=== PATIENT | female | born 1965 | race Caucasian/White ===

== ENCOUNTER 2017-05-19 12:22 | Emergency (ER) | payer MEDICARE, MEDICAID, SELFPAY ==
[2017-05-19 12:23] VITALS: BP 154/91; PULSE 125; RESP 16; TEMP 37; O2SAT 98; BMI 42.3
--- NOTE | 2017-05-19 13:26 | NURSING ---
NO LW OR POA
--- NOTE | 2017-05-19 13:45 | ED.DCSUM_ITS ---
- ER Visit Summary Date of Service: 05/19/17 Chief Complaint: Abscess History of Present Illness: The patient is a 51 F who states that she noted an abscess to the right axilla yesterday. It is already spontaneously draining. She denies fever. She states 2 people who live in the same house either have or have recently had MRSA. Patient is also complaining of increasing wheezing and shortness of breath consistent with her COPD. She is requesting steroids to help with her breathing. Physical Examination: Vital signs are significant for heart rate 125, otherwise unremarkable. Patient's lying in bed no acute distress. She is nontoxic appearing. Head neck examination is normal. Heart is tachycardic and regular. Lung sounds are with mild expiratory wheeze. Abdomen is soft, obese, nontender. Examination significant for right axilla which reveals a 1 x 2 cm draining abscess. No cellulitis is noted. Test Results: [] Emergency Department Course and Treatment: As her abscess is already draining, further I&D is not required at this time. She will be treated with doxycycline for MRSA coverage. She will also be given 4 days of prednisone, first dose given here. Treatment Plan: [] Disposition: Discharge Impression: 1. Cutaneous abscess right axilla 2. COPD exacerbation This note was generated with [employer] dictation software. It may contain incorrect words, spelling, and punctuation that were not noted in review of the chart prior to signing ED Disposition - Plan for ED Patient: Disposition: Home or Assisted Living Chief Complaint: Abscess Instructions: ED Staph Infec Abx Tx Only, ED COPD Flare Prescriptions: Prednisone [Deltasone] 60 mg PO DAILY #9 tablet Doxycycline Monohydrate 100 mg PO BID #20 capsule Referrals: Fredy Walsh MD [Primary Care Provider] - 1-2 Weeks
--- NOTE | 2017-05-19 14:01 | ED.DEP ---
ED Disposition - Plan for ED Patient: Disposition: Home or Assisted Living Chief Complaint: Abscess Instructions: ED Staph Infec Abx Tx Only, ED COPD Flare Prescriptions: Prednisone [Deltasone] 60 mg PO DAILY #9 tablet Doxycycline Monohydrate 100 mg PO BID #20 capsule Referrals: Fredy Walsh MD [Primary Care Provider] - 1-2 Weeks
[2017-05-19] MEDS: Doxycycline 100 MG CAPSULE PO (14:14)
[2017-05-19 14:17] VITALS: PULSE 112; RESP 16; O2SAT 98
== END 2017-05-19 14:18 | disposition home or self-care (01) ==
PROVIDERS: Emergency Provider Emergency Medicine; Family Provider Family Medicine; PCP Family Medicine
DX: L02.411 Cutaneous abscess of right axilla (principal); J44.1 Chronic obstructive pulmonary disease with (acute) exacerbation; E11.9 Type 2 diabetes mellitus without complications; I10 Essential (primary) hypertension; M06.9 Rheumatoid arthritis, unspecified; L40.9 Psoriasis, unspecified; E66.9 Obesity, unspecified; Z72.0 Tobacco use; Z79.84 Long term (current) use of oral hypoglycemic drugs; Z79.899 Other long term (current) drug therapy
CPT/HCPCS: 99283

== ENCOUNTER 2017-06-04 11:35 | Emergency (ER) | payer MEDICARE, MEDICAID, SELFPAY ==
[2017-06-04 11:37] VITALS: BP 109/82; PULSE 117; RESP 20; TEMP 36.8; O2SAT 97; BMI 43.2
--- NOTE | 2017-06-04 12:22 | RAD_ITS ---
STUDY: X-RAY CHEST REASON FOR EXAM: Female, 51 years old. Cough for several weeks. TECHNIQUE: PA and lateral views of the chest. COMPARISON: Comparison is made with prior study dated April 03, 2017. FINDINGS: EKG electrodes are seen. Hyperinflation. The lungs are clear. There is no demonstrated pleural abnormality. Normal size heart. Normal mediastinum and tony. Normal visualized pulmonary arteries. Normal visualized aortic arch and descending thoracic aorta. Normal visualized thoracic spine. Normal visualized ribs, clavicles, and shoulders. Surgical clips are seen in the left upper quadrant. RAD/Chest PA and Lateral IMPRESSION: Hyperinflation. The lungs are clear. Electronically Signed: Zander Bethea MD at 13:21 EST Tel [phone], Service support ,
--- NOTE | 2017-06-04 12:22 | EKG12_ITS ---
Test Reason : GENERAL Blood Pressure : / mmHG Vent. Rate : 114 BPM Atrial Rate : 114 BPM P-R Int : 130 ms QRS Dur : 074 ms QT Int : 340 ms P-R-T Axes : 043 039 030 degrees QTc Int : 468 ms Sinus tachycardia with occasional Premature ventricular complexes Otherwise normal ECG Confirmed by TAMI DANG, KAYDEN ([id number]), associate entertainment editor JOANIE MARTINES ([id number]) on 06/07/2017 2:55:07 PM Referred By: OTONIEL Confirmed By:KAYDEN GARRETT MD
--- NOTE | 2017-06-04 12:24 | ED.VISSUMM ---
- ER Visit Summary Date of Service: 06/04/17 Chief Complaint: Cough and dysuria History of Present Illness: The patient is a 51 F with history of COPD who presents for 1 week of cough and 2 days of dysuria. Patient states she has had a nonproductive cough for 1 week with some associated shortness of breath. She endorses a fever in the evenings. She has had nausea but no abdominal pain, chest pain, vomiting, or diarrhea. For today she is also had dysuria and suprapubic abdominal pain. She states she aches all over and just does not feel well. So states that she thinks she has a yeast infection as she is having some cottage cheeselike discharge. Patient is a smoker. She has not had any recent steroid use or antibiotics. She has history of diabetes, hypertension, COPD. Physical Examination: Vital signs: afebrile, hemodynamically stable, no hypoxia on room air General: well nourished, well developed, obese, in no distress Skin: warm, dry, no rash, no pallor HEENT: normocephalic and atraumatic; PERRL, EOMI, moist mucous membranes, neck is supple, paraspinal tenderness bilateral, full range of motion, no lymphadenopathy, no meningismus Cardiovascular: Tachycardic rate and rhythm without murmurs, no peripheral edema, 2+ pulses all distal extremities Respiratory: No increased work of breathing, lungs show diffuse wheezing and coarseness Abdominal: Abdomen is soft, suprapubic tenderness with normoactive bowel sounds, no guarding or rebound, no masses MSK: Moves all extremities, no deformities, normal strength Neuro: Awake and alert, oriented ?4. No facial droop, sensation and motor function intact and symmetric Test Results: Abnormal Lab Results 06/04/17 06/04/17 06/04/17 12:15 12:47 12:47 WBC 11.6 H RBC 5.30 Hgb 13.6 Hct 42.8 MCV 80.8 L MCH 25.7 L MCHC 31.8 L RDW 16.0 H RDW Differential 46.7 H Plt Count 322 MPV 9.7 Immature Gran % (Auto) 0.300 Neut % (Auto) 63.4 Lymph % (Auto) 27.2 [facility] % (Auto) 7.2 Eos % (Auto) 1.6 Baso % (Auto) 0.3 Absolute Neuts (auto) 7.4 Absolute Lymphs (auto) 3.15 Total Counted Not Reportable Sodium 140 Potassium 3.8 Chloride 103 Carbon Dioxide 25.0 Anion Gap 12 BUN 6 L Creatinine 0.68 Estim Creat Clear Calc 102.29 Est GFR (MDRD) Af Amer 118 Est GFR (MDRD) Non-Af 97 BUN/Creatinine Ratio 8.8 L Glucose 187 H Calcium 9.0 Troponin I < 0.02 Urine Color Yellow Urine Clarity Clear Urine pH 6.0 Ur Specific [place] 1.015 Urine Protein Negative Urine Glucose (UA) 1000 H Urine Ketones 50 H Urine Occult Blood 10 H Urine Nitrite Negative Urine Bilirubin Negative Urine Urobilinogen Normal Ur Leukocyte Esterase 100 H Urine RBC 0-5 SEEN Urine WBC 5-10 SEEN Ur Squamous Epith Cells 10-25 SEEN Urine Bacteria 1+ Urine Mucus 0 SEEN Urine Yeast 2+ Emergency Department Course and Treatment: Patient has history of COPD, and her respiratory exam is consistent with a COPD exacerbation. Chest x-ray showed no infiltrates but hyperinflation consistent with COPD. EKG showed a sinus rhythm at a tachycardic rate without ischemia or ectopy. Patient was given DuoNeb and Solu-Medrol as well as albuterol treatments. She had improvement in her breathing afterwards. Labs showed no significant derangements. Troponin negative. Urinalysis was significantly contaminated sample with epithelial cells and did have positive yeast likely secondary to patient's complaint of cottage cheese discharge. Patient was given Diflucan to treat the candidal vulvovaginitis. She was started on a prednisone burst that she will start tomorrow. She was also given a Z-Cabrera. She was given a prescription for 1 additional Diflucan to use in 1 week if she does not have resolution of symptoms. She was discharged home in improved condition and is to follow-up with her primary care doctor. Treatment Plan: [] Disposition: [] Impression: Candidal vulvovaginitis, COPD exacerbation This note was generated with [employer] dictation software. It may contain incorrect words, spelling, and punctuation that were not noted in review of the chart prior to signing ED Disposition - Plan for ED Patient: Disposition: Home or Assisted Living Chief Complaint: General Illness Instructions: ED COPD Flare, ED Vaginal Infec Fungal Tanya Prescriptions: Azithromycin [Zithromax Z-Cabrera] 250 mg PO UD #1 box Fluconazole [Diflucan] 150 mg PO X1 PRN #1 tab PRN Reason: yeast infection Prednisone [Deltasone] 40 mg PO DAILY #8 tab Referrals: Fredy Walsh MD [Primary Care Provider] - 1-2 Days if not improving Additional Instructions: Please continue using your medications for COPD at home as prescribed by your doctor. Take the prednisone starting tomorrow for 4 days. Take the antibiotic to help prevent any infection related to your COPD. If in 1 week you are not having improvement of your yeast infection, you may take the additional dose of Diflucan that has been prescribed to you.
--- NOTE | 2017-06-04 12:27 | ED.DCSUM_ITS ---
- ER Visit Summary Date of Service: 06/04/17 Chief Complaint: Cough and dysuria History of Present Illness: The patient is a 51 F with history of COPD who presents for 1 week of cough and 2 days of dysuria. Patient states she has had a nonproductive cough for 1 week with some associated shortness of breath. She endorses a fever in the evenings. She has had nausea but no abdominal pain, chest pain, vomiting, or diarrhea. For today she is also had dysuria and suprapubic abdominal pain. She states she aches all over and just does not feel well. So states that she thinks she has a yeast infection as she is having some cottage cheeselike discharge. Patient is a smoker. She has not had any recent steroid use or antibiotics. She has history of diabetes, hypertension, COPD. Physical Examination: Vital signs: afebrile, hemodynamically stable, no hypoxia on room air General: well nourished, well developed, obese, in no distress Skin: warm, dry, no rash, no pallor HEENT: normocephalic and atraumatic; PERRL, EOMI, moist mucous membranes, neck is supple, paraspinal tenderness bilateral, full range of motion, no lymphadenopathy, no meningismus Cardiovascular: Tachycardic rate and rhythm without murmurs, no peripheral edema , 2+ pulses all distal extremities Respiratory: No increased work of breathing, lungs show diffuse wheezing and coarseness Abdominal: Abdomen is soft, suprapubic tenderness with normoactive bowel sounds , no guarding or rebound, no masses MSK: Moves all extremities, no deformities, normal strength Neuro: Awake and alert, oriented ?4. No facial droop, sensation and motor function intact and symmetric Test Results: Abnormal Lab Results 06/04/17 06/04/17 06/04/17 12:15 12:47 12:47 WBC 11.6 H RBC 5.30 Hgb 13.6 Hct 42.8 MCV 80.8 L MCH 25.7 L MCHC 31.8 L RDW 16.0 H RDW Differential 46.7 H Plt Count 322 MPV 9.7 Immature Gran % (Auto) 0.300 Neut % (Auto) 63.4 Lymph % (Auto) 27.2 [place] % (Auto) 7.2 Eos % (Auto) 1.6 Baso % (Auto) 0.3 Absolute Neuts (auto) 7.4 Absolute Lymphs (auto) 3.15 Total Counted Not Reportable Sodium 140 Potassium 3.8 Chloride 103 Carbon Dioxide 25.0 Anion Gap 12 BUN 6 L Creatinine 0.68 Estim Creat Clear Calc 102.29 Est GFR (MDRD) Af Amer 118 Est GFR (MDRD) Non-Af 97 BUN/Creatinine Ratio 8.8 L Glucose 187 H Calcium 9.0 Troponin I < 0.02 Urine Color Yellow Urine Clarity Clear Urine pH 6.[address] 1.015 Urine Protein Negative Urine Glucose (UA) 1000 H Urine Ketones 50 H Urine Occult Blood 10 H Urine Nitrite Negative Urine Bilirubin Negative Urine Urobilinogen Normal Ur Leukocyte Esterase 100 H Urine RBC 0-5 SEEN Urine WBC 5-10 SEEN Ur Squamous Epith Cells 10-25 SEEN Urine Bacteria 1+ Urine Mucus 0 SEEN Urine Yeast 2+ Emergency Department Course and Treatment: Patient has history of COPD, and her respiratory exam is consistent with a COPD exacerbation. Chest x-ray showed no infiltrates but hyperinflation consistent with COPD. EKG showed a sinus rhythm at a tachycardic rate without ischemia or ectopy. Patient was given DuoNeb and Solu-Medrol as well as albuterol treatments. She had improvement in her breathing afterwards. Labs showed no significant derangements. Troponin negative. Urinalysis was significantly contaminated sample with epithelial cells and did have positive yeast likely secondary to patient's complaint of cottage cheese discharge. Patient was given Diflucan to treat the candidal vulvovaginitis. She was started on a prednisone burst that she will start tomorrow. She was also given a Z-Cabrera. She was given a prescription for 1 additional Diflucan to use in 1 week if she does not have resolution of symptoms. She was discharged home in improved condition and is to follow-up with her primary care doctor. Treatment Plan: [] Disposition: [] Impression: Candidal vulvovaginitis, COPD exacerbation This note was generated with [employer] dictation software. It may contain incorrect words, spelling, and punctuation that were not noted in review of the chart prior to signing ED Disposition - Plan for ED Patient: Disposition: Home or Assisted Living Chief Complaint: General Illness Instructions: ED COPD Flare, ED Vaginal Infec Fungal Tanya Prescriptions: Azithromycin [Zithromax Z-Cabrera] 250 mg PO UD #1 box Fluconazole [Diflucan] 150 mg PO X1 PRN #1 tab PRN Reason: yeast infection Prednisone [Deltasone] 40 mg PO DAILY #8 tab Referrals: Fredy Walsh MD [Primary Care Provider] - 1-2 Days if not improving Additional Instructions: Please continue using your medications for COPD at home as prescribed by your doctor. Take the prednisone starting tomorrow for 4 days. Take the antibiotic to help prevent any infection related to your COPD. If in 1 week you are not having improvement of your yeast infection, you may take the additional dose of Diflucan that has been prescribed to you.
[2017-06-04 12:33] LABS: Mucous, Urine 0 SEEN /hpf (<or=2+)
[2017-06-04] MEDS: Ipratropium/Albuterol Sulfate 3 ML AMPUL.NEB INHALATION (12:33)
[2017-06-04] MEDS: Albuterol 2.5 MG/3 ML VIAL.NEB. INHALATION ×3 (12:33)
[2017-06-04 12:36] LABS: Color, Urine Yellow (Yellow); Glucose, Dipstick 1000 mg/dl (Normal); Ketone-Dipstick 50 mg/dl (Negative); Leukocyte Esterase-Dipstick 100 /ul (Negative); Nitrite-Dipstick Negative (Negative); Occult Blood-Urine 10 /ul (Negative); Protein-Dipstick Negative (Negative); Specific Gravity, Urine 1.015 (1.002-1.030); Urine Bilirubin Dipstick Negative (Negative); Urine Clarity Clear (Clear); Urine Urobilinogen Normal (Normal)
[2017-06-04 12:43] LABS: White Blood Cells 5-10 SEEN /hpf (0-5)
[2017-06-04 12:44] LABS: Red Blood Cells-Urine 0-5 SEEN /hpf (0-5); Squamous Epithelial Cells - UA 10-25 SEEN /hpf (5-10)
[2017-06-04 12:45] LABS: Bacteria 1+ /hpf (None Seen); Yeast-Urine 2+ /hpf (None Seen)
[2017-06-04] MEDS: MethylPREDNISolone 125 MG/2 ML Vial IV (12:49)
[2017-06-04 12:55] LABS: Absolute Lymphocyte Count 3.15 X10^3/ul (0.83-4.51); Absolute Neutrophil Count 7.4 X10^3/uL (2.0-7.7); Basophil# 0.04 X10^3/uL; Basophil% 0.3 % (0-1); Eosinophil# 0.18 X10^3/uL; Eosinophils% 1.6 % (0-5); Hematocrit 42.8 % (37-47); Hemoglobin 13.6 g/dl (12.0-15.0); Lymphocyte # 3.15 X10^3/ul (4.0); Lymphocyte % 27.2 % (19-41); Mean Corp Hgb Conc 31.8 g/gl (32-36); Mean Corpuscular Hgb 25.7 pg (27.0-32.0); Mean Corpuscular Volume 80.8 fL (81-99); Mean Platelet Vol. 9.7 fl (6.2-12.0); Monocyte# 0.83 X10^3/uL; Monocyte% 7.2 % (0-10); Neutrophil # 7.36 X10^3/uL (2.7-7.7); Neutrophil % 63.4 % (47-70); Platelet Count 322 K/mm3 (150-450); RBC Distribution Width SD 46.7 fl (35.1-43.9); White Blood Count 11.6 K/mm3 (4.4-11.0)
[2017-06-04 12:56] LABS: POSITIVE COUNT NO; POSITIVE DIFFERENTIAL NO; POSITIVE MORPHOLOGY NO
[2017-06-04 13:17] LABS: Anion Gap 12 (5-15); BUN 6 mg/dL (7-18); BUN/Creat Ratio 8.8 RATIO (10-20); Chloride 103 mmol/L (98-107); Creatinine, Serum 0.68 mg/dL (0.55-1.02); EST Glomerular Filtration Rate 97 mL/min (>60); Est Glom Filt Rate - Afr Amer 118 mL/min (>60); Estimated Creatinine Clearance 102.29 ml/min; Glucose 187 mg/dL (74-106); Potassium 3.8 mmol/L (3.5-5.1); Sodium Level 140 mmol/L (136-145)
[2017-06-04 13:35] VITALS: PULSE 119; RESP 17; O2SAT 94
--- NOTE | 2017-06-04 14:26 | ED.DEP ---
ED Disposition - Plan for ED Patient: Disposition: Home or Assisted Living Chief Complaint: General Illness Instructions: ED Vaginal Infec Fungal Tanya, ED COPD Flare Prescriptions: Azithromycin [Zithromax Z-Cabrera] 250 mg PO UD #1 box Fluconazole [Diflucan] 150 mg PO X1 PRN #1 tab PRN Reason: yeast infection Prednisone [Deltasone] 40 mg PO DAILY #8 tab Referrals: Fredy Walsh MD [Primary Care Provider] - 1-2 Days if not improving Additional Instructions: Please continue using your medications for COPD at home as prescribed by your doctor. Take the prednisone starting tomorrow for 4 days. Take the antibiotic to help prevent any infection related to your COPD. If in 1 week you are not having improvement of your yeast infection, you may take the additional dose of Diflucan that has been prescribed to you.
[2017-06-04 14:32] VITALS: BP 134/76; PULSE 120; RESP 19; O2SAT 96
[2017-06-04] MEDS: Fluconazole 100 MG Tablet 200 MG PO (14:36)
== END 2017-06-04 14:46 | disposition home or self-care (01) ==
PROVIDERS: Emergency Provider Emergency Medicine; Family Provider Family Medicine; PCP Family Medicine
DX: J44.1 Chronic obstructive pulmonary disease with (acute) exacerbation (principal); B37.3 Candidiasis of vulva and vagina; I49.3 Ventricular premature depolarization; E11.9 Type 2 diabetes mellitus without complications; E66.9 Obesity, unspecified; F17.200 Nicotine dependence, unspecified, uncomplicated; Z79.84 Long term (current) use of oral hypoglycemic drugs; Z79.899 Other long term (current) drug therapy
CPT/HCPCS: 71046; 80048; 81001; 84484; 85025; 87086; 87088; 87804; 93005; 96361; 96374; 99285; J7040

== ENCOUNTER 2017-08-20 20:06 | Emergency (ER) | payer MEDICARE, MEDICAID, SELFPAY ==
[2017-08-20 20:10] VITALS: BP 136/84; PULSE 98; RESP 14; TEMP 36.3; O2SAT 98; BMI 42.8
--- NOTE | 2017-08-20 20:26 | ED.RN ---
PT REPEATEDLY ASKING FOR WATER AND HAS CHANGING COMPLAINTS. PT ALSO TOLD JAKUB THAT IF SHE HAD TO WAIT TOO LONG SHE WANTED TO CALL A [facility] TO GO HOME.
[2017-08-20 21:30] VITALS: PULSE 88; RESP 20
--- NOTE | 2017-08-20 22:02 | EKG12_ITS ---
Test Reason : CP Blood Pressure : / mmHG Vent. Rate : 092 BPM Atrial Rate : 092 BPM P-R Int : 128 ms QRS Dur : 074 ms QT Int : 388 ms P-R-T Axes : 066 075 045 degrees QTc Int : 479 ms Sinus rhythm with occasional Premature ventricular complexes Low voltage QRS Poor R wave progression Borderline ECG Confirmed by SAUL DANG, CHRISTOPH ([id number]), commissioning editor JOANIE MARTINES ([id number]) on 08/25/2017 2:02:43 PM Referred By: EMMANUEL
[2017-08-20 22:18] LABS: Color, Urine Yellow (Yellow); Glucose, Dipstick 100 mg/dl (Normal); Ketone-Dipstick 15 mg/dl (Negative); Leukocyte Esterase-Dipstick 500 /ul (Negative); Nitrite-Dipstick Positive (Negative); Occult Blood-Urine 25 /ul (Negative); Protein-Dipstick 30 mg/dl (Negative); Specific Gravity, Urine 1.015 (1.002-1.030); Urine Clarity Cloudy (Clear); Urine Urobilinogen 1 mg/dl (Normal)
[2017-08-20 22:24] LABS: Urine Bilirubin Dipstick 1 mg/dL (Negative)
[2017-08-20 22:25] LABS: Mucous, Urine 3+ /hpf (<or=2+)
[2017-08-20 22:26] LABS: Bacteria 3+ /hpf (None Seen)
[2017-08-20 22:26] LABS: Absolute Lymphocyte Count 3.06 X10^3/ul (0.83-4.51); Absolute Neutrophil Count 7.3 X10^3/uL (2.0-7.7); Basophil# 0.03 X10^3/uL; Basophil% 0.3 % (0-1); Eosinophil# 0.11 X10^3/uL; Hematocrit 39.2 % (37-47); Hemoglobin 12.4 g/dl (12.0-15.0); Lymphocyte # 3.06 X10^3/ul (4.0); Lymphocyte % 26.8 % (19-41); Mean Corp Hgb Conc 31.6 g/gl (32-36); Mean Corpuscular Hgb 25.2 pg (27.0-32.0); Mean Corpuscular Volume 79.5 fL (81-99); Mean Platelet Vol. 9.5 fl (6.2-12.0); Monocyte# 0.92 X10^3/uL; Monocyte% 8.1 % (0-10); Neutrophil # 7.27 X10^3/uL (2.7-7.7); Neutrophil % 63.6 % (47-70); POSITIVE COUNT NO; POSITIVE DIFFERENTIAL NO; POSITIVE MORPHOLOGY NO; Platelet Count 355 K/mm3 (150-450); RBC Distribution Width CV 16.6 % (11.6-14.6); RBC Distribution Width SD 47.7 fl (35.1-43.9); Red Blood Count 4.93 M/mm3 (4.2-5.4); White Blood Count 11.4 K/mm3 (4.4-11.0)
[2017-08-20 22:27] LABS: Red Blood Cells-Urine 0-5 SEEN /hpf (0-5); Squamous Epithelial Cells - UA 5-10 SEEN /hpf (5-10)
[2017-08-20 22:28] LABS: White Blood Cells 25-50 SEEN /hpf (0-5)
[2017-08-20 22:29] LABS: Transitional Epithelial - Ur 0-5 SEEN /hpf (0-5)
--- NOTE | 2017-08-20 22:41 | CT_ITS ---
STUDY: CT ABDOMEN AND PELVIS WITHOUT CONTRAST REASON FOR EXAM: Female, 51 years old. Nausea, vomiting and flank pain. RADIATION DOSAGE (If Supplied By Facility): CTDIvol = ( 24.03 ) mGy, DLP = ( 1344.80 ) mGycm TECHNIQUE: Transaxial images were obtained from the dome of the diaphragm to the symphysis pubis without oral contrast, and without intravenous contrast. Sagittal and coronal images were reconstructed. Individualized dose optimization techniques were used for this CT. COMPARISON: CT of the abdomen and pelvis dated January 29, 2017 FINDINGS: The visualized lung bases are unremarkable. The visualized portions of the heart are within normal limits. There is hepatomegaly with diffuse hepatic enlargement. Liver measures approximately 19.6 cm in greatest cephalocaudal dimension. There are surgical clips in the gallbladder fossa consistent with a prior cholecystectomy. Normal spleen. Normal pancreas. Normal bilateral adrenal glands. Normal right kidney. There is a nonobstructing calculus in the left renal collecting system measuring about 3 mm in size. There is no evidence for hydronephrosis, hydroureter or radiopaque ureteral calculus. Appear to be surgical sutures in the stomach suggesting patient may have had gastric bypass surgery. There is no evidence for dilated bowel, ascites or pneumoperitoneum. Small bowel has a grossly normal unenhanced appearance. Stool is visible throughout the colon with scattered diverticula. There is a calcified appendicolith. There is patchy atherosclerotic calcification of the abdominal aorta, without a demonstrated aneurysm. Normal inferior vena cava. Normal retroperitoneum. Urinary bladder is not distended secondary to Almazan catheter. There is atrophy of the uterus. There is a small umbilical hernia containing fat. The bones are osteopenic. There is moderate compression fracture of T12 with mild compression of L1 vertebral body. This is unchanged since the previous CT. There is deformity of the right iliac wing suggesting sequela of either previous trauma or bone graft harvesting. There is a sclerotic lesion within the left iliac wing probably related to bone island. CT/Abdomen/Pelvis without Cont IMPRESSION: 1. No CT evidence of acute intra-abdominal disease. 2. Nonobstructing left-sided renal calculus. 3. Cholecystectomy. 4. Hepatomegaly. 5. Osteoporosis with old compression fractures. Electronically Signed: Celena Geller MD at 0:30 EDT , Service support ,
[2017-08-20 22:48] LABS: Anion Gap 10 (5-15); BUN 7 mg/dL (7-18); BUN/Creat Ratio 10.7 RATIO (10-20); Calcium,Total 8.9 mg/dL (8.5-10.1); Chloride 106 mmol/L (98-107); Creatinine, Serum 0.66 mg/dL (0.55-1.02); EST Glomerular Filtration Rate 101 mL/min (>60); Est Glom Filt Rate - Afr Amer 122 mL/min (>60); Estimated Creatinine Clearance 105.39 ml/min; Glucose 99 mg/dL (74-106); Potassium 3.7 mmol/L (3.5-5.1); Sodium Level 142 mmol/L (136-145)
[2017-08-20 23:00] VITALS: BP 108/87; PULSE 98; RESP 20
[2017-08-20] MEDS: HYDROmorphone 0.5 MG/0.5 ML SYRINGE IV (23:08)
[2017-08-20] MEDS: Ceftriaxone 1 GM/50 ML BAG IV (23:09)
--- NOTE | 2017-08-21 00:23 | ED.VISSUMM ---
- ER Visit Summary Date of Service: 08/21/17 Chief Complaint: Nausea and vomiting History of Present Illness: The patient is a 51 F reports nausea and vomiting over the past 2 days. She does not have any nausea medication at home. After she arrived here in the triage area she started complaining of abdominal pain and pain in the right flank region. She denies measured fever. She has had a Almazan catheter in the past secondary to neurogenic bladder, but has not required catheterization in quite some time. Physical Examination: Vital signs are unremarkable. Patient sitting upright in bed no acute distress. Head neck examination is unremarkable. Heart is regular rate and rhythm. Lung sounds are grossly clear. Abdomen is soft with tenderness in the lower abdomen. No guarding or rebound is noted. Hypoactive bowel sounds are noted throughout. Skin examination does reveal dry chronic rash to her feet bilaterally with no sign of secondary infection. Test Results: EKG is sinus at 92 with no sign of acute ischemia. CBC was a white count 11.7. Chemistry studies are normal. Urinalysis is positive for nitrites with 25-50 white blood cells and 3+ bacteria. Emergency Department Course and Treatment: Nursing staff did note that she got up to the bedside commode but was only able to urinate a small amount. Almazan catheter was then placed but patient did not have a significant amount of retained urine. Patient was given a single dose of 0.5 mg Dilaudid along with Zofran. She is given IV fluids and a dose of IV Rocephin. Repeat evaluation patient is resting comfortably. Almazan catheter will be removed. She will be treated with Zofran and Keflex. She did request stronger pain medicine for home which I declined. Treatment Plan: [] Disposition: Discharge Impression: Cystitis This note was generated with [employer] dictation software. It may contain incorrect words, spelling, and punctuation that were not noted in review of the chart prior to signing ED Disposition - Plan for ED Patient: Chief Complaint: Nausea/Vomiting Referrals: Fredy Walsh MD [Primary Care Provider] -
--- NOTE | 2017-08-21 00:48 | ED.DEP ---
ED Disposition - Plan for ED Patient: Disposition: Home or Assisted Living Chief Complaint: Nausea/Vomiting Instructions: ED UTI Cystitis Female Prescriptions: Ondansetron [Zofran Odt] 4 mg PO Q8H PRN PRN #10 tablet PRN Reason: Nausea Cephalexin [Keflex] 500 mg PO Q6 #40 capsule Referrals: Fredy Walsh MD [Primary Care Provider] - 1 Week
[2017-08-21] MEDS: Ondansetron ODT 4 MG Tablet PO (01:01)
[2017-08-21 01:06] VITALS: BP 110/80; PULSE 76; RESP 18
== END 2017-08-21 01:08 | disposition home or self-care (01) ==
PROVIDERS: Emergency Provider Emergency Medicine; Family Provider Family Medicine; PCP Family Medicine
DX: N30.90 Cystitis, unspecified without hematuria (principal); N31.9 Neuromuscular dysfunction of bladder, unspecified; R21 Rash and other nonspecific skin eruption; L40.50 Arthropathic psoriasis, unspecified; E11.9 Type 2 diabetes mellitus without complications; J44.9 Chronic obstructive pulmonary disease, unspecified; R10.9 Unspecified abdominal pain; G89.29 Other chronic pain; K21.9 Gastro-esophageal reflux disease without esophagitis; E66.9 Obesity, unspecified; Z72.0 Tobacco use; Z79.899 Other long term (current) drug therapy
CPT/HCPCS: 51702; 74176; 80048; 81001; 85025; 87086; 87088; 87186; 93005; 96365; 96375; 99285; J7050; A4216

== ENCOUNTER 2017-11-29 12:52 | Emergency (ER) | payer MEDICARE, MEDICAID, SELFPAY ==
[2017-11-29 12:53] VITALS: PULSE 86; RESP 22; TEMP 37; O2SAT 98; BMI 39.2
[2017-11-29 12:58] VITALS: BP 81/65
[2017-11-29 13:02] VITALS: BP 90/53
[2017-11-29] MEDS: clonazePAM 0.5 MG Tablet PO (13:50)
--- NOTE | 2017-11-29 15:12 | ED.RN ---
Sat with patient outside for 45 min and gave emotional support and encouragement.
--- NOTE | 2017-11-29 16:13 | ED.VISSUMM ---
- ER Visit Summary Date of Service: 11/29/17 Chief Complaint: Anxiety History of Present Illness: The patient is a 51 F who presents with increasing anxiety over the past 2 weeks. Patient states she has been out of her Klonopin for the past 2 days. Patient states her anxiety became worse today. Patient states she got an argument with her boyfriend. Patient feels that this is what precipitated her anxiety. Patient also admits to some dysuria and foul odor to her urine. Patient states she has a history of neurogenic bladder and frequent urinary tract infections. Patient denies any fevers or chills. Patient does admit to some nausea and vomiting. Patient states she is only vomiting up clear liquids. Patient denies any diarrhea. Physical Examination: Vital signs are stable. Patient is afebrile. Patient is in no acute distress. Patient has a anxious mood and is tearful at times. Patient denies any suicidal or homicidal ideations. Oral mucosa is pink and moist. Neck is supple. There is no JVD noted. Heart was regular rate and rhythm. Lungs are clear and equal bilaterally. There is good respiratory effort noted. Abdomen is soft. Bowel sounds are normal. There is no tenderness. There is no rebound or guarding noted. Cranial nerves II through XII are intact. There are no focal motor or sensory deficits noted. Test Results: Urinalysis was obtained. Emergency Department Course and Treatment: Patient was given a dose of Klonopin here. Patient was instructed to follow-up with her primary care physician for further management of her anxiety medications. Patient understood and was agreeable with the plan. All questions were answered. Disposition: Discharged home Impression: 1. Acute anxiety This note was generated with [employer] software. It may contain incorrect words, spelling, and punctuation that were not noted in review of the chart prior to signing <Tk Almanza - Last Filed: 11/29/17 17:33> - ER Visit Summary Date of Service: 11/29/17 Chief Complaint: [] History of Present Illness: The patient is a 51 F [] Physical Examination: [] Test Results: [] Emergency Department Course and Treatment: [] Treatment Plan: Urinalysis negative. Patient will be discharged Disposition: [] Impression: [] This note was generated with [employer] software. It may contain incorrect words, spelling, and punctuation that were not noted in review of the chart prior to signing <Klever Quinones - Last Filed: 11/29/17 18:15> ED Disposition <Tk Almanza - Last Filed: 11/29/17 17:33> <Klever Quinones - Last Filed: 11/29/17 18:15> - Plan for ED Patient: Disposition: Home or Assisted Living Chief Complaint: Anxiety Diagnosis: Anxiety and depression Instructions: ED Stress React Referrals: Fredy Walsh MD [Primary Care Provider] -
[2017-11-29 16:31] VITALS: BP 114/81; PULSE 113; RESP 22
[2017-11-29 17:41] LABS: Bacteria 0 SEEN /hpf (None Seen); Red Blood Cells-Urine 0 SEEN /hpf (0-5)
[2017-11-29 17:43] LABS: Color, Urine Amber (Yellow); Glucose, Dipstick Normal (Normal); Ketone-Dipstick 15 mg/dl (Negative); Leukocyte Esterase-Dipstick 25 /ul (Negative); Nitrite-Dipstick Negative (Negative); Occult Blood-Urine Negative /ul (Negative); Protein-Dipstick 30 mg/dl (Negative); Specific Gravity, Urine 1.025 (1.002-1.030); Urine Clarity Clear (Clear); Urine Urobilinogen 1 mg/dl (Normal)
[2017-11-29 17:57] LABS: Urine Bilirubin Dipstick 1 mg/dL (Negative)
[2017-11-29 17:59] LABS: Mucous, Urine 2+ /hpf (<or=2+); Squamous Epithelial Cells - UA 10-25 SEEN /hpf (5-10)
[2017-11-29 18:00] LABS: Hyaline Cast 0-5 SEEN /lpf (0-5)
[2017-11-29 18:01] LABS: White Blood Cells 0-5 SEEN /hpf (0-5)
--- NOTE | 2017-11-29 18:15 | ED.DEP ---
ED Disposition - Plan for ED Patient: Disposition: Home or Assisted Living Chief Complaint: Anxiety Diagnosis: Anxiety and depression Instructions: ED Stress React Referrals: Fredy Walsh MD [Primary Care Provider] -
== END 2017-11-29 18:36 | disposition home or self-care (01) ==
PROVIDERS: Emergency Provider Emergency Medicine; Family Provider Family Medicine; PCP Family Medicine
DX: F41.9 Anxiety disorder, unspecified (principal); F32.9 Major depressive disorder, single episode, unspecified; R30.0 Dysuria; N31.9 Neuromuscular dysfunction of bladder, unspecified; R11.2 Nausea with vomiting, unspecified; Z72.0 Tobacco use; Z79.84 Long term (current) use of oral hypoglycemic drugs; Z79.899 Other long term (current) drug therapy; Z87.440 Personal history of urinary (tract) infections; Z98.84 Bariatric surgery status
CPT/HCPCS: 81001; 99285; P9612

== ENCOUNTER 2018-03-14 20:03 | Emergency (ER) | payer MEDICARE, MEDICAID, SELFPAY ==
[2018-03-14 20:05] VITALS: BP 134/97; PULSE 122; RESP 24; TEMP 37.4; O2SAT 97; BMI 43.2
--- NOTE | 2018-03-14 20:36 | RAD_ITS ---
STUDY: X-RAY - LEFT HAND REASON FOR EXAM: Female, 52 years old. Fall. TECHNIQUE: 3 view(s) of the hand. COMPARISON: None. FINDINGS: Normal radiocarpal articulation. Normal distal radioulnar joint. Normal visualized carpal bones. Normal carpal articulations Normal carpometacarpal articulation of the thumb. Normal second through fifth carpometacarpal joints. Normal metacarpi. Normal metacarpophalangeal joint of the thumb. Normal interphalangeal joint of the thumb. Normal proximal and distal phalanges of the thumb. Normal metacarpophalangeal joints of the second through fifth fingers. Normal proximal and distal interphalangeal joints of the second through fifth fingers. Normal phalanges of the second through fifth fingers. The soft tissue structures are unremarkable. RAD/Hand Min 3 Views IMPRESSION: Normal x-ray examination of the hand. Electronically Signed: Vidal Richardson MD at 21:51 EST , Service support ,
--- NOTE | 2018-03-14 20:36 | RAD_ITS ---
STUDY: X-RAY - LEFT WRIST REASON FOR EXAM: Female, 52 years old. Left wrist pain. TECHNIQUE: 3 view(s) of the wrist were obtained. COMPARISON: None. FINDINGS: Normal visualized distal radius and ulna. Normal radiocarpal articulation. Normal distal radioulnar articulation. Normal carpal bones. Normal carpal articulations. Normal carpometacarpal articulation of the thumb. Normal second through fifth carpometacarpal articulations. Normal visualized metacarpal bones. The soft tissue structures are unremarkable. There is no demonstrated acute fracture. RAD/Wrist min 3 Views IMPRESSION: Normal x-ray examination of the wrist. Electronically Signed: Vidal Richardson MD at 21:55 EST , Service support ,
[2018-03-14] MEDS: Ketorolac 30 MG/ML Syringe IM (20:54)
--- NOTE | 2018-03-14 20:58 | RAD_ITS ---
STUDY: X-RAY - LEFT RADIUS AND ULNA REASON FOR EXAM: Female, 52 years old. Fall. Left arm pain. TECHNIQUE: 2 view(s) of the forearm. COMPARISON: None. FINDINGS: There is no demonstrated soft tissue swelling. Normal visualized radius. Normal visualized ulna. There is no demonstrated acute fracture. RAD/Forearm 2 Views IMPRESSION: Normal x-ray examination of the radius and ulna. Electronically Signed: Vidal Richardson MD at 21:57 EST , Service support ,
--- NOTE | 2018-03-14 21:03 | RAD_ITS ---
STUDY: X-RAY CHEST REASON FOR EXAM: Female, 52 years old. Fall. Rib pain. TECHNIQUE: Single AP portable view of the chest. COMPARISON: None. FINDINGS: There is hyperinflation of the lungs consistent with chronic obstructive lung disease (COPD). No infiltrates. No effusions. There is no demonstrated pleural abnormality. Normal size heart. Normal mediastinum and tony. Normal visualized pulmonary arteries. Normal visualized aortic arch and descending thoracic aorta. Normal visualized thoracic spine. Normal visualized ribs, clavicles, and shoulders. There is no demonstrated abnormality of the visualized soft tissue structures of the upper abdomen. RAD/Chest 1 View (Portable) IMPRESSION: There are findings consistent with COPD. There is no evidence of acute chest disease. Electronically Signed: Vidal Richardson MD at 21:56 EST , Service support ,
[2018-03-14 21:28] VITALS: PULSE 121; RESP 18
[2018-03-14] MEDS: Ipratropium/Albuterol Sulfate 3 ML AMPUL.NEB INHALATION (21:28)
--- NOTE | 2018-03-14 22:17 | ED.VISSUMM ---
- ER Visit Summary Date of Service: 03/14/18 Chief Complaint: Left arm injury History of Present Illness: The patient is a 52 F presenting for evaluation secondary to a left arm injury. Patient reports that she suffered a mechanical fall on an outstretched left arm. She denies hitting her head or loss of consciousness. She states that there is pain associated with movement palpation. Patient also states that she is having some wheezing from her COPD. Physical Examination: Vital signs are within normal limits other than a heart rate of 121. Obese female no acute distress. Head normocephalic atraumatic. Heart minimally tachycardic and regular. Chest nontender, no evidence of abnormal chest excursion. Wheezing bilaterally with no respiratory distress noted. Abdomen soft nontender. Extremity exam shows tenderness to palpation of the forearm wrist and hand with normal range of motion of the fingers normal capillary refill normal pulses. Patient does not have focal tenderness over the anatomical snuffbox. Test Results: Wrist, forearm, hand, and chest x-rays are negative per radiology my personal review Emergency Department Course and Treatment: Patient presented for evaluation secondary to a fall. She was significantly wheezy she was given a DuoNeb in the emergency department and maintain normal oxygenation. Patient was given Toradol and Tylenol for treatment of pain. Radiographs were found to be negative. Patient was given a wrist splint and discharged with a course of Dolobid. Disposition: Discharge Impression: Left wrist sprain This note was generated with [employer] dictation software. It may contain incorrect words, spelling, and punctuation that were not noted in review of the chart prior to signing ED Disposition - Plan for ED Patient: Disposition: Home or Assisted Living Chief Complaint: Upper Extremity Injury Diagnosis: Left wrist sprain Instructions: ED Sprain Wrist Prescriptions: Diflunisal [Dolobid] 500 mg PO BID #28 tab Referrals: Fredy Walsh MD [Primary Care Provider] - 5-7 Days
[2018-03-14] MEDS: Acetaminophen 500 MG Tablet 1000 MG PO (22:21)
[2018-03-14 22:32] VITALS: PULSE 121; O2SAT 93
--- NOTE | 2018-03-14 22:37 | ED.RN ---
called taxi for pt
--- OUTSIDE RECORDS SUMMARY | 2018-06-16 10:24 | XMS RPT_ITS ---
:1965 Author Organization OHIP Care Team Providers Name Role Phone DC SMALLS (MAP DRAFTER) Attending Unavailable MIGNON WALSH Referring Unavailable MIGNON WALSH Attending Unavailable MIGNON WALSH Referring Unavailable OPALBROMIGNON HENSON Referring Unavailable SLIMDC CHILDRESS (MAP DRAFTER) Referring Unavailable SLIMDC CHILDRESS (MAP DRAFTER) Attending Unavailable MIGNON WALSH Referring Unavailable MIGNON WALSH Attending Unavailable CHASE RAMÍREZ (MAP DRAFTER) Attending Unavailable MIGNON WALSH Referring Unavailable MIGNON WALSH Attending Unavailable MIGNON WALSH Attending Unavailable MIGNON WALSH Referring Unavailable MIGNON WALSH Referring Unavailable MIGNON WALSH Attending Unavailable MIGNON WALSH Referring Unavailable DC SMALLS (MAP DRAFTER) Attending Unavailable DC SMALLS (MAP DRAFTER) Referring Unavailable MIGNON WALSH Attending Unavailable DC SMALLS (MAP DRAFTER) Attending Unavailable MIGNON WALSH Referring Unavailable DC SMALLS (MAP DRAFTER) Referring Unavailable MIGNON WALSH Attending Unavailable MIGNON WALSH Referring Unavailable CHASE RAMÍREZ (MAP DRAFTER) Attending Unavailable DC SMALLS (MAP DRAFTER) Referring Unavailable MARICHUY LIRA (MAP DRAFTER) Attending Unavailable MIGNON WALSH Referring Unavailable Mignon Walsh Primary Care Unavailable Daniel Spencer Attending Unavailable Nico, Mignon Primary Care Unavailable Jackie Madsen Attending Unavailable Mignon Walsh Primary Care Unavailable Yaneli Cheng Attending Unavailable Nico, Mignon Primary Care Unavailable Jackie Madsen Attending Unavailable Mignon Walsh Primary Care Unavailable Tk Almanza Attending Unavailable PROBLEMS PROBLEMS DATE TYPE CONDITION / CODE ATTENDING STATUS SOURCE 04/20/2018 Active Encounter for MARICHUY LIRA Active [facility] screening for other (MAP DRAFTER) [facility] disorder / [place] Z13.89(ICD-10) Repository 02/04/2018 Active Unspecified NA Active [facility] bacterial pneumonia [facility] / J15.9(ICD-10) [facility] Repository 03/06/2015 Active Essential (primary) NA Active [facility] hypertension / [facility] I10(ICD-10) [facility] Repository 12/14/2017 Active Pain in right wrist NA Active [facility] / M25.531(ICD-10) Clinic Main [place] Repository 12/14/2017 Active Pain in left foot / NA Active [facility] M79.672(ICD-10) Clinic Main [place] Repository 09/06/2017 Unknown R11.2 - Nausea with Jackie Madsen Active [facility] vomiting, Community unspecified / Hospital R11.2(ICD-10) Repository 04/17/2016 Active Urinary tract NA Active [facility] infection, site not Clinic Main specified / [place] N39.0(ICD-10) Repository 11/02/2014 Active Atrophy of thyroid NA Active [facility] (acquired) / Clinic Main E03.4(ICD-10) [facility] Repository 12/22/2005 Active Mixed hyperlipidemia NA Active [facility] / E78.2(ICD-10) Clinic Main [place] Repository 07/01/2017 Active Unknown / NICO Active [facility] UNK(Unknown) MIGNON [facility] [place] Repository 01/24/2015 Active Rheumatoid arthritis CHASE RAMÍREZ Active [facility] without rheumatoid (MAP DRAFTER) Clinic Main factor, unspecified [facility] site / Repository M06.00(ICD-10) 09/06/2017 Unknown R05 - Cough / Yaneil Cheng Active [facility] R05(ICD-10) [facility] Rep[facility] 02/23/2006 Active Cough / R05(ICD-10) NA Active [facility] Main [place] Repository 05/12/2017 Active Other terminologist NA Active [facility] (current) drug [facility] therapy / [place] Z79.899(ICD-10) Repository 05/12/2017 Active Dysuria / NA Active [facility] R30.0(ICD-10) Clinic Main [place] Repository 08/29/2015 Active Type 2 diabetes NA Active [facility] mellitus with [facility] hyperglycemia / [place] E11.65(ICD-10) Repository PROCEDURES PROCEDURES No Procedure Records FoundRESULTS RESULTS PROGRESS Observed: 04/20/2018 Status: COMPLETED Source: ON[facility]X 2:07 PM [facility] REPOSITORY HNO ID: [id number] Author: Marichuy Kelley (Technical Specialist [employer]) [place] Service: (none) Author Type: Nurse Practitioner Type: Progress Notes Filed: 04/20/2018 3:59 PM Note Text: Katherin Suero is a 52 year old female who presents today for evaluation of Patient presents with: New Patient Evaluation: UTI Consultation requested by Dr. Walsh for an opinion regarding dysuria. My final recommendations will be communicated back to the requesting physician by way of shared medical record or letter via US mail CHIEF COMPLAINT AND HISTORY OF PRESENT ILLNESS CC: confusion, dizzy, not feeling well, short of breath 52 year old female with DM presents for concern that she may have a UTI. She reports confusion, high blood glucose at home 300, +wheezing that has worsened over the last week. +chills for 2 days +lower abdominal discomfort PVR 2 cc History of NGB per the patient, past SPT +urinary incontinence throughout the day 10-12 pads per day Last seen by Dr. Porter at [facility] in [place] Past Urological History: Stones:no Surgery:no Tumors:no Infections:yes: VITALS: Last menstrual period 01/27/2006. ALLERGIES: Macrobid [Nitrofurantoin Monohyd/M-Cryst]; Mri Dye [Contrast Dye]; Ct Scan Dye [Other]; Fentanyl; Metformin; Sulfa (Sulfonamide Antibiotics) MEDICATIONS: Current Outpatient Prescriptions: levothyroxine (SYNTHROID) 150 mcg tablet TAKE 1 TABLET BY MOUTH DAILY BEFORE BREAKFAST. Disp: 28 tablet Rfl: 5 abatacept (ORENCIA) 125 mg/mL syrg Inject 125 mg subcutaneously once each week. Disp: 12 Syringe Rfl: 0 gabapentin (NEURONTIN) 800 mg tablet TAKE 2 TABLETS BY MOUTH EVERY MORNING AND TAKE 1 AND 1/2 TABLETS IN THE AFTERNOON AND TAKE 1 TABLET AT BEDTIME Disp: 135 tablet Rfl: 2 cyclobenzaprine (FLEXERIL) 5 mg tablet TAKE 2 TABLETS BY MOUTH EVERY MORNING AND 1 TABLET IN THE AFTERNOON AND 2 TABLETS AT NIGHT Disp: 150 tablet Rfl: 2 hydroxychloroquine (PLAQUENIL) 200 mg tablet Take 1.5 tablets by mouth once daily. Disp: 135 tablet Rfl: [address] (PROTONIX) 40 mg tablet TAKE 1 TABLET BY MOUTH DAILY Disp: 28 tablet Rfl: 11 atorvastatin (LIPITOR) 20 mg tablet TAKE 1 TABLET BY MOUTH AT BEDTIME Disp: 28 tablet Rfl: 11 glimepiride (AMARYL) 4 mg tablet TAKE 1 TABLET BY MOUTH DAILY Disp: 28 tablet Rfl: 5 Nebulizer NEBULIZER FOR HOME USE. DX: J45.909 Disp: 1 Device Rfl: 0 albuterol (PROVENTIL) 2.5 mg /3 mL (0.083 %) nebulizer solution Use 3 mL via nebulizer every 4 hours as needed for Wheezing/Shortness of Breath. Use over 5-15minutes. Disp: 150 Vial Rfl: 11 ibuprofen (MOTRIN) 800 mg tablet Take 1 tablet by mouth every 8 hours as needed for Pain. Take with food. Disp: 60 tablet Rfl: 2 benzonatate (TESSALON PERLE) 100 mg capsule Take 1 capsule by mouth three times daily as needed. Disp: 30 capsule Rfl: 0 budesonide (PULMICORT FLEXHALER) 180 mcg/actuation aepb Inhale 2 Puffs as instructed twice daily. Disp: 3 Inhaler Rfl: 1 albuterol HFA (PROVENTIL HFA, VENTOLIN HFA) 90 mcg/actuation inhaler Inhale 2 Puffs as instructed every 4 hours as needed. Disp: 1 Inhaler Rfl: 5 Nebulizer 1 Each every 4 hours as needed. NEBULIZER FOR HOME USE. DX: J44.1Albuterol solution Disp: 1 Each Rfl: 0 blood sugar diagnostic (BLOOD GLUCOSE TEST) test strip Test blood sugar(s) 1-2 times daily and PRN. Dx: Type 2 DM - Controlled E11.9 Insulin: No Disp: 100 Strip Rfl: 5 Lancets lancets Test blood sugar(s) 1-2 times daily. Dx: Type 2 DM - Controlled E11.9 Insulin: No Disp: 50 Each Rfl: 11 Blood-Glucose Meter monitoring kit Glucose Meter of Choice - Kit - Dx: Type 2 DM - Uncontrolled E11.65 Disp: 1 Each Rfl: 0 JARDIANCE 10 mg tablet TAKE 1 TABLET BY MOUTH EVERY MORNING Disp: 28 tablet Rfl: 5 lisinopril (ZESTRIL, PRINIVIL) 10 mg tablet TAKE 1 TABLET BY MOUTH DAILY Disp: 28 tablet Rfl: 5 COMPOUNDED PRESCRIPTION Please provide patient with new nebulizer machine and supplies.Diagnosis: Wheezing, dyspnea. Disp: 1 Each Rfl: 0 COMPOUNDED PRESCRIPTION Adult diaper: Depends: Size: [id number]: N39.46 Mixed incontinence urge and stress (female)ICD-10: N39.0 Recurrent UTI (urinary tract infection). Disp: 14 Each Rfl: 5 Lancets lancets Test blood sugar(s) one times daily. Dx: Type 2 DM - Controlled E11.9 Insulin: No Disp: 100 Each Rfl: 3 DULoxetine (CYMBALTA) 60 mg capsule Take 120 mg by mouth once daily. Disp: Rfl: LORazepam (ATIVAN) 0.5 mg tab Take by mouth twice daily. Disp: Rfl: predniSONE (DELTASONE) 10 mg tablet TAKE 1 TABLET BY MOUTH ONCE DAILY. Disp: 30 tablet Rfl: 5 COMPOUNDED PRESCRIPTION Powerstep orthotics(L30.9) Dermatitis (primary encounter diagnosis)(72.2) Plantar fasciitis, bilatera(E11.49) Other diabetic neurological complication associated with type 2 diabetes mellitus (HCC) Disp: 1 Device Rfl: 0 COMPOUNDED PRESCRIPTION Physical therapy ordered for her for a home modification evaluation to evaluate need for lift chair or other DME that will assist patient in home and promote safety. Disp: 1 Each Rfl: 0 BUSPIRONE HCL (BUSPAR ORAL) Take 30 mg by mouth twice daily. Disp: Rfl: No current facility-administered medications for this visit. SOCIAL HISTORY: Social History Marital status: Single Spouse name: Years of education: Number of children: 2 Occupational History Occupation Employer Comment [employer] Currently on Disab* Social History Main Topics Smoking status: Current Every Day Smoker Packs/day: 1.00 Years: 32.00 Types: Cigarettes Start date: 12/28/1984 Smokeless tobacco: Never Used Alcohol use: No Drug use: No Sexual activity: Not Currently PAST MEDICAL HISTORY: PAST MEDICAL HISTORY Diagnosis Date - Asthma with exacerbation - Chronic back pain - Chronic bronchitis (HCC) 06/[address] Ponce - Chronic gastritis egd 02/07/14 - Depression [facility] - Dyslipidemia elevated TG, low HDL - H. pylori infection 06/2013 - Hypothyroidism - Impaired fasting glucose 06/2013 - Leukocytosis - Mitral valve disorders(424.0) MILD PROLAPSE NO REGUGITATION - Neuropathy ([facility]) b/l feet - NIMESH (obstructive sleep apnea) - Osteoarthritis of both knees 08/2013 - Psoriatic arthritis ([facility]) Dr. Rebecca Burgess - Rheumatoid arthritis ([facility]) - RLL pneumonia ([facility]) 04/19/13 - Tobacco use disorder - Unspecified asthma(493.90) - Unspecified essential hypertension Essential hypertension - Viral pneumonia, unspecified Pneumonia PAST SURGICAL HISTORY: PAST SURGICAL HISTORY Procedure Laterality Date - CHOLECYSTECTOMY 1995 lap - COLONOSCOP W/ OR W/O BRSH SPEC 02/07/2014 Colonoscopy - DOPPLER ECHO HEART,COMPLETE 09/02/05 EF= 65% - EGD W/O OR W/BRUSH/WASH 02/07/2014 EGD - GASTRIC BYPASS HX 1986 - LEFT HEART CATH,PERCUTANEOUS 12/02/05 NORMAL - LUMBAR SPINE FUSION COMBINED 1992 X6 FAMILY HISTORY: FAMILY HISTORY Problem Relation Age of Onset - Hypertension Mother - Cancer Father lung 70 - Stroke Maternal Grandfather 81 - Breast Cancer Maternal Aunt All histories reviewed on this date 04/20/2018: Yes REVIEW OF SYSTEMS: CONSTITUTIONAL: fever EYES: Negative for redness, blurry vision, double vision or loss of vision EAR, NOSE AND THROAT: DENIES HAVING: Dysphagia CARDIOVASCULAR: Negative for chest pain. RESPIRATORY: Wheezing GI: No nausea, vomiting, or diarrhea MUSCULOSKELETAL: denies back pain or muscular weakness SKIN: Negative for lesions, rash, and itching PSYCH: Negative for sleep disturbance, mood disorder and recent psychosocial stressors. HEMATOLOGY/LYMPHOLOGY Negative for prolonged bleeding, bruising easily or swollen nodes ENDOCRINE: +DM All other systems reviewed and are negative other than HPI. PHYSICAL EXAM: constitutional: overweight cardiovascular: normal femoral pulses to palpate respiratory: +expiratory wheezing in all batista bilaterally gi: abdomen soft, non-tender without masses, hernia or organomegaly gu: bladder: not palpable, no tenderness. skin: no rashes or bruises noted. Neck: Supple, no adenopathy Extremities: Extremities normal. No deformities, edema, or skin discoloration. Good capillary refill. Lymphatic: No palpable lymph nodes. Neuro: Gait normal. Sensation grossly intact. RADIOLOGY REPORTS REVIEWED: Yes LAB RESULTS REVIEWED: Yes Component Latest Ref Rng AND Units 04/20/2018 GLUCOSE UA (POCT) Negative mg/dL >=1000 (A) BILIRUBIN UA (POCT) Negative Small (A) KETONE UA (POCT) Negative mg/dL Trace SPECIFIC GRAVITY UA (POCT) 1.005 - 1.030 >=1.030 HEMOGLOBIN/BLOOD UA (POCT) Negative Negative PH UA (POCT) 4.5 - 8.0 5.0 PROTEIN UA (POCT) Negative mg/dL Trace (A) UROBILINOGEN UA (POCT) Normal E.U./dL 0.2 NITRITE UA (POCT) Negative Negative LEUKOCYTES UA (POCT) Negative Negative COLOR UA (POCT) Dark yellow CLARITY UA (POCT) Cloudy IMAGING STUDIES INDEPENDENTLY REVIEWED: No OLD RECORDS REVIEWED: Yes: Extensive: No ASSESSMENT/PLAN: ASSESSMENT/PLAN: 1. Expiratory wheezing - ICD9: 786.07, ICD10: R06.2 (primary diagnosis) -patient with chills -history of COPD -report called to [facility], Dr. Sommer who is very familiar with the patient, she is being take to [facility] by her scheduled transport, patient refused a wheelchair 2. Uncontrolled type 2 diabetes mellitus without complication, without long-term current use of insulin (HCC) - ICD9: 250.02, ICD10: E11.65 -uncontrolled 3. Glucosuria - ICD9: 791.5, ICD10: R81 ->1000 -uncontrolled 4. Neurogenic bladder - ICD9: 596.54, ICD10: N31.9 -patient reports past nerve damage during spinal surgery -NGB per patient seen by Dr. Porter at [facility], records requested -I will review her urology notes from the outside and discuss with Dr. Gongora to see if she is a candidate for a SPT, which she is requesting. Marichuy Lira APRN.MAP DRAFTER Disease Specificity: Acuity: Acute Severity: Moderate, 0/10 Anatomic Site: lungs Underlying Condition/Causal Agent: COPD, possible pneumonia Associated Conditions/Manifestations: N/A Patient is instructed to schedule a follow up in 3 months. Marichuy Lira APRN.MAP DRAFTER CNOV Observed: 04/20/2018 Status: COMPLETED Source: ONYX 1:40 PM [facility] REPOSITORY Office Visit (UROLST) KATHERIN SUERO ([id number]) 1965 F CHT Date Time Provider Department 04/20/18 1:40 PM MARICHUY LIRA (MAP DRAFTER) UROLST During your visit today, we recorded the following information about you: Marichuy Lira APRN.CNP 04/20/2018 3:59 PM Signed Katherin Suero is a 52 year old female who presents today for evaluation of Patient presents with: New Patient Evaluation: UTI Consultation requested by Dr. Walsh for an opinion regarding dysuria. My final recommendations will be communicated back to the requesting physician by way of shared medical record or letter via US mail CHIEF COMPLAINT AND HISTORY OF PRESENT ILLNESS CC: confusion, dizzy, not feeling well, short of breath 52 year old female with DM presents for concern that she may have a UTI. She reports confusion, high blood glucose at home 300, +wheezing that has worsened over the last week. +chills for 2 days +lower abdominal discomfort PVR 2 cc History of NGB per the patient, past SPT +urinary incontinence throughout the day 10-12 pads per day Last seen by Dr. Porter at [facility] in [place] Past Urological History: Stones:no Surgery:no Tumors:no Infections:yes: VITALS: Last menstrual period 01/27/2006. ALLERGIES: Macrobid [Nitrofurantoin Monohyd/M-Cryst]; Mri Dye [Contrast Dye]; Ct Scan Dye [Other]; Fentanyl; Metformin; Sulfa (Sulfonamide Antibiotics) MEDICATIONS: Current Outpatient Prescriptions: levothyroxine (SYNTHROID) 150 mcg tablet TAKE 1 TABLET BY MOUTH DAILY BEFORE BREAKFAST. Disp: 28 tablet Rfl: 5 abatacept (ORENCIA) 125 mg/mL syrg Inject 125 mg subcutaneously once each week. Disp: 12 Syringe Rfl: 0 gabapentin (NEURONTIN) 800 mg tablet TAKE 2 TABLETS BY MOUTH EVERY MORNING AND TAKE 1 AND 1/2 TABLETS IN THE AFTERNOON AND TAKE 1 TABLET AT BEDTIME Disp: 135 tablet Rfl: 2 cyclobenzaprine (FLEXERIL) 5 mg tablet TAKE 2 TABLETS BY MOUTH EVERY MORNING AND 1 TABLET IN THE AFTERNOON AND 2 TABLETS AT NIGHT Disp: 150 tablet Rfl: 2 hydroxychloroquine (PLAQUENIL) 200 mg tablet Take 1.5 tablets by mouth once daily. Disp: 135 tablet Rfl: [address] (PROTONIX) 40 mg tablet TAKE 1 TABLET BY MOUTH DAILY Disp: 28 tablet Rfl: 11 atorvastatin (LIPITOR) 20 mg tablet TAKE 1 TABLET BY MOUTH AT BEDTIME Disp: 28 tablet Rfl: 11 glimepiride (AMARYL) 4 mg tablet TAKE 1 TABLET BY MOUTH DAILY Disp: 28 tablet Rfl: 5 Nebulizer NEBULIZER FOR HOME USE. DX: J45.909 Disp: 1 Device Rfl: 0 albuterol (PROVENTIL) 2.5 mg /3 mL (0.083 %) nebulizer solution Use 3 mL via nebulizer every 4 hours as needed for Wheezing/Shortness of Breath. Use over 5-15minutes. Disp: 150 Vial Rfl: 11 ibuprofen (MOTRIN) 800 mg tablet Take 1 tablet by mouth every 8 hours as needed for Pain. Take with food. Disp: 60 tablet Rfl: 2 benzonatate (TESSALON PERLE) 100 mg capsule Take 1 capsule by mouth three times daily as needed. Disp: 30 capsule Rfl: 0 budesonide (PULMICORT FLEXHALER) 180 mcg/actuation aepb Inhale 2 Puffs as instructed twice daily. Disp: 3 Inhaler Rfl: 1 albuterol HFA (PROVENTIL HFA, VENTOLIN HFA) 90 mcg/actuation inhaler Inhale 2 Puffs as instructed every 4 hours as needed. Disp: 1 Inhaler Rfl: 5 Nebulizer 1 Each every 4 hours as needed. NEBULIZER FOR HOME USE. DX: J44.1Albuterol solution Disp: 1 Each Rfl: 0 blood sugar diagnostic (BLOOD GLUCOSE TEST) test strip Test blood sugar(s) 1-2 times daily and PRN. Dx: Type 2 DM - Controlled E11.9 Insulin: No Disp: 100 Strip Rfl: 5 Lancets lancets Test blood sugar(s) 1-2 times daily. Dx: Type 2 DM - Controlled E11.9 Insulin: No Disp: 50 Each Rfl: 11 Blood-Glucose Meter monitoring kit Glucose Meter of Choice - Kit - Dx: Type 2 DM - Uncontrolled E11.65 Disp: 1 Each Rfl: 0 JARDIANCE 10 mg tablet TAKE 1 TABLET BY MOUTH EVERY MORNING Disp: 28 tablet Rfl: 5 lisinopril (ZESTRIL, PRINIVIL) 10 mg tablet TAKE 1 TABLET BY MOUTH DAILY Disp: 28 tablet Rfl: 5 COMPOUNDED PRESCRIPTION Please provide patient with new nebulizer machine and supplies.Diagnosis: Wheezing, dyspnea. Disp: 1 Each Rfl: 0 COMPOUNDED PRESCRIPTION Adult diaper: Depends: Size: [id number]: N39.46 Mixed incontinence urge and stress (female)ICD-10: N39.0 Recurrent UTI (urinary tract infection). Disp: 14 Each Rfl: 5 Lancets lancets Test blood sugar(s) one times daily. Dx: Type 2 DM - Controlled E11.9 Insulin: No Disp: 100 Each Rfl: 3 DULoxetine (CYMBALTA) 60 mg capsule Take 120 mg by mouth once daily. Disp: Rfl: LORazepam (ATIVAN) 0.5 mg tab Take by mouth twice daily. Disp: Rfl: predniSONE (DELTASONE) 10 mg tablet TAKE 1 TABLET BY MOUTH ONCE DAILY. Disp: 30 tablet Rfl: 5 COMPOUNDED PRESCRIPTION Powerstep orthotics(L30.9) Dermatitis (primary encounter diagnosis)(72.2) Plantar fasciitis, bilatera(E11.49) Other diabetic neurological complication associated with type 2 diabetes mellitus (HCC) Disp: 1 Device Rfl: 0 COMPOUNDED PRESCRIPTION Physical therapy ordered for her for a home modification evaluation to evaluate need for lift chair or other DME that will assist patient in home and promote safety. Disp: 1 Each Rfl: 0 BUSPIRONE HCL (BUSPAR ORAL) Take 30 mg by mouth twice daily. Disp: Rfl: No current facility-administered medications for this visit. SOCIAL HISTORY: Social History Marital status: Single Spouse name: Years of education: Number of children: 2 Occupational History Occupation Employer Comment [employer] Currently on Disab* Social History Main Topics Smoking status: Current Every Day Smoker Packs/day: 1.00 Years: 32.00 Types: Cigarettes Start date: 12/28/1984 Smokeless tobacco: Never Used Alcohol use: No Drug use: No Sexual activity: Not Currently PAST MEDICAL HISTORY: PAST MEDICAL HISTORY Diagnosis Date - Asthma with exacerbation - Chronic back pain - Chronic bronchitis ([facility]) 06/[address] Ponce - Chronic gastritis egd 02/07/14 - Depression [facility] - Dyslipidemia elevated TG, low HDL - H. pylori infection 06/2013 - Hypothyroidism - Impaired fasting glucose 06/2013 - Leukocytosis - Mitral valve disorders(424.0) MILD PROLAPSE NO REGUGITATION - Neuropathy ([facility]) b/l feet - NIMESH (obstructive sleep apnea) - Osteoarthritis of both knees 08/2013 - Psoriatic arthritis ([facility]) Dr. Rebecca Burgess - Rheumatoid arthritis ([facility]) - RLL pneumonia ([facility]) 04/19/13 - Tobacco use disorder - Unspecified asthma(493.90) - Unspecified essential hypertension Essential hypertension - Viral pneumonia, unspecified Pneumonia PAST SURGICAL HISTORY: PAST SURGICAL HISTORY Procedure Laterality Date - CHOLECYSTECTOMY 1995 lap - COLONOSCOP W/ OR W/O BRSH SPEC 02/07/2014 Colonoscopy - DOPPLER ECHO HEART,COMPLETE 09/02/05 EF= 65% - EGD W/O OR W/BRUSH/WASH 02/07/2014 EGD - GASTRIC BYPASS HX 1986 - LEFT HEART CATH,PERCUTANEOUS 12/02/05 NORMAL - LUMBAR SPINE FUSION COMBINED 1992 X6 FAMILY HISTORY: FAMILY HISTORY Problem Relation Age of Onset - Hypertension Mother - Cancer Father lung 70 - Stroke Maternal Grandfather 81 - Breast Cancer Maternal Aunt All histories reviewed on this date 04/20/2018: Yes REVIEW OF SYSTEMS: CONSTITUTIONAL: fever EYES: Negative for redness, blurry vision, double vision or loss of vision EAR, NOSE AND THROAT: DENIES HAVING: Dysphagia CARDIOVASCULAR: Negative for chest pain. RESPIRATORY: Wheezing GI: No nausea, vomiting, or diarrhea MUSCULOSKELETAL: denies back pain or muscular weakness SKIN: Negative for lesions, rash, and itching PSYCH: Negative for sleep disturbance, mood disorder and recent psychosocial stressors. HEMATOLOGY/LYMPHOLOGY Negative for prolonged bleeding, bruising easily or swollen nodes ENDOCRINE: +DM All other systems reviewed and are negative other than HPI. PHYSICAL EXAM: constitutional: overweight cardiovascular: normal femoral pulses to palpate respiratory: +expiratory wheezing in all batista bilaterally gi: abdomen soft, non-tender without masses, hernia or organomegaly gu: bladder: not palpable, no tenderness. skin: no rashes or bruises noted. Neck: Supple, no adenopathy Extremities: Extremities normal. No deformities, edema, or skin discoloration. Good capillary refill. Lymphatic: No palpable lymph nodes. Neuro: Gait normal. Sensation grossly intact. RADIOLOGY REPORTS REVIEWED: Yes LAB RESULTS REVIEWED: Yes Component Latest Ref Rng AND Units 04/20/2018 GLUCOSE UA (POCT) Negative mg/dL >=1000 (A) BILIRUBIN UA (POCT) Negative Small (A) KETONE UA (POCT) Negative mg/dL Trace SPECIFIC GRAVITY UA (POCT) 1.005 - 1.030 >=1.030 HEMOGLOBIN/BLOOD UA (POCT) Negative Negative PH UA (POCT) 4.5 - 8.0 5.0 PROTEIN UA (POCT) Negative mg/dL Trace (A) UROBILINOGEN UA (POCT) Normal E.U./dL 0.2 NITRITE UA (POCT) Negative Negative LEUKOCYTES UA (POCT) Negative Negative COLOR UA (POCT) Dark yellow CLARITY UA (POCT) Cloudy IMAGING STUDIES INDEPENDENTLY REVIEWED: No OLD RECORDS REVIEWED: Yes: Extensive: No ASSESSMENT/PLAN: ASSESSMENT/PLAN: 1. Expiratory wheezing - ICD9: 786.07, ICD10: R06.2 (primary diagnosis) -patient with chills -history of COPD -report called to [facility] ED, Dr. Sommer who is very familiar with the patient, she is being take to [facility] by her scheduled transport, patient refused a wheelchair 2. Uncontrolled type 2 diabetes mellitus without complication, without long-term current use of insulin (HCC) - ICD9: 250.02, ICD10: E11.65 -uncontrolled 3. Glucosuria - ICD9: 791.5, ICD10: R81 ->1000 -uncontrolled 4. Neurogenic bladder - ICD9: 596.54, ICD10: N31.9 -patient reports past nerve damage during spinal surgery -NGB per patient seen by Dr. Porter at [facility], records requested -I will review her urology notes from the outside and discuss with Dr. Gongora to see if she is a candidate for a SPT, which she is requesting. Marichuy Lira, TANIKA.MAP DRAFTER Disease Specificity: Acuity: Acute Severity: Moderate, 0/10 Anatomic Site: lungs Underlying Condition/Causal Agent: COPD, possible pneumonia Associated Conditions/Manifestations: N/A Patient is instructed to schedule a follow up in 3 months. Marichuy Lira APRN.MAP DRAFTER Referring Provider: MIGNON WALSH [[id number]] Allergies As of Date: 04/20/2018 Noted Allergy Reaction MACROBID (NITROFURANTOIN MONOHYD/*11/07/2015 9 - Itching Comments: Hives and rash MRI DYE (CONTRAST DYE) 08/02/2009 11 - Vomiting Comments: constant vomiting, swell up, NEEDS premedication but still gets sick, not as bad ct scan dye [Other] 08/02/2009 11 - Vomiting Comments: Vomiting, swelling of face: Needs premedication and gets sick, but not as bad FENTANYL 05/09/2013 5 - Intolerance Comments: Feels like throat is closing METFORMIN 08/20/2015 8 - GI Upset Comments: Has tried immediate release and XR formulation and unable to tolerate either SULFA (SULFONAMIDE ANTIBIOTICS) 05/09/2013 9 - Itching Date Reviewed: 04/20/2018 Reviewed by: Jorge SalvadorRn) KEVAN Tillman - Fully Assessed Reason for Visit: New Patient Evaluation [154] Cmt: UTI Primary Visit Diagnosis:Expiratory wheezing [R06.2] Other Visit Diagnoses:Screening for genitourinary condition [Z13.89] Uncontrolled type 2 diabetes mellitus without complication, without long-term current use of insulin (HCC) [E11.65] Glucosuria [R81] Neurogenic bladder [N31.9] Order(s):UA DIP, URINE (POC) [[id number]] Order #: [id number] UA DIP, URINE (POC) [[id number]] Order #: [id number] #:[id number] Prescriptions as of 04/20/2018 Sig: LEVOTHYROXINE 150 MCG TABLET TAKE 1 TABLET BY MOUTH DAILY * ABATACEPT 125 MG/ML SUBCUTANE* Inject 125 mg subcutaneously * GABAPENTIN 800 MG TABLET TAKE 2 TABLETS BY MOUTH EVERY* CYCLOBENZAPRINE 5 MG TABLET TAKE 2 TABLETS BY MOUTH EVERY* HYDROXYCHLOROQUINE 200 MG TAB* Take 1.5 tablets by mouth onc* PANTOPRAZOLE 40 MG TABLET,DEL* TAKE 1 TABLET BY MOUTH DAILY ATORVASTATIN 20 MG TABLET TAKE 1 TABLET BY MOUTH AT BED* GLIMEPIRIDE 4 MG TABLET TAKE 1 TABLET BY MOUTH DAILY COMPOUNDED PRESCRIPTION NEBULIZER FOR HOME USE. DX: * ALBUTEROL SULFATE 2.5 MG/3 ML* Use 3 mL via nebulizer every * IBUPROFEN 800 MG TABLET Take 1 tablet by mouth every * BENZONATATE 100 MG CAPSULE Take 1 capsule by mouth three* BUDESONIDE 180 MCG/ACTUATION * Inhale 2 Puffs as instructed * ALBUTEROL SULFATE HFA 90 MCG/* Inhale 2 Puffs as instructed * COMPOUNDED PRESCRIPTION 1 Each every 4 hours as neede* BLOOD SUGAR DIAGNOSTIC STRIPS Test blood sugar(s) 1- 2 time* LANCETS Test blood sugar(s) 1- 2 times* BLOOD-GLUCOSE METER KIT Glucose Meter of Choice - Kit* JARDIANCE 10 MG TABLET TAKE 1 TABLET BY MOUTH EVERY * LISINOPRIL 10 MG TABLET TAKE 1 TABLET BY MOUTH DAILY COMPOUNDED PRESCRIPTION Please provide patient with n* COMPOUNDED PRESCRIPTION Adult diaper: Depends: Size:* LANCETS Test blood sugar(s) one times* DULOXETINE 60 MG CAPSULE,SERG* Take 120 mg by mouth once tyrell* LORAZEPAM 0.5 MG TABLET Take by mouth twice daily. PREDNISONE 10 MG TABLET TAKE 1 TABLET BY MOUTH ONCE D* COMPOUNDED PRESCRIPTION Powerstep orthotics (L30.9* COMPOUNDED PRESCRIPTION Physical therapy ordered for * BUSPAR ORAL Take 30 mg by mouth twice tyrell* Medication notes this encounter BENZONATATE 100 MG CAPSULE >> Jorge Tillman RN, RN 04/20/2018 2:00 PM >> JORGE TILLMAN RN WedApr 20, 2018 2:00 PM Not taking. LORAZEPAM 0.5 MG TABLET >> Jorge Tillman RN, RN 04/20/2018 2:02 PM >> JORGE TILLMAN RN WedApr 20, 2018 2:02 PM Not taking. PREDNISONE 10 MG TABLET >> Jorge Tillman RN, RN 04/20/2018 2:02 PM >> JORGE TILLMAN RN WedApr 20, 2018 2:02 PM Not taking. COMPOUNDED PRESCRIPTION >> Jorge Tillman RN, RN 04/20/2018 2:01 PM >> JORGE TILLMAN RN WedApr 20, 2018 2:01 PM States not using. BUSPAR ORAL >> Jorge Tillman RN, RN 04/20/2018 2:01 PM >> JORGE TILLMAN RN WedApr 20, 2018 2:01 PM States not doing PT. Problem List As Of Date 04/20/2018 Noted Resolved Shortness of breath [R06.02] 07/01/2015 Asthma with exacerbation [J45.901] 07/01/2015 Viral pneumonia, unspecified [J12.9] 07/01/2015 More... MITRAL VALVE DISORDER [I05.9] Tobacco use disorder [F17.200] 07/01/2015 Essential hypertension [I10] More... MIXED HYPERLIPIDEMIA [E78.2] More... COUGH [R05] INVALID FOR* INCONTINENCE W/O SENSORY AWARENESS [N39.42] INVALID FOR*07/01/2015 URGE AND STRESS MIXED INCONTINENCE [N39.46] INVALID FOR* Morbid obesity with BMI of 45.0-49.9, adult [E6*INVALID FOR*07/01/2015 Tobacco abuse [Z72.0] INVALID FOR* Hyperlipidemia [E78.5] INVALID FOR*04/10/2016 Fibromyalgia [M79.7] INVALID FOR* Hypothyroidism [E03.9] INVALID FOR*07/01/2015 Asthma with COPD (HCC) [J44.9] INVALID FOR*07/01/2015 RLL pneumonia [J18.1] INVALID FOR*04/10/2016 GERD (gastroesophageal reflux disease) [K21.9] INVALID FOR* H. 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*INVALID FOR* NIMESH (obstructive sleep apnea) [G47.33] INVALID FOR* Asthma [J45.909] INVALID FOR* Seronegative rheumatoid arthritis (HCC) [M06.00]INVALID FOR* Controlled substance agreement signed [Z79.899] INVALID FOR* Bladder spasms [N32.89] INVALID FOR* Uncontrolled type 2 diabetes mellitus without c*INVALID FOR* Recurrent UTI [N39.0] INVALID FOR* Long-term use of immunosuppressant medication [*INVALID FOR* Disposition: Return in about 1 month (around 05/21/2018), or if symptoms worsen or fail to improve, for NGB. Follow-up and Disposition History Recorded Encounter Status:Closed by MARICHUY LIRA CNP on 04/20/18 CNCO Observed: 04/19/2018 Status: COMPLETED Source: ONYX 12:00 AM [facility] REPOSITORY Letter Text [facility] [address] [facility]. [place], [place] [address] 04/19/2018 Katherin Suero [id number] [address] [facility] [address] Dear Ms. Suero: I noted on my schedule today that we had an appointment. I am sorry I missed you. I realize that there are many distractions and busy schedules. Please call ahead of time, if you are unable to make it. If this was because of a miscommunication, please ensure that you speak with one of the schedulers over the phone/in person after each appointment (this is the safest way, since we can't guarantee that you will receive your appointments via mail). If you need to cancel, please call us in advance. Thanks for your understanding, and hope to see you again soon. Sincerely, Dr. Mignon Walsh MD CBC AND DIFFERENTIAL Collected: 04/11/2018 Status: F Source: ONYX 12:30 PM [facility] REPOSITORY TYPE CODE TESTS RESULT OUT OF REFERENCE UNITS RANGE LAB WBC 3.70-11.00 k/uL WBC 10.11 LAB RBC 3.90-5.20 m/uL RBC 5.10 LAB HGB 11.5-15.5 g/dL Hemoglobin 13.7 LAB HCT 36.0-46.0 % Hematocrit 45.1 LAB MCV 80.0-100.0 fL MCV 88.4 LAB MCH 26.0-34.0 pG MCH 26.9 LAB MCHC 30.5-36.0 g/dL Low MCHC 30.4 LAB RDWCV 11.5-15.0 % RDW-CV High 17.6 LAB PLTCT 150-400 k/uL Platelet Count 343 LAB MPV 9.0-12.7 fL MPV 9.9 LAB ANEUT % Neut% 73.4 LAB AANEUT 1.45-7.50 k/uL Abs Neut 7.42 LAB ALYMP % Lymph% 19.0 LAB AALYMP 1.00-4.00 k/uL Abs Lymph 1.92 LAB AMONO % [place]% 5.1 LAB AAMONO <0.87 k/uL Abs [place] 0.52 LAB AEOS % Eosin% 1.7 LAB AAEOS <0.46 k/uL Abs Eosin 0.17 LAB ABASO % Baso% 0.8 LAB AABASO <0.11 k/uL Abs Baso 0.08 LAB AUNRBC 0 /100 WBC NRBCs 0.0 LAB ABNRBC <0.01 k/uL Absolute nRBC <0.01 LAB DTYP DTYPE Auto Diff Performed By: #### CBCDIF, ALB, ALT, AST, CRET1 #### [facility] [place] [address] [address] ALBUMIN Collected: 04/11/2018 Status: F Source: ONYX 12:30 PM [facility] REPOSITORY TYPE CODE TESTS RESULT OUT OF REFERENCE UNITS RANGE LAB ALB 3.9-4.9 g/dL Albumin 4.2 Performed By: #### CBCDIF, ALB, ALT, AST, CRET1 #### [facility] [employer] [address] [place] [address] ALT Collected: 04/11/2018 Status: F Source: ONYX 12:30 PM [facility] REPOSITORY TYPE CODE TESTS RESULT OUT OF RANGE REFERENCE UNITS LAB ALT 7-38 U/L ALT 10 Performed By: #### CBCDIF, ALB, ALT, AST, CRET1 #### [facility] [address] AST Collected: 04/11/2018 Status: F Source: ONYX 12:30 PM [facility] REPOSITORY TYPE CODE TESTS RESULT OUT OF RANGE REFERENCE UNITS LAB AST 13-35 U/L AST 13 Performed By: #### CBCDIF, ALB, ALT, AST, CRET1 #### [facility] [address] [place] [address] CREATININE Collected: 04/11/2018 Status: F Source: ONYX 12:30 PM [facility] REPOSITORY TYPE CODE TESTS RESULT OUT OF REFERENCE UNITS RANGE LAB CRET 0.58-0.96 mg/dL Creatinine 0.82 LAB GFRAA eGFR- >60 Amer. LAB GFRNAA . eGFR-All Other Races >60 Result Comment: eGFR (Estimated GFR) Units of measure: mL/min/1.73 meters squared eGFR is derived from the reexpressed MDRD Study equation using the following parameters: serum creatinine, age, gender and race. The creatinine assay has been calibrated to be traceable to IDMS. An eGFR <60 mL/min/1.73m2 for >3 months is consistent with chronic kidney disease. Refer to KDOQI guidelines for clinical interpretation. In patients with unstable renal function, e.g. those with acute kidney injury, the eGFR may not accurately reflect actual GFR. Performed By: #### CBCDIF, ALB, ALT, AST, CRET1 #### [facility] [address] [place] [id number] COMP METABOLIC PANEL Collected: 04/11/2018 Status: F Source: ONYX 12:30 PM [facility] REPOSITORY TYPE CODE TESTS RESULT OUT OF REFERENCE UNITS RANGE LAB TP 6.3-8.0 g/dL Protein, Total 7.5 LAB ALB 3.9-4.9 g/dL Albumin 4.1 LAB CA 8.5-10.2 mg/dL Calcium, Total 9.5 LAB TBIL 0.2-1.3 mg/dL Bilirubin, Total 0.3 LAB ALKP 34-123 U/L Alkaline Phosphatase 53 LAB AST 13-35 U/L AST 15 LAB GLU 74-99 mg/dL Glucose 85 Result Comment: The [place] Diabetes [employer] (ADA) provides guidance for cutoff values for fasting glucose and random glucose. The ADA defines fasting as no caloric intake for at least 8 hours. Fas ting plasma glucose results between 100 to 125 mg/dL indicate increased risk for diabetes (prediabetes). Fasting plasma glucose results greater than or equal to 126 mg/dL meet the criteria for diagnosis of diabetes. In the absence of unequivocal hyperglycemia, results should be confirmed by repeat testing. In a patient with classic symptoms of hyperglycemia or hyperglycemic crisis, random plasma glucose results greater than or equal to 200 mg/dL meet the criteria for diagnosis of diabetes. Reference: Standards of Medical Care in Diabetes 2016, [employer] [place] [employer]. Diabetes Care. 2016.39(Suppl 1). LAB BUN 7-21 mg/dL BUN 12 LAB CRET 0.58-0.96 mg/dL Creatinine 0.81 LAB NA 136-144 mmol/L Sodium 139 LAB K 3.7-5.1 mmol/L Potassium 4.0 LAB CL 97-105 mmol/L Chloride 101 LAB CO2 22-30 mmol/L CO2 23 LAB AGAP 9-18 mmol/L Anion Gap 15 LAB ALT 7-38 U/L ALT 9 LAB GFRAA eGFR- Amer. >60 LAB GFRNAA . eGFR-All Other Races >60 Result Comment: eGFR (Estimated GFR) Units of measure: mL/min/1.73 meters squared eGFR is derived from the reexpressed MDRD Study equation using the following parameters: serum creatinine, age, gender and race. The creatinine assay has been calibrated to be traceable to IDMS. An eGFR <60 mL/min/1.73m2 for >3 months is consistent with chronic kidney disease. Refer to KDOQI guidelines for clinical interpretation. In patients with unstable renal function, e.g. those with acute kidney injury, the eGFR may not accurately reflect actual GFR. Performed By: #### CMP, TSH, T4FTI, HBA1C #### [facility] [address] [address] TSH Collected: 04/11/2018 Status: F Source: ONYX 12:30 PM [facility] REPOSITORY TYPE CODE TESTS RESULT OUT OF RANGE REFERENCE UNITS LAB TSH 0.400-5.500 uU/mL TSH 1.400 Performed By: #### CMP, TSH, T4FTI, HBA1C #### [facility] [address] [place], [place] [address] T4/FTI Collected: 04/11/2018 Status: F Source: ONYX 12:30 PM [facility] REPOSITORY TYPE CODE TESTS RESULT OUT OF REFERENCE UNITS RANGE LAB T4 5.5-10.2 ug/dL T4 8.5 LAB T4U 0.91-1.19 T4 Uptake 0.96 LAB FTI 5.3-10.8 ug/dL FTI 8.9 Performed By: #### CMP, TSH, T4FTI, HBA1C #### [facility] [address] [place], [place] [address] HEMOGLOBIN A1C Collected: 04/11/2018 Status: F Source: ONYX 12:30 PM [facility] REPOSITORY TYPE CODE TESTS RESULT OUT OF REFERENCE UNITS RANGE LAB HGBA1C 4.3-5.6 % High Hemoglobin A1c 6.8 Result Comment: [place] [employer] guidelines indicate that patients with HgbA1c in the range 5.7-6.4% are at increased risk for development of diabetes, and intervention by lifestyle modification may be beneficial. HgbA1c greater or equal to 6.5% is considered diagnostic of diabetes. LAB HBA0 mg/dL Est. Average Glucose 148 Result Comment: eAG: (Estimated average glucose) is a calculated value from HgbA1c and is public service representative of the average blood glucose level in the last 2-3 month period. Performed By: #### CMP, TSH, T4FTI, HBA1C #### [facility] [address] [place], [place] [address] ALBUMIN/CREAT RATIO Collected: 04/11/2018 Status: F Source: ONYX 12:30 PM [facility] REPOSITORY TYPE CODE TESTS RESULT OUT OF REFERENCE UNITS RANGE LAB UCRR 20-300 mg/dL Creatinine,Ur 143.2 ine,Ran LAB UALBR 0.0-23.0 mg/L Albumin Urine 14.7 Random LAB UALBCR 0-30 mg/g Albumin/Creat 10 Ratio Result Comment: 30 to 300 mg/g indicates an increased risk for diabetic nephropathy. Greater than 300 mg/g is consistent with clinical nephropathy. (Am J Kidney Disease 1994, 25:107) Performed By: #### UACR #### [facility] [address] [place], [place] [address] CNPTOUTREACH Observed: 04/05/2018 Status: COMPLETED Source: ONYX 12:00 AM [facility] REPOSITORY Patient Outreach (FAMPST) KATHERIN SUERO ([id number]) 1965 F CHT Date Time Provider Department 04/05/18 MIGNON WALSH During your visit today, we recorded the following information about you: Allergies As of Date: 04/05/2018 Noted Allergy Reaction MACROBID (NITROFURANTOIN MONOHYD/*11/07/2015 9 - Itching Comments: Hives and rash MRI DYE (CONTRAST DYE) 08/02/2009 11 - Vomiting Comments: constant vomiting, swell up, NEEDS premedication but still gets sick, not as bad ct scan dye [Other] 08/02/2009 11 - Vomiting Comments: Vomiting, swelling of face: Needs premedication and gets sick, but not as bad FENTANYL 05/09/2013 5 - Intolerance Comments: Feels like throat is closing METFORMIN 08/20/2015 8 - GI Upset Comments: Has tried immediate release and XR formulation and unable to tolerate either SULFA (SULFONAMIDE ANTIBIOTICS) 05/09/2013 9 - Itching Date Reviewed: 03/09/2018 Reviewed by: Chase Ramírez - Fully Assessed Visit Diagnosis:Medication management [Z79.899] Order(s):ALBUMIN/CREAT RATIO RND UR [SQUACR] Order #: [id number] FUTURE Problem List As Of Date 04/05/2018 Noted Resolved Shortness of breath [R06.02] 07/01/2015 Asthma with exacerbation [J45.901] 07/01/2015 Viral pneumonia, unspecified [J12.9] 07/01/2015 More... MITRAL VALVE DISORDER [I05.9] Tobacco use disorder [F17.200] 07/01/2015 Essential hypertension [I10] More... MIXED HYPERLIPIDEMIA [E78.2] More... COUGH [R05] INVALID FOR* INCONTINENCE W/O SENSORY AWARENESS [N39.42] INVALID FOR*07/01/2015 URGE AND STRESS MIXED INCONTINENCE [N39.46] INVALID FOR* Morbid obesity with BMI of 45.0-49.9, adult [E6*INVALID FOR*07/01/2015 Tobacco abuse [Z72.0] INVALID FOR* Hyperlipidemia [E78.5] INVALID FOR*04/10/2016 Fibromyalgia [M79.7] INVALID FOR* Hypothyroidism [E03.9] INVALID FOR*07/01/2015 Asthma with COPD (HCC) [J44.9] INVALID FOR*07/01/2015 RLL pneumonia [J18.1] INVALID FOR*04/10/2016 GERD (gastroesophageal reflux disease) [K21.9] INVALID FOR* H. 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*INVALID FOR* NIMESH (obstructive sleep apnea) [G47.33] INVALID FOR* Asthma [J45.909] INVALID FOR* Seronegative rheumatoid arthritis ([facility]) [M06.00]INVALID FOR* Controlled substance agreement signed [Z79.899] INVALID FOR* Bladder spasms [N32.89] INVALID FOR* Uncontrolled type 2 diabetes mellitus without c*INVALID FOR* Recurrent UTI [N39.0] INVALID FOR* Long-term use of immunosuppressant medication [*INVALID FOR* Encounter Status:Closed by CRISTIN RAM on 04/20/18 EMERGENCY DEPARTMENT Observed: 03/15/2018 Status: F Source: SARAH ANN SUMMARY 12:19 AM [facility] Medical Records Department [address] [place] [id number] Emergency Department Summary 03/14/18 2217 MR#: [id number] Acct: [id number] Name: KATHERIN SUREO Rep #: [id number] : 1965 52 From: Daniel Spencer MD PCP: Mignon Walsh MD Status: DEP ER - ER Visit Summary Date of Service: 03/14/18 Chief Complaint: Left arm injury History of Present Illness: The patient is a 52 F presenting for evaluation secondary to a left arm injury. Patient reports that she suffered a mechanical fall on an outstretched left arm. She denies hitting her head or loss of consciousness. She states that there is pain associated with movement palpation. Patient also states that she is having some wheezing from her COPD. Physical Examination: Vital signs are within normal limits other than a heart rate of 121. Obese female no acute distress. Head normocephalic atraumatic. Heart minimally tachycardic and regular. Chest nontender, no evidence of abnormal chest excursion. Wheezing bilaterally with no respiratory distress noted. Abdomen soft nontender. Extremity exam shows tenderness to palpation of the forearm wrist and hand with normal range of motion of the fingers normal capillary refill normal pulses. Patient does not have focal tenderness over the anatomical snuffbox. Test Results: Wrist, forearm, hand, and chest x-rays are negative per radiology my personal review Emergency Department Course and Treatment: Patient presented for evaluation secondary to a fall. She was significantly wheezy she was given a DuoNeb in the emergency department and maintain normal oxygenation. Patient was given Toradol and Tylenol for treatment of pain. Radiographs were found to be negative. Patient was given a wrist splint and discharged with a course of Dolobid. Disposition: Discharge Impression: Left wrist sprain This note was generated with Tastemade dictation software. It may contain incorrect words, spelling, and punctuation that were not noted in review of the chart prior to signing ED Disposition - Plan for ED Patient: Disposition: Home or Assisted Living Chief Complaint: Upper Extremity Injury Diagnosis: Left wrist sprain Instructions: ED Sprain Wrist Prescriptions: Diflunisal [Dolobid] 500 mg PO BID #28 tab Referrals: Mignon Walsh MD [Primary Care Provider] - 5-7 Days What to do if you have Problems For any increased pain, shortness of breath, bleeding, nausea or vomiting, chest pain, or any unexpected problems, contact your Primary Care Provider. Call [facility] ([phone]) or report to the closest Emergency Room. Call 911 if necessary. 03/15/18 0019 <Electronically signed by Daniel Spencer MD> Date Daniel Spencer MD Cosigner Signature (If Indicated): Date CC: Mignon Walsh MD CHEST 1 VIEW Observed: 03/14/2018 Status: F Source: MOISES (PORTABLE) 9:03 PM [facility] REPOSIT[facility] Imaging Services [address] [place] [address] Chest 1 View (Portable) MR#: [id number] Acct: [id number] Name: KATHERIN SUERO Rep #: [id number] : 1965 F 52 From: Vidal Richardson MD PCP: Mignon Walsh MD Status: REG ER Study: Chest 1 View (Portable) Date of Exam: 03/14/18 Exam# [id number] Ordering Dr: Daniel Spencer MD STUDY: X-RAY CHEST REASON FOR EXAM: Female, 52 years old. Fall. Rib pain. TECHNIQUE: Single AP portable view of the chest. COMPARISON: None. FINDINGS: There is hyperinflation of the lungs consistent with chronic obstructive lung disease (COPD). No infiltrates. No effusions. There is no demonstrated pleural abnormality. Normal size heart. Normal mediastinum and tony. Normal visualized pulmonary arteries. Normal visualized aortic arch and descending thoracic aorta. Normal visualized thoracic spine. Normal visualized ribs, clavicles, and shoulders. There is no demonstrated abnormality of the visualized soft tissue structures of the upper abdomen. RAD/Chest 1 View (Portable) IMPRESSION: There are findings consistent with COPD. There is no evidence of acute chest disease. Electronically Signed: Vidal Richardson MD at 21:56 EST , Service support , CC: Mignon Walsh MD; Daniel Spencer Mixer Pigment: Signed HAND MIN 3 VIEWS Observed: 03/14/2018 Status: F Source: MOISES 8:38 PM [facility] REPOSIT[facility] Imaging Services [address] [place] [address] Hand Min 3 Views MR#: [id number] Acct: [id number] Name: KATHERIN SUERO Rep #: [id number] : 1965 F 52 From: Vidal Richardson MD PCP: Mignon Walsh MD Status: REG ER Study: Hand Min 3 Views Date of Exam: 03/14/18 Exam# [id number] Ordering Dr: Daniel Spencer MD STUDY: X-RAY - LEFT HAND REASON FOR EXAM: Female, 52 years old. Fall. TECHNIQUE: 3 view(s) of the hand. COMPARISON: None. FINDINGS: Normal radiocarpal articulation. Normal distal radioulnar joint. Normal visualized carpal bones. Normal carpal articulations Normal carpometacarpal articulation of the thumb. Normal second through fifth carpometacarpal joints. Normal metacarpi. Normal metacarpophalangeal joint of the thumb. Normal interphalangeal joint of the thumb. Normal proximal and distal phalanges of the thumb. Normal metacarpophalangeal joints of the second through fifth fingers. Normal proximal and distal interphalangeal joints of the second through fifth fingers. Normal phalanges of the second through fifth fingers. The soft tissue structures are unremarkable. RAD/Hand Min 3 Views IMPRESSION: Normal x-ray examination of the hand. Electronically Signed: Vidal Richardson MD at 21:51 EST , Service support , CC: Mignon Walsh MD; Daniel Spencer Mixer Pigment: Signed WRIST MIN 3 VIEWS Observed: 03/14/2018 Status: F Source: [place] 8:38 PM [facility] [place] [facility] Imaging Services [address] [place] [address] Wrist min 3 Views MR#: [id number] Acct: [id number] Name: KATHERIN SUERO Rep #: [id number] : 1965 F 52 From: Vidal Richardson MD PCP: Mignon Walsh MD Status: REG ER Study: Wrist min 3 Views Date of Exam: 03/14/18 Exam# [id number] Ordering Dr: Daniel Spencer MD STUDY: X-RAY - LEFT WRIST REASON FOR EXAM: Female, 52 years old. Left wrist pain. TECHNIQUE: 3 view(s) of the wrist were obtained. COMPARISON: None. FINDINGS: Normal visualized distal radius and ulna. Normal radiocarpal articulation. Normal distal radioulnar articulation. Normal carpal bones. Normal carpal articulations. Normal carpometacarpal articulation of the thumb. Normal second through fifth carpometacarpal articulations. Normal visualized metacarpal bones. The soft tissue structures are unremarkable. There is no demonstrated acute fracture. RAD/Wrist min 3 Views IMPRESSION: Normal x-ray examination of the wrist. Electronically Signed: Vidal Richardson MD at 21:55 EST , Service support , CC: Mignon Walsh MD; Daniel Spencer Mixer Pigment: Signed FOREARM 2 VIEWS Observed: 03/14/2018 Status: F Source: [place] 8:38 PM [facility] [place] [facility] Imaging Services [address] [place] [address] Forearm 2 Views MR#: [id number] Acct: [id number] Name: KATHERIN SUERO Rep #: [id number] : 1965 F 52 From: Vidal Richardson MD PCP: Mignon Walsh MD Status: REG ER Study: Forearm 2 Views Date of Exam: 03/14/18 Exam# [id number] Ordering Dr: Daniel Spencer MD STUDY: X-RAY - LEFT RADIUS AND ULNA REASON FOR EXAM: Female, 52 years old. Fall. Left arm pain. TECHNIQUE: 2 view(s) of the forearm. COMPARISON: None. FINDINGS: There is no demonstrated soft tissue swelling. Normal visualized radius. Normal visualized ulna. There is no demonstrated acute fracture. RAD/Forearm 2 Views IMPRESSION: Normal x-ray examination of the radius and ulna. Electronically Signed: Vidal Richardson MD at 21:57 EST , Service support , CC: Mignon Walsh MD; Daniel Spencer Mixer Pigment: Signed PROGRESS Observed: 03/09/2018 Status: COMPLETED Source: ONYX 2:10 PM [facility] REPOSITORY HNO ID: [id number] Author: Chase Ramírez Service: (none) Author Type: Nurse Practitioner Type: Progress Notes Filed: 03/09/2018 4:38 PM Note Text: Follow-up of joint pain HPI: - Has had prior diagnosis of RA. Initially on plaquenil, stopped due to GI upset. On simponi but then switched to humira. Had been on methotrexate x3 yrs and humira x3 yrs at same time, stopped 6 months prior to initial September visit due to insurance issues. Symptoms were 70% improved on immunosuppression as compared to initial visit. - For 6 years prior to September visit, has had joint pain in MCPs, PIPs, DIPs, and knees. Joint pain improved by 80-90% on steroid courses which were prescribed for lung issues. - In September, established care in [facility] rheumatology. Given improvement with prior immunosuppression, MTX 15mg SC weekly started for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 fL 10.4 Neut% % 62.2 Abs Neut (ANC) 1.45 - 7.50 k/uL 8.65 (H) Lymph% % 28.8 Abs Lymph 1.00 - 4.00 k/uL 4.00 [place]% % 7.0 Abs [place] <0.87 k/uL 0.97 (H) Eosin% % 1.4 Abs Eosin <0.46 k/uL 0.20 Baso% % 0.6 Abs Baso <0.11 k/uL 0.09 Nucleated Reds 0 /100 WBC 0.0 Absolute nRBC <0.01 k/uL <0.01 Diff Type Auto Diff Creatinine 0.58 - 0.96 mg/dL 0.73 eGFR- >60 eGFR-All Other Races . >60 AST 13 - 35 U/L 11 (L) ALT 7 - 38 U/L 12 Albumin 3.9 - 4.9 g/dL 3.9 WSR 0 - 20 mm/hr 21 (H) CRP <0.9 mg/dL 1.4 (H) *Dec outside high WBC, nl Cr, and UTI with pseudomonas *Nov outside high wbc 15 otherwise unremarkable remainder of CBC, Cr, LFTs, STEPHANIE and RF *Mar high WBC 23.9 and high CRP 9.9 (ULN 3) with unremarkable hgb 12.1, platelets, Cr, ALT and AST *June nl Cr *Apr high wbc 13.5 with nl hgb/platelets *Mar nl LFTs *September high ESR 18 and high CRP 2.1 with unremarkable RF, CCP, hep B/C, and quant gold *June outside elevated WBC 12.9, hgb 15.1, p 261 STUDIES: *August x-ray knees- Moderate OA medial compartments *August x-ray feet- mild OA IMPRESSION and PLAN: 1. Likely seronegative RA: With prior diagnosis of RA, symptoms 70% improved on methotrexate and humira in past. Also with 90% improvement on past steroid courses. Was on MTX SC in September for 1-2 months, and then again from August-Dec but stopped due to GI side effects (although joint pain improved). Arava helped but caused significant n/v. Enbrel helped but not enough. -she continues to report joint pain -continue orencia. She was advised to hold Orencia in the future for infections. -Start HCQ 300mg/day. Potential side effects were explained, including GI upset, headache, and retinal toxicity leading to blindness. Advised that routine ophthalmology follow-up will be required to monitor for potential toxicity at baseline (ie within 2-3 months of starting) and at least annually thereafter. Patient states she will schedule this with an outside eye doctor. I asked that she have the results faxed to our office Literature about Plaquenil was provided for review. -continue prednisone 10 mg daily per pcp. She was advised to avoid nsaids while taking steroids. -will give depo medrol 60mg IM x1 today - toradol was not available -will check labs today 2. 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 PDMP website checked and validated. All prescriptions have been APPROPRIATELY filled. No suspicious activity was identified. 03/09/2018 by Chase Ramírez APRN.MAP DRAFTER -I advised that she see pain management. 3. Knee OA: - Consider future steroid injection as needed 4. Bone health -will discuss recommendations for calcium and vit d at next visit -terminologist steroid use -will check BMD 5. High WBC: Evaluated by hematology - Continue monitoring 6. General health maintenance: - Received flu shot in 11/2017 - Received pneumonia vaccination in - Advised to continue follow-up with PCP for routine health maintenance and malignancy screening More than half of todays over 40 minute [id number]-fzey office visit was spent in counselling/coordination of care Follow-up in 3 months. Patient was instructed to call if any new or worsening symptoms. Chase Ramírez CNP Referring Provider: SELF [[id number]] Allergies As of Date: 03/09/2018 Noted Allergy Reaction MACROBID (NITROFURANTOIN MONOHYD/*11/07/2015 9 - Itching Comments: Hives and rash MRI DYE (CONTRAST DYE) 08/02/2009 11 - Vomiting Comments: constant vomiting, swell up, NEEDS premedication but still gets sick, not as bad ct scan dye [Other] 08/02/2009 11 - Vomiting Comments: Vomiting, swelling of face: Needs premedication and gets sick, but not as bad FENTANYL 05/09/2013 5 - Intolerance Comments: Feels like throat is closing METFORMIN 08/20/2015 8 - GI Upset Comments: Has tried immediate release and XR formulation and unable to tolerate either SULFA (SULFONAMIDE ANTIBIOTICS) 05/09/2013 9 - Itching Date Reviewed: 03/09/2018 Reviewed by: Chase Ramírez - Fully Assessed Reason for Visit: Established Patient [175] Primary Visit Diagnosis:Seronegative rheumatoid arthritis (HCC) [M06.00] Other Visit Diagnoses:Encounter for long-term (current) use of medications [Z79.899] 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 [Z79.52] Order(s):CBC + DIFF [SQCBCDIF] Order #: [id number] FUTURE AST/SGOT BLD [SQAST] Order #: [id number] FUTURE ALT/SGPT [SQALT] Order #: [id number] FUTURE ALBUMIN BLD [SQALB] Order #: [id number] FUTURE CREATININE BLD [SQCRET] Order #: [id number] FUTURE abatacept (ORENCIA) 125 mg/mL syrgInject 125 mg subcutaneously once each week.Disp: 12 SyringeRfl: 0 gabapentin (NEURONTIN) 800 mg tabletTAKE 2 TABLETS BY MOUTH EVERY MORNING AND TAKE 1 AND 1/2 TABLETS IN THE AFTERNOON AND TAKE 1 TABLET AT BEDTIMEDisp: 135 tabletRfl: 2 cyclobenzaprine (FLEXERIL) 5 mg tabletTAKE 2 TABLETS BY MOUTH EVERY MORNING AND 1 TABLET IN THE AFTERNOON AND 2 TABLETS AT NIGHTDisp: 150 tabletRfl: 2 hydroxychloroquine (PLAQUENIL) 200 mg tabletTake 1.5 tablets by mouth once daily.Disp: 135 tabletRfl: 2 [] methylPREDNISolone acetate 60 mg injection (DEPO-Medrol)Disp: Rfl: DXA-AXIAL SKELETON [[id number]] Order #: [id number] FUTURE Prescriptions as of 03/09/2018 Sig: ABATACEPT 125 MG/ML SUBCUTANE* Inject 125 mg subcutaneously * ALBUTEROL SULFATE 2.5 MG/3 ML* Use 3 mL via nebulizer every * ALBUTEROL SULFATE HFA 90 MCG/* Inhale 2 Puffs as instructed * ATORVASTATIN 20 MG TABLET TAKE 1 TABLET BY MOUTH AT BED* BLOOD SUGAR DIAGNOSTIC STRIPS Test blood sugar(s) 1- 2 time* BLOOD-GLUCOSE METER KIT Glucose Meter of Choice - Kit* BUDESONIDE 180 MCG/ACTUATION * Inhale 2 Puffs as instructed * BUSPAR ORAL Take 30 mg by mouth twice tyrell* COMPOUNDED PRESCRIPTION Physical therapy ordered for * COMPOUNDED PRESCRIPTION Powerstep orthotics (L30.9* COMPOUNDED PRESCRIPTION Adult diaper: Depends: Size:* COMPOUNDED PRESCRIPTION Please provide patient with n* CYCLOBENZAPRINE 5 MG TABLET TAKE 2 TABLETS BY MOUTH EVERY* DULOXETINE 60 MG CAPSULE,SERG* Take 120 mg by mouth once tyrell* GLIMEPIRIDE 4 MG TABLET TAKE 1 TABLET BY MOUTH DAILY IBUPROFEN 800 MG TABLET Take 1 tablet by mouth every * JARDIANCE 10 MG TABLET TAKE 1 TABLET BY MOUTH EVERY * LANCETS Test blood sugar(s) one times* LISINOPRIL 10 MG TABLET TAKE 1 TABLET BY MOUTH DAILY LORAZEPAM 0.5 MG TABLET Take by mouth twice daily. COMPOUNDED PRESCRIPTION 1 Each every 4 hours as neede* COMPOUNDED PRESCRIPTION NEBULIZER FOR HOME USE. DX: * PANTOPRAZOLE 40 MG TABLET,DEL* TAKE 1 TABLET BY MOUTH DAILY X LEVOTHYROXINE 150 MCG TABLET TAKE 1 TABLET BY MOUTH DAILY * BENZONATATE 100 MG CAPSULE Take 1 capsule by mouth three* Patient not taking: Reported on 03/09/2018 GABAPENTIN 800 MG TABLET TAKE 2 TABLETS BY MOUTH EVERY* HYDROXYCHLOROQUINE 200 MG TAB* Take 1.5 tablets by mouth onc* LANCETS Test blood sugar(s) 1- 2 times* PREDNISONE 10 MG TABLET TAKE 1 TABLET BY MOUTH ONCE D* Medication notes this encounter PREDNISONE 10 MG TABLET >> Chelly Gomes Ma 03/09/2018 2:06 PM >> CHELLY GOMES MA Wed Mar 09, 2018 2:06 PM Not taking currently Problem List As Of Date 03/09/2018 Noted Resolved Shortness of breath [R06.02] 07/01/2015 Asthma with exacerbation [J45.901] 07/01/2015 Viral pneumonia, unspecified [J12.9] 07/01/2015 More... MITRAL VALVE DISORDER [I05.9] Tobacco use disorder [F17.200] 07/01/2015 Essential hypertension [I10] More... MIXED HYPERLIPIDEMIA [E78.2] More... COUGH [R05] INVALID FOR* INCONTINENCE W/O SENSORY AWARENESS [N39.42] INVALID FOR*07/01/2015 URGE AND STRESS MIXED INCONTINENCE [N39.46] INVALID FOR* Morbid obesity with BMI of 45.0-49.9, adult [E6*INVALID FOR*07/01/2015 Tobacco abuse [Z72.0] INVALID FOR* Hyperlipidemia [E78.5] INVALID FOR*04/10/2016 Fibromyalgia [M79.7] INVALID FOR* Hypothyroidism [E03.9] INVALID FOR*07/01/2015 Asthma with COPD (HCC) [J44.9] INVALID FOR*07/01/2015 RLL pneumonia [J18.1] INVALID FOR*04/10/2016 GERD (gastroesophageal reflux disease) [K21.9] INVALID FOR* H. 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*INVALID FOR* NIMESH (obstructive sleep apnea) [G47.33] INVALID FOR* Asthma [J45.909] INVALID FOR* Seronegative rheumatoid arthritis (HCC) [M06.00]INVALID FOR* Controlled substance agreement signed [Z79.899] INVALID FOR* Bladder spasms [N32.89] INVALID FOR* Uncontrolled type 2 diabetes mellitus without c*INVALID FOR* Recurrent UTI [N39.0] INVALID FOR* Long-term use of immunosuppressant medication [*INVALID FOR* Other instructions from your clinician: Schedule follow up with Chase Ramírez APRN.CNP in [address] Lorenz in 6 months. Schedule bone density test. Please have labs done today. Schedule plaquenil eye exam within the next 3 months. Please have the results faxed to [phone]. [facility] - LAB FACTS [phone] LAB HOURS: Lab is open Wednesday - 7:30 am - 6 pm, Wednesday 7:30 am to 5 pm, and Wednesday 8 am -12 pm. LAB ORDERS 365 days after they are entered. If your lab orders , you may be required to wait in the lab while they are reinstated. STANDING ORDERS are recurring orders with an expiration date. The interval will indicate how often the test should be completed. FASTING LAB means nothing to eat or drink (except water) 10-12 hours before your blood is drawn. CT MRI IVP If you have one of these radiology exams ordered along with blood work, please complete the blood work at least one day prior to the scheduled exam. [facility] The pharmacy is open Wednesday - Wednesday 8 am - 6 pm. [facility] Radiology is open Wednesday - 7:30 am - 8 pm, Wednesday 7:30 am - 5 pm, and Wednesday 8 am - 12 pm. [facility] WALK-IN SCREENING MAMMOGRAPHY Walk-In mammography screenings are available Wednesday - Wednesday 3 pm - 8 pm, and Wednesday 8 am - 12 pm. No appointment is necessary. A prior doctor's order is not required. [facility] Express Care is open Wednesday - Wednesday 6 am - 9 pm, Wednesday and Wednesday 8 am - 4 pm. No appointment is necessary. [facility] is for patients ages 2 years and older. [facility] Care is open Wednesday - Wednesday 8 am - 8 pm, Wednesday and Wednesday 8 am - 4 pm. No appointment is necessary. [facility] is for patients ages 2 years and older. For [facility] LOCATIONS, HOURS OF OPERATION and CURRENT WAIT TIMES, visit the following link: [email or web address] Prescriptions ordered this encounter Disp Refills Start End ABATACEPT 125 MG/ML SUBCUTANEOUS SYR* 12 S* 0 03/09/2018 Route: SUBCUTANEOUS Sig: Inject 125 mg subcutaneously once each week. GABAPENTIN 800 MG TABLET 135 * 2 03/09/2018 06/09/2018 Sig: TAKE 2 TABLETS BY MOUTH EVERY MORNING AND TAKE 1 AND 1/2 TABLETS IN THE AFTERNOON AND TAKE 1 TABLET AT BEDTIME CYCLOBENZAPRINE 5 MG TABLET 150 * 2 03/09/2018 Sig: TAKE 2 TABLETS BY MOUTH EVERY MORNING AND 1 TABLET IN THE AFTERNOON AND 2 TABLETS AT NIGHT HYDROXYCHLOROQUINE 200 MG TABLET 135 * 2 03/09/2018 Route: ORAL Sig: Take 1.5 tablets by mouth once daily. KETOROLAC 30 MG/ML (1 ML) INJECTION * 1 mL 0 03/09/2018 03/09/2018 Class: In Office Route: INTRAMUSCULA Sig: Inject 30 mg intramuscularly one time only for 1 dose. METHYLPREDNISOLONE ACETATE 80 MG/ML * 03/09/2018 03/09/2018 Route: INTRAMUSCULA Medications Discontinued During This Encounter abatacept (ORENCIA) 125 mg/mL syrg 4 Sy* 0 02/04/2018 03/09/2018 Route: SUBCUTANEOUS Sig: Inject 125 mg subcutaneously once each week. Disc: Reason for discontinue is not on file. cyclobenzaprine (FLEXERIL) 5 mg tabl* 150 * 0 02/08/2018 03/09/2018 Cmt: Maximum Refills Reached Sig: TAKE 2 TABLETS BY MOUTH EVERY MORNING AND 1 TABLET IN THE AFTERNOON AND 2 TABLETS AT NIGHT Disc: Reason for discontinue is not on file. ketorolac (TORADOL) 30 mg/mL (1 mL) * 1 mL 0 08/01/2014 03/09/2018 Class: In Office Route: INTRAMUSCULAR Sig: Inject 30 mg intramuscularly one time only for 1 dose. Disc: Reason for discontinue is not on file. ketorolac (TORADOL) 30 mg/mL (1 mL) * 1 mL 0 03/09/2018 03/09/2018 Class: In Office Route: INTRAMUSCULAR Sig: Inject 30 mg intramuscularly one time only for 1 dose. Disc: Reason for discontinue is not on file. gabapentin (NEURONTIN) 800 mg tablet 150 * 0 02/08/2018 03/09/2018 Cmt: Maximum Refills Reached Sig: TAKE 2 TABLETS BY MOUTH EVERY MORNING AND TAKE 1 TABLET IN THE AFTERNOON AND TAKE 1 TABLET AT BEDTIME Disc: Reason for discontinue is not on file. Disposition: Return in about 3 months (around 06/07/2018). Follow-up and Disposition History Recorded Letter Text Katherin Suero Chase Ramírez CNP Department of Rheumatic and Immunologic Disease [place] [address] Office: [phone] 03/09/2018 Pt. name: Katherin Suero CC #: [id number] MEDICAL EXCUSE Patient was seen for a medical evaluation today. I recommend that she exercise daily, including outdoor exercise. This would be beneficial for her joint pain. Please contact our office if you have any questions or concerns. Sincerely, Chase Ramírez APRN.YOAN (electronically signed to expedite mailing) Encounter Status:Closed by CHASE RAMÍREZ CNP on 03/09/18 XR CHEST 2V FRONTAL/LAT Observed: 02/04/2018 Status: F Source: ONYX 2:22 PM [facility] REPOSITORY * * *Final Report* * * DATE OF EXAM: Feb 04 2018 2:22PM WOX [id number] - XR CHEST 2V FRONTAL/LAT / PROCEDURE REASON: Bacterial pneumonia * * * * Physician Interpretation * * * * EXAMINATION: CHEST RADIOGRAPH (2 VIEW FRONTAL and LATERAL) CLINICAL HISTORY: Bacterial pneumonia MQ: XC2_5 Comparison: 05/12/2017 01/20/2018 RESULTS: 1. Lines, Tubes, and Devices: None 2. Lungs and Pleura: The lungs are clear. No infiltrates, noncalcified nodules or pleural effusions are seen. Pulmonary vascularity is unremarkable. 3. Cardiomediastinal silhouette: Heart size is unchanged. 4. Other: Bony structures unremarkable. IMPRESSION: No acute hand edger: PSCB Transcribe Date/Time: Feb 04 2018 3:57P Dictated by : JULISSA MILLER DO This examination was interpreted and the report reviewed and electronically signed by: JULISSA MILLER DO on Feb 04 2018 3:58PM EST [id number] PROGRESS Observed: 02/04/2018 Status: COMPLETED Source: ONYX 2:08 PM [facility] REPOSITORY HNO ID: [id number] Author: Lianna Hinds Service: (none) Author Type: (none) Type: Progress Notes Filed: 02/04/2018 2:22 PM Note Text: Radiology Service Progress Note PATIENT NAME: Katherin Suero DATE OF SERVICE: February 04, 2018 TIME: 2:08 PM PATIENT IDENTITY VERIFICATION COMPLETED USING TWO (2) METHODS: Patient confirmed name verbally and Date of . PATIENT GENDER DATA: Female. status: : No status: NO. PATIENT RELEVANT IMPLANT DATA REVIEWED: Not Applicable RADIOLOGY DEPARTMENT: General X-ray: Exam(s) Completed: Chest X-Ray PERIPHERAL IV DATA: Not applicable SIGNED BY: Lianna Hinds February 04, 2018 2:08 PM PROGRESS Observed: 02/04/2018 Status: COMPLETED Source: ONYX 1:24 PM [facility] REPOSITORY HNO ID: [id number] Author: Mignon Walsh Service: (none) Author Type: Physician Type: Progress Notes Filed: 02/04/2018 2:10 PM Note Text: Chief Complaint Patient presents with: Cough HPI Katherin Suero is a 52 year old female who presents here today for pneumonia. Pt complaining for having pneumonia and not getting better. She states that she is coughing up phlegm when able, fever, SOB, wheezing, pain on left side chest that goes into the back. States she feels like someone hammered her lung and it hurts when coughing. Has slept 14 hours and feels extremely tired. She has been using Tessalon Perles which pt stated do not help. She was recently prescribed Doxycycline BID and taper dosing of Prednisone since Jan 27, 2018. She has been alternating Tylenol and ibuprofen for the pain. She states that she has not needed to use nebulizer for breathing treatments, but has been using the Pulmicort inhaler and Proventil inhaler. Still smoking daily. Pt has been on 2 rounds of Levaquin 750 mg and now on Doxycycline as well has several courses of Prednisone. Sugars have been running around 300-400 since being sick. Past medical history, appointments, medications, allergies reviewed. Previous Medical History PAST MEDICAL HISTORY Diagnosis Date - Asthma with exacerbation - Chronic back pain - Chronic bronchitis ([facility]) 06/[address] Ponce - Chronic gastritis egd 02/07/14 - Depression Dr. Jameson Psychiatrist, [facility] - Dyslipidemia elevated TG, low HDL - H. pylori infection 06/2013 - Hypothyroidism - Impaired fasting glucose 06/2013 - Leukocytosis - Mitral valve disorders(424.0) MILD PROLAPSE NO REGUGITATION - Neuropathy ([facility]) b/l feet - NIMESH (obstructive sleep apnea) - Osteoarthritis of both knees 08/2013 - Psoriatic arthritis ([facility]) Dr. Rebecca Burgess - Rheumatoid arthritis ([facility]) - RLL pneumonia ([facility]) 04/19/13 - Tobacco use disorder - Unspecified asthma(493.90) - Unspecified essential hypertension Essential hypertension - Viral pneumonia, unspecified Pneumonia Previous Surgical History PAST SURGICAL HISTORY Procedure Laterality Date - CHOLECYSTECTOMY 1995 lap - COLONOSCOP W/ OR W/O BRSH SPEC 02/07/2014 Colonoscopy - DOPPLER ECHO HEART,COMPLETE 09/02/05 EF= 65% - EGD W/O OR W/BRUSH/WASH 02/07/2014 EGD - GASTRIC BYPASS HX 1985 - LEFT HEART CATH,PERCUTANEOUS 12/02/05 NORMAL - LUMBAR SPINE FUSION COMBINED 1992 X6 Family History FAMILY HISTORY Problem Relation Age of Onset - Hypertension Mother - Cancer Father lung 70 - Stroke Maternal Grandfather 81 - Breast Cancer Maternal Aunt Patient Allergies ALLERGIES Allergen Reactions - Macrobid [Nitrofura* Itching Hives and rash - Mri Dye [Contrast D* Vomiting constant vomiting, swell up, NEEDS premedication but still gets sick, not as bad - Ct Scan Dye [Other] Vomiting Vomiting, swelling of face: Needs premedication and gets sick, but not as bad - Fentanyl Intolerance Feels like throat is closing - Metformin GI Upset Has tried immediate release and XR formulation and unable to tolerate either - Sulfa (Sulfonamide * Itching Current Medications Current Outpatient Prescriptions on File Prior to Visit: doxycycline monohydrate (MONODOX) 100 mg capsule Take 1 capsule by mouth twice daily. predniSONE (DELTASONE) 10 mg tablet Take 6 tabs for 3 days, then 4 tabs for 3 days, then 2 tabs for 3 days then 1 tab for 3 days with food. benzonatate (TESSALON PERLE) 100 mg capsule Take 1 capsule by mouth three times daily as needed. budesonide (PULMICORT FLEXHALER) 180 mcg/actuation aepb Inhale 2 Puffs as instructed twice daily. albuterol HFA (PROVENTIL HFA, VENTOLIN HFA) 90 mcg/actuation inhaler Inhale 2 Puffs as instructed every 4 hours as needed. albuterol (PROVENTIL) 2.5 mg /3 mL (0.083 %) nebulizer solution Use 3 mL via nebulizer every 4 hours as needed for Wheezing/Shortness of Breath. Use over 5-15minutes. Nebulizer 1 Each every 4 hours as needed. NEBULIZER FOR HOME USE. DX: J44.1Albuterol solution cyclobenzaprine (FLEXERIL) 5 mg tablet TAKE 2 TABLETS BY MOUTH EVERY MORNING AND 1 TABLET IN THE AFTERNOON AND 2 TABLETS AT NIGHT gabapentin (NEURONTIN) 800 mg tablet TAKE 2 TABLETS BY MOUTH EVERY MORNING AND TAKE 1 TABLET IN THE AFTERNOON AND TAKE 1 TABLET AT BEDTIME blood sugar diagnostic (BLOOD GLUCOSE TEST) test strip Test blood sugar(s) 1-2 times daily and PRN. Dx: Type 2 DM - Controlled E11.9 Insulin: No Lancets lancets Test blood sugar(s) 1-2 times daily. Dx: Type 2 DM - Controlled E11.9 Insulin: No Blood-Glucose Meter monitoring kit Glucose Meter of Choice - Kit - Dx: Type 2 DM - Uncontrolled E11.65 ibuprofen (MOTRIN) 800 mg tablet Take 1 tablet by mouth every 8 hours as needed for Pain. Take with food. levothyroxine (SYNTHROID) 150 mcg tablet TAKE 1 TABLET BY MOUTH DAILY BEFORE BREAKFAST. JARDIANCE 10 mg tablet TAKE 1 TABLET BY MOUTH EVERY MORNING lisinopril (ZESTRIL, PRINIVIL) 10 mg tablet TAKE 1 TABLET BY MOUTH DAILY COMPOUNDED PRESCRIPTION Please provide patient with new nebulizer machine and supplies.Diagnosis: Wheezing, dyspnea. pantoprazole DR (PROTONIX) 40 mg tablet TAKE 1 TABLET BY MOUTH DAILY atorvastatin (LIPITOR) 20 mg tablet TAKE 1 TABLET BY MOUTH AT BEDTIME glimepiride (AMARYL) 4 mg tablet TAKE 1 TABLET BY MOUTH DAILY COMPOUNDED PRESCRIPTION Adult diaper: Depends: Size: [id number]: N39.46 Mixed incontinence urge and stress (female)ICD-10: N39.0 Recurrent UTI (urinary tract infection). COMPOUNDED PRESCRIPTION Powerstep orthotics(L30.9) Dermatitis (primary encounter diagnosis)(72.2) Plantar fasciitis, bilatera(E11.49) Other diabetic neurological complication associated with type 2 diabetes mellitus (HCC) COMPOUNDED PRESCRIPTION Physical therapy ordered for her for a home modification evaluation to evaluate need for lift chair or other DME that will assist patient in home and promote safety. BUSPIRONE HCL (BUSPAR ORAL) Take 30 mg by mouth twice daily. Lancets lancets Test blood sugar(s) one times daily. Dx: Type 2 DM - Controlled E11.9 Insulin: No DULoxetine (CYMBALTA) 60 mg capsule Take 120 mg by mouth once daily. predniSONE (DELTASONE) 10 mg tablet TAKE 1 TABLET BY MOUTH ONCE DAILY. clonazePAM (KLONOPIN) 0.5 mg tablet Take 1 tablet by mouth twice daily. No current facility-administered medications on file prior to visit. Social History Social History Marital status: Single Spouse name: Years of education: Number of children: 2 Occupational History Occupation Employer Comment [employer] Currently on Disab* Social History Main Topics Smoking status: Current Every Day Smoker Packs/day: 1.00 Years: 32.00 Types: Cigarettes Start date: 12/28/1984 Smokeless tobacco: Never Used Alcohol use: No Drug use: No Sexual activity: Not Currently EXAM: BP 124/78 Pulse 74 Temp 36.7 ?C (98 ?F) (Tympanic) Resp 18 Wt 128.4 kg (283 lb) LMP 01/27/2006 BMI 41.79 kg/m? General Appearance: Well appearing, alert, in no acute distress, well-hydrated, well nourished. and Morbidly obese. Lungs: wheezing throughout all lung batista Heart: RRR without murmur, gallop, or rubs. No ectopy. Health Maintenance List DILATED RETINAL EXAM due on 12/18/2016 PAP EVERY 5 YEARS due on 07/21/2018 HPV EVERY 5 YEARS due on 07/21/2018 STATIN MED ADHERENCE due on 02/26/2018 STEROID INHALER PRESCRIBED due on 02/26/2018 DIABETES MED ADHERENCE due on 02/26/2018 STEROID INHALER ADHERENCE due on 02/26/2018 MAMMOGRAM due on 03/31/2018 URINE ALBUMIN:CREATININE RATIO due on 05/12/2018 HBA1C due on 07/14/2018 LDL CHOLESTEROL due on 08/02/2018 DIABETIC FOOT EXAM due on 01/13/2019 ANNUAL PCP TEAM CHRONIC DISEASE VISIT due on 01/13/2019 BP CONTROLLED (<130/80) due on 01/13/2019 COLORECTAL CANCER SCREENING,SEE MODIFIER due on 02/08/2024 DTAP,TDAP,TD(2 - Td) due on 03/20/2025 ONE PNEUMOVAX PRIOR TO AGE 65 Completed INFLUENZA Completed Data reviewed None ASSESSMENT/PLAN: 1. Bacterial pneumonia - ICD9: 482.9, ICD10: J15.9 (primary diagnosis) Will place on omnicef, increased prednisone; recheck CXR, Rx for nebulizer - if not improving with this would most likely need hospitalization 2. Mild asthma without complication, unspecified whether persistent - ICD9: 493.90, ICD10: J45.909 3. Mild persistent asthma without complication - ICD9: 493.90, ICD10: J45.30 Follow up as needed. Will call with CXR results. I agree with the Chief Complaint, ROS, and Past Histories independently gathered by the clinical support director and the remaining scribed note accurately describes my personal service to the patient. Mignon Walsh MD The documentation for this note was completed by Magalie Mckeon Ma acting as scribe for Mignon Walsh MD. February 04, 2018 1:24 PM. CNOV Observed: 02/04/2018 Status: COMPLETED Source: ONYX 1:20 PM [facility] REPOSITORY Office Visit (FAMPWS) KATHERIN SUERO ([id number]) 1965 F CHT Date Time Provider Department 02/04/18 1:20 PM MIGNON WALSH During your visit today, we recorded the following information about you: Temperature Pulse Respiration Blood pressure 98 degrees 74/minute 18/minute 124/78 Weight 128.4 kg Mignon Walsh MD 02/04/2018 2:10 PM Signed Chief Complaint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 appearing, alert, in no acute distress, well-hydrated, well nourished. and Obese. Head: Normocephalic, no masses, lesions, tenderness or abnormalities. Eyes: Anicteric sclera. Pupils are equally round and reactive to light. Extraocular movements are intact. . Ears: External ears normal, canals clear. Nose/Sinuses: Nares normal, septum midline, mucosa normal, no drainage or sinus tenderness. Oropharynx: Lips, mucosa, and tongue normal, teeth and gums normal, oropharynx normal. Lungs: Positive findings: wheezing , rhonchi throughout posterior lung batista. Cough. Heart: RRR without murmur, gallop, or rubs. No ectopy. Feet:Shoes and socks removed, normal distal pulses, not sensitive to monofilament bilaterally and has cracked, dry skin, small skin tear on the plantar side of the left foot. Health Maintenance List DILATED RETINAL EXAM due on 12/18/2016 DIABETIC FOOT EXAM due on 11/12/2017 STATIN MED ADHERENCE due on 01/27/2018 STEROID INHALER PRESCRIBED due on 01/27/2018 DIABETES MED ADHERENCE due on 01/27/2018 STEROID INHALER ADHERENCE due on 01/27/2018 MAMMOGRAM due on 03/31/2018 HBA1C due on 04/21/2018 URINE ALBUMIN:CREATININE RATIO due on 05/12/2018 PAP EVERY 5 YEARS due on 07/21/2018 HPV EVERY 5 YEARS due on 07/21/2018 LDL CHOLESTEROL due on 08/02/2018 ANNUAL PCP TEAM CHRONIC DISEASE VISIT due on 12/31/2018 BP CONTROLLED (<130/80) due on 12/31/2018 COLORECTAL CANCER SCREENING,SEE MODIFIER due on 02/08/2024 DTAP,TDAP,TD(2 - Td) due on 03/20/2025 ONE PNEUMOVAX PRIOR TO AGE 65 Completed INFLUENZA Completed Data reviewed Component Latest Ref Rng AND Units 08/02/2017 10/19/2017 Protein, Total 6.3 - 8.0 g/dL 7.1 Albumin 3.9 - 4.9 g/dL 3.9 Calcium 8.5 - 10.2 mg/dL 9.0 9.1 Bilirubin, Total 0.2 - 1.3 mg/dL 0.3 Alkaline Phosphatase 32 - 117 U/L 68 AST 13 - 35 U/L 12 (L) Glucose 74 - 99 mg/dL 165 (H) 124 (H) BUN 7 - 21 mg/dL 6 (L) 5 (L) Creatinine 0.58 - 0.96 mg/dL 0.72 0.67 Sodium 136 - 144 mmol/L 138 140 Potassium 3.7 - 5.1 mmol/L 3.7 4.2 Chloride 97 - 105 mmol/L 95 (L) 103 CO2 22 - 30 mmol/L 25 22 Anion Gap 9 - 18 mmol/L 18 15 ALT 7 - 38 U/L 11 eGFR- >60 >60 eGFR-All Other Races . >60 >60 Cholesterol, Total <200 mg/dL 149 Triglyceride <150 mg/dL 203 (H) HDL Cholesterol >39 mg/dL 38 (L) LDL Cholesterol <100 mg/dL 70 Non HDL Cholesterol <130 mg/dL 111 Fasting Time hrs 12 VLDL Cholesterol <30 mg/dL 41 (H) TC:HDL Ratio <5.10 3.92 LDL:HDL Ratio <2.54 1.84 Hemoglobin A1C 4.3 - 5.6 % 6.8 (H) Estimated Average Glucose mg/dL 148 TSH 0.400 - 5.500 uU/mL 5.100 ASSESSMENT/PLAN: 1. Controlled type 2 diabetes mellitus without complication, without long-term current use of insulin (HCC) - ICD9: 250.00, ICD10: E11.9 (primary diagnosis) Controlled we will get hemoglobin A1c today to determine progress. - Continue current medications - continue with podiatry appointment next week. 2. Essential hypertension - ICD9: 401.9, ICD10: I10 - good control - Continue current medication(s) - Recommended regular aerobic exercise. - Goal of BP <130/80 check CMP today. 3. Hypothyroidism due to acquired atrophy of thyroid - ICD9: 244.8, 246.8, ICD10: E03.4 - continue current dose of Synthroid 0.150 mg 4. COPD with exacerbation (HCC) - ICD9: 491.21, ICD10: J44.1 - we will treat today with prednisone, get chest x-ray and get her back on her inhalers, nebulizer. - PREDNISONE 10 MG TABLET - ALBUTEROL SULFATE HFA 90 MCG/ACTUATION AEROSOL INHALER 5. Cough - ICD9: 786.2, ICD10: R05 - probable COPD exacerbation. We will get imaging, giving approximately needed. - PREDNISONE 10 MG TABLET - XR CHEST 2V FRONTAL/LAT - BENZONATATE 100 MG CAPSULE 6. Tear of skin of plantar aspect of left foot, initial encounter - ICD9: 892.0, ICD10: S91.312A - small skin tear was cleansed with normal saline, triple antibiotic ointment was applied and a Band-Aid was placed. A shunt was advised to look for signs of infection, use Vaseline and cover with socks for hydration of the skin for both feet 7. Change in consistency of stool - ICD9: 787.7, ICD10: R19.5 - does have a history of C. difficile and has been on Levaquin within the last 1-2 months. We will rule out C. difficile or other sources of infection. If normal will prescribe a bulking agent like a bile acid sequestrum. - C. DIFFICILE PCR - STOOL CULTURE/EIA 8. Mild persistent asthma without complication - ICD9: 493.90, ICD10: J45.30 - ALBUTEROL SULFATE 2.5 MG/3 ML (0.083 %) SOLUTION FOR NEBULIZATION Imaging today, get labs today. We assisted her to the lab to ensure that she gets these labs completed. Follow-up in 3 months, sooner if needed. Dc Smalls APRN.YOAN PROGRESS Observed: 01/06/2018 Status: COMPLETED Source: ONYX 12:41 PM [facility] REPOSITORY HNO ID: [id number] Author: Malik Bermudez (Kevan) Service: (none) Author Type: Registered Nurse Type: Progress Notes Filed: 01/06/2018 12:59 PM Note Text: PRIMARY CARE COORDINATION QUICK NOTE Provider Action/FYI Call to Pt notified orders filed, Pt noted appreciation Patient identified by name and date . Aidan Gan RN January 06, 2018 12:52 PM PROGRESS Observed: 01/06/2018 Status: COMPLETED Source: ONYX 7:10 AM [facility] REPOSITORY HNO ID: [id number] Author: Dc Smalls Service: (none) Author Type: Nurse Practitioner Type: Progress Notes Filed: 01/06/2018 12:59 PM Note Text: Orders filed. Dc Smalls APRN.CNP PROGRESS Observed: 01/05/2018 Status: COMPLETED Source: ONYX 3:54 PM [facility] REPOSITORY HNO ID: [id number] Author: Malik SalvadorRn) Service: (none) Author Type: Registered Nurse Type: Progress Notes Filed: 01/06/2018 12:59 PM Note Text: PRIMARY CARE COORDINATION FOLLOW-UP NOTE Provider Action/FYI 1. Spk with Pt who reports was living in an unsafe situation, is now living in [facility] with her mother temporarily, provided phone number and SW consult placed for Katelyn GOLDBERG for available housing in [facility], Steps/ 180 Appt scheduled on 01/06/18 2. Pt has not been testing BS, reports when leaving previous housing meter was left, requesting new meter, strips, and lancets (Pended for [facility] in [place]) Pt will contact pharmacy to verify order received. 3. Health Maintenance review- Instructed Lab work is due prior to appt if able. Pt noted verbalized understanding 4. Instructed to take complete course of Levaquin and push fluids as previously instructed. Pt verbalized understanding. 5. Pt is smoking a pack of cigarettes daily, smoking cessation discussed Patient identified by name and date of . YES Spoke to patient Concerns: SW consult place for housing in [facility] [place] plan for next outreach: Signature Aidan Gan RN January 05, 2018 CNPTOUTREACH Observed: 01/05/2018 Status: COMPLETED Source: ONYX 12:00 AM [facility] REPOSITORY Patient Outreach (FAMPWS) KATHERIN SUERO ([id number]) 1965 F [facility] Date Time Provider Department 01/05/18 MALIK CALVO) FAMPWS During your visit today, we recorded the following information about you: Aidan Gan RN 01/06/2018 12:59 PM Signed PRIMARY CARE COORDINATION FOLLOW-UP NOTE Provider Action/FYI 1. Spk with Pt who reports was living in an unsafe situation, is now living in [facility] with her mother temporarily, provided phone number and SW consult placed for Katelyn Mcpherson YUSUF for available housing in [facility], Steps/ 180 Appt scheduled on 01/06/18 2. Pt has not been testing BS, reports when leaving previous housing meter was left, requesting new meter, strips, and lancets (Pended for [facility] in [place]) Pt will contact pharmacy to verify order received. 3. Health Maintenance review- Instructed Lab work is due prior to appt if able. Pt noted verbalized understanding 4. Instructed to take complete course of Levaquin and push fluids as previously instructed. Pt verbalized understanding. 5. Pt is smoking a pack of cigarettes daily, smoking cessation discussed Patient identified by name and date of . YES Spoke to patient Concerns: SW consult place for housing in [facility] [place] plan for next outreach: Signature Aidan Gan RN January 05, 2018 Dc Smalls APRN.YOAN 01/06/2018 12:59 PM Signed Orders filed. Dc Smalls APRN.YOAN Gan RN 01/06/2018 12:59 PM Signed PRIMARY CARE COORDINATION QUICK NOTE Provider Action/FYI Call to Pt notified orders filed, Pt noted appreciation Patient identified by name and date . Aidan aGn RN January 06, 2018 12:52 PM Allergies As of Date: 01/05/2018 Noted Allergy Reaction MACROBID (NITROFURANTOIN MONOHYD/*11/07/2015 9 - Itching Comments: Hives and rash MRI DYE (CONTRAST DYE) 08/02/2009 11 - Vomiting Comments: constant vomiting, swell up, NEEDS premedication but still gets sick, not as bad ct scan dye [Other] 08/02/2009 11 - Vomiting Comments: Vomiting, swelling of face: Needs premedication and gets sick, but not as bad FENTANYL 05/09/2013 5 - Intolerance Comments: Feels like throat is closing METFORMIN 08/20/2015 8 - GI Upset Comments: Has tried immediate release and XR formulation and unable to tolerate either SULFA (SULFONAMIDE ANTIBIOTICS) 05/09/2013 9 - Itching Date Reviewed: 12/31/2017 Reviewed by: Magalie Mckeon Ma - Fully Assessed 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 Dx: Type 2 DM - Controlled E11.9 Insulin: NoDisp: 100 StripRfl: 5 Lancets lancetsTest blood sugar(s) 1-2 times daily. Dx: Type 2 DM - Controlled E11.9 Insulin: NoDisp: 50 EachRfl: 11 Blood-Glucose Meter monitoring kitGlucose Meter of Choice - Kit - Dx: Type 2 DM - Uncontrolled E11.65Disp: 1 EachRfl: 0 Prescriptions as of 01/05/2018 Sig: BLOOD SUGAR DIAGNOSTIC STRIPS Test blood sugar(s) 1- 2 time* LANCETS Test blood sugar(s) 1- 2 times* BLOOD-GLUCOSE METER KIT Glucose Meter of Choice - Kit* LEVOFLOXACIN 750 MG TABLET Take 1 tablet by mouth once d* PREDNISONE 10 MG TABLET Take 4 tabs daily for 3 days,* IBUPROFEN 800 MG TABLET Take 1 tablet by mouth every * ABATACEPT 125 MG/ML SUBCUTANE* Inject 125 mg subcutaneously * LEVOTHYROXINE 150 MCG TABLET TAKE 1 TABLET BY MOUTH DAILY * CYCLOBENZAPRINE 5 MG TABLET TAKE 2 TABLETS BY MOUTH EVERY* JARDIANCE 10 MG TABLET TAKE 1 TABLET BY MOUTH EVERY * LISINOPRIL 10 MG TABLET TAKE 1 TABLET BY MOUTH DAILY GABAPENTIN 800 MG TABLET TAKE 2 TABLETS BY MOUTH EVERY* COMPOUNDED PRESCRIPTION Please provide patient with n* ALBUTEROL SULFATE 2.5 MG/3 ML* Use 3 mL via nebulizer every * PREDNISONE 10 MG TABLET TAKE 1 TABLET BY MOUTH ONCE D* PANTOPRAZOLE 40 MG TABLET,DEL* TAKE 1 TABLET BY MOUTH DAILY ATORVASTATIN 20 MG TABLET TAKE 1 TABLET BY MOUTH AT BED* GLIMEPIRIDE 4 MG TABLET TAKE 1 TABLET BY MOUTH DAILY COMPOUNDED PRESCRIPTION Adult diaper: Depends: Size:* ALBUTEROL SULFATE HFA 90 MCG/* Inhale 2 Puffs as instructed * BUDESONIDE 180 MCG/ACTUATION * Inhale 2 Puffs as instructed * CLONAZEPAM 0.5 MG TABLET Take 1 tablet by mouth twice * COMPOUNDED PRESCRIPTION Powerstep orthotics (L30.9* COMPOUNDED PRESCRIPTION Physical therapy ordered for * BUSPAR ORAL Take 30 mg by mouth twice tyrell* LANCETS Test blood sugar(s) one times* DULOXETINE 60 MG CAPSULE,SERG* Take 120 mg by mouth once tyrell* Problem List As Of Date 01/05/2018 Noted Resolved Shortness of breath [R06.02] 07/01/2015 Asthma with exacerbation [J45.901] 07/01/2015 Viral pneumonia, unspecified [J12.9] 07/01/2015 More... MITRAL VALVE DISORDER [I05.9] Tobacco use disorder [F17.200] 07/01/2015 Essential hypertension [I10] More... MIXED HYPERLIPIDEMIA [E78.2] More... COUGH [R05] INVALID FOR* INCONTINENCE W/O SENSORY AWARENESS [N39.42] INVALID FOR*07/01/2015 URGE AND STRESS MIXED INCONTINENCE [N39.46] INVALID FOR* Morbid obesity with BMI of 45.0-49.9, adult [E6*INVALID FOR*07/01/2015 Tobacco abuse [Z72.0] INVALID FOR* Hyperlipidemia [E78.5] INVALID FOR*04/10/2016 Fibromyalgia [M79.7] INVALID FOR* Hypothyroidism [E03.9] INVALID FOR*07/01/2015 Asthma with COPD ([facility]) [J44.9] INVALID FOR*07/01/2015 RLL pneumonia [J18.1] INVALID FOR*04/10/2016 GERD (gastroesophageal reflux disease) [K21.9] INVALID FOR* H. 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*INVALID FOR* NIMESH (obstructive sleep apnea) [G47.33] INVALID FOR* Asthma [J45.909] INVALID FOR* Seronegative rheumatoid arthritis (HCC) [M06.00]INVALID FOR* Controlled substance agreement signed [Z79.899] INVALID FOR* Bladder spasms [N32.89] INVALID FOR* Uncontrolled type 2 diabetes mellitus without c*INVALID FOR* Recurrent UTI [N39.0] INVALID FOR* Long-term use of immunosuppressant medication [*INVALID FOR* Prescriptions ordered this encounter Disp Refills Start End BLOOD SUGAR DIAGNOSTIC STRIPS 100 * 5 01/06/2018 Sig: Test blood sugar(s) 1-2 times daily and PRN. Dx: Type 2 DM - Controlled E11.9 Insulin: No LANCETS 50 E* 11 01/06/2018 Sig: Test blood sugar(s) 1-2 times daily. Dx: Type 2 DM - Controlled E11.9 Insulin: No BLOOD-GLUCOSE METER KIT 1 Ea* 0 01/06/2018 Sig: Glucose Meter of Choice - Kit - Dx: Type 2 DM - Uncontrolled E11.65 Medications Discontinued During This Encounter blood sugar diagnostic (BLOOD GLUCOS* 100 * 5 06/13/2016 01/06/2018 Cmt: Brand covered by [employer] insurance Sig: Test blood sugar(s) 1-2 times daily and PRN. Dx: Type 2 DM - Controlled E11.9 Insulin: No Disc: Reason for discontinue is not on file. Lancets lancets 50 E* 11 07/10/2015 01/06/2018 Cmt: Brand covered by [employer] insurance Sig: Test blood sugar(s) 1-2 times daily. Dx: Type 2 DM - Controlled E11.9 Insulin: No Disc: Reason for discontinue is not on file. Blood-Glucose Meter monitoring kit 1 Ea* 0 04/27/2017 01/06/2018 Sig: Glucose Meter of Choice - Kit - Dx: Type 2 DM - Uncontrolled E11.65 Disc: Reason for discontinue is not on file. Encounter Status:Closed by AIDAN GAN on 01/06/18 CNOV Observed: 12/31/2017 Status: COMPLETED Source: ONYX 4:40 PM [facility] REPOSITORY Office Visit (FAMPWS) KATHERIN SUERO ([id number]) 1965 F [facility] Date Time Provider Department 12/31/17 4:40 PM MIGNON WALSH FAMPWS During your visit today, we recorded the following information about you: Temperature Pulse Respiration Blood pressure 97.5 degrees 66/minute 18/minute 124/68 Weight 125.2 kg Mignon Walsh MD 12/31/2017 5:50 PM Signed Chief Complaint Patient presents with: Uti - Re-occurring Dizziness Confused HPI Katherin Suero is a 52 year old female who presents here today for Above Complaints.. Pt states that over the last 4 days she has been feeling confused, unsteady, dizzy. She states she does not feel like her self. She is sleepy a lot. States she has been checking her sugars the last few days readings around 220. She states she can't urinate, she has some pain in the right lower back and flank. States she has been running a fever. Complains that wheezing is worse the last few days; requests prednisone burst; on 10 mg daily Past medical history, appointments, medications, allergies reviewed. Previous Medical History PAST MEDICAL HISTORY Diagnosis Date - Asthma with exacerbation - Chronic back pain - Chronic bronchitis ([facility]) 06/[address] Ponce - Chronic gastritis egd 02/07/14 - Depression Dr. Jameson [facility] - Dyslipidemia elevated TG, low HDL - H. pylori infection 06/2013 - Hypothyroidism - Impaired fasting glucose 06/2013 - Leukocytosis - Mitral valve disorders(424.0) MILD PROLAPSE NO REGUGITATION - Neuropathy ([facility]) b/l feet - NIMESH (obstructive sleep apnea) - Osteoarthritis of both knees 08/2013 - Psoriatic arthritis ([facility]) Dr. Rebecca Burgess - Rheumatoid arthritis ([facility]) - RLL pneumonia ([facility]) 04/19/13 - Tobacco use disorder - Unspecified asthma(493.90) - Unspecified essential hypertension Essential hypertension - Viral pneumonia, unspecified Pneumonia Previous Surgical History PAST SURGICAL HISTORY Procedure Laterality Date - CHOLECYSTECTOMY 1995 lap - COLONOSCOP W/ OR W/O BRSH SPEC 02/07/2014 Colonoscopy - DOPPLER ECHO HEART,COMPLETE 09/02/05 EF= 65% - EGD W/O OR W/BRUSH/WASH 02/07/2014 EGD - GASTRIC BYPASS HX 1986 - LEFT HEART CATH,PERCUTANEOUS 12/02/05 NORMAL - LUMBAR SPINE FUSION COMBINED 1992 X6 Family History FAMILY HISTORY Problem Relation Age of Onset - Hypertension Mother - Cancer Father lung 70 - Stroke Maternal Grandfather 81 - Breast Cancer Maternal Aunt Patient Allergies ALLERGIES Allergen Reactions - Macrobid [Nitrofura* Itching Hives and rash - Mri Dye [Contrast D* Vomiting constant vomiting, swell up, NEEDS premedication but still gets sick, not as bad - Ct Scan Dye [Other] Vomiting Vomiting, swelling of face: Needs premedication and gets sick, but not as bad - Fentanyl Intolerance Feels like throat is closing - Metformin GI Upset Has tried immediate release and XR formulation and unable to tolerate either - Sulfa (Sulfonamide * Itching Current Medications Current Outpatient Prescriptions on File Prior to Visit: abatacept (ORENCIA) 125 mg/mL syrg Inject 125 mg subcutaneously once each week. levothyroxine (SYNTHROID) 150 mcg tablet TAKE 1 TABLET BY MOUTH DAILY BEFORE BREAKFAST. ibuprofen (MOTRIN) 800 mg tablet Take 1 tablet by mouth every 8 hours as needed for Pain. Take with food. cyclobenzaprine (FLEXERIL) 5 mg tablet TAKE 2 TABLETS BY MOUTH EVERY MORNING AND 1 TABLET IN THE AFTERNOON AND 2 TABLETS AT NIGHT JARDIANCE 10 mg tablet TAKE 1 TABLET BY MOUTH EVERY MORNING lisinopril (ZESTRIL, PRINIVIL) 10 mg tablet TAKE 1 TABLET BY MOUTH DAILY gabapentin (NEURONTIN) 800 mg tablet TAKE 2 TABLETS BY MOUTH EVERY MORNING AND TAKE 1 AND 1/2 TABLETS IN THE AFTERNOON AND TAKE 1 TABLET AT BEDTIME COMPOUNDED PRESCRIPTION Please provide patient with new nebulizer machine and supplies.Diagnosis: Wheezing, dyspnea. albuterol (PROVENTIL) 2.5 mg /3 mL (0.083 %) nebulizer solution Use 3 mL via nebulizer every 4 hours as needed for Wheezing/Shortness of Breath. Use over 5-15minutes. pantoprazole DR (PROTONIX) 40 mg tablet TAKE 1 TABLET BY MOUTH DAILY atorvastatin (LIPITOR) 20 mg tablet TAKE 1 TABLET BY MOUTH AT BEDTIME glimepiride (AMARYL) 4 mg tablet TAKE 1 TABLET BY MOUTH DAILY COMPOUNDED PRESCRIPTION Adult diaper: Depends: Size: [id number]: N39.46 Mixed incontinence urge and stress (female)ICD-10: N39.0 Recurrent UTI (urinary tract infection). albuterol HFA (PROVENTIL HFA, VENTOLIN HFA) 90 mcg/actuation inhaler Inhale 2 Puffs as instructed every 4 hours as needed. Blood-Glucose Meter monitoring kit Glucose Meter of Choice - Kit - Dx: Type 2 DM - Uncontrolled E11.65 budesonide (PULMICORT FLEXHALER) 180 mcg/actuation aepb Inhale 2 Puffs as instructed twice daily. clonazePAM (KLONOPIN) 0.5 mg tablet Take 1 tablet by mouth twice daily. COMPOUNDED PRESCRIPTION Powerstep orthotics(L30.9) Dermatitis (primary encounter diagnosis)(72.2) Plantar fasciitis, bilatera(E11.49) Other diabetic neurological complication associated with type 2 diabetes mellitus (HCC) COMPOUNDED PRESCRIPTION Physical therapy ordered for her for a home modification evaluation to evaluate need for lift chair or other DME that will assist patient in home and promote safety. blood sugar diagnostic (BLOOD GLUCOSE TEST) test strip Test blood sugar(s) 1-2 times daily and PRN. Dx: Type 2 DM - Controlled E11.9 Insulin: No BUSPIRONE HCL (BUSPAR ORAL) Take 30 mg by mouth twice daily. Lancets lancets Test blood sugar(s) one times daily. Dx: Type 2 DM - Controlled E11.9 Insulin: No Lancets lancets Test blood sugar(s) 1-2 times daily. Dx: Type 2 DM - Controlled E11.9 Insulin: No DULoxetine (CYMBALTA) 60 mg capsule Take 120 mg by mouth once daily. predniSONE (DELTASONE) 10 mg tablet TAKE 1 TABLET BY MOUTH ONCE DAILY. No current facility-administered medications on file prior to visit. Social History Social History Marital status: Single Spouse name: Years of education: Number of children: 2 Occupational History Occupation Employer Comment [employer] Currently on Disab* Social History Main Topics Smoking status: Current Every Day Smoker Packs/day: 1.00 Years: 32.00 Types: Cigarettes Start date: 12/28/1984 Smokeless tobacco: Never Used Alcohol use: No Drug use: No Sexual activity: Not Currently EXAM: BP 124/68 Pulse 66 Temp 36.4 ?C (97.5 ?F) (Tympanic) Resp 18 Wt 125.2 kg (276 lb) LMP 01/27/2006 BMI 40.76 kg/m? General Appearance: Obese, awake and alert, speech mildly slurred but appropriate. Back:mild-moderate right flank tenderness Health Maintenance List BP CONTROLLED (<130/80) due on 12/04/1983 DILATED RETINAL EXAM due on 12/18/2016 DIABETIC FOOT EXAM due on 11/12/2017 STATIN MED ADHERENCE due on 01/27/2018 STEROID INHALER PRESCRIBED due on 01/27/2018 DIABETES MED ADHERENCE due on 01/27/2018 STEROID INHALER ADHERENCE due on 01/27/2018 MAMMOGRAM due on 03/31/2018 HBA1C due on 04/21/2018 URINE ALBUMIN:CREATININE RATIO due on 05/12/2018 PAP EVERY 5 YEARS due on 07/21/2018 HPV EVERY 5 YEARS due on 07/21/2018 LDL CHOLESTEROL due on 08/02/2018 ANNUAL PCP TEAM CHRONIC DISEASE VISIT due on 12/14/2018 COLORECTAL CANCER SCREENING,SEE MODIFIER due on 02/08/2024 DTAP,TDAP,TD(2 - Td) due on 03/20/2025 ONE PNEUMOVAX PRIOR TO AGE 65 Completed INFLUENZA Completed Data reviewed UA pos blood, leuk, nitrates Glucose 299 ASSESSMENT/PLAN: 1. Recurrent UTI (urinary tract infection) - ICD9: 599.0, ICD10: N39.0 (primary diagnosis) acute - UA positive for nitrates - Send urine for culture - Begin treatment with levaquin for 7 days - UA DIP B/O - LEVOFLOXACIN 750 MG TABLET - URINE CULTURE 2. Confusion - ICD9: 298.9, ICD10: R41.0 Monitor; if worsening seek ER eval 3. Uncontrolled type 2 diabetes mellitus without complication, without long-term current use of insulin (HCC) - ICD9: 250.02, ICD10: E11.65 - GLUCOSE, BLOOD (POC) 4. COPD with exacerbation (HCC) - ICD9: 491.21, ICD10: J44.1 - PREDNISONE 10 MG TABLET 5. Wrist pain, acute, right - ICD9: 719.43, ICD10: M25.531 - IBUPROFEN 800 MG TABLET 6. Acute foot pain, left - ICD9: 729.5, ICD10: M79.672 - IBUPROFEN 800 MG TABLET Start levaquin, may use prednisone for COPD; if not improving in the next 2 days seek ER eval I agree with the Chief Complaint, ROS, and Past Histories independently gathered by the clinical support director and the remaining scribed note accurately describes my personal service to the patient. Mignon Walsh MD The documentation for this note was completed by Magalie Mckeon Ma acting as scribe for Mignon Walsh MD. December 31, 2017 3:51 PM. Referring Provider: SELF [[id number]] Allergies As of Date: 12/31/2017 Noted Allergy Reaction MACROBID (NITROFURANTOIN MONOHYD/*11/07/2015 9 - Itching Comments: Hives and rash MRI DYE (CONTRAST DYE) 08/02/2009 11 - Vomiting Comments: constant vomiting, swell up, NEEDS premedication but still gets sick, not as bad ct scan dye [Other] 08/02/2009 11 - Vomiting Comments: Vomiting, swelling of face: Needs premedication and gets sick, but not as bad FENTANYL 05/09/2013 5 - Intolerance Comments: Feels like throat is closing METFORMIN 08/20/2015 8 - GI Upset Comments: Has tried immediate release and XR formulation and unable to tolerate either SULFA (SULFONAMIDE ANTIBIOTICS) 05/09/2013 9 - Itching Date Reviewed: 12/31/2017 Reviewed by: Magalie Mckeon Ma - Fully Assessed Reason for Visit: Uti - Re-occurring [3579] Dizziness [36] Confused [49466] Reason For Visit History Recorded Primary Visit Diagnosis:Recurrent UTI (urinary tract infection) [N39.0] Other Visit Diagnoses:Confusion [R41.0] Uncontrolled type 2 diabetes mellitus without complication, without long-term current use of insulin (HCC) [E11.65] COPD with exacerbation (HCC) [J44.1] Wrist pain, acute, right [M25.531] Acute foot pain, left [M79.672] Order(s):UA DIP, URINE (POC) [[id number]] Order #: [id number]. #:[id number] UA DIP B/O [[id number]] Order #: [id number] GLUCOSE, BLOOD (POC) [[id number]] Order #: [id number] levoFLOXacin (LEVAQUIN) 750 mg tabletTake 1 tablet by mouth once daily for 7 days.Disp: 7 tabletRfl: 0 predniSONE (DELTASONE) 10 mg tabletTake 4 tabs daily for 3 days, then 2 tabs daily for 3 days, then 1 tab daily for 3 days with food.Disp: 21 tabletRfl: 0 URINE CULTURE [SQURCUL] Order #: [id number] ibuprofen (MOTRIN) 800 mg tabletTake 1 tablet by mouth every 8 hours as needed for Pain. Take with food.Disp: 60 tabletRfl: 2 Prescriptions as of 12/31/2017 Sig: IBUPROFEN 800 MG TABLET Take 1 tablet by mouth every * ABATACEPT 125 MG/ML SUBCUTANE* Inject 125 mg subcutaneously * LEVOTHYROXINE 150 MCG TABLET TAKE 1 TABLET BY MOUTH DAILY * CYCLOBENZAPRINE 5 MG TABLET TAKE 2 TABLETS BY MOUTH EVERY* JARDIANCE 10 MG TABLET TAKE 1 TABLET BY MOUTH EVERY * LISINOPRIL 10 MG TABLET TAKE 1 TABLET BY MOUTH DAILY GABAPENTIN 800 MG TABLET TAKE 2 TABLETS BY MOUTH EVERY* COMPOUNDED PRESCRIPTION Please provide patient with n* ALBUTEROL SULFATE 2.5 MG/3 ML* Use 3 mL via nebulizer every * PANTOPRAZOLE 40 MG TABLET,DEL* TAKE 1 TABLET BY MOUTH DAILY ATORVASTATIN 20 MG TABLET TAKE 1 TABLET BY MOUTH AT BED* GLIMEPIRIDE 4 MG TABLET TAKE 1 TABLET BY MOUTH DAILY COMPOUNDED PRESCRIPTION Adult diaper: Depends: Size:* ALBUTEROL SULFATE HFA 90 MCG/* Inhale 2 Puffs as instructed * BLOOD-GLUCOSE METER KIT Glucose Meter of Choice - Kit* BUDESONIDE 180 MCG/ACTUATION * Inhale 2 Puffs as instructed * CLONAZEPAM 0.5 MG TABLET Take 1 tablet by mouth twice * COMPOUNDED PRESCRIPTION Powerstep orthotics (L30.9* COMPOUNDED PRESCRIPTION Physical therapy ordered for * BLOOD SUGAR DIAGNOSTIC STRIPS Test blood sugar(s) 1- 2 time* BUSPAR ORAL Take 30 mg by mouth twice tyrell* LANCETS Test blood sugar(s) one times* LANCETS Test blood sugar(s) 1- 2 times* DULOXETINE 60 MG CAPSULE,SERG* Take 120 mg by mouth once tyrell* LEVOFLOXACIN 750 MG TABLET Take 1 tablet by mouth once d* PREDNISONE 10 MG TABLET Take 4 tabs daily for 3 days,* PREDNISONE 10 MG TABLET TAKE 1 TABLET BY MOUTH ONCE D* Problem List As Of Date 12/31/2017 Noted Resolved Shortness of breath [R06.02] 07/01/2015 Asthma with exacerbation [J45.901] 07/01/2015 Viral pneumonia, unspecified [J12.9] 07/01/2015 More... MITRAL VALVE DISORDER [I05.9] Tobacco use disorder [F17.200] 07/01/2015 Essential hypertension [I10] More... MIXED HYPERLIPIDEMIA [E78.2] More... COUGH [R05] INVALID FOR* INCONTINENCE W/O SENSORY AWARENESS [N39.42] INVALID FOR*07/01/2015 URGE AND STRESS MIXED INCONTINENCE [N39.46] INVALID FOR* Morbid obesity with BMI of 45.0-49.9, adult [E6*INVALID FOR*07/01/2015 Tobacco abuse [Z72.0] INVALID FOR* Hyperlipidemia [E78.5] INVALID FOR*04/10/2016 Fibromyalgia [M79.7] INVALID FOR* Hypothyroidism [E03.9] INVALID FOR*07/01/2015 Asthma with COPD (HCC) [J44.9] INVALID FOR*07/01/2015 RLL pneumonia [J18.1] INVALID FOR*04/10/2016 GERD (gastroesophageal reflux disease) [K21.9] INVALID FOR* H. 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*INVALID FOR* NIMESH (obstructive sleep apnea) [G47.33] INVALID FOR* Asthma [J45.909] INVALID FOR* Seronegative rheumatoid arthritis ([facility]) [M06.00]INVALID FOR* Controlled substance agreement signed [Z79.899] INVALID FOR* Bladder spasms [N32.89] INVALID FOR* Uncontrolled type 2 diabetes mellitus without c*INVALID FOR* Recurrent UTI [N39.0] INVALID FOR* Long-term use of immunosuppressant medication [*INVALID FOR* Prescriptions ordered this encounter Disp Refills Start End LEVOFLOXACIN 750 MG TABLET 7 ta* 0 12/31/2017 01/07/2018 Route: ORAL Sig: Take 1 tablet by mouth once daily for 7 days. PREDNISONE 10 MG TABLET 21 t* 0 12/31/2017 01/09/2018 Sig: Take 4 tabs daily for 3 days, then 2 tabs daily for 3 days, then 1 tab daily for 3 days with food. IBUPROFEN 800 MG TABLET 60 t* 2 12/31/2017 Route: ORAL Sig: Take 1 tablet by mouth every 8 hours as needed for Pain. Take with food. Medications Discontinued During This Encounter predniSONE (DELTASONE) 10 mg tablet 21 t* 0 12/14/2017 12/31/2017 Sig: Take 4 tabs daily for 3 days, then 2 tabs daily for 3 days, then 1 tab daily for 3 days with food. Disc: Reason for discontinue is not on file. ibuprofen (MOTRIN) 800 mg tablet 60 t* 2 12/14/2017 12/31/2017 Route: ORAL Sig: Take 1 tablet by mouth every 8 hours as needed for Pain. Take with food. Disc: Reason for discontinue is not on file. Encounter Status:Closed by MIGNON WALSH MD on 12/31/17 Observed: 12/31/2017 Status: F Source: ONYX URINE CULTURE 4:06 PM [facility] REPOSITORY Sp. Request/Comment: - Specimen received in preservative Culture Result - 10,000 - <50,000 CFU/ml Normal urogenital rafiq Performed By: #### URCUL #### [facility] [address] [place] [id number] PROGRESS Observed: 12/31/2017 Status: COMPLETED Source: ONYX 3:51 PM [facility] REPOSITORY HNO ID: [id number] Author: Mignon Walsh Service: (none) Author Type: Physician Type: Progress Notes Filed: 12/31/2017 5:50 PM Note Text: Chief Complaint Patient presents with: Uti - Re-occurring Dizziness Confused HPI Katherin Suero is a 52 year old female who presents here today for Above Complaints.. Pt states that over the last 4 days she has been feeling confused, unsteady, dizzy. She states she does not feel like her self. She is sleepy a lot. States she has been checking her sugars the last few days readings around 220. She states she can't urinate, she has some pain in the right lower back and flank. States she has been running a fever. Complains that wheezing is worse the last few days; requests prednisone burst; on 10 mg daily Past medical history, appointments, medications, allergies reviewed. Previous Medical History PAST MEDICAL HISTORY Diagnosis Date - Asthma with exacerbation - Chronic back pain - Chronic bronchitis ([facility]) 06/[address] Ponce - Chronic gastritis egd 02/07/14 - Depression [facility] - Dyslipidemia elevated TG, low HDL - H. pylori infection 06/2013 - Hypothyroidism - Impaired fasting glucose 06/2013 - Leukocytosis - Mitral valve disorders(424.0) MILD PROLAPSE NO REGUGITATION - Neuropathy ([facility]) b/l feet - NIMESH (obstructive sleep apnea) - Osteoarthritis of both knees 08/2013 - Psoriatic arthritis ([facility]) Dr. Rebecca Burgess - Rheumatoid arthritis ([facility]) - RLL pneumonia ([facility]) 04/19/13 - Tobacco use disorder - Unspecified asthma(493.90) - Unspecified essential hypertension Essential hypertension - Viral pneumonia, unspecified Pneumonia Previous Surgical History PAST SURGICAL HISTORY Procedure Laterality Date - CHOLECYSTECTOMY 1995 lap - COLONOSCOP W/ OR W/O BRSH SPEC 02/07/2014 Colonoscopy - DOPPLER ECHO HEART,COMPLETE 09/02/05 EF= 65% - EGD W/O OR W/BRUSH/WASH 02/07/2014 EGD - GASTRIC BYPASS HX 1985 - LEFT HEART CATH,PERCUTANEOUS 12/02/05 NORMAL - LUMBAR SPINE FUSION COMBINED 1992 X6 Family History FAMILY HISTORY Problem Relation Age of Onset - Hypertension Mother - Cancer Father lung 70 - Stroke Maternal Grandfather 81 - Breast Cancer Maternal Aunt Patient Allergies ALLERGIES Allergen Reactions - Macrobid [Nitrofura* Itching Hives and rash - Mri Dye [Contrast D* Vomiting constant vomiting, swell up, NEEDS premedication but still gets sick, not as bad - Ct Scan Dye [Other] Vomiting Vomiting, swelling of face: Needs premedication and gets sick, but not as bad - Fentanyl Intolerance Feels like throat is closing - Metformin GI Upset Has tried immediate release and XR formulation and unable to tolerate either - Sulfa (Sulfonamide * Itching Current Medications Current Outpatient Prescriptions on File Prior to Visit: abatacept (ORENCIA) 125 mg/mL syrg Inject 125 mg subcutaneously once each week. levothyroxine (SYNTHROID) 150 mcg tablet TAKE 1 TABLET BY MOUTH DAILY BEFORE BREAKFAST. ibuprofen (MOTRIN) 800 mg tablet Take 1 tablet by mouth every 8 hours as needed for Pain. Take with food. cyclobenzaprine (FLEXERIL) 5 mg tablet TAKE 2 TABLETS BY MOUTH EVERY MORNING AND 1 TABLET IN THE AFTERNOON AND 2 TABLETS AT NIGHT JARDIANCE 10 mg tablet TAKE 1 TABLET BY MOUTH EVERY MORNING lisinopril (ZESTRIL, PRINIVIL) 10 mg tablet TAKE 1 TABLET BY MOUTH DAILY gabapentin (NEURONTIN) 800 mg tablet TAKE 2 TABLETS BY MOUTH EVERY MORNING AND TAKE 1 AND 1/2 TABLETS IN THE AFTERNOON AND TAKE 1 TABLET AT BEDTIME COMPOUNDED PRESCRIPTION Please provide patient with new nebulizer machine and supplies.Diagnosis: Wheezing, dyspnea. albuterol (PROVENTIL) 2.5 mg /3 mL (0.083 %) nebulizer solution Use 3 mL via nebulizer every 4 hours as needed for Wheezing/Shortness of Breath. Use over 5-15minutes. pantoprazole DR (PROTONIX) 40 mg tablet TAKE 1 TABLET BY MOUTH DAILY atorvastatin (LIPITOR) 20 mg tablet TAKE 1 TABLET BY MOUTH AT BEDTIME glimepiride (AMARYL) 4 mg tablet TAKE 1 TABLET BY MOUTH DAILY COMPOUNDED PRESCRIPTION Adult diaper: Depends: Size: [id number]: N39.46 Mixed incontinence urge and stress (female)ICD-10: N39.0 Recurrent UTI (urinary tract infection). albuterol HFA (PROVENTIL HFA, VENTOLIN HFA) 90 mcg/actuation inhaler Inhale 2 Puffs as instructed every 4 hours as needed. Blood-Glucose Meter monitoring kit Glucose Meter of Choice - Kit - Dx: Type 2 DM - Uncontrolled E11.65 budesonide (PULMICORT FLEXHALER) 180 mcg/actuation aepb Inhale 2 Puffs as instructed twice daily. clonazePAM (KLONOPIN) 0.5 mg tablet Take 1 tablet by mouth twice daily. COMPOUNDED PRESCRIPTION Powerstep orthotics(L30.9) Dermatitis (primary encounter diagnosis)(72.2) Plantar fasciitis, bilatera(E11.49) Other diabetic neurological complication associated with type 2 diabetes mellitus (HCC) COMPOUNDED PRESCRIPTION Physical therapy ordered for her for a home modification evaluation to evaluate need for lift chair or other DME that will assist patient in home and promote safety. blood sugar diagnostic (BLOOD GLUCOSE TEST) test strip Test blood sugar(s) 1-2 times daily and PRN. Dx: Type 2 DM - Controlled E11.9 Insulin: No BUSPIRONE HCL (BUSPAR ORAL) Take 30 mg by mouth twice daily. Lancets lancets Test blood sugar(s) one times daily. Dx: Type 2 DM - Controlled E11.9 Insulin: No Lancets lancets Test blood sugar(s) 1-2 times daily. Dx: Type 2 DM - Controlled E11.9 Insulin: No DULoxetine (CYMBALTA) 60 mg capsule Take 120 mg by mouth once daily. predniSONE (DELTASONE) 10 mg tablet TAKE 1 TABLET BY MOUTH ONCE DAILY. No current facility-administered medications on file prior to visit. Social History Social History Marital status: Single Spouse name: Years of education: Number of children: 2 Occupational History Occupation Employer Comment [employer] Currently on Disab* Social History Main Topics Smoking status: Current Every Day Smoker Packs/day: 1.00 Years: 32.00 Types: Cigarettes Start date: 12/28/1984 Smokeless tobacco: Never Used Alcohol use: No Drug use: No Sexual activity: Not Currently EXAM: BP 124/68 Pulse 66 Temp 36.4 ?C (97.5 ?F) (Tympanic) Resp 18 Wt 125.2 kg (276 lb) LMP 01/27/2006 BMI 40.76 kg/m? General Appearance: Obese, awake and alert, speech mildly slurred but appropriate. Back:mild-moderate right flank tenderness Health Maintenance List BP CONTROLLED (<130/80) due on 12/04/1983 DILATED RETINAL EXAM due on 12/18/2016 DIABETIC FOOT EXAM due on 11/12/2017 STATIN MED ADHERENCE due on 01/27/2018 STEROID INHALER PRESCRIBED due on 01/27/2018 DIABETES MED ADHERENCE due on 01/27/2018 STEROID INHALER ADHERENCE due on 01/27/2018 MAMMOGRAM due on 03/31/2018 HBA1C due on 04/21/2018 URINE ALBUMIN:CREATININE RATIO due on 05/12/2018 PAP EVERY 5 YEARS due on 07/21/2018 HPV EVERY 5 YEARS due on 07/21/2018 LDL CHOLESTEROL due on 08/02/2018 ANNUAL PCP TEAM CHRONIC DISEASE VISIT due on 12/14/2018 COLORECTAL CANCER SCREENING,SEE MODIFIER due on 02/08/2024 DTAP,TDAP,TD(2 - Td) due on 03/20/2025 ONE PNEUMOVAX PRIOR TO AGE 65 Completed INFLUENZA Completed Data reviewed UA pos blood, leuk, nitrates Glucose 299 ASSESSMENT/PLAN: 1. Recurrent UTI (urinary tract infection) - ICD9: 599.0, ICD10: N39.0 (primary diagnosis) acute - UA positive for nitrates - Send urine for culture - Begin treatment with levaquin for 7 days - UA DIP B/O - LEVOFLOXACIN 750 MG TABLET - URINE CULTURE 2. Confusion - ICD9: 298.9, ICD10: R41.0 Monitor; if worsening seek ER eval 3. Uncontrolled type 2 diabetes mellitus without complication, without long-term current use of insulin (HCC) - ICD9: 250.02, ICD10: E11.65 - GLUCOSE, BLOOD (POC) 4. COPD with exacerbation (HCC) - ICD9: 491.21, ICD10: J44.1 - PREDNISONE 10 MG TABLET 5. Wrist pain, acute, right - ICD9: 719.43, ICD10: M25.531 - IBUPROFEN 800 MG TABLET 6. Acute foot pain, left - ICD9: 729.5, ICD10: M79.672 - IBUPROFEN 800 MG TABLET Start levaquin, may use prednisone for COPD; if not improving in the next 2 days seek ER eval I agree with the Chief Complaint, ROS, and Past Histories independently gathered by the clinical support director and the remaining scribed note accurately describes my personal service to the patient. Mignon Walsh MD The documentation for this note was completed by Magalie Mckeon Ma acting as scribe for Mignon Walsh MD. December 31, 2017 3:51 PM. PROGRESS Observed: 12/14/2017 Status: COMPLETED Source: ONYX 1:36 PM [facility] REPOSITORY HNO ID: [id number] Author: Jackie Manley [facility] Service: (none) Author Type: (none) Type: Progress Notes Filed: 12/14/2017 1:40 PM Note Text: 52 year old female here for INACTIVATED INFLUENZA VACCINE. [id number] Season Patient is identified by name and date of : [] CONTRAINDICATIONS color enhanced section Age less than 6 months? No Allergy to eggs, chicken, chicken feathers, or chicken dander? No Allergy to thimerosal (a preservative) or formaldehyde, gelatin? No History of severe reaction to any vaccine component or a previous dose of influenza vaccination? No History of Guillain-Davison Syndrome within 6 weeks after a previous influenza vaccine? No Patient is not moderately or severely ill? No Current temperature greater or equal to 100.4F? No History of Bone Marrow Transplant prior 6 months or solid organ transplant in the past 3 months ? No History of fainting after a prior injection or medical procedure? No- ? If patient has fainted in the past, the CDC recommends sitting or lying down for 15 minutes after the vaccination. [] VERIFICATION color enhanced section Was the answer Yes for any of the above contraindications? No contraindications present. Acceptable to proceed with vaccine. Patient/guardian agrees the above answers are true to the best of their knowledge? Yes Flu vaccine information sheet given? Yes See immunization activity in [facility] for details of immunizations adminstered today. Patient age: [age] year old For The 9156-0737 Flu Season 6-35 months old: Fluzone 0.25 ml - IM (Preservative Free) 3 years of age: Fluzone 0.5 ml - IM (Preservative Free) 3 years and older: Fluzone 0.5 ml- IM-(with Preservatives) 65+ years old: 2-49 years old Fluzone High-Dose 0.5 ml - IM (Preservative Free) FLUMIST- intranasal REMEMBER: If patient is less than 9 years of age and this is the first vaccine of Influenza to be received in any flu season, they should receive a second dose in one months time. Observed: 12/14/2017 Status: F Source: ONYX URINE CULTURE 1:23 PM [facility] REPOSITORY Sp. Request/Comment: - Specimen received in preservative Culture Result - 10,000 - <50,000 CFU/ml Normal urogenital rafiq Performed By: #### URCUL #### [facility] [address] [place] [address] PROGRESS Observed: 12/14/2017 Status: COMPLETED Source: ONYX 1:02 PM [facility] REPOSITORY HNO ID: [id number] Author: Dc (Yoan) Slim Service: (none) Author Type: Nurse Practitioner Type: Progress Notes Filed: 12/14/2017 1:52 PM Note Text: Chief Complaint Patient presents with: Cough: x 2 weeks - HPI Katherin Suero is a 52 year old female who presents here today for Above Complaints.. Patient presents to the office for complaints of cough, wheezing. Duration is one week. Patient is current smoker. Occasional fever in the evening, states that it was 100.1 at home. Took some tylenol today. Has been using her rescue inhaler, on average twice. afebrile today in the office. Having complaints of dysuria. States that she occasionally see blood in it. She states that she does have urgency, frequency and discomfort. She has been referred to urology, has an appointment in December. She has chronic UTIs. States that she fell on her left foot yesterday. States that she fell over the rug. No swelling. States that it hurts across the dorsal side of the foot. Patient is able to put weight on the extremity. Patient is able to walk on the extremity without Also have right wrist pain from the fall. States that she fell with her hands stretched out. History of wrist fracture of the right wrist within the past one year. Has not taken any medications for this pain as she is out of her ibuprofen. Past medical history, appointments, medications, allergies reviewed. Previous Medical History PAST MEDICAL HISTORY Diagnosis Date - Asthma with exacerbation - Chronic back pain - Chronic bronchitis (HCC) 06/[address] Ponce - Chronic gastritis egd 02/07/14 - Depression [facility] - Dyslipidemia elevated TG, low HDL - H. pylori infection 06/2013 - Hypothyroidism - Impaired fasting glucose 06/2013 - Leukocytosis - Mitral valve disorders(424.0) MILD PROLAPSE NO REGUGITATION - Neuropathy ([facility]) b/l feet - NIMESH (obstructive sleep apnea) - Osteoarthritis of both knees 08/2013 - Psoriatic arthritis ([facility]) Dr. Rebecca Burgess - Rheumatoid arthritis ([facility]) - RLL pneumonia ([facility]) 04/19/13 - Tobacco use disorder - Unspecified asthma(493.90) - Unspecified essential hypertension Essential hypertension - Viral pneumonia, unspecified Pneumonia Previous Surgical History PAST SURGICAL HISTORY Procedure Laterality Date - CHOLECYSTECTOMY 1995 lap - COLONOSCOP W/ OR W/O BRSH SPEC 02/07/2014 Colonoscopy - DOPPLER ECHO HEART,COMPLETE 09/02/05 EF= 65% - EGD W/O OR W/BRUSH/WASH 02/07/2014 EGD - GASTRIC BYPASS HX 1985 - LEFT HEART CATH,PERCUTANEOUS 12/02/05 NORMAL - LUMBAR SPINE FUSION COMBINED 1992 X6 Family History FAMILY HISTORY Problem Relation Age of Onset - Hypertension Mother - Cancer Father lung 70 - Stroke Maternal Grandfather 81 - Breast Cancer Maternal Aunt Patient Allergies ALLERGIES Allergen Reactions - Macrobid [Nitrofura* Itching Hives and rash - Mri Dye [Contrast D* Vomiting constant vomiting, swell up, NEEDS premedication but still gets sick, not as bad - Ct Scan Dye [Other] Vomiting Vomiting, swelling of face: Needs premedication and gets sick, but not as bad - Fentanyl Intolerance Feels like throat is closing - Metformin GI Upset Has tried immediate release and XR formulation and unable to tolerate either - Sulfa (Sulfonamide * Itching Current Medications Current Outpatient Prescriptions on File Prior to Visit: abatacept (ORENCIA) 125 mg/mL syrg Inject 125 mg subcutaneously once each week. cyclobenzaprine (FLEXERIL) 5 mg tablet TAKE 2 TABLETS BY MOUTH EVERY MORNING AND 1 TABLET IN THE AFTERNOON AND 2 TABLETS AT NIGHT JARDIANCE 10 mg tablet TAKE 1 TABLET BY MOUTH EVERY MORNING lisinopril (ZESTRIL, PRINIVIL) 10 mg tablet TAKE 1 TABLET BY MOUTH DAILY gabapentin (NEURONTIN) 800 mg tablet TAKE 2 TABLETS BY MOUTH EVERY MORNING AND TAKE 1 AND 1/2 TABLETS IN THE AFTERNOON AND TAKE 1 TABLET AT BEDTIME COMPOUNDED PRESCRIPTION Please provide patient with new nebulizer machine and supplies.Diagnosis: Wheezing, dyspnea. albuterol (PROVENTIL) 2.5 mg /3 mL (0.083 %) nebulizer solution Use 3 mL via nebulizer every 4 hours as needed for Wheezing/Shortness of Breath. Use over 5-15minutes. predniSONE (DELTASONE) 10 mg tablet TAKE 1 TABLET BY MOUTH ONCE DAILY. levothyroxine (SYNTHROID) 150 mcg tablet TAKE 1 TABLET BY MOUTH DAILY BEFORE BREAKFAST. pantoprazole DR (PROTONIX) 40 mg tablet TAKE 1 TABLET BY MOUTH DAILY atorvastatin (LIPITOR) 20 mg tablet TAKE 1 TABLET BY MOUTH AT BEDTIME glimepiride (AMARYL) 4 mg tablet TAKE 1 TABLET BY MOUTH DAILY COMPOUNDED PRESCRIPTION Adult diaper: Depends: Size: [id number]: N39.46 Mixed incontinence urge and stress (female)ICD-10: N39.0 Recurrent UTI (urinary tract infection). ibuprofen (MOTRIN) 800 mg tablet Take 1 tablet by mouth every 8 hours as needed for Pain. Take with food. albuterol HFA (PROVENTIL HFA, VENTOLIN HFA) 90 mcg/actuation inhaler Inhale 2 Puffs as instructed every 4 hours as needed. Blood-Glucose Meter monitoring kit Glucose Meter of Choice - Kit - Dx: Type 2 DM - Uncontrolled E11.65 budesonide (PULMICORT FLEXHALER) 180 mcg/actuation aepb Inhale 2 Puffs as instructed twice daily. clonazePAM (KLONOPIN) 0.5 mg tablet Take 1 tablet by mouth twice daily. COMPOUNDED PRESCRIPTION Powerstep orthotics(L30.9) Dermatitis (primary encounter diagnosis)(72.2) Plantar fasciitis, bilatera(E11.49) Other diabetic neurological complication associated with type 2 diabetes mellitus (HCC) COMPOUNDED PRESCRIPTION Physical therapy ordered for her for a home modification evaluation to evaluate need for lift chair or other DME that will assist patient in home and promote safety. blood sugar diagnostic (BLOOD GLUCOSE TEST) test strip Test blood sugar(s) 1-2 times daily and PRN. Dx: Type 2 DM - Controlled E11.9 Insulin: No BUSPIRONE HCL (BUSPAR ORAL) Take 30 mg by mouth twice daily. Lancets lancets Test blood sugar(s) one times daily. Dx: Type 2 DM - Controlled E11.9 Insulin: No Lancets lancets Test blood sugar(s) 1-2 times daily. Dx: Type 2 DM - Controlled E11.9 Insulin: No DULoxetine (CYMBALTA) 60 mg capsule Take 120 mg by mouth once daily. No current facility-administered medications on file prior to visit. Social History Social History Marital status: Single Spouse name: Years of education: Number of children: 2 Occupational History Occupation Employer Comment [employer] Currently on Disab* Social History Main Topics Smoking status: Current Every Day Smoker Packs/day: 1.00 Years: 32.00 Types: Cigarettes Start date: 12/28/1984 Smokeless tobacco: Never Used Alcohol use: No Drug use: No Sexual activity: Not Currently REVIEW OF SYSTEMS: as above ? Reviewed relevant PMHx, PSHx, Social Hx, current medications and allergies. EXAM: BP 138/94 Pulse 102 Temp 36.8 ?C (98.2 ?F) (Tympanic) Wt 122 kg (269 lb) LMP 01/27/2006 SpO2 95% BMI 39.72 kg/m? General Appearance: Well appearing, alert, in no acute distress, well-hydrated, well nourished. and Obese. Head: Normocephalic, no masses, lesions, tenderness or abnormalities. Eyes: Anicteric sclera. Pupils are equally round and reactive to light. Extraocular movements are intact. . Ears: External ears normal, canals clear. Nose/Sinuses: Nares normal, septum midline, mucosa normal, no drainage or sinus tenderness. Oropharynx: Lips, mucosa, and tongue normal, teeth and gums normal, oropharynx normal. Lungs: Positive findings: wheezing expiratory lower bilateral posterior lung bases. Heart: RRR without murmur, gallop, or rubs. No ectopy. Musculoskeletal: right wrist: Patient is unable to move it through the range of motion exercises, plate straightener strength is decreased, patient has radial and ulnar joint tenderness. left ankle: Patient has no joint line tenderness. Nose is present. She has mild to moderate tenderness of the dorsal side of the first through fifth metatarsals, also some lateral left foot tenderness with palpation. Is able to move her ankle through our ROM exercise. Health Maintenance List DILATED RETINAL EXAM due on 12/18/2016 DIABETIC FOOT EXAM due on 11/12/2017 INFLUENZA(1) due on 11/27/2017 STATIN MED ADHERENCE due on 12/27/2017 STEROID INHALER PRESCRIBED due on 12/27/2017 DIABETES MED ADHERENCE due on 12/27/2017 STEROID INHALER ADHERENCE due on 12/27/2017 MAMMOGRAM due on 03/31/2018 HBA1C due on 04/21/2018 URINE ALBUMIN:CREATININE RATIO due on 05/12/2018 PAP EVERY 5 YEARS due on 07/21/2018 HPV EVERY 5 YEARS due on 07/21/2018 LDL CHOLESTEROL due on 08/02/2018 ANNUAL PCP TEAM CHRONIC DISEASE VISIT due on 10/19/2018 BP CONTROLLED (<130/80) due on 10/19/2018 COLORECTAL CANCER SCREENING,SEE MODIFIER due on 02/08/2024 DTAP,TDAP,TD(2 - Td) due on 03/20/2025 ONE PNEUMOVAX PRIOR TO AGE 65 Completed Data reviewed Component Latest Ref Rng AND Units 08/02/2017 10/19/2017 Protein, Total 6.3 - 8.0 g/dL 7.1 Albumin 3.9 - 4.9 g/dL 3.9 Calcium 8.5 - 10.2 mg/dL 9.0 9.1 Bilirubin, Total 0.2 - 1.3 mg/dL 0.3 Alkaline Phosphatase 32 - 117 U/L 68 AST 13 - 35 U/L 12 (L) Glucose 74 - 99 mg/dL 165 (H) 124 (H) BUN 7 - 21 mg/dL 6 (L) 5 (L) Creatinine 0.58 - 0.96 mg/dL 0.72 0.67 Sodium 136 - 144 mmol/L 138 140 Potassium 3.7 - 5.1 mmol/L 3.7 4.2 Chloride 97 - 105 mmol/L 95 (L) 103 CO2 22 - 30 mmol/L 25 22 Anion Gap 9 - 18 mmol/L 18 15 ALT 7 - 38 U/L 11 eGFR- >60 >60 eGFR-All Other Races . >60 >60 Cholesterol, Total <200 mg/dL 149 Triglyceride <150 mg/dL 203 (H) HDL Cholesterol >39 mg/dL 38 (L) LDL Cholesterol <100 mg/dL 70 Non HDL Cholesterol <130 mg/dL 111 Fasting Time hrs 12 VLDL Cholesterol <30 mg/dL 41 (H) TC:HDL Ratio <5.10 3.92 LDL:HDL Ratio <2.54 1.84 Hemoglobin A1C 4.3 - 5.6 % 6.8 (H) Estimated Average Glucose mg/dL 148 TSH 0.400 - 5.500 uU/mL 5.100 Component Latest Ref Rng AND Units 12/14/2017 Glucose, Urine Neg mg/dL neg Bilirubin, Urine Neg neg Ketones, Urine Neg neg Specific [place], Ur 1.005 - 1.030 1.020 Hemoglobin/Blood,Ur Neg neg pH, Urine 4.5 - 8.0 6.0 Protein, Urine Neg mg/dL trace Urobilinogen, Urine Normal (<1.1) EU normal Nitrites Neg neg Leukocytes Neg neg Color/Appearance comment: bright yellow Quality Check yes/no Yes ASSESSMENT/PLAN: 1. Dysuria - ICD9: 788.1, ICD10: R30.0 (primary diagnosis) chronic - UA positive for trace protein elevated SG. Discussed with patient that she should increase her fluid intake. She will continue with urology consultation. - Send urine for culture - UA DIP B/O - URINE CULTURE 2. COPD with exacerbation (HCC) - ICD9: 491.21, ICD10: J44.1 - patient is afebrile at this time. Does have some bilateral wheezing in the lower lobes we will do filled his a prednisone. - PREDNISONE 10 MG TABLET 3. Tobacco abuse - ICD9: 305.1, ICD10: Z72.0 - Cessation encouraged. - Physiologic and physical aspects of tobacco addiction as well as strategies for quitting were discussed. - Counseling was given focusing on the harmful effects of this addiction especially given the patient's medical condition(s) which will be worsened because of the chemicals in tobacco. - had a discussion involving the patient needing to stop smoking with recurrent COPD exacerbations. Patient states that she is not nourished and stopping [place] due to not wanting to go through nicotine withdrawal. 4. Wrist pain, acute, right - ICD9: 719.43, ICD10: M25.531 - rule out fracture, probable contusion. advised ice rest and ibuprofen.discussed removing throw rugs from her residence. - XR FOOT GENERAL 3V AP/LAT/OBL LT - IBUPROFEN 800 MG TABLET 5. Acute foot pain, left - ICD9: 729.5, ICD10: M79.672 - rule out fracture, probable contusion. advised ice rest and ibuprofen. - XR WRIST GENERAL 3V PA/LAT/OBL RT - IBUPROFEN 800 MG TABLET 6. Uncontrolled type 2 diabetes mellitus without complication, without long-term current use of insulin (HCC) - ICD9: 250.02, ICD10: E11.65 - BASIC METABOLIC PNL - HGB A1C 7. Essential hypertension - ICD9: 401.9, ICD10: I10 - good control - Continue current medication(s) - Recommended regular aerobic exercise. - Recommend home blood pressure monitoring, to bring results in on next visit - Goal of BP <130/80 - BASIC METABOLIC PNL follow-up in one month for routine care check with labs prior. We will send urine culture as she has had multiple UTIs in the past they have grown bacteria. Dc Smalls APRN.CNP CNOV Observed: 12/14/2017 Status: COMPLETED Source: ONYX 1:00 PM [facility] REPOSITORY [facility] KATHERIN SUERO ([id number]) 1965 F [facility] Date Time Provider Department 12/14/17 1:00 PM [facility] During your visit today, we recorded the following information about you: Temperature Pulse Blood pressure Weight 98.2 degrees 102/minute 138/94 122 kg Dc Smalls APRN.CNP 12/14/2017 1:52 PM Addendum Chief Complaint Patient presents with: Cough: x 2 weeks - HPI Katherin Suero is a 52 year old female who presents here today for Above Complaints.. Patient presents to the office for complaints of cough, wheezing. Duration is one week. Patient is current smoker. Occasional fever in the evening, states that it was 100.1 at home. Took some tylenol today. Has been using her rescue inhaler, on average twice. afebrile today in the office. Having complaints of dysuria. States that she occasionally see blood in it. She states that she does have urgency, frequency and discomfort. She has been referred to urology, has an appointment in December. She has chronic UTIs. States that she fell on her left foot yesterday. States that she fell over the rug. No swelling. States that it hurts across the dorsal side of the foot. Patient is able to put weight on the extremity. Patient is able to walk on the extremity without Also have right wrist pain from the fall. States that she fell with her hands stretched out. History of wrist fracture of the right wrist within the past one year. Has not taken any medications for this pain as she is out of her ibuprofen. Past medical history, appointments, medications, allergies reviewed. Previous Medical History PAST MEDICAL HISTORY Diagnosis Date - Asthma with exacerbation - Chronic back pain - Chronic bronchitis ([facility]) 06/[address] Ponce - Chronic gastritis egd 02/07/14 - Depression Dr. Jameson [facility] - Dyslipidemia elevated TG, low HDL - H. pylori infection 06/2013 - Hypothyroidism - Impaired fasting glucose 06/2013 - Leukocytosis - Mitral valve disorders(424.0) MILD PROLAPSE NO REGUGITATION - Neuropathy ([facility]) b/l feet - NIMESH (obstructive sleep apnea) - Osteoarthritis of both knees 08/2013 - Psoriatic arthritis ([facility]) Dr. Macias- Jenifer - Rheumatoid arthritis ([facility]) - RLL pneumonia ([facility]) 04/19/13 - Tobacco use disorder - Unspecified asthma(493.90) - Unspecified essential hypertension Essential hypertension - Viral pneumonia, unspecified Pneumonia Previous Surgical History PAST SURGICAL HISTORY Procedure Laterality Date - CHOLECYSTECTOMY 1995 lap - COLONOSCOP W/ OR W/O BRSH SPEC 02/07/2014 Colonoscopy - DOPPLER ECHO HEART,COMPLETE 09/02/05 EF= 65% - EGD W/O OR W/BRUSH/WASH 02/07/2014 EGD - GASTRIC BYPASS HX 1985 - LEFT HEART CATH,PERCUTANEOUS 12/02/05 NORMAL - LUMBAR SPINE FUSION COMBINED 1992 X6 Family History FAMILY HISTORY Problem Relation Age of Onset - Hypertension Mother - Cancer Father lung 70 - Stroke Maternal Grandfather 81 - Breast Cancer Maternal Aunt Patient Allergies ALLERGIES Allergen Reactions - Macrobid [Nitrofura* Itching Hives and rash - Mri Dye [Contrast D* Vomiting constant vomiting, swell up, NEEDS premedication but still gets sick, not as bad - Ct Scan Dye [Other] Vomiting Vomiting, swelling of face: Needs premedication and gets sick, but not as bad - Fentanyl Intolerance Feels like throat is closing - Metformin GI Upset Has tried immediate release and XR formulation and unable to tolerate either - Sulfa (Sulfonamide * Itching Current Medications Current Outpatient Prescriptions on File Prior to Visit: abatacept (ORENCIA) 125 mg/mL syrg Inject 125 mg subcutaneously once each week. cyclobenzaprine (FLEXERIL) 5 mg tablet TAKE 2 TABLETS BY MOUTH EVERY MORNING AND 1 TABLET IN THE AFTERNOON AND 2 TABLETS AT NIGHT JARDIANCE 10 mg tablet TAKE 1 TABLET BY MOUTH EVERY MORNING lisinopril (ZESTRIL, PRINIVIL) 10 mg tablet TAKE 1 TABLET BY MOUTH DAILY gabapentin (NEURONTIN) 800 mg tablet TAKE 2 TABLETS BY MOUTH EVERY MORNING AND TAKE 1 AND 1/2 TABLETS IN THE AFTERNOON AND TAKE 1 TABLET AT BEDTIME COMPOUNDED PRESCRIPTION Please provide patient with new nebulizer machine and supplies.Diagnosis: Wheezing, dyspnea. albuterol (PROVENTIL) 2.5 mg /3 mL (0.083 %) nebulizer solution Use 3 mL via nebulizer every 4 hours as needed for Wheezing/Shortness of Breath. Use over 5-15minutes. predniSONE (DELTASONE) 10 mg tablet TAKE 1 TABLET BY MOUTH ONCE DAILY. levothyroxine (SYNTHROID) 150 mcg tablet TAKE 1 TABLET BY MOUTH DAILY BEFORE BREAKFAST. pantoprazole DR (PROTONIX) 40 mg tablet TAKE 1 TABLET BY MOUTH DAILY atorvastatin (LIPITOR) 20 mg tablet TAKE 1 TABLET BY MOUTH AT BEDTIME glimepiride (AMARYL) 4 mg tablet TAKE 1 TABLET BY MOUTH DAILY COMPOUNDED PRESCRIPTION Adult diaper: Depends: Size: [id number]: N39.46 Mixed incontinence urge and stress (female)ICD-10: N39.0 Recurrent UTI (urinary tract infection). ibuprofen (MOTRIN) 800 mg tablet Take 1 tablet by mouth every 8 hours as needed for Pain. Take with food. albuterol HFA (PROVENTIL HFA, VENTOLIN HFA) 90 mcg/actuation inhaler Inhale 2 Puffs as instructed every 4 hours as needed. Blood-Glucose Meter monitoring kit Glucose Meter of Choice - Kit - Dx: Type 2 DM - Uncontrolled E11.65 budesonide (PULMICORT FLEXHALER) 180 mcg/actuation aepb Inhale 2 Puffs as instructed twice daily. clonazePAM (KLONOPIN) 0.5 mg tablet Take 1 tablet by mouth twice daily. COMPOUNDED PRESCRIPTION Powerstep orthotics(L30.9) Dermatitis (primary encounter diagnosis)(72.2) Plantar fasciitis, bilatera(E11.49) Other diabetic neurological complication associated with type 2 diabetes mellitus (HCC) COMPOUNDED PRESCRIPTION Physical therapy ordered for her for a home modification evaluation to evaluate need for lift chair or other DME that will assist patient in home and promote safety. blood sugar diagnostic (BLOOD GLUCOSE TEST) test strip Test blood sugar(s) 1-2 times daily and PRN. Dx: Type 2 DM - Controlled E11.9 Insulin: No BUSPIRONE HCL (BUSPAR ORAL) Take 30 mg by mouth twice daily. Lancets lancets Test blood sugar(s) one times daily. Dx: Type 2 DM - Controlled E11.9 Insulin: No Lancets lancets Test blood sugar(s) 1-2 times daily. Dx: Type 2 DM - Controlled E11.9 Insulin: No DULoxetine (CYMBALTA) 60 mg capsule Take 120 mg by mouth once daily. No current facility-administered medications on file prior to visit. Social History Social History Marital status: Single Spouse name: Years of education: Number of children: 2 Occupational History Occupation Employer Comment [employer] Currently on Disab* Social History Main Topics Smoking status: Current Every Day Smoker Packs/day: 1.00 Years: 32.00 Types: Cigarettes Start date: 12/28/1984 Smokeless tobacco: Never Used Alcohol use: No Drug use: No Sexual activity: Not Currently REVIEW OF SYSTEMS: as above ? Reviewed relevant PMHx, PSHx, Social Hx, current medications and allergies. EXAM: BP 138/94 Pulse 102 Temp 36.8 ?C (98.2 ?F) (Tympanic) Wt 122 kg (269 lb) LMP 01/27/2006 SpO2 95% BMI 39.72 kg/m? General Appearance: Well appearing, alert, in no acute distress, well-hydrated, well nourished. and Obese. Head: Normocephalic, no masses, lesions, tenderness or abnormalities. Eyes: Anicteric sclera. Pupils are equally round and reactive to light. Extraocular movements are intact. . Ears: External ears normal, canals clear. Nose/Sinuses: Nares normal, septum midline, mucosa normal, no drainage or sinus tenderness. Oropharynx: Lips, mucosa, and tongue normal, teeth and gums normal, oropharynx normal. Lungs: Positive findings: wheezing expiratory lower bilateral posterior lung bases. Heart: RRR without murmur, gallop, or rubs. No ectopy. Musculoskeletal: right wrist: Patient is unable to move it through the range of motion exercises, plate straightener strength is decreased, patient has radial and ulnar joint tenderness. left ankle: Patient has no joint line tenderness. Nose is present. She has mild to moderate tenderness of the dorsal side of the first through fifth metatarsals, also some lateral left foot tenderness with palpation. Is able to move her ankle through our ROM exercise. Health Maintenance List DILATED RETINAL EXAM due on 12/18/2016 DIABETIC FOOT EXAM due on 11/12/2017 INFLUENZA(1) due on 11/27/2017 STATIN MED ADHERENCE due on 12/27/2017 STEROID INHALER PRESCRIBED due on 12/27/2017 DIABETES MED ADHERENCE due on 12/27/2017 STEROID INHALER ADHERENCE due on 12/27/2017 MAMMOGRAM due on 03/31/2018 HBA1C due on 04/21/2018 URINE ALBUMIN:CREATININE RATIO due on 05/12/2018 PAP EVERY 5 YEARS due on 07/21/2018 HPV EVERY 5 YEARS due on 07/21/2018 LDL CHOLESTEROL due on 08/02/2018 ANNUAL PCP TEAM CHRONIC DISEASE VISIT due on 10/19/2018 BP CONTROLLED (<130/80) due on 10/19/2018 COLORECTAL CANCER SCREENING,SEE MODIFIER due on 02/08/2024 DTAP,TDAP,TD(2 - Td) due on 03/20/2025 ONE PNEUMOVAX PRIOR TO AGE 65 Completed Data reviewed Component Latest Ref Rng AND Units 08/02/2017 10/19/2017 Protein, Total 6.3 - 8.0 g/dL 7.1 Albumin 3.9 - 4.9 g/dL 3.9 Calcium 8.5 - 10.2 mg/dL 9.0 9.1 Bilirubin, Total 0.2 - 1.3 mg/dL 0.3 Alkaline Phosphatase 32 - 117 U/L 68 AST 13 - 35 U/L 12 (L) Glucose 74 - 99 mg/dL 165 (H) 124 (H) BUN 7 - 21 mg/dL 6 (L) 5 (L) Creatinine 0.58 - 0.96 mg/dL 0.72 0.67 Sodium 136 - 144 mmol/L 138 140 Potassium 3.7 - 5.1 mmol/L 3.7 4.2 Chloride 97 - 105 mmol/L 95 (L) 103 CO2 22 - 30 mmol/L 25 22 Anion Gap 9 - 18 mmol/L 18 15 ALT 7 - 38 U/L 11 eGFR- >60 >60 eGFR-All Other Races . >60 >60 Cholesterol, Total <200 mg/dL 149 Triglyceride <150 mg/dL 203 (H) HDL Cholesterol >39 mg/dL 38 (L) LDL Cholesterol <100 mg/dL 70 Non HDL Cholesterol <130 mg/dL 111 Fasting Time hrs 12 VLDL Cholesterol <30 mg/dL 41 (H) TC:HDL Ratio <5.10 3.92 LDL:HDL Ratio <2.54 1.84 Hemoglobin A1C 4.3 - 5.6 % 6.8 (H) Estimated Average Glucose mg/dL 148 TSH 0.400 - 5.500 uU/mL 5.100 Component Latest Ref Rng AND Units 12/14/2017 Glucose, Urine Neg mg/dL neg Bilirubin, Urine Neg neg Ketones, Urine Neg neg Specific [place], Ur 1.005 - 1.030 1.020 Hemoglobin/Blood,Ur Neg neg pH, Urine 4.5 - 8.0 6.0 Protein, Urine Neg mg/dL trace Urobilinogen, Urine Normal (<1.1) EU normal Nitrites Neg neg Leukocytes Neg neg Color/Appearance comment: bright yellow Quality Check yes/no Yes ASSESSMENT/PLAN: 1. Dysuria - ICD9: 788.1, ICD10: R30.0 (primary diagnosis) chronic - UA positive for trace protein elevated SG. Discussed with patient that she should increase her fluid intake. She will continue with urology consultation. - Send urine for culture - UA DIP B/O - URINE CULTURE 2. COPD with exacerbation (HCC) - ICD9: 491.21, ICD10: J44.1 - patient is afebrile at this time. Does have some bilateral wheezing in the lower lobes we will do filled his a prednisone. - PREDNISONE 10 MG TABLET 3. Tobacco abuse - ICD9: 305.1, ICD10: Z72.0 - Cessation encouraged. - Physiologic and physical aspects of tobacco addiction as well as strategies for quitting were discussed. - Counseling was given focusing on the harmful effects of this addiction especially given the patient's medical condition(s) which will be worsened because of the chemicals in tobacco. - had a discussion involving the patient needing to stop smoking with recurrent COPD exacerbations. Patient states that she is not nourished and stopping [place] due to not wanting to go through nicotine withdrawal. 4. Wrist pain, acute, right - ICD9: 719.43, ICD10: M25.531 - rule out fracture, probable contusion. advised ice rest and ibuprofen.discussed removing throw rugs from her residence. - XR FOOT GENERAL 3V AP/LAT/OBL LT - IBUPROFEN 800 MG TABLET 5. Acute foot pain, left - ICD9: 729.5, ICD10: M79.672 - rule out fracture, probable contusion. advised ice rest and ibuprofen. - XR WRIST GENERAL 3V PA/LAT/OBL RT - IBUPROFEN 800 MG TABLET 6. Uncontrolled type 2 diabetes mellitus without complication, without long-term current use of insulin (HCC) - ICD9: 250.02, ICD10: E11.65 - BASIC METABOLIC PNL - HGB A1C 7. Essential hypertension - ICD9: 401.9, ICD10: I10 - good control - Continue current medication(s) - Recommended regular aerobic exercise. - Recommend home blood pressure monitoring, to bring results in on next visit - Goal of BP <130/80 - BASIC METABOLIC PNL follow-up in one month for routine care check with labs prior. We will send urine culture as she has had multiple UTIs in the past they have grown bacteria. Dc Smalls APRN.YOAN Smalls APRN.MAP DRAFTER 12/14/2017 1:23 PM Signed please schedule a one-month follow-up for your diabetes and hypertension care with labs prior to the appointment. Jackie Manley [facility] 12/14/2017 1:40 PM Signed 52 year old female here for INACTIVATED INFLUENZA VACCINE. [id number] Season Patient is identified by name and date of : [] CONTRAINDICATIONS color enhanced section Age less than 6 months? No Allergy to eggs, chicken, chicken feathers, or chicken dander? No Allergy to thimerosal (a preservative) or formaldehyde, gelatin? No History of severe reaction to any vaccine component or a previous dose of influenza vaccination? No History of Guillain-Davison Syndrome within 6 weeks after a previous influenza vaccine? No Patient is not moderately or severely ill? No Current temperature greater or equal to 100.4F? No History of Bone Marrow Transplant prior 6 months or solid organ transplant in the past 3 months ? No History of fainting after a prior injection or medical procedure? No- ? If patient has fainted in the past, the CDC recommends sitting or lying down for 15 minutes after the vaccination. [] VERIFICATION color enhanced section Was the answer Yes for any of the above contraindications? No contraindications present. Acceptable to proceed with vaccine. Patient/guardian agrees the above answers are true to the best of their knowledge? Yes Flu vaccine information sheet given? Yes See immunization activity in [facility] for details of immunizations adminstered today. Patient age: [age] year old For The [id number] Flu Season 6-35 months old: Fluzone 0.25 ml - IM (Preservative Free) 3 years of age: Fluzone 0.5 ml - IM (Preservative Free) 3 years and older: Fluzone 0.5 ml- IM-(with Preservatives) 65+ years old: 2-49 years old Fluzone High-Dose 0.5 ml - IM (Preservative Free) FLUMIST- intranasal REMEMBER: If patient is less than 9 years of age and this is the first vaccine of Influenza to be received in any flu season, they should receive a second dose in one months time. Referring Provider: SELF [[id number]] Allergies As of Date: 12/14/2017 Noted Allergy Reaction MACROBID (NITROFURANTOIN MONOHYD/*11/07/2015 9 - Itching Comments: Hives and rash MRI DYE (CONTRAST DYE) 08/02/2009 11 - Vomiting Comments: constant vomiting, swell up, NEEDS premedication but still gets sick, not as bad ct scan dye [Other] 08/02/2009 11 - Vomiting Comments: Vomiting, swelling of face: Needs premedication and gets sick, but not as bad FENTANYL 05/09/2013 5 - Intolerance Comments: Feels like throat is closing METFORMIN 08/20/2015 8 - GI Upset Comments: Has tried immediate release and XR formulation and unable to tolerate either SULFA (SULFONAMIDE ANTIBIOTICS) 05/09/2013 9 - Itching Date Reviewed: 12/14/2017 Reviewed by: Jackie Manley Job Estimator - Fully Assessed Reason for Visit: Cough [28] Cmt: x 2 weeks - Imm/Inj [58] Cmt: Flu Vaccine Reason For Visit History Recorded Primary Visit Diagnosis:Dysuria [R30.0] Other Visit Diagnoses:COPD with exacerbation (HCC) [J44.1] Tobacco abuse [Z72.0] Wrist pain, acute, right [M25.531] Acute foot pain, left [M79.672] Uncontrolled type 2 diabetes mellitus without complication, without long-term current use of insulin ([facility]) [E11.65] Essential hypertension [I10] Need for vaccination [Z23] Order(s):UA DIP B/O [[id number]] Order #: [id number] XR FOOT GENERAL 3V AP/LAT/OBL LT [[id number]] Order #: [id number] FUTURE XR WRIST GENERAL 3V PA/LAT/OBL RT [[id number]] Order #: [id number] FUTURE ibuprofen (MOTRIN) 800 mg tabletTake 1 tablet by mouth every 8 hours as needed for Pain. Take with food.Disp: 60 tabletRfl: 2 predniSONE (DELTASONE) 10 mg tabletTake 4 tabs daily for 3 days, then 2 tabs daily for 3 days, then 1 tab daily for 3 days with food.Disp: 21 tabletRfl: 0 BASIC METABOLIC PNL [SQBMP] Order #: [id number] FUTURE HGB A1C [YQHIR7H] Order #: [id number] FUTURE URINE CULTURE [SQURCUL] Order #: [id number] INFLUENZA VACCINE QUADRIVALENT AGE 3 YRS PLUS + IM [[id number]] Order #: [id number] Prescriptions as of 12/14/2017 Sig: IBUPROFEN 800 MG TABLET Take 1 tablet by mouth every * ABATACEPT 125 MG/ML SUBCUTANE* Inject 125 mg subcutaneously * CYCLOBENZAPRINE 5 MG TABLET TAKE 2 TABLETS BY MOUTH EVERY* JARDIANCE 10 MG TABLET TAKE 1 TABLET BY MOUTH EVERY * LISINOPRIL 10 MG TABLET TAKE 1 TABLET BY MOUTH DAILY GABAPENTIN 800 MG TABLET TAKE 2 TABLETS BY MOUTH EVERY* COMPOUNDED PRESCRIPTION Please provide patient with n* ALBUTEROL SULFATE 2.5 MG/3 ML* Use 3 mL via nebulizer every * PREDNISONE 10 MG TABLET TAKE 1 TABLET BY MOUTH ONCE D* LEVOTHYROXINE 150 MCG TABLET TAKE 1 TABLET BY MOUTH DAILY * PANTOPRAZOLE 40 MG TABLET,DEL* TAKE 1 TABLET BY MOUTH DAILY ATORVASTATIN 20 MG TABLET TAKE 1 TABLET BY MOUTH AT BED* GLIMEPIRIDE 4 MG TABLET TAKE 1 TABLET BY MOUTH DAILY COMPOUNDED PRESCRIPTION Adult diaper: Depends: Size:* ALBUTEROL SULFATE HFA 90 MCG/* Inhale 2 Puffs as instructed * BLOOD-GLUCOSE METER KIT Glucose Meter of Choice - Kit* BUDESONIDE 180 MCG/ACTUATION * Inhale 2 Puffs as instructed * CLONAZEPAM 0.5 MG TABLET Take 1 tablet by mouth twice * COMPOUNDED PRESCRIPTION Powerstep orthotics (L30.9* COMPOUNDED PRESCRIPTION Physical therapy ordered for * BLOOD SUGAR DIAGNOSTIC STRIPS Test blood sugar(s) 1- 2 time* BUSPAR ORAL Take 30 mg by mouth twice tyrell* LANCETS Test blood sugar(s) one times* LANCETS Test blood sugar(s) 1- 2 times* DULOXETINE 60 MG CAPSULE,SERG* Take 120 mg by mouth once tyrell* PREDNISONE 10 MG TABLET Take 4 tabs daily for 3 days,* Problem List As Of Date 12/14/2017 Noted Resolved Shortness of breath [R06.02] 07/01/2015 Asthma with exacerbation [J45.901] 07/01/2015 Viral pneumonia, unspecified [J12.9] 07/01/2015 More... MITRAL VALVE DISORDER [I05.9] Tobacco use disorder [F17.200] 07/01/2015 Essential hypertension [I10] More... MIXED HYPERLIPIDEMIA [E78.2] More... COUGH [R05] INVALID FOR* INCONTINENCE W/O SENSORY AWARENESS [N39.42] INVALID FOR*07/01/2015 URGE AND STRESS MIXED INCONTINENCE [N39.46] INVALID FOR* Morbid obesity with BMI of 45.0-49.9, adult [E6*INVALID FOR*07/01/2015 Tobacco abuse [Z72.0] INVALID FOR* Hyperlipidemia [E78.5] INVALID FOR*04/10/2016 Fibromyalgia [M79.7] INVALID FOR* Hypothyroidism [E03.9] INVALID FOR*07/01/2015 Asthma with COPD ([facility]) [J44.9] INVALID FOR*07/01/2015 RLL pneumonia [J18.1] INVALID FOR*04/10/2016 GERD (gastroesophageal reflux disease) [K21.9] INVALID FOR* H. 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*INVALID FOR* NIMESH (obstructive sleep apnea) [G47.33] INVALID FOR* Asthma [J45.909] INVALID FOR* Seronegative rheumatoid arthritis ([facility]) [M06.00]INVALID FOR* Controlled substance agreement signed [Z79.899] INVALID FOR* Bladder spasms [N32.89] INVALID FOR* Uncontrolled type 2 diabetes mellitus without c*INVALID FOR* Recurrent UTI [N39.0] INVALID FOR* Long-term use of immunosuppressant medication [*INVALID FOR* Other instructions from your clinician: please schedule a one-month follow-up for your diabetes and hypertension care with labs prior to the appointment. Prescriptions ordered this encounter Disp Refills Start End IBUPROFEN 800 MG TABLET 60 t* 2 12/14/2017 Route: ORAL Sig: Take 1 tablet by mouth every 8 hours as needed for Pain. Take with food. PREDNISONE 10 MG TABLET 21 t* 0 12/14/2017 12/23/2017 Sig: Take 4 tabs daily for 3 days, then 2 tabs daily for 3 days, then 1 tab daily for 3 days with food. Medications Discontinued During This Encounter ibuprofen (MOTRIN) 800 mg tablet 60 t* 2 06/08/2017 12/14/2017 Route: ORAL Sig: Take 1 tablet by mouth every 8 hours as needed for Pain. Take with food. Disc: Reason for discontinue is not on file. Disposition: Return in about 1 month (around 01/13/2018) for Diabetes, HTN f/u. Follow-up and Disposition History Recorded Encounter Status:Closed by LUISA HANDJACKIE Jean on 12/14/17 EMERGENCY DEPARTMENT Observed: 12/05/2017 Status: F Source: [place] SUMMARY 9:39 PM [facility] [place] [facility] Medical Records Department [address] [place] [address] Emergency Department Summary 11/29/17 1613 MR#: [id number] Acct: [id number] Name: KATHERIN SUERO Rep #: [id number] : 1965 51 From: Tk Almanza DO PCP: Mignon Walsh MD Status: DEP ER - ER Visit Summary Date of Service: 11/29/17 Chief Complaint: Anxiety History of Present Illness: The patient is a 51 F who presents with increasing anxiety over the past 2 weeks. Patient states she has been out of her Klonopin for the past 2 days. Patient states her anxiety became worse today. Patient states she got an argument with her boyfriend. Patient feels that this is what precipitated her anxiety. Patient also admits to some dysuria and foul odor to her urine. Patient states she has a history of neurogenic bladder and frequent urinary tract infections. Patient denies any fevers or chills. Patient does admit to some nausea and vomiting. Patient states she is only vomiting up clear liquids. Patient denies any diarrhea. Physical Examination: Vital signs are stable. Patient is afebrile. Patient is in no acute distress. Patient has a anxious mood and is tearful at times. Patient denies any suicidal or homicidal ideations. Oral mucosa is pink and moist. Neck is supple. There is no JVD noted. Heart was regular rate and rhythm. Lungs are clear and equal bilaterally. There is good respiratory effort noted. Abdomen is soft. Bowel sounds are normal. There is no tenderness. There is no rebound or guarding noted. Cranial nerves II through XII are intact. There are no focal motor or sensory deficits noted. Test Results: Urinalysis was obtained. Emergency Department Course and Treatment: Patient was given a dose of Klonopin here. Patient was instructed to follow-up with her primary care physician for further management of her anxiety medications. Patient understood and was agreeable with the plan. All questions were answered. Disposition: Discharged home Impression: 1. Acute anxiety This note was generated with allyve software. It may contain incorrect words, spelling, and punctuation that were not noted in review of the chart prior to signing <Tk Almanza - Last Filed: 11/29/17 17:33> - ER Visit Summary Date of Service: 11/29/17 Chief Complaint: [] History of Present Illness: The patient is a 51 F [] Physical Examination: [] Test Results: [] Emergency Department Course and Treatment: [] Treatment Plan: Urinalysis negative. Patient will be discharged Disposition: [] Impression: [] This note was generated with allyve software. It may contain incorrect words, spelling, and punctuation that were not noted in review of the chart prior to signing <Klever Quinones - Last Filed: 11/29/17 18:15> ED Disposition <Tk Almanza - Last Filed: 11/29/17 17:33> <Klever Quinones - Last Filed: 11/29/17 18:15> - Plan for ED Patient: Disposition: Home or Assisted Living Chief Complaint: Anxiety Diagnosis: Anxiety and depression Instructions: ED Stress React Referrals: Mignon Walsh MD [Primary Care Provider] - What to do if you have Problems For any increased pain, shortness of breath, bleeding, nausea or vomiting, chest pain, or any unexpected problems, contact your Primary Care Provider. Call [facility] ([phone]) or report to the closest Emergency Room. Call 911 if necessary. 12/05/17 2139 <Electronically signed by Tk Almanza DO> Date Tk Almanza DO 11/29/17 1815<Electronically signed by Klever Quinones MD> Cosigner Signature (If Indicated): Date Klever Quinones MD CC: Mignon Walsh MD DISCHARGE INSTRUCTION Observed: 11/29/2017 Status: F Source: [place] 6:15 PM [facility] [place] [facility] Medical Records Department [address] [place] [address] Discharge Instruction 11/29/171814 MR#: [id number] Acct: [id number] Name: KATHERIN SUERO Rep #: [id number] : 1965 51 From: Klever Quinones MD PCP: Mignon Walsh MD Status: REG ER ED Disposition - Plan for ED Patient: Disposition: Home or Assisted Living Chief Complaint: Anxiety Diagnosis: Anxiety and depression Instructions: ED Stress React Referrals: Mignon Walsh MD [Primary Care Provider] - What to do if you have Problems For any increased pain, shortness of breath, bleeding, nausea or vomiting, chest pain, or any unexpected problems, contact your Primary Care Provider. Call [facility] ([phone]) or report to the closest Emergency Room. Call 911 if necessary. 11/29/171814 <Electronically signed by Klever Quinones MD> Date Klever Quinones MD Cosigner Signature (If Indicated): Date CC: Mignon Walsh MD URINALYSIS, COMPLETE Collected: 11/29/2017 Status: F Source: [place] 5:30 PM [facility] [place] Order Comment: Order Date: 11/29/17 COLOR OF URINE MAY AFFECT DIPSTICK RESULTS. How was Urine Obtained? CLEAN CATCH TYPE CODE TESTS RESULT OUT OF RANGE REFERENCE UNITS LAB L400.3000 Yellow COLOR Normal [place] LAB L400.3050 Clear Normal CLARITY Clear LAB L400.3200 Normal mg/dl Normal GLUCOSE, UR Normal LAB L400.3300 Negative mg/dL High BILIRUBIN URINE 1 Result Comment: COLOR OF URINE MAY AFFECT DIPSTICK RESULTS. LAB L400.3400 Negative mg/dl High KETONE UR 15 LAB L400.3465 1.002-1.030 Normal SP.GR. DIPSTX 1.025 LAB L400.3550 5.0 - 8.0 pH Normal UR 5.0 LAB L400.3600 Negative mg/dl High PROT DIPSTX 30 LAB L400.3700 Normal mg/dl High UROBILI 1 LAB L400.3750 Negative Normal NITRITE UR Negative LAB L400.3780 Negative /ul Normal OCCULT Negative BLOOD-UR LAB L400.3800 Negative /ul High LEUK ESTERASE 25 LAB L400.4050 0-5 /hpf Normal WBC 0-5 SEEN LAB L400.4100 0-5 /hpf Normal RBC-UA 0 SEEN LAB L400.4150 5-10 /hpf Normal SQUAM EPI 10-25 SEEN LAB L400.4300 None Seen /hpf Normal BACTERIA 0 SEEN LAB L400.4350 <or=2+ /hpf Normal MUCUS, URINE 2+ LAB L400.4400 0-5 /lpf Normal HYALINE CAST 0-5 SEEN Performed By: #### L400.0001 #### [facility] [address] [place], [address] CNCO Observed: 10/20/2017 Status: COMPLETED Source: ONYX 12:00 AM [facility] REPOSITORY Letter Text [facility] [facility] [address] [place], [place] [address] Katherni Christine Suero [address] [place], [place] [id number] [facility] #: [id number] 10/20/2017 Katherin, Attempts were made to contact you by phone but was unable to leave VM due to mailbox being full, below you will see a message from Dc discussing your lab results. If you have any questions or concerns please feel free to contact the office at [phone] Please inform patient that her Hgb A1c improved to 6.8%. Considered better control of diabetes. Continue with current medications. ? 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 Thank you for letting us serve your health needs. Sincerely, Your [facility] BASIC METABOLIC PANL Collected: 10/19/2017 Status: F Source: ONYX 2:12 PM [facility] REPOSITORY TYPE CODE TESTS RESULT OUT OF REFERENCE UNITS RANGE LAB GLU 74-99 mg/dL High Glucose 124 Result Comment: The [place] [employer] (ADA) provides guidance for cutoff values for fasting glucose and random glucose. The ADA defines fasting as no caloric intake for at least 8 hours. Fas ting plasma glucose results between 100 to 125 mg/dL indicate increased risk for diabetes (prediabetes). Fasting plasma glucose results greater than or equal to 126 mg/dL meet the criteria for diagnosis of diabetes. In the absence of unequivocal hyperglycemia, results should be confirmed by repeat testing. In a patient with classic symptoms of hyperglycemia or hyperglycemic crisis, random plasma glucose results greater than or equal to 200 mg/dL meet the criteria for diagnosis of diabetes. Reference: Standards of Medical Care in Diabetes 2016, [employer] [place] [employer]. Diabetes Care. 2016.39(Suppl 1). LAB BUN 7-21 mg/dL BUN Low 5 LAB CRET 0.58-0.96 mg/dL Creatinine 0.67 LAB NA 136-144 mmol/L Sodium 140 LAB K 3.7-5.1 mmol/L Potassium 4.2 LAB CL 97-105 mmol/L Chloride 103 LAB CO2 22-30 mmol/L CO2 22 LAB AGAP 9-18 mmol/L Anion Gap 15 LAB CA 8.5-10.2 mg/dL Calcium, Total 9.1 LAB GFRAA eGFR- Amer. >60 LAB GFRNAA . eGFR-All Other Races >60 Result Comment: eGFR (Estimated GFR) Units of measure: mL/min/1.73 meters squared eGFR is derived from the reexpressed MDRD Study equation using the following parameters: serum creatinine, age, gender and race. The creatinine assay has been calibrated to be traceable to IDMS. An eGFR <60 mL/min/1.73m2 for >3 months is consistent with chronic kidney disease. Refer to KDOQI guidelines for clinical interpretation. In patients with unstable renal function, e.g. those with acute kidney injury, the eGFR may not accurately reflect actual GFR. Performed By: #### BMP, HBA1C #### [facility] [address] [id number] HEMOGLOBIN A1C Collected: 10/19/2017 Status: F Source: ONYX 2:12 PM [facility] REPOSITORY TYPE CODE TESTS RESULT OUT OF REFERENCE UNITS RANGE LAB HGBA1C 4.3-5.6 % High Hemoglobin A1c 6.8 LAB HBA0 mg/dL Est. Average Glucose 148 Result Comment: eAG: (Estimated average glucose) is a calculated value from HgbA1c and is public service representative of the average blood glucose level in the last 2-3 month period. Performed By: #### BMP, HBA1C #### [facility] [address] [place], [place] [address] PROGRESS Observed: 10/19/2017 Status: COMPLETED Source: ONYX 1:43 PM [facility] REPOSITORY HNO ID: [id number] Author: Mignon Walsh Service: (none) Author Type: Physician Type: Progress Notes Filed: 10/19/2017 5:24 PM Note Text: Chief Complaint Patient presents with: Cough: Left lung hurting Pain (foot): Left foot, painful possible gout HPI Katherin Suero is a 51 year old female who presents here today for multiple issues. Lung pain - Having lung lung pain with coughing of production of brown type sputum for the last week. Was down visiting her mom and was exposed to bronchitis and her son Rivera was sick also. Left foot - Pain in left foot, with swelling and redness. Unsure if this gout in the big toe or foot. But very painful. Started about 1 week ago also. UTI - States that she follows with Urology and they want to take her bladder out. Follows with Dr. Merrill [facility]. Symptoms of not being able to urinate but feeling as if she needs to or has a blockage or kidney stone. In pain, rated a 6/10. Has burning with urination, hematuria and states that she should be able to urinate with all the fluids that she's been drinking. DM - Checking sugars twice daily with FBS ranging from 60- 80. Feels like with the Glimepiride she gets dizzy, gets lows and would like to not take medication and try to not take Jardiance since she is losing weight. Psych - Increase Buspar 30 mg from bid to TID, but this is handles by Dr. Bell. Past medical history, appointments, medications, allergies reviewed. Previous Medical History PAST MEDICAL HISTORY Diagnosis Date - Asthma with exacerbation - Chronic back pain - Chronic bronchitis (HCC) 06/[address] Ponce - Chronic gastritis egd 02/07/14 - Depression [facility] - Dyslipidemia elevated TG, low HDL - H. pylori infection 06/2013 - Hypothyroidism - Impaired fasting glucose 06/2013 - Leukocytosis - Mitral valve disorders(424.0) MILD PROLAPSE NO REGUGITATION - Neuropathy ([facility]) b/l feet - NIMESH (obstructive sleep apnea) - Osteoarthritis of both knees 08/2013 - Psoriatic arthritis ([facility]) Dr. Rebecca Burgess - Rheumatoid arthritis ([facility]) - RLL pneumonia ([facility]) 04/19/13 - Tobacco use disorder - Unspecified asthma(493.90) - Unspecified essential hypertension Essential hypertension - Viral pneumonia, unspecified Pneumonia Previous Surgical History PAST SURGICAL HISTORY Procedure Laterality Date - CHOLECYSTECTOMY 1995 lap - COLONOSCOP W/ OR W/O BRSH SPEC 02/07/2014 Colonoscopy - DOPPLER ECHO HEART,COMPLETE 09/02/05 EF= 65% - EGD W/O OR W/BRUSH/WASH 02/07/2014 EGD - GASTRIC BYPASS HX 1985 - LEFT HEART CATH,PERCUTANEOUS 12/02/05 NORMAL - LUMBAR SPINE FUSION COMBINED 1992 X6 Family History FAMILY HISTORY Problem Relation Age of Onset - Hypertension Mother - Cancer Father lung 70 - Stroke Maternal Grandfather 81 - Breast Cancer Maternal Aunt Patient Allergies ALLERGIES Allergen Reactions - Macrobid [Nitrofura* Itching Hives and rash - Mri Dye [Contrast D* Vomiting constant vomiting, swell up, NEEDS premedication but still gets sick, not as bad - Ct Scan Dye [Other] Vomiting Vomiting, swelling of face: Needs premedication and gets sick, but not as bad - Fentanyl Intolerance Feels like throat is closing - Metformin GI Upset Has tried immediate release and XR formulation and unable to tolerate either - Sulfa (Sulfonamide * Itching Current Medications Current Outpatient Prescriptions on File Prior to Visit: predniSONE (DELTASONE) 10 mg tablet TAKE 1 TABLET BY MOUTH ONCE DAILY. cyclobenzaprine (FLEXERIL) 5 mg tablet TAKE 2 TABLETS BY MOUTH EVERY MORNING AND 1 TABLET IN THE AFTERNOON AND 2 TABLETS AT NIGHT levothyroxine (SYNTHROID) 150 mcg tablet TAKE 1 TABLET BY MOUTH DAILY BEFORE BREAKFAST. abatacept (ORENCIA) 125 mg/mL syrg Inject 125 mg subcutaneously once each week. pantoprazole DR (PROTONIX) 40 mg tablet TAKE 1 TABLET BY MOUTH DAILY atorvastatin (LIPITOR) 20 mg tablet TAKE 1 TABLET BY MOUTH AT BEDTIME gabapentin (NEURONTIN) 800 mg tablet TAKE 2 TABLETS BY MOUTH EVERY MORNING AND TAKE 1 AND 1/2 TABLETS IN THE AFTERNOON AND TAKE 1 TABLET AT BEDTIME albuterol (PROVENTIL) 2.5 mg /3 mL (0.083 %) nebulizer solution Use 3 mL via nebulizer every 4 hours as needed for Wheezing/Shortness of Breath. Use over 5-15minutes. glimepiride (AMARYL) 4 mg tablet TAKE 1 TABLET BY MOUTH DAILY COMPOUNDED PRESCRIPTION Adult diaper: Depends: Size: [id number]: N39.46 Mixed incontinence urge and stress (female)ICD-10: N39.0 Recurrent UTI (urinary tract infection). ibuprofen (MOTRIN) 800 mg tablet Take 1 tablet by mouth every 8 hours as needed for Pain. Take with food. albuterol HFA (PROVENTIL HFA, VENTOLIN HFA) 90 mcg/actuation inhaler Inhale 2 Puffs as instructed every 4 hours as needed. empagliflozin (JARDIANCE) 10 mg tablet Take 1 tablet by mouth once daily. Take 1 tablet once daily in the morning Blood-Glucose Meter monitoring kit Glucose Meter of Choice - Kit - Dx: Type 2 DM - Uncontrolled E11.65 budesonide (PULMICORT FLEXHALER) 180 mcg/actuation aepb Inhale 2 Puffs as instructed twice daily. clonazePAM (KLONOPIN) 0.5 mg tablet Take 1 tablet by mouth twice daily. lisinopril (ZESTRIL, PRINIVIL) 10 mg tablet Take 1 tablet by mouth once daily. COMPOUNDED PRESCRIPTION Powerstep orthotics(L30.9) Dermatitis (primary encounter diagnosis)(72.2) Plantar fasciitis, bilatera(E11.49) Other diabetic neurological complication associated with type 2 diabetes mellitus (HCC) COMPOUNDED PRESCRIPTION Physical therapy ordered for her for a home modification evaluation to evaluate need for lift chair or other DME that will assist patient in home and promote safety. blood sugar diagnostic (BLOOD GLUCOSE TEST) test strip Test blood sugar(s) 1-2 times daily and PRN. Dx: Type 2 DM - Controlled E11.9 Insulin: No BUSPIRONE HCL (BUSPAR ORAL) Take 30 mg by mouth twice daily. Lancets lancets Test blood sugar(s) one times daily. Dx: Type 2 DM - Controlled E11.9 Insulin: No Lancets lancets Test blood sugar(s) 1-2 times daily. Dx: Type 2 DM - Controlled E11.9 Insulin: No COMPOUNDED PRESCRIPTION Please provide patient with new nebulizer machine and supplies.Diagnosis: Wheezing, dyspnea. DULoxetine (CYMBALTA) 60 mg capsule Take 120 mg by mouth once daily. No current facility-administered medications on file prior to visit. Social History Social History Marital status: Single Spouse name: Years of education: Number of children: 2 Occupational History Occupation Employer Comment [employer] Currently on Disab* Social History Main Topics Smoking status: Current Every Day Smoker Packs/day: 1.00 Years: 32.00 Types: Cigarettes Start date: 12/28/1984 Smokeless tobacco: Never Used Alcohol use: No Drug use: No Sexual activity: Not Currently EXAM: LMP 01/27/2006 General Appearance: Well appearing, alert, in no acute distress, well-hydrated, well nourished. and Morbidly obese. Lungs: Lungs clear to auscultation. Wheezing through out lungs, rhonchi, rales. Heart: RRR without murmur, gallop, or rubs. No ectopy. Extremities: Left foot redness. Health Maintenance List DILATED RETINAL EXAM due on 12/18/2016 DIABETIC FOOT EXAM due on 11/12/2017 STATIN MED ADHERENCE due on 10/27/2017 STEROID INHALER PRESCRIBED due on 10/27/2017 DIABETES MED ADHERENCE due on 10/27/2017 STEROID INHALER ADHERENCE due on 10/27/2017 HBA1C due on 11/02/2017 INFLUENZA(1) due on 11/27/2017 MAMMOGRAM due on 03/31/2018 URINE ALBUMIN:CREATININE RATIO due on 05/12/2018 PAP EVERY 5 YEARS due on 07/21/2018 HPV EVERY 5 YEARS due on 07/21/2018 LDL CHOLESTEROL due on 08/02/2018 ANNUAL PCP TEAM CHRONIC DISEASE VISIT due on 08/02/2018 BLOOD PRESSURE CONTROLLED due on 08/02/2018 COLORECTAL CANCER SCREENING,SEE MODIFIER due on 02/08/2024 DTAP,TDAP,TD(2 - Td) due on 03/20/2025 ONE PNEUMOVAX PRIOR TO AGE 65 Completed Data reviewed No visits with results within 2 Month(s) from this visit. Latest known visit with results is: Appointment on 08/02/2017 Component Date Value - Hemoglobin A1C 08/02/2017 8.7* - Estimated Average Glucose 08/02/2017 203 - WBC 08/02/2017 13.91* - RBC 08/02/2017 4.97 - Hemoglobin 08/02/2017 12.2 - Hematocrit 08/02/2017 41.3 - MCV 08/02/2017 83.1 - MCH 08/02/2017 24.5* - MCHC 08/02/2017 29.5* - RDW-CV 08/02/2017 17.2* - Platelet Count 08/02/2017 369 - MPV 08/02/2017 10.4 - Neut% 08/02/2017 62.2 - Abs Neut (ANC) 08/02/2017 8.65* - Lymph% 08/02/2017 28.8 - Abs Lymph 08/02/2017 4.00 - [place]% 08/02/2017 7.0 - Abs [place] 08/02/2017 0.97* - Eosin% 08/02/2017 1.4 - Abs Eosin 08/02/2017 0.20 - Baso% 08/02/2017 0.6 - Abs Baso 08/02/2017 0.09 - Nucleated Reds 08/02/2017 0.0 - Absolute nRBC 08/02/2017 <0.01 - Diff Type 08/02/2017 Auto Diff - AST 08/02/2017 11* - ALT 08/02/2017 12 - Albumin 08/02/2017 3.9 - Creatinine 08/02/2017 0.73 - eGFR- 08/02/2017 >60 - eGFR-All Other Races 08/02/2017 >60 - WSR 08/02/2017 21* - CRP 08/02/2017 1.4* - Cholesterol, Total 08/02/2017 149 - Triglyceride 08/02/2017 203* - HDL Cholesterol 08/02/2017 38* - LDL Cholesterol 08/02/2017 70 - Non HDL Cholesterol 08/02/2017 111 - Fasting Time 08/02/2017 12 - VLDL Cholesterol 08/02/2017 41* - TC:HDL Ratio 08/02/2017 3.92 - LDL:HDL Ratio 08/02/2017 1.84 - Protein, Total 08/02/2017 7.1 - Albumin 08/02/2017 3.9 - Calcium 08/02/2017 9.0 - Bilirubin, Total 08/02/2017 0.3 - Alkaline Phosphatase 08/02/2017 68 - AST 08/02/2017 12* - Glucose 08/02/2017 165* - BUN 08/02/2017 6* - Creatinine 08/02/2017 0.72 - Sodium 08/02/2017 138 - Potassium 08/02/2017 3.7 - Chloride 08/02/2017 95* - CO2 08/02/2017 25 - Anion Gap 08/02/2017 18 - ALT 08/02/2017 11 - eGFR- 08/02/2017 >60 - eGFR-All Other Races 08/02/2017 >60 - TSH 08/02/2017 5.100 ASSESSMENT/PLAN: 1. Bronchitis - ICD9: 490, ICD10: J40 (primary diagnosis) - Levaquin #7 days 2. Mild persistent asthma without complication - ICD9: 493.90, ICD10: J45.30 Mild intermittent Asthma stable - Avoidance of triggers recommended 3. Uncontrolled type 2 diabetes mellitus without complication, without long-term current use of insulin (HCC) - ICD9: 250.02, ICD10: E11.65 improved control - Continue current medications 4. Leg cramps - ICD9: 729.82, ICD10: R25.2 - Labs 5. Foot pain, left - ICD9: 729.5, ICD10: M79.672 - Levaquin 6. Chronic recurrent UTI Refer to Urology 1 mo f/u, f/u if need to be seen sooner. Mignon Walsh MD The documentation for this note was completed by Cindy Carlin Ma acting as scribe for Mignon Walsh MD. October 19, 2017 1:43 PM. CNOV Observed: 10/19/2017 Status: COMPLETED Source: ONYX 1:20 PM [facility] REPOSITORY Office Visit (FAMPWS) KATHERIN SUERO ([id number]) 1965 F T Date Time Provider Department 10/19/17 1:20 PM MIGNON WALSH During your visit today, we recorded the following information about you: Temperature Pulse Respiration Blood pressure 98.5 degrees 96/minute 16/minute 112/64 Weight 127.6 kg Mignon Walsh MD 10/19/2017 5:24 PM Signed Chief Complaint Patient presents with: Cough: Left lung hurting Pain (foot): Left foot, painful possible gout HPI Katherin Suero is a 51 year old female who presents here today for multiple issues. Lung pain - Having lung lung pain with coughing of production of brown type sputum for the last week. Was down visiting her mom and was exposed to bronchitis and her son Rivera was sick also. Left foot - Pain in left foot, with swelling and redness. Unsure if this gout in the big toe or foot. But very painful. Started about 1 week ago also. UTI - States that she follows with Urology and they want to take her bladder out. [facility]. Symptoms of not being able to urinate but feeling as if she needs to or has a blockage or kidney stone. In pain, rated a 6/10. Has burning with urination, hematuria and states that she should be able to urinate with all the fluids that she's been drinking. DM - Checking sugars twice daily with FBS ranging from 60- 80. Feels like with the Glimepiride she gets dizzy, gets lows and would like to not take medication and try to not take Jardiance since she is losing weight. Psych - Increase Buspar 30 mg from bid to TID, but this is handles by Dr. Bell. Past medical history, appointments, medications, allergies reviewed. Previous Medical History PAST MEDICAL HISTORY Diagnosis Date - Asthma with exacerbation - Chronic back pain - Chronic bronchitis ([facility]) 06/[address] Ponce - Chronic gastritis egd 02/07/14 - Depression Dr. Jameson [facility] - Dyslipidemia elevated TG, low HDL - H. pylori infection 06/2013 - Hypothyroidism - Impaired fasting glucose 06/2013 - Leukocytosis - Mitral valve disorders(424.0) MILD PROLAPSE NO REGUGITATION - Neuropathy ([facility]) b/l feet - NIMESH (obstructive sleep apnea) - Osteoarthritis of both knees 08/2013 - Psoriatic arthritis ([facility]) Dr. Rebecca Burgess - Rheumatoid arthritis ([facility]) - RLL pneumonia ([facility]) 04/19/13 - Tobacco use disorder - Unspecified asthma(493.90) - Unspecified essential hypertension Essential hypertension - Viral pneumonia, unspecified Pneumonia Previous Surgical History PAST SURGICAL HISTORY Procedure Laterality Date - CHOLECYSTECTOMY 1995 lap - COLONOSCOP W/ OR W/O BRSH SPEC 02/07/2014 Colonoscopy - DOPPLER ECHO HEART,COMPLETE 09/02/05 EF= 65% - EGD W/O OR W/BRUSH/WASH 02/07/2014 EGD - GASTRIC BYPASS HX 1986 - LEFT HEART CATH,PERCUTANEOUS 12/02/05 NORMAL - LUMBAR SPINE FUSION COMBINED 1992 X6 Family History FAMILY HISTORY Problem Relation Age of Onset - Hypertension Mother - Cancer Father lung 70 - Stroke Maternal Grandfather 81 - Breast Cancer Maternal Aunt Patient Allergies ALLERGIES Allergen Reactions - Macrobid [Nitrofura* Itching Hives and rash - Mri Dye [Contrast D* Vomiting constant vomiting, swell up, NEEDS premedication but still gets sick, not as bad - Ct Scan Dye [Other] Vomiting Vomiting, swelling of face: Needs premedication and gets sick, but not as bad - Fentanyl Intolerance Feels like throat is closing - Metformin GI Upset Has tried immediate release and XR formulation and unable to tolerate either - Sulfa (Sulfonamide * Itching Current Medications Current Outpatient Prescriptions on File Prior to Visit: predniSONE (DELTASONE) 10 mg tablet TAKE 1 TABLET BY MOUTH ONCE DAILY. cyclobenzaprine (FLEXERIL) 5 mg tablet TAKE 2 TABLETS BY MOUTH EVERY MORNING AND 1 TABLET IN THE AFTERNOON AND 2 TABLETS AT NIGHT levothyroxine (SYNTHROID) 150 mcg tablet TAKE 1 TABLET BY MOUTH DAILY BEFORE BREAKFAST. abatacept (ORENCIA) 125 mg/mL syrg Inject 125 mg subcutaneously once each week. pantoprazole DR (PROTONIX) 40 mg tablet TAKE 1 TABLET BY MOUTH DAILY atorvastatin (LIPITOR) 20 mg tablet TAKE 1 TABLET BY MOUTH AT BEDTIME gabapentin (NEURONTIN) 800 mg tablet TAKE 2 TABLETS BY MOUTH EVERY MORNING AND TAKE 1 AND 1/2 TABLETS IN THE AFTERNOON AND TAKE 1 TABLET AT BEDTIME albuterol (PROVENTIL) 2.5 mg /3 mL (0.083 %) nebulizer solution Use 3 mL via nebulizer every 4 hours as needed for Wheezing/Shortness of Breath. Use over 5-15minutes. glimepiride (AMARYL) 4 mg tablet TAKE 1 TABLET BY MOUTH DAILY COMPOUNDED PRESCRIPTION Adult diaper: Depends: Size: [id number]: N39.46 Mixed incontinence urge and stress (female)ICD-10: N39.0 Recurrent UTI (urinary tract infection). ibuprofen (MOTRIN) 800 mg tablet Take 1 tablet by mouth every 8 hours as needed for Pain. Take with food. albuterol HFA (PROVENTIL HFA, VENTOLIN HFA) 90 mcg/actuation inhaler Inhale 2 Puffs as instructed every 4 hours as needed. empagliflozin (JARDIANCE) 10 mg tablet Take 1 tablet by mouth once daily. Take 1 tablet once daily in the morning Blood-Glucose Meter monitoring kit Glucose Meter of Choice - Kit - Dx: Type 2 DM - Uncontrolled E11.65 budesonide (PULMICORT FLEXHALER) 180 mcg/actuation aepb Inhale 2 Puffs as instructed twice daily. clonazePAM (KLONOPIN) 0.5 mg tablet Take 1 tablet by mouth twice daily. lisinopril (ZESTRIL, PRINIVIL) 10 mg tablet Take 1 tablet by mouth once daily. COMPOUNDED PRESCRIPTION Powerstep orthotics(L30.9) Dermatitis (primary encounter diagnosis)(72.2) Plantar fasciitis, bilatera(E11.49) Other diabetic neurological complication associated with type 2 diabetes mellitus (HCC) COMPOUNDED PRESCRIPTION Physical therapy ordered for her for a home modification evaluation to evaluate need for lift chair or other DME that will assist patient in home and promote safety. blood sugar diagnostic (BLOOD GLUCOSE TEST) test strip Test blood sugar(s) 1-2 times daily and PRN. Dx: Type 2 DM - Controlled E11.9 Insulin: No BUSPIRONE HCL (BUSPAR ORAL) Take 30 mg by mouth twice daily. Lancets lancets Test blood sugar(s) one times daily. Dx: Type 2 DM - Controlled E11.9 Insulin: No Lancets lancets Test blood sugar(s) 1-2 times daily. Dx: Type 2 DM - Controlled E11.9 Insulin: No COMPOUNDED PRESCRIPTION Please provide patient with new nebulizer machine and supplies.Diagnosis: Wheezing, dyspnea. DULoxetine (CYMBALTA) 60 mg capsule Take 120 mg by mouth once daily. No current facility-administered medications on file prior to visit. Social History Social History Marital status: Single Spouse name: Years of education: Number of children: 2 Occupational History Occupation Employer Comment [employer] Currently on Disab* Social History Main Topics Smoking status: Current Every Day Smoker Packs/day: 1.00 Years: 32.00 Types: Cigarettes Start date: 12/28/1984 Smokeless tobacco: Never Used Alcohol use: No Drug use: No Sexual activity: Not Currently EXAM: LMP 01/27/2006 General Appearance: Well appearing, alert, in no acute distress, well-hydrated, well nourished. and Morbidly obese. Lungs: Lungs clear to auscultation. Wheezing through out lungs, rhonchi, rales. Heart: RRR without murmur, gallop, or rubs. No ectopy. Extremities: Left foot redness. Health Maintenance List DILATED RETINAL EXAM due on 12/18/2016 DIABETIC FOOT EXAM due on 11/12/2017 STATIN MED ADHERENCE due on 10/27/2017 STEROID INHALER PRESCRIBED due on 10/27/2017 DIABETES MED ADHERENCE due on 10/27/2017 STEROID INHALER ADHERENCE due on 10/27/2017 HBA1C due on 11/02/2017 INFLUENZA(1) due on 11/27/2017 MAMMOGRAM due on 03/31/2018 URINE ALBUMIN:CREATININE RATIO due on 05/12/2018 PAP EVERY 5 YEARS due on 07/21/2018 HPV EVERY 5 YEARS due on 07/21/2018 LDL CHOLESTEROL due on 08/02/2018 ANNUAL PCP TEAM CHRONIC DISEASE VISIT due on 08/02/2018 BLOOD PRESSURE CONTROLLED due on 08/02/2018 COLORECTAL CANCER SCREENING,SEE MODIFIER due on 02/08/2024 DTAP,TDAP,TD(2 - Td) due on 03/20/2025 ONE PNEUMOVAX PRIOR TO AGE 65 Completed Data reviewed No visits with results within 2 Month(s) from this visit. Latest known visit with results is: Appointment on 08/02/2017 Component Date Value - Hemoglobin A1C 08/02/2017 8.7* - Estimated Average Glucose 08/02/2017 203 - WBC 08/02/2017 13.91* - RBC 08/02/2017 4.97 - Hemoglobin 08/02/2017 12.2 - Hematocrit 08/02/2017 41.3 - MCV 08/02/2017 83.1 - MCH 08/02/2017 24.5* - MCHC 08/02/2017 29.5* - RDW-CV 08/02/2017 17.2* - Platelet Count 08/02/2017 369 - MPV 08/02/2017 10.4 - Neut% 08/02/2017 62.2 - Abs Neut (ANC) 08/02/2017 8.65* - Lymph% 08/02/2017 28.8 - Abs Lymph 08/02/2017 4.00 - [place]% 08/02/2017 7.0 - Abs [place] 08/02/2017 0.97* - Eosin% 08/02/2017 1.4 - Abs Eosin 08/02/2017 0.20 - Baso% 08/02/2017 0.6 - Abs Baso 08/02/2017 0.09 - Nucleated Reds 08/02/2017 0.0 - Absolute nRBC 08/02/2017 <0.01 - Diff Type 08/02/2017 Auto Diff - AST 08/02/2017 11* - ALT 08/02/2017 12 - Albumin 08/02/2017 3.9 - Creatinine 08/02/2017 0.73 - eGFR- 08/02/2017 >60 - eGFR-All Other Races 08/02/2017 >60 - WSR 08/02/2017 21* - CRP 08/02/2017 1.4* - Cholesterol, Total 08/02/2017 149 - Triglyceride 08/02/2017 203* - HDL Cholesterol 08/02/2017 38* - LDL Cholesterol 08/02/2017 70 - Non HDL Cholesterol 08/02/2017 111 - Fasting Time 08/02/2017 12 - VLDL Cholesterol 08/02/2017 41* - TC:HDL Ratio 08/02/2017 3.92 - LDL:HDL Ratio 08/02/2017 1.84 - Protein, Total 08/02/2017 7.1 - Albumin 08/02/2017 3.9 - Calcium 08/02/2017 9.0 - Bilirubin, Total 08/02/2017 0.3 - Alkaline Phosphatase 08/02/2017 68 - AST 08/02/2017 12* - Glucose 08/02/2017 165* - BUN 08/02/2017 6* - Creatinine 08/02/2017 0.72 - Sodium 08/02/2017 138 - Potassium 08/02/2017 3.7 - Chloride 08/02/2017 95* - CO2 08/02/2017 25 - Anion Gap 08/02/2017 18 - ALT 08/02/2017 11 - eGFR- 08/02/2017 >60 - eGFR-All Other Races 08/02/2017 >60 - TSH 08/02/2017 5.100 ASSESSMENT/PLAN: 1. Bronchitis - ICD9: 490, ICD10: J40 (primary diagnosis) - Levaquin #7 days 2. Mild persistent asthma without complication - ICD9: 493.90, ICD10: J45.30 Mild intermittent Asthma stable - Avoidance of triggers recommended 3. Uncontrolled type 2 diabetes mellitus without complication, without long-term current use of insulin (HCC) - ICD9: 250.02, ICD10: E11.65 improved control - Continue current medications 4. Leg cramps - ICD9: 729.82, ICD10: R25.2 - Labs 5. Foot pain, left - ICD9: 729.5, ICD10: M79.672 - Levaquin 6. Chronic recurrent UTI Refer to Urology 1 mo f/u, f/u if need to be seen sooner. Mignon Walsh MD The documentation for this note was completed by Cindy Carlin Ma acting as scribe for Mignon Walsh MD. October 19, 2017 1:43 PM. Referring Provider: SELF [[id number]] Allergies As of Date: 10/19/2017 Noted Allergy Reaction MACROBID (NITROFURANTOIN MONOHYD/*11/07/2015 9 - Itching Comments: Hives and rash MRI DYE (CONTRAST DYE) 08/02/2009 11 - Vomiting Comments: constant vomiting, swell up, NEEDS premedication but still gets sick, not as bad ct scan dye [Other] 08/02/2009 11 - Vomiting Comments: Vomiting, swelling of face: Needs premedication and gets sick, but not as bad FENTANYL 05/09/2013 5 - Intolerance Comments: Feels like throat is closing METFORMIN 08/20/2015 8 - GI Upset Comments: Has tried immediate release and XR formulation and unable to tolerate either SULFA (SULFONAMIDE ANTIBIOTICS) 05/09/2013 9 - Itching Date Reviewed: 10/19/2017 Reviewed by: Cindy Carlin Ma - Fully Assessed Reason for Visit: Cough [28] Cmt: Left lung hurting Pain (foot) [760] Cmt: Left foot, painful possible gout Primary Visit Diagnosis:Bronchitis [J40] Other Visit Diagnoses:Mild persistent asthma without complication [J45.30] Uncontrolled type 2 diabetes mellitus without complication, without long-term current use of insulin (HCC) [E11.65] Leg cramps [R25.2] Foot pain, left [M79.672] Bladder infection [N30.90] Recurrent UTI [N39.0] Order(s):HGB A1C [ZOAOG1R] Order #: [id number] FUTURE BASIC METABOLIC PNL [SQBMP] Order #: [id number] FUTURE COMPOUNDED PRESCRIPTIONPlease provide patient with new nebulizer machine and supplies. Diagnosis: Wheezing, dyspnea.Disp: 1 EachRfl: 0 albuterol (PROVENTIL) 2.5 mg /3 mL (0.083 %) nebulizer solutionUse 3 mL via nebulizer every 4 hours as needed for Wheezing/Shortness of Breath. Use over 5-15minutes.Disp: 150 VialRfl: 11 levoFLOXacin (LEVAQUIN) 750 mg tabletTake 1 tablet by mouth once daily for 7 days.Disp: 7 tabletRfl: 0 CONSULT TO UROLOGY [9041] Order #: [id number]: 1 Prescriptions as of 10/19/2017 Sig: ALBUTEROL SULFATE 2.5 MG/3 ML* Use 3 mL via nebulizer every * PREDNISONE 10 MG TABLET TAKE 1 TABLET BY MOUTH ONCE D* CYCLOBENZAPRINE 5 MG TABLET TAKE 2 TABLETS BY MOUTH EVERY* LEVOTHYROXINE 150 MCG TABLET TAKE 1 TABLET BY MOUTH DAILY * ABATACEPT 125 MG/ML SUBCUTANE* Inject 125 mg subcutaneously * PANTOPRAZOLE 40 MG TABLET,DEL* TAKE 1 TABLET BY MOUTH DAILY ATORVASTATIN 20 MG TABLET TAKE 1 TABLET BY MOUTH AT BED* GABAPENTIN 800 MG TABLET TAKE 2 TABLETS BY MOUTH EVERY* COMPOUNDED PRESCRIPTION Please provide patient with n* LEVOFLOXACIN 750 MG TABLET Take 1 tablet by mouth once d* GLIMEPIRIDE 4 MG TABLET TAKE 1 TABLET BY MOUTH DAILY COMPOUNDED PRESCRIPTION Adult diaper: Depends: Size:* IBUPROFEN 800 MG TABLET Take 1 tablet by mouth every * ALBUTEROL SULFATE HFA 90 MCG/* Inhale 2 Puffs as instructed * EMPAGLIFLOZIN 10 MG TABLET Take 1 tablet by mouth once d* BLOOD-GLUCOSE METER KIT Glucose Meter of Choice - Kit* BUDESONIDE 180 MCG/ACTUATION * Inhale 2 Puffs as instructed * CLONAZEPAM 0.5 MG TABLET Take 1 tablet by mouth twice * LISINOPRIL 10 MG TABLET Take 1 tablet by mouth once d* COMPOUNDED PRESCRIPTION Powerstep orthotics (L30.9* COMPOUNDED PRESCRIPTION Physical therapy ordered for * BLOOD SUGAR DIAGNOSTIC STRIPS Test blood sugar(s) 1- 2 time* BUSPAR ORAL Take 30 mg by mouth twice tyrell* LANCETS Test blood sugar(s) one times* LANCETS Test blood sugar(s) 1- 2 times* DULOXETINE 60 MG CAPSULE,SERG* Take 120 mg by mouth once tyrell* Problem List As Of Date 10/19/2017 Noted Resolved Shortness of breath [R06.02] 07/01/2015 Asthma with exacerbation [J45.901] 07/01/2015 Viral pneumonia, unspecified [J12.9] 07/01/2015 More... MITRAL VALVE DISORDER [I05.9] Tobacco use disorder [F17.200] 07/01/2015 Essential hypertension [I10] More... MIXED HYPERLIPIDEMIA [E78.2] More... COUGH [R05] INVALID FOR* INCONTINENCE W/O SENSORY AWARENESS [N39.42] INVALID FOR*07/01/2015 URGE AND STRESS MIXED INCONTINENCE [N39.46] INVALID FOR* Morbid obesity with BMI of 45.0-49.9, adult [E6*INVALID FOR*07/01/2015 Tobacco abuse [Z72.0] INVALID FOR* Hyperlipidemia [E78.5] INVALID FOR*04/10/2016 Fibromyalgia [M79.7] INVALID FOR* Hypothyroidism [E03.9] INVALID FOR*07/01/2015 Asthma with COPD (HCC) [J44.9] INVALID FOR*07/01/2015 RLL pneumonia [J18.1] INVALID FOR*04/10/2016 GERD (gastroesophageal reflux disease) [K21.9] INVALID FOR* H. 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*INVALID FOR* NIMESH (obstructive sleep apnea) [G47.33] INVALID FOR* Asthma [J45.909] INVALID FOR* Seronegative rheumatoid arthritis (HCC) [M06.00]INVALID FOR* Controlled substance agreement signed [Z79.899] INVALID FOR* Bladder spasms [N32.89] INVALID FOR* Uncontrolled type 2 diabetes mellitus without c*INVALID FOR* Recurrent UTI [N39.0] INVALID FOR* Long-term use of immunosuppressant medication [*INVALID FOR* Prescriptions ordered this encounter Disp Refills Start End COMPOUNDED PRESCRIPTION 1 Ea* 0 10/19/2017 Class: Print RX Sig: Please provide patient with new nebulizer machine and supplies. Diagnosis: Wheezing, dyspnea. ALBUTEROL SULFATE 2.5 MG/3 ML (0.083* 150 * 11 10/19/2017 Route: NEBULIZATION Sig: Use 3 mL via nebulizer every 4 hours as needed for Wheezing/Shortness of Breath. Use over 5-15minutes. LEVOFLOXACIN 750 MG TABLET 7 ta* 0 10/19/2017 10/26/2017 Route: ORAL Sig: Take 1 tablet by mouth once daily for 7 days. Medications Discontinued During This Encounter COMPOUNDED PRESCRIPTION 1 Ea* 0 12/28/2014 10/19/2017 Class: Print RX Sig: Please provide patient with new nebulizer machine and supplies. Diagnosis: Wheezing, dyspnea. Disc: Reason for discontinue is not on file. albuterol (PROVENTIL) 2.5 mg /3 mL (* 150 * 11 12/24/2015 10/19/2017 Route: NEBULIZATION -UNSPEC Sig: Use 3 mL via nebulizer every 4 hours as needed for Wheezing/Shortness of Breath. Use over 5-15minutes. Disc: Reason for discontinue is not on file. Disposition: Return in about 1 month (around 11/19/2017). Follow-up and Disposition History Recorded Encounter Status:Closed by MIGNON WALSH MD on 10/19/17 12 LEAD ELECTROCARDIOGRAM Observed: 08/25/2017 Status: F Source: [place] 2:02 PM [facility] [place] [facility] Cardiovascular Services [address] [place] [address] 12 Lead EKG 08/20/172017 MR#: [id number] Acct: [id number] Name: KATHERIN SUERO Rep #: [id number] : 1965 51 From: Vinicio Clifford MD Attending Dr: Status: DEP ER Ordering Dr: Jackie Madsen MD Date: 08/20/17 Location: ED Sex: F C Admitted: Test Reason : CP Blood Pressure : / mmHG Vent. Rate : 092 BPM Atrial Rate : 092 BPM P-R Int : 128 ms QRS Dur : 074 ms QT Int : 388 ms P-R-T Axes : 066 075 045 degrees QTc Int : 479 ms Sinus rhythm with occasional Premature ventricular complexes Low voltage QRS Poor R wave progression Borderline ECG Confirmed by SAUL DANG, VINICIO ([id number]), television news video editor JOANIE MARTINES ([id number]) on 08/25/2017 2:02:43 PM Referred By: EMMANUEL 08/25/17 1402 Date Vinicio Clifford MD CC: Jackie Madsen MD; Mignon Walsh MD Signed EMERGENCY DEPARTMENT Observed: 08/21/2017 Status: F Source: SARAH ANN SUMMARY 2:14 AM [facility] [place] [facility] Medical Records Department [address] [place] [id number] Emergency Department Summary 08/21/17 0023 MR#: [id number] Acct: [id number] Name: KATHERIN SUERO Rep #: [id number] : 1965 51 From: Jackie Madsen MD PCP: Mignon Walsh MD Status: DEP ER - ER Visit Summary Date of Service: 08/21/17 Chief Complaint: Nausea and vomiting History of Present Illness: The patient is a 51 F reports nausea and vomiting over the past 2 days. She does not have any nausea medication at home. After she arrived here in the triage area she started complaining of abdominal pain and pain in the right flank region. She denies measured fever. She has had a Almazan catheter in the past secondary to neurogenic bladder, but has not required catheterization in quite some time. Physical Examination: Vital signs are unremarkable. Patient sitting upright in bed no acute distress. Head neck examination is unremarkable. Heart is regular rate and rhythm. Lung sounds are grossly clear. Abdomen is soft with tenderness in the lower abdomen. No guarding or rebound is noted. Hypoactive bowel sounds are noted throughout. Skin examination does reveal dry chronic rash to her feet bilaterally with no sign of secondary infection. Test Results: EKG is sinus at 92 with no sign of acute ischemia. CBC was a white count 11.7. Chemistry studies are normal. Urinalysis is positive for nitrites with 25-50 white blood cells and 3+ bacteria. Emergency Department Course and Treatment: Nursing staff did note that she got up to the bedside commode but was only able to urinate a small amount. Almazan catheter was then placed but patient did not have a significant amount of retained urine. Patient was given a single dose of 0.5 mg Dilaudid along with Zofran. She is given IV fluids and a dose of IV Rocephin. Repeat evaluation patient is resting comfortably. Almazan catheter will be removed. She will be treated with Zofran and Keflex. She did request stronger pain medicine for home which I declined. Treatment Plan: [] Disposition: Discharge Impression: Cystitis This note was generated with [employer] dictation software. It may contain incorrect words, spelling, and punctuation that were not noted in review of the chart prior to signing ED Disposition - Plan for ED Patient: Chief Complaint: Nausea/Vomiting Referrals: Mignon Walsh MD [Primary Care Provider] - What to do if you have Problems For any increased pain, shortness of breath, bleeding, nausea or vomiting, chest pain, or any unexpected problems, contact your Primary Care Provider. Call [facility] ([phone]) or report to the closest Emergency Room. Call 911 if necessary. 08/21/17 0214 <Electronically signed by Jackie Madsen MD> Date Jackie Madsen MD Cosigner Signature (If Indicated): Date CC: Mignon Walsh MD DISCHARGE INSTRUCTION Observed: 08/21/2017 Status: F Source: [place] 12:49 AM [facility] [place] [facility] Medical Records Department [address] [place] [address] Discharge Instruction 08/21/17 0048 MR#: [id number] Acct: [id number] Name: KATHERIN SUERO R Rep #: [id number] : 1965 51 From: Jackie Madsen MD PCP: Mignon Walsh MD Status: REG ER ED Disposition - Plan for ED Patient: Disposition: Home or Assisted Living Chief Complaint: Nausea/Vomiting Instructions: ED UTI Cystitis Female Prescriptions: Ondansetron [Zofran Odt] 4 mg PO Q8H PRN PRN #10 tablet PRN Reason: Nausea Cephalexin [Keflex] 500 mg PO Q6 #40 capsule Referrals: Mignon Walsh MD [Primary Care Provider] - 1 Week What to do if you have Problems For any increased pain, shortness of breath, bleeding, nausea or vomiting, chest pain, or any unexpected problems, contact your Primary Care Provider. Call [facility] ([phone]) or report to the closest Emergency Room. Call 911 if necessary. 08/21/17 0049 <Electronically signed by Jackie Madsen MD> Date Jackie Madsen MD Cosigner Signature (If Indicated): Date CC: Mignon Walsh MD ABDOMEN/PELVIS WITHOUT Observed: 08/20/2017 Status: F Source: [place] CONT 10:41 PM [facility] [place] [facility] Imaging Services [address] [place] [address] [place] [address] Abdomen/Pelvis without Cont MR#: [id number] Acct: [id number] Name: KATHERIN SUERO Rep #: [id number] : 1965 F 51 From: Chelly Martines MD PCP: Mignon Walsh MD Status: REG ER Study: Abdomen/Pelvis without Cont Date of Exam: 08/20/17 Exam# [id number] Ordering Dr: Jackie Madsen MD STUDY: CT ABDOMEN AND PELVIS WITHOUT CONTRAST REASON FOR EXAM: Female, 51 years old. Nausea, vomiting and flank pain. RADIATION DOSAGE (If Supplied By Facility): CTDIvol = ( 24.03 ) mGy, DLP = ( 1344.80 ) mGycm TECHNIQUE: Transaxial images were obtained from the dome of the diaphragm to the symphysis pubis without oral contrast, and without intravenous contrast. Sagittal and coronal images were reconstructed. Individualized dose optimization techniques were used for this CT. COMPARISON: CT of the abdomen and pelvis dated January 29, 2017 FINDINGS: The visualized lung bases are unremarkable. The visualized portions of the heart are within normal limits. There is hepatomegaly with diffuse hepatic enlargement. Liver measures approximately 19.6 cm in greatest cephalocaudal dimension. There are surgical clips in the gallbladder fossa consistent with a prior cholecystectomy. Normal spleen. Normal pancreas. Normal bilateral adrenal glands. Normal right kidney. There is a nonobstructing calculus in the left renal collecting system measuring about 3 mm in size. There is no evidence for hydronephrosis, hydroureter or radiopaque ureteral calculus. Appear to be surgical sutures in the stomach suggesting patient may have had gastric bypass surgery. There is no evidence for dilated bowel, ascites or pneumoperitoneum. Small bowel has a grossly normal unenhanced appearance. Stool is visible throughout the colon with scattered diverticula. There is a calcified appendicolith. There is patchy atherosclerotic calcification of the abdominal aorta, without a demonstrated aneurysm. Normal inferior vena cava. Normal retroperitoneum. Urinary bladder is not distended secondary to Almazan catheter. There is atrophy of the uterus. There is a small umbilical hernia containing fat. The bones are osteopenic. There is moderate compression fracture of T12 with mild compression of L1 vertebral body. This is unchanged since the previous CT. There is deformity of the right iliac wing suggesting sequela of either previous trauma or bone graft harvesting. There is a sclerotic lesion within the left iliac wing probably related to bone island. CT/Abdomen/Pelvis without Cont IMPRESSION: 1. No CT evidence of acute intra-abdominal disease. 2. Nonobstructing left-sided renal calculus. 3. Cholecystectomy. 4. Hepatomegaly. 5. Osteoporosis with old compression fractures. Electronically Signed: Chelly Martines MD at 0:30 EDT , Service support , CC: Jackie Madsen MD; Mignon Walsh MD Mixer Pigment: Signed CBC W/DIFF, AUTOMATED Collected: 08/20/2017 Status: F Source: [place] 10:[place] [facility] [place] CODE TESTS RESULT OUT OF RANGE REFERENCE UNITS LAB L100.1000 4.4-11.0 K/mm3 High WBC 11.4 LAB L100.1200 4.2-5.4 M/mm3 Normal RBC 4.93 LAB L100.1300 12.0-15.0 g/dl Normal HGB 12.4 LAB L100.1400 37-47 % Normal HCT 39.2 LAB L100.1500 81-99 fL Low MCV 79.5 LAB L100.1600 27.0-32.0 pg Low MCH 25.2 LAB L100.1700 32-36 g/gl Low MCHC 31.6 LAB L100.1810 11.6-14.6 % High RDW CV 16.6 LAB L100.1820 35.1-43.9 fl High RDW SD 47.7 LAB L100.1900 150-450 K/mm3 Normal PLT 355 LAB L100.2000 6.2-12.0 fl Normal MPV 9.5 LAB L100.2100 47-70 % Normal NEUT% 63.6 LAB L100.2200 19-41 % Normal LY% 26.8 LAB L100.2300 0-10 % Normal MONO% 8.1 LAB L100.2400 0-5 % Normal EO% 1.0 LAB L100.2500 0-1 % Normal BASO% 0.3 LAB L100.2550 0.0-0.9 % Normal IM GRAN % 0.200 Result Comment: IG% - Immature Granulocytes (promyelocytes, myelocytes and metamyelocytes) > 1% indicates that a LEFT SHIFT is Present. LAB L100.2620 2.0-7.7 X10 3/uL Normal Absolute Neut 7.3 LAB L100.2720 0.83-4.51 X10 3/ul Normal Absolute Lymph 3.06 Performed By: #### L100.0100 #### [facility] [address] [place], [place], [address] BASIC METABOLIC Collected: 08/20/2017 Status: F Source: [place] PROFILE (BMP) 10:09 [place] [facility] [place] CODE TESTS RESULT OUT OF RANGE REFERENCE UNITS LAB L501.0100 74-106 mg/dL Normal GLU 99 Result Comment: Please note revised GLUCOSE reference range effective 2017. LAB L501.1000 7-18 mg/dL Normal BUN 7 LAB L501.1100 0.55-1.02 mg/dL Normal CREAT,SERUM 0.66 Result Comment: The validity of the calculated GFR AND GFRAA in patients over 70 years has not been determined. Clinical correlation is essential. LAB L501.1110 >60 mL/min Normal EST GFR 101 Result Comment: Non- GFR Calc LAB L501.1115 >60 mL/min Normal EST GFR - AA 122 Result Comment: GFR Calc LAB L501.1255 ml/min Normal Estimated CRCL 105.39 LAB L501.1300 10-20 RATIO BUN/CRE Normal 10.7 LAB L501.2200 8.5-10 mg/dL .1 CA Normal 8.9 LAB L501.5300 136-14 mmol/L 5 NA Normal 142 LAB L501.5600 3.5-5. mmol/L 1 K Normal 3.7 LAB L501.5900 98-107 mmol/L CL Normal 106 LAB L501.6100 21.0-3 mmol/L 2.0 CO2 Normal 26.0 LAB L501.6200 5-15 GAP Normal 10 Performed By: #### L500.2500 #### [facility] [address] [place], [address] URINALYSIS, COMPLETE Collected: 08/20/2017 Status: F Source: [place] 9:50 PM [facility] [place] Order Comment: Order Date: 08/20/17 How was Urine Obtained? CLEAN CATCH TYPE CODE TESTS RESULT OUT OF RANGE REFERENCE UNITS LAB L400.3000 Yellow COLOR Normal Yellow LAB L400.3050 Clear Normal CLARITY Cloudy LAB L400.3200 Normal mg/dl High GLUCOSE, UR 100 LAB L400.3300 Negative mg/dL High BILIRUBIN URINE 1 Result Comment: COLOR OF URINE MAY AFFECT DIPSTICK RESULTS. LAB L400.3400 Negative mg/dl KETONE UR High 15 LAB L400.3465 1.002-1.030 SP.GR. Normal DIPSTX 1.015 LAB L400.3550 5.0 - 8.0 pH UR Normal 6.0 LAB L400.3600 Negative mg/dl PROT DIPSTX High 30 LAB L400.3700 Normal mg/dl UROBILI High 1 LAB L400.3750 Negative NITRITE UR High Positive LAB L400.3780 Negative /ul OCCULT High BLOOD-UR 25 LAB L400.3800 Negative /ul LEUK High ESTERASE 500 LAB L400.4050 0-5 /hpf WBC Normal 25-50 SEEN LAB L400.4100 0-5 /hpf RBC-UA Normal 0-5 SEEN LAB L400.4150 5-10 /hpf SQUAM EPI Normal 5-10 SEEN LAB L400.4300 None Seen /hpf BACTERIA Normal 3+ LAB L400.4350 <or=2+ /hpf MUCUS, Normal URINE 3+ LAB L400.4200 0-5 /hpf Normal TRANSITIONAL EP 0-5 SEEN Performed By: #### L400.0001 #### [facility] [address] [place], [place], [address] Observed: 08/20/2017 Status: F Source: SARAH ANN CULTURE, URINE 9:50 PM [facility] [place] Order Date: 08/20/17 Urine Culture ORGANISM 1: Presumptive E. coli [place] Count >100,000 Presumptive E. coli: REACTION Amoxacillin/Clavulanic Acid $ 4 S Ampicillin $ 8 S Ampicillin/Sulbactam $ <=2 S Cefazolin $ <=4 S Cefepime $ <=1 S Ceftriaxone $ <=1 S Ciprofloxacin $ <=0.25 S ESBL - Ertapenim $$$ <=0.5 S Gentamicin $ <=1 S Imipenem *NF <=0.25 S Levofloxacin $ <=0.12 S Nitrofurantoin $ <=16 S Piperacillin/Tazobactam $$ <=4 S Tobramycin $ <=1 S Trimethoprim/Sulfametho $ <=20 S (NF) indicates non-formulary drug at [facility]. Approval by Infectious Disease Specialist required before non-formulary drugs may be ordered and/or dispensed. Performed By: #### M100.0650 #### [facility] [address] [place], [address] SED RATE WESTERGREN Collected: 08/02/2017 Status: F Source: ONYX 12:47 PM [facility] REPOSITORY TYPE CODE TESTS RESULT OUT OF REFERENCE UNITS RANGE LAB WSR 0-20 mm/hr Sed Rate High [place] 21 Performed By: #### WSR, CBCDIF, ALB, ALT, AST, CRET1, CRP #### [facility] [address] [place], [place] [address] CBC AND DIFFERENTIAL Collected: 08/02/2017 Status: F Source: ONYX 12:47 PM [facility] REPOSITORY TYPE CODE TESTS RESULT OUT OF REFERENCE UNITS RANGE LAB WBC 3.70-11.00 k/uL WBC High 13.91 LAB RBC 3.90-5.20 m/uL RBC 4.97 LAB HGB 11.5-15.5 g/dL Hemoglobin 12.2 LAB HCT 36.0-46.0 % Hematocrit 41.3 LAB MCV 80.0-100.0 fL MCV 83.1 LAB MCH 26.0-34.0 pG Low MCH 24.5 LAB MCHC 30.5-36.0 g/dL Low MCHC 29.5 LAB RDWCV 11.5-15.0 % RDW-CV High 17.2 LAB PLTCT 150-400 k/uL Platelet Count 369 LAB MPV 9.0-12.7 fL MPV 10.4 LAB ANEUT % Neut% 62.2 LAB AANEUT 1.45-7.50 k/uL Abs Neut High 8.65 LAB ALYMP % Lymph% 28.8 LAB AALYMP 1.00-4.00 k/uL Abs Lymph 4.00 LAB AMONO % [place]% 7.0 LAB AAMONO <0.87 k/uL Abs [place] High 0.97 LAB AEOS % Eosin% 1.4 LAB AAEOS <0.46 k/uL Abs Eosin 0.20 LAB ABASO % Baso% 0.6 LAB AABASO <0.11 k/uL Abs Baso 0.09 LAB AUNRBC 0 /100 WBC NRBCs 0.0 LAB ABNRBC <0.01 k/uL Absolute nRBC <0.01 LAB DTYP DTYPE Auto Diff Performed By: #### WSR, CBCDIF, ALB, ALT, AST, CRET1, CRP #### [facility] [place] [address] [place] [address] ALBUMIN Collected: 08/02/2017 Status: F Source: ONYX 12:[address] [place] [address] REPOSITORY TYPE CODE TESTS RESULT OUT OF REFERENCE UNITS RANGE LAB ALB 3.9-4.9 g/dL Albumin 3.9 Performed By: #### WSR, CBCDIF, ALB, ALT, AST, CRET1, CRP #### [place] [address] ALT Collected: 08/02/2017 Status: F Source: ONYX 12:[address] [place] [address] REPOSITORY TYPE CODE TESTS RESULT OUT OF RANGE REFERENCE UNITS LAB ALT 7-38 U/L ALT 12 Performed By: #### WSR, CBCDIF, ALB, ALT, AST, CRET1, CRP #### [place] [address] AST Collected: 08/02/2017 Status: F Source: ONYX 12:[address] [place] [address] REPOSITORY TYPE CODE TESTS RESULT OUT OF RANGE REFERENCE UNITS LAB AST 13-35 U/L Low AST 11 Performed By: #### WSR, CBCDIF, ALB, ALT, AST, CRET1, CRP #### [place] [address] CREATININE Collected: 08/02/2017 Status: F Source: ONYX 12:[address] [place] [address] REPOSITORY TYPE CODE TESTS RESULT OUT OF REFERENCE UNITS RANGE LAB CRET 0.58-0.96 mg/dL Creatinine 0.73 LAB GFRAA eGFR- >60 Amer. LAB GFRNAA . eGFR-All Other Races >60 Result Comment: eGFR (Estimated GFR) Units of measure: mL/min/1.73 meters squared eGFR is derived from the reexpressed MDRD Study equation using the following parameters: serum creatinine, age, gender and race. The creatinine assay has been calibrated to be traceable to IDMS. An eGFR <60 mL/min/1.73m2 for >3 months is consistent with chronic kidney disease. Refer to KDOQI guidelines for clinical interpretation. In patients with unstable renal function, e.g. those with acute kidney injury, the eGFR may not accurately reflect actual GFR. Performed By: #### WSR, CBCDIF, ALB, ALT, AST, CRET1, CRP #### [facility] [address] [place] [id number] C-REACTIVE PROTEIN Collected: 08/02/2017 Status: F Source: ONYX 12:47 [facility] REPOSITORY TYPE CODE TESTS RESULT OUT OF REFERENCE UNITS RANGE LAB CRP <0.9 mg/dL High C-Reactive 1.4 Protein Performed By: #### WSR, CBCDIF, ALB, ALT, AST, CRET1, CRP #### [facility] [address] [place], [place] [address] COMP METABOLIC PANEL Collected: 08/02/2017 Status: F Source: ONYX 12:[address] [place] [address] REPOSITORY TYPE CODE TESTS RESULT OUT OF REFERENCE UNITS RANGE LAB TP 6.3-8.0 g/dL Protein, Total 7.1 LAB ALB 3.9-4.9 g/dL Albumin 3.9 LAB CA 8.5-10.2 mg/dL Calcium, Total 9.0 LAB TBIL 0.2-1.3 mg/dL Bilirubin, Total 0.3 LAB ALKP 32-117 U/L Alkaline Phosphatase 68 LAB AST 13-35 U/L Low AST 12 LAB GLU 74-99 mg/dL Glucose High 165 Result Comment: The [place] Diabetes [employer] (ADA) provides guidance for cutoff values for fasting glucose and random glucose. The ADA defines fasting as no caloric intake for at least 8 hours. Fas ting plasma glucose results between 100 to 125 mg/dL indicate increased risk for diabetes (prediabetes). Fasting plasma glucose results greater than or equal to 126 mg/dL meet the criteria for diagnosis of diabetes. In the absence of unequivocal hyperglycemia, results should be confirmed by repeat testing. In a patient with classic symptoms of hyperglycemia or hyperglycemic crisis, random plasma glucose results greater than or equal to 200 mg/dL meet the criteria for diagnosis of diabetes. Reference: Standards of Medical Care in Diabetes 2016, [place] [employer]. Diabetes Care. 2016.39(Suppl 1). LAB BUN 7-21 mg/dL BUN Low 6 LAB CRET 0.58-0.96 mg/dL Creatinine 0.72 LAB NA 136-144 mmol/L Sodium 138 LAB K 3.7-5.1 mmol/L Potassium 3.7 LAB CL 97-105 mmol/L Chloride Low 95 LAB CO2 22-30 mmol/L CO2 25 LAB AGAP 9-18 mmol/L Anion Gap 18 LAB ALT 7-38 U/L ALT 11 LAB GFRAA eGFR- Amer. >60 LAB GFRNAA . eGFR-All Other Races >60 Result Comment: eGFR (Estimated GFR) Units of measure: mL/min/1.73 meters squared eGFR is derived from the reexpressed MDRD Study equation using the following parameters: serum creatinine, age, gender and race. The creatinine assay has been calibrated to be traceable to IDMS. An eGFR <60 mL/min/1.73m2 for >3 months is consistent with chronic kidney disease. Refer to KDOQI guidelines for clinical interpretation. In patients with unstable renal function, e.g. those with acute kidney injury, the eGFR may not accurately reflect actual GFR. Performed By: #### CMP, LIPB, TSH, HBA1C #### [facility] [address] [place] [id number] LIPID PANEL, BASIC Collected: 08/02/2017 Status: F Source: ONYX 12:47 PM [facility] REPOSITORY TYPE CODE TESTS RESULT OUT OF REFERENCE UNITS RANGE LAB CHOL <200 mg/dL Cholesterol 149 Result Comment: <200 mg/dL, Desirable 200-239 mg/dL, Borderline high >239 mg/dL, High LAB TRIGLY <150 mg/dL Triglyceride High 203 Result Comment: <150 mg/dL, Normal 150-199 mg/dL, Borderline high 200-499 mg/dL, High >499 mg/dL, Very high LAB HDL >39 mg/dL HDL-Cholesterol Low 38 Result Comment: 40-59 mg/dL, Acceptable >59 mg/dL, High: Negative risk factor for coronary heart disease <40 mg/dL, Low: Positive risk factor for coronary heart disease LAB LDL <100 mg/dL LDL-Cholesterol 70 Result Comment: <100 mg/dL, Optimal 100-129 mg/dL, Near optimal/above optimal 130-159 mg/dL, Borderline high 160-189 mg/dL, High >189 mg/dL, Very high Secondary prevention optimal LDL Cholesterol levels are recommended to be < 70 mg/dL LAB NONHDL <130 mg/dL Non HDL Cholesterol 111 Result Comment: <130 mg/dL, Optimal 130-159 mg/dL, Near optimal/above optimal 160-189 mg/dL, Borderline high 190-219 mg/dL, High >219 mg/dL, Very high Secondary prevention optimal non HDL Cholesterol levels are recommended to be < 100 mg/dL LAB FT hrs Fasting Time 12 LAB VLDL <30 mg/dL High VLDL Cholesterol 41 LAB TCHDL <5.10 TC:HDL Ratio 3.92 LAB LDLHDL <2.54 LDL:HDL Ratio 1.84 Result Comment: Reference: 1. National Cholesterol Education Program ATP III Guideline At-A-Glance Quick Desk Reference: National Heart, Lung, and Blood [place]. National Institutes of Health. 2001: NIH Publication No. 01-3305. 2. An International Atherosclerosis Society position paper: global recommendations for the management of dyslipidemia: executive summary, Atherosclerosis. 2014: 232(2):410-413. Performed By: #### CMP, LIPB, TSH, HBA1C #### [facility] [address] [place] [address] TSH Collected: 08/02/2017 Status: F Source: ONYX 12:47 PM [facility] REPOSITORY TYPE CODE TESTS RESULT OUT OF RANGE REFERENCE UNITS LAB TSH 0.400-5.500 uU/mL TSH 5.100 Performed By: #### CMP, LIPB, TSH, HBA1C #### [facility] [address] [place] [id number] HEMOGLOBIN A1C Collected: 08/02/2017 Status: F Source: ONYX 12:47 PM [facility] REPOSITORY TYPE CODE TESTS RESULT OUT OF REFERENCE UNITS RANGE LAB HGBA1C 4.3-5.6 % High Hemoglobin A1c 8.7 LAB HBA0 mg/dL Est. Average Glucose 203 Result Comment: eAG: (Estimated average glucose) is a calculated value from HgbA1c and is public service representative of the average blood glucose level in the last 2-3 month period. Performed By: #### CMP, LIPB, TSH, HBA1C #### [facility] [address] [place], [place] [address] PROGRESS Observed: 08/02/2017 Status: COMPLETED Source: ONYX 11:46 AM [facility] REPOSITORY HNO ID: [id number] Author: Mignon Walsh Service: (none) Author Type: Physician Type: Progress Notes Filed: 08/02/2017 1:34 PM Note Text: Chief Complaint Patient presents with: F/U 1 month HPI Katherin Suero is a 51 year old female who presents here today for 1 month follow up. Headache: sharp pain, constant for the last 2 weeks. Has been under a lot of stress so thought maybe it was a tension headache. Nothing seems to make it better. She has been taking Ibuprofen 800 mg for pain. Has been having issues with feeling light headed. DM: states she checks sugars once daily, unable to give me results. She stated they readings were doing well but as of late the readings have been higher. No hypoglycemic episodes. Does have Neuropathy of feet. Is taking Gabapentin 800 mg 2 tablets in the AM, 1.5 tablets in the afternoon, and 1 tablet in the PM. Takes Jardiance 10 mg daily and Amaryl 4 mg daily. HTN: does not check BP at home. Is taking Lisinopril daily. No chest pains, dizziness, or SOB. Foot: looks better with Prednisone and Gabapentin. UTI: has been dealing with dark urine, foul odor, pain with urination. No nausea or fever. Ear: left ear pain x 1 month. GERD: controlled on Protonix. Fibromyalgia: follows with [facility]. Taking Prednisone and Cymbalta. Also on Gabapentin 800 mg. Pt gets Toradol injections from [facility]. Hypothyroidism: is taking Synthroid 150 mcg daily. Hyperlipidemia: is taking Lipitor 20 mg daily. Past medical history, appointments, medications, allergies reviewed. Previous Medical History PAST MEDICAL HISTORY Diagnosis Date - Asthma with exacerbation - Chronic back pain - Chronic bronchitis (HCC) 06/[address] Ponce - Chronic gastritis egd 02/07/14 - Depression Dr. Jameson [facility] - Dyslipidemia elevated TG, low HDL - H. pylori infection 06/2013 - Hypothyroidism - Impaired fasting glucose 06/2013 - Leukocytosis - Mitral valve disorders(424.0) MILD PROLAPSE NO REGUGITATION - Neuropathy (HCC) b/l feet - NIMESH (obstructive sleep apnea) - Osteoarthritis of both knees 08/2013 - Psoriatic arthritis ([facility]) Dr. Rebecca Burgess - Rheumatoid arthritis ([facility]) - RLL pneumonia ([facility]) 04/19/13 - Tobacco use disorder - Unspecified asthma(493.90) - Unspecified essential hypertension Essential hypertension - Viral pneumonia, unspecified Pneumonia Previous Surgical History PAST SURGICAL HISTORY Procedure Laterality Date - CHOLECYSTECTOMY 1995 lap - COLONOSCOP W/ OR W/O BRSH SPEC 02/07/2014 Colonoscopy - DOPPLER ECHO HEART,COMPLETE 09/02/05 EF= 65% - EGD W/O OR W/BRUSH/WASH 02/07/2014 EGD - GASTRIC BYPASS HX 1985 - LEFT HEART CATH,PERCUTANEOUS 12/02/05 NORMAL - LUMBAR SPINE FUSION COMBINED 1992 X6 Family History FAMILY HISTORY Problem Relation Age of Onset - Hypertension Mother - Cancer Father lung 70 - Stroke Maternal Grandfather 81 - Breast Cancer Maternal Aunt Patient Allergies ALLERGIES Allergen Reactions - Macrobid [Nitrofura* Itching Hives and rash - Mri Dye [Contrast D* Vomiting constant vomiting, swell up, NEEDS premedication but still gets sick, not as bad - Ct Scan Dye [Other] Vomiting Vomiting, swelling of face: Needs premedication and gets sick, but not as bad - Fentanyl Intolerance Feels like throat is closing - Metformin GI Upset Has tried immediate release and XR formulation and unable to tolerate either - Sulfa (Sulfonamide * Itching Current Medications Current Outpatient Prescriptions on File Prior to Visit: glimepiride (AMARYL) 4 mg tablet TAKE 1 TABLET BY MOUTH DAILY predniSONE (DELTASONE) 10 mg tablet Take 1 tablet by mouth once daily. abatacept (ORENCIA) 125 mg/mL syrg Inject 125 mg subcutaneously once each week. levothyroxine (SYNTHROID) 150 mcg tablet TAKE 1 TABLET BY MOUTH DAILY BEFORE BREAKFAST. cyclobenzaprine (FLEXERIL) 5 mg tablet TAKE 2 TABLETS BY MOUTH EVERY MORNING AND 1 TABLET IN THE AFTERNOON AND 2 TABLETS AT NIGHT COMPOUNDED PRESCRIPTION Adult diaper: Depends: Size: [id number]: N39.46 Mixed incontinence urge and stress (female)ICD-10: N39.0 Recurrent UTI (urinary tract infection). ibuprofen (MOTRIN) 800 mg tablet Take 1 tablet by mouth every 8 hours as needed for Pain. Take with food. albuterol HFA (PROVENTIL HFA, VENTOLIN HFA) 90 mcg/actuation inhaler Inhale 2 Puffs as instructed every 4 hours as needed. empagliflozin (JARDIANCE) 10 mg tablet Take 1 tablet by mouth once daily. Take 1 tablet once daily in the morning gabapentin (NEURONTIN) 800 mg tablet TAKE 2 TABLETS BY MOUTH EVERY MORNING AND TAKE 1 AND 1/2 TABLETS IN THE AFTERNOON AND TAKE 1 TABLET AT BEDTIME Blood-Glucose Meter monitoring kit Glucose Meter of Choice - Kit - Dx: Type 2 DM - Uncontrolled E11.[address] (PROTONIX) 40 mg tablet TAKE 1 TABLET BY MOUTH DAILY atorvastatin (LIPITOR) 20 mg tablet TAKE 1 TABLET BY MOUTH AT BEDTIME budesonide (PULMICORT FLEXHALER) 180 mcg/actuation aepb Inhale 2 Puffs as instructed twice daily. clonazePAM (KLONOPIN) 0.5 mg tablet Take 1 tablet by mouth twice daily. lisinopril (ZESTRIL, PRINIVIL) 10 mg tablet Take 1 tablet by mouth once daily. COMPOUNDED PRESCRIPTION Powerstep orthotics(L30.9) Dermatitis (primary encounter diagnosis)(72.2) Plantar fasciitis, bilatera(E11.49) Other diabetic neurological complication associated with type 2 diabetes mellitus (HCC) COMPOUNDED PRESCRIPTION Physical therapy ordered for her for a home modification evaluation to evaluate need for lift chair or other DME that will assist patient in home and promote safety. blood sugar diagnostic (BLOOD GLUCOSE TEST) test strip Test blood sugar(s) 1-2 times daily and PRN. Dx: Type 2 DM - Controlled E11.9 Insulin: No BUSPIRONE HCL (BUSPAR ORAL) Take 30 mg by mouth twice daily. albuterol (PROVENTIL) 2.5 mg /3 mL (0.083 %) nebulizer solution Use 3 mL via nebulizer every 4 hours as needed for Wheezing/Shortness of Breath. Use over 5-15minutes. Lancets lancets Test blood sugar(s) one times daily. Dx: Type 2 DM - Controlled E11.9 Insulin: No Lancets lancets Test blood sugar(s) 1-2 times daily. Dx: Type 2 DM - Controlled E11.9 Insulin: No COMPOUNDED PRESCRIPTION Please provide patient with new nebulizer machine and supplies.Diagnosis: Wheezing, dyspnea. DULoxetine (CYMBALTA) 60 mg capsule Take 120 mg by mouth once daily. predniSONE (DELTASONE) 20 mg tablet Take 3 pills daily for 3 days, then 2 pills daily for 3 days, then 1 pill daily for 3 days guaiFENesin (ROBITUSSIN) 100 mg/5 mL syrup Take 10 mL by mouth three times daily as needed. Cholecalciferol, Vitamin D3, (VITAMIN D-3) 2,000 unit cap Take 1 tablet by mouth once daily. ONDANSETRON HCL (ZOFRAN ORAL) Take by mouth. No current facility-administered medications on file prior to visit. Social History Social History Marital status: Single Spouse name: Years of education: Number of children: 2 Occupational History Occupation Employer Comment [employer] Currently on Disab* Social History Main Topics Smoking status: Current Every Day Smoker Packs/day: 1.00 Years: 32.00 Types: Cigarettes Start date: 12/28/1984 Smokeless tobacco: Never Used Alcohol use: No Drug use: No Sexual activity: Not Currently EXAM: BP 118/70 Pulse 72 Temp 37.2 ?C (98.9 ?F) (Tympanic) Resp 18 Wt 136.1 kg (300 lb) LMP 01/27/2006 BMI 44.30 kg/m? General Appearance: Well appearing, alert, in no acute distress, well-hydrated, well nourished., Morbidly obese. Ears: External ears normal, canals clear. Lungs: Lungs clear to auscultation. No wheezing, rhonchi, rales. Heart: RRR without murmur, gallop, or rubs. No ectopy. Abdomen: Normal abdominal exam, Abdomen soft, non-tender. Bowel sounds normal. No masses, organomegaly. Health Maintenance List DILATED RETINAL EXAM due on 12/18/2016 HBA1C due on 10/25/2017 DIABETIC FOOT EXAM due on 11/12/2017 LDL due on 2017 MAMMOGRAM due on 03/31/2018 URINE ALBUMIN CREATININE RATIO due on 05/12/2018 PAP EVERY 5 YEARS due on 07/21/2018 HPV EVERY 5 YEARS due on 07/21/2018 COLORECTAL CANCER SCREENING,SEE MODIFIER due on 02/08/2024 DTAP,TDAP,TD(2 - Td) due on 03/20/2025 ONE PNEUMOVAX PRIOR TO AGE 65 Completed INFLUENZA Completed Data reviewed None ASSESSMENT/PLAN: 1. Essential hypertension - ICD9: 401.9, ICD10: I10 (primary diagnosis) - good control - Continue current medication(s) - Recommended regular aerobic exercise. - Recommend home blood pressure monitoring, to bring results in on next visit - Goal of BP <140/90 2. Mixed hyperlipidemia - ICD9: 272.2, ICD10: E78.2 - to be determined upon return of lab results - Continue current medication. - Encouraged following a low fat, low cholesterol diet. - Discussed the benefits of regular aerobic exercise and weight loss. 3. Tobacco abuse - ICD9: 305.1, ICD10: Z72.0 - Cessation encouraged. 4. Fibromyalgia - ICD9: 729.1, ICD10: M79.7 Continue current medications. Continue with [facility] 5. Gastroesophageal reflux disease, esophagitis presence not specified - ICD9: 530.81, ICD10: K21.9 Continue current medications. 6. Morbid obesity (HCC) - ICD9: 278.01, ICD10: E66.01 Recommend healthy eating and exercise 7. Hypothyroidism due to acquired atrophy of thyroid - ICD9: 244.8, 246.8, ICD10: E03.4 - Instructed patient on importance of taking on an empty stomach either first thing in the morning or at bedtime. Continue current medications. 8. Mild asthma without complication, unspecified whether persistent - ICD9: 493.90, ICD10: J45.909 Mild intermittent Asthma stable - Continue current meds - Avoidance of triggers recommended 9. Uncontrolled type 2 diabetes mellitus without complication, without long-term current use of insulin (HCC) - ICD9: 250.02, ICD10: E11.65 uncontrolled - Continue current medications - Check HgA1C, fasting lipid panel, Urine for albumin/creatinine ratio, TSH and CMP 10. Recurrent UTI - ICD9: 599.0, ICD10: N39.0 recurrent - Patient education for prevention given Get urine culture at lab Follow up in 1 month. Mignon Walsh MD The documentation for this note was completed by Magalie Mckeon Ma acting as scribe for Mignon Walsh August 02, 2017 11:46 AM. CNOV Observed: 08/02/2017 Status: COMPLETED Source: ONYX 11:40 AM [facility] REPOSITORY Office Visit (FAMPWS) KATHERIN SUERO ([id number]) 1965 F CHT Date Time Provider Department 08/02/17 11:40 AM MIGNON WALSH FAMPWS During your visit today, we recorded the following information about you: Temperature Pulse Respiration Blood pressure 98.9 degrees 72/minute 18/minute 118/70 Weight 136.1 kg Mignon Walsh 08/02/2017 1:34 PM Signed Chief Complaint Patient presents with: F/U 1 month HPI Katherin Suero is a 51 year old female who presents here today for 1 month follow up. Headache: sharp pain, constant for the last 2 weeks. Has been under a lot of stress so thought maybe it was a tension headache. Nothing seems to make it better. She has been taking Ibuprofen 800 mg for pain. Has been having issues with feeling light headed. DM: states she checks sugars once daily, unable to give me results. She stated they readings were doing well but as of late the readings have been higher. No hypoglycemic episodes. Does have Neuropathy of feet. Is taking Gabapentin 800 mg 2 tablets in the AM, 1.5 tablets in the afternoon, and 1 tablet in the PM. Takes Jardiance 10 mg daily and Amaryl 4 mg daily. HTN: does not check BP at home. Is taking Lisinopril daily. No chest pains, dizziness, or SOB. Foot: looks better with Prednisone and Gabapentin. UTI: has been dealing with dark urine, foul odor, pain with urination. No nausea or fever. Ear: left ear pain x 1 month. GERD: controlled on Protonix. Fibromyalgia: follows with [employer]. Taking Prednisone and Cymbalta. Also on Gabapentin 800 mg. Pt gets Toradol injections from [facility]. Hypothyroidism: is taking Synthroid 150 mcg daily. Hyperlipidemia: is taking Lipitor 20 mg daily. Past medical history, appointments, medications, allergies reviewed. Previous Medical History PAST MEDICAL HISTORY Diagnosis Date - Asthma with exacerbation - Chronic back pain - Chronic bronchitis (HCC) 06/[address] Ponce - Chronic gastritis egd 02/07/14 - Depression Dr. [facility] - Dyslipidemia elevated TG, low HDL - H. pylori infection 06/2013 - Hypothyroidism - Impaired fasting glucose 06/2013 - Leukocytosis - Mitral valve disorders(424.0) MILD PROLAPSE NO REGUGITATION - Neuropathy ([facility]) b/l feet - NIMESH (obstructive sleep apnea) - Osteoarthritis of both knees 08/2013 - Psoriatic arthritis ([facility]) Dr. Rebecca Burgess - Rheumatoid arthritis ([facility]) - RLL pneumonia ([facility]) 04/19/13 - Tobacco use disorder - Unspecified asthma(493.90) - Unspecified essential hypertension Essential hypertension - Viral pneumonia, unspecified Pneumonia Previous Surgical History PAST SURGICAL HISTORY Procedure Laterality Date - CHOLECYSTECTOMY 1995 lap - COLONOSCOP W/ OR W/O BRSH SPEC 02/07/2014 Colonoscopy - DOPPLER ECHO HEART,COMPLETE 09/02/05 EF= 65% - EGD W/O OR W/BRUSH/WASH 02/07/2014 EGD - GASTRIC BYPASS HX 1985 - LEFT HEART CATH,PERCUTANEOUS 12/02/05 NORMAL - LUMBAR SPINE FUSION COMBINED 1992 X6 Family History FAMILY HISTORY Problem Relation Age of Onset - Hypertension Mother - Cancer Father lung 70 - Stroke Maternal Grandfather 81 - Breast Cancer Maternal Aunt Patient Allergies ALLERGIES Allergen Reactions - Macrobid [Nitrofura* Itching Hives and rash - Mri Dye [Contrast D* Vomiting constant vomiting, swell up, NEEDS premedication but still gets sick, not as bad - Ct Scan Dye [Other] Vomiting Vomiting, swelling of face: Needs premedication and gets sick, but not as bad - Fentanyl Intolerance Feels like throat is closing - Metformin GI Upset Has tried immediate release and XR formulation and unable to tolerate either - Sulfa (Sulfonamide * Itching Current Medications Current Outpatient Prescriptions on File Prior to Visit: glimepiride (AMARYL) 4 mg tablet TAKE 1 TABLET BY MOUTH DAILY predniSONE (DELTASONE) 10 mg tablet Take 1 tablet by mouth once daily. abatacept (ORENCIA) 125 mg/mL syrg Inject 125 mg subcutaneously once each week. levothyroxine (SYNTHROID) 150 mcg tablet TAKE 1 TABLET BY MOUTH DAILY BEFORE BREAKFAST. cyclobenzaprine (FLEXERIL) 5 mg tablet TAKE 2 TABLETS BY MOUTH EVERY MORNING AND 1 TABLET IN THE AFTERNOON AND 2 TABLETS AT NIGHT COMPOUNDED PRESCRIPTION Adult diaper: Depends: Size: [id number]: N39.46 Mixed incontinence urge and stress (female)ICD-10: N39.0 Recurrent UTI (urinary tract infection). ibuprofen (MOTRIN) 800 mg tablet Take 1 tablet by mouth every 8 hours as needed for Pain. Take with food. albuterol HFA (PROVENTIL HFA, VENTOLIN HFA) 90 mcg/actuation inhaler Inhale 2 Puffs as instructed every 4 hours as needed. empagliflozin (JARDIANCE) 10 mg tablet Take 1 tablet by mouth once daily. Take 1 tablet once daily in the morning gabapentin (NEURONTIN) 800 mg tablet TAKE 2 TABLETS BY MOUTH EVERY MORNING AND TAKE 1 AND 1/2 TABLETS IN THE AFTERNOON AND TAKE 1 TABLET AT BEDTIME Blood-Glucose Meter monitoring kit Glucose Meter of Choice - Kit - Dx: Type 2 DM - Uncontrolled E11.[address] (PROTONIX) 40 mg tablet TAKE 1 TABLET BY MOUTH DAILY atorvastatin (LIPITOR) 20 mg tablet TAKE 1 TABLET BY MOUTH AT BEDTIME budesonide (PULMICORT FLEXHALER) 180 mcg/actuation aepb Inhale 2 Puffs as instructed twice daily. clonazePAM (KLONOPIN) 0.5 mg tablet Take 1 tablet by mouth twice daily. lisinopril (ZESTRIL, PRINIVIL) 10 mg tablet Take 1 tablet by mouth once daily. COMPOUNDED PRESCRIPTION Powerstep orthotics(L30.9) Dermatitis (primary encounter diagnosis)(72.2) Plantar fasciitis, bilatera(E11.49) Other diabetic neurological complication associated with type 2 diabetes mellitus (HCC) COMPOUNDED PRESCRIPTION Physical therapy ordered for her for a home modification evaluation to evaluate need for lift chair or other DME that will assist patient in home and promote safety. blood sugar diagnostic (BLOOD GLUCOSE TEST) test strip Test blood sugar(s) 1-2 times daily and PRN. Dx: Type 2 DM - Controlled E11.9 Insulin: No BUSPIRONE HCL (BUSPAR ORAL) Take 30 mg by mouth twice daily. albuterol (PROVENTIL) 2.5 mg /3 mL (0.083 %) nebulizer solution Use 3 mL via nebulizer every 4 hours as needed for Wheezing/Shortness of Breath. Use over 5-15minutes. Lancets lancets Test blood sugar(s) one times daily. Dx: Type 2 DM - Controlled E11.9 Insulin: No Lancets lancets Test blood sugar(s) 1-2 times daily. Dx: Type 2 DM - Controlled E11.9 Insulin: No COMPOUNDED PRESCRIPTION Please provide patient with new nebulizer machine and supplies.Diagnosis: Wheezing, dyspnea. DULoxetine (CYMBALTA) 60 mg capsule Take 120 mg by mouth once daily. predniSONE (DELTASONE) 20 mg tablet Take 3 pills daily for 3 days, then 2 pills daily for 3 days, then 1 pill daily for 3 days guaiFENesin (ROBITUSSIN) 100 mg/5 mL syrup Take 10 mL by mouth three times daily as needed. Cholecalciferol, Vitamin D3, (VITAMIN D-3) 2,000 unit cap Take 1 tablet by mouth once daily. ONDANSETRON HCL (ZOFRAN ORAL) Take by mouth. No current facility-administered medications on file prior to visit. Social History Social History Marital status: Single Spouse name: Years of education: Number of children: 2 Occupational History Occupation Employer Comment [employer] Currently on Disab* Social History Main Topics Smoking status: Current Every Day Smoker Packs/day: 1.00 Years: 32.00 Types: Cigarettes Start date: 12/28/1984 Smokeless tobacco: Never Used Alcohol use: No Drug use: No Sexual activity: Not Currently EXAM: BP 118/70 Pulse 72 Temp 37.2 ?C (98.9 ?F) (Tympanic) Resp 18 Wt 136.1 kg (300 lb) LMP 01/27/2006 BMI 44.30 kg/m? General Appearance: Well appearing, alert, in no acute distress, well-hydrated, well nourished., Morbidly obese. Ears: External ears normal, canals clear. Lungs: Lungs clear to auscultation. No wheezing, rhonchi, rales. Heart: RRR without murmur, gallop, or rubs. No ectopy. Abdomen: Normal abdominal exam, Abdomen soft, non-tender. Bowel sounds normal. No masses, organomegaly. Health Maintenance List DILATED RETINAL EXAM due on 12/18/2016 HBA1C due on 10/25/2017 DIABETIC FOOT EXAM due on 11/12/2017 LDL due on 2017 MAMMOGRAM due on 03/31/2018 URINE ALBUMIN CREATININE RATIO due on 05/12/2018 PAP EVERY 5 YEARS due on 07/21/2018 HPV EVERY 5 YEARS due on 07/21/2018 COLORECTAL CANCER SCREENING,SEE MODIFIER due on 02/08/2024 DTAP,TDAP,TD(2 - Td) due on 03/20/2025 ONE PNEUMOVAX PRIOR TO AGE 65 Completed INFLUENZA Completed Data reviewed None ASSESSMENT/PLAN: 1. Essential hypertension - ICD9: 401.9, ICD10: I10 (primary diagnosis) - good control - Continue current medication(s) - Recommended regular aerobic exercise. - Recommend home blood pressure monitoring, to bring results in on next visit - Goal of BP <140/90 2. Mixed hyperlipidemia - ICD9: 272.2, ICD10: E78.2 - to be determined upon return of lab results - Continue current medication. - Encouraged following a low fat, low cholesterol diet. - Discussed the benefits of regular aerobic exercise and weight loss. 3. Tobacco abuse - ICD9: 305.1, ICD10: Z72.0 - Cessation encouraged. 4. Fibromyalgia - ICD9: 729.1, ICD10: M79.7 Continue current medications. Continue with [employer] 5. Gastroesophageal reflux disease, esophagitis presence not specified - ICD9: 530.81, ICD10: K21.9 Continue current medications. 6. Morbid obesity (HCC) - ICD9: 278.01, ICD10: E66.01 Recommend healthy eating and exercise 7. Hypothyroidism due to acquired atrophy of thyroid - ICD9: 244.8, 246.8, ICD10: E03.4 - Instructed patient on importance of taking on an empty stomach either first thing in the morning or at bedtime. Continue current medications. 8. Mild asthma without complication, unspecified whether persistent - ICD9: 493.90, ICD10: J45.909 Mild intermittent Asthma stable - Continue current meds - Avoidance of triggers recommended 9. Uncontrolled type 2 diabetes mellitus without complication, without long-term current use of insulin (HCC) - ICD9: 250.02, ICD10: E11.65 uncontrolled - Continue current medications - Check HgA1C, fasting lipid panel, Urine for albumin/creatinine ratio, TSH and CMP 10. Recurrent UTI - ICD9: 599.0, ICD10: N39.0 recurrent - Patient education for prevention given Get urine culture at lab Follow up in 1 month. Mignon Walsh MD The documentation for this note was completed by Magalie Mckeon Ma acting as scribe for Mignon Walsh. August 02, 2017 11:46 AM. Referring Provider: MIGNON WALSH [[id number]] Allergies As of Date: 08/02/2017 Noted Allergy Reaction MACROBID (NITROFURANTOIN MONOHYD/*11/07/2015 9 - Itching Comments: Hives and rash MRI DYE (CONTRAST DYE) 08/02/2009 11 - Vomiting Comments: constant vomiting, swell up, NEEDS premedication but still gets sick, not as bad ct scan dye [Other] 08/02/2009 11 - Vomiting Comments: Vomiting, swelling of face: Needs premedication and gets sick, but not as bad FENTANYL 05/09/2013 5 - Intolerance Comments: Feels like throat is closing METFORMIN 08/20/2015 8 - GI Upset Comments: Has tried immediate release and XR formulation and unable to tolerate either SULFA (SULFONAMIDE ANTIBIOTICS) 05/09/2013 9 - Itching Date Reviewed: 08/02/2017 Reviewed by: Magalie Mckeon Ma - Fully Assessed Reason for Visit: F/U 1 month [1175] Primary Visit Diagnosis:Essential hypertension [I10] Other Visit Diagnoses:Mixed hyperlipidemia [E78.2] Tobacco abuse [Z72.0] Fibromyalgia [M79.7] Gastroesophageal reflux disease, esophagitis presence not specified [K21.9] Morbid obesity (HCC) [E66.01] Hypothyroidism due to acquired atrophy of thyroid [E03.4] Mild asthma without complication, unspecified whether persistent [J45.909] Uncontrolled type 2 diabetes mellitus without complication, without long-term current use of insulin (HCC) [E11.65] Recurrent UTI [N39.0] Order(s):URINE CULTURE [SQURCUL] Order #: [id number] FUTURE LIPID PANEL BASIC [SQLIPB] Order #: [id number] FUTURE COMP METABOLIC PANEL [SQCMP] Order #: [id number] FUTURE HGB A1C [PFQEN8V] Order #: [id number] FUTURE ALBUMIN/CREAT RATIO RND UR [SQUACR] Order #: [id number] FUTURE TSH BLD [SQTSH] Order #: [id number] FUTURE Prescriptions as of 08/02/2017 Sig: GLIMEPIRIDE 4 MG TABLET TAKE 1 TABLET BY MOUTH DAILY PREDNISONE 10 MG TABLET Take 1 tablet by mouth once d* ABATACEPT 125 MG/ML SUBCUTANE* Inject 125 mg subcutaneously * LEVOTHYROXINE 150 MCG TABLET TAKE 1 TABLET BY MOUTH DAILY * CYCLOBENZAPRINE 5 MG TABLET TAKE 2 TABLETS BY MOUTH EVERY* COMPOUNDED PRESCRIPTION Adult diaper: Depends: Size:* IBUPROFEN 800 MG TABLET Take 1 tablet by mouth every * ALBUTEROL SULFATE HFA 90 MCG/* Inhale 2 Puffs as instructed * EMPAGLIFLOZIN 10 MG TABLET Take 1 tablet by mouth once d* GABAPENTIN 800 MG TABLET TAKE 2 TABLETS BY MOUTH EVERY* BLOOD-GLUCOSE METER KIT Glucose Meter of Choice - Kit* PANTOPRAZOLE 40 MG TABLET,DEL* TAKE 1 TABLET BY MOUTH DAILY ATORVASTATIN 20 MG TABLET TAKE 1 TABLET BY MOUTH AT BED* BUDESONIDE 180 MCG/ACTUATION * Inhale 2 Puffs as instructed * CLONAZEPAM 0.5 MG TABLET Take 1 tablet by mouth twice * LISINOPRIL 10 MG TABLET Take 1 tablet by mouth once d* COMPOUNDED PRESCRIPTION Powerstep orthotics (L30.9* COMPOUNDED PRESCRIPTION Physical therapy ordered for * BLOOD SUGAR DIAGNOSTIC STRIPS Test blood sugar(s) 1- 2 time* BUSPAR ORAL Take 30 mg by mouth twice tyrell* ALBUTEROL SULFATE 2.5 MG/3 ML* Use 3 mL via nebulizer every * LANCETS Test blood sugar(s) one times* LANCETS Test blood sugar(s) 1- 2 times* COMPOUNDED PRESCRIPTION Please provide patient with n* DULOXETINE 60 MG CAPSULE,SERG* Take 120 mg by mouth once tyrell* Problem List As Of Date 08/02/2017 Noted Resolved Shortness of breath [R06.02] 07/01/2015 Asthma with exacerbation [J45.901] 07/01/2015 Viral pneumonia, unspecified [J12.9] 07/01/2015 More... MITRAL VALVE DISORDER [I05.9] Tobacco use disorder [F17.200] 07/01/2015 Essential hypertension [I10] More... MIXED HYPERLIPIDEMIA [E78.2] More... COUGH [R05] INVALID FOR* INCONTINENCE W/O SENSORY AWARENESS [N39.42] INVALID FOR*07/01/2015 URGE AND STRESS MIXED INCONTINENCE [N39.46] INVALID FOR* Morbid obesity with BMI of 45.0-49.9, adult [E6*INVALID FOR*07/01/2015 Tobacco abuse [Z72.0] INVALID FOR* Hyperlipidemia [E78.5] INVALID FOR*04/10/2016 Fibromyalgia [M79.7] INVALID FOR* Hypothyroidism [E03.9] INVALID FOR*07/01/2015 Asthma with COPD ([facility]) [J44.9] INVALID FOR*07/01/2015 RLL pneumonia [J18.1] INVALID FOR*04/10/2016 GERD (gastroesophageal reflux disease) [K21.9] INVALID FOR* H. 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*INVALID FOR* NIMESH (obstructive sleep apnea) [G47.33] INVALID FOR* Asthma [J45.909] INVALID FOR* Seronegative rheumatoid arthritis (HCC) [M06.00]INVALID FOR* Controlled substance agreement signed [Z79.899] INVALID FOR* Bladder spasms [N32.89] INVALID FOR* Uncontrolled type 2 diabetes mellitus without c*INVALID FOR* Recurrent UTI [N39.0] INVALID FOR* Long-term use of immunosuppressant medication [*INVALID FOR* Medications Discontinued During This Encounter predniSONE (DELTASONE) 20 mg tablet 18 t* 0 07/01/2017 08/02/2017 Sig: Take 3 pills daily for 3 days, then 2 pills daily for 3 days, then 1 pill daily for 3 days Disc: Reason for discontinue is not on file. guaiFENesin (ROBITUSSIN) 100 mg/5 mL* 236 * 0 06/28/2017 08/02/2017 Route: ORAL Sig: Take 10 mL by mouth three times daily as needed. Disc: Reason for discontinue is not on file. Cholecalciferol, Vitamin D3, (VITAMI* 90 c* 3 08/27/2016 08/02/2017 Route: ORAL Sig: Take 1 tablet by mouth once daily. Disc: Reason for discontinue is not on file. ONDANSETRON HCL (ZOFRAN ORAL) 08/02/2017 Class: Historical Med Route: ORAL Sig: Take by mouth. Disc: Reason for discontinue is not on file. Disposition: Return in about 1 month (around 09/02/2017). Follow-up and Disposition History Recorded Encounter Status:Closed by MIGNON WALSH MD on 08/02/17 PROGRESS Observed: 07/01/2017 Status: COMPLETED Source: ONYX 4:46 PM [facility] REPOSITORY HNO ID: [id number] Author: Mignon Walsh Service: (none) Author Type: Physician Type: Progress Notes Filed: 07/01/2017 5:55 PM Note Text: Chief Complaint Patient presents with: Recheck Rash: L foot 4-5 days ago, painful HPI Katherin Suero is a 51 year old female who presents here today for a follow up. DM - Checking sugars once daily. Fasting this am 111 with high when she has an infection which she believes she has now. Currently taking Amaryl 4 mg once daily. Pain - Severe b/l foot pain with numbness, tingling and burning. Would like to take Lyrica for pain. She is on gabapentin per Rheumatology. Rash - Located on L foot started 4-5 days ago, painful. Denies itching. Mild swelling. She is on prednisone 40 mg daily. Anxiety - Discuss Buspar; does not feel like this is helping much. Past medical history, appointments, medications, allergies reviewed. Previous Medical History PAST MEDICAL HISTORY Diagnosis Date - Asthma with exacerbation - Chronic back pain - Chronic bronchitis ([facility]) 06/[address] Ponce - Chronic gastritis egd 02/07/14 - Depression [facility]. [facility] - Dyslipidemia elevated TG, low HDL - H. pylori infection 06/2013 - Hypothyroidism - Impaired fasting glucose 06/2013 - Leukocytosis - Mitral valve disorders(424.0) MILD PROLAPSE NO REGUGITATION - Neuropathy ([facility]) b/l feet - NIMESH (obstructive sleep apnea) - Osteoarthritis of both knees 08/2013 - Psoriatic arthritis ([facility]) Dr. Rebecca Burgess - Rheumatoid arthritis ([facility]) - RLL pneumonia ([facility]) 04/19/13 - Tobacco use disorder - Unspecified asthma(493.90) - Unspecified essential hypertension Essential hypertension - Viral pneumonia, unspecified Pneumonia Previous Surgical History PAST SURGICAL HISTORY Procedure Laterality Date - CHOLECYSTECTOMY 1995 lap - COLONOSCOP W/ OR W/O BRSH SPEC 02/07/2014 Colonoscopy - DOPPLER ECHO HEART,COMPLETE 09/02/05 EF= 65% - EGD W/O OR W/BRUSH/WASH 02/07/2014 EGD - GASTRIC BYPASS HX 1986 - LEFT HEART CATH,PERCUTANEOUS 12/02/05 NORMAL - LUMBAR SPINE FUSION COMBINED 1992 X6 Family History FAMILY HISTORY Problem Relation Age of Onset - Hypertension Mother - Cancer Father lung 70 - Stroke Maternal Grandfather 81 - Breast Cancer Maternal Aunt Patient Allergies ALLERGIES Allergen Reactions - Macrobid [Nitrofura* Itching Hives and rash - Mri Dye [Contrast D* Vomiting constant vomiting, swell up, NEEDS premedication but still gets sick, not as bad - Fentanyl Intolerance Feels like throat is closing - Metformin GI Upset Has tried immediate release and XR formulation and unable to tolerate either - Sulfa (Sulfonamide * Itching - Ct Scan Dye [Other] Vomiting Vomiting, swelling of face: Needs premedication and gets sick, but not as bad Current Medications Current Outpatient Prescriptions on File Prior to Visit: guaiFENesin (ROBITUSSIN) 100 mg/5 mL syrup Take 10 mL by mouth three times daily as needed. predniSONE (DELTASONE) 20 mg tablet Take 2 tablets by mouth once daily for 5 days. cyclobenzaprine (FLEXERIL) 5 mg tablet TAKE 2 TABLETS BY MOUTH EVERY MORNING AND 1 TABLET IN THE AFTERNOON AND 2 TABLETS AT NIGHT COMPOUNDED PRESCRIPTION Adult diaper: Depends: Size: [id number]: N39.46 Mixed incontinence urge and stress (female)ICD-10: N39.0 Recurrent UTI (urinary tract infection). predniSONE (DELTASONE) 10 mg tablet Take 1 tablet by mouth once daily. ibuprofen (MOTRIN) 800 mg tablet Take 1 tablet by mouth every 8 hours as needed for Pain. Take with food. abatacept (ORENCIA) 125 mg/mL syrg Inject 125 mg subcutaneously once each week. albuterol HFA (PROVENTIL HFA, VENTOLIN HFA) 90 mcg/actuation inhaler Inhale 2 Puffs as instructed every 4 hours as needed. empagliflozin (JARDIANCE) 10 mg tablet Take 1 tablet by mouth once daily. Take 1 tablet once daily in the morning gabapentin (NEURONTIN) 800 mg tablet TAKE 2 TABLETS BY MOUTH EVERY MORNING AND TAKE 1 AND 1/2 TABLETS IN THE AFTERNOON AND TAKE 1 TABLET AT BEDTIME Blood-Glucose Meter monitoring kit Glucose Meter of Choice - Kit - Dx: Type 2 DM - Uncontrolled E11.[address] (PROTONIX) 40 mg tablet TAKE 1 TABLET BY MOUTH DAILY atorvastatin (LIPITOR) 20 mg tablet TAKE 1 TABLET BY MOUTH AT BEDTIME budesonide (PULMICORT FLEXHALER) 180 mcg/actuation aepb Inhale 2 Puffs as instructed twice daily. glimepiride (AMARYL) 4 mg tablet TAKE 1 TABLET BY MOUTH DAILY clonazePAM (KLONOPIN) 0.5 mg tablet Take 1 tablet by mouth twice daily. lisinopril (ZESTRIL, PRINIVIL) 10 mg tablet Take 1 tablet by mouth once daily. COMPOUNDED PRESCRIPTION Powerstep orthotics(L30.9) Dermatitis (primary encounter diagnosis)(72.2) Plantar fasciitis, bilatera(E11.49) Other diabetic neurological complication associated with type 2 diabetes mellitus (HCC) COMPOUNDED PRESCRIPTION Physical therapy ordered for her for a home modification evaluation to evaluate need for lift chair or other DME that will assist patient in home and promote safety. Cholecalciferol, Vitamin D3, (VITAMIN D-3) 2,000 unit cap Take 1 tablet by mouth once daily. ONDANSETRON HCL (ZOFRAN ORAL) Take by mouth. blood sugar diagnostic (BLOOD GLUCOSE TEST) test strip Test blood sugar(s) 1-2 times daily and PRN. Dx: Type 2 DM - Controlled E11.9 Insulin: No BUSPIRONE HCL (BUSPAR ORAL) Take 30 mg by mouth twice daily. albuterol (PROVENTIL) 2.5 mg /3 mL (0.083 %) nebulizer solution Use 3 mL via nebulizer every 4 hours as needed for Wheezing/Shortness of Breath. Use over 5-15minutes. CPAP Initiate CPAP @ 14 cm of water with humidification. Mask (per patient preference) optional chin strap (if indicated) , filters, tubing, heated humidifier and lifetime supplies. Set EPR to 3. DX: NIMESH Lancets lancets Test blood sugar(s) one times daily. Dx: Type 2 DM - Controlled E11.9 Insulin: No Lancets lancets Test blood sugar(s) 1-2 times daily. Dx: Type 2 DM - Controlled E11.9 Insulin: No COMPOUNDED PRESCRIPTION Please provide patient with new nebulizer machine and supplies.Diagnosis: Wheezing, dyspnea. DULoxetine (CYMBALTA) 60 mg capsule Take 120 mg by mouth once daily. levothyroxine (SYNTHROID) 150 mcg tablet TAKE 1 TABLET BY MOUTH DAILY BEFORE BREAKFAST. No current facility-administered medications on file prior to visit. Social History Social History Marital status: Single Spouse name: Years of education: Number of children: 2 Occupational History Occupation Employer Comment [employer] Currently on Disab* Social History Main Topics Smoking status: Current Every Day Smoker Packs/day: 1.00 Years: 32.00 Types: Cigarettes Start date: 12/28/1984 Smokeless status: Never Used Alcohol use: No Drug use: No Sexual activity: Not Currently EXAM: BP 114/82 (BP Site: Right Arm, BP Position: Sitting, BP Cuff Size: Regular Adult) Pulse 82 Resp 20 Wt (!) 141.1 kg (311 lb) LMP 01/27/2006 BMI 45.93 kg/m2 General Appearance: Well appearing, alert, in no acute distress, well-hydrated, well nourished., Morbidly obese. Lungs: diffuse rhonchi. Heart: RRR without murmur, gallop, or rubs. No ectopy. Feet: erythematous discrete rash on left foot, some swelling on dorsum of foot. Health Maintenance List DILATED RETINAL EXAM due on 12/18/2016 HBA1C due on 10/25/2017 DIABETIC FOOT EXAM due on 11/12/2017 LDL due on 2017 MAMMOGRAM due on 03/31/2018 URINE ALBUMIN CREATININE RATIO due on 05/12/2018 PAP EVERY 5 YEARS due on 07/21/2018 HPV EVERY 5 YEARS due on 07/21/2018 COLORECTAL CANCER SCREENING,SEE MODIFIER due on 02/08/2024 TETANUS due on 03/20/2025 ONE PNEUMOVAX PRIOR TO AGE 65 Completed INFLUENZA Completed Data reviewed Future orders ASSESSMENT/PLAN: 1. Cellulitis of skin - ICD9: 682.9, ICD10: L03.90 (primary diagnosis) - Begin treatment with Augmentin 2. Uncontrolled type 2 diabetes mellitus without complication, without long-term current use of insulin (HCC) - ICD9: 250.02, ICD10: E11.65 3. Seronegative rheumatoid arthritis (HCC) - ICD9: 714.0, ICD10: M06.00 Follow siwth Rheum 4. Morbid obesity (HCC) - ICD9: 278.01, ICD10: E66.01 5. Coronary artery disease involving gambell coronary artery of gambell heart without angina pectoris - ICD9: 414.01, ICD10: I25.10 Clinically stable 6. NIMESH (obstructive sleep apnea) - ICD9: 327.23, ICD10: G47.33 7. Pain - ICD9: 780.96, ICD10: R52 Increase prednisone for swelling and pain in foot 8. Anxiety - ICD9: 300.00, ICD10: F41.9 9. Fibromyalgia - ICD9: 729.1, ICD10: M79.7 10. Essential hypertension - ICD9: 401.9, ICD10: I10 Follow up in 1 month Mignon Walsh MD The documentation for this note was completed by Cindy Carlin Ma acting as scribe for Mignon Walsh MD. July 01, 2017 4:46 PM. CNOV Observed: 07/01/2017 Status: COMPLETED Source: ONYX 4:40 PM [facility] REPOSITORY Office Visit (FAMPWS) KATHERIN SUERO ([id number]) 1965 F [facility] Date Time Provider Department 07/01/17 4:40 PM MIGNON WALSH FAMMarielaWS During your visit today, we recorded the following information about you: Pulse Respiration Blood pressure Weight 82/minute 20/minute 114/82 141.1 kg Mignon Walsh MD 07/01/2017 5:55 PM Signed Chief Complaint Patient presents with: Recheck Rash: L foot 4-5 days ago, painful HPI Katherin Suero is a 51 year old female who presents here today for a follow up. DM - Checking sugars once daily. Fasting this am 111 with high when she has an infection which she believes she has now. Currently taking Amaryl 4 mg once daily. Pain - Severe b/l foot pain with numbness, tingling and burning. Would like to take Lyrica for pain. She is on gabapentin per Rheumatology. Rash - Located on L foot started 4-5 days ago, painful. Denies itching. Mild swelling. She is on prednisone 40 mg daily. Anxiety - Discuss Buspar; does not feel like this is helping much. Past medical history, appointments, medications, allergies reviewed. Previous Medical History PAST MEDICAL HISTORY Diagnosis Date - Asthma with exacerbation - Chronic back pain - Chronic bronchitis ([facility]) 06/[address] Ponce - Chronic gastritis egd 02/07/14 - Depression [facility] - Dyslipidemia elevated TG, low HDL - H. pylori infection 06/2013 - Hypothyroidism - Impaired fasting glucose 06/2013 - Leukocytosis - Mitral valve disorders(424.0) MILD PROLAPSE NO REGUGITATION - Neuropathy ([facility]) b/l feet - NIMESH (obstructive sleep apnea) - Osteoarthritis of both knees 08/2013 - Psoriatic arthritis ([facility]) Dr. Rebecca Burgess - Rheumatoid arthritis ([facility]) - RLL pneumonia ([facility]) 04/19/13 - Tobacco use disorder - Unspecified asthma(493.90) - Unspecified essential hypertension Essential hypertension - Viral pneumonia, unspecified Pneumonia Previous Surgical History PAST SURGICAL HISTORY Procedure Laterality Date - CHOLECYSTECTOMY 1995 lap - COLONOSCOP W/ OR W/O BRSH SPEC 02/07/2014 Colonoscopy - DOPPLER ECHO HEART,COMPLETE 09/02/05 EF= 65% - EGD W/O OR W/BRUSH/WASH 02/07/2014 EGD - GASTRIC BYPASS HX 1985 - LEFT HEART CATH,PERCUTANEOUS 12/02/05 NORMAL - LUMBAR SPINE FUSION COMBINED 1992 X6 Family History FAMILY HISTORY Problem Relation Age of Onset - Hypertension Mother - Cancer Father lung 70 - Stroke Maternal Grandfather 81 - Breast Cancer Maternal Aunt Patient Allergies ALLERGIES Allergen Reactions - Macrobid [Nitrofura* Itching Hives and rash - Mri Dye [Contrast D* Vomiting constant vomiting, swell up, NEEDS premedication but still gets sick, not as bad - Fentanyl Intolerance Feels like throat is closing - Metformin GI Upset Has tried immediate release and XR formulation and unable to tolerate either - Sulfa (Sulfonamide * Itching - Ct Scan Dye [Other] Vomiting Vomiting, swelling of face: Needs premedication and gets sick, but not as bad Current Medications Current Outpatient Prescriptions on File Prior to Visit: guaiFENesin (ROBITUSSIN) 100 mg/5 mL syrup Take 10 mL by mouth three times daily as needed. predniSONE (DELTASONE) 20 mg tablet Take 2 tablets by mouth once daily for 5 days. cyclobenzaprine (FLEXERIL) 5 mg tablet TAKE 2 TABLETS BY MOUTH EVERY MORNING AND 1 TABLET IN THE AFTERNOON AND 2 TABLETS AT NIGHT COMPOUNDED PRESCRIPTION Adult diaper: Depends: Size: [id number]: N39.46 Mixed incontinence urge and stress (female)ICD-10: N39.0 Recurrent UTI (urinary tract infection). predniSONE (DELTASONE) 10 mg tablet Take 1 tablet by mouth once daily. ibuprofen (MOTRIN) 800 mg tablet Take 1 tablet by mouth every 8 hours as needed for Pain. Take with food. abatacept (ORENCIA) 125 mg/mL syrg Inject 125 mg subcutaneously once each week. albuterol HFA (PROVENTIL HFA, VENTOLIN HFA) 90 mcg/actuation inhaler Inhale 2 Puffs as instructed every 4 hours as needed. empagliflozin (JARDIANCE) 10 mg tablet Take 1 tablet by mouth once daily. Take 1 tablet once daily in the morning gabapentin (NEURONTIN) 800 mg tablet TAKE 2 TABLETS BY MOUTH EVERY MORNING AND TAKE 1 ANDamp; 1/2 TABLETS IN THE AFTERNOON AND TAKE 1 TABLET AT BEDTIME Blood-Glucose Meter monitoring kit Glucose Meter of Choice - Kit - Dx: Type 2 DM - Uncontrolled E11.[address] (PROTONIX) 40 mg tablet TAKE 1 TABLET BY MOUTH DAILY atorvastatin (LIPITOR) 20 mg tablet TAKE 1 TABLET BY MOUTH AT BEDTIME budesonide (PULMICORT FLEXHALER) 180 mcg/actuation aepb Inhale 2 Puffs as instructed twice daily. glimepiride (AMARYL) 4 mg tablet TAKE 1 TABLET BY MOUTH DAILY clonazePAM (KLONOPIN) 0.5 mg tablet Take 1 tablet by mouth twice daily. lisinopril (ZESTRIL, PRINIVIL) 10 mg tablet Take 1 tablet by mouth once daily. COMPOUNDED PRESCRIPTION Powerstep orthotics(L30.9) Dermatitis (primary encounter diagnosis)(72.2) Plantar fasciitis, bilatera(E11.49) Other diabetic neurological complication associated with type 2 diabetes mellitus (HCC) COMPOUNDED PRESCRIPTION Physical therapy ordered for her for a ANDquot;home modification evaluationANDquot; to evaluate need for lift chair or other DME that will assist patient in home and promote safety. Cholecalciferol, Vitamin D3, (VITAMIN D-3) 2,000 unit cap Take 1 tablet by mouth once daily. ONDANSETRON HCL (ZOFRAN ORAL) Take by mouth. blood sugar diagnostic (BLOOD GLUCOSE TEST) test strip Test blood sugar(s) 1-2 times daily and PRN. Dx: Type 2 DM - Controlled E11.9 Insulin: No BUSPIRONE HCL (BUSPAR ORAL) Take 30 mg by mouth twice daily. albuterol (PROVENTIL) 2.5 mg /3 mL (0.083 %) nebulizer solution Use 3 mL via nebulizer every 4 hours as needed for Wheezing/Shortness of Breath. Use over 5-15minutes. CPAP Initiate CPAP @ 14 cm of water with humidification. Mask (per patient preference) optional chin strap (if indicated) , filters, tubing, heated humidifier and lifetime supplies. Set EPR to 3. DX: NIMESH Lancets lancets Test blood sugar(s) one times daily. Dx: Type 2 DM - Controlled E11.9 Insulin: No Lancets lancets Test blood sugar(s) 1-2 times daily. Dx: Type 2 DM - Controlled E11.9 Insulin: No COMPOUNDED PRESCRIPTION Please provide patient with new nebulizer machine and supplies.Diagnosis: Wheezing, dyspnea. DULoxetine (CYMBALTA) 60 mg capsule Take 120 mg by mouth once daily. levothyroxine (SYNTHROID) 150 mcg tablet TAKE 1 TABLET BY MOUTH DAILY BEFORE BREAKFAST. No current facility-administered medications on file prior to visit. Social History Social History Marital status: Single Spouse name: Years of education: Number of children: 2 Occupational History Occupation Employer Comment [employer] Currently on Disab* Social History Main Topics Smoking status: Current Every Day Smoker Packs/day: 1.00 Years: 32.00 Types: Cigarettes Start date: 12/28/1984 Smokeless status: Never Used Alcohol use: No Drug use: No Sexual activity: Not Currently EXAM: BP 114/82 (BP Site: Right Arm, BP Position: Sitting, BP Cuff Size: Regular Adult) Pulse 82 Resp 20 Wt (!) 141.1 kg (311 lb) LMP 01/27/2006 BMI 45.93 kg/m2 General Appearance: Well appearing, alert, in no acute distress, well-hydrated, well nourished., Morbidly obese. Lungs: diffuse rhonchi. Heart: RRR without murmur, gallop, or rubs. No ectopy. Feet: erythematous discrete rash on left foot, some swelling on dorsum of foot. Health Maintenance List DILATED RETINAL EXAM due on 12/18/2016 HBA1C due on 10/25/2017 DIABETIC FOOT EXAM due on 11/12/2017 LDL due on 2017 MAMMOGRAM due on 03/31/2018 URINE ALBUMIN CREATININE RATIO due on 05/12/2018 PAP EVERY 5 YEARS due on 07/21/2018 HPV EVERY 5 YEARS due on 07/21/2018 COLORECTAL CANCER SCREENING,SEE MODIFIER due on 02/08/2024 TETANUS due on 03/20/2025 ONE PNEUMOVAX PRIOR TO AGE 65 Completed INFLUENZA Completed Data reviewed Future orders ASSESSMENT/PLAN: 1. Cellulitis of skin - ICD9: 682.9, ICD10: L03.90 (primary diagnosis) - Begin treatment with Augmentin 2. Uncontrolled type 2 diabetes mellitus without complication, without long-term current use of insulin (HCC) - ICD9: 250.02, ICD10: E11.65 3. Seronegative rheumatoid arthritis (HCC) - ICD9: 714.0, ICD10: M06.00 Follow siwth Rheum 4. Morbid obesity (HCC) - ICD9: 278.01, ICD10: E66.01 5. Coronary artery disease involving gambell coronary artery of gambell heart without angina pectoris - ICD9: 414.01, ICD10: I25.10 Clinically stable 6. NIMESH (obstructive sleep apnea) - ICD9: 327.23, ICD10: G47.33 7. Pain - ICD9: 780.96, ICD10: R52 Increase prednisone for swelling and pain in foot 8. Anxiety - ICD9: 300.00, ICD10: F41.9 9. Fibromyalgia - ICD9: 729.1, ICD10: M79.7 10. Essential hypertension - ICD9: 401.9, ICD10: I10 Follow up in 1 month Mignon Walsh MD The documentation for this note was completed by Cindy Carlin Ma acting as scribe for Mignon Walsh MD. July 01, 2017 4:46 PM. Referring Provider: SELF [[id number]] Allergies As of Date: 07/01/2017 Noted Allergy Reaction MACROBID (NITROFURANTOIN MONOHYD/*11/07/2015 9 - Itching Comments: Hives and rash MRI DYE (CONTRAST DYE) 08/02/2009 11 - Vomiting Comments: constant vomiting, swell up, NEEDS premedication but still gets sick, not as bad FENTANYL 05/09/2013 5 - Intolerance Comments: Feels like throat is closing METFORMIN 08/20/2015 8 - GI Upset Comments: Has tried immediate release and XR formulation and unable to tolerate either SULFA (SULFONAMIDE ANTIBIOTICS) 05/09/2013 9 - Itching ct scan dye [Other] 08/02/2009 11 - Vomiting Comments: Vomiting, swelling of face: Needs premedication and gets sick, but not as bad Date Reviewed: 07/01/2017 Reviewed by: Cindy Carlin Ma - Fully Assessed Reason for Visit: Recheck [92] Rash [1087] Cmt: L foot 4-5 days ago, painful Primary Visit Diagnosis:Cellulitis of skin [L03.90] Other Visit Diagnoses:Uncontrolled type 2 diabetes mellitus without complication, without long-term current use of insulin (HCC) [E11.65] Seronegative rheumatoid arthritis (HCC) [M06.00] Morbid obesity ([facility]) [E66.01] Coronary artery disease involving gambell coronary artery of gambell heart without angina pectoris [I25.10] NIMESH (obstructive sleep apnea) [G47.33] Pain [R52] Anxiety [F41.9] Fibromyalgia [M79.7] Essential hypertension [I10] Order(s):amoxicillin-clavulanic acid (AUGMENTIN) 875-125 mg per tabletTake 1 tablet by mouth twice daily for 10 days.Disp: 20 tabletRfl: 0 predniSONE (DELTASONE) 20 mg tabletTake 3 pills daily for 3 days, then 2 pills daily for 3 days, then 1 pill daily for 3 daysDisp: 18 tabletRfl: 0 Prescriptions as of 07/01/2017 Sig: GUAIFENESIN 100 MG/5 ML ORAL * Take 10 mL by mouth three mariza* CYCLOBENZAPRINE 5 MG TABLET TAKE 2 TABLETS BY MOUTH EVERY* COMPOUNDED PRESCRIPTION Adult diaper: Depends: Size:* IBUPROFEN 800 MG TABLET Take 1 tablet by mouth every * ABATACEPT 125 MG/ML SUBCUTANE* Inject 125 mg subcutaneously * ALBUTEROL SULFATE HFA 90 MCG/* Inhale 2 Puffs as instructed * EMPAGLIFLOZIN 10 MG TABLET Take 1 tablet by mouth once d* GABAPENTIN 800 MG TABLET TAKE 2 TABLETS BY MOUTH EVERY* BLOOD-GLUCOSE METER KIT Glucose Meter of Choice - Kit* PANTOPRAZOLE 40 MG TABLET,DEL* TAKE 1 TABLET BY MOUTH DAILY ATORVASTATIN 20 MG TABLET TAKE 1 TABLET BY MOUTH AT BED* BUDESONIDE 180 MCG/ACTUATION * Inhale 2 Puffs as instructed * GLIMEPIRIDE 4 MG TABLET TAKE 1 TABLET BY MOUTH DAILY CLONAZEPAM 0.5 MG TABLET Take 1 tablet by mouth twice * LISINOPRIL 10 MG TABLET Take 1 tablet by mouth once d* COMPOUNDED PRESCRIPTION Powerstep orthotics (L30.9* COMPOUNDED PRESCRIPTION Physical therapy ordered for * CHOLECALCIFEROL (VITAMIN D3) * Take 1 tablet by mouth once d* ZOFRAN ORAL Take by mouth. BLOOD SUGAR DIAGNOSTIC STRIPS Test blood sugar(s) 1- 2 time* BUSPAR ORAL Take 30 mg by mouth twice tyrell* ALBUTEROL SULFATE 2.5 MG/3 ML* Use 3 mL via nebulizer every * LANCETS Test blood sugar(s) one times* LANCETS Test blood sugar(s) 1- 2 times* COMPOUNDED PRESCRIPTION Please provide patient with n* DULOXETINE 60 MG CAPSULE,SERG* Take 120 mg by mouth once tyrell* AMOXICILLIN 875 MG-POTASSIUM * Take 1 tablet by mouth twice * PREDNISONE 20 MG TABLET Take 3 pills daily for 3 days* LEVOTHYROXINE 150 MCG TABLET TAKE 1 TABLET BY MOUTH DAILY * Problem List As Of Date 07/01/2017 Noted Resolved Shortness of breath [R06.02] 07/01/2015 Asthma with exacerbation [J45.901] 07/01/2015 Viral pneumonia, unspecified [J12.9] 07/01/2015 More... MITRAL VALVE DISORDER [I05.9] Tobacco use disorder [F17.200] 07/01/2015 Essential hypertension [I10] More... MIXED HYPERLIPIDEMIA [E78.2] More... COUGH [R05] INVALID FOR* INCONTINENCE W/O SENSORY AWARENESS [N39.42] INVALID FOR*07/01/2015 URGE AND STRESS MIXED INCONTINENCE [N39.46] INVALID FOR* Morbid obesity with BMI of 45.0-49.9, adult [E6*INVALID FOR*07/01/2015 Tobacco abuse [Z72.0] INVALID FOR* Hyperlipidemia [E78.5] INVALID FOR*04/10/2016 Fibromyalgia [M79.7] INVALID FOR* Hypothyroidism [E03.9] INVALID FOR*07/01/2015 Asthma with COPD ([facility]) [J44.9] INVALID FOR*07/01/2015 RLL pneumonia [J18.1] INVALID FOR*04/10/2016 GERD (gastroesophageal reflux disease) [K21.9] INVALID FOR* H. 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*INVALID FOR* NIMESH (obstructive sleep apnea) [G47.33] INVALID FOR* Asthma [J45.909] INVALID FOR* Seronegative rheumatoid arthritis ([facility]) [M06.00]INVALID FOR* Controlled substance agreement signed [Z79.899] INVALID FOR* Bladder spasms [N32.89] INVALID FOR* Uncontrolled type 2 diabetes mellitus without c*INVALID FOR* Recurrent UTI [N39.0] INVALID FOR* Long-term use of immunosuppressant medication [*INVALID FOR* Prescriptions ordered this encounter Disp Refills Start End AMOXICILLIN 875 MG-POTASSIUM CLAVULA* 20 t* 0 07/01/2017 07/11/2017 Route: ORAL Sig: Take 1 tablet by mouth twice daily for 10 days. PREDNISONE 20 MG TABLET 18 t* 0 07/01/2017 Sig: Take 3 pills daily for 3 days, then 2 pills daily for 3 days, then 1 pill daily for 3 days Medications Discontinued During This Encounter doxycycline monohydrate (MONODOX) 10* 10 c* 0 06/08/2017 07/01/2017 Route: ORAL Sig: Take 1 capsule by mouth twice daily. Disc: Course of therapy completed sitaGLIPtin (JANUVIA) 100 mg tablet 30 t* 5 05/04/2017 07/01/2017 Route: ORAL Sig: Take 1 tablet by mouth once daily. Disc: Course of therapy completed benzonatate (TESSALON PERLE) 100 mg * 40 c* 0 04/27/2017 07/01/2017 Route: ORAL Sig: Take 1 capsule by mouth three times daily as needed for Cough. Disc: Not on Formulary ketoconazole (NIZORAL) 2 % cream 60 g 5 12/16/2016 07/01/2017 Route: TOPICAL Sig: Apply 1 application to affected area once daily. Disc: Course of therapy completed predniSONE (DELTASONE) 20 mg tablet 10 t* 0 06/28/2017 07/01/2017 Route: ORAL Sig: Take 2 tablets by mouth once daily for 5 days. Disc: Reason for discontinue is not on file. predniSONE (DELTASONE) 10 mg tablet 30 t* 0 06/08/2017 07/01/2017 Route: ORAL Sig: Take 1 tablet by mouth once daily. Disc: Reason for discontinue is not on file. CPAP 1 De* 0 08/20/2015 07/01/2017 Class: Print RX Sig: Initiate CPAP @ 14 cm of water with humidification. Mask (per patient preference) optional chin strap (if indicated) , filters, tubing, heated humidifier and lifetime supplies. Set EPR to 3. DX: NIMESH Disc: Reason for discontinue is not on file. Disposition: Return in about 1 month (around 07/31/2017). Follow-up and Disposition History Recorded Encounter Status:Closed by MIGNON WALSH MD on 07/01/17 CNOV Observed: 06/17/2017 Status: COMPLETED Source: ONYX 12:40 PM [facility] REPOSITORY Office Visit (KARLEE) KATHERIN SUERO ([id number]) 1965 F C[facility] Date Time Provider Department 06/17/17 12:40 PM CHASE RAMÍREZ (MAP DRAFTER) AKRLEE During your visit today, we recorded the following information about you: Temperature Pulse Blood pressure Weight 97.4 degrees 62/minute 135/67 139.7 kg Height 1.753 m Chase Ramírez APRN.YOAN, SHRAVAN 06/17/2017 3:06 PM Signed Follow-up of joint pain HPI: - Has had prior diagnosis of RA. Initially on plaquenil, stopped due to GI upset. On simponi but then switched to humira. Had been on methotrexate x3 yrs and humira x3 yrs at same time, stopped 6 months prior to initial September visit due to insurance issues. Symptoms were 70% improved on immunosuppression as compared to initial visit. - For 6 years prior to September visit, has had joint pain in MCPs, PIPs, DIPs, and knees. Joint pain improved by 80-90% on steroid courses which were prescribed for lung issues. - In September, established care in [facility] rheumatology. Given improvement with prior immunosuppression, MTX 15mg SC weekly started for possible inflammatory arthritis although not clear. Given referral to dermatology for psoriasis but didn't get evaluated - Around Nov, MTX deleted off medication list so suspects this was stopped around this time. Doesn't recall if any improvement in joint pain on MTX - In August, reported pain in MCPs, PIPs, DIPs, knees, and ankles. Advised to restart MTX SC - In Dec, reported that joint pain a little improved but with persistent GI side effects on MTX SC so switched to arava - Around Feb, stopped arava due to nausea/vomiting. It did help joint pain - In Dec, reported joint pain in hands and knees. Started on enbrel PAST MEDICAL HISTORY Unspecified Asthma(493.90) Viral Pneumonia, Unspecified (Pneumonia) Mitral Valve Disorders (MILD PROLAPSE NO REGUGITATION) Tobacco Use Disorder Unspecified Essential Hypertension (Essential hypertension) Dyslipidemia (elevated TG, low HDL) Leukocytosis Depression (Dr. [facility]on Psychiat[facility]) Rll Pneumonia - 04/19/13 Hypothyroidism Chronic Back Pain Neuropathy (b/l feet) Impaired Fasting Glucose - 06/2013 Chronic Bronchitis (Hcc) - 06/2013 (retirement plan counselor Dr. Ponce) H. Pylori Infection - 06/2013 Leukocytosis Osteoarthritis of Both Knees - 08/2013 PAST SURGICAL HISTORY DOPPLER ECHO HEART,COMPLETE 09/02/05 Comment EF= 65% LEFT HEART CATH,PERCUTANEOUS 12/02/05 Comment NORMAL GASTRIC BYPASS HX 1986 LUMBAR SPINE FUSION COMBINED 1992 Comment X6 CHOLECYSTECTOMY 1995 Comment lap COLONOSCOP W/ OR W/O BRSH SPEC 02/07/2014 Comment Colonoscopy EGD W/O OR W/BRUSH/WASH 02/07/2014 Comment EGD Review of patient's allergies indicates: Mri Dye (Contrast D* Vomiting Comment:constant vomiting, swell up, NEEDS premedication but still gets sick, not as bad Fentanyl Intolerance Sulfa (Sulfonamide * Itching Ct Scan Dye [Other] Vomiting Comment:Vomiting, swelling of face: Needs premedication and gets sick, but not as bad INTERVAL HISTORY: She is here for follow up. She reports increased generalized pain and fatigue. Patient states increased dose of flexeril has not helped her pain. She is requesting a Toradol injection and a steroid taper. She has received toradol injections and steroids from multiple providers recently. She is currently taking prednisone 10 mg daily. She states the steroids only help her pain if the doses are higher. She reports her glucose runs low and typically under 100. However, her most recent A1C was 9.5. Sites of pain: hands, knees, feet, lower back, generalized pain rated 8/10 Joint swelling: hands EMS: yes, lasting a few hours She reports UTI and URI in 05/2017, s/p antibiotics. Symptoms have resolved. Tolerating meds. REVIEW OF SYSTEMS: June 17, 2017 CONSTITUTIONAL: See above: Fever: No Fatigue: Yes Pain: Yes EYES: Pain: Yes-error- patient denies eye pain Redness: No Loss of vision: No Dryness: Yes EAR, NOSE, MOUTH, THROAT: Nose bleeds: No Hearing loss: No Sores in mouth: No Swallowing problems: No Dry mouth: Yes CARDIOVASCULAR: Chest pain: No Swelling in the feet or legs: No RESPIRATORY: Shortness of breath: No Pain with breathing: Yes- not currently Chronic cough: Yes- dry cough Coughing up blood: No , GASTROINTESTINAL: Heartburn: No Nausea: No Diarrhea: No Blood in the stool or black stool: No Abdominal pain: No GENITOURINARY: Blood in urine: No Pain or burning on urination: Yes- no current dysuria MUSCULOSKELETAL: See above: Joint pain: Yes Joint swelling: Yes Morning stiffness in joints: Yes Muscle weakness: No Back pain: Yes SKIN: Rashes: No Sun sensitive rashes: No Color changes of hands or feet in the cold: No Hair loss: No Nail changes: No NEUROLOGICAL: Headaches: No Dizziness: No Numbness or tingling: Yes- b/l extremities and feet Memory loss: No Seizures: No HEMATOLOGIC/LYMPHATIC: Swollen glands: No Anemia: No ALLERGIES/IMMUNOLOGIC: Allergies (other than medications): No Increased susceptibility to infection: No KNOWN MEDICAL CONDITIONS: Diabetes: No Thyroid disease: No High blood pressure: Yes Current Outpatient Prescriptions: cyclobenzaprine (FLEXERIL) 5 mg tablet TAKE 2 TABLETS BY MOUTH EVERY MORNING AND 1 TABLET IN THE AFTERNOON AND 2 TABLETS AT NIGHT COMPOUNDED PRESCRIPTION Adult diaper: Depends: Size: [id number]: N39.46 Mixed incontinence urge and stress (female)ICD-10: N39.0 Recurrent UTI (urinary tract infection). ibuprofen (MOTRIN) 800 mg tablet Take 1 tablet by mouth every 8 hours as needed for Pain. Take with food. abatacept (ORENCIA) 125 mg/mL syrg Inject 125 mg subcutaneously once each week. albuterol HFA (PROVENTIL HFA, VENTOLIN HFA) 90 mcg/actuation inhaler Inhale 2 Puffs as instructed every 4 hours as needed. empagliflozin (JARDIANCE) 10 mg tablet Take 1 tablet by mouth once daily. Take 1 tablet once daily in the morning gabapentin (NEURONTIN) 800 mg tablet TAKE 2 TABLETS BY MOUTH EVERY MORNING AND TAKE 1 ANDamp; 1/2 TABLETS IN THE AFTERNOON AND TAKE 1 TABLET AT BEDTIME Blood-Glucose Meter monitoring kit Glucose Meter of Choice - Kit - Dx: Type 2 DM - Uncontrolled E11.[address] (PROTONIX) 40 mg tablet TAKE 1 TABLET BY MOUTH DAILY atorvastatin (LIPITOR) 20 mg tablet TAKE 1 TABLET BY MOUTH AT BEDTIME budesonide (PULMICORT FLEXHALER) 180 mcg/actuation aepb Inhale 2 Puffs as instructed twice daily. glimepiride (AMARYL) 4 mg tablet TAKE 1 TABLET BY MOUTH DAILY clonazePAM (KLONOPIN) 0.5 mg tablet Take 1 tablet by mouth twice daily. lisinopril (ZESTRIL, PRINIVIL) 10 mg tablet Take 1 tablet by mouth once daily. COMPOUNDED PRESCRIPTION [employer] orthotics(L30.9) Dermatitis (primary encounter diagnosis)(72.2) Plantar fasciitis, bilatera(E11.49) Other diabetic neurological complication associated with type 2 diabetes mellitus (HCC) COMPOUNDED PRESCRIPTION Physical therapy ordered for her for a ANDquot;home modification evaluationANDquot; to evaluate need for lift chair or other DME that will assist patient in home and promote safety. levothyroxine (SYNTHROID) 150 mcg tablet Take 1 tablet by mouth daily before breakfast. Cholecalciferol, Vitamin D3, (VITAMIN D-3) 2,000 unit cap Take 1 tablet by mouth once daily. ONDANSETRON HCL (ZOFRAN ORAL) Take by mouth. blood sugar diagnostic (BLOOD GLUCOSE TEST) test strip Test blood sugar(s) 1-2 times daily and PRN. Dx: Type 2 DM - Controlled E11.9 Insulin: No BUSPIRONE HCL (BUSPAR ORAL) Take 30 mg by mouth twice daily. albuterol (PROVENTIL) 2.5 mg /3 mL (0.083 %) nebulizer solution Use 3 mL via nebulizer every 4 hours as needed for Wheezing/Shortness of Breath. Use over 5-15minutes. Lancets lancets Test blood sugar(s) one times daily. Dx: Type 2 DM - Controlled E11.9 Insulin: No Lancets lancets Test blood sugar(s) 1-2 times daily. Dx: Type 2 DM - Controlled E11.9 Insulin: No COMPOUNDED PRESCRIPTION Please provide patient with new nebulizer machine and supplies.Diagnosis: Wheezing, dyspnea. DULoxetine (CYMBALTA) 60 mg capsule Take 120 mg by mouth once daily. predniSONE (DELTASONE) 10 mg tablet Take 1 tablet by mouth once daily. doxycycline monohydrate (MONODOX) 100 mg capsule Take 1 capsule by mouth twice daily. sitaGLIPtin (JANUVIA) 100 mg tablet Take 1 tablet by mouth once daily. guaiFENesin (ROBITUSSIN) 100 mg/5 mL syrup Take 10 mL by mouth three times daily as needed. benzonatate (TESSALON PERLE) 100 mg capsule Take 1 capsule by mouth three times daily as needed for Cough. ketoconazole (NIZORAL) 2 % cream Apply 1 application to affected area once daily. CPAP Initiate CPAP @ 14 cm of water with humidification. Mask (per patient preference) optional chin strap (if indicated) , filters, tubing, heated humidifier and lifetime supplies. Set EPR to 3. DX: NIMESH No current facility-administered medications for this visit. FAMILY HISTORY Cancer Father Comment: lung 70 Hypertension Mother Stroke Maternal Grandfather Comment: 81 Breast Cancer Maternal Aunt SOCIAL HISTORY: Lives in [place]. Tobacco Use: 1 pack/day, for 28 years. Types: Cigarettes (For the last year 1/2 pack/daily.) Alcohol Use: No Tattoos: Yes PHYSICAL EXAM: BP 135/67 Pulse 62 Temp 36.3 ?C (97.4 ?F) (Oral) Ht 175.3 cm (5' 9ANDquot;) Wt (!) 139.7 kg (308 lb) LMP 01/27/2006 BMI 45.48 kg/m2 CONSTITUTIONAL: Well-appearing, in NAD. SKIN: LE rash. No alopecia. No sclerodactyly, calcinosis, telangiectasias, digitial ulcers, or skin thickening. EYES: No scleral icterus or conjunctivitis, PERRLA. ENT and Mouth: External ears normal. Nares normal. Mucous membranes normal. Oropharynx normal. No oral ulcers. NECK: No lymphadenopathy RESPIRATORY: Diffuse expiratory wheezing bilaterally CARDIOVASCULAR: Regular rate and rhythm, no murmurs or rubs GASTROENTEROLOGY: Normal bowel sounds. Abdomen is soft and non-tender. EXTREMITIES/LYMPH: No edema bilaterally NEURO: Awake, alert and oriented, Normal gait MUSCULOSKELETAL: JOINT APPEARANCE: No erythema or warmth of any upper or lower extremity joint. RANGE OF MOTION: Able to fully close fists and curl fingers bilaterally. SWOLLEN JOINTS/SYNOVITIS: No clear synovitis of any joint. TENDER JOINTS: Diffuse tenderness to palpation of the bilateral shoulders, elbows, wrists, MCPs, PIPs, DIPs, knees, ankles and feet + tenderness to all b/l upper and lower extremity muscles. Labs reviewed and discussed with the patient: Component Latest Ref Rng ANDamp; Units 04/27/2017 Protein, Total 6.3 - 8.0 g/dL 7.1 Albumin 3.9 - 4.9 g/dL 3.8 (L) Calcium 8.5 - 10.2 mg/dL 8.8 Bilirubin, Total 0.2 - 1.3 mg/dL 0.2 Alkaline Phosphatase 32 - 117 U/L 68 AST 13 - 35 U/L 11 (L) Glucose 74 - 99 mg/dL 295 (H) BUN 7 - 21 mg/dL 7 Creatinine 0.58 - 0.96 mg/dL 0.66 Sodium 136 - 144 mmol/L 139 Potassium 3.7 - 5.1 mmol/L 3.7 Chloride 97 - 105 mmol/L 99 CO2 22 - 30 mmol/L 21 (L) Anion Gap 9 - 18 mmol/L 19 (H) ALT 7 - 38 U/L 11 eGFR- ANDgt;60 eGFR-All Other Races . ANDgt;60 Component Latest Ref Rng ANDamp; Units 12/31/2016 WBC 3.70 - 11.00 k/uL 21.06 (H) RBC 3.90 - 5.20 m/uL 4.72 Hemoglobin 11.5 - 15.5 g/dL 12.3 Hematocrit 36.0 - 46.0 % 40.3 MCV 80.0 - 100.0 fL 85.4 MCH 26.0 - 34.0 pG 26.1 MCHC 30.5 - 36.0 g/dL 30.5 RDW-CV 11.5 - 15.0 % 18.6 (H) Platelet Count 150 - 400 k/uL 408 (H) MPV 9.0 - 12.7 fL 10.3 Neut% % 91.7 Abs Neut (ANC) 1.45 - 7.50 k/uL 19.30 (H) Lymph% % 6.7 Abs Lymph 1.00 - 4.00 k/uL 1.42 [place]% % 1.2 Abs [place] ANDlt;0.87 k/uL 0.25 Eosin% % 0.1 Abs Eosin ANDlt;0.46 k/uL 0.03 Baso% % 0.3 Abs Baso ANDlt;0.11 k/uL 0.06 Nucleated Reds 0 /100 WBC 0.0 Absolute nRBC 0.00 k/uL 0.00 Diff Type Auto Diff Creatinine 0.58 - 0.96 mg/dL 0.60 eGFR- ANDgt;60 eGFR-All Other Races . ANDgt;60 AST 13 - 35 U/L 9 (L) ALT 7 - 38 U/L 9 Albumin 3.9 - 4.9 g/dL 3.8 (L) Component Latest Ref Rng ANDamp; Units 2016 Protein, Total 6.3 - 8.0 g/dL 6.8 Albumin 3.9 - 4.9 g/dL 3.8 (L) Calcium 8.5 - 10.2 mg/dL 9.3 Bilirubin, Total 0.2 - 1.3 mg/dL 0.2 Alkaline Phosphatase 32 - 117 U/L 71 AST 13 - 35 U/L 11 (L) Glucose 74 - 99 mg/dL 189 (H) BUN 7 - 21 mg/dL 8 Creatinine 0.58 - 0.96 mg/dL 0.59 Sodium 136 - 144 mmol/L 139 Potassium 3.7 - 5.1 mmol/L 3.8 Chloride 97 - 105 mmol/L 95 (L) CO2 22 - 30 mmol/L 22 Anion Gap 9 - 18 mmol/L 22 (H) ALT 7 - 38 U/L 9 eGFR- ANDgt;60 eGFR-All Other Races . ANDgt;60 Component Latest Ref Rng ANDamp; Units 07/17/2016 WBC 3.70 - 11.00 k/uL 22.66 (H) RBC 3.90 - 5.20 m/uL 4.68 Hemoglobin 11.5 - 15.5 g/dL 13.0 Platelet Count 150 - 400 k/uL 378 Protein, Total 6.3 - 8.0 g/dL 7.5 Albumin 3.9 - 4.9 g/dL 3.7 (L) Calcium 8.5 - 10.2 mg/dL 9.4 Bilirubin, Total 0.2 - 1.3 mg/dL 0.3 Alkaline Phosphatase 32 - 117 U/L 68 AST 13 - 35 U/L 10 (L) Glucose 74 - 99 mg/dL 279 (H) BUN 7 - 21 mg/dL 12 Creatinine 0.58 - 0.96 mg/dL 0.61 Sodium 136 - 144 mmol/L 137 Potassium 3.7 - 5.1 mmol/L 4.5 Chloride 97 - 105 mmol/L 94 (L) CO2 22 - 30 mmol/L 23 Anion Gap 9 - 18 mmol/L 20 (H) ALT 7 - 38 U/L 13 eGFR- ANDgt;60 eGFR-All Other Races . ANDgt;60 *Dec outside high WBC, nl Cr, and UTI with pseudomonas *Nov outside high wbc 15 otherwise unremarkable remainder of CBC, Cr, LFTs, STEPHANIE and RF *Mar high WBC 23.9 and high CRP 9.9 (ULN 3) with unremarkable hgb 12.1, platelets, Cr, ALT and AST *June nl Cr *Apr high wbc 13.5 with nl hgb/platelets *Mar nl LFTs *September high ESR 18 and high CRP 2.1 with unremarkable RF, CCP, hep B/C, and quant gold *June outside elevated WBC 12.9, hgb 15.1, p 261 STUDIES: *August x-ray knees- Moderate OA medial compartments *August x-ray feet- mild OA IMPRESSION and PLAN: 1. Likely seronegative RA: With prior diagnosis of RA, symptoms 70% improved on methotrexate and humira in past. Also with 90% improvement on past steroid courses. Was on MTX SC in September for 1-2 months, and then again from August-Dec but stopped due to GI side effects (although joint pain improved). Arava helped but caused significant n/v. Enbrel helped but not enough. -continue orencia. She was advised to hold Orencia in the future for infections. She may resume it once infection has resolved and antibiotics (if needed) are complete. - continue prednisone 10 mg daily per pcp - will give toradol 30mg IM x1 today -will check labs today 2. 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 She is requested tramadol and steroids from multiple providers on a frequent basis. However, she continues to report diffuse pain despite taking neurotin, flexeril, cymbalta, steroids, and toradol. Consult placed. 3. Knee OA: - Consider future steroid injection as needed 4. Rash: Over heels - continue f/u with dermatology 5. High WBC: Evaluated by hematology - Continue monitoring 6. General health maintenance: - Received flu shot in 11/2016 - Received pneumonia vaccination in - Advised to continue follow-up with PCP for routine health maintenance and malignancy screening Follow-up in [address] Lorenz Patient was instructed to call if any new or worsening symptoms. Chase Ramírez CNP Referring Provider: MIGNON WALSH [[id number]] Allergies As of Date: 06/17/2017 Noted Allergy Reaction MACROBID (NITROFURANTOIN MONOHYD/*11/07/2015 9 - Itching Comments: Hives and rash MRI DYE (CONTRAST DYE) 08/02/2009 11 - Vomiting Comments: constant vomiting, swell up, NEEDS premedication but still gets sick, not as bad FENTANYL 05/09/2013 5 - Intolerance Comments: Feels like throat is closing METFORMIN 08/20/2015 8 - GI Upset Comments: Has tried immediate release and XR formulation and unable to tolerate either SULFA (SULFONAMIDE ANTIBIOTICS) 05/09/2013 9 - Itching ct scan dye [Other] 08/02/2009 11 - Vomiting Comments: Vomiting, swelling of face: Needs premedication and gets sick, but not as bad Date Reviewed: 06/17/2017 Reviewed by: Chase ([facility]) TANIKA Ramírez.MAP DRAFTER - Fully Assessed Reason for Visit: Recheck [92] Primary Visit Diagnosis:Seronegative rheumatoid arthritis (HCC) [M06.00] Other Visit Diagnosis:Encounter for long-term (current) use of medications [Z79.899] Order(s):CBC + DIFF [SQCBCDIF] Order #: [id number] FUTURE AST/SGOT BLD [SQAST] Order #: [id number] FUTURE ALT/SGPT [SQALT] Order #: [id number] FUTURE ALBUMIN BLD [SQALB] Order #: [id number] FUTURE CREATININE BLD [SQCRET] Order #: [id number] FUTURE CONSULT TO PAIN MGT ANESTHESIA [[id number]] Order #: [id number]: 1 SED RATE WESTERGREN [SQWSR] Order #: [id number] FUTURE C-REACTIVE PROTEIN (CRP) [SQCRP] Order #: [id number] FUTURE TORADOL 30 MG IM X 1 DOSE [[id number]] Order #: [id number] cyclobenzaprine (FLEXERIL) 5 mg tabletTAKE 2 TABLETS BY MOUTH EVERY MORNING AND 1 TABLET IN THE AFTERNOON AND 2 TABLETS AT NIGHTDisp: 150 tabletRfl: 0 Prescriptions as of 06/17/2017 Sig: CYCLOBENZAPRINE 5 MG TABLET TAKE 2 TABLETS BY MOUTH EVERY* COMPOUNDED PRESCRIPTION Adult diaper: Depends: Size:* IBUPROFEN 800 MG TABLET Take 1 tablet by mouth every * ABATACEPT 125 MG/ML SUBCUTANE* Inject 125 mg subcutaneously * ALBUTEROL SULFATE HFA 90 MCG/* Inhale 2 Puffs as instructed * EMPAGLIFLOZIN 10 MG TABLET Take 1 tablet by mouth once d* GABAPENTIN 800 MG TABLET TAKE 2 TABLETS BY MOUTH EVERY* BLOOD-GLUCOSE METER KIT Glucose Meter of Choice - Kit* PANTOPRAZOLE 40 MG TABLET,DEL* TAKE 1 TABLET BY MOUTH DAILY ATORVASTATIN 20 MG TABLET TAKE 1 TABLET BY MOUTH AT BED* BUDESONIDE 180 MCG/ACTUATION * Inhale 2 Puffs as instructed * GLIMEPIRIDE 4 MG TABLET TAKE 1 TABLET BY MOUTH DAILY CLONAZEPAM 0.5 MG TABLET Take 1 tablet by mouth twice * LISINOPRIL 10 MG TABLET Take 1 tablet by mouth once d* COMPOUNDED PRESCRIPTION [employer] orthotics (L30.9* COMPOUNDED PRESCRIPTION Physical therapy ordered for * LEVOTHYROXINE 150 MCG TABLET Take 1 tablet by mouth daily * CHOLECALCIFEROL (VITAMIN D3) * Take 1 tablet by mouth once d* ZOFRAN ORAL Take by mouth. BLOOD SUGAR DIAGNOSTIC STRIPS Test blood sugar(s) 1- 2 time* BUSPAR ORAL Take 30 mg by mouth twice tyrell* ALBUTEROL SULFATE 2.5 MG/3 ML* Use 3 mL via nebulizer every * LANCETS Test blood sugar(s) one times* LANCETS Test blood sugar(s) 1- 2 times* COMPOUNDED PRESCRIPTION Please provide patient with n* DULOXETINE 60 MG CAPSULE,SERG* Take 120 mg by mouth once tyrell* PREDNISONE 10 MG TABLET Take 1 tablet by mouth once d* DOXYCYCLINE MONOHYDRATE 100 M* Take 1 capsule by mouth twice* SITAGLIPTIN 100 MG TABLET Take 1 tablet by mouth once d* GUAIFENESIN 100 MG/5 ML ORAL * Take 10 mL by mouth three mariza* BENZONATATE 100 MG CAPSULE Take 1 capsule by mouth three* KETOCONAZOLE 2 % TOPICAL CREAM Apply 1 application to affect* CPAP Initiate CPAP @ 14 cm of wate* Medication notes this encounter PREDNISONE 10 MG TABLET >> Boby Wynn Ma 06/17/2017 12:40 PM >> BOBY WYNN [facility] Jun 17, 2017 12:40 PM Patient discontinued. DOXYCYCLINE MONOHYDRATE 100 MG CAPSULE >> Boby Wynn Ma 06/17/2017 12:39 PM >> BOBY WYNN [facility] Jun 17, 2017 12:39 PM Patient discontinued. SITAGLIPTIN 100 MG TABLET >> Boby Wynn Ma 06/17/2017 12:40 PM >> BOBY WYNN [facility] Jun 17, 2017 12:40 PM Patient discontinued. GUAIFENESIN 100 MG/5 ML ORAL LIQUID >> Boby Wynn Ma 06/17/2017 12:39 PM >> BOBY WYNN MA [place] Jun 17, 2017 12:39 PM Patient discontinued. BENZONATATE 100 MG CAPSULE >> Boby Wynn Ma 06/17/2017 12:38 PM >> BOBY WYNN MA [place] Jun 17, 2017 12:38 PM Patient discontinued. KETOCONAZOLE 2 % TOPICAL CREAM >> Boby Wynn Ma 06/17/2017 12:39 PM >> BOBY WYNN MA [place] Jun 17, 2017 12:39 PM Patient discontinued. CPAP >> Boby Wynn Ma 06/17/2017 12:39 PM >> BOBY WYNN MA Jun 17, 2017 12:39 PM Patient discontinued. Problem List As Of Date 06/17/2017 Noted Resolved Shortness of breath [R06.02] 07/01/2015 Asthma with exacerbation [J45.901] 07/01/2015 Viral pneumonia, unspecified [J12.9] 07/01/2015 More... MITRAL VALVE DISORDER [I05.9] Tobacco use disorder [F17.200] 07/01/2015 Essential hypertension [I10] More... MIXED HYPERLIPIDEMIA [E78.2] More... COUGH [R05] INVALID FOR* INCONTINENCE W/O SENSORY AWARENESS [N39.42] INVALID FOR*07/01/2015 URGE AND STRESS MIXED INCONTINENCE [N39.46] INVALID FOR* Morbid obesity with BMI of 45.0-49.9, adult [E6*INVALID FOR*07/01/2015 Tobacco abuse [Z72.0] INVALID FOR* Hyperlipidemia [E78.5] INVALID FOR*04/10/2016 Fibromyalgia [M79.7] INVALID FOR* Hypothyroidism [E03.9] INVALID FOR*07/01/2015 Asthma with COPD (HCC) [J44.9] INVALID FOR*07/01/2015 RLL pneumonia [J18.1] INVALID FOR*04/10/2016 GERD (gastroesophageal reflux disease) [K21.9] INVALID FOR* H. 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*INVALID FOR* NIMESH (obstructive sleep apnea) [G47.33] INVALID FOR* Asthma [J45.909] INVALID FOR* Seronegative rheumatoid arthritis (HCC) [M06.00]INVALID FOR* Controlled substance agreement signed [Z79.899] INVALID FOR* Bladder spasms [N32.89] INVALID FOR* Uncontrolled type 2 diabetes mellitus without c*INVALID FOR* Recurrent UTI [N39.0] INVALID FOR* Long-term use of immunosuppressant medication [*INVALID FOR* Prescriptions ordered this encounter Disp Refills Start End CYCLOBENZAPRINE 5 MG TABLET 150 * 0 06/17/2017 Sig: TAKE 2 TABLETS BY MOUTH EVERY MORNING AND 1 TABLET IN THE AFTERNOON AND 2 TABLETS AT NIGHT Medications Discontinued During This Encounter cyclobenzaprine (FLEXERIL) 5 mg tabl* 150 * 0 05/20/2017 06/17/2017 Sig: TAKE 2 TABLETS BY MOUTH EVERY MORNING AND 1 TABLET IN THE AFTERNOON AND 2 TABLETS AT NIGHT Disc: Reason for discontinue is not on file. Disposition: Return in about 3 months (around 09/17/2017). Follow-up and Disposition History Recorded Encounter Status:Closed by CHASE RAMÍREZ CNP on 06/17/17 PROGRESS Observed: 06/14/2017 Status: COMPLETED Source: ON[facility] 11:53 AM [facility] REPOSITORY O ID: [id number] Author: Chase (Yoan) TANIKA Ramírez.YOAN Service: (none) Author Type: Nurse Practitioner Type: Progress Notes Filed: 06/17/2017 3:06 PM Note Text: Follow-up of joint pain HPI: - Has had prior diagnosis of RA. Initially on plaquenil, stopped due to GI upset. On simponi but then switched to humira. Had been on methotrexate x3 yrs and humira x3 yrs at same time, stopped 6 months prior to initial September visit due to insurance issues. Symptoms were 70% improved on immunosuppression as compared to initial visit. - For 6 years prior to September visit, has had joint pain in MCPs, PIPs, DIPs, and knees. Joint pain improved by 80-90% on steroid courses which were prescribed for lung issues. - In September, established care in [facility] rheumatology. Given improvement with prior immunosuppression, MTX 15mg SC weekly started for possible inflammatory arthritis although not clear. Given referral to dermatology for psoriasis but didn't get evaluated - Around Nov, MTX deleted off medication list so suspects this was stopped around this time. Doesn't recall if any improvement in joint pain on MTX - In August, reported pain in MCPs, PIPs, DIPs, knees, and ankles. Advised to restart MTX SC - In Dec, reported that joint pain a little improved but with persistent GI side effects on MTX SC so switched to arava - Around Feb, stopped arava due to nausea/vomiting. It did help joint pain - In Dec, reported joint pain in hands and knees. Started on enbrel PAST MEDICAL HISTORY Unspecified Asthma(493.90) Viral Pneumonia, Unspecified (Pneumonia) Mitral Valve Disorders (MILD PROLAPSE NO REGUGITATION) Tobacco Use Disorder Unspecified Essential Hypertension (Essential hypertension) Dyslipidemia (elevated TG, low HDL) Leukocytosis Depression (Dr. Jameson [facility]) Rll Pneumonia - 04/19/13 Hypothyroidism Chronic Back Pain Neuropathy (b/l feet) Impaired Fasting Glucose - 06/2013 Chronic Bronchitis (Hcc) - 06/2013 (retirement plan counselor Dr. Ponce) H. Pylori Infection - 06/2013 Leukocytosis Osteoarthritis of Both Knees - 08/2013 PAST SURGICAL HISTORY DOPPLER ECHO HEART,COMPLETE 09/02/05 Comment EF= 65% LEFT HEART CATH,PERCUTANEOUS 12/02/05 Comment NORMAL GASTRIC BYPASS HX 1986 LUMBAR SPINE FUSION COMBINED 1992 Comment X6 CHOLECYSTECTOMY 1995 Comment lap COLONOSCOP W/ OR W/O BRSH SPEC 02/07/2014 Comment Colonoscopy EGD W/O OR W/BRUSH/WASH 02/07/2014 Comment EGD Review of patient's allergies indicates: Mri Dye (Contrast D* Vomiting Comment:constant vomiting, swell up, NEEDS premedication but still gets sick, not as bad Fentanyl Intolerance Sulfa (Sulfonamide * Itching Ct Scan Dye [Other] Vomiting Comment:Vomiting, swelling of face: Needs premedication and gets sick, but not as bad INTERVAL HISTORY: She is here for follow up. She reports increased generalized pain and fatigue. Patient states increased dose of flexeril has not helped her pain. She is requesting a Toradol injection and a steroid taper. She has received toradol injections and steroids from multiple providers recently. She is currently taking prednisone 10 mg daily. She states the steroids only help her pain if the doses are higher. She reports her glucose runs low and typically under 100. However, her most recent A1C was 9.5. Sites of pain: hands, knees, feet, lower back, generalized pain rated 8/10 Joint swelling: hands EMS: yes, lasting a few hours She reports UTI and URI in 05/2017, s/p antibiotics. Symptoms have resolved. Tolerating meds. REVIEW OF SYSTEMS: June 17, 2017 CONSTITUTIONAL: See above: Fever: No Fatigue: Yes Pain: Yes EYES: Pain: Yes-error- patient denies eye pain Redness: No Loss of vision: No Dryness: Yes EAR, NOSE, MOUTH, THROAT: Nose bleeds: No Hearing loss: No Sores in mouth: No Swallowing problems: No Dry mouth: Yes CARDIOVASCULAR: Chest pain: No Swelling in the feet or legs: No RESPIRATORY: Shortness of breath: No Pain with breathing: Yes- not currently Chronic cough: Yes- dry cough Coughing up blood: No , GASTROINTESTINAL: Heartburn: No Nausea: No Diarrhea: No Blood in the stool or black stool: No Abdominal pain: No GENITOURINARY: Blood in urine: No Pain or burning on urination: Yes- no current dysuria MUSCULOSKELETAL: See above: Joint pain: Yes Joint swelling: Yes Morning stiffness in joints: Yes Muscle weakness: No Back pain: Yes SKIN: Rashes: No Sun sensitive rashes: No Color changes of hands or feet in the cold: No Hair loss: No Nail changes: No NEUROLOGICAL: Headaches: No Dizziness: No Numbness or tingling: Yes- b/l extremities and feet Memory loss: No Seizures: No HEMATOLOGIC/LYMPHATIC: Swollen glands: No Anemia: No ALLERGIES/IMMUNOLOGIC: Allergies (other than medications): No Increased susceptibility to infection: No KNOWN MEDICAL CONDITIONS: Diabetes: No Thyroid disease: No High blood pressure: Yes Current Outpatient Prescriptions: cyclobenzaprine (FLEXERIL) 5 mg tablet TAKE 2 TABLETS BY MOUTH EVERY MORNING AND 1 TABLET IN THE AFTERNOON AND 2 TABLETS AT NIGHT COMPOUNDED PRESCRIPTION Adult diaper: Depends: Size: [id number]: N39.46 Mixed incontinence urge and stress (female)ICD-10: N39.0 Recurrent UTI (urinary tract infection). ibuprofen (MOTRIN) 800 mg tablet Take 1 tablet by mouth every 8 hours as needed for Pain. Take with food. abatacept (ORENCIA) 125 mg/mL syrg Inject 125 mg subcutaneously once each week. albuterol HFA (PROVENTIL HFA, VENTOLIN HFA) 90 mcg/actuation inhaler Inhale 2 Puffs as instructed every 4 hours as needed. empagliflozin (JARDIANCE) 10 mg tablet Take 1 tablet by mouth once daily. Take 1 tablet once daily in the morning gabapentin (NEURONTIN) 800 mg tablet TAKE 2 TABLETS BY MOUTH EVERY MORNING AND TAKE 1 AND 1/2 TABLETS IN THE AFTERNOON AND TAKE 1 TABLET AT BEDTIME Blood-Glucose Meter monitoring kit Glucose Meter of Choice - Kit - Dx: Type 2 DM - Uncontrolled E11.[address] (PROTONIX) 40 mg tablet TAKE 1 TABLET BY MOUTH DAILY atorvastatin (LIPITOR) 20 mg tablet TAKE 1 TABLET BY MOUTH AT BEDTIME budesonide (PULMICORT FLEXHALER) 180 mcg/actuation aepb Inhale 2 Puffs as instructed twice daily. glimepiride (AMARYL) 4 mg tablet TAKE 1 TABLET BY MOUTH DAILY clonazePAM (KLONOPIN) 0.5 mg tablet Take 1 tablet by mouth twice daily. lisinopril (ZESTRIL, PRINIVIL) 10 mg tablet Take 1 tablet by mouth once daily. COMPOUNDED PRESCRIPTION [employer] orthotics(L30.9) Dermatitis (primary encounter diagnosis)(72.2) Plantar fasciitis, bilatera(E11.49) Other diabetic neurological complication associated with type 2 diabetes mellitus (HCC) COMPOUNDED PRESCRIPTION Physical therapy ordered for her for a home modification evaluation to evaluate need for lift chair or other DME that will assist patient in home and promote safety. levothyroxine (SYNTHROID) 150 mcg tablet Take 1 tablet by mouth daily before breakfast. Cholecalciferol, Vitamin D3, (VITAMIN D-3) 2,000 unit cap Take 1 tablet by mouth once daily. ONDANSETRON HCL (ZOFRAN ORAL) Take by mouth. blood sugar diagnostic (BLOOD GLUCOSE TEST) test strip Test blood sugar(s) 1-2 times daily and PRN. Dx: Type 2 DM - Controlled E11.9 Insulin: No BUSPIRONE HCL (BUSPAR ORAL) Take 30 mg by mouth twice daily. albuterol (PROVENTIL) 2.5 mg /3 mL (0.083 %) nebulizer solution Use 3 mL via nebulizer every 4 hours as needed for Wheezing/Shortness of Breath. Use over 5-15minutes. Lancets lancets Test blood sugar(s) one times daily. Dx: Type 2 DM - Controlled E11.9 Insulin: No Lancets lancets Test blood sugar(s) 1-2 times daily. Dx: Type 2 DM - Controlled E11.9 Insulin: No COMPOUNDED PRESCRIPTION Please provide patient with new nebulizer machine and supplies.Diagnosis: Wheezing, dyspnea. DULoxetine (CYMBALTA) 60 mg capsule Take 120 mg by mouth once daily. predniSONE (DELTASONE) 10 mg tablet Take 1 tablet by mouth once daily. doxycycline monohydrate (MONODOX) 100 mg capsule Take 1 capsule by mouth twice daily. sitaGLIPtin (JANUVIA) 100 mg tablet Take 1 tablet by mouth once daily. guaiFENesin (ROBITUSSIN) 100 mg/5 mL syrup Take 10 mL by mouth three times daily as needed. benzonatate (TESSALON PERLE) 100 mg capsule Take 1 capsule by mouth three times daily as needed for Cough. ketoconazole (NIZORAL) 2 % cream Apply 1 application to affected area once daily. CPAP Initiate CPAP @ 14 cm of water with humidification. Mask (per patient preference) optional chin strap (if indicated) , filters, tubing, heated humidifier and lifetime supplies. Set EPR to 3. DX: NIMESH No current facility-administered medications for this visit. FAMILY HISTORY Cancer Father Comment: lung 70 Hypertension Mother Stroke Maternal Grandfather Comment: 81 Breast Cancer Maternal Aunt SOCIAL HISTORY: Lives in [place]. Tobacco Use: 1 pack/day, for 28 years. Types: Cigarettes (For the last year 1/2 pack/daily.) Alcohol Use: No Tattoos: Yes PHYSICAL EXAM: BP 135/67 Pulse 62 Temp 36.3 ?C (97.4 ?F) (Oral) Ht 175.3 cm (5' 9) Wt (!) 139.7 kg (308 lb) LMP 01/27/2006 BMI 45.48 kg/m2 CONSTITUTIONAL: Well-appearing, in NAD. SKIN: LE rash. No alopecia. No sclerodactyly, calcinosis, telangiectasias, digitial ulcers, or skin thickening. EYES: No scleral icterus or conjunctivitis, PERRLA. ENT and Mouth: External ears normal. Nares normal. Mucous membranes normal. Oropharynx normal. No oral ulcers. NECK: No lymphadenopathy RESPIRATORY: Diffuse expiratory wheezing bilaterally CARDIOVASCULAR: Regular rate and rhythm, no murmurs or rubs GASTROENTEROLOGY: Normal bowel sounds. Abdomen is soft and non-tender. EXTREMITIES/LYMPH: No edema bilaterally NEURO: Awake, alert and oriented, Normal gait MUSCULOSKELETAL: JOINT APPEARANCE: No erythema or warmth of any upper or lower extremity joint. RANGE OF MOTION: Able to fully close fists and curl fingers bilaterally. SWOLLEN JOINTS/SYNOVITIS: No clear synovitis of any joint. TENDER JOINTS: Diffuse tenderness to palpation of the bilateral shoulders, elbows, wrists, MCPs, PIPs, DIPs, knees, ankles and feet + tenderness to all b/l upper and lower extremity muscles. Labs reviewed and discussed with the patient: Component Latest Ref Rng AND Units 04/27/2017 Protein, Total 6.3 - 8.0 g/dL 7.1 Albumin 3.9 - 4.9 g/dL 3.8 (L) Calcium 8.5 - 10.2 mg/dL 8.8 Bilirubin, Total 0.2 - 1.3 mg/dL 0.2 Alkaline Phosphatase 32 - 117 U/L 68 AST 13 - 35 U/L 11 (L) Glucose 74 - 99 mg/dL 295 (H) BUN 7 - 21 mg/dL 7 Creatinine 0.58 - 0.96 mg/dL 0.66 Sodium 136 - 144 mmol/L 139 Potassium 3.7 - 5.1 mmol/L 3.7 Chloride 97 - 105 mmol/L 99 CO2 22 - 30 mmol/L 21 (L) Anion Gap 9 - 18 mmol/L 19 (H) ALT 7 - 38 U/L 11 eGFR- >60 eGFR-All Other Races . >60 Component Latest Ref Rng AND Units 12/31/2016 WBC 3.70 - 11.00 k/uL 21.06 (H) RBC 3.90 - 5.20 m/uL 4.72 Hemoglobin 11.5 - 15.5 g/dL 12.3 Hematocrit 36.0 - 46.0 % 40.3 MCV 80.0 - 100.0 fL 85.4 MCH 26.0 - 34.0 pG 26.1 MCHC 30.5 - 36.0 g/dL 30.5 RDW-CV 11.5 - 15.0 % 18.6 (H) Platelet Count 150 - 400 k/uL 408 (H) MPV 9.0 - 12.7 fL 10.3 Neut% % 91.7 Abs Neut (ANC) 1.45 - 7.50 k/uL 19.30 (H) Lymph% % 6.7 Abs Lymph 1.00 - 4.00 k/uL 1.42 [place]% % 1.2 Abs [place] <0.87 k/uL 0.25 Eosin% % 0.1 Abs Eosin <0.46 k/uL 0.03 Baso% % 0.3 Abs Baso <0.11 k/uL 0.06 Nucleated Reds 0 /100 WBC 0.0 Absolute nRBC 0.00 k/uL 0.00 Diff Type Auto Diff Creatinine 0.58 - 0.96 mg/dL 0.60 eGFR- >60 eGFR-All Other Races . >60 AST 13 - 35 U/L 9 (L) ALT 7 - 38 U/L 9 Albumin 3.9 - 4.9 g/dL 3.8 (L) Component Latest Ref Rng AND Units 2016 Protein, Total 6.3 - 8.0 g/dL 6.8 Albumin 3.9 - 4.9 g/dL 3.8 (L) Calcium 8.5 - 10.2 mg/dL 9.3 Bilirubin, Total 0.2 - 1.3 mg/dL 0.2 Alkaline Phosphatase 32 - 117 U/L 71 AST 13 - 35 U/L 11 (L) Glucose 74 - 99 mg/dL 189 (H) BUN 7 - 21 mg/dL 8 Creatinine 0.58 - 0.96 mg/dL 0.59 Sodium 136 - 144 mmol/L 139 Potassium 3.7 - 5.1 mmol/L 3.8 Chloride 97 - 105 mmol/L 95 (L) CO2 22 - 30 mmol/L 22 Anion Gap 9 - 18 mmol/L 22 (H) ALT 7 - 38 U/L 9 eGFR- >60 eGFR-All Other Races . >60 Component Latest Ref Rng AND Units 07/17/2016 WBC 3.70 - 11.00 k/uL 22.66 (H) RBC 3.90 - 5.20 m/uL 4.68 Hemoglobin 11.5 - 15.5 g/dL 13.0 Platelet Count 150 - 400 k/uL 378 Protein, Total 6.3 - 8.0 g/dL 7.5 Albumin 3.9 - 4.9 g/dL 3.7 (L) Calcium 8.5 - 10.2 mg/dL 9.4 Bilirubin, Total 0.2 - 1.3 mg/dL 0.3 Alkaline Phosphatase 32 - 117 U/L 68 AST 13 - 35 U/L 10 (L) Glucose 74 - 99 mg/dL 279 (H) BUN 7 - 21 mg/dL 12 Creatinine 0.58 - 0.96 mg/dL 0.61 Sodium 136 - 144 mmol/L 137 Potassium 3.7 - 5.1 mmol/L 4.5 Chloride 97 - 105 mmol/L 94 (L) CO2 22 - 30 mmol/L 23 Anion Gap 9 - 18 mmol/L 20 (H) ALT 7 - 38 U/L 13 eGFR- >60 eGFR-All Other Races . >60 *Dec outside high WBC, nl Cr, and UTI with pseudomonas *Nov outside high wbc 15 otherwise unremarkable remainder of CBC, Cr, LFTs, STEPHANIE and RF *Mar high WBC 23.9 and high CRP 9.9 (ULN 3) with unremarkable hgb 12.1, platelets, Cr, ALT and AST *June nl Cr *Apr high wbc 13.5 with nl hgb/platelets *Mar nl LFTs *September high ESR 18 and high CRP 2.1 with unremarkable RF, CCP, hep B/C, and quant gold *June outside elevated WBC 12.9, hgb 15.1, p 261 STUDIES: *August x-ray knees- Moderate OA medial compartments *August x-ray feet- mild OA IMPRESSION and PLAN: 1. Likely seronegative RA: With prior diagnosis of RA, symptoms 70% improved on methotrexate and humira in past. Also with 90% improvement on past steroid courses. Was on MTX SC in September for 1-2 months, and then again from August-Dec but stopped due to GI side effects (although joint pain improved). Arava helped but caused significant n/v. Enbrel helped but not enough. -continue orencia. She was advised to hold Orencia in the future for infections. She may resume it once infection has resolved and antibiotics (if needed) are complete. - continue prednisone 10 mg daily per pcp - will give toradol 30mg IM x1 today -will check labs today 2. 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 She is requested tramadol and steroids from multiple providers on a frequent basis. However, she continues to report diffuse pain despite taking neurotin, flexeril, cymbalta, steroids, and toradol. Consult placed. 3. Knee OA: - Consider future steroid injection as needed 4. Rash: Over heels - continue f/u with dermatology 5. High WBC: Evaluated by hematology - Continue monitoring 6. General health maintenance: - Received flu shot in 11/2016 - Received pneumonia vaccination in - Advised to continue follow-up with PCP for routine health maintenance and malignancy screening Follow-up in [address] Lorenz Patient was instructed to call if any new or worsening symptoms. Chase Ramírez CNP CNOV Observed: 06/08/2017 Status: COMPLETED Source: ONYX 11:40 AM [facility] REPOSITORY Office Visit (FAMPWS) KATHERIN SUERO ([id number]) 1965 F [facility] Date Time Provider Department 06/08/17 11:40 AM MIGNON WALSH FAMPWS During your visit today, we recorded the following information about you: Pulse Respiration Blood pressure Weight 74/minute 18/minute 118/70 140.6 kg Mignon Walsh MD 06/08/2017 3:10 PM Signed Chief Complaint Patient presents with: ED Follow-up: [facility] HPI Katherin Suero is a 51 year old female who presents here today for ER follow up. Pt was at [facility] ER on 06/04/17 for non productive cough with SOB and dysuria. Complained of nausea but denied any vomiting, diarrhea, abdominal pain or chest pain. Pt had urine test, blood work, and chest xray done. No pneumonia found. Pt did have vaginal yeast infection, c/o ANDquot;cottage cheese like dischargeANDquot;. Pt was treated with 40 mg Prednisone given 8 tablets, Zpak and Diflucan. Pt states that she still has pain when she urinated. Has SOB and feels like she is ANDquot;drowingANDquot; if she is lying flat in bed so she has been sleeping in a recliner. Has left side pain with breathing. Pt states that the antibiotic and prednisone did not help. Fibromyalgia: Pt states that the prednisone 5 mg twice a day has helped with the all over joint pain. She would like to possibly increase the dosage for a little while if able. She has been losing weight, has not been trying. Pt stated in past she was given Kenalog shots to help with her joint pain and that did help some. Pt has been on and off Prednisone for 25-30 years. She knows it is not good for her but it works. Pt does see a Steam Table Worker Dr. Lorenz, who gives her Toradol injections monthly. The pain does cause pt to be irritable. Has had some left foot swelling and burning discomfort with a dry rash to top of foot. Denies any swelling into the ankle or leg. States that the swelling does worsen as the day goes on, admits that it is minimal at this time. Does try to soak foot in epsom salts at night and elevates when able. Has purple color to the toes. Pt thinks she needs to see a REHABILITATION NURSE for a pap, has not been to REHABILITATION NURSE in 20 plus years. Agreeable to have REHABILITATION NURSE consult and Mammogram done. Past medical history, appointments, medications, allergies reviewed. Previous Medical History PAST MEDICAL HISTORY Diagnosis Date - Asthma with exacerbation - Chronic back pain - Chronic bronchitis (HCC) 06/[address] Ponce - Chronic gastritis egd 02/07/14 - Depression Dr. Jameson [facility] - Dyslipidemia elevated TG, low HDL - H. pylori infection 06/2013 - Hypothyroidism - Impaired fasting glucose 06/2013 - Leukocytosis - Mitral valve disorders(424.0) MILD PROLAPSE NO REGUGITATION - Neuropathy ([facility]) b/l feet - NIMESH (obstructive sleep apnea) - Osteoarthritis of both knees 08/2013 - Psoriatic arthritis ([facility]) Dr. Rebecca Burgess - Rheumatoid arthritis ([facility]) - RLL pneumonia ([facility]) 04/19/13 - Tobacco use disorder - Unspecified asthma(493.90) - Unspecified essential hypertension Essential hypertension - Viral pneumonia, unspecified Pneumonia Previous Surgical History PAST SURGICAL HISTORY Procedure Laterality Date - CHOLECYSTECTOMY 1995 lap - COLONOSCOP W/ OR W/O BRSH SPEC 02/07/2014 Colonoscopy - DOPPLER ECHO HEART,COMPLETE 09/02/05 EF= 65% - EGD W/O OR W/BRUSH/WASH 02/07/2014 EGD - GASTRIC BYPASS HX 1985 - LEFT HEART CATH,PERCUTANEOUS 12/02/05 NORMAL - LUMBAR SPINE FUSION COMBINED 1992 X6 Family History FAMILY HISTORY Problem Relation Age of Onset - Hypertension Mother - Cancer Father lung 70 - Stroke Maternal Grandfather 81 - Breast Cancer Maternal Aunt Patient Allergies ALLERGIES Allergen Reactions - Macrobid [Nitrofura* Itching Hives and rash - Mri Dye [Contrast D* Vomiting constant vomiting, swell up, NEEDS premedication but still gets sick, not as bad - Fentanyl Intolerance Feels like throat is closing - Metformin GI Upset Has tried immediate release and XR formulation and unable to tolerate either - Sulfa (Sulfonamide * Itching - Ct Scan Dye [Other] Vomiting Vomiting, swelling of face: Needs premedication and gets sick, but not as bad Current Medications Current Outpatient Prescriptions on File Prior to Visit: COMPOUNDED PRESCRIPTION Adult diaper: Depends: Size: [id number]: N39.46 cyclobenzaprine (FLEXERIL) 5 mg tablet TAKE 2 TABLETS BY MOUTH EVERY MORNING AND 1 TABLET IN THE AFTERNOON AND 2 TABLETS AT NIGHT abatacept (ORENCIA) 125 mg/mL syrg Inject 125 mg subcutaneously once each week. albuterol HFA (PROVENTIL HFA, VENTOLIN HFA) 90 mcg/actuation inhaler Inhale 2 Puffs as instructed every 4 hours as needed. empagliflozin (JARDIANCE) 10 mg tablet Take 1 tablet by mouth once daily. Take 1 tablet once daily in the morning gabapentin (NEURONTIN) 800 mg tablet TAKE 2 TABLETS BY MOUTH EVERY MORNING AND TAKE 1 ANDamp; 1/2 TABLETS IN THE AFTERNOON AND TAKE 1 TABLET AT BEDTIME sitaGLIPtin (JANUVIA) 100 mg tablet Take 1 tablet by mouth once daily. guaiFENesin (ROBITUSSIN) 100 mg/5 mL syrup Take 10 mL by mouth three times daily as needed. ibuprofen (MOTRIN) 800 mg tablet Take 1 tablet by mouth every 8 hours as needed for Pain. Take with food. Blood-Glucose Meter monitoring kit Glucose Meter of Choice - Kit - Dx: Type 2 DM - Uncontrolled E11.65 benzonatate (TESSALON PERLE) 100 mg capsule Take 1 capsule by mouth three times daily as needed for Cough. pantoprazole DR (PROTONIX) 40 mg tablet TAKE 1 TABLET BY MOUTH DAILY atorvastatin (LIPITOR) 20 mg tablet TAKE 1 TABLET BY MOUTH AT BEDTIME budesonide (PULMICORT FLEXHALER) 180 mcg/actuation aepb Inhale 2 Puffs as instructed twice daily. glimepiride (AMARYL) 4 mg tablet TAKE 1 TABLET BY MOUTH DAILY clonazePAM (KLONOPIN) 0.5 mg tablet Take 1 tablet by mouth twice daily. lisinopril (ZESTRIL, PRINIVIL) 10 mg tablet Take 1 tablet by mouth once daily. ketoconazole (NIZORAL) 2 % cream Apply 1 application to affected area once daily. COMPOUNDED PRESCRIPTION Powerstep orthotics(L30.9) Dermatitis (primary encounter diagnosis)(72.2) Plantar fasciitis, bilatera(E11.49) Other diabetic neurological complication associated with type 2 diabetes mellitus (HCC) COMPOUNDED PRESCRIPTION Physical therapy ordered for her for a ANDquot;home modification evaluationANDquot; to evaluate need for lift chair or other DME that will assist patient in home and promote safety. levothyroxine (SYNTHROID) 150 mcg tablet Take 1 tablet by mouth daily before breakfast. Cholecalciferol, Vitamin D3, (VITAMIN D-3) 2,000 unit cap Take 1 tablet by mouth once daily. ONDANSETRON HCL (ZOFRAN ORAL) Take by mouth. blood sugar diagnostic (BLOOD GLUCOSE TEST) test strip Test blood sugar(s) 1-2 times daily and PRN. Dx: Type 2 DM - Controlled E11.9 Insulin: No BUSPIRONE HCL (BUSPAR ORAL) Take 30 mg by mouth twice daily. albuterol (PROVENTIL) 2.5 mg /3 mL (0.083 %) nebulizer solution Use 3 mL via nebulizer every 4 hours as needed for Wheezing/Shortness of Breath. Use over 5-15minutes. CPAP Initiate CPAP @ 14 cm of water with humidification. Mask (per patient preference) optional chin strap (if indicated) , filters, tubing, heated humidifier and lifetime supplies. Set EPR to 3. DX: NIMESH Lancets lancets Test blood sugar(s) one times daily. Dx: Type 2 DM - Controlled E11.9 Insulin: No Lancets lancets Test blood sugar(s) 1-2 times daily. Dx: Type 2 DM - Controlled E11.9 Insulin: No COMPOUNDED PRESCRIPTION Please provide patient with new nebulizer machine and supplies.Diagnosis: Wheezing, dyspnea. DULoxetine (CYMBALTA) 60 mg capsule Take 120 mg by mouth once daily. No current facility-administered medications on file prior to visit. Social History Social History Marital status: Single Spouse name: Years of education: Number of children: 2 Occupational History Occupation Employer Comment [employer] Currently on Disab* Social History Main Topics Smoking status: Current Every Day Smoker Packs/day: 1.00 Years: 32.00 Types: Cigarettes Start date: 12/28/1984 Smokeless status: Never Used Alcohol use: No Drug use: No Sexual activity: Not Currently EXAM: BP 118/70 Pulse 74 Resp 18 Wt (!) 140.6 kg (310 lb) LMP 01/27/2006 BMI 45.78 kg/m2 General Appearance: Well appearing, alert, in no acute distress, well-hydrated, well nourished., Morbidly obese. Ear: left ear, normal Throat: normal exam Neck: normal exam Lungs: Positive findings: wheezing . Heart: RRR without murmur, gallop, or rubs. No ectopy. Foot: left; some redness to top of foot, discoloration of toes, decreased pulses Health Maintenance List DILATED RETINAL EXAM due on 12/18/2016 HBA1C due on 10/25/2017 DIABETIC FOOT EXAM due on 11/12/2017 LDL due on 2017 MAMMOGRAM due on 03/31/2018 URINE ALBUMIN CREATININE RATIO due on 05/12/2018 PAP EVERY 5 YEARS due on 07/21/2018 HPV EVERY 5 YEARS due on 07/21/2018 COLORECTAL CANCER SCREENING,SEE MODIFIER due on 02/08/2024 TETANUS due on 03/20/2025 ONE PNEUMOVAX PRIOR TO AGE 65 Completed INFLUENZA Completed Data reviewed [facility] ER reports 06/04/17 ASSESSMENT/PLAN: 1. Cough - ICD9: 786.2, ICD10: R05 (primary diagnosis) Start Doxycycline 100 mg BID 2. Lower urinary tract infectious disease - ICD9: 599.0, ICD10: N39.0 chronic - Patient education for prevention given 3. Recurrent UTI - ICD9: 599.0, ICD10: N39.0 chronic - Patient education for prevention given 4. Screening for cervical cancer - ICD9: V76.2, ICD10: Z12.4 - CONSULT TO GYNECOLOGY 5. Screening for malignant neoplasm of breast - ICD9: V76.10, ICD10: Z12.31 - CRYS SCREENING 6. Fibromyalgia - ICD9: 729.1, ICD10: M79.7 Start Prednisone 10 mg daily for 1 month Given Ibuprofen 800 mg PRN 7. Pain - ICD9: 780.96, ICD10: R52 Start Prednisone 10 mg daily for 1 month Given Ibuprofen 800 mg PRN Follow up in 1 month. Mignon Walsh MD The documentation for this note was completed by Magalie Mckeon Ma acting as scribe for Mignon Walsh MD. June 08, 2017 11:34 AM. Referring Provider: SELF [[id number]] Allergies As of Date: 06/08/2017 Noted Allergy Reaction MACROBID (NITROFURANTOIN MONOHYD/*11/07/2015 9 - Itching Comments: Hives and rash MRI DYE (CONTRAST DYE) 08/02/2009 11 - Vomiting Comments: constant vomiting, swell up, NEEDS premedication but still gets sick, not as bad FENTANYL 05/09/2013 5 - Intolerance Comments: Feels like throat is closing METFORMIN 08/20/2015 8 - GI Upset Comments: Has tried immediate release and XR formulation and unable to tolerate either SULFA (SULFONAMIDE ANTIBIOTICS) 05/09/2013 9 - Itching ct scan dye [Other] 08/02/2009 11 - Vomiting Comments: Vomiting, swelling of face: Needs premedication and gets sick, but not as bad Date Reviewed: 06/08/2017 Reviewed by: Magalie Mckeon Ma - Fully Assessed Reason for Visit: ED Follow-up [821] Cmt: [facility] Primary Visit Diagnosis:Cough [R05] Other Visit Diagnoses:Lower urinary tract infectious disease [N39.0] Recurrent UTI [N39.0] Screening for cervical cancer [Z12.4] Screening for malignant neoplasm of breast [Z12.31] Fibromyalgia [M79.7] Pain [R52] Order(s):CONSULT TO GYNECOLOGY [9013] Order #: [id number]: 1 CRYS SCREENING [[id number]] Order #: [id number] FUTURE predniSONE (DELTASONE) 10 mg tabletTake 1 tablet by mouth once daily.Disp: 30 tabletRfl: 0 ibuprofen (MOTRIN) 800 mg tabletTake 1 tablet by mouth every 8 hours as needed for Pain. Take with food.Disp: 60 tabletRfl: 2 doxycycline monohydrate (MONODOX) 100 mg capsuleTake 1 capsule by mouth twice daily.Disp: 10 capsuleRfl: 0 fluconazole (DIFLUCAN) 150 mg tabletTake 1 tablet by mouth one time only for 1 dose. Repeat in 3 days as needed.Disp: 2 tabletRfl: 0 Prescriptions as of 06/08/2017 Sig: IBUPROFEN 800 MG TABLET Take 1 tablet by mouth every * COMPOUNDED PRESCRIPTION Adult diaper: Depends: Size:* CYCLOBENZAPRINE 5 MG TABLET TAKE 2 TABLETS BY MOUTH EVERY* ABATACEPT 125 MG/ML SUBCUTANE* Inject 125 mg subcutaneously * ALBUTEROL SULFATE HFA 90 MCG/* Inhale 2 Puffs as instructed * EMPAGLIFLOZIN 10 MG TABLET Take 1 tablet by mouth once d* GABAPENTIN 800 MG TABLET TAKE 2 TABLETS BY MOUTH EVERY* SITAGLIPTIN 100 MG TABLET Take 1 tablet by mouth once d* GUAIFENESIN 100 MG/5 ML ORAL * Take 10 mL by mouth three mariza* BLOOD-GLUCOSE METER KIT Glucose Meter of Choice - Kit* BENZONATATE 100 MG CAPSULE Take 1 capsule by mouth three* PANTOPRAZOLE 40 MG TABLET,DEL* TAKE 1 TABLET BY MOUTH DAILY ATORVASTATIN 20 MG TABLET TAKE 1 TABLET BY MOUTH AT BED* BUDESONIDE 180 MCG/ACTUATION * Inhale 2 Puffs as instructed * GLIMEPIRIDE 4 MG TABLET TAKE 1 TABLET BY MOUTH DAILY CLONAZEPAM 0.5 MG TABLET Take 1 tablet by mouth twice * LISINOPRIL 10 MG TABLET Take 1 tablet by mouth once d* KETOCONAZOLE 2 % TOPICAL CREAM Apply 1 application to affect* COMPOUNDED PRESCRIPTION Powerstep orthotics (L30.9* COMPOUNDED PRESCRIPTION Physical therapy ordered for * LEVOTHYROXINE 150 MCG TABLET Take 1 tablet by mouth daily * CHOLECALCIFEROL (VITAMIN D3) * Take 1 tablet by mouth once d* ZOFRAN ORAL Take by mouth. BLOOD SUGAR DIAGNOSTIC STRIPS Test blood sugar(s) 1- 2 time* BUSPAR ORAL Take 30 mg by mouth twice tyrell* ALBUTEROL SULFATE 2.5 MG/3 ML* Use 3 mL via nebulizer every * CPAP Initiate CPAP @ 14 cm of wate* LANCETS Test blood sugar(s) one times* LANCETS Test blood sugar(s) 1- 2 times* COMPOUNDED PRESCRIPTION Please provide patient with n* DULOXETINE 60 MG CAPSULE,SERG* Take 120 mg by mouth once tyrell* PREDNISONE 10 MG TABLET Take 1 tablet by mouth once d* DOXYCYCLINE MONOHYDRATE 100 M* Take 1 capsule by mouth twice* FLUCONAZOLE 150 MG TABLET Take 1 tablet by mouth one ti* Problem List As Of Date 06/08/2017 Noted Resolved Shortness of breath [R06.02] 07/01/2015 Asthma with exacerbation [J45.901] 07/01/2015 Viral pneumonia, unspecified [J12.9] 07/01/2015 More... MITRAL VALVE DISORDER [I05.9] Tobacco use disorder [F17.200] 07/01/2015 Essential hypertension [I10] More... MIXED HYPERLIPIDEMIA [E78.2] More... COUGH [R05] INVALID FOR* INCONTINENCE W/O SENSORY AWARENESS [N39.42] INVALID FOR*07/01/2015 URGE AND STRESS MIXED INCONTINENCE [N39.46] INVALID FOR* Morbid obesity with BMI of 45.0-49.9, adult [E6*INVALID FOR*07/01/2015 Tobacco abuse [Z72.0] INVALID FOR* Hyperlipidemia [E78.5] INVALID FOR*04/10/2016 Fibromyalgia [M79.7] INVALID FOR* Hypothyroidism [E03.9] INVALID FOR*07/01/2015 Asthma with COPD (HCC) [J44.9] INVALID FOR*07/01/2015 RLL pneumonia [J18.1] INVALID FOR*04/10/2016 GERD (gastroesophageal reflux disease) [K21.9] INVALID FOR* H. 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*INVALID FOR* NIMESH (obstructive sleep apnea) [G47.33] INVALID FOR* Asthma [J45.909] INVALID FOR* Seronegative rheumatoid arthritis (HCC) [M06.00]INVALID FOR* Controlled substance agreement signed [Z79.899] INVALID FOR* Bladder spasms [N32.89] INVALID FOR* Uncontrolled type 2 diabetes mellitus without c*INVALID FOR* Recurrent UTI [N39.0] INVALID FOR* Long-term use of immunosuppressant medication [*INVALID FOR* Prescriptions ordered this encounter Disp Refills Start End PREDNISONE 10 MG TABLET 30 t* 0 06/08/2017 Route: ORAL Sig: Take 1 tablet by mouth once daily. IBUPROFEN 800 MG TABLET 60 t* 2 06/08/2017 Route: ORAL Sig: Take 1 tablet by mouth every 8 hours as needed for Pain. Take with food. DOXYCYCLINE MONOHYDRATE 100 MG CAPSU* 10 c* 0 06/08/2017 Route: ORAL Sig: Take 1 capsule by mouth twice daily. FLUCONAZOLE 150 MG TABLET 2 ta* 0 06/08/2017 06/08/2017 Route: ORAL Sig: Take 1 tablet by mouth one time only for 1 dose. Repeat in 3 days as needed. Medications Discontinued During This Encounter ibuprofen (MOTRIN) 800 mg tablet 60 t* 2 04/27/2017 06/08/2017 Route: ORAL Sig: Take 1 tablet by mouth every 8 hours as needed for Pain. Take with food. Disc: Reason for discontinue is not on file. Disposition: Return in about 1 month (around 07/09/2017). Follow-up and Disposition History Recorded Encounter Status:Closed by MIGNON WALSH MD on 06/08/17 PROGRESS Observed: 06/08/2017 Status: COMPLETED Source: ONYX 11:34 AM [facility] REPOSITORY HNO ID: [id number] Author: Mignon Walsh Service: (none) Author Type: Physician Type: Progress Notes Filed: 06/08/2017 3:10 PM Note Text: Chief Complaint Patient presents with: ED Follow-up: [facility] HPI Katherin Suero is a 51 year old female who presents here today for ER follow up. Pt was at [facility] ER on 06/04/17 for non productive cough with SOB and dysuria. Complained of nausea but denied any vomiting, diarrhea, abdominal pain or chest pain. Pt had urine test, blood work, and chest xray done. No pneumonia found. Pt did have vaginal yeast infection, c/o cottage cheese like discharge. Pt was treated with 40 mg Prednisone given 8 tablets, Zpak and Diflucan. Pt states that she still has pain when she urinated. Has SOB and feels like she is drowing if she is lying flat in bed so she has been sleeping in a recliner. Has left side pain with breathing. Pt states that the antibiotic and prednisone did not help. Fibromyalgia: Pt states that the prednisone 5 mg twice a day has helped with the all over joint pain. She would like to possibly increase the dosage for a little while if able. She has been losing weight, has not been trying. Pt stated in past she was given Kenalog shots to help with her joint pain and that did help some. Pt has been on and off Prednisone for 25-30 years. She knows it is not good for her but it works. Pt does see a Steam Table Worker Dr. Lorenz, who gives her Toradol injections monthly. The pain does cause pt to be irritable. Has had some left foot swelling and burning discomfort with a dry rash to top of foot. Denies any swelling into the ankle or leg. States that the swelling does worsen as the day goes on, admits that it is minimal at this time. Does try to soak foot in epsom salts at night and elevates when able. Has purple color to the toes. Pt thinks she needs to see a REHABILITATION NURSE for a pap, has not been to REHABILITATION NURSE in 20 plus years. Agreeable to have REHABILITATION NURSE consult and Mammogram done. Past medical history, appointments, medications, allergies reviewed. Previous Medical History PAST MEDICAL HISTORY Diagnosis Date - Asthma with exacerbation - Chronic back pain - Chronic bronchitis (HCC) 06/[address] Ponce - Chronic gastritis egd 02/07/14 - Depression Dr. Jameson Psychiatrist, [facility] - Dyslipidemia elevated TG, low HDL - H. pylori infection 06/2013 - Hypothyroidism - Impaired fasting glucose 06/2013 - Leukocytosis - Mitral valve disorders(424.0) MILD PROLAPSE NO REGUGITATION - Neuropathy ([facility]) b/l feet - NIMESH (obstructive sleep apnea) - Osteoarthritis of both knees 08/2013 - Psoriatic arthritis ([facility]) Dr. Rebecca Burgess - Rheumatoid arthritis ([facility]) - RLL pneumonia ([facility]) 04/19/13 - Tobacco use disorder - Unspecified asthma(493.90) - Unspecified essential hypertension Essential hypertension - Viral pneumonia, unspecified Pneumonia Previous Surgical History PAST SURGICAL HISTORY Procedure Laterality Date - CHOLECYSTECTOMY 1995 lap - COLONOSCOP W/ OR W/O BRSH SPEC 02/07/2014 Colonoscopy - DOPPLER ECHO HEART,COMPLETE 09/02/05 EF= 65% - EGD W/O OR W/BRUSH/WASH 02/07/2014 EGD - GASTRIC BYPASS HX 1985 - LEFT HEART CATH,PERCUTANEOUS 12/02/05 NORMAL - LUMBAR SPINE FUSION COMBINED 1992 X6 Family History FAMILY HISTORY Problem Relation Age of Onset - Hypertension Mother - Cancer Father lung 70 - Stroke Maternal Grandfather 81 - Breast Cancer Maternal Aunt Patient Allergies ALLERGIES Allergen Reactions - Macrobid [Nitrofura* Itching Hives and rash - Mri Dye [Contrast D* Vomiting constant vomiting, swell up, NEEDS premedication but still gets sick, not as bad - Fentanyl Intolerance Feels like throat is closing - Metformin GI Upset Has tried immediate release and XR formulation and unable to tolerate either - Sulfa (Sulfonamide * Itching - Ct Scan Dye [Other] Vomiting Vomiting, swelling of face: Needs premedication and gets sick, but not as bad Current Medications Current Outpatient Prescriptions on File Prior to Visit: COMPOUNDED PRESCRIPTION Adult diaper: Depends: Size: [id number]: N39.46 cyclobenzaprine (FLEXERIL) 5 mg tablet TAKE 2 TABLETS BY MOUTH EVERY MORNING AND 1 TABLET IN THE AFTERNOON AND 2 TABLETS AT NIGHT abatacept (ORENCIA) 125 mg/mL syrg Inject 125 mg subcutaneously once each week. albuterol HFA (PROVENTIL HFA, VENTOLIN HFA) 90 mcg/actuation inhaler Inhale 2 Puffs as instructed every 4 hours as needed. empagliflozin (JARDIANCE) 10 mg tablet Take 1 tablet by mouth once daily. Take 1 tablet once daily in the morning gabapentin (NEURONTIN) 800 mg tablet TAKE 2 TABLETS BY MOUTH EVERY MORNING AND TAKE 1 AND 1/2 TABLETS IN THE AFTERNOON AND TAKE 1 TABLET AT BEDTIME sitaGLIPtin (JANUVIA) 100 mg tablet Take 1 tablet by mouth once daily. guaiFENesin (ROBITUSSIN) 100 mg/5 mL syrup Take 10 mL by mouth three times daily as needed. ibuprofen (MOTRIN) 800 mg tablet Take 1 tablet by mouth every 8 hours as needed for Pain. Take with food. Blood-Glucose Meter monitoring kit Glucose Meter of Choice - Kit - Dx: Type 2 DM - Uncontrolled E11.65 benzonatate (TESSALON PERLE) 100 mg capsule Take 1 capsule by mouth three times daily as needed for Cough. pantoprazole DR (PROTONIX) 40 mg tablet TAKE 1 TABLET BY MOUTH DAILY atorvastatin (LIPITOR) 20 mg tablet TAKE 1 TABLET BY MOUTH AT BEDTIME budesonide (PULMICORT FLEXHALER) 180 mcg/actuation aepb Inhale 2 Puffs as instructed twice daily. glimepiride (AMARYL) 4 mg tablet TAKE 1 TABLET BY MOUTH DAILY clonazePAM (KLONOPIN) 0.5 mg tablet Take 1 tablet by mouth twice daily. lisinopril (ZESTRIL, PRINIVIL) 10 mg tablet Take 1 tablet by mouth once daily. ketoconazole (NIZORAL) 2 % cream Apply 1 application to affected area once daily. COMPOUNDED PRESCRIPTION Powerstep orthotics(L30.9) Dermatitis (primary encounter diagnosis)(72.2) Plantar fasciitis, bilatera(E11.49) Other diabetic neurological complication associated with type 2 diabetes mellitus (HCC) COMPOUNDED PRESCRIPTION Physical therapy ordered for her for a home modification evaluation to evaluate need for lift chair or other DME that will assist patient in home and promote safety. levothyroxine (SYNTHROID) 150 mcg tablet Take 1 tablet by mouth daily before breakfast. Cholecalciferol, Vitamin D3, (VITAMIN D-3) 2,000 unit cap Take 1 tablet by mouth once daily. ONDANSETRON HCL (ZOFRAN ORAL) Take by mouth. blood sugar diagnostic (BLOOD GLUCOSE TEST) test strip Test blood sugar(s) 1-2 times daily and PRN. Dx: Type 2 DM - Controlled E11.9 Insulin: No BUSPIRONE HCL (BUSPAR ORAL) Take 30 mg by mouth twice daily. albuterol (PROVENTIL) 2.5 mg /3 mL (0.083 %) nebulizer solution Use 3 mL via nebulizer every 4 hours as needed for Wheezing/Shortness of Breath. Use over 5-15minutes. CPAP Initiate CPAP @ 14 cm of water with humidification. Mask (per patient preference) optional chin strap (if indicated) , filters, tubing, heated humidifier and lifetime supplies. Set EPR to 3. DX: NIMESH Lancets lancets Test blood sugar(s) one times daily. Dx: Type 2 DM - Controlled E11.9 Insulin: No Lancets lancets Test blood sugar(s) 1-2 times daily. Dx: Type 2 DM - Controlled E11.9 Insulin: No COMPOUNDED PRESCRIPTION Please provide patient with new nebulizer machine and supplies.Diagnosis: Wheezing, dyspnea. DULoxetine (CYMBALTA) 60 mg capsule Take 120 mg by mouth once daily. No current facility-administered medications on file prior to visit. Social History Social History Marital status: Single Spouse name: Years of education: Number of children: 2 Occupational History Occupation Employer Comment [employer] Currently on Disab* Social History Main Topics Smoking status: Current Every Day Smoker Packs/day: 1.00 Years: 32.00 Types: Cigarettes Start date: 12/28/1984 Smokeless status: Never Used Alcohol use: No Drug use: No Sexual activity: Not Currently EXAM: BP 118/70 Pulse 74 Resp 18 Wt (!) 140.6 kg (310 lb) LMP 01/27/2006 BMI 45.78 kg/m2 General Appearance: Well appearing, alert, in no acute distress, well-hydrated, well nourished., Morbidly obese. Ear: left ear, normal Throat: normal exam Neck: normal exam Lungs: Positive findings: wheezing . Heart: RRR without murmur, gallop, or rubs. No ectopy. Foot: left; some redness to top of foot, discoloration of toes, decreased pulses Health Maintenance List DILATED RETINAL EXAM due on 12/18/2016 HBA1C due on 10/25/2017 DIABETIC FOOT EXAM due on 11/12/2017 LDL due on 2017 MAMMOGRAM due on 03/31/2018 URINE ALBUMIN CREATININE RATIO due on 05/12/2018 PAP EVERY 5 YEARS due on 07/21/2018 HPV EVERY 5 YEARS due on 07/21/2018 COLORECTAL CANCER SCREENING,SEE MODIFIER due on 02/08/2024 TETANUS due on 03/20/2025 ONE PNEUMOVAX PRIOR TO AGE 65 Completed INFLUENZA Completed Data reviewed [facility] ER reports 06/04/17 ASSESSMENT/PLAN: 1. Cough - ICD9: 786.2, ICD10: R05 (primary diagnosis) Start Doxycycline 100 mg BID 2. Lower urinary tract infectious disease - ICD9: 599.0, ICD10: N39.0 chronic - Patient education for prevention given 3. Recurrent UTI - ICD9: 599.0, ICD10: N39.0 chronic - Patient education for prevention given 4. Screening for cervical cancer - ICD9: V76.2, ICD10: Z12.4 - CONSULT TO GYNECOLOGY 5. Screening for malignant neoplasm of breast - ICD9: V76.10, ICD10: Z12.31 - CRYS SCREENING 6. Fibromyalgia - ICD9: 729.1, ICD10: M79.7 Start Prednisone 10 mg daily for 1 month Given Ibuprofen 800 mg PRN 7. Pain - ICD9: 780.96, ICD10: R52 Start Prednisone 10 mg daily for 1 month Given Ibuprofen 800 mg PRN Follow up in 1 month. Mignon Walsh MD The documentation for this note was completed by Magalie Mckeon Ma acting as scribe for Mignon Walsh MD. June 08, 2017 11:34 AM. 12 LEAD ELECTROCARDIOGRAM Observed: 06/07/2017 Status: F Source: [place] 2:55 PM [facility] [place] [facility] Cardiovascular Services [address] [place] [address] 12 Lead EKG 06/04/17 1237 MR#: [id number] Acct: [id number] Name: KATHERIN SUERO Rep #: [id number] : 1965 51 From: Dane Pelayo MD Attending Dr: Status: DEP ER Ordering Dr: Yaneli Cheng MD Date: 06/04/17 Location: ED Sex: F C Admitted: Test Reason : GENERAL Blood Pressure : / mmHG Vent. Rate : 114 BPM Atrial Rate : 114 BPM P-R Int : 130 ms QRS Dur : 074 ms QT Int : 340 ms P-R-T Axes : 043 039 030 degrees QTc Int : 468 ms Sinus tachycardia with occasional Premature ventricular complexes Otherwise normal ECG Confirmed by TAMIDANE HUDSON MD ([id number]), television news video editor JOANIE MARTINES ([id number]) on 06/07/2017 2:55:07 PM Referred By: OTONIEL Confirmed By:DANE PELAYO MD 06/07/17 1455 Date Dane Pelayo MD CC: Yaneli Cheng MD; Mignon Walsh MD Signed EMERGENCY DEPARTMENT Observed: 06/04/2017 Status: F Source: SARAH ANN SUMMARY 6:21 PM [facility] [place] [facility] Medical Records Department [address] [place] [address] Emergency Department Summary 06/04/17 1224 MR#: [id number] Acct: [id number] Name: KATHERIN SUERO Rep #: [id number] : 1965 51 From: Yaneli Cheng MD PCP: Mignon Walsh MD Status: DEP ER - ER Visit Summary Date of Service: 06/04/17 Chief Complaint: Cough and dysuria History of Present Illness: The patient is a 51 F with history of COPD who presents for 1 week of cough and 2 days of dysuria. Patient states she has had a nonproductive cough for 1 week with some associated shortness of breath. She endorses a fever in the evenings. She has had nausea but no abdominal pain, chest pain, vomiting, or diarrhea. For today she is also had dysuria and suprapubic abdominal pain. She states she aches all over and just does not feel well. So states that she thinks she has a yeast infection as she is having some cottage cheeselike discharge. Patient is a smoker. She has not had any recent steroid use or antibiotics. She has history of diabetes, hypertension, COPD. Physical Examination: Vital signs: afebrile, hemodynamically stable, no hypoxia on room air General: well nourished, well developed, obese, in no distress Skin: warm, dry, no rash, no pallor HEENT: normocephalic and atraumatic; PERRL, EOMI, moist mucous membranes, neck is supple, paraspinal tenderness bilateral, full range of motion, no lymphadenopathy, no meningismus Cardiovascular: Tachycardic rate and rhythm without murmurs, no peripheral edema, 2+ pulses all distal extremities Respiratory: No increased work of breathing, lungs show diffuse wheezing and coarseness Abdominal: Abdomen is soft, suprapubic tenderness with normoactive bowel sounds, no guarding or rebound, no masses MSK: Moves all extremities, no deformities, normal strength Neuro: Awake and alert, oriented 4. No facial droop, sensation and motor function intact and symmetric Test Results: Abnormal Lab Results WBC 11.6 H RBC 5.30 Hgb 13.6 Emergency Department Course and Treatment: Patient has history of COPD, and her respiratory exam is consistent with a COPD exacerbation. Chest x-ray showed no infiltrates but hyperinflation consistent with COPD. EKG showed a sinus rhythm at a tachycardic rate without ischemia or ectopy. Patient was given DuoNeb and Solu-Medrol as well as albuterol treatments. She had improvement in her breathing afterwards. Labs showed no significant derangements. Troponin negative. Urinalysis was significantly contaminated sample with epithelial cells and did have positive yeast likely secondary to patient's complaint of cottage cheese discharge. Patient was given Diflucan to treat the candidal vulvovaginitis. She was started on a prednisone burst that she will start tomorrow. She was also given a Z-Cabrera. She was given a prescription for 1 additional Diflucan to use in 1 week if she does not have resolution of symptoms. She was discharged home in improved condition and is to follow-up with her primary care doctor. Treatment Plan: [] Disposition: [] Impression: Candidal vulvovaginitis, COPD exacerbation This note was generated with [employer] dictation software. It may contain incorrect words, spelling, and punctuation that were not noted in review of the chart prior to signing ED Disposition - Plan for ED Patient: Disposition: Home or Assisted Living Chief Complaint: General Illness Instructions: ED COPD Flare, ED Vaginal Infec Fungal Tanya Prescriptions: Azithromycin [Zithromax Z-Cabrera] 250 mg PO UD #1 box Fluconazole [Diflucan] 150 mg PO X1 PRN #1 tab PRN Reason: yeast infection Prednisone [Deltasone] 40 mg PO DAILY #8 tab Referrals: Mignon Walsh MD [Primary Care Provider] - 1-2 Days if not improving Additional Instructions: Please continue using your medications for COPD at home as prescribed by your doctor. Take the prednisone starting tomorrow for 4 days. Take the antibiotic to help prevent any infection related to your COPD. If in 1 week you are not having improvement of your yeast infection, you may take the additional dose of Diflucan that has been prescribed to you. What to do if you have Problems For any increased pain, shortness of breath, bleeding, nausea or vomiting, chest pain, or any unexpected problems, contact your Primary Care Provider. Call [facility] ([phone]) or report to the closest Emergency Room. Call 911 if necessary. 06/04/17 1821 <Electronically signed by Yaneli Cheng MD> Date Yaneli Cheng MD Cosigner Signature (If Indicated): Date CC: Mignon Walsh MD DISCHARGE INSTRUCTION Observed: 06/04/2017 Status: F Source: SARAH ANN 4:50 PM [facility] [place] [facility] Medical Records Department [address] [place] [address] Discharge Instruction 06/04/17 1426 MR#: [id number] Acct: [id number] Name: KATHERIN SUERO Rep #: [id number] : 1965 51 From: Yaneli Cheng MD PCP: Mignon Walsh MD Status: DEP ER ED Disposition - Plan for ED Patient: Disposition: Home or Assisted Living Chief Complaint: General Illness Instructions: ED Vaginal Infec Fungal Tanya, ED COPD Flare Prescriptions: Azithromycin [Zithromax Z-Cabrera] 250 mg PO UD #1 box Fluconazole [Diflucan] 150 mg PO X1 PRN #1 tab PRN Reason: yeast infection Prednisone [Deltasone] 40 mg PO DAILY #8 tab Referrals: Mignon Walsh MD [Primary Care Provider] - 1-2 Days if not improving Additional Instructions: Please continue using your medications for COPD at home as prescribed by your doctor. Take the prednisone starting tomorrow for 4 days. Take the antibiotic to help prevent any infection related to your COPD. If in 1 week you are not having improvement of your yeast infection, you may take the additional dose of Diflucan that has been prescribed to you. What to do if you have Problems For any increased pain, shortness of breath, bleeding, nausea or vomiting, chest pain, or any unexpected problems, contact your Primary Care Provider. Call [facility] ([phone]) or report to the closest Emergency Room. Call 911 if necessary. 06/04/17 1650 <Electronically signed by Yaneli Cheng MD> Date Yaneli Cheng MD Cosigner Signature (If Indicated): Date CC: Mignon Walsh MD CBC W/DIFF, AUTOMATED Collected: 06/04/2017 Status: F Source: SARAH ANN 12:47 PM [facility] [place] TYPE CODE TESTS RESULT OUT OF RANGE REFERENCE UNITS LAB L100.1000 4.4-11.0 K/mm3 High WBC 11.6 LAB L100.1200 4.2-5.4 M/mm3 Normal RBC 5.30 LAB L100.1300 12.0-15.0 g/dl Normal HGB 13.6 LAB L100.1400 37-47 % Normal HCT 42.8 LAB L100.1500 81-99 fL Low MCV 80.8 LAB L100.1600 27.0-32.0 pg Low MCH 25.7 LAB L100.1700 32-36 g/gl Low MCHC 31.8 LAB L100.1810 11.6-14.6 % High RDW CV 16.0 LAB L100.1820 35.1-43.9 fl High RDW SD 46.7 LAB L100.1900 150-450 K/mm3 Normal PLT 322 LAB L100.2000 6.2-12.0 fl Normal MPV 9.7 LAB L100.2100 47-70 % Normal NEUT% 63.4 LAB L100.2200 19-41 % Normal LY% 27.2 LAB L100.2300 0-10 % Normal MONO% 7.2 LAB L100.2400 0-5 % Normal EO% 1.6 LAB L100.2500 0-1 % Normal BASO% 0.3 LAB L100.2550 0.0-0.9 % Normal IM GRAN % 0.300 Result Comment: IG% - Immature Granulocytes (promyelocytes, myelocytes and metamyelocytes) > 1% indicates that a LEFT SHIFT is Present. LAB L100.2620 2.0-7.7 X10 3/uL Normal Absolute Neut 7.4 LAB L100.2720 0.83-4.51 X10 3/ul Normal Absolute Lymph 3.15 Performed By: #### L100.0100 #### [facility] [address] [place], [address] BASIC METABOLIC Collected: 06/04/2017 Status: F Source: SARAH ANN PROFILE ([facility]) 12:47 PM [facility] [place] Order Comment: 'TROP' Serial specimen #1, #2, #3, or #4: 1 TYPE CODE TESTS RESULT OUT OF RANGE REFERENCE UNITS LAB L501.0100 74-106 mg/dL High GLU 187 Result Comment: Fasting Glucose result greater than or equal to 126 mg/dL suggests DIABETES MELLITUS per A.D.A. criteria. Please note revised GLUCOSE reference range effective 2017. LAB L501.1000 7-18 mg/dL Low BUN 6 LAB L501.1100 0.55-1.02 mg/dL Normal CREAT,SERUM 0.68 Result Comment: The validity of the calculated GFR AND GFRAA in patients over 70 years has not been determined. Clinical correlation is essential. LAB L501.1110 >60 mL/min Normal EST GFR 97 Result Comment: Non- GFR Calc LAB L501.1115 >60 mL/min Normal EST GFR - AA 118 Result Comment: GFR Calc LAB L501.1255 ml/min Normal Estimated CRCL 102.29 LAB L501.1300 10-20 RATIO Low BUN/CRE 8.8 LAB L501.2200 8.5-10 mg/dL .1 CA Normal 9.0 LAB L501.5300 136-14 mmol/L 5 NA Normal 140 LAB L501.5600 3.5-5. mmol/L 1 K Normal 3.8 LAB L501.5900 98-107 mmol/L CL Normal 103 LAB L501.6100 21.0-3 mmol/L 2.0 CO2 Normal 25.0 LAB L501.6200 5-15 GAP Normal 12 Performed By: #### L500.2500, L501.4010 #### [facility] [address] [place], [address] TROPONIN-I Collected: 06/04/2017 Status: F Source: SARAH ANN 12:47 PM [facility] [place] Order Comment: 'TROP' Serial specimen #1, #2, #3, or #4: 1 TYPE CODE TESTS RESULT OUT OF RANGE REFERENCE UNITS LAB L501.4010 <0.06 ng/mL Normal < 0.02 TROPONIN-I Result Comment: TROPONIN-I EXPECTED VALUES <0.05 NEGATIVE 0.06 - 0.59 AT RISK OF NV > OR = 0.60 SUGGEST NV Performed By: #### L500.2500, L501.4010 #### [facility] [place], [address] Observed: 06/04/2017 Status: F Source: SARAH ANN INFLUENZA A+B (RAPID 12:33 PM [facility]) REPOSITORY Order Date: 06/04/17 FLU A/B Rapid Negative test results should be confirmed by culture. Order Rapid Viral Culture for Influenzae A+B ([id number]) if clinically indicated. Influenza Ag, Direct Presumptive NEGATIVE for Influenza A/B Antigen (See Note) Performed By: #### M101.0101 #### [facility] [place], [address] CHEST PA AND LATERAL Observed: 06/04/2017 Status: F Source: SARAH ANN 12:24 PM [facility] [place] [facility] Imaging Services [address] [place] [address] Chest PA and Lateral MR#: [id number] Acct: [id number] Name: KATHERIN SUERO Rep #: [id number] : 1965 F 51 From: Zander Bethea MD PCP: Mignon Walsh MD Status: REG ER Study: Chest PA and Lateral Date of Exam: 06/04/17 Exam# [id number] Ordering Dr: Yaneli Cheng MD STUDY: X-RAY CHEST REASON FOR EXAM: Female, 51 years old. Cough for several weeks. TECHNIQUE: PA and lateral views of the chest. COMPARISON: Comparison is made with prior study dated April 03, 2017. FINDINGS: EKG electrodes are seen. Hyperinflation. The lungs are clear. There is no demonstrated pleural abnormality. Normal size heart. Normal mediastinum and tony. Normal visualized pulmonary arteries. Normal visualized aortic arch and descending thoracic aorta. Normal visualized thoracic spine. Normal visualized ribs, clavicles, and shoulders. Surgical clips are seen in the left upper quadrant. RAD/Chest PA and Lateral IMPRESSION: Hyperinflation. The lungs are clear. Electronically Signed: Zander Bethea MD at 13:21 EST Tel [phone], Service support , CC: Yaneli Cheng MD; Mignon Walsh MD Mixer Pigment: Signed URINALYSIS, COMPLETE Collected: 06/04/2017 Status: F Source: [place] 12:15 PM [facility] [place] Order Comment: Order Date: 06/04/17 How was Urine Obtained? MEDICAL ATTENDANT TO SPECIFY TYPE CODE TESTS RESULT OUT OF RANGE REFERENCE UNITS LAB L400.3000 Yellow COLOR Normal Yellow LAB L400.3050 Clear Normal CLARITY Clear LAB L400.3200 Normal mg/dl High GLUCOSE, UR 1000 LAB L400.3300 Negative mg/dL Normal BILIRUBIN URINE Negative LAB L400.3400 Negative mg/dl High 50 KETONE UR LAB L400.3465 1.002-1.030 Normal SP.GR. DIPSTX 1.015 LAB L400.3550 5.0 - 8.0 pH UR Normal 6.0 LAB L400.3600 Negative mg/dl PROT Normal DIPSTX Negative LAB L400.3700 Normal mg/dl Normal UROBILI Normal LAB L400.3750 Negative Normal NITRITE UR Negative LAB L400.3780 Negative /ul High 10 OCCULT BLOOD-UR LAB L400.3800 Negative /ul High LEUK ESTERASE 100 LAB L400.4050 0-5 /hpf WBC Normal 5-10 SEEN LAB L400.4100 0-5 /hpf Normal RBC-UA 0-5 SEEN LAB L400.4150 5-10 /hpf SQUAM Normal EPI 10-25 SEEN LAB L400.4300 None Seen /hpf 1+ Normal BACTERIA LAB L400.4350 <or=2+ /hpf 0 Normal MUCUS, URINE SEEN LAB L400.5200 None Seen /hpf 2+ Normal YEAST-URINE Performed By: #### L400.0001 #### [facility] [address] [place], [address] Observed: 06/04/2017 Status: F Source: SARAH ANN CULTURE, URINE 12:15 PM [facility] [place] Order Date: 06/04/17 Urine Culture ORGANISM 1: Mixed Gram Positive Organisms [place] Count 1000-10,000 MIX CULTURE Mixed contaminants. Submit a new specimen if indicated. Performed By: #### M100.0650 #### [facility] [address] [place], [address] PROGRESS Observed: 06/02/2017 Status: COMPLETED Source: ONYX 4:15 PM [facility] REPOSITORY HNO ID: [id number] Author: Mignon Walsh Service: (none) Author Type: Physician Type: Progress Notes Filed: 06/03/2017 9:45 AM Note Text: Noted; order filed Mignon Walsh MD PROGRESS Observed: 06/02/2017 Status: COMPLETED Source: ONYX 11:35 AM [facility] REPOSITORY HNO ID: [id number] Author: Malik Bermudez (Rn) Service: (none) Author Type: Registered Nurse Type: Progress Notes Filed: 06/03/2017 9:45 AM Note Text: PRIMARY CARE COORDINATION PRE-VISIT ASSESSMENT Provider Action/FYI: 1. Spk with Pt who noted has had non productive cough for past 2 weeks, sounded congested on phone, Pt states has occasional Sob while coughing. Pt is not using any OTC at this time. Instructed to use a Humidifier. Pt states does not have one, noted can get in a hot shower to loosen secretions. Pt previously ordered Guaifenesin liquid, and TESSALON PERLE in 03/2017 2. Pt states continues to have Urinary symptoms, burning painful urination which has not changed. 3. Pt declines same day appt, notes needs to schedule transportation, scheduled Appt with Meena Smalls NP for 06/04/17, Instructed to be seen in Urgent care/ ER if she has a change in status CP, Sob. Pt verbalized understanding. 4. Pt states her BS are improved range 98-[address] Walsh Appt 06/07/17 , Hgb A1C pended Patient has been identified by name and date of . Next Office Visit: 06/07/2017 Last Office Visit Plan/Progress: 05/12/2017 Medication Review: Address in future encounter Health Maintenance: DILATED RETINAL EXAM due on 12/18/2016 Interventions/PCC Plan of Care: Pended Hgb A1C Thank You, Aidan Gan RN June 02, 2017 Aidan Gan RN June 02, 2017 11:35 AM CNPTOUTREACH Observed: 06/02/2017 Status: COMPLETED Source: ONYX 12:00 AM [facility] REPOSITORY Patient Outreach (FAMPWS) PIOKATHERIN Christine ([id number]) 1965 F CHT Date Time Provider Department 06/02/17 MALIK BERMUDEZ (RN) FAMPWS During your visit today, we recorded the following information about you: Aidan Gan RN 06/03/2017 9:45 AM Signed PRIMARY CARE COORDINATION PRE-VISIT ASSESSMENT Provider Action/FYI: 1. Spk with Pt who noted has had non productive cough for past 2 weeks, sounded congested on phone, Pt states has occasional Sob while coughing. Pt is not using any OTC at this time. Instructed to use a Humidifier. Pt states does not have one, noted can get in a hot shower to loosen secretions. Pt previously ordered Guaifenesin liquid, and TESSALON PERLE in 03/2017 2. Pt states continues to have Urinary symptoms, burning painful urination which has not changed. 3. Pt declines same day appt, notes needs to schedule transportation, scheduled Appt with Meena Smalls OUTPATIENT SERVICES DIRECTOR for 06/04/17, Instructed to be seen in Urgent care/ ER if she has a change in status CP, Sob. Pt verbalized understanding. 4. Pt states her BS are improved range 98-[address] Walsh Appt 06/07/17 , Hgb A1C pended Patient has been identified by name and date of . Next Office Visit: 06/07/2017 Last Office Visit Plan/Progress: 05/12/2017 Medication Review: Address in future encounter Health Maintenance: DILATED RETINAL EXAM due on 12/18/2016 Interventions/PCC Plan of Care: Pended Hgb A1C Thank You, Aidan Gan RN June 02, 2017 Aidan Gan RN June 02, 2017 11:35 AM Mignon Walsh MD 06/03/2017 9:45 AM Signed Noted; order filed Mignon Walsh MD Allergies As of Date: 06/02/2017 Noted Allergy Reaction MACROBID (NITROFURANTOIN MONOHYD/*11/07/2015 9 - Itching Comments: Hives and rash MRI DYE (CONTRAST DYE) 08/02/2009 11 - Vomiting Comments: constant vomiting, swell up, NEEDS premedication but still gets sick, not as bad FENTANYL 05/09/2013 5 - Intolerance Comments: Feels like throat is closing METFORMIN 08/20/2015 8 - GI Upset Comments: Has tried immediate release and XR formulation and unable to tolerate either SULFA (SULFONAMIDE ANTIBIOTICS) 05/09/2013 9 - Itching ct scan dye [Other] 08/02/2009 11 - Vomiting Comments: Vomiting, swelling of face: Needs premedication and gets sick, but not as bad Date Reviewed: 05/12/2017 Reviewed by: Dc (Yoan) YOAN mSalls - Fully Assessed Reason for Visit: [employer] Assistant Chronic Care [3612] Cmt: Hlth Maintenance, Pcp Appt Reason For Visit History Recorded Primary Visit Diagnosis:Uncontrolled type 2 diabetes mellitus without complication, without long-term current use of insulin (HCC) [E11.65] Order(s):HGB A1C [LYNQX4G] Order #: [id number] FUTURE Prescriptions as of 06/02/2017 Sig: ALBUTEROL SULFATE HFA 90 MCG/* Inhale 2 Puffs as instructed * GUAIFENESIN 100 MG/5 ML ORAL * Take 10 mL by mouth three mariza* BENZONATATE 100 MG CAPSULE Take 1 capsule by mouth three* BUDESONIDE 180 MCG/ACTUATION * Inhale 2 Puffs as instructed * ALBUTEROL SULFATE 2.5 MG/3 ML* Use 3 mL via nebulizer every * CYCLOBENZAPRINE 5 MG TABLET TAKE 2 TABLETS BY MOUTH EVERY* ABATACEPT 125 MG/ML SUBCUTANE* Inject 125 mg subcutaneously * EMPAGLIFLOZIN 10 MG TABLET Take 1 tablet by mouth once d* GABAPENTIN 800 MG TABLET TAKE 2 TABLETS BY MOUTH EVERY* SITAGLIPTIN 100 MG TABLET Take 1 tablet by mouth once d* IBUPROFEN 800 MG TABLET Take 1 tablet by mouth every * COMPOUNDED PRESCRIPTION Adult diaper: Depends: Size:* BLOOD-GLUCOSE METER KIT Glucose Meter of Choice - Kit* PANTOPRAZOLE 40 MG TABLET,DEL* TAKE 1 TABLET BY MOUTH DAILY ATORVASTATIN 20 MG TABLET TAKE 1 TABLET BY MOUTH AT BED* GLIMEPIRIDE 4 MG TABLET TAKE 1 TABLET BY MOUTH DAILY CLONAZEPAM 0.5 MG TABLET Take 1 tablet by mouth twice * LISINOPRIL 10 MG TABLET Take 1 tablet by mouth once d* KETOCONAZOLE 2 % TOPICAL CREAM Apply 1 application to affect* COMPOUNDED PRESCRIPTION Powerstep orthotics (L30.9* COMPOUNDED PRESCRIPTION Physical therapy ordered for * LEVOTHYROXINE 150 MCG TABLET Take 1 tablet by mouth daily * CHOLECALCIFEROL (VITAMIN D3) * Take 1 tablet by mouth once d* ZOFRAN ORAL Take by mouth. BLOOD SUGAR DIAGNOSTIC STRIPS Test blood sugar(s) 1- 2 time* BUSPAR ORAL Take 30 mg by mouth twice tyrell* CPAP Initiate CPAP @ 14 cm of wate* LANCETS Test blood sugar(s) one times* LANCETS Test blood sugar(s) 1- 2 times* COMPOUNDED PRESCRIPTION Please provide patient with n* DULOXETINE 60 MG CAPSULE,SERG* Take 120 mg by mouth once tyrell* Problem List As Of Date 06/02/2017 Noted Resolved Shortness of breath [R06.02] 07/01/2015 Asthma with exacerbation [J45.901] 07/01/2015 Viral pneumonia, unspecified [J12.9] 07/01/2015 More... MITRAL VALVE DISORDER [I05.9] Tobacco use disorder [F17.200] 07/01/2015 Essential hypertension [I10] More... MIXED HYPERLIPIDEMIA [E78.2] More... COUGH [R05] INVALID FOR* INCONTINENCE W/O SENSORY AWARENESS [N39.42] INVALID FOR*07/01/2015 URGE AND STRESS MIXED INCONTINENCE [N39.46] INVALID FOR* Morbid obesity with BMI of 45.0-49.9, adult [E6*INVALID FOR*07/01/2015 Tobacco abuse [Z72.0] INVALID FOR* Hyperlipidemia [E78.5] INVALID FOR*04/10/2016 Fibromyalgia [M79.7] INVALID FOR* Hypothyroidism [E03.9] INVALID FOR*07/01/2015 Asthma with COPD ([facility]) [J44.9] INVALID FOR*07/01/2015 RLL pneumonia [J18.1] INVALID FOR*04/10/2016 GERD (gastroesophageal reflux disease) [K21.9] INVALID FOR* H. 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*INVALID FOR* NIMESH (obstructive sleep apnea) [G47.33] INVALID FOR* Asthma [J45.909] INVALID FOR* Seronegative rheumatoid arthritis ([facility]) [M06.00]INVALID FOR* Controlled substance agreement signed [Z79.899] INVALID FOR* Bladder spasms [N32.89] INVALID FOR* Uncontrolled type 2 diabetes mellitus without c*INVALID FOR* Recurrent UTI [N39.0] INVALID FOR* Long-term use of immunosuppressant medication [*INVALID FOR* Encounter Status:Closed by AIDAN GAN on 06/03/17 EMERGENCY DEPARTMENT Observed: 05/19/2017 Status: F Source: [place] SUMMARY 5:26 PM [facility] [place] [facility] Medical Records Department [address] [place] [address] Emergency Department Summary 05/19/17 1345 MR#: [id number] Acct: [id number] Name: KATHERIN SUERO Rep #: [id number] : 1965 51 From: Jackie Madsen MD PCP: Mignon Walsh MD Status: DEP ER - ER Visit Summary Date of Service: 05/19/17 Chief Complaint: Abscess History of Present Illness: The patient is a 51 F who states that she noted an abscess to the right axilla yesterday. It is already spontaneously draining. She denies fever. She states 2 people who live in the same house either have or have recently had MRSA. Patient is also complaining of increasing wheezing and shortness of breath consistent with her COPD. She is requesting steroids to help with her breathing. Physical Examination: Vital signs are significant for heart rate 125, otherwise unremarkable. Patient's lying in bed no acute distress. She is nontoxic appearing. Head neck examination is normal. Heart is tachycardic and regular. Lung sounds are with mild expiratory wheeze. Abdomen is soft, obese, nontender. Examination significant for right axilla which reveals a 1 x 2 cm draining abscess. No cellulitis is noted. Test Results: [] Emergency Department Course and Treatment: As her abscess is already draining, further I AND D is not required at this time. She will be treated with doxycycline for MRSA coverage. She will also be given 4 days of prednisone, first dose given here. Treatment Plan: [] Disposition: Discharge Impression: 1. Cutaneous abscess right axilla 2. COPD exacerbation This note was generated with Tastemade dictation software. It may contain incorrect words, spelling, and punctuation that were not noted in review of the chart prior to signing ED Disposition - Plan for ED Patient: Disposition: Home or Assisted Living Chief Complaint: Abscess Instructions: ED Staph Infec Abx Tx Only, ED COPD Flare Prescriptions: Prednisone [Deltasone] 60 mg PO DAILY #9 tablet Doxycycline Monohydrate 100 mg PO BID #20 capsule Referrals: Mignon Walsh MD [Primary Care Provider] - 1-2 Weeks What to do if you have Problems For any increased pain, shortness of breath, bleeding, nausea or vomiting, chest pain, or any unexpected problems, contact your Primary Care Provider. Call [facility] ([phone]) or report to the closest Emergency Room. Call 911 if necessary. 05/19/17 1726 <Electronically signed by Jackie Madsen MD> Date Jackie Madsen MD Cosigner Signature (If Indicated): Date CC: Mignon Walsh MD DISCHARGE INSTRUCTION Observed: 05/19/2017 Status: F Source: [place] ANN 2:03 PM [facility] [place] [facility] Medical Records Department [address] [place] [id number] Discharge Instruction 05/19/17 1401 MR#: [id number] Acct: [id number] Name: KATHERIN SUERO Rep #: [id number] : 1965 51 From: Jackie Madsen MD PCP: Mignon Walsh MD Status: REG ER ED Disposition - Plan for ED Patient: Disposition: Home or Assisted Living Chief Complaint: Abscess Instructions: ED Staph Infec Abx Tx Only, ED COPD Flare Prescriptions: Prednisone [Deltasone] 60 mg PO DAILY #9 tablet Doxycycline Monohydrate 100 mg PO BID #20 capsule Referrals: Mignon Walsh MD [Primary Care Provider] - 1-2 Weeks What to do if you have Problems For any increased pain, shortness of breath, bleeding, nausea or vomiting, chest pain, or any unexpected problems, contact your Primary Care Provider. Call [facility] ([phone]) or report to the closest Emergency Room. Call 911 if necessary. 05/19/17 1403 <Electronically signed by Jackie Madsen MD> Date Jackie Madsen MD Cosigner Signature (If Indicated): Date CC: Mignon Walsh MD PROGRESS Observed: 05/12/2017 Status: COMPLETED Source: ONYX 9:48 AM [facility] REPOSITORY HNO ID: [id number] Author: Dc (Technical Specialist [employer]ogen[employer]) YOAN Smalls Service: (none) Author Type: Nurse Practitioner Type: Progress Notes Filed: 05/12/2017 10:16 AM Note Text: Chief Complaint Patient presents with: Cough: sob, joints ache, bladder hurts HPI Kahterin Suero is a 51 year old female who presents here today for Above Complaints.. Patient presents to the office with complaints of dysuria, bladder pain, and shortness of breath. History of COPD, recurrent UTIs. Called into Dr. Walsh yesterday to complain of symptoms. Urine culture and urine chem was ordered and completed at the lab today. She also had a chest x-ray completed today that was from my last encounter with her. She did not get that chest x-ray completed on 04/27/2017 when she presented for similar symptoms. Urine sample is pending at this time. Chest x-ray is negative today for pneumonia. Does complain of dysuria. No frequency or urgency. No hematuria. Complaints of wheezing, shortness of breath. Positive for mucus production. No chest pain. No eye, ear, nose or throat complaints. Also complaints of lower suprapubic pain. Has been using pulmicort as prescribed daily, but has ran out of albuterol inhaler. States that her blood glucose has improved, it was 101 today fasting. Has been using ibuprofen for pain, not helping. Past medical history, appointments, medications, allergies reviewed. Previous Medical History PAST MEDICAL HISTORY Diagnosis Date - Asthma with exacerbation - Chronic back pain - Chronic bronchitis (HCC) 06/[address] Ponce - Chronic gastritis egd 02/07/14 - Depression [facility] - Dyslipidemia elevated TG, low HDL - H. pylori infection 06/2013 - Hypothyroidism - Impaired fasting glucose 06/2013 - Leukocytosis - Mitral valve disorders(424.0) MILD PROLAPSE NO REGUGITATION - Neuropathy ([facility]) b/l feet - NIMESH (obstructive sleep apnea) - Osteoarthritis of both knees 08/2013 - Psoriatic arthritis ([facility]) Dr. Rebecca Burgess - Rheumatoid arthritis ([facility]) - RLL pneumonia ([facility]) 04/19/13 - Tobacco use disorder - Unspecified asthma(493.90) - Unspecified essential hypertension Essential hypertension - Viral pneumonia, unspecified Pneumonia Previous Surgical History PAST SURGICAL HISTORY Procedure Laterality Date - CHOLECYSTECTOMY 1995 lap - COLONOSCOP W/ OR W/O BRSH SPEC 02/07/2014 Colonoscopy - DOPPLER ECHO HEART,COMPLETE 09/02/05 EF= 65% - EGD W/O OR W/BRUSH/WASH 02/07/2014 EGD - GASTRIC BYPASS HX 1985 - LEFT HEART CATH,PERCUTANEOUS 12/02/05 NORMAL - LUMBAR SPINE FUSION COMBINED 1992 X6 Family History FAMILY HISTORY Problem Relation Age of Onset - Hypertension Mother - Cancer Father lung 70 - Stroke Maternal Grandfather 81 - Breast Cancer Maternal Aunt Patient Allergies ALLERGIES Allergen Reactions - Macrobid [Nitrofura* Itching Hives and rash - Mri Dye [Contrast D* Vomiting constant vomiting, swell up, NEEDS premedication but still gets sick, not as bad - Fentanyl Intolerance Feels like throat is closing - Metformin GI Upset Has tried immediate release and XR formulation and unable to tolerate either - Sulfa (Sulfonamide * Itching - Ct Scan Dye [Other] Vomiting Vomiting, swelling of face: Needs premedication and gets sick, but not as bad Current Medications Current Outpatient Prescriptions on File Prior to Visit: empagliflozin (JARDIANCE) 10 mg tablet Take 1 tablet by mouth once daily. Take 1 tablet once daily in the morning gabapentin (NEURONTIN) 800 mg tablet TAKE 2 TABLETS BY MOUTH EVERY MORNING AND TAKE 1 AND 1/2 TABLETS IN THE AFTERNOON AND TAKE 1 TABLET AT BEDTIME sitaGLIPtin (JANUVIA) 100 mg tablet Take 1 tablet by mouth once daily. guaiFENesin (ROBITUSSIN) 100 mg/5 mL syrup Take 10 mL by mouth three times daily as needed. ibuprofen (MOTRIN) 800 mg tablet Take 1 tablet by mouth every 8 hours as needed for Pain. Take with food. COMPOUNDED PRESCRIPTION Adult diaper: Depends: Size: [id number]: R32: Urinary Incontinence. Blood-Glucose Meter monitoring kit Glucose Meter of Choice - Kit - Dx: Type 2 DM - Uncontrolled E11.65 benzonatate (TESSALON PERLE) 100 mg capsule Take 1 capsule by mouth three times daily as needed for Cough. pantoprazole DR (PROTONIX) 40 mg tablet TAKE 1 TABLET BY MOUTH DAILY atorvastatin (LIPITOR) 20 mg tablet TAKE 1 TABLET BY MOUTH AT BEDTIME cyclobenzaprine (FLEXERIL) 5 mg tablet TAKE 2 TABLETS BY MOUTH EVERY MORNING AND 1 TABLET IN THE AFTERNOON AND 2 TABLETS AT NIGHT budesonide (PULMICORT FLEXHALER) 180 mcg/actuation aepb Inhale 2 Puffs as instructed twice daily. glimepiride (AMARYL) 4 mg tablet TAKE 1 TABLET BY MOUTH DAILY abatacept (ORENCIA) 125 mg/mL syrg Inject 125 mg subcutaneously once each week. clonazePAM (KLONOPIN) 0.5 mg tablet Take 1 tablet by mouth twice daily. lisinopril (ZESTRIL, PRINIVIL) 10 mg tablet Take 1 tablet by mouth once daily. ketoconazole (NIZORAL) 2 % cream Apply 1 application to affected area once daily. COMPOUNDED PRESCRIPTION Powerstep orthotics(L30.9) Dermatitis (primary encounter diagnosis)(72.2) Plantar fasciitis, bilatera(E11.49) Other diabetic neurological complication associated with type 2 diabetes mellitus (HCC) COMPOUNDED PRESCRIPTION Physical therapy ordered for her for a home modification evaluation to evaluate need for lift chair or other DME that will assist patient in home and promote safety. levothyroxine (SYNTHROID) 150 mcg tablet Take 1 tablet by mouth daily before breakfast. Cholecalciferol, Vitamin D3, (VITAMIN D-3) 2,000 unit cap Take 1 tablet by mouth once daily. ONDANSETRON HCL (ZOFRAN ORAL) Take by mouth. blood sugar diagnostic (BLOOD GLUCOSE TEST) test strip Test blood sugar(s) 1-2 times daily and PRN. Dx: Type 2 DM - Controlled E11.9 Insulin: No BUSPIRONE HCL (BUSPAR ORAL) Take 30 mg by mouth twice daily. albuterol (PROVENTIL) 2.5 mg /3 mL (0.083 %) nebulizer solution Use 3 mL via nebulizer every 4 hours as needed for Wheezing/Shortness of Breath. Use over 5-15minutes. CPAP Initiate CPAP @ 14 cm of water with humidification. Mask (per patient preference) optional chin strap (if indicated) , filters, tubing, heated humidifier and lifetime supplies. Set EPR to 3. DX: NIMESH Lancets lancets Test blood sugar(s) one times daily. Dx: Type 2 DM - Controlled E11.9 Insulin: No Lancets lancets Test blood sugar(s) 1-2 times daily. Dx: Type 2 DM - Controlled E11.9 Insulin: No albuterol HFA (PROVENTIL HFA, VENTOLIN HFA) 90 mcg/actuation inhaler Inhale 2 Puffs as instructed every 4 hours as needed. COMPOUNDED PRESCRIPTION Please provide patient with new nebulizer machine and supplies.Diagnosis: Wheezing, dyspnea. DULoxetine (CYMBALTA) 60 mg capsule Take 120 mg by mouth once daily. No current facility-administered medications on file prior to visit. Social History Social History Marital status: Single Spouse name: Years of education: Number of children: 2 Occupational History Occupation Employer Comment [employer] Currently on Disab* Social History Main Topics Smoking status: Current Every Day Smoker Packs/day: 1.00 Years: 32.00 Types: Cigarettes Start date: 12/28/1984 Smokeless status: Never Used Alcohol use: No Drug use: No Sexual activity: Not Currently REVIEW OF SYSTEMS: as above ? Reviewed relevant PMHx, PSHx, Social Hx, current medications and allergies. EXAM: BP 111/85 Pulse (!) 122 Temp 36.3 ?C (97.3 ?F) (Tympanic) LMP 01/27/2006 SpO2 98% General Appearance: Well appearing, alert, in no acute distress, well-hydrated, well nourished., Morbidly obese. Head: Normocephalic, no masses, lesions, tenderness or abnormalities. Eyes: Anicteric sclera. Pupils are equally round and reactive to light. Extraocular movements are intact. . Ears: External ears normal, canals clear. Nose/Sinuses: Nares normal, septum midline, mucosa normal, no drainage or sinus tenderness. Oropharynx: Lips, mucosa, and tongue normal, teeth and gums normal, oropharynx normal. Lungs: Positive findings: wheezing , rhonchi throughout posterior lung batista. Heart: RRR without murmur, gallop, or rubs. No ectopy. Abdomen: Normal abdominal exam, Abdomen soft, non-tender. Bowel sounds normal. No masses, organomegaly. Moderate suprapubic tenderness. Health Maintenance List DILATED RETINAL EXAM due on 12/18/2016 URINE ALBUMIN CREATININE RATIO due on 07/08/2017 HBA1C due on 10/25/2017 DIABETIC FOOT EXAM due on 11/12/2017 LDL due on 2017 MAMMOGRAM due on 03/31/2018 PAP EVERY 5 YEARS due on 07/21/2018 HPV EVERY 5 YEARS due on 07/21/2018 COLORECTAL CANCER SCREENING,SEE MODIFIER due on 02/08/2024 TETANUS due on 03/20/2025 ONE PNEUMOVAX PRIOR TO AGE 65 Completed INFLUENZA Completed Data reviewed Impression IMPRESSION: Stable chest. ?No acute cardiopulmonary process. Mixer Pigment: DIALLO ? Transcribe Date/Time: May 12 2017 ?9:44A Dictated by : ARI RUSSO MD This examination was interpreted and the report reviewed and electronically signed by: ARI RUSSO MD on May 12 2017 ?9:45AM ?EST Results-Findings * * *Final Report* * * DATE OF EXAM: May 12 2017 ?9:40AM ? WOX ? 5291 ?- ?XR CHEST 2V FRONTAL/LAT ?/ PROCEDURE REASON: Cough ?? ? * * * * Physician Interpretation * * * * ?EXAMINATION: ?CHEST RADIOGRAPH (2 VIEW FRONTAL AND LATERAL) Clinical History: ?Cough M: ?XC2_4 Comparison: ?Comparison is made to prior chest dated 02/16/2017 RESULT: Lines, tubes, and devices: ?None. Lungs and pleura: Mild chronic interstitial lung changes with bibasilar fibrotic change stable. ?There is no focal consolidation or acute pleural process. There is no overt pulmonary edema. Cardiomediastinal silhouette: ?Normal cardiomediastinal silhouette. Other: The bony structures are intact. ASSESSMENT/PLAN: 1. COPD with exacerbation (HCC) - ICD9: 491.21, ICD10: J44.1 (primary diagnosis) - Chest x-ray negative today, see above. Will treat with prednisone taper. - Continue pulmicort use, refill albuterol. - ALBUTEROL SULFATE HFA 90 MCG/ACTUATION AEROSOL INHALER - PREDNISONE 10 MG TABLET 2. Recurrent UTI (urinary tract infection) - ICD9: 599.0, ICD10: N39.0 acute - Send urine for culture - Begin treatment with see below. - Patient education for prevention given - LEVOFLOXACIN 750 MG TABLET - KETOROLAC 60 MG/2 ML INTRAMUSCULAR SOLUTION for discomfort. - Discussed need to go to ER if developing fevers, chills, worsening symptoms including chest pain, worsening shortness of breath. Follow up as needed. Dc Smalls CNP XR CHEST 2V FRONTAL/LAT Observed: 05/12/2017 Status: F Source: ONYX 9:40 AM [facility] REPOSITORY * * *Final Report* * * DATE OF EXAM: May 12 2017 9:40AM WOX 5291 - XR CHEST 2V FRONTAL/LAT / PROCEDURE REASON: Cough * * * * Physician Interpretation * * * * EXAMINATION: CHEST RADIOGRAPH (2 VIEW FRONTAL and LATERAL) Clinical History: Cough M: XC2_4 Comparison: Comparison is made to prior chest dated 02/16/2017 RESULT: Lines, tubes, and devices: None. Lungs and pleura: Mild chronic interstitial lung changes with bibasilar fibrotic change stable. There is no focal consolidation or acute pleural process. There is no overt pulmonary edema. Cardiomediastinal silhouette: Normal cardiomediastinal silhouette. Other: The bony structures are intact. IMPRESSION: Stable chest. No acute cardiopulmonary process. Mixer Pigment: DIALLO Transcribe Date/Time: May 12 2017 9:44A Dictated by : ARI RUSSO MD This examination was interpreted and the report reviewed and electronically signed by: ARI RUSSO MD on May 12 2017 9:45AM EST [id number] Observed: 05/12/2017 Status: COMPLETED Source: ONYX 9:27 AM [facility] REPOSITORY HNO ID: [id number] Author: Adalgisa Pena (Rt) Alyssa Ng Service: (none) Author Type: Lathe Operator Contact Lens Type: Progress Notes Filed: 05/12/2017 9:33 AM Note Text: Radiology Service Progress Note PATIENT NAME: Katherin Suero DATE OF SERVICE: May 12, 2017 TIME: 9:27 AM PATIENT IDENTITY VERIFICATION COMPLETED USING TWO (2) METHODS: Patient confirmed name verbally and Date of . PATIENT GENDER DATA: Female. status: : No status: NO. PATIENT RELEVANT IMPLANT DATA REVIEWED: Not Applicable RADIOLOGY DEPARTMENT: General X-ray: Exam(s) Completed: Chest X-Ray PERIPHERAL IV DATA: Not applicable SIGNED BY: Adalgisa Ng RT May 12, 2017 9:27 AM ALBUMIN/CREAT RATIO Collected: 05/12/2017 Status: F Source: ONYX 9:21 AM [facility] REPOSITORY TYPE CODE TESTS RESULT OUT OF REFERENCE UNITS RANGE LAB UCRR 20-300 mg/dL 45.0 Creatinine,Ur ine,Ran LAB UALBR 0.0-23.0 mg/L <12.0 Albumin Urine Random LAB UALBCR 0-30 mg/g Not Albumin/Creat calculated Ratio Performed By: #### UACR #### [facility] [employer] [address] [place], [place] [address] Observed: 05/12/2017 Status: F Source: ONYX URINE CULTURE 9:21 AM [facility] REPOSITORY Sp. Request/Comment: - Specimen received in preservative Culture Result - 10,000 - <50,000 CFU/ml Normal urogenital rafiq Performed By: #### URCUL #### [facility] [employer] [address] [place], [place] [address] URINALYSIS Collected: 05/12/2017 Status: F Source: ONYX 9:20 AM [facility] REPOSITORY TYPE CODE TESTS RESULT OUT OF RANGE REFERENCE UNITS LAB UCOL Yellow Color Yellow LAB [facility] Clear Clarity Abnormal Cloudy Alert LAB UGLUC Negative mg/dL Glucose, Abnormal Urine >=500 Alert LAB UBIL Negative Bilirubin, Urine Negative LAB UKET Negative Ketones, Abnormal Urine Trace Alert LAB USPG 1.005-1.030 High Specific [place], Ur 1.031 LAB UHGB Negative Hemoglobin/Blood, Negative Ur LAB UPH 4.5-8.0 pH 6.0 LAB UPROT Negative mg/dL Protein, Urine Negative LAB UUROB Normal Urobilinogen Normal LAB UNITR Negative Nitrites Negative LAB ULKEST Negative Leukest Abnormal 2+ Alert LAB UCOM Comments SEE COMMENT Result Comment: Microscopic Examination Performed LAB UWBC 0-5 /HPF Abnormal WBC Alert >25 LAB URBC 0-3 /HPF RBC 0-3 LAB UEPI /HPF Epithelial Cells SEE COMMENT Result Comment: Few Squamous Epithelial Cells LAB UMCOM Urine SEE Bala Comment COMMENT Result Comment: N/A LAB UYEA 0 /HPF Abnormal Alert Yeast Few Result Comment: Budding Yeast Performed By: #### UA #### [facility] [place] [address] [place], [place] [address] MEET Observed: 05/11/2017 Status: COMPLETED Source: ONYX 12:00 AM [facility] REPOSITORY Telephone (FAMPWS) KATHERIN SUERO ([id number]) 1965 F CHT Date Time Provider Department [facility] During your visit today, we recorded the following information about you: Mukesh Mosquera RN 05/11/2017 11:45 AM Signed Patient calls in stating her urine, cough and shortness of breath is not any better from office visit on 05/04/17. She is wondering if you can work her in to your schedule in the next few days. Please advise. Mukesh Walsh MD 05/11/2017 5:11 PM Signed OK to arrange an appt MD Mignon Galeano MD 05/11/2017 5:20 PM Signed UA and culture ordered MD Cindy Galeano Ma 05/11/2017 5:23 PM Signed Pt wants an appt tiarra.States she will complete her xray and urine. Cindy Smalls CNP, CNP 05/12/2017 7:19 AM Signed Addended by: DC SMALLS CNP on: 05/12/2017 07:19 AM Modules accepted: Chad Smalls CNP, CNP 05/12/2017 7:20 AM Signed X-ray changed to stat. Can we have the patient come get the x-ray at 10 am like she said and just stop by the office after to be seen? Just have her check in early? Dc Smalls CNP Allergies As of Date: 05/11/2017 Noted Allergy Reaction MACROBID (NITROFURANTOIN MONOHYD/*11/07/2015 9 - Itching Comments: Hives and rash MRI DYE (CONTRAST DYE) 08/02/2009 11 - Vomiting Comments: constant vomiting, swell up, NEEDS premedication but still gets sick, not as bad FENTANYL 05/09/2013 5 - Intolerance Comments: Feels like throat is closing METFORMIN 08/20/2015 8 - GI Upset Comments: Has tried immediate release and XR formulation and unable to tolerate either SULFA (SULFONAMIDE ANTIBIOTICS) 05/09/2013 9 - Itching ct scan dye [Other] 08/02/2009 11 - Vomiting Comments: Vomiting, swelling of face: Needs premedication and gets sick, but not as bad Date Reviewed: 05/04/2017 Reviewed by: Magalie Mckeon Ma - Fully Assessed Reason for Visit: Appointment Request [Other] Reason For Visit History Recorded Primary Visit Diagnosis:Dysuria [R30.0] Other Visit Diagnosis:Cough [R05] Order(s):UA CHEMSTRIP ONLY [SQUA] Order #: [id number] FUTURE URINE CULTURE [SQURCUL] Order #: [id number] FUTURE XR CHEST 2V FRONTAL/LAT [[id number]] Order #: [id number] FUTURE Prescriptions as of 05/11/2017 Sig: EMPAGLIFLOZIN 10 MG TABLET Take 1 tablet by mouth once d* GABAPENTIN 800 MG TABLET TAKE 2 TABLETS BY MOUTH EVERY* LEVOFLOXACIN 750 MG TABLET Take 1 tablet by mouth once d* SITAGLIPTIN 100 MG TABLET Take 1 tablet by mouth once d* GUAIFENESIN 100 MG/5 ML ORAL * Take 10 mL by mouth three mariza* IBUPROFEN 800 MG TABLET Take 1 tablet by mouth every * COMPOUNDED PRESCRIPTION Adult diaper: Depends: Size:* BLOOD-GLUCOSE METER KIT Glucose Meter of Choice - Kit* BENZONATATE 100 MG CAPSULE Take 1 capsule by mouth three* PANTOPRAZOLE 40 MG TABLET,DEL* TAKE 1 TABLET BY MOUTH DAILY ATORVASTATIN 20 MG TABLET TAKE 1 TABLET BY MOUTH AT BED* CYCLOBENZAPRINE 5 MG TABLET TAKE 2 TABLETS BY MOUTH EVERY* BUDESONIDE 180 MCG/ACTUATION * Inhale 2 Puffs as instructed * GLIMEPIRIDE 4 MG TABLET TAKE 1 TABLET BY MOUTH DAILY ABATACEPT 125 MG/ML SUBCUTANE* Inject 125 mg subcutaneously * CLONAZEPAM 0.5 MG TABLET Take 1 tablet by mouth twice * LISINOPRIL 10 MG TABLET Take 1 tablet by mouth once d* KETOCONAZOLE 2 % TOPICAL CREAM Apply 1 application to affect* COMPOUNDED PRESCRIPTION Powerstep orthotics (L30.9* COMPOUNDED PRESCRIPTION Physical therapy ordered for * LEVOTHYROXINE 150 MCG TABLET Take 1 tablet by mouth daily * CHOLECALCIFEROL (VITAMIN D3) * Take 1 tablet by mouth once d* ZOFRAN ORAL Take by mouth. BLOOD SUGAR DIAGNOSTIC STRIPS Test blood sugar(s) 1- 2 time* BUSPAR ORAL Take 30 mg by mouth twice tyrell* ALBUTEROL SULFATE 2.5 MG/3 ML* Use 3 mL via nebulizer every * CPAP Initiate CPAP @ 14 cm of wate* LANCETS Test blood sugar(s) one times* LANCETS Test blood sugar(s) 1- 2 times* ALBUTEROL SULFATE HFA 90 MCG/* Inhale 2 Puffs as instructed * COMPOUNDED PRESCRIPTION Please provide patient with n* DULOXETINE 60 MG CAPSULE,SERG* Take 120 mg by mouth once tyrell* Problem List As Of Date 05/11/2017 Noted Resolved Shortness of breath [R06.02] 07/01/2015 Asthma with exacerbation [J45.901] 07/01/2015 Viral pneumonia, unspecified [J12.9] 07/01/2015 More... MITRAL VALVE DISORDER [I05.9] Tobacco use disorder [F17.200] 07/01/2015 Essential hypertension [I10] More... MIXED HYPERLIPIDEMIA [E78.2] More... COUGH [R05] INVALID FOR* INCONTINENCE W/O SENSORY AWARENESS [N39.42] INVALID FOR*07/01/2015 URGE AND STRESS MIXED INCONTINENCE [N39.46] INVALID FOR* Morbid obesity with BMI of 45.0-49.9, adult [E6*INVALID FOR*07/01/2015 Tobacco abuse [Z72.0] INVALID FOR* Hyperlipidemia [E78.5] INVALID FOR*04/10/2016 Fibromyalgia [M79.7] INVALID FOR* Hypothyroidism [E03.9] INVALID FOR*07/01/2015 Asthma with COPD (HCC) [J44.9] INVALID FOR*07/01/2015 RLL pneumonia [J18.1] INVALID FOR*04/10/2016 GERD (gastroesophageal reflux disease) [K21.9] INVALID FOR* H. 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*INVALID FOR* NIMESH (obstructive sleep apnea) [G47.33] INVALID FOR* Asthma [J45.909] INVALID FOR* Seronegative rheumatoid arthritis (HCC) [M06.00]INVALID FOR* Controlled substance agreement signed [Z79.899] INVALID FOR* Bladder spasms [N32.89] INVALID FOR* Uncontrolled type 2 diabetes mellitus without c*INVALID FOR* Recurrent UTI [N39.0] INVALID FOR* Long-term use of immunosuppressant medication [*INVALID FOR* Encounter Status:Closed by CINDY CARLIN MA on 05/11/17 PROGRESS Observed: 05/04/2017 Status: COMPLETED Source: ONYX 10:55 AM [facility] REPOSITORY O ID: [id number] Author: Mignon Walsh Service: (none) Author Type: Physician Type: Progress Notes Filed: 05/04/2017 11:22 AM Note Text: Chief Complaint Patient presents with: F/U 1 month HPI Katherin Suero is a 51 year old female who presents here today for 1 month follow up UTI. UTI: pt still feels like she has UTI. Gave a urine sample when she saw Dc Smalls NP last week and was told that the urine could not be processed or they could not get a good reading d/t contamination. Pt was not treated with any antibiotics. Patient has a history of chronic, recurrent UTIs. Has been admitted to [facility] or visit the ER for similar complaints numerous times in the past few months. Previously was under the care of infectious disease specialist in [place] until the provider left the area. Vaginal yeast infection still continues. Was treated last week with Diflucan. Has been dealing with a coughing, concerned she has the flu or pneumonia. She states she has pain to the left side from coughing so much, SOB, wheezing. Complains she is coughing up green/brown phlegm. Has had fevers at night, no fever at this time. Has been in bed since she was seen last week. Was unable to get the chest xray as she didn't feel well. Has been treated with prednisone tapers, Omnicef at office visit on 04/02/17. Pt states she is willing to get chest xray today. Pt was given Robitussin cough syrup but never picked it up, stated she was not aware anything was sent in. She stated could not afford the Tessalon Perles. DM: states her sugars have been good, reading this morning was 94. She is taking Glimepiride BID. Past medical history, appointments, medications, allergies reviewed. Previous Medical History PAST MEDICAL HISTORY Diagnosis Date - Asthma with exacerbation - Chronic back pain - Chronic bronchitis ([facility]) 06/[address] Ponce - Chronic gastritis egd 02/07/14 - Depression [facility] - Dyslipidemia elevated TG, low HDL - H. pylori infection 06/2013 - Hypothyroidism - Impaired fasting glucose 06/2013 - Leukocytosis - Mitral valve disorders(424.0) MILD PROLAPSE NO REGUGITATION - Neuropathy ([facility]) b/l feet - NIMESH (obstructive sleep apnea) - Osteoarthritis of both knees 08/2013 - Psoriatic arthritis ([facility]) Dr. Rebecca Burgess - Rheumatoid arthritis ([facility]) - RLL pneumonia ([facility]) 04/19/13 - Tobacco use disorder - Unspecified asthma(493.90) - Unspecified essential hypertension Essential hypertension - Viral pneumonia, unspecified Pneumonia Previous Surgical History PAST SURGICAL HISTORY Procedure Laterality Date - CHOLECYSTECTOMY 1995 lap - COLONOSCOP W/ OR W/O BRSH SPEC 02/07/2014 Colonoscopy - DOPPLER ECHO HEART,COMPLETE 09/02/05 EF= 65% - EGD W/O OR W/BRUSH/WASH 02/07/2014 EGD - GASTRIC BYPASS HX 1985 - LEFT HEART CATH,PERCUTANEOUS 12/02/05 NORMAL - LUMBAR SPINE FUSION COMBINED 1992 X6 Family History FAMILY HISTORY Problem Relation Age of Onset - Hypertension Mother - Cancer Father lung 70 - Stroke Maternal Grandfather 81 - Breast Cancer Maternal Aunt Patient Allergies ALLERGIES Allergen Reactions - Macrobid [Nitrofura* Itching Hives and rash - Mri Dye [Contrast D* Vomiting constant vomiting, swell up, NEEDS premedication but still gets sick, not as bad - Fentanyl Intolerance Feels like throat is closing - Metformin GI Upset Has tried immediate release and XR formulation and unable to tolerate either - Sulfa (Sulfonamide * Itching - Ct Scan Dye [Other] Vomiting Vomiting, swelling of face: Needs premedication and gets sick, but not as bad Current Medications Current Outpatient Prescriptions on File Prior to Visit: guaiFENesin (ROBITUSSIN) 100 mg/5 mL syrup Take 10 mL by mouth three times daily as needed. ibuprofen (MOTRIN) 800 mg tablet Take 1 tablet by mouth every 8 hours as needed for Pain. Take with food. COMPOUNDED PRESCRIPTION Adult diaper: Depends: Size: [id number]: R32: Urinary Incontinence. Blood-Glucose Meter monitoring kit Glucose Meter of Choice - Kit - Dx: Type 2 DM - Uncontrolled E11.65 benzonatate (TESSALON PERLE) 100 mg capsule Take 1 capsule by mouth three times daily as needed for Cough. pantoprazole DR (PROTONIX) 40 mg tablet TAKE 1 TABLET BY MOUTH DAILY atorvastatin (LIPITOR) 20 mg tablet TAKE 1 TABLET BY MOUTH AT BEDTIME cyclobenzaprine (FLEXERIL) 5 mg tablet TAKE 2 TABLETS BY MOUTH EVERY MORNING AND 1 TABLET IN THE AFTERNOON AND 2 TABLETS AT NIGHT budesonide (PULMICORT FLEXHALER) 180 mcg/actuation aepb Inhale 2 Puffs as instructed twice daily. gabapentin (NEURONTIN) 800 mg tablet TAKE 2 TABLETS BY MOUTH EVERY MORNING AND TAKE 1 AND 1/2 TABLETS IN THE AFTERNOON AND TAKE 1 TABLET AT BEDTIME glimepiride (AMARYL) 4 mg tablet TAKE 1 TABLET BY MOUTH DAILY abatacept (ORENCIA) 125 mg/mL syrg Inject 125 mg subcutaneously once each week. clonazePAM (KLONOPIN) 0.5 mg tablet Take 1 tablet by mouth twice daily. lisinopril (ZESTRIL, PRINIVIL) 10 mg tablet Take 1 tablet by mouth once daily. ketoconazole (NIZORAL) 2 % cream Apply 1 application to affected area once daily. COMPOUNDED PRESCRIPTION Powerstep orthotics(L30.9) Dermatitis (primary encounter diagnosis)(72.2) Plantar fasciitis, bilatera(E11.49) Other diabetic neurological complication associated with type 2 diabetes mellitus (HCC) COMPOUNDED PRESCRIPTION Physical therapy ordered for her for a home modification evaluation to evaluate need for lift chair or other DME that will assist patient in home and promote safety. levothyroxine (SYNTHROID) 150 mcg tablet Take 1 tablet by mouth daily before breakfast. Cholecalciferol, Vitamin D3, (VITAMIN D-3) 2,000 unit cap Take 1 tablet by mouth once daily. ONDANSETRON HCL (ZOFRAN ORAL) Take by mouth. blood sugar diagnostic (BLOOD GLUCOSE TEST) test strip Test blood sugar(s) 1-2 times daily and PRN. Dx: Type 2 DM - Controlled E11.9 Insulin: No BUSPIRONE HCL (BUSPAR ORAL) Take 30 mg by mouth twice daily. albuterol (PROVENTIL) 2.5 mg /3 mL (0.083 %) nebulizer solution Use 3 mL via nebulizer every 4 hours as needed for Wheezing/Shortness of Breath. Use over 5-15minutes. CPAP Initiate CPAP @ 14 cm of water with humidification. Mask (per patient preference) optional chin strap (if indicated) , filters, tubing, heated humidifier and lifetime supplies. Set EPR to 3. DX: NIMESH Lancets lancets Test blood sugar(s) one times daily. Dx: Type 2 DM - Controlled E11.9 Insulin: No Lancets lancets Test blood sugar(s) 1-2 times daily. Dx: Type 2 DM - Controlled E11.9 Insulin: No albuterol HFA (PROVENTIL HFA, VENTOLIN HFA) 90 mcg/actuation inhaler Inhale 2 Puffs as instructed every 4 hours as needed. COMPOUNDED PRESCRIPTION Please provide patient with new nebulizer machine and supplies.Diagnosis: Wheezing, dyspnea. DULoxetine (CYMBALTA) 60 mg capsule Take 120 mg by mouth once daily. No current facility-administered medications on file prior to visit. Social History Social History Marital status: Single Spouse name: Years of education: Number of children: 2 Occupational History Occupation Employer Comment [employer] Currently on Disab* Social History Main Topics Smoking status: Current Every Day Smoker Packs/day: 1.00 Years: 32.00 Types: Cigarettes Start date: 12/28/1984 Smokeless status: Never Used Alcohol use: No Drug use: No Sexual activity: Not Currently EXAM: BP 126/74 Pulse 74 Temp 36.4 ?C (97.5 ?F) (Tympanic) Resp 20 Wt (!) 142.9 kg (315 lb) LMP 01/27/2006 BMI 46.52 kg/m2 General Appearance: Well appearing, alert, in no acute distress, well-hydrated, well nourished., Morbidly obese. Lungs: Positive findings: wheezing . Heart: RRR without murmur, gallop, or rubs. No ectopy. Health Maintenance List DILATED RETINAL EXAM due on 12/18/2016 URINE ALBUMIN CREATININE RATIO due on 07/08/2017 HBA1C due on 10/25/2017 DIABETIC FOOT EXAM due on 11/12/2017 LDL due on 2017 MAMMOGRAM due on 03/31/2018 PAP EVERY 5 YEARS due on 07/21/2018 HPV EVERY 5 YEARS due on 07/21/2018 COLORECTAL CANCER SCREENING,SEE MODIFIER due on 02/08/2024 TETANUS due on 03/20/2025 ONE PNEUMOVAX PRIOR TO AGE 65 Completed INFLUENZA Completed Data reviewed Appointment on 04/27/2017 Hemoglobin A1C Value: 9.5(%)* Date: 04/27/2017 Estimated Average Glucose Value: 226(mg/dL) Date: 04/27/2017 Protein, Total Value: 7.1(g/dL) Date: 04/27/2017 Albumin Value: 3.8(g/dL)* Date: 04/27/2017 Calcium Value: 8.8(mg/dL) Date: 04/27/2017 Bilirubin, Total Value: 0.2(mg/dL) Date: 04/27/2017 Alkaline Phosphatase Value: 68(U/L) Date: 04/27/2017 AST Value: 11(U/L)* Date: 04/27/2017 Glucose Value: 295(mg/dL)* Date: 04/27/2017 BUN Value: 7(mg/dL) Date: 04/27/2017 Creatinine Value: 0.66(mg/dL) Date: 04/27/2017 Sodium Value: 139(mmol/L) Date: 04/27/2017 Potassium Value: 3.7(mmol/L) Date: 04/27/2017 Chloride Value: 99(mmol/L) Date: 04/27/2017 CO2 Value: 21(mmol/L)* Date: 04/27/2017 Anion Gap Value: 19(mmol/L)* Date: 04/27/2017 ALT Value: 11(U/L) Date: 04/27/2017 eGFR- Value: >60 Date: 04/27/2017 eGFR-All Other Races Value: >60(.) Date: 04/27/2017 Office Visit on 04/27/2017 Glucose, Urine Value: 2000(mg/dL) Date: 04/27/2017 Bilirubin, Urine Value: neg Date: 04/27/2017 Ketones, Urine Value: neg Date: 04/27/2017 Specific [place], Ur Value: 1.015 Date: 04/27/2017 Hemoglobin/Blood,Ur Value: neg Date: 04/27/2017 pH, Urine Value: 6.0 Date: 04/27/2017 Protein, Urine Value: trace(mg/dL) Date: 04/27/2017 Urobilinogen, Urine Value: normal(EU) Date: 04/27/2017 Nitrites Value: neg Date: 04/27/2017 Leukocytes Value: trace Date: 04/27/2017 Color/Appearance Value: dark(comment:) Date: 04/27/2017 Quality Check Value: Yes(yes/no) Date: 04/27/2017 Culture Value: Date: 04/27/2017 Value:10,000 - <50,000 CFU/ml Three or more organisms, no one type predominant, suggesting contamination during collection. Recollect if clinically indicated. Office Visit on 03/17/2017 Glucose, Urine Value: neg(mg/dL) Date: 03/17/2017 Bilirubin, Urine Value: neg Date: 03/17/2017 Ketones, Urine Value: neg Date: 03/17/2017 Specific [place], Ur Value: 1.030 Date: 03/17/2017 Hemoglobin/Blood,Ur Value: trace Date: 03/17/2017 pH, Urine Value: 6.0 Date: 03/17/2017 Protein, Urine Value: trace(mg/dL) Date: 03/17/2017 Urobilinogen, Urine Value: 0.2(EU) Date: 03/17/2017 Nitrites Value: pos Date: 03/17/2017 Leukocytes Value: moderate Date: 03/17/2017 Color/Appearance Date: 03/17/2017 Value: parrish, clots Quality Check Value: Yes(yes/no) Date: 03/17/2017 Specimen Request Date: 03/18/2017 Value: Specimen received in preservative Culture Value: * Date: 03/18/2017 Value:>=100,000 CFU/ml Escherichia coli ASSESSMENT/PLAN: 1. Cough - ICD9: 786.2, ICD10: R05 (primary diagnosis) Start levaquin 750 mg daily Start 3 days of Prednisone 40 mg daily 2. Tobacco abuse - ICD9: 305.1, ICD10: Z72.0 - Cessation encouraged. 3. Recurrent UTI - ICD9: 599.0, ICD10: N39.0 chronic Start Levaquin 750 mg Pt unable to provider urine sample 4. Vaginal yeast infection - ICD9: 112.1, ICD10: B37.3 No treatment 5. Uncontrolled type 2 diabetes mellitus without complication, without long-term current use of insulin (HCC) - ICD9: 250.02, ICD10: E11.65 poorly controlled - Continue current medications - Add sitagliptin phosphate (Januvia) 100 mg daily Follow up in 1 month. Will call with chest x ray results. Mignon Walsh MD The documentation for this note was completed by Magalie Mckeon Ma acting as scribe for Mignon Walsh MD. May 04, 2017 11:03 AM. Observed: 04/27/2017 Status: F Source: ONYX URINE CULTURE 3:05 PM [facility] REPOSITORY Culture Result - 10,000 - <50,000 CFU/ml Three or more organisms, no one type predominant, suggesting contamination during collection. Recollect if clinically indicated. Performed By: #### URCUL #### [facility] [employer] [address] [place], [place] [address] HEMOGLOBIN A1C Collected: 04/27/2017 Status: F Source: ONYX 2:59 PM [facility] REPOSITORY TYPE CODE TESTS RESULT OUT OF REFERENCE UNITS RANGE LAB HGBA1C 4.3-5.6 % High Hemoglobin A1c 9.5 LAB HBA0 mg/dL Est. Average Glucose 226 Result Comment: eAG: (Estimated average glucose) is a calculated value from HgbA1c and is public service representative of the average blood glucose level in the last 2-3 month period. Performed By: #### HBA1C, CMP #### [facility] [employer] [address] [place], [place] [address] COMP METABOLIC PANEL Collected: 04/27/2017 Status: F Source: ONYX 2:59 PM [facility] REPOSITORY TYPE CODE TESTS RESULT OUT OF REFERENCE UNITS RANGE LAB TP 6.3-8.0 g/dL Protein, Total 7.1 LAB ALB 3.9-4.9 g/dL Low Albumin 3.8 LAB CA 8.5-10.2 mg/dL Calcium, Total 8.8 LAB TBIL 0.2-1.3 mg/dL Bilirubin, Total 0.2 LAB ALKP 32-117 U/L Alkaline Phosphatase 68 LAB AST 13-35 U/L Low AST 11 LAB GLU 74-99 mg/dL Glucose High 295 Result Comment: The [place] [employer] (ADA) provides guidance for cutoff values for fasting glucose and random glucose. The ADA defines fasting as no caloric intake for at least 8 hours. Fas ting plasma glucose results between 100 to 125 mg/dL indicate increased risk for diabetes (prediabetes). Fasting plasma glucose results greater than or equal to 126 mg/dL meet the criteria for diagnosis of diabetes. In the absence of unequivocal hyperglycemia, results should be confirmed by repeat testing. In a patient with classic symptoms of hyperglycemia or hyperglycemic crisis, random plasma glucose results greater than or equal to 200 mg/dL meet the criteria for diagnosis of diabetes. Reference: Standards of Medical Care in Diabetes 2016, [place] [employer]. Diabetes Care. 2016.39(Suppl 1). LAB BUN 7-21 mg/dL BUN 7 LAB CRET 0.58-0.96 mg/dL Creatinine 0.66 LAB NA 136-144 mmol/L Sodium 139 LAB K 3.7-5.1 mmol/L Potassium 3.7 LAB CL 97-105 mmol/L Chloride 99 LAB CO2 22-30 mmol/L Low CO2 21 LAB AGAP 9-18 mmol/L Anion Gap High 19 LAB ALT 7-38 U/L ALT 11 LAB GFRAA eGFR- Amer. >60 LAB GFRNAA . eGFR-All Other Races >60 Result Comment: eGFR (Estimated GFR) Units of measure: mL/min/1.73 meters squared eGFR is derived from the reexpressed MDRD Study equation using the following parameters: serum creatinine, age, gender and race. The creatinine assay has been calibrated to be traceable to IDMS. An eGFR <60 mL/min/1.73m2 for >3 months is consistent with chronic kidney disease. Refer to KDOQI guidelines for clinical interpretation. In patients with unstable renal function, e.g. those with acute kidney injury, the eGFR may not accurately reflect actual GFR. Performed By: #### HBA1C, CMP #### [facility] [place] [address] [place], [place] [address] CNOV Observed: 04/27/2017 Status: COMPLETED Source: ONYX 2:20 PM [facility] REPOSITORY Office Visit (FAMPWS) KATHERIN SUERO ([id number]) 1965 F T Date Time Provider Department 04/27/17 2:20 PM [facility] During your visit today, we recorded the following information about you: Temperature Pulse Blood pressure Weight 97.3 degrees 115/minute 112/94 141.1 kg Dc Smalls CNP, [place]AN 04/27/2017 2:57 PM Signed Chief Complaint Patient presents with: UTI: burning - cough HPI Katherin Suero is a 51 year old female who presents here today for Above Complaints. Patient presents to the office with complaints of dysuria. Patient has a history of chronic, recurrent UTIs. Has been admitted to [facility] or visit the ER for similar complaints numerous times in the past few months. Previously was under the care of infectious disease specialist in [place] until the provider left the area. Now she is unable to drive long distances to see other specialist. She presents today with complaints of a vaginal yeast infection. Symptoms of vaginal pruritis is present. Also complaining of dysuria, frequency, and urgency. Has been treated within the past month with antibiotics for this finding. Also has had a long standing urinary incontinence, which she uses adult diapers, requesting more. Does not appear to see blood in her urine. Today, her urine trace amount of leuks and greater than 2000 glucose present. Continues to have cough present intermittently for the past month. Has been treated with prednisone tapers, Omnicef recently. Also has complaints of a cough. Has been coughing up green, yellow mucus. States that she gets a low grade fever at nighttime, usually 99-100 F. She states that she feels fatigued. No fever at this time. States that she feels short of breath with some wheezing. Has not used any OTC medications for this complaint. Requesting prednisone increase for her symptoms, as she is currently on 5 mg of prednisone daily. Has not checked her BG due to breaking her glucose monitor. She is requesting a new one. Past medical history, appointments, medications, allergies reviewed. Previous Medical History PAST MEDICAL HISTORY Diagnosis Date - Asthma with exacerbation - Chronic back pain - Chronic bronchitis ([facility]) 06/[address] Ponce - Chronic gastritis egd 02/07/14 - Depression [facility] - Dyslipidemia elevated TG, low HDL - H. pylori infection 06/2013 - Hypothyroidism - Impaired fasting glucose 06/2013 - Leukocytosis - Mitral valve disorders(424.0) MILD PROLAPSE NO REGUGITATION - Neuropathy ([facility]) b/l feet - NIMESH (obstructive sleep apnea) - Osteoarthritis of both knees 08/2013 - Psoriatic arthritis ([facility]) Dr. Rebecca Burgess - Rheumatoid arthritis ([facility]) - RLL pneumonia [facility] [facility]) 04/19/13 - Tobacco use disorder - Unspecified asthma(493.90) - Unspecified essential hypertension Essential hypertension - Viral pneumonia, unspecified Pneumonia Previous Surgical History PAST SURGICAL HISTORY Procedure Laterality Date - CHOLECYSTECTOMY 1995 lap - COLONOSCOP W/ OR W/O BRSH SPEC 02/07/2014 Colonoscopy - DOPPLER ECHO HEART,COMPLETE 09/02/05 EF= 65% - EGD W/O OR W/BRUSH/WASH 02/07/2014 EGD - GASTRIC BYPASS HX 1985 - LEFT HEART CATH,PERCUTANEOUS 12/02/05 NORMAL - LUMBAR SPINE FUSION COMBINED 1992 X6 Family History FAMILY HISTORY Problem Relation Age of Onset - Hypertension Mother - Cancer Father lung 70 - Stroke Maternal Grandfather 81 - Breast Cancer Maternal Aunt Patient Allergies ALLERGIES Allergen Reactions - Macrobid [Nitrofura* Itching Hives and rash - Mri Dye [Contrast D* Vomiting constant vomiting, swell up, NEEDS premedication but still gets sick, not as bad - Fentanyl Intolerance Feels like throat is closing - Metformin GI Upset Has tried immediate release and XR formulation and unable to tolerate either - Sulfa (Sulfonamide * Itching - Ct Scan Dye [Other] Vomiting Vomiting, swelling of face: Needs premedication and gets sick, but not as bad Current Medications Current Outpatient Prescriptions on File Prior to Visit: pantoprazole DR (PROTONIX) 40 mg tablet TAKE 1 TABLET BY MOUTH DAILY atorvastatin (LIPITOR) 20 mg tablet TAKE 1 TABLET BY MOUTH AT BEDTIME cyclobenzaprine (FLEXERIL) 5 mg tablet TAKE 2 TABLETS BY MOUTH EVERY MORNING AND 1 TABLET IN THE AFTERNOON AND 2 TABLETS AT NIGHT ibuprofen (MOTRIN) 800 mg tablet Take 1 tablet by mouth every 8 hours as needed for Pain. Take with food. budesonide (PULMICORT FLEXHALER) 180 mcg/actuation aepb Inhale 2 Puffs as instructed twice daily. gabapentin (NEURONTIN) 800 mg tablet TAKE 2 TABLETS BY MOUTH EVERY MORNING AND TAKE 1 ANDamp; 1/2 TABLETS IN THE AFTERNOON AND TAKE 1 TABLET AT BEDTIME glimepiride (AMARYL) 4 mg tablet TAKE 1 TABLET BY MOUTH DAILY abatacept (ORENCIA) 125 mg/mL syrg Inject 125 mg subcutaneously once each week. clonazePAM (KLONOPIN) 0.5 mg tablet Take 1 tablet by mouth twice daily. lisinopril (ZESTRIL, PRINIVIL) 10 mg tablet Take 1 tablet by mouth once daily. ketoconazole (NIZORAL) 2 % cream Apply 1 application to affected area once daily. COMPOUNDED PRESCRIPTION Powerstep orthotics(L30.9) Dermatitis (primary encounter diagnosis)(72.2) Plantar fasciitis, bilatera(E11.49) Other diabetic neurological complication associated with type 2 diabetes mellitus (HCC) COMPOUNDED PRESCRIPTION Physical therapy ordered for her for a ANDquot;home modification evaluationANDquot; to evaluate need for lift chair or other DME that will assist patient in home and promote safety. levothyroxine (SYNTHROID) 150 mcg tablet Take 1 tablet by mouth daily before breakfast. Cholecalciferol, Vitamin D3, (VITAMIN D-3) 2,000 unit cap Take 1 tablet by mouth once daily. ONDANSETRON HCL (ZOFRAN ORAL) Take by mouth. blood sugar diagnostic (BLOOD GLUCOSE TEST) test strip Test blood sugar(s) 1-2 times daily and PRN. Dx: Type 2 DM - Controlled E11.9 Insulin: No BUSPIRONE HCL (BUSPAR ORAL) Take 30 mg by mouth twice daily. albuterol (PROVENTIL) 2.5 mg /3 mL (0.083 %) nebulizer solution Use 3 mL via nebulizer every 4 hours as needed for Wheezing/Shortness of Breath. Use over 5-15minutes. CPAP Initiate CPAP @ 14 cm of water with humidification. Mask (per patient preference) optional chin strap (if indicated) , filters, tubing, heated humidifier and lifetime supplies. Set EPR to 3. DX: NIMESH Blood-Glucose Meter monitoring kit Glucose Meter of Choice - Kit - Dx: Type 2 DM - Controlled E11.9 Lancets lancets Test blood sugar(s) one times daily. Dx: Type 2 DM - Controlled E11.9 Insulin: No Lancets lancets Test blood sugar(s) 1-2 times daily. Dx: Type 2 DM - Controlled E11.9 Insulin: No albuterol HFA (PROVENTIL HFA, VENTOLIN HFA) 90 mcg/actuation inhaler Inhale 2 Puffs as instructed every 4 hours as needed. COMPOUNDED PRESCRIPTION Please provide patient with new nebulizer machine and supplies.Diagnosis: Wheezing, dyspnea. DULoxetine (CYMBALTA) 60 mg capsule Take 120 mg by mouth once daily. predniSONE (DELTASONE) 20 mg tablet Take 1 tablet by mouth once daily for 5 days. No current facility-administered medications on file prior to visit. Social History Social History Marital status: Single Spouse name: Years of education: Number of children: 2 Occupational History Occupation Employer Comment [employer] Currently on Disab* Social History Main Topics Smoking status: Current Every Day Smoker Packs/day: 1.00 Years: 32.00 Types: Cigarettes Start date: 12/28/1984 Smokeless status: Never Used Alcohol use: No Drug use: No Sexual activity: Not Currently REVIEW OF SYSTEMS: as above ? Reviewed relevant PMHx, PSHx, Social Hx, current medications and allergies. EXAM: BP 112/94 Pulse 115 Temp 36.3 ?C (97.3 ?F) (Tympanic) Wt (!) 141.1 kg (311 lb) LMP 01/27/2006 SpO2 98% BMI 45.93 kg/m2 General Appearance: Well appearing, alert, in no acute distress, well-hydrated, well nourished., Morbidly obese. Head: Normocephalic, no masses, lesions, tenderness or abnormalities. Eyes: Anicteric sclera. Pupils are equally round and reactive to light. Extraocular movements are intact. . Ears: External ears normal, left canal has a small scratch present in the canal. Nose/Sinuses: Nares normal, septum midline, mucosa normal, no drainage or sinus tenderness. Oropharynx: Lips, mucosa, and tongue normal, teeth and gums normal, oropharynx normal. Back: No CVA tenderness. Lungs: Posterior lung batista have slight expiratory wheeze noted throughout. No rhonchi or crackles. Heart: RRR without murmur, gallop, or rubs. No ectopy. Abdomen: Normal abdominal exam, Abdomen soft, non-tender. Bowel sounds normal. No masses, organomegaly. Health Maintenance List DILATED RETINAL EXAM due on 12/18/2016 HBA1C due on 06/02/2017 URINE ALBUMIN CREATININE RATIO due on 07/08/2017 DIABETIC FOOT EXAM due on 11/12/2017 LDL due on 2017 MAMMOGRAM due on 03/31/2018 PAP EVERY 5 YEARS due on 07/21/2018 HPV EVERY 5 YEARS due on 07/21/2018 COLORECTAL CANCER SCREENING,SEE MODIFIER due on 02/08/2024 TETANUS due on 03/20/2025 ONE PNEUMOVAX PRIOR TO AGE 65 Completed INFLUENZA Completed Data reviewed Component Latest Ref Rng ANDamp; Units 2016 Protein, Total 6.3 - 8.0 g/dL 6.8 Albumin 3.9 - 4.9 g/dL 3.8 (L) Calcium 8.5 - 10.2 mg/dL 9.3 Bilirubin, Total 0.2 - 1.3 mg/dL 0.2 Alkaline Phosphatase 32 - 117 U/L 71 AST 13 - 35 U/L 11 (L) Glucose 74 - 99 mg/dL 189 (H) BUN 7 - 21 mg/dL 8 Creatinine 0.58 - 0.96 mg/dL 0.59 Sodium 136 - 144 mmol/L 139 Potassium 3.7 - 5.1 mmol/L 3.8 Chloride 97 - 105 mmol/L 95 (L) CO2 22 - 30 mmol/L 22 Anion Gap 9 - 18 mmol/L 22 (H) ALT 7 - 38 U/L 9 eGFR- ANDgt;60 eGFR-All Other Races . ANDgt;60 Triglyceride 30 - 149 mg/dL 188 (H) Cholesterol, Total 100 - 199 mg/dL 150 HDL Cholesterol ANDgt;55 mg/dL 27 (L) VLDL Cholesterol 6 - 40 mg/dL 38 LDL Cholesterol 60 - 129 mg/dL 85 Fasting Time hrs 12 TC:HDL Ratio 1.00 - 5.00 5.56 (H) LDL:HDL Ratio 0.50 - 3.55 3.15 Non HDL Cholesterol 90 - 159 mg/dL 123 Hemoglobin A1C 4.3 - 5.6 % 9.9 (H) Estimated Average Glucose mg/dL 237 TSH 0.400 - 5.500 uU/mL 0.736 Component Latest Ref Rng ANDamp; Units 04/27/2017 Glucose, Urine Neg mg/dL 2000 Bilirubin, Urine Neg neg Ketones, Urine Neg neg Specific [place], Ur 1.005 - 1.030 1.015 Hemoglobin/Blood,Ur Neg neg pH, Urine 4.5 - 8.0 6.0 Protein, Urine Neg mg/dL trace Urobilinogen, Urine Normal (ANDlt;1.1) EU normal Nitrites Neg neg Leukocytes Neg trace Color/Appearance comment: dark Quality Check yes/no Yes ASSESSMENT/PLAN: 1. Recurrent UTI - ICD9: 599.0, ICD10: N39.0 (primary diagnosis) - Unclear if UTI is ongoing. Had recent treatment for UTI. Will send culture, treat as indicated. - UA positive for trace aure esterase, 2000 glucose - Send urine for culture - UA DIP B/O - URINE CULTURE 2. Vaginal yeast infection - ICD9: 112.1, ICD10: B37.3 - FLUCONAZOLE 150 MG TABLET 3. Cough - ICD9: 786.2, ICD10: R05 - Cough has been intermittent for an extended time period, has been on Omnicef, Levaquin in the past month. Will get imaging prior to antibiotic treatment. - BENZONATATE 100 MG CAPSULE - XR CHEST 2V FRONTAL/LAT 4. Pain - ICD9: 780.96, ICD10: R52 - Chronic lower back pain. - IBUPROFEN 800 MG TABLET 5. Urinary incontinence, unspecified type - ICD9: 788.30, ICD10: R32 - COMPOUNDED PRESCRIPTION for adult diapers. 6. Uncontrolled type 2 diabetes mellitus without complication, without long-term current use of insulin (HCC) - ICD9: 250.02, ICD10: E11.65 - Encouraged patient to get previously placed Hgb A1c completed today. - BLOOD-GLUCOSE METER KIT Had a lengthy discussion with patient on the importance of improved diabetic control. Her last Hgb A1c was 9.9, has been on numerous prednisone tapers for various ailments. Given that her urine shows glucose greater than 2000 and her last Hgb A1c was 9.9, I declined to give her more prednisone. I did direct her to go to the lab today and get her labs completed, which were previously placed. Get labs and x-ray today. Will notify of results of labs, urine culture and chest x-ray. Advised ER if symptoms worsening in the form of persistent fevers, worsening shortness of breath, chest pain. Dc Smalls, YOAN Referring Provider: SELF [[id number]] Allergies As of Date: 04/27/2017 Noted Allergy Reaction MACROBID (NITROFURANTOIN MONOHYD/*11/07/2015 9 - Itching Comments: Hives and rash MRI DYE (CONTRAST DYE) 08/02/2009 11 - Vomiting Comments: constant vomiting, swell up, NEEDS premedication but still gets sick, not as bad FENTANYL 05/09/2013 5 - Intolerance Comments: Feels like throat is closing METFORMIN 08/20/2015 8 - GI Upset Comments: Has tried immediate release and XR formulation and unable to tolerate either SULFA (SULFONAMIDE ANTIBIOTICS) 05/09/2013 9 - Itching ct scan dye [Other] 08/02/2009 11 - Vomiting Comments: Vomiting, swelling of face: Needs premedication and gets sick, but not as bad Date Reviewed: 04/27/2017 Reviewed by: Jackie Manley Job Estimator - Fully Assessed Reason for Visit: UTI [116] Cmt: burning - cough Primary Visit Diagnosis:Recurrent UTI [N39.0] Other Visit Diagnoses:Vaginal yeast infection [B37.3] Cough [R05] Pain [R52] Urinary incontinence, unspecified type [R32] Uncontrolled type 2 diabetes mellitus without complication, without long-term current use of insulin (HCC) [E11.65] Order(s):UA DIP B/O [[id number]] Order #: [id number] URINE CULTURE [SQURCUL] Order #: [id number] fluconazole (DIFLUCAN) 150 mg tabletTake 1 tablet by mouth one time only for 1 dose. Repeat in 3 days as needed.Disp: 2 tabletRfl: 0 ibuprofen (MOTRIN) 800 mg tabletTake 1 tablet by mouth every 8 hours as needed for Pain. Take with food.Disp: 60 tabletRfl: 2 COMPOUNDED PRESCRIPTIONAdult diaper: Depends: Size: X-Large ICD-10: R32: Urinary Incontinence.Disp: 14 EachRfl: 5 Blood-Glucose Meter monitoring kitGlucose Meter of Choice - Kit - Dx: Type 2 DM - Uncontrolled E11.65Disp: 1 EachRfl: 0 benzonatate (TESSALON PERLE) 100 mg capsuleTake 1 capsule by mouth three times daily as needed for Cough.Disp: 40 capsuleRfl: 0 XR CHEST 2V FRONTAL/LAT [[id number]] Order #: [id number] FUTURE Prescriptions as of 04/27/2017 Sig: IBUPROFEN 800 MG TABLET Take 1 tablet by mouth every * PANTOPRAZOLE 40 MG TABLET,DEL* TAKE 1 TABLET BY MOUTH DAILY ATORVASTATIN 20 MG TABLET TAKE 1 TABLET BY MOUTH AT BED* CYCLOBENZAPRINE 5 MG TABLET TAKE 2 TABLETS BY MOUTH EVERY* BUDESONIDE 180 MCG/ACTUATION * Inhale 2 Puffs as instructed * GABAPENTIN 800 MG TABLET TAKE 2 TABLETS BY MOUTH EVERY* GLIMEPIRIDE 4 MG TABLET TAKE 1 TABLET BY MOUTH DAILY ABATACEPT 125 MG/ML SUBCUTANE* Inject 125 mg subcutaneously * CLONAZEPAM 0.5 MG TABLET Take 1 tablet by mouth twice * LISINOPRIL 10 MG TABLET Take 1 tablet by mouth once d* KETOCONAZOLE 2 % TOPICAL CREAM Apply 1 application to affect* COMPOUNDED PRESCRIPTION Powerstep orthotics (L30.9* COMPOUNDED PRESCRIPTION Physical therapy ordered for * LEVOTHYROXINE 150 MCG TABLET Take 1 tablet by mouth daily * CHOLECALCIFEROL (VITAMIN D3) * Take 1 tablet by mouth once d* ZOFRAN ORAL Take by mouth. BLOOD SUGAR DIAGNOSTIC STRIPS Test blood sugar(s) 1- 2 time* BUSPAR ORAL Take 30 mg by mouth twice tyrell* ALBUTEROL SULFATE 2.5 MG/3 ML* Use 3 mL via nebulizer every * CPAP Initiate CPAP @ 14 cm of wate* LANCETS Test blood sugar(s) one times* LANCETS Test blood sugar(s) 1- 2 times* ALBUTEROL SULFATE HFA 90 MCG/* Inhale 2 Puffs as instructed * COMPOUNDED PRESCRIPTION Please provide patient with n* DULOXETINE 60 MG CAPSULE,SERG* Take 120 mg by mouth once tyrell* FLUCONAZOLE 150 MG TABLET Take 1 tablet by mouth one ti* COMPOUNDED PRESCRIPTION Adult diaper: Depends: Size:* BLOOD-GLUCOSE METER KIT Glucose Meter of Choice - Kit* BENZONATATE 100 MG CAPSULE Take 1 capsule by mouth three* Problem List As Of Date 04/27/2017 Noted Resolved Shortness of breath [R06.02] 07/01/2015 Asthma with exacerbation [J45.901] 07/01/2015 Viral pneumonia, unspecified [J12.9] 07/01/2015 More... MITRAL VALVE DISORDER [I05.9] Tobacco use disorder [F17.200] 07/01/2015 Essential hypertension [I10] More... MIXED HYPERLIPIDEMIA [E78.2] More... COUGH [R05] INVALID FOR* INCONTINENCE W/O SENSORY AWARENESS [N39.42] INVALID FOR*07/01/2015 URGE AND STRESS MIXED INCONTINENCE [N39.46] INVALID FOR* Morbid obesity with BMI of 45.0-49.9, adult [E6*INVALID FOR*07/01/2015 Tobacco abuse [Z72.0] INVALID FOR* Hyperlipidemia [E78.5] INVALID FOR*04/10/2016 Fibromyalgia [M79.7] INVALID FOR* Hypothyroidism [E03.9] INVALID FOR*07/01/2015 Asthma with COPD (HCC) [J44.9] INVALID FOR*07/01/2015 RLL pneumonia [J18.1] INVALID FOR*04/10/2016 GERD (gastroesophageal reflux disease) [K21.9] INVALID FOR* H. 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*INVALID FOR* NIMESH (obstructive sleep apnea) [G47.33] INVALID FOR* Asthma [J45.909] INVALID FOR* Seronegative rheumatoid arthritis (HCC) [M06.00]INVALID FOR* Controlled substance agreement signed [Z79.899] INVALID FOR* Bladder spasms [N32.89] INVALID FOR* Uncontrolled type 2 diabetes mellitus without c*INVALID FOR* Recurrent UTI [N39.0] INVALID FOR* Long-term use of immunosuppressant medication [*INVALID FOR* Prescriptions ordered this encounter Disp Refills Start End FLUCONAZOLE 150 MG TABLET 2 ta* 0 04/27/2017 04/27/2017 Route: ORAL Sig: Take 1 tablet by mouth one time only for 1 dose. Repeat in 3 days as needed. IBUPROFEN 800 MG TABLET 60 t* 2 04/27/2017 Route: ORAL Sig: Take 1 tablet by mouth every 8 hours as needed for Pain. Take with food. COMPOUNDED PRESCRIPTION 14 E* 5 04/27/2017 Class: Print RX Sig: Adult diaper: Depends: Size: X-Large ICD-10: R32: Urinary Incontinence. BLOOD-GLUCOSE METER KIT 1 Ea* 0 04/27/2017 Sig: Glucose Meter of Choice - Kit - Dx: Type 2 DM - Uncontrolled E11.65 BENZONATATE 100 MG CAPSULE 40 c* 0 04/27/2017 Route: ORAL Sig: Take 1 capsule by mouth three times daily as needed for Cough. Medications Discontinued During This Encounter predniSONE (DELTASONE) 5 mg tablet 40 t* 0 03/03/2017 04/27/2017 Sig: Take 15mg/day x5 days, 10mg/day x5 days, then 5mg/day thereafter Disc: Course of therapy completed predniSONE (DELTASONE) 5 mg tablet 60 t* 1 03/17/2017 04/27/2017 Route: ORAL Sig: Take 2 tablets by mouth once daily. Disc: Course of therapy completed predniSONE (DELTASONE) 20 mg tablet 5 ta* 0 04/02/2017 04/27/2017 Route: ORAL Sig: Take 1 tablet by mouth once daily for 5 days. Disc: Course of therapy completed Blood-Glucose Meter monitoring kit 1 Ea* 0 08/20/2015 04/27/2017 Cmt: [facility] Sig: Glucose Meter of Choice - Kit - Dx: Type 2 DM - Controlled E11.9 Disc: Reason for discontinue is not on file. ibuprofen (MOTRIN) 800 mg tablet 60 t* 2 03/17/2017 04/27/2017 Route: ORAL Sig: Take 1 tablet by mouth every 8 hours as needed for Pain. Take with food. Disc: Reason for discontinue is not on file. Disposition: Return if symptoms worsen or fail to improve. Follow-up and Disposition History Recorded Encounter Status:Closed by DC SMALLS CNP on 04/27/17 PROGRESS Observed: 04/27/2017 Status: COMPLETED Source: ONYX 2:17 PM [facility] REPOSITORY HNO ID: [id number] Author: Dc (Yoan) YOAN Smalls Service: (none) Author Type: Nurse Practitioner Type: Progress Notes Filed: 04/27/2017 2:57 PM Note Text: Chief Complaint Patient presents with: UTI: burning - cough HPI Katherin Suero is a 51 year old female who presents here today for Above Complaints. Patient presents to the office with complaints of dysuria. Patient has a history of chronic, recurrent UTIs. Has been admitted to [facility] or visit the ER for similar complaints numerous times in the past few months. Previously was under the care of infectious disease specialist in [place] until the provider left the area. Now she is unable to drive long distances to see other specialist. She presents today with complaints of a vaginal yeast infection. Symptoms of vaginal pruritis is present. Also complaining of dysuria, frequency, and urgency. Has been treated within the past month with antibiotics for this finding. Also has had a long standing urinary incontinence, which she uses adult diapers, requesting more. Does not appear to see blood in her urine. Today, her urine trace amount of leuks and greater than 2000 glucose present. Continues to have cough present intermittently for the past month. Has been treated with prednisone tapers, Omnicef recently. Also has complaints of a cough. Has been coughing up green, yellow mucus. States that she gets a low grade fever at nighttime, usually 99-100 F. She states that she feels fatigued. No fever at this time. States that she feels short of breath with some wheezing. Has not used any OTC medications for this complaint. Requesting prednisone increase for her symptoms, as she is currently on 5 mg of prednisone daily. Has not checked her BG due to breaking her glucose monitor. She is requesting a new one. Past medical history, appointments, medications, allergies reviewed. Previous Medical History PAST MEDICAL HISTORY Diagnosis Date - Asthma with exacerbation - Chronic back pain - Chronic bronchitis (HCC) 06/[address] Ponce - Chronic gastritis egd 02/07/14 - Depression Dr. [facility] - Dyslipidemia elevated TG, low HDL - H. pylori infection 06/2013 - Hypothyroidism - Impaired fasting glucose 06/2013 - Leukocytosis - Mitral valve disorders(424.0) MILD PROLAPSE NO REGUGITATION - Neuropathy ([facility]) b/l feet - NIMESH (obstructive sleep apnea) - Osteoarthritis of both knees 08/2013 - Psoriatic arthritis ([facility]) Dr. Rebecca Burgess - Rheumatoid arthritis ([facility]) - RLL pneumonia ([facility]) 04/19/13 - Tobacco use disorder - Unspecified asthma(493.90) - Unspecified essential hypertension Essential hypertension - Viral pneumonia, unspecified Pneumonia Previous Surgical History PAST SURGICAL HISTORY Procedure Laterality Date - CHOLECYSTECTOMY 1995 lap - COLONOSCOP W/ OR W/O BRSH SPEC 02/07/2014 Colonoscopy - DOPPLER ECHO HEART,COMPLETE 09/02/05 EF= 65% - EGD W/O OR W/BRUSH/WASH 02/07/2014 EGD - GASTRIC BYPASS HX 1985 - LEFT HEART CATH,PERCUTANEOUS 12/02/05 NORMAL - LUMBAR SPINE FUSION COMBINED 1992 X6 Family History FAMILY HISTORY Problem Relation Age of Onset - Hypertension Mother - Cancer Father lung 70 - Stroke Maternal Grandfather 81 - Breast Cancer Maternal Aunt Patient Allergies ALLERGIES Allergen Reactions - Macrobid [Nitrofura* Itching Hives and rash - Mri Dye [Contrast D* Vomiting constant vomiting, swell up, NEEDS premedication but still gets sick, not as bad - Fentanyl Intolerance Feels like throat is closing - Metformin GI Upset Has tried immediate release and XR formulation and unable to tolerate either - Sulfa (Sulfonamide * Itching - Ct Scan Dye [Other] Vomiting Vomiting, swelling of face: Needs premedication and gets sick, but not as bad Current Medications Current Outpatient Prescriptions on File Prior to Visit: pantoprazole DR (PROTONIX) 40 mg tablet TAKE 1 TABLET BY MOUTH DAILY atorvastatin (LIPITOR) 20 mg tablet TAKE 1 TABLET BY MOUTH AT BEDTIME cyclobenzaprine (FLEXERIL) 5 mg tablet TAKE 2 TABLETS BY MOUTH EVERY MORNING AND 1 TABLET IN THE AFTERNOON AND 2 TABLETS AT NIGHT ibuprofen (MOTRIN) 800 mg tablet Take 1 tablet by mouth every 8 hours as needed for Pain. Take with food. budesonide (PULMICORT FLEXHALER) 180 mcg/actuation aepb Inhale 2 Puffs as instructed twice daily. gabapentin (NEURONTIN) 800 mg tablet TAKE 2 TABLETS BY MOUTH EVERY MORNING AND TAKE 1 AND 1/2 TABLETS IN THE AFTERNOON AND TAKE 1 TABLET AT BEDTIME glimepiride (AMARYL) 4 mg tablet TAKE 1 TABLET BY MOUTH DAILY abatacept (ORENCIA) 125 mg/mL syrg Inject 125 mg subcutaneously once each week. clonazePAM (KLONOPIN) 0.5 mg tablet Take 1 tablet by mouth twice daily. lisinopril (ZESTRIL, PRINIVIL) 10 mg tablet Take 1 tablet by mouth once daily. ketoconazole (NIZORAL) 2 % cream Apply 1 application to affected area once daily. COMPOUNDED PRESCRIPTION Powerstep orthotics(L30.9) Dermatitis (primary encounter diagnosis)(72.2) Plantar fasciitis, bilatera(E11.49) Other diabetic neurological complication associated with type 2 diabetes mellitus (HCC) COMPOUNDED PRESCRIPTION Physical therapy ordered for her for a home modification evaluation to evaluate need for lift chair or other DME that will assist patient in home and promote safety. levothyroxine (SYNTHROID) 150 mcg tablet Take 1 tablet by mouth daily before breakfast. Cholecalciferol, Vitamin D3, (VITAMIN D-3) 2,000 unit cap Take 1 tablet by mouth once daily. ONDANSETRON HCL (ZOFRAN ORAL) Take by mouth. blood sugar diagnostic (BLOOD GLUCOSE TEST) test strip Test blood sugar(s) 1-2 times daily and PRN. Dx: Type 2 DM - Controlled E11.9 Insulin: No BUSPIRONE HCL (BUSPAR ORAL) Take 30 mg by mouth twice daily. albuterol (PROVENTIL) 2.5 mg /3 mL (0.083 %) nebulizer solution Use 3 mL via nebulizer every 4 hours as needed for Wheezing/Shortness of Breath. Use over 5-15minutes. CPAP Initiate CPAP @ 14 cm of water with humidification. Mask (per patient preference) optional chin strap (if indicated) , filters, tubing, heated humidifier and lifetime supplies. Set EPR to 3. DX: NIMESH Blood-Glucose Meter monitoring kit Glucose Meter of Choice - Kit - Dx: Type 2 DM - Controlled E11.9 Lancets lancets Test blood sugar(s) one times daily. Dx: Type 2 DM - Controlled E11.9 Insulin: No Lancets lancets Test blood sugar(s) 1-2 times daily. Dx: Type 2 DM - Controlled E11.9 Insulin: No albuterol HFA (PROVENTIL HFA, VENTOLIN HFA) 90 mcg/actuation inhaler Inhale 2 Puffs as instructed every 4 hours as needed. COMPOUNDED PRESCRIPTION Please provide patient with new nebulizer machine and supplies.Diagnosis: Wheezing, dyspnea. DULoxetine (CYMBALTA) 60 mg capsule Take 120 mg by mouth once daily. predniSONE (DELTASONE) 20 mg tablet Take 1 tablet by mouth once daily for 5 days. No current facility-administered medications on file prior to visit. Social History Social History Marital status: Single Spouse name: Years of education: Number of children: 2 Occupational History Occupation Employer Comment [employer] Currently on Disab* Social History Main Topics Smoking status: Current Every Day Smoker Packs/day: 1.00 Years: 32.00 Types: Cigarettes Start date: 12/28/1984 Smokeless status: Never Used Alcohol use: No Drug use: No Sexual activity: Not Currently REVIEW OF SYSTEMS: as above ? Reviewed relevant PMHx, PSHx, Social Hx, current medications and allergies. EXAM: BP 112/94 Pulse 115 Temp 36.3 ?C (97.3 ?F) (Tympanic) Wt (!) 141.1 kg (311 lb) LMP 01/27/2006 SpO2 98% BMI 45.93 kg/m2 General Appearance: Well appearing, alert, in no acute distress, well-hydrated, well nourished., Morbidly obese. Head: Normocephalic, no masses, lesions, tenderness or abnormalities. Eyes: Anicteric sclera. Pupils are equally round and reactive to light. Extraocular movements are intact. . Ears: External ears normal, left canal has a small scratch present in the canal. Nose/Sinuses: Nares normal, septum midline, mucosa normal, no drainage or sinus tenderness. Oropharynx: Lips, mucosa, and tongue normal, teeth and gums normal, oropharynx normal. Back: No CVA tenderness. Lungs: Posterior lung batista have slight expiratory wheeze noted throughout. No rhonchi or crackles. Heart: RRR without murmur, gallop, or rubs. No ectopy. Abdomen: Normal abdominal exam, Abdomen soft, non-tender. Bowel sounds normal. No masses, organomegaly. Health Maintenance List DILATED RETINAL EXAM due on 12/18/2016 HBA1C due on 06/02/2017 URINE ALBUMIN CREATININE RATIO due on 07/08/2017 DIABETIC FOOT EXAM due on 11/12/2017 LDL due on 2017 MAMMOGRAM due on 03/31/2018 PAP EVERY 5 YEARS due on 07/21/2018 HPV EVERY 5 YEARS due on 07/21/2018 COLORECTAL CANCER SCREENING,SEE MODIFIER due on 02/08/2024 TETANUS due on 03/20/2025 ONE PNEUMOVAX PRIOR TO AGE 65 Completed INFLUENZA Completed Data reviewed Component Latest Ref Rng AND Units 2016 Protein, Total 6.3 - 8.0 g/dL 6.8 Albumin 3.9 - 4.9 g/dL 3.8 (L) Calcium 8.5 - 10.2 mg/dL 9.3 Bilirubin, Total 0.2 - 1.3 mg/dL 0.2 Alkaline Phosphatase 32 - 117 U/L 71 AST 13 - 35 U/L 11 (L) Glucose 74 - 99 mg/dL 189 (H) BUN 7 - 21 mg/dL 8 Creatinine 0.58 - 0.96 mg/dL 0.59 Sodium 136 - 144 mmol/L 139 Potassium 3.7 - 5.1 mmol/L 3.8 Chloride 97 - 105 mmol/L 95 (L) CO2 22 - 30 mmol/L 22 Anion Gap 9 - 18 mmol/L 22 (H) ALT 7 - 38 U/L 9 eGFR- >60 eGFR-All Other Races . >60 Triglyceride 30 - 149 mg/dL 188 (H) Cholesterol, Total 100 - 199 mg/dL 150 HDL Cholesterol >55 mg/dL 27 (L) VLDL Cholesterol 6 - 40 mg/dL 38 LDL Cholesterol 60 - 129 mg/dL 85 Fasting Time hrs 12 TC:HDL Ratio 1.00 - 5.00 5.56 (H) LDL:HDL Ratio 0.50 - 3.55 3.15 Non HDL Cholesterol 90 - 159 mg/dL 123 Hemoglobin A1C 4.3 - 5.6 % 9.9 (H) Estimated Average Glucose mg/dL 237 TSH 0.400 - 5.500 uU/mL 0.736 Component Latest Ref Rng AND Units 04/27/2017 Glucose, Urine Neg mg/dL 2000 Bilirubin, Urine Neg neg Ketones, Urine Neg neg Specific [place], Ur 1.005 - 1.030 1.015 Hemoglobin/Blood,Ur Neg neg pH, Urine 4.5 - 8.0 6.0 Protein, Urine Neg mg/dL trace Urobilinogen, Urine Normal (<1.1) EU normal Nitrites Neg neg Leukocytes Neg trace Color/Appearance comment: dark Quality Check yes/no Yes ASSESSMENT/PLAN: 1. Recurrent UTI - ICD9: 599.0, ICD10: N39.0 (primary diagnosis) - Unclear if UTI is ongoing. Had recent treatment for UTI. Will send culture, treat as indicated. - UA positive for trace aure esterase, 2000 glucose - Send urine for culture - UA DIP B/O - URINE CULTURE 2. Vaginal yeast infection - ICD9: 112.1, ICD10: B37.3 - FLUCONAZOLE 150 MG TABLET 3. Cough - ICD9: 786.2, ICD10: R05 - Cough has been intermittent for an extended time period, has been on Omnicef, Levaquin in the past month. Will get imaging prior to antibiotic treatment. - BENZONATATE 100 MG CAPSULE - XR CHEST 2V FRONTAL/LAT 4. Pain - ICD9: 780.96, ICD10: R52 - Chronic lower back pain. - IBUPROFEN 800 MG TABLET 5. Urinary incontinence, unspecified type - ICD9: 788.30, ICD10: R32 - COMPOUNDED PRESCRIPTION for adult diapers. 6. Uncontrolled type 2 diabetes mellitus without complication, without long-term current use of insulin ([facility]) - ICD9: 250.02, ICD10: E11.65 - Encouraged patient to get previously placed Hgb A1c completed today. - BLOOD-GLUCOSE METER KIT Had a lengthy discussion with patient on the importance of improved diabetic control. Her last Hgb A1c was 9.9, has been on numerous prednisone tapers for various ailments. Given that her urine shows glucose greater than 2000 and her last Hgb A1c was 9.9, I declined to give her more prednisone. I did direct her to go to the lab today and get her labs completed, which were previously placed. Get labs and x-ray today. Will notify of results of labs, urine culture and chest x-ray. Advised ER if symptoms worsening in the form of persistent fevers, worsening shortness of breath, chest pain. Dc Smalls CNP ALLERGIES ALLERGIES DATE TYPE / CODE NAME / CODE REACTION SEVERITY SOURCE Drug Iodinated Hives Unknown [place] 8 Allergy/938740011 Contrast- Oral and Community (SNOMED CT) IV Hospital Dye/A534396099(RXN Repository ORM) Drug Sulfa (Sulfonamide Itching Unknown [place] 8 Allergy/415990580 Antibiotics)/F0010 Community (SNOMED CT) 32824(RXNORM) Hospital Repository Drug nitrofurantoin/F00 Rash Unknown [place] 8 Allergy/189216763 0205349(RXNORM) [facility] (SNOMED CT) Hospital Repository Drug fentanyl/[id number] Rash Unknown [place] 8 Allergy/248406575 1(RXNORM) [facility] (SNOMED CT) Hospital Repository Drug levofloxacin/F0060 Rash Unknown [place] 8 Allergy/080020535 91444(RXNORM) [facility] (SNOMED CT) Hospital Repository DRUG/499828102(SN NITROFURANTOIN ITCHING High [place] [address]) MONOHYD/M-[facility] [place] Repository DRUG METFORMIN GI UPSET Wu 6 INGREDI/444377599 Clinic [facility] (SNOMED CT) [place] Repository DRUG FENTANYL INTOLERANCE Wu 4 INGREDI/451446630 Clinic [facility] (SNOMED CT) [place] Repository Drug SULFA (SULFONAMIDE ITCHING Wu 4 Class/205371946(S ANTIBIOTICS) [facility] NOMED CT) [place] Repository DRUG CONTRAST DYE Vomiting High Wu 0 INGREDI/262081233 Clinic Main (SNOMED CT) [place] Repository Miscellaneous OTHER Vomiting Wu 0 Allergy/299413066 [facility] (SNOMED CT) [place] Repository ENCOUNTERS ENCOUNTERS ADMIT/DISCHARGE ACCOUNT ADMITTING ENCOUNTER LOCATION SOURCE NUMBER CLASS 04/20/2018/04/20/19 [id number] Ambulatory [place] [facility] Main [place] Repository 04/11/2018/04/11/19 [id number] Ambulatory [place] 19 [facility] [place] Repository 03/14/2018/03/14/20 [id number] Emergency [place] 18 [facility] ing:ED Repository 03/09/2018/03/10/20 [id number] Ambulatory [place] 18 [facility] Main [place] Repository 02/04/2018/02/05/20 [id number] Amb[address] Main [place] Repository 02/04/2018/02/08/20 [id number] Ambulatory [address] Main [place] Repository 01/20/2018/01/21/20 [id number] Ambulatory [address] Main [place] Repository 01/13/2018/01/14/20 [id number] Ambulatory [address] Main [place] Repository 01/13/2018/01/15/20 [id number] Ambulatory [address] Main [place] Repository 12/31/2017/01/04/20 [id number] Ambulatory [address] Main [place] Repository 12/14/2017 [id number] Ambulatory [facility] Main [place] Repository 12/14/2017/12/16/19 [id number] Ambulatory [address] Main [place] Repository 11/29/2017/11/30/19 [id number] Emergency [place] 18 [facility] ing:ED Repository 10/19/2017/10/20/19 [id number] Ambulatory [address] Main [place] Repository 10/19/2017/10/21/19 [id number] Ambulatory [address] Main [place] Repository 08/20/2017/08/22/19 [id number] Emergency [place] Mo[place] [address] [place] [address] ing:ED Repository 08/02/2017 [id number] Ambulatory [facility] Main [place] Repository 08/02/2017/08/04/19 [id number] Ambulatory [address] [place] Repository 07/01/2017/07/03/19 [id number] Ambulatory [address] Main [place] Repository 06/17/2017/06/19/19 [id number] Ambulatory [address] Main [place] Repository 06/08/2017/06/10/19 [id number] Ambulatory [address] Main [place] Repository 06/04/2017/06/05/19 [id number] Emergency [place] [facility] ing:ED Repository 05/19/2017/05/19/19 [id number] Emergency [place] 18 [facility] ing:ED Repository 05/12/2017/05/13/19 [id number] Ambulatory [address] Main [place] Repository 05/12/2017/05/12/19 [id number] Ambulatory [address] Main [place] Repository 05/12/2017 [id number] [facility] 05/04/2017/05/04/19 [id number] Ambulatory [address] Repository 04/27/2017/04/27/19 [id number] Ambulatory [address] Repository 04/27/2017/04/27/19 [id number] Ambulatory [address] Repository PAYERS PAYERS ENCOUNTER GUARANTOR PAYER SUBSCRIBER SOURCE 03/14/2018 KATHERIN King Primary KATHERIN [place] [id number] Insurance:TIAN MARCUSB: Community MINDY LNAP MEDICARE SENIOR [id number] ADVANTAPolicy Number: Repository [id number]: 330 [id number] [phone] (HP) Date:5017-24-92PX [address] [place] [address] 15351NO: 03/14/2018 Secondary KATHERIN King [place] Insurance:CARESOURCEP PIODOB[facility] [place] [id number] [facility] [id number] Repository Date:2018-03-14[address]ATTN: [place] [address]PY: 03/14/2018 Tertiary NOT GIVENUNK [place] Insurance:SELF PAY [facility] Number: Effective Repository Date:2018-03-14 11/29/2017 KATHERIN R Primary KATHERIN [place] [id number] Insurance:TIAN MARCUSB: Community [place] [employer]ARE SENIOR [id number] ADVANTAPolicy Number: Repository [id number]: 330 [id number] [phone] (HP) Date:4774-29-10[address]T [id number] [place] [address] 33802RL: 11/29/2017 Secondary KATHERIN R [place] Insurance:CARESOURCEP PIODOB: [facility] Number: [id number] Hospital [id number] Repository Date:2017-11-29[address]ATTN: [place] [address]DH: 11/29/2017 Tertiary NOT GIVENUNK [place] Insurance:SELF PAY [facility] Number: Effective Repository Date:2017-11-29 08/20/2017 KATHERIN R Primary KATHERIN R [place] [id number] Insurance:ANTHEM SINGLETONDOB: Community [employer] SENIOR [id number] ADVANTAPolicy Number: Repository [id number]: 330 [id number] [phone] (HP) Date:4517-38-01KB [address] [place] [address] 28507NX: 08/20/2017 Secondary KATHERIN R [place] Insurance:CARESOURCEP SINGLETONDOB: [facility] [place]: [id number] [facility] [id number] Repository Date:2017-08-20[address]ATTN: [place] [address]IX: 08/20/2017 Tertiary NOT GIVENUNK [place] Insurance:SELF PAY [facility] Number: Effective Repository Date:2017-08-20 06/04/2017 KATHERIN R Primary KATHERIN R [place] [id number] Insurance:ANTHEM SINGLETONDOB: Community [employer] SENIOR [id number] [place] ADVANTAPoly Number: Repository [id number]: (330 Effective [phone] (HP) Date:0984-27-34UZ [address] [place] [address] 50184DV: 06/04/2017 Secondary KATHERIN R [place] Insurance:CARESOURCEP SINGLETONDOB: [facility] Number: [id number] Hospital [id number] Repository Date:2017-06-04 [address]ATTN: [place] [address]VF: 06/04/2017 Tertiary NOT GIVENUNK [place] Insurance:SELF PAY [facility] Number: Effective Repository Date:2017-06-04 05/19/2017 Katherin R Primary Katherin R [place] [id number] Insurance[facility]ARE [facility] [id number]: Repository [id number]: [phone] [id number] [phone] () Date:2017-05-19 05/19/2017 Secondary Katherin [place] Insurance:CARESOURCEP SingletonDOB: [facility] Number: [id number] Hospital [id number] Repository Date:2017-05-19[address]ATTN: [place] [address]EN: 05/19/2017 Tertiary NOT GIVENABHINAV [place] Insurance:SELF PAY [facility] Number: Effective Repository Date:2017-05-19
== END 2018-03-14 22:37 | disposition home or self-care (01) ==
PROVIDERS: Emergency Provider Emergency Medicine; Family Provider Family Medicine; PCP Family Medicine
DX: S63.502A Unspecified sprain of left wrist, initial encounter (principal); W19.XXXA Unspecified fall, initial encounter; Y93.9 Activity, unspecified; Y92.9 Unspecified place or not applicable; Y99.9 Unspecified external cause status; J44.9 Chronic obstructive pulmonary disease, unspecified; R00.0 Tachycardia, unspecified; E66.9 Obesity, unspecified; Z79.84 Long term (current) use of oral hypoglycemic drugs; Z79.899 Other long term (current) drug therapy
CPT/HCPCS: 71045; 73090; 73110; 73130; 94640; 96372; 99285

== ENCOUNTER 2018-06-05 16:56 | Emergency (ER) | payer MEDICARE, MEDICAID, SELFPAY ==
[2018-06-05 16:57] VITALS: BP 130/74; PULSE 109; RESP 16; TEMP 37.3; O2SAT 95; BMI 43.4
--- NOTE | 2018-06-05 17:17 | ED.DCSUM_ITS ---
- ER Visit Summary Date of Service: 06/05/18 Chief Complaint: Urinary symptoms History of Present Illness: The patient is a 52 F who presents for 3 days of urinary symptoms. Patient states she has been having dysuria and urinary frequency. She states it also has been difficult to P. She denies hematuria. She states she thinks she has been having a fever at night. Denies upper abdominal pain, nausea or vomiting, but does states she has been having diarrhea. Patient has history of prior UTIs. She has COPD, diabetes and rheumatoid arthritis. Multiple antibiotic allergies. Patient is also complaining of a yeast infection under her pannus Physical Examination: Vital signs: afebrile, hemodynamically stable, no hypoxia on room air General: well nourished, well developed, in no distress Skin: warm, dry, no rash, no pallor HEENT: normocephalic and atraumatic; PERRL, EOMI, moist mucous membranes Cardiovascular: Mildly tachycardic rate and rhythm without murmurs, no peripheral edema, 2+ pulses all distal extremities Respiratory: No increased work of breathing, diffuse end expiratory wheezing Abdominal: Abdomen is soft, nontender with normoactive bowel sounds, no guarding or rebound, no masses, intertriginous regions under the pannus and in the inguinal creases has erythematous patches with satellite lesions consistent with a candidal infection MSK: Moves all extremities, no deformities, normal strength Neuro: Awake and alert, oriented ?4. No facial droop, sensation and motor function intact and symmetric Test Results: Abnormal Lab Results 06/05/18 17:25 Urine Color Yellow Urine Clarity Cloudy Urine pH 6.5 Ur Specific [place] 1.010 Urine Protein 30 H Urine Glucose (UA) 250 H Urine Ketones Negative Urine Occult Blood 50 H Urine Nitrite Positive H Urine Bilirubin Negative Urine Urobilinogen 1 H Ur Leukocyte Esterase 500 H Urine RBC 5-10 SEEN Urine WBC 50-100 SEEN Ur Squamous Epith Cells 5-10 SEEN Amorphous Sediment 1+ URATE Urine Bacteria 1+ Urine Mucus 0 SEEN Medications Given Discontinued Medications Cephalexin (Keflex) 500 mg PO X1 ONE Stop: 06/05/18 17:44 Last Admin: 06/05/18 17:47 Dose: 500 mg Emergency Department Course and Treatment: Urinalysis was performed. It was positive for infection. Based on patient's prior culture results, she was s tarted on Keflex. Urine culture is pending. Patient will be prescribed nystatin powder for the intertriginous yeast infection. Patient was encouraged to follow-up with her doctor regarding the intertrigo and also the recurrent UTIs. Patient discharged home very well-appearing. Treatment Plan: [] Disposition: [] Impression: Recurrent UTI, candidal intertrigo This note was generated with [employer] dictation software. It may contain incorrect words, spelling, and punctuation that were not noted in review of the chart prior to signing ED Disposition - Plan for ED Patient: Disposition: Home or Assisted Living Instructions: ED Candidiasis Cutaneous, ED UTI Cystitis Female Prescriptions: Cephalexin [Keflex] 500 mg PO Q12 #14 cap RX: Nystatin Powder [Mycostatin Powder] 1 applic TOPICAL BID 14 Days #1 bottle Referrals: Fredy Walsh MD [Primary Care Provider] - 1 Week if not improving Additional Instructions: Take the antibiotic twice daily as prescribed for your urinary infection. Use the nystatin powder for the yeast infection in your skin creases. Please follow-up with your doctor if you continue to have issues with these infections. If you have any worsening of your condition or any new concerning symptoms, please return immediately to the emergency department for another evaluation.
[2018-06-05 17:31] LABS: Mucous, Urine 0 SEEN /hpf (<or=2+)
[2018-06-05 17:32] LABS: Color, Urine Yellow (Yellow); Glucose, Dipstick 250 mg/dl (Normal); Ketone-Dipstick Negative (Negative); Leukocyte Esterase-Dipstick 500 /ul (Negative); Nitrite-Dipstick Positive (Negative); Occult Blood-Urine 50 /ul (Negative); Protein-Dipstick 30 mg/dl (Negative); Urine Bilirubin Dipstick Negative (Negative); Urine Clarity Cloudy (Clear); Urine Urobilinogen 1 mg/dl (Normal); Urine pH 6.5 (5.0 - 8.0)
[2018-06-05 17:38] LABS: Amorphous Sediment 1+ URATE; Bacteria 1+ /hpf (None Seen); Red Blood Cells-Urine 5-10 SEEN /hpf (0-5); Squamous Epithelial Cells - UA 5-10 SEEN /hpf (5-10); White Blood Cells 50-100 SEEN /hpf (0-5)
[2018-06-05] MEDS: Cephalexin 250 MG Capsule 500 MG PO (17:47)
[2018-06-05 17:58] VITALS: RESP 16
== END 2018-06-05 18:01 | disposition home or self-care (01) ==
LOC: ED 17:50
PROVIDERS: Emergency Provider Emergency Medicine; Family Provider Family Medicine; PCP Family Medicine
DX: N30.00 Acute cystitis without hematuria (principal); L30.4 Erythema intertrigo; B37.2 Candidiasis of skin and nail; J44.9 Chronic obstructive pulmonary disease, unspecified; E11.9 Type 2 diabetes mellitus without complications; M06.9 Rheumatoid arthritis, unspecified; E66.9 Obesity, unspecified; Z79.84 Long term (current) use of oral hypoglycemic drugs; Z79.899 Other long term (current) drug therapy; Z87.440 Personal history of urinary (tract) infections
CPT/HCPCS: 81001; 87086; 87088; 87186; 99284

== ENCOUNTER 2018-07-27 20:06 | Inpatient (IN) | payer MEDICARE, MEDICAID, SELFPAY ==
[2018-07-27] VITALS (9 sets, daily range): BP systolic 70–147; BP diastolic 38–101; PULSE 54–82; RESP 17–25; TEMP 36.8–37.2; O2SAT 92–98; BMI 45.2
--- NOTE | 2018-07-27 21:07 | RAD_ITS ---
STUDY: X-RAY CHEST REASON FOR EXAM: Female, 52 years old. Cough, shortness of breath TECHNIQUE: Single frontal view COMPARISON: March 14, 2018 FINDINGS: The lungs are expanded. Right upper lobe infiltrate is noted. Normal size heart. Normal mediastinum and tony. Normal visualized pulmonary arteries. Normal visualized aortic arch and descending thoracic aorta. Mild degenerative changes of the thoracic spine. Normal visualized ribs, clavicles, and shoulders. There is no demonstrated abnormality of the visualized soft tissue structures of the upper abdomen. RAD/Chest 1 View (Portable) IMPRESSION: Right upper lobe infiltrate. Electronically Signed: Wil Harrison DO at 21:35 EDT Tel [phone], Service support ,
--- NOTE | 2018-07-27 21:23 | EKG12_ITS ---
Test Reason : WEAKNESS Blood Pressure : / mmHG Vent. Rate : 067 BPM Atrial Rate : 067 BPM P-R Int : 142 ms QRS Dur : 086 ms QT Int : 416 ms P-R-T Axes : 026 052 049 degrees QTc Int : 439 ms Normal sinus rhythm Low voltage QRS Borderline ECG Confirmed by EDDIE CAMP ([id number]), visual effects editor JOANIE MARTINES ([id number]) on 08/01/2018 2:05:35 PM Referred By: Jimmy Bae Confirmed By:KAYLA CAMP
[2018-07-27 21:46] LABS: Absolute Lymphocyte Count 1.71 X10^3/ul (0.83-4.51); Absolute Neutrophil Count 23.5 X10^3/uL (2.0-7.7); Basophil# 0.02 X10^3/uL; Basophil% 0.1 % (0-1); Eosinophil# 0.03 X10^3/uL; Eosinophils% 0.1 % (0-5); Hematocrit 35.2 % (37-47); Hemoglobin 11.4 g/dl (12.0-15.0); Lymphocyte # 1.71 X10^3/ul (4.0); Lymphocyte % 6.1 % (19-41); Mean Corp Hgb Conc 32.4 g/gl (32-36); Mean Corpuscular Hgb 27.5 pg (27.0-32.0); Mean Corpuscular Volume 84.8 fL (81-99); Monocyte% 9.3 % (0-10); Neutrophil # 23.52 X10^3/uL (2.7-7.7); Platelet Count 390 K/mm3 (150-450); RBC Distribution Width CV 16.3 % (11.6-14.6); RBC Distribution Width SD 50.3 fl (35.1-43.9); Red Blood Count 4.15 M/mm3 (4.2-5.4)
[2018-07-27 21:54] LABS: ALB/GLOB Ratio 0.6 RATIO (0.9-2.4); AST(SGOT) 42 U/L (15-37); Alanine Aminotransfer ALT/SGPT 19 U/L (13-56); Albumin, Serum 2.6 g/dL (3.2-5.0); Alkaline Phosphatase 78 U/L (45-117); Anion Gap 11 (5-15); BUN 35 mg/dL (7-18); BUN/Creat Ratio 7.4 RATIO (10-20); Calcium,Total 8.6 mg/dL (8.5-10.1); Chloride 96 mmol/L (98-107); Creatinine, Serum 4.74 mg/dL (0.55-1.02); EST Glomerular Filtration Rate 10 mL/min (>60); Est Glom Filt Rate - Afr Amer 12 mL/min (>60); Estimated Creatinine Clearance 14.51 ml/min; Globulin 4.7 g/dL (2.2-4.2); Glucose 131 mg/dL (74-106); Protein, Total 7.3 g/dL (6.4-8.2); Sodium Level 128 mmol/L (136-145)
[2018-07-27 21:57] LABS: AST(SGOT) 42 U/L (15-37); Alanine Aminotransfer ALT/SGPT 18 U/L (13-56); Albumin, Serum 2.6 g/dL (3.2-5.0); Alkaline Phosphatase 77 U/L (45-117); Bilirubin, Direct 0.24 mg/dL (0.00-0.30); Globulin 4.8 g/dL (2.2-4.2); Protein, Total 7.4 g/dL (6.4-8.2)
[2018-07-27 22:01] LABS: Mucous, Urine 0 SEEN /hpf (<or=2+)
[2018-07-27 22:11] LABS: Color, Urine Yellow (Yellow); Glucose, Dipstick Normal (Normal); Ketone-Dipstick Negative (Negative); Leukocyte Esterase-Dipstick 500 /ul (Negative); Nitrite-Dipstick Negative (Negative); Occult Blood-Urine 50 /ul (Negative); Protein-Dipstick 30 mg/dl (Negative); Urine Bilirubin Dipstick Negative (Negative); Urine Clarity Cloudy (Clear); Urine Urobilinogen Normal (Normal)
[2018-07-27] MEDS: Ipratropium/Albuterol Sulfate 3 ML AMPUL.NEB INHALATION (22:15)
[2018-07-27] MEDS: Albuterol 2.5 MG/3 ML VIAL.NEB. INHALATION (22:15)
[2018-07-27 22:17] LABS: Differential Comment SCANNED; Differential Indicated SCAN CRITERIA MET; POSITIVE COUNT NO; POSITIVE DIFFERENTIAL YES; POSITIVE MORPHOLOGY NO
[2018-07-27 22:19] LABS: White Blood Cells >100 SEEN /hpf (0-5)
[2018-07-27 22:20] LABS: Bacteria RARE /hpf (None Seen); Red Blood Cells-Urine 5-10 SEEN /hpf (0-5); Squamous Epithelial Cells - UA 5-10 SEEN /hpf (5-10)
--- NOTE | 2018-07-27 22:39 | RAD_ITS ---
STUDY: X-RAY - PELVIS AND RIGHT HIP REASON FOR EXAM: Female, 52 years old. Fall TECHNIQUE: 3 views of the pelvis and hip. COMPARISON: None. FINDINGS: There is a non-specific bowel gas pattern. Normal visualized soft tissue structures. Normal bilateral iliac wings, sacroiliac joints and visualized sacrum. Normal bilateral superior and inferior pubic rami. Normal pubic symphysis. Normal bilateral ischial tuberosities. Normal visualized femoral head. Normal acetabulum. Normal hip joint. RAD/HIP, UNI W/ Pelvis 2-3 Views IMPRESSION: Normal x-ray examination of the pelvis and hip. Electronically Signed: Wil Harrison DO at 22:57 EDT Tel [phone], Service support ,
[2018-07-27 22:41] LABS: Lactic Acid 1.7 mmol/L (0.4-2.0)
[2018-07-27] MEDS: 0.9% Normal Saline 1,000 ML 999 ML IV (23:35)
[2018-07-27] MEDS: HYDROcodone Bitartrate/Apap 5/325 Tablet PO (23:41)
--- NOTE | 2018-07-27 23:52 | PCM.HP.STD ---
Problem List (1) Community acquired pneumonia Status: Acute (2) Severe sepsis Status: Acute (3) UTI (urinary tract infection) Status: Acute Qualifiers: Urinary tract infection type: acute cystitis History of Present Illness Date of Admission: 07/27/18 Chief Complaint: fall The patient is a 52 year old F with a significant history of a previous UTI; diabetes mellitus; hypertension; rheumatic arthritis; psoriatic arthritis; hypothyroidism; and mental health disease who was brought to the emergency department by the paramedics because she fell. Reportedly paramedics took the patient to her home where they found that she was missing many of the medication from her medication packet. These missing medications include duloxetine; hydroxychloroquine; pantoprazole; glimepiride; levothyroxine; lisinopril; and gabapentin. However patient denies that it is her who took those medications. Reportedly patient mainly complained to the ED doc of right hip pain following her fall; and upon further prompting reported that she have issue with her lungs On my evaluation patient reported that her main complaint was generalized abdominal pain abdominal pain. At emergency department patient was found to have right upper lobe infiltrate and abnormal urinalysis. Patient reported to ED nurse that her bowels had to move but before further help could be given she had a loose bowel movement requiring her bed linings to be changed. Reportedly at emergency department patient was prevented from getting access to her home medication which she was in the process of taking. Upon questioning patient endorses shortness of breath. Almazan catheter was placed in the emergency department for urinary retention. Patient was found to have a leukocyte of 28,000; sodium of 128; and severely elevated creatinine of 4.74. Patient was noted to have hypotension with manually obtained systolic blood pressure of 80. Past Medical History Past Medical History (Chronic Problems): Chronic Problems Chronic obstructive lung disease (Chronic) Cigarette smoker (Chronic) Rheumatoid arthritis (Chronic) Leukocytosis (Chronic) likely due to recent high dose steroids Chronic back pain (Chronic) Obesity, morbid, BMI 50 or higher (Chronic) Drug-seeking behavior (Chronic) Diabetes mellitus, type II (Chronic) Psoriatic arthritis (Chronic) HLD (hyperlipidemia) (Chronic) Hypothyroidism (Chronic) Anxiety and depression (Chronic) GERD (gastroesophageal reflux disease) (Chronic) HTN (hypertension) (Chronic) UTI (urinary tract infection) (Chronic) Allergies fentanyl Allergy (Verified 07/27/18 20:12) Rash Iodinated Contrast- Oral and IV Dye [Iodinated Contrast Media - IV Dye] Allergy (Verified 07/27/18 20:12) Hives CAN BE PRE-MEDICATED levofloxacin [From Levaquin] Allergy (Verified 07/27/18 20:12) Rash nitrofurantoin [From Macrobid] Allergy (Verified 07/27/18 20:12) Rash Sulfa (Sulfonamide Antibiotics) Allergy (Verified 07/27/18 20:12) Itching Home Medications: Ambulatory Orders Medication Instructions Recorded Atorvastatin Calcium [Lipitor] 20 mg PO QHS 08/28/15 Duloxetine HCl 120 mg PO DAILY 08/28/15 Levothyroxine [Synthroid] 150 mcg PO DAILY 08/28/15 busPIRone [Buspar] 30 mg PO BID #0 11/08/15 Albuterol Inhaler [Ventolin Hfa] 1 - 2 puff INHALATION Q4H PRN PRN 11/10/15 #1 inhaler Pantoprazole Sodium 40 mg PO DAILY 06/01/16 Lisinopril [Zestril] 10 mg PO DAILY 06/28/16 Quetiapine Fumarate [Seroquel] 200 mg PO QHS 06/28/16 Gabapentin [Neurontin] 800 mg PO .COMPLEX 01/17/17 Glimepiride [Amaryl] 4 mg PO DAILY 02/23/17 Bupropion HCl [Bupropion Xl] 300 mg PO DAILY 06/05/18 Cyclobenzaprine [Flexeril] 5 mg PO .COMPLEX 06/05/18 Doxepin HCl 50 - 100 mg PO QHS PRN 06/05/18 Empagliflozin [Jardiance] 10 mg PO DAILY 06/05/18 Hydroxychloroquine [Plaquenil] 300 mg PO DAILYCM 06/05/18 Quetiapine Fumarate [Seroquel] 25 mg PO BID PRN 06/05/18 Surgical History: cholecystectomy, gastric bypass, - - Multiple back surgeries, ?6 Psychiatric History: Anxiety, Depression [employer] History: No pertinent [employer] history Smoking Status: Current every day smoker Tobacco Use: Cigarettes Alcohol: Occasional - *Family History Paternal History Items: Cancer - Lung CA, tobacco use. Offspring History Items: - - Obesity Maternal History Items: Stroke Review of Systems Constitutional: Denies: Chills, Fever, Weight Change HEENT: Denies: Head Aches, Sinus Congestion, Sinus Drainage Cardiovascular: Denies: Chest Pain, Palpitations Respiratory: Reports: Shortness of Breath. Denies: Cough Gastrointestinal: Reports: Abdominal Pain, Diarrhea Genitourinary: Denies: Incontinence Musculoskeletal: Reports: Leg Pain - Bilateral. Denies: Joint Pain, Joint Tenderness Skin: Denies: Rash, Wounds Neurological: Denies: Numbness, Tingling, Focal weakness Psychiatric: Denies: Anxiety, Depression, Homicidal Ideations, Suicidal Ideations Hematologic/ Lymphatic: Denies: Easy Bruising, Easy Bleeding VTE Information - Inpt Only VTE Present on Admission: No VTE Mechan Device Prophylaxis: None VTE Pharm Prophylaxis ordered?: Yes Patient Problems: Active and Suspected Problems Community acquired pneumonia (Acute) - Physical Exam General: Alert, Oriented x3 - But overly talkative; and with some incoherent speech., Cooperative, - HEENT: Atraumatic, PERRLA, EOMI, Normocephalic Neck: Supple, No JVD, Negative Carotid Bruits Lungs: Rales, Wheezes Cardiovascular: Regular rate, No murmurs Abdomen: Bowel Sounds Present, Soft, Non Tender Extremities: No edema, Capillary Refill Less than 3 Seconds Skin: No rashes, No breakdown Musculoskeletal: Tenderness - Of bilateral hips Neurological: Neuro grossly intact Psych/Mental Status: - - [place] talkative with some incoherent speech. Vital Signs Temp Pulse Resp BP Pulse Ox 98.9 F 67 24 H 147/101 H 95 07/27/18 22:36 07/27/18 22:36 07/27/18 22:36 07/27/18 22:23 07/27/18 22:36 Oxygen Flow Rate (L/min) 2 Oxygen Delivery Method Nasal Cannula Weight: 139 kg Body Mass Index (BMI) 45.2 Finger Stick Blood Glucose 294 Laboratory Tests Past 24 Hrs 07/27/18 07/27/18 07/27/18 20:41 20:41 20:41 WBC 28.0 H RBC 4.15 L Hgb 11.4 L Hct 35.2 L MCV 84.8 MCH 27.5 MCHC 32.4 RDW 16.3 H RDW Differential 50.3 H Plt Count 390 MPV 10.0 Immature Gran % (Auto) 0.400 Neut % (Auto) 84.0 H Lymph % (Auto) 6.1 L [place] % (Auto) 9.3 Eos % (Auto) 0.1 Baso % (Auto) 0.1 Absolute Neuts (auto) 23.5 H Absolute Lymphs (auto) 1.71 Total Counted Not Reportable Differential Comment SCANNED Diff Path Review May foll Sodium 128 L Potassium 5.0 Chloride 96 L Carbon Dioxide 21.0 Anion Gap 11 BUN 35 H Creatinine 4.74 H Estim Creat Clear Calc 14.51 Est GFR (MDRD) Af Amer 12 L Est GFR (MDRD) Non-Af 10 L BUN/Creatinine Ratio 7.4 L Glucose 131 H Lactic Acid Calcium 8.6 Total Bilirubin 0.70 0.60 Direct Bilirubin 0.24 AST 42 H 42 H ALT 18 19 Alkaline Phosphatase 77 78 Troponin I Total Protein 7.4 7.3 Albumin 2.6 L 2.6 L Globulin 4.8 H 4.7 H Albumin/Globulin Ratio 0.6 L Urine Color Urine Clarity Urine pH Ur Specific [place] Urine Protein Urine Glucose (UA) Urine Ketones Urine Occult Blood Urine Nitrite Urine Bilirubin Urine Urobilinogen Ur Leukocyte Esterase Urine RBC Urine WBC Ur Squamous Epith Cells Urine Bacteria Urine Mucus 07/27/18 07/27/18 07/27/18 20:41 21:55 22:06 WBC RBC Hgb Hct MCV MCH MCHC RDW RDW Differential Plt Count MPV Immature Gran % (Auto) Neut % (Auto) Lymph % (Auto) [place] % (Auto) Eos % (Auto) Baso % (Auto) Absolute Neuts (auto) Absolute Lymphs (auto) Total Counted Differential Comment Diff Path Review Sodium Potassium Chloride Carbon Dioxide Anion Gap BUN Creatinine Estim Creat Clear Calc Est GFR (MDRD) Af Amer Est GFR (MDRD) Non-Af BUN/Creatinine Ratio Glucose Lactic Acid 1.7 Calcium Total Bilirubin Direct Bilirubin AST ALT Alkaline Phosphatase Troponin I < 0.015 Total Protein Albumin Globulin Albumin/Globulin Ratio Urine Color Yellow Urine Clarity Cloudy Urine pH 5.0 Ur Specific [place] 1.020 Urine Protein 30 H Urine Glucose (UA) Normal Urine Ketones Negative Urine Occult Blood 50 H Urine Nitrite Negative Urine Bilirubin Negative Urine Urobilinogen Normal Ur Leukocyte Esterase 500 H Urine RBC 5-10 SEEN Urine WBC >100 SEEN Ur Squamous Epith Cells 5-10 SEEN Urine Bacteria RARE Urine Mucus 0 SEEN Assessment/Plan All Active Problems Community acquired pneumonia (Acute) SIRS (systemic inflammatory response syndrome) (Acute) Severe sepsis (Acute) Intractable nausea and vomiting (Acute) UTI (urinary tract infection) (Acute) Severe sepsis (Acute) Severe sepsis (Acute) Overdose (Acute) Unresponsive episode (Acute) Acute hypoxemic respiratory failure (Acute) Lower abdominal pain (Acute) Diarrhea (Acute) Nausea and vomiting (Acute) Pneumonia, bacterial (Acute) UTI (urinary tract infection) (Acute) Diarrhea (Acute) Abdominal pain (Acute) Diarrhea (Resolved) History of Clostridium difficile (Resolved) Acute exacerbation of chronic obstructive pulmonary disease (COPD) (Ruled-out) SIRS with Severe sepsis due to UTI (Ruled-out) Urinary tract infection (Ruled-out) The patient is a 52 year old F with a significant history of a previous UTI; diabetes mellitus; hypertension; rheumatic arthritis; psoriatic arthritis; hypothyroidism; and mental health disease who was brought to the emergency department by the paramedics because she fell; had missing medications; complained of right hip pain; abdominal pain; bilateral lower extremity pain and was found to meet SIRS criteria with tachypnea; severe hypotension and with source of infection as the lung and urine; and probably the gut concerning for severe sepsis. Severe Sepsis Highest respiratory rate 24; multiple blood pressure readings in the 80s; received 4.5 L of normal saline by septic protocol initiated at emergency department; responded to fluid bolus with systolic blood pressure just above 90.; Leukocytosis of 28,000 Independent review of current chest x-ray compared with previous confirms right upper lobe infiltrate. Urinalysis showed 500 leukocyte esterase; rare bacteria; urine occult blood was present; and urine protein was present. Of note squamous epithelial cells were present. Lactic acid was unremarkable. Blood cultures were obtained in the emergency department. Ceftriaxone and azithromycin was started at emergency department; continued If systolic blood pressure is less than 90 will consider pressors. Initial plan was to hold off further IVF but with repeat BMP showing an increase of creatinine but rapidly improved sodium will resume IVF.Notably her glucose on BMP was 59. Will do 0.45% normal saline with D5W at 75ml/hr and will consult nephrology Hold all anti-hypertensive medication Community-acquired pneumonia Management as above. Strep pneumoniae antigen and Legionella urine antigen ordered. Robitussin ordered Because of associated wheeze and rhonchi Solu-Medrol ordered. Scheduled DuoNeb and as needed albuterol ordered. Chest physiotherapy and incentive spirometer ordered. JANESSA On presentation her creatinine was 4.74. Patient received IV fluids of 4.5LNSS and her creatinine has increased to 4.84. Patient will be started on half-normal saline with D5W and will repeat BMP at noon on 07/28/2018. ED Doc ordered Almazan because of consideration of post-obstructive JANESSA. However with a Almazan placed her creatinine has increased. Avoid nephrotoxic's. Home lisinopril held. Of course the patient is hypotensive. Trend BMP. Probable acute cystitis Patient with positive leukocyte esterase; urine occult blood; and UA protein but with rare bacteria and presence of urine squamous epithelial cells. We will treat as acute cystitis. Ceftriaxone continued. Urine culture ordered. Acute Encephalopathy Seroquel held due to somewhat confusion at time of examination and due to history of missing medication. Also, nurse reports that patient can barely stay awake at the ICU where she has been admitted. Hold all psychiatry medication including bupropion; buspirone; doxepin; and duloxetine Hold Plaquenil. We will check a TSH. Fall Tylenol for pain Etiology includes mechanical; drowsiness from over medication; cardiac or others. Placed on telemetry on ICU Hyponatremia Likely from hypovolemia Initial sodium was 128. With IV fluids her sodium has rapidly increased to 136 in about 8 hours; making ATN plausible. For JANESSA; and hypoglycemia D5W and half normal saline has been ordered at this time. Trend BMP. Hypoglycemia High blood glucose on admission was 131 on BMP. Repeat BMP showed blood glucose of 59. Half an amp of D50 ordered. We will put on D5W with half-normal saline. Accu-Cheks every hour until blood glucose is more than 100 then Accu-Cheks every 4 hours. Jardiance held. Among patients missing medications was glimepiride. If indeed the patient took this medication it may be contributing to her hypoglycemia. Psuedo-Hypocalcemia Initial calcium on BMP presentation was 8.6. Repeated calcium was 7.4. Albumin is 2.6. Corrected calcium is 8.5. Check ionized calcium. GERD Protonix continued Anxiety disorder Buspirone held due to acute encephalopathy. Tobacco abuse Counselled Nicotine patch ordered. Neuropathy Gabapentin held due to acute encephalopathy Flexeril held. Hypothyroidism Synthroid continued DVT prophylaxis Will stay away from lovenox due to JANESSA Heparin subcutaneous held. Code Visit Inpatient E&M: 75373 Init Hosp L3
[2018-07-28] VITALS (30 sets, daily range): BP systolic 78–113; BP diastolic 41–88; PULSE 67–83; RESP 12–24; TEMP 35.7–38.2; O2SAT 90–99; BMI 43.6
--- NOTE | 2018-07-28 00:05 | ED.VISSUMM ---
- ER Visit Summary Date of Service: 07/28/18 Chief Complaint: Fall History of Present Illness: The patient is a 52 F who states that she fell tonight onto her right hip and has pain. States she cannot urinate. She states for the past week she is developed a cough some shortness of breath and she states she is concerned that she may have something on her right lung. Patient is well-known to us and 1 of the things that we noticed that she does not seem to be her normal self. There was concern that she took all of her Neurontin for the week based upon looking at her blister packs. She denies this. She denies any fevers. Physical Examination: Afebrile vital signs are stable Gen: Well-nourished well-developed Head: Normocephalic atraumatic Eyes: Perrl EOMI ENT: TMs clear no rhinorrhea moist mucous membranes Neck: Supple no lymphadenopathy no JVD nontender CVS: Regular rate rhythm no murmurs normal S1-S2 Respiratory: No distress right greater than left rhonchi and wheezing chest nontender audible rhonchi in conversation Abdomen: Soft nontender nondistended normal bowel sounds no masses Back: Nontender Extremity: Tender palpation over the right hip Skin: Normal color no rash Neuro: alert orientated ?3 but confused. Psych: Normal affect normal mood Test Results: Chest x-ray shows a right upper lobe infiltrate. White count is 28,000. Creatinine at 4.74. Urinalysis greater than 100 white cells 5-10 red blood cells and rare bacteria. Troponin negative. Normal lactic acid. Hip and pelvis x-rays were negative. Blood and urine cultures were obtained. EKG sinus at a rate of 67. Emergency Department Course and Treatment: Patient received IV fluids Rocephin and azithromycin as well as aerosols. I gave her one [place] for pain. A Almazan catheter was placed with resolution of obstruction. Chemically stable until her fourth hour in the emergency department when she began hypotensive. She has been receiving IV fluids and the 30 cc/kg fluid boluses were ordered which will total just over 4000 cc. We will plan for an ICU admission. Impression: 1. Pneumonia 2. Sepsis 3. Acute renal failure due to postobstructive nephropathy 4. Acute urinary retention 5. UTI 6. Hypotension 7. Care time 35 minutes This note was generated with [employer] software. It may contain incorrect words, spelling, and punctuation that were not noted in review of the chart prior to signing ED Disposition - Plan for ED Patient: Referrals: Fredy Walsh MD [Primary Care Provider] -
[2018-07-28] MEDS: 0.9% Normal Saline 1,000 ML 999 ML IV ×5 (00:44→23:34)
--- NOTE | 2018-07-28 01:03 | NURSING ---
ER called to give report. No admission order yet received. Room is ready and advised [employer]ER to obtain admission order, but could bring pt up as soon as the order was placed.
--- NOTE | 2018-07-28 01:51 | ED.RN ---
pt medication were brought in by ems. medication were placed on countertop at the end of pt bed. pt was found at the bottom of the bed with med pack in hand. pt states i need my morning medications. pt was asked if she took any of her medications. she stated no. random pills were found on the floor. no pill fragment were visible in pt mouth. meds were removed from room and keep at rn station. randy cook rn [id number]
[2018-07-28] MEDS: Ipratropium/Albuterol Sulfate 3 ML AMPUL.NEB INHALATION ×5 (02:20→23:25)
--- NOTE | 2018-07-28 03:05 | NURSING ---
FORK [employer]SEM[employer]ER reported pt had 3L NS bolus in ER and another 1.5L bolus infusing upon arrival to floor. Total 4.5L
--- NOTE | 2018-07-28 03:28 | NURSING ---
IV from ER or squad, to LAC was half out. D/C'd IV intact. DSD applied.
[2018-07-28 03:36] LABS: Basophil# 0.03 X10^3/uL; Basophil% 0.1 % (0-1); Eosinophil# 0.19 X10^3/uL; Eosinophils% 0.7 % (0-5); Hematocrit 31.1 % (37-47); Hemoglobin 10.2 g/dl (12.0-15.0); Mean Corp Hgb Conc 32.8 g/gl (32-36); Mean Corpuscular Hgb 28.4 pg (27.0-32.0); Mean Corpuscular Volume 86.6 fL (81-99); Mean Platelet Vol. 10.4 fl (6.2-12.0); Monocyte# 3.11 X10^3/uL; Monocyte% 11.2 % (0-10); Neutrophil # 21.95 X10^3/uL (2.7-7.7); Neutrophil % 79.4 % (47-70); Platelet Count 292 K/mm3 (150-450); RBC Distribution Width SD 52.5 fl (35.1-43.9); Red Blood Count 3.59 M/mm3 (4.2-5.4); White Blood Count 27.7 K/mm3 (4.4-11.0)
[2018-07-28 03:37] LABS: Differential Indicated SCAN CRITERIA MET; POSITIVE COUNT NO; POSITIVE DIFFERENTIAL YES; POSITIVE MORPHOLOGY NO
--- NOTE | 2018-07-28 03:38 | NURSING ---
Home medication packs in Locked drawer of Med Room.
[2018-07-28 03:54] LABS: Differential Comment SCANNED
[2018-07-28 04:36] LABS: Anion Gap 13 (5-15); BUN 38 mg/dL (7-18); BUN/Creat Ratio 7.9 RATIO (10-20); Calcium,Total 7.4 mg/dL (8.5-10.1); Chloride 103 mmol/L (98-107); Creatinine, Serum 4.84 mg/dL (0.55-1.02); EST Glomerular Filtration Rate 10 mL/min (>60); Est Glom Filt Rate - Afr Amer 12 mL/min (>60); Estimated Creatinine Clearance 14.21 ml/min; Glucose 59 mg/dL (74-106); Potassium 4.9 mmol/L (3.5-5.1); Sodium Level 136 mmol/L (136-145)
[2018-07-28] MEDS: 0.9% NaCl Peripheral Flush Adult/Peds IV ×2 (04:36→22:23)
[2018-07-28] MEDS: Levothyroxine 150 MCG Tablet PO (05:12)
[2018-07-28] MEDS: Heparin Injection (Vial) 5,000 UNIT/ML VIAL 5000 UNIT SC ×3 (05:12→21:13)
[2018-07-28] MEDS: Dextrose 50%-Water 25 GM/50 ML DISP.SYRIN IV (05:25)
[2018-07-28] MEDS: Dext 5%-0.45% NS 1,000 ML 75 ML IV (05:25)
[2018-07-28 05:59] LABS: Thyroid Stim Hormone (TSH) 1.24 uIU/mL (0.358-3.74)
[2018-07-28 06:41] LABS: Bedside Glucose 164 mg/dL (70-110)
[2018-07-28] MEDS: Acetaminophen 325 MG Tablet 650 MG PO (07:38)
--- NOTE | 2018-07-28 07:59 | PCM.PN.HOSP ---
Patient Problems: Active and Suspected Problems Community acquired pneumonia (Acute) Subjective: Patient was seen and examined. She feels improved. She appears concerned and persevering about the results of her urine toxicology. She would like to know what she was injected with. No hypotension noted overnight. No fever, no chills. Vitals/I&O's: Vital Signs Temp Pulse Resp BP Pulse Ox 100.8 F H 78 20 H 99/55 L 94 07/28/18 06:00 07/28/18 07:16 07/28/18 07:16 07/28/18 06:00 07/28/18 07:16 Oxygen Flow Rate (L/min) 4 Oxygen Delivery Method Nasal Cannula Weight: 134 kg Body Mass Index (BMI) 43.6 Finger Stick Blood Glucose 294 Intake and Output for Last 24 Hours 07/26/18 07/27/18 07/28/18 23:59 23:59 23:59 Intake Total 4500 / 4500 Output Total 150 / 150 Balance 4350 / 4350 General: Alert, Oriented x3, Cooperative, No apparent distress HEENT: Atraumatic, PERRLA, EOMI, Normocephalic Oral: Moist Mucosa Neck: Supple Lungs: Clear to auscultation, Normal air movement Cardiovascular: Regular rate, Regular Rhythm, Normal S1, Normal S2, No murmurs Abdomen: Bowel Sounds Present, Soft, Non Tender, Non-Distended, No Hepato-splenomegaly Extremities: No edema Skin: No rashes Musculoskeletal: No Tenderness to Palpation of Joints or Extremities Lymphatic: No Cervical, Supraclavicular, or Inguinal Adenopathy Neurological: Cranial nerves II-XII grossly intact, Neuro grossly intact Psych/Mental Status: Normal Affect, Appropriate Microbiology Past 72 Hours 07/27/18 21:55 Urine Catheter - Almazan Legionella Antigen - Final 07/27/18 21:55 Urine Catheter - Almazan Streptococcus pneumoniae Antigen (M - Final Laboratory Results 07/27/18 20:41: Total Bilirubin 0.70, Direct Bilirubin 0.24, AST 42 H, ALT 18, Alkaline Phosphatase 77, Total Protein 7.4, Albumin 2.6 L, Globulin 4.8 H 07/27/18 20:41: WBC 28.0 H, RBC 4.15 L, Hgb 11.4 L, Hct 35.2 L, MCV 84.8, MCH 27.5, MCHC 32.4, RDW 16.3 H, RDW Differential 50.3 H, Plt Count 390, MPV 10.0, Immature Gran % (Auto) 0.400, Neut % (Auto) 84.0 H, Lymph % (Auto) 6.1 L, [place] % (Auto) 9.3, Eos % (Auto) 0.1, Baso % (Auto) 0.1, Absolute Neuts (auto) 23.5 H, Absolute Lymphs (auto) 1.71, Total Counted Not Reportable, Differential Comment SCANNED, Diff Path Review May foll 07/27/18 20:41: Sodium 128 L, Potassium 5.0, Chloride 96 L, Carbon Dioxide 21.0, Anion Gap 11, BUN 35 H, Creatinine 4.74 H, Estim Creat Clear Calc 14.51, Est GFR (MDRD) Af Amer 12 L, Est GFR (MDRD) Non-Af 10 L, BUN/Creatinine Ratio 7.4 L, Glucose 131 H, Calcium 8.6, Total Bilirubin 0.60, AST 42 H, ALT 19, Alkaline Phosphatase 78, Total Protein 7.3, Albumin 2.6 L, Globulin 4.7 H, Albumin/Globulin Ratio 0.6 L 07/27/18 20:41: Troponin I < 0.015 07/27/18 21:55: Urine Color Yellow, Urine Clarity Cloudy, Urine pH 5.0, Ur Specific [place] 1.020, Urine Protein 30 H, Urine Glucose (UA) Normal, Urine Ketones Negative, Urine Occult Blood 50 H, Urine Nitrite Negative, Urine Bilirubin Negative, Urine Urobilinogen Normal, Ur Leukocyte Esterase 500 H, Urine RBC 5-10 SEEN, Urine WBC >100 SEEN, Ur Squamous Epith Cells 5-10 SEEN, Urine Bacteria RARE, Urine Mucus 0 SEEN 07/27/18 22:06: Lactic Acid 1.7 07/28/18 03:25: Sodium Cancelled, Potassium Cancelled, Chloride Cancelled, Carbon Dioxide Cancelled, Anion Gap Cancelled, BUN Cancelled, Creatinine Cancelled, Estim Creat Clear Calc Cancelled, Est GFR (MDRD) Af Amer Cancelled, Est GFR (MDRD) Non-Af Cancelled, BUN/Creatinine Ratio Cancelled, Glucose Cancelled, Calcium Cancelled 07/28/18 03:25: WBC 27.7 H, RBC 3.59 L, Hgb 10.2 L, Hct 31.1 L, MCV 86.6, MCH 28.4, MCHC 32.8, RDW 17.0 H, RDW Differential 52.5 H, Plt Count 292, MPV 10.4, Immature Gran % (Auto) 0.600, Neut % (Auto) 79.4 H, Lymph % (Auto) 8.0 L, [place] % (Auto) 11.2 H, Eos % (Auto) 0.7, Baso % (Auto) 0.1, Absolute Neuts (auto) 22.0 H, Absolute Lymphs (auto) 2.20, Total Counted Not Reportable, Differential Comment SCANNED, Diff Path Review July07/28/18 04:10: Sodium 136, Potassium 4.9, Chloride 103, Carbon Dioxide 20.0 L, Anion Gap 13, BUN 38 H, Creatinine 4.84 H, Estim Creat Clear Calc 14.21, Est GFR (MDRD) Af Amer 12 L, Est GFR (MDRD) Non-Af 10 L, BUN/Creatinine Ratio 7.9 L, Glucose 59 L, Calcium 7.4 L 07/28/18 04:10: TSH 1.24 07/28/18 06:34: POC Glucose 164 H Current Medications Acetaminophen (Tylenol) 650 mg PO Q6H PRN PRN PRN Reason: Pain/T>100.7 Last Admin: 07/28/18 07:38 Dose: 650 mg Albuterol Sulfate (Ventolin Aerosols) 2.5 mg INHALATION Q2H PRN PRN PRN Reason: SHORTNESS OF BREATH Albuterol/Ipratropium (Duoneb) 3 ml INHALATION Q4H.RT MAX Last Admin: 07/28/18 07:13 Dose: 3 ml Atorvastatin Calcium (Lipitor) 20 mg PO QHS [facility] Dextrose (D50w Syringe) 0 gm IV X1 PRN; Protocol PRN Reason: Hypoglycemia Glucagon () 1 mg IM .X1 PRN PRN Reason: Hypoglycemia Guaifenesin (Mucinex) 1,200 mg PO BID [facility] Heparin Sodium (Porcine) (Heparin Na) 5,000 unit SC Q8 [facility] Last Admin: 07/28/18 05:12 Dose: 5,000 unit Sodium Chloride () 250 mls @ 15 mls/hr IV .[id number] PRN PRN Reason: SALINE FLUSH Azithromycin 500 mg/ Dextrose 255 mls @ 250 mls/hr IV Q24@2200 [facility] Stop: 07/30/18 23:02 Ceftriaxone Sodium (Rocephin) 1 gm in 50 mls @ 100 mls/hr IV Q24@2200 [facility] Dextrose/Sodium Chloride () 1,000 mls @ 75 mls/hr IV .[id number] [facility] Stop: 07/28/18 18:29 Last Admin: 07/28/18 05:25 Dose: 75 mls/hr Levothyroxine Sodium (Synthroid) 150 mcg PO DAILY@0600 [facility] Last Admin: 07/28/18 05:12 Dose: 150 mcg Magnesium Hydroxide (Milk Of Magnesia) 30 ml PO DAILY PRN PRN PRN Reason: Constipation Methylprednisolone (Solu-Medrol) 40 mg IV Q8 [facility] Last Admin: 07/28/18 04:36 Dose: 40 mg Nicotine (Nicoderm Cq (Pbkc)) 21 mg TRANSDERM. DAILY [facility] Last Admin: 07/28/18 02:18 Dose: Not Given Pantoprazole Sodium (Protonix) 40 mg PO DAILY [facility] Sodium Chloride () 5 - 15 ml IV UD PRN PRN Reason: SALINE FLUSH Last Admin: 07/28/18 04:36 Dose: 15 ml Medical Necessity - Tobacco Use Smoking Status: Current every day smoker Tobacco Use: Cigarettes Assessment/Plan All Active Problems Community acquired pneumonia (Acute) SIRS (systemic inflammatory response syndrome) (Acute) Severe sepsis (Acute) Intractable nausea and vomiting (Acute) UTI (urinary tract infection) (Acute) Severe sepsis (Acute) Severe sepsis (Acute) Overdose (Acute) Unresponsive episode (Acute) Acute hypoxemic respiratory failure (Acute) Lower abdominal pain (Acute) Diarrhea (Acute) Nausea and vomiting (Acute) Pneumonia, bacterial (Acute) UTI (urinary tract infection) (Acute) Diarrhea (Acute) Abdominal pain (Acute) Diarrhea (Resolved) History of Clostridium difficile (Resolved) Acute exacerbation of chronic obstructive pulmonary disease (COPD) (Ruled-out) SIRS with Severe sepsis due to UTI (Ruled-out) Urinary tract infection (Ruled-out) 52-year-old female with previous past medical history of morbid obesity, type II DM, hypertension who comes in after a fall and has been managed as severe sepsis secondary to community-acquired pneumonia with hypotension 1. Severe sepsis secondary to community-acquired pneumonia, with hypoxia, improving Continue on ceftriaxone and azithromycin, leukocytosis is improving, no fevers, Repeat blood work in a.m. 2. JANESSA likely secondary to dehydration/sepsis, in a patient with previous normal renal function, on IV fluids Will continue on IV fluids, will get kidney and bladder ultrasound, repeat blood work in am 3. Hypertension, controlled, off lisinopril, pressures are better controlled now, continue to monitor 4. Type 2 DM, blood sugars are elevated, home oral medications held, will continue on insulin sliding scale with Accu-Cheks 5. Morbid obesity, AK 43.6, diet and exercise is recommended 6. Polysubstance use, urine tox positive for amphetamines and methamphetamines, advised to quit Continue nicotine replacement 7. Chronic back pain, will continue on conservative management with topical analgesics as scheduled Tylenol Will not give narcotics as patient is reportedly off narcotics 8. DVT PPx- Heparin SC Code Visit Inpatient E&M: [id number] Subs Hosp L2
--- NOTE | 2018-07-28 08:41 | NURSING ---
upon this RN entering room, otero catheter noted to out on bed with balloon still intact. pt states I don't know how it came out new otero placed.
[2018-07-28 09:31] LABS: Amphetamine Urine VISTA POSITIVE (<1000 ng/mL); Barbiturate Urine VISTA NEGATIVE (< 200 ng/mL); Benzodiazepine Urine VISTA NEGATIVE (< 200 ng/mL); Cocaine Urine VISTA NEGATIVE (< 300 ng/mL); Ecstacy Urine VISTA POSITIVE (< 500 ng/mL); Methadone Urine VISTA NEGATIVE (< 300 ng/mL); PCP Urine VISTA NEGATIVE (< 25 ng/mL); THC Urine VISTA NEGATIVE (< 50 ng/mL); Urine Sodium 12 mmol/L (Not Establ.); Vista UDS pH Range 5
[2018-07-28] MEDS: Pantoprazole Sodium 40 MG Tablet PO (09:37)
[2018-07-28] MEDS: Menthol/Lanolin/Calamine/Znox 113 GM Tube 1 APPLIC TOPICAL ×2 (09:37→21:11)
[2018-07-28] MEDS: guaiFENesin 1,200 MG Tablet 1200 MG PO ×2 (09:37→21:16)
[2018-07-28] MEDS: Nystatin Ointment 1 APPLIC TOPICAL ×2 (09:38→21:16)
--- NOTE | 2018-07-28 09:54 | PCM.CON.CC ---
Problem List (1) Community acquired pneumonia Status: Acute (2) Severe sepsis Status: Acute (3) Unresponsive episode Status: Acute (4) UTI (urinary tract infection) Status: Acute Qualifiers: Urinary tract infection type: acute cystitis Hematuria presence: without hematuria Qualified Code(s): N30.00 - Acute cystitis without hematuria (5) Chronic obstructive lung disease Status: Chronic Qualifiers: COPD type: emphysema Emphysema type: centrilobular Qualified Code(s): J43.2 - Centrilobular emphysema (6) Rheumatoid arthritis Status: Chronic (7) Chronic back pain Status: Chronic Qualifiers: Back pain location: back pain in unspecified location Back pain laterality: unspecified Qualified Code(s): M54.9 - Dorsalgia, unspecified; G89.29 - Other chronic pain (8) Drug-seeking behavior Status: Chronic (9) Diabetes mellitus, type II Status: Chronic Qualifiers: 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: without finishing 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 use Diabetes mellitus complication status: with neurologic complications Diabetes mellitus complication detail: with polyneuropathy Qualified Code(s): E11.42 - Type 2 diabetes mellitus with diabetic polyneuropathy (10) Psoriatic arthritis Status: Chronic (11) HLD (hyperlipidemia) Status: Chronic (12) Hypothyroidism Status: Chronic (13) Anxiety and depression Status: Chronic (14) GERD (gastroesophageal reflux disease) Status: Chronic Reason for Consult Date of Consultation: 07/28/18 Reason for Consultation: Severe sepsis History of Present Illness: The patient is a 52 year old F with past medical history listed below, who presented to [facility] on 07/28/2018 with various complaints. Patient is given multiple stories and originally had complained of right hip pain in the emergency room and an inability to urinate. Patient had reported a cough with some shortness of breath over the last week. There were reports the patient may have taken too much Neurontin, but this was denied by the patient. In the emergency department, patient was noted to have a right upper lobe infiltrate, white count of 20,000 and an elevated creatinine of 4.7. Urinalysis was consistent with possible infection, but lactate was within normal limits. Patient received Rocephin and azithromycin and a Almazan catheter was placed with significant output. Patient did receive 30 cc/kg of IV fluids and admitted to the intensive care unit. After arriving to the intensive care unit, no blood pressure medications were required. Patient was noted to be alert and oriented x2 and had complained intermittently of back pain. Patient had pulled out her Almazan with the balloon intact. Patient was noted to have significantly turbid urine. Patient did not reportedly coughing or having significant short of breath until patient received fluids. Patient has been receiving bronchodilators. Patient is not able to provide a reliable review of systems at this time. Patient does deny that she has been having any diarrhea, but nursing reports that her urine is turbid enough to appear as though it is diarrhea. Past Medical History Past Medical History (Chronic Problems): Chronic Problems Chronic obstructive lung disease (Chronic) Cigarette smoker (Chronic) Rheumatoid arthritis (Chronic) Leukocytosis (Chronic) likely due to recent high dose steroids Chronic back pain (Chronic) Obesity, morbid, BMI 50 or higher (Chronic) Drug-seeking behavior (Chronic) Diabetes mellitus, type II (Chronic) Psoriatic arthritis (Chronic) HLD (hyperlipidemia) (Chronic) Hypothyroidism (Chronic) Anxiety and depression (Chronic) GERD (gastroesophageal reflux disease) (Chronic) HTN (hypertension) (Chronic) UTI (urinary tract infection) (Chronic) Allergies fentanyl Allergy (Verified 07/27/18 20:12) Rash Iodinated Contrast- Oral and IV Dye [Iodinated Contrast Media - IV Dye] Allergy (Verified 07/27/18 20:12) Hives CAN BE PRE-MEDICATED levofloxacin [From Levaquin] Allergy (Verified 07/27/18 20:12) Rash nitrofurantoin [From Macrobid] Allergy (Verified 07/27/18 20:12) Rash Sulfa (Sulfonamide Antibiotics) Allergy (Verified 07/27/18 20:12) Itching Home Medications: Ambulatory Orders Medication Instructions Recorded Atorvastatin Calcium [Lipitor] 20 mg PO QHS 08/28/15 Duloxetine HCl 120 mg PO DAILY 08/28/15 Levothyroxine [Synthroid] 150 mcg PO DAILY 08/28/15 busPIRone [Buspar] 30 mg PO BID #0 11/08/15 Albuterol Inhaler [Ventolin Hfa] 1 - 2 puff INHALATION Q4H PRN PRN 11/10/15 #1 inhaler Pantoprazole Sodium 40 mg PO DAILY 06/01/16 Lisinopril [Zestril] 10 mg PO DAILY 06/28/16 Quetiapine Fumarate [Seroquel] 200 mg PO QHS 06/28/16 Gabapentin [Neurontin] 800 mg PO .COMPLEX 01/17/17 Glimepiride [Amaryl] 4 mg PO DAILY 02/23/17 Bupropion HCl [Bupropion Xl] 300 mg PO DAILY 06/05/18 Cyclobenzaprine [Flexeril] 5 mg PO .COMPLEX 06/05/18 Doxepin HCl 50 - 100 mg PO QHS PRN 06/05/18 Empagliflozin [Jardiance] 10 mg PO DAILY 06/05/18 Hydroxychloroquine [Plaquenil] 300 mg PO DAILYCM 06/05/18 Quetiapine Fumarate [Seroquel] 25 mg PO BID PRN 06/05/18 Surgical History: cholecystectomy, gastric bypass, - - Multiple back surgeries, ?6 Psychiatric History: Anxiety, Depression RESIDENTIAL CARPENTER History: No pertinent RESIDENTIAL CARPENTER history Smoking Status: Current every day smoker Tobacco Use: Cigarettes Alcohol: Occasional - *Family History Paternal History Items: Cancer - Lung CA, tobacco use. Offspring History Items: - - Obesity Maternal History Items: Stroke Review of Systems Unable to obtain accurate/complete ROS d/t: Mental status Patient Problems: Active and Suspected Problems Community acquired pneumonia (Acute) Objective: Chest x-ray was personally reviewed and does show a right upper lobe infiltrate. - Physical Exam General: Alert, Cooperative, No apparent distress, - - Morbidly obese. Oriented x2 only. HEENT: Atraumatic, PERRLA, EOMI, Normocephalic, - - Supplemental oxygen in place. No scleral icterus or injection noted. Oral: Moist Mucosa, No Gingival or Mucosal Lesions/ Ulcerations Neck: Supple, No Nodes, Trachea Midline, JVD, Right Lungs: No rales, Diminished, Rhonchi - Right greater than left, Wheezes - Sporadic Cardiovascular: Regular rate, Regular Rhythm, Normal S1, Normal S2, No murmurs, No rub noted, No Gallop Abdomen: Bowel Sounds Present, Soft, Non Tender, Non-Distended, Obese Extremities: No clubbing, No cyanosis, Capillary Refill Less than 3 Seconds, Edema Skin: No breakdown Musculoskeletal: No Tenderness to Palpation of Joints or Extremities Lymphatic: No Cervical, Supraclavicular, or Inguinal Adenopathy Neurological: Cranial nerves II-XII grossly intact, Neuro grossly intact, Motor Exam 5/5 strength throughout Psych/Mental Status: Anxious, Impulsive, Restless Vital Signs Temp Pulse Resp BP Pulse Ox 37.7 C H 83 20 H 113/62 94 07/28/18 09:00 07/28/18 09:00 07/28/18 09:00 07/28/18 09:00 07/28/18 09:00 Oxygen Flow Rate (L/min) 3 Oxygen Delivery Method Nasal Cannula Weight: 134 kg Body Mass Index (BMI) 43.6 Finger Stick Blood Glucose 294 Intake and Output for Last 24 Hours 07/26/18 07/27/18 07/28/18 23:59 23:59 23:59 Intake Total 4500 / 4500 Output Total 150 / 150 Balance 4350 / 4350 Microbiology Past 72 Hours 07/27/18 21:55 Legionella Antigen - Final Urine Catheter - Almazan 07/27/18 21:55 Streptococcus pneumoniae Antigen (M - Final Urine Catheter - Almazan Laboratory Tests Past 24 Hrs 07/27/18 07/27/18 07/27/18 20:41 20:41 20:41 WBC 28.0 H RBC 4.15 L Hgb 11.4 L Hct 35.2 L MCV 84.8 MCH 27.5 MCHC 32.4 RDW 16.3 H RDW Differential 50.3 H Plt Count 390 MPV 10.0 Immature Gran % (Auto) 0.400 Neut % (Auto) 84.0 H Lymph % (Auto) 6.1 L [place] % (Auto) 9.3 Eos % (Auto) 0.1 Baso % (Auto) 0.1 Absolute Neuts (auto) 23.5 H Absolute Lymphs (auto) 1.71 Total Counted Not Reportable Differential Comment SCANNED Diff Path Review May foll Sodium 128 L Potassium 5.0 Chloride 96 L Carbon Dioxide 21.0 Anion Gap 11 BUN 35 H Creatinine 4.74 H Estim Creat Clear Calc 14.51 Est GFR (MDRD) Af Amer 12 L Est GFR (MDRD) Non-Af 10 L BUN/Creatinine Ratio 7.4 L Glucose 131 H Lactic Acid Calcium 8.6 Total Bilirubin 0.70 0.60 Direct Bilirubin 0.24 AST 42 H 42 H ALT 18 19 Alkaline Phosphatase 77 78 Troponin I Total Protein 7.4 7.3 Albumin 2.6 L 2.6 L Globulin 4.8 H 4.7 H Albumin/Globulin Ratio 0.6 L TSH Urine Color Urine Clarity Urine pH Ur Specific [place] Urine Protein Urine Glucose (UA) Urine Ketones Urine Occult Blood Urine Nitrite Urine Bilirubin Urine Urobilinogen Ur Leukocyte Esterase Urine RBC Urine WBC Ur Squamous Epith Cells Urine Bacteria Urine Mucus Ur Random Sodium Urine Creatinine Urine Opiates Screen Urine Methadone Screen Ur Barbiturates Screen Ur Phencyclidine Scrn Ur Amphetamines Screen U Methamphetamin-MDMA U Benzodiazepines Scrn Urine Cocaine Screen U Cannabinoids Screen Ur Drug Screen Comment 07/27/18 07/27/18 07/27/18 20:41 21:55 22:06 WBC RBC Hgb Hct MCV MCH MCHC RDW RDW Differential Plt Count MPV Immature Gran % (Auto) Neut % (Auto) Lymph % (Auto) Union % (Auto) Eos % (Auto) Baso % (Auto) Absolute Neuts (auto) Absolute Lymphs (auto) Total Counted Differential Comment Diff Path Review Sodium Potassium Chloride Carbon Dioxide Anion Gap BUN Creatinine Estim Creat Clear Calc Est GFR (MDRD) Af Amer Est GFR (MDRD) Non-Af BUN/Creatinine Ratio Glucose Lactic Acid 1.7 Calcium Total Bilirubin Direct Bilirubin AST ALT Alkaline Phosphatase Troponin I < 0.015 Total Protein Albumin Globulin Albumin/Globulin Ratio TSH Urine Color Yellow Urine Clarity Cloudy Urine pH 5.0 Ur Specific [place] 1.020 Urine Protein 30 H Urine Glucose (UA) Normal Urine Ketones Negative Urine Occult Blood 50 H Urine Nitrite Negative Urine Bilirubin Negative Urine Urobilinogen Normal Ur Leukocyte Esterase 500 H Urine RBC 5-10 SEEN Urine WBC >100 SEEN Ur Squamous Epith Cells 5-10 SEEN Urine Bacteria RARE Urine Mucus 0 SEEN Ur Random Sodium Urine Creatinine Urine Opiates Screen Urine Methadone Screen Ur Barbiturates Screen Ur Phencyclidine Scrn Ur Amphetamines Screen U Methamphetamin-MDMA U Benzodiazepines Scrn Urine Cocaine Screen U Cannabinoids Screen Ur Drug Screen Comment 07/28/18 07/28/18 07/28/18 03:25 03:25 04:10 WBC 27.7 H RBC 3.59 L Hgb 10.2 L Hct 31.1 L MCV 86.6 MCH 28.4 MCHC 32.8 RDW 17.0 H RDW Differential 52.5 H Plt Count 292 MPV 10.4 Immature Gran % (Auto) 0.600 Neut % (Auto) 79.4 H Lymph % (Auto) 8.0 L Union % (Auto) 11.2 H Eos % (Auto) 0.7 Baso % (Auto) 0.1 Absolute Neuts (auto) 22.0 H Absolute Lymphs (auto) 2.20 Total Counted Not Reportable Differential Comment SCANNED Diff Path Review May foll Sodium Cancelled 136 Potassium Cancelled 4.9 Chloride Cancelled 103 Carbon Dioxide Cancelled 20.0 L Anion Gap Cancelled 13 BUN Cancelled 38 H Creatinine Cancelled 4.84 H Estim Creat Clear Calc Cancelled 14.21 Est GFR (MDRD) Af Amer Cancelled 12 L Est GFR (MDRD) Non-Af Cancelled 10 L BUN/Creatinine Ratio Cancelled 7.9 L Glucose Cancelled 59 L Lactic Acid Calcium Cancelled 7.4 L Total Bilirubin Direct Bilirubin AST ALT Alkaline Phosphatase Troponin I Total Protein Albumin Globulin Albumin/Globulin Ratio TSH Urine Color Urine Clarity Urine pH Ur Specific [place] Urine Protein Urine Glucose (UA) Urine Ketones Urine Occult Blood Urine Nitrite Urine Bilirubin Urine Urobilinogen Ur Leukocyte Esterase Urine RBC Urine WBC Ur Squamous Epith Cells Urine Bacteria Urine Mucus Ur Random Sodium Urine Creatinine Urine Opiates Screen Urine Methadone Screen Ur Barbiturates Screen Ur Phencyclidine Scrn Ur Amphetamines Screen U Methamphetamin-MDMA U Benzodiazepines Scrn Urine Cocaine Screen U Cannabinoids Screen Ur Drug Screen Comment 07/28/18 07/28/18 07/28/18 04:10 08:55 08:55 WBC RBC Hgb Hct MCV MCH MCHC RDW RDW Differential Plt Count MPV Immature Gran % (Auto) Neut % (Auto) Lymph % (Auto) Union % (Auto) Eos % (Auto) Baso % (Auto) Absolute Neuts (auto) Absolute Lymphs (auto) Total Counted Differential Comment Diff Path Review Sodium Potassium Chloride Carbon Dioxide Anion Gap BUN Creatinine Estim Creat Clear Calc Est GFR (MDRD) Af Amer Est GFR (MDRD) Non-Af BUN/Creatinine Ratio Glucose Lactic Acid Calcium Total Bilirubin Direct Bilirubin AST ALT Alkaline Phosphatase Troponin I Total Protein Albumin Globulin Albumin/Globulin Ratio TSH 1.24 Urine Color Urine Clarity Urine pH Ur Specific [place] Urine Protein Urine Glucose (UA) Urine Ketones Urine Occult Blood Urine Nitrite Urine Bilirubin Urine Urobilinogen Ur Leukocyte Esterase Urine RBC Urine WBC Ur Squamous Epith Cells Urine Bacteria Urine Mucus Ur Random Sodium Urine Creatinine 172.00 Urine Opiates Screen NEGATIVE Urine Methadone Screen NEGATIVE Ur Barbiturates Screen NEGATIVE Ur Phencyclidine Scrn NEGATIVE Ur Amphetamines Screen POSITIVE H U Methamphetamin-MDMA POSITIVE H U Benzodiazepines Scrn NEGATIVE Urine Cocaine Screen NEGATIVE U Cannabinoids Screen NEGATIVE Ur Drug Screen Comment 07/28/18 08:55 WBC RBC Hgb Hct MCV MCH MCHC RDW RDW Differential Plt Count MPV Immature Gran % (Auto) Neut % (Auto) Lymph % (Auto) [place] % (Auto) Eos % (Auto) Baso % (Auto) Absolute Neuts (auto) Absolute Lymphs (auto) Total Counted Differential Comment Diff Path Review Sodium Potassium Chloride Carbon Dioxide Anion Gap BUN Creatinine Estim Creat Clear Calc Est GFR (MDRD) Af Amer Est GFR (MDRD) Non-Af BUN/Creatinine Ratio Glucose Lactic Acid Calcium Total Bilirubin Direct Bilirubin AST ALT Alkaline Phosphatase Troponin I Total Protein Albumin Globulin Albumin/Globulin Ratio TSH Urine Color Urine Clarity Urine pH Ur Specific [place] Urine Protein Urine Glucose (UA) Urine Ketones Urine Occult Blood Urine Nitrite Urine Bilirubin Urine Urobilinogen Ur Leukocyte Esterase Urine RBC Urine WBC Ur Squamous Epith Cells Urine Bacteria Urine Mucus Ur Random Sodium 12 Urine Creatinine Urine Opiates Screen Urine Methadone Screen Ur Barbiturates Screen Ur Phencyclidine Scrn Ur Amphetamines Screen U Methamphetamin-MDMA U Benzodiazepines Scrn Urine Cocaine Screen U Cannabinoids Screen Ur Drug Screen Comment POC Glucose 07/28/18 06:34 POC Glucose 164 H Clinical Impression(s) from Imaging Studies Chest X-Ray 07/27/18 21:07 IMPRESSION: Right upper lobe infiltrate. Electronically Signed: Wil Harrison DO at 21:35 EDT Tel [phone], Service support , Hip/Pelvis X-Ray 07/27/18 22:39 IMPRESSION: Normal x-ray examination of the pelvis and hip. Electronically Signed: Wil Harirson DO at 22:57 EDT Tel [phone], Service support , Assessment/Plan Active and Suspected Problems Community acquired pneumonia (Acute) RECOMMENDATIONS: 1. Hold on further fluid resuscitation 2. Continue empiric antibiotics 3. Aggressive pulmonary toileting 4. Wean oxygen as tolerated IMPRESSIONS: 1. Severe sepsis with multiple possible sources Patient does have urine that appears to be consistent with a urinary tract infection. Patient also has a right upper lobe infiltrate distant with a community-acquired pneumonia. Patient has had multiple infections previously and has a leukocytosis with hypotension on presentation. Patient does have significant rhonchi on lung exam, so would not administer additional fluids at this time. Continue with antibiotics. 2. Acute kidney injury Unclear etiology. Patient may have a prerenal etiology secondary to severe sepsis. Patient also had significant urinary retention reported by the ER staff. Patient's lisinopril should be held. Blood pressure support. Avoid nephrotoxic medications. We will continue to monitor. 3. Acute encephalopathy, possibly toxic Patient with multiple possible etiologies for underlying issues. Patient appears to be improving this morning, so psychiatric meds can be reinitiated. Would continue to hold Plaquenil for now. Continue with delirium protocol. 4. Acute hypoxic respiratory insufficiency Clinical suspicion for underlying pneumonia that may blossom after fluid resuscitation. Could obtain a chest x-ray tomorrow. BiPAP rescue if necessary overnight. Patient does have a smoking history, so underlying COPD cannot be excluded. 5. Possible recent falls/GERD/anxiety/neuropathy/morbid obesity Complicates care, management, recovery and prognosis. Initiate fall risk precautions. Code Visit Inpatient E&M: 38817 Init Hosp L3
[2018-07-28] MEDS: buPROPion (XL) 300 MG TABLET.XL PO (12:02)
[2018-07-28] MEDS: DULoxetine Hcl 60 MG Capsule 120 MG PO (12:02)
[2018-07-28] MEDS: busPIRone 15 MG TABLET 30 MG PO ×2 (12:02→21:13)
--- NOTE | 2018-07-28 12:05 | NURSING ---
scanner issues during med pass. IT notified. tried a second scanner with issues as well. verified patient and medications with Brittny Zepeda RN.
[2018-07-28 12:10] LABS: Bedside Glucose 361 mg/dL (70-110)
[2018-07-28 12:42] LABS: Anion Gap 12 (5-15); BUN 40 mg/dL (7-18); BUN/Creat Ratio 9.3 RATIO (10-20); Calcium,Total 7.9 mg/dL (8.5-10.1); Chloride 102 mmol/L (98-107); Creatinine, Serum 4.29 mg/dL (0.55-1.02); EST Glomerular Filtration Rate 12 mL/min (>60); Est Glom Filt Rate - Afr Amer 14 mL/min (>60); Estimated Creatinine Clearance 16.03 ml/min; Glucose 353 mg/dL (74-106); Potassium 4.9 mmol/L (3.5-5.1); Sodium Level 132 mmol/L (136-145)
--- NOTE | 2018-07-28 13:29 | NURSING ---
CALLED RX TO VERIFY NEURONTIN DOSE & LAST FILLED. CONFIRMED THAT PT TAKES NEURONTIN TID, 1600 MG QAM, 1200 MG @ 1400, 800 MG QHS.
--- NOTE | 2018-07-28 13:53 | CPS ---
encouraged use of PEP
--- NOTE | 2018-07-28 14:17 | CASEMGMT ---
SW attempted to talk with patient. She was sleeping. She did respond to SW calling her name. However, she could not stay awake. Kaitlin ZUNIGA MSW
[2018-07-28 14:40] LABS: Pathologist Review Reviewed
[2018-07-28 14:41] LABS: Pathologist Review Reviewed
[2018-07-28] MEDS: Gabapentin 600 MG Tablet 1200 MG PO (14:55)
[2018-07-28] MEDS: Acetaminophen 500 MG Tablet 1000 MG PO ×2 (14:55→21:12)
[2018-07-28] MEDS: 0.9% Normal Saline 1,000 ML 100 ML IV (15:01)
[2018-07-28 17:00] LABS: Bedside Glucose 253 mg/dL (70-110)
[2018-07-28] MEDS: Insulin Lispro 100 UNIT/ML INSULN.PEN SQ ×2 (17:55→21:21)
[2018-07-28] MEDS: Atorvastatin Calcium 20 MG Tablet PO (21:13)
[2018-07-28] MEDS: QUEtiapine 100 MG Tablet 200 MG PO (21:14)
[2018-07-28] MEDS: Gabapentin 800 MG Tablet PO (21:14)
[2018-07-28] MEDS: Ceftriaxone 1 GM/50 ML BAG IV (21:15)
--- NOTE | 2018-07-28 22:16 | PCM.CONS.R ---
Consultation - Renal 07/28/18 PCP/ Referring MD: Requesting physician: Meena Bae MD Primary care physician: Fredy Walsh MD Reason for Consultation:: JANESSA - History of Present Illness History of Present Illness: The patient is a 52 year old obese F with a significant history of frequent UTI's, diabetes mellitus, hypertension, rheumatic arthritis; psoriatic arthritis; hypothyroidism; and mental health disease who was brought to the emergency department by the paramedics for falling at home. Patient apparently complained of right hip pain following her fall however pt is a poor historian, disoriented, somnolent to obtain any meaningful history. She was found to be in acute renal failure with sepsis syndrome. She initially had poor urine output with hypotensive shock. CXR revealed a right upper lobe infiltrate. She was pancultured, resp panel pending. Denied SOB, CP. She has a history of smoking with COPD. Stool cx sent for loose BM. Tox screen was remarkable for amphetamine. She had leukocyte of 28,000; sodium of 128; and severely elevated creatinine of 4.74.Baseline creatinine 0.9 from July 2017. She was initially admitted to ICU then transferred to [facility] floor this afternoon. - Allergies Allergies: Allergies fentanyl Allergy (Verified 07/27/18 20:12) Rash Iodinated Contrast- Oral and IV Dye [Iodinated Contrast Media - IV Dye] Allergy (Verified 07/27/18 20:12) Hives CAN BE PRE-MEDICATED levofloxacin [From Levaquin] Allergy (Verified 07/27/18 20:12) Rash nitrofurantoin [From Macrobid] Allergy (Verified 07/27/18 20:12) Rash Sulfa (Sulfonamide Antibiotics) Allergy (Verified 07/27/18 20:12) Itching - Current Medications Current Medications: Current Medications Acetaminophen (Tylenol) 1,000 mg PO TID MAX Last Admin: 07/28/18 21:12 Dose: 1,000 mg Albuterol Sulfate (Ventolin Aerosols) 2.5 mg INHALATION Q2H PRN PRN PRN Reason: SHORTNESS OF BREATH Albuterol/Ipratropium (Duoneb) 3 ml INHALATION Q4H.RT MAX Last Admin: 07/28/18 19:09 Dose: 3 ml Atorvastatin Calcium (Lipitor) 20 mg PO QHS MAX Last Admin: 07/28/18 21:13 Dose: 20 mg Bupropion HCl (Wellbutrin Xl) 300 mg PO DAILY [facility] Last Admin: 07/28/18 12:02 Dose: 300 mg Buspirone HCl (Buspar) 30 mg PO BID [facility] Last Admin: 07/28/18 21:13 Dose: 30 mg Calamine/Phenol (Calmoseptine Ointment) 1 applic TOPICAL BID [facility]; Protocol Last Admin: 07/28/18 21:11 Dose: 1 applicatio Cyclobenzaprine HCl (Flexeril) 10 mg PO , [facility] Last Admin: 07/28/18 21:16 Dose: 10 mg Cyclobenzaprine HCl (Flexeril) 5 mg PO DAILY@1200 [facility] Last Admin: 07/28/18 12:02 Dose: 5 mg Dextrose (D50w Syringe) 0 gm IV X1 PRN; Protocol PRN Reason: Hypoglycemia Duloxetine HCl (Cymbalta) 120 mg PO DAILY [facility] Last Admin: 07/28/18 12:02 Dose: 120 mg Gabapentin (Neurontin) 1,600 mg PO 0600 [facility] Gabapentin (Neurontin) 800 mg PO QHS [facility] Last Admin: 07/28/18 21:14 Dose: 800 mg Gabapentin (Neurontin) 1,200 mg PO 1400 [facility] Last Admin: 07/28/18 14:55 Dose: 1,200 mg Glucagon () 1 mg IM .X1 PRN PRN Reason: Hypoglycemia Guaifenesin (Mucinex) 1,200 mg PO BID [facility] Last Admin: 07/28/18 21:16 Dose: 1,200 mg Heparin Sodium (Porcine) (Heparin Na) 5,000 unit SC Q8 [facility] Last Admin: 07/28/18 21:13 Dose: 5,000 unit Sodium Chloride () 250 mls @ 15 mls/hr IV .[id number] PRN PRN Reason: SALINE FLUSH Azithromycin 500 mg/ Dextrose 255 mls @ 250 mls/hr IV Q24@2200 [facility] Stop: 07/30/18 23:02 Ceftriaxone Sodium (Rocephin) 1 gm in 50 mls @ 100 mls/hr IV Q24@2200 [facility] Last Admin: 07/28/18 21:15 Dose: 100 mls/hr Sodium Chloride () 1,000 mls @ 100 mls/hr IV .Q10H [facility] Last Admin: 07/28/18 15:01 Dose: 100 mls/hr Sodium Chloride () 1,000 mls @ 999 mls/hr IV .Q1H1M [facility] Stop: 07/29/18 00:10 Insulin Human Lispro (Humalog Kwikpen (Bkc)) 0 unit SQ ACHS [facility]; Protocol Last Admin: 07/28/18 21:21 Dose: 6 units Levothyroxine Sodium (Synthroid) 150 mcg PO DAILY@0600 [facility] Last Admin: 07/28/18 05:12 Dose: 150 mcg Lidocaine (Lidoderm Patch) 2 patch TOPICAL DAILY [facility]; Protocol Magnesium Hydroxide (Milk Of Magnesia) 30 ml PO DAILY PRN PRN PRN Reason: Constipation Menthol (Bengay Vanishing Scent) 1 applic TOPICAL 4X/DAY PRN PRN PRN Reason: PAIN Last Admin: 07/28/18 19:37 Dose: 1 applic Methylprednisolone (Solu-Medrol) 40 mg IV Q8 [facility] Last Admin: 07/28/18 21:13 Dose: 40 mg Nicotine (Nicoderm Cq (Pbkc)) 21 mg TRANSDERM. DAILY [facility] Last Admin: 07/28/18 09:37 Dose: 21 mg Nystatin (Mycostatin) 1 applic TOPICAL BID [facility]; Protocol Last Admin: 07/28/18 21:16 Dose: 1 applicatio Pantoprazole Sodium (Protonix) 40 mg PO DAILY [facility] Last Admin: 07/28/18 09:37 Dose: 40 mg Quetiapine Fumarate (Seroquel) 200 mg PO QHS [facility] Last Admin: 07/28/18 21:14 Dose: 200 mg Sodium Chloride () 5 - 15 ml IV UD PRN PRN Reason: SALINE FLUSH Last Admin: 07/28/18 04:36 Dose: 15 ml - Past Medical History Past Medical History (Chronic Problems): Chronic Problems Chronic obstructive lung disease (Chronic) Cigarette smoker (Chronic) Rheumatoid arthritis (Chronic) Leukocytosis (Chronic) likely due to recent high dose steroids Chronic back pain (Chronic) Obesity, morbid, BMI 50 or higher (Chronic) Drug-seeking behavior (Chronic) Diabetes mellitus, type II (Chronic) Psoriatic arthritis (Chronic) HLD (hyperlipidemia) (Chronic) Hypothyroidism (Chronic) Anxiety and depression (Chronic) GERD (gastroesophageal reflux disease) (Chronic) HTN (hypertension) (Chronic) UTI (urinary tract infection) (Chronic) - Past Surgical History Surgical History: cholecystectomy, gastric bypass, - - Multiple back surgeries, ?6 - Social History Smoking Status: Current every day smoker Alcohol: Occasional - Family History Paternal History Items: Cancer - Lung CA, tobacco use. Offspring History Items: - - Obesity Maternal History Items: Stroke Review of Systems Constitutional: Reports: Anorexia, Weakness HEENT: Denies: Head Aches Cardiovascular: Denies: Chest Pain, Edema, Syncope Respiratory: Reports: Cough Gastrointestinal: Reports: Abdominal Pain, -. Denies: Nausea, Vomiting Skin: Denies: Rash Unable to obtain accurate/complete ROS d/t: poor historian, lethargic Patient Problems: Active and Suspected Problems Community acquired pneumonia (Acute) - Physical Exam General: Disoriented, Lethargic Oral: Dry Mucosa Neck: Supple Lungs: Rhonchi, - - upper airway secretions Cardiovascular: Regular rate Abdomen: Bowel Sounds Present, Soft, Non Tender, Non-Distended, Obese Extremities: Edema Skin: No rashes Musculoskeletal: No Tenderness to Palpation of Joints or Extremities, No Muscle Wasting Neurological: - - unable to assess, pt not following commands, lethargic Psych/Mental Status: Delusions, - - somnolent, poor historian, disoriented Vital Signs Temp Pulse Resp BP Pulse Ox 97.7 F L 77 18 84/57 L 94 07/28/18 21:00 07/28/18 21:00 07/28/18 21:00 07/28/18 21:00 07/28/18 21:00 Oxygen Flow Rate (L/min) 3 Oxygen Delivery Method Nasal Cannula Weight: 134 kg Body Mass Index (BMI) 43.6 Finger Stick Blood Glucose 294 Intake and Output for Last 24 Hours 07/26/18 07/27/18 07/28/18 23:59 23:59 23:59 Intake Total 5511 / 5511 Output Total 1650 / 1650 Balance 3861 / 3861 Microbiology Past 72 Hours 07/28/18 08:55 Enteric Bacteriology - Final Stool 07/27/18 21:55 Legionella Antigen - Final Urine Catheter - [place] 07/27/18 21:55 Streptococcus pneumoniae Antigen (M - Final Urine Catheter - [place] Laboratory Tests Past 24 Hrs 07/27/18 07/27/18 07/27/18 20:41 20:41 21:55 WBC 28.0 H RBC 4.15 L Hgb 11.4 L Hct 35.2 L MCV 84.8 MCH 27.5 MCHC 32.4 RDW 16.3 H RDW Differential 50.3 H Plt Count 390 MPV 10.0 Immature Gran % (Auto) 0.400 Neut % (Auto) 84.0 H Lymph % (Auto) 6.1 L Lanier % (Auto) 9.3 Eos % (Auto) 0.1 Baso % (Auto) 0.1 Absolute Neuts (auto) 23.5 H Absolute Lymphs (auto) 1.71 Total Counted Not Reportable Differential Comment SCANNED Diff Path Review Reviewed Sodium Potassium Chloride Carbon Dioxide Anion Gap BUN Creatinine Estim Creat Clear Calc Est GFR (MDRD) Af Amer Est GFR (MDRD) Non-Af BUN/Creatinine Ratio Glucose Lactic Acid Calcium Troponin I < 0.015 TSH Urine RBC 5-10 SEEN Urine WBC >100 SEEN Ur Squamous Epith Cells 5-10 SEEN Urine Bacteria RARE Urine Mucus 0 SEEN Ur Random Sodium Urine Creatinine Urine Opiates Screen Urine Methadone Screen Ur Barbiturates Screen Ur Phencyclidine Scrn Ur Amphetamines Screen U Methamphetamin-MDMA U Benzodiazepines Scrn Urine Cocaine Screen U Cannabinoids Screen Ur Drug Screen Comment 07/27/18 07/28/18 07/28/18 22:06 03:25 03:25 WBC 27.7 H RBC 3.59 L Hgb 10.2 L Hct 31.1 L MCV 86.6 MCH 28.4 MCHC 32.8 RDW 17.0 H RDW Differential 52.5 H Plt Count 292 MPV 10.4 Immature Gran % (Auto) 0.600 Neut % (Auto) 79.4 H Lymph % (Auto) 8.0 L Lanier % (Auto) 11.2 H Eos % (Auto) 0.7 Baso % (Auto) 0.1 Absolute Neuts (auto) 22.0 H Absolute Lymphs (auto) 2.20 Total Counted Not Reportable Differential Comment SCANNED Diff Path Review Reviewed Sodium Cancelled Potassium Cancelled Chloride Cancelled Carbon Dioxide Cancelled Anion Gap Cancelled BUN Cancelled Creatinine Cancelled Estim Creat Clear Calc Cancelled Est GFR (MDRD) Af Amer Cancelled Est GFR (MDRD) Non-Af Cancelled BUN/Creatinine Ratio Cancelled Glucose Cancelled Lactic Acid 1.7 Calcium Cancelled Troponin I TSH Urine RBC Urine WBC Ur Squamous Epith Cells Urine Bacteria Urine Mucus Ur Random Sodium Urine Creatinine Urine Opiates Screen Urine Methadone Screen Ur Barbiturates Screen Ur Phencyclidine Scrn Ur Amphetamines Screen U Methamphetamin-MDMA U Benzodiazepines Scrn Urine Cocaine Screen U Cannabinoids Screen Ur Drug Screen Comment 07/28/18 07/28/18 07/28/18 04:10 04:10 08:55 WBC RBC Hgb Hct MCV MCH MCHC RDW RDW Differential Plt Count MPV Immature Gran % (Auto) Neut % (Auto) Lymph % (Auto) Lanier % (Auto) Eos % (Auto) Baso % (Auto) Absolute Neuts (auto) Absolute Lymphs (auto) Total Counted Differential Comment Diff Path Review Sodium 136 Potassium 4.9 Chloride 103 Carbon Dioxide 20.0 L Anion Gap 13 BUN 38 H Creatinine 4.84 H Estim Creat Clear Calc 14.21 Est GFR (MDRD) Af Amer 12 L Est GFR (MDRD) Non-Af 10 L BUN/Creatinine Ratio 7.9 L Glucose 59 L Lactic Acid Calcium 7.4 L Troponin I TSH 1.24 Urine RBC Urine WBC Ur Squamous Epith Cells Urine Bacteria Urine Mucus Ur Random Sodium Urine Creatinine Urine Opiates Screen NEGATIVE Urine Methadone Screen NEGATIVE Ur Barbiturates Screen NEGATIVE Ur Phencyclidine Scrn NEGATIVE Ur Amphetamines Screen POSITIVE H U Methamphetamin-MDMA POSITIVE H U Benzodiazepines Scrn NEGATIVE Urine Cocaine Screen NEGATIVE U Cannabinoids Screen NEGATIVE Ur Drug Screen Comment 07/28/18 07/28/18 07/28/18 08:55 08:55 11:46 WBC RBC Hgb Hct MCV MCH MCHC RDW RDW Differential Plt Count MPV Immature Gran % (Auto) Neut % (Auto) Lymph % (Auto) Lanier % (Auto) Eos % (Auto) Baso % (Auto) Absolute Neuts (auto) Absolute Lymphs (auto) Total Counted Differential Comment Diff Path Review Sodium 132 L Potassium 4.9 Chloride 102 Carbon Dioxide 18.0 L Anion Gap 12 BUN 40 H Creatinine 4.29 H Estim Creat Clear Calc 16.03 Est GFR (MDRD) Af Amer 14 L Est GFR (MDRD) Non-Af 12 L BUN/Creatinine Ratio 9.3 L Glucose 353 H Lactic Acid Calcium 7.9 L Troponin I TSH Urine RBC Urine WBC Ur Squamous Epith Cells Urine Bacteria Urine Mucus Ur Random Sodium 12 Urine Creatinine 172.00 Urine Opiates Screen Urine Methadone Screen Ur Barbiturates Screen Ur Phencyclidine Scrn Ur Amphetamines Screen U Methamphetamin-MDMA U Benzodiazepines Scrn Urine Cocaine Screen U Cannabinoids Screen Ur Drug Screen Comment POC Glucose 07/28/18 07/28/18 07/28/18 16:50 11:51 06:34 POC Glucose 253 H 361 H 164 H Clinical Impression(s) from Imaging Studies Chest X-Ray 07/27/18 21:07 IMPRESSION: Right upper lobe infiltrate. Electronically Signed: Wil Harrison DO at 21:35 EDT Tel [phone], Service support , Hip/Pelvis X-Ray 07/27/18 22:39 IMPRESSION: Normal x-ray examination of the pelvis and hip. Electronically Signed: Wil Harrison DO at 22:57 EDT Tel [phone], Service support , Assessment/Plan All Active Problems Community acquired pneumonia (Acute) SIRS (systemic inflammatory response syndrome) (Acute) Severe sepsis (Acute) Intractable nausea and vomiting (Acute) UTI (urinary tract infection) (Acute) Severe sepsis (Acute) Severe sepsis (Acute) Overdose (Acute) Unresponsive episode (Acute) Acute hypoxemic respiratory failure (Acute) Lower abdominal pain (Acute) Diarrhea (Acute) Nausea and vomiting (Acute) Pneumonia, bacterial (Acute) UTI (urinary tract infection) (Acute) Diarrhea (Acute) Abdominal pain (Acute) Diarrhea (Resolved) History of Clostridium difficile (Resolved) Acute exacerbation of chronic obstructive pulmonary disease (COPD) (Ruled-out) SIRS with Severe sepsis due to UTI (Ruled-out) Urinary tract infection (Ruled-out) 1. Acute renal failure with FENA <1% suggestive of dehydration, hypotension, shock. Urine output improved. No need to initiate urgent dialysis at this time. 2. sepsis syndrome with hypotensive shock, pancultured 3. Polysubstance abuse 4. Encephalopathic 5. HTN BP low, support with fluids 6. DM2 stable 7. COPD with tobacco use history
--- NOTE | 2018-07-28 22:25 | CON.PCM_ITS ---
Consultation - Renal 07/28/18 PCP/ Referring MD: Requesting physician: Meena Bae MD Primary care physician: Fredy Walsh MD Reason for Consultation:: JANESSA - History of Present Illness History of Present Illness: The patient is a 52 year old obese F with a significant history of frequent UTI's, diabetes mellitus, hypertension, rheumatic arthritis; psoriatic arthritis; hypothyroidism; and mental health disease who was brought to the emergency department by the paramedics for falling at home. Patient apparently complained of right hip pain following her fall however pt is a poor historian, disoriented, somnolent to obtain any meaningful history. She was found to be in acute renal failure with sepsis syndrome. She initially had poor urine output with hypotensive shock. CXR revealed a right upper lobe infiltrate. She was pancultured, resp panel pending. Denied SOB, CP. She has a history of smoking with COPD. Stool cx sent for loose BM. Tox screen was remarkable for amphetamine. She had leukocyte of 28,000; sodium of 128; and severely elevated creatinine of 4.74.Baseline creatinine 0.9 from July 2017. She was initially admitted to ICU then transferred to [facility] floor this afternoon. - Allergies Allergies: Allergies fentanyl Allergy (Verified 07/27/18 20:12) Rash Iodinated Contrast- Oral and IV Dye [Iodinated Contrast Media - IV Dye] Allergy (Verified 07/27/18 20:12) Hives CAN BE PRE-MEDICATED levofloxacin [From Levaquin] Allergy (Verified 07/27/18 20:12) Rash nitrofurantoin [From Macrobid] Allergy (Verified 07/27/18 20:12) Rash Sulfa (Sulfonamide Antibiotics) Allergy (Verified 07/27/18 20:12) Itching - Current Medications Current Medications: Current Medications Acetaminophen (Tylenol) 1,000 mg PO TID MAX Last Admin: 07/28/18 21:12 Dose: 1,000 mg Albuterol Sulfate (Ventolin Aerosols) 2.5 mg INHALATION Q2H PRN PRN PRN Reason: SHORTNESS OF BREATH Albuterol/Ipratropium (Duoneb) 3 ml INHALATION Q4H.RT MAX Last Admin: 07/28/18 19:09 Dose: 3 ml Atorvastatin Calcium (Lipitor) 20 mg PO QHS MAX Last Admin: 07/28/18 21:13 Dose: 20 mg Bupropion HCl (Wellbutrin Xl) 300 mg PO DAILY [facility] Last Admin: 07/28/18 12:02 Dose: 300 mg Buspirone HCl (Buspar) 30 mg PO BID [facility] Last Admin: 07/28/18 21:13 Dose: 30 mg Calamine/Phenol (Calmoseptine Ointment) 1 applic TOPICAL BID [facility]; Protocol Last Admin: 07/28/18 21:11 Dose: 1 applicatio Cyclobenzaprine HCl (Flexeril) 10 mg PO , [facility] Last Admin: 07/28/18 21:16 Dose: 10 mg Cyclobenzaprine HCl (Flexeril) 5 mg PO DAILY@1200 [facility] Last Admin: 07/28/18 12:02 Dose: 5 mg Dextrose (D50w Syringe) 0 gm IV X1 PRN; Protocol PRN Reason: Hypoglycemia Duloxetine HCl (Cymbalta) 120 mg PO DAILY [facility] Last Admin: 07/28/18 12:02 Dose: 120 mg Gabapentin (Neurontin) 1,600 mg PO 0600 [facility] Gabapentin (Neurontin) 800 mg PO QHS [facility] Last Admin: 07/28/18 21:14 Dose: 800 mg Gabapentin (Neurontin) 1,200 mg PO 1400 [facility] Last Admin: 07/28/18 14:55 Dose: 1,200 mg Glucagon () 1 mg IM .X1 PRN PRN Reason: Hypoglycemia Guaifenesin (Mucinex) 1,200 mg PO BID [facility] Last Admin: 07/28/18 21:16 Dose: 1,200 mg Heparin Sodium (Porcine) (Heparin Na) 5,000 unit SC Q8 [facility] Last Admin: 07/28/18 21:13 Dose: 5,000 unit Sodium Chloride () 250 mls @ 15 mls/hr IV .[id number] PRN PRN Reason: SALINE FLUSH Azithromycin 500 mg/ Dextrose 255 mls @ 250 mls/hr IV Q24@2200 [facility] Stop: 07/30/18 23:02 Ceftriaxone Sodium (Rocephin) 1 gm in 50 mls @ 100 mls/hr IV Q24@2200 [facility] Last Admin: 07/28/18 21:15 Dose: 100 mls/hr Sodium Chloride () 1,000 mls @ 100 mls/hr IV .Q10H [facility] Last Admin: 07/28/18 15:01 Dose: 100 mls/hr Sodium Chloride () 1,000 mls @ 999 mls/hr IV .Q1H1M [facility] Stop: 07/29/18 00:10 Insulin Human Lispro (Humalog Kwikpen (Bkc)) 0 unit SQ ACHS [facility]; Protocol Last Admin: 07/28/18 21:21 Dose: 6 units Levothyroxine Sodium (Synthroid) 150 mcg PO DAILY@0600 [facility] Last Admin: 07/28/18 05:12 Dose: 150 mcg Lidocaine (Lidoderm Patch) 2 patch TOPICAL DAILY [facility]; Protocol Magnesium Hydroxide (Milk Of Magnesia) 30 ml PO DAILY PRN PRN PRN Reason: Constipation Menthol (Bengay Vanishing Scent) 1 applic TOPICAL 4X/DAY PRN PRN PRN Reason: PAIN Last Admin: 07/28/18 19:37 Dose: 1 applic Methylprednisolone (Solu-Medrol) 40 mg IV Q8 [facility] Last Admin: 07/28/18 21:13 Dose: 40 mg Nicotine (Nicoderm Cq (Pbkc)) 21 mg TRANSDERM. DAILY [facility] Last Admin: 07/28/18 09:37 Dose: 21 mg Nystatin (Mycostatin) 1 applic TOPICAL BID [facility]; Protocol Last Admin: 07/28/18 21:16 Dose: 1 applicatio Pantoprazole Sodium (Protonix) 40 mg PO DAILY [facility] [place] Last Admin: 07/28/18 09:37 Dose: 40 mg Quetiapine Fumarate (Seroquel) 200 mg PO QHS [facility] [place] Last Admin: 07/28/18 21:14 Dose: 200 mg Sodium Chloride () 5 - 15 ml IV UD PRN PRN Reason: SALINE FLUSH Last Admin: 07/28/18 04:36 Dose: 15 ml - Past Medical History Past Medical History (Chronic Problems): Chronic Problems Chronic obstructive lung disease (Chronic) Cigarette smoker (Chronic) Rheumatoid arthritis (Chronic) Leukocytosis (Chronic) likely due to recent high dose steroids Chronic back pain (Chronic) Obesity, morbid, BMI 50 or higher (Chronic) Drug-seeking behavior (Chronic) Diabetes mellitus, type II (Chronic) Psoriatic arthritis (Chronic) HLD (hyperlipidemia) (Chronic) Hypothyroidism (Chronic) Anxiety and depression (Chronic) GERD (gastroesophageal reflux disease) (Chronic) HTN (hypertension) (Chronic) UTI (urinary tract infection) (Chronic) - Past Surgical History Surgical History: cholecystectomy, gastric bypass, - - Multiple back surgeries, ?6 - Social History Smoking Status: Current every day smoker Alcohol: Occasional - Family History Paternal History Items: Cancer - Lung CA, tobacco use. Offspring History Items: - - Obesity Maternal History Items: Stroke Review of Systems Constitutional: Reports: Anorexia, Weakness HEENT: Denies: Head Aches Cardiovascular: Denies: Chest Pain, Edema, Syncope Respiratory: Reports: Cough Gastrointestinal: Reports: Abdominal Pain, -. Denies: Nausea, Vomiting Skin: Denies: Rash Unable to obtain accurate/complete ROS d/t: poor historian, lethargic Patient Problems: Active and Suspected Problems Community acquired pneumonia (Acute) - Physical Exam General: Disoriented, Lethargic Oral: Dry Mucosa Neck: Supple Lungs: Rhonchi, - - upper airway secretions Cardiovascular: Regular rate Abdomen: Bowel Sounds Present, Soft, Non Tender, Non-Distended, Obese Extremities: Edema Skin: No rashes Musculoskeletal: No Tenderness to Palpation of Joints or Extremities, No Muscle Wasting Neurological: - - unable to assess, pt not following commands, lethargic Psych/Mental Status: Delusions, - - somnolent, poor historian, disoriented Vital Signs Temp Pulse Resp BP Pulse Ox 97.7 F L 77 18 84/57 L 94 07/28/18 21:00 07/28/18 21:00 07/28/18 21:00 07/28/18 21:00 07/28/18 21:00 Oxygen Flow Rate (L/min) 3 Oxygen Delivery Method Nasal Cannula Weight: 134 kg Body Mass Index (BMI) 43.6 Finger Stick Blood Glucose 294 Intake and Output for Last 24 Hours 07/26/18 07/27/18 07/28/18 23:59 23:59 23:59 Intake Total 5511 / 5511 Output Total 1650 / 1650 Balance 3861 / 3861 Microbiology Past 72 Hours 07/28/18 08:55 Enteric Bacteriology - Final Stool 07/27/18 21:55 Legionella Antigen - Final Urine Catheter - [place] 07/27/18 21:55 Streptococcus pneumoniae Antigen (M - Final Urine Catheter - [facility] Laboratory Tests Past 24 Hrs 07/27/18 07/27/18 07/27/18 20:41 20:41 21:55 WBC 28.0 H RBC 4.15 L Hgb 11.4 L Hct 35.2 L MCV 84.8 MCH 27.5 MCHC 32.4 RDW 16.3 H RDW Differential 50.3 H Plt Count 390 MPV 10.0 Immature Gran % (Auto) 0.400 Neut % (Auto) 84.0 H Lymph % (Auto) 6.1 L Cherry % (Auto) 9.3 Eos % (Auto) 0.1 Baso % (Auto) 0.1 Absolute Neuts (auto) 23.5 H Absolute Lymphs (auto) 1.71 Total Counted Not Reportable Differential Comment SCANNED Diff Path Review Reviewed Sodium Potassium Chloride Carbon Dioxide Anion Gap BUN Creatinine Estim Creat Clear Calc Est GFR (MDRD) Af Amer Est GFR (MDRD) Non-Af BUN/Creatinine Ratio Glucose Lactic Acid Calcium Troponin I < 0.015 TSH Urine RBC 5-10 SEEN Urine WBC >100 SEEN Ur Squamous Epith Cells 5-10 SEEN Urine Bacteria RARE Urine Mucus 0 SEEN Ur Random Sodium Urine Creatinine Urine Opiates Screen Urine Methadone Screen Ur Barbiturates Screen Ur Phencyclidine Scrn Ur Amphetamines Screen U Methamphetamin-MDMA U Benzodiazepines Scrn Urine Cocaine Screen U Cannabinoids Screen Ur Drug Screen Comment 07/27/18 07/28/18 07/28/18 22:06 03:25 03:25 WBC 27.7 H RBC 3.59 L Hgb 10.2 L Hct 31.1 L MCV 86.6 MCH 28.4 MCHC 32.8 RDW 17.0 H RDW Differential 52.5 H Plt Count 292 MPV 10.4 Immature Gran % (Auto) 0.600 Neut % (Auto) 79.4 H Lymph % (Auto) 8.0 L Cherry % (Auto) 11.2 H Eos % (Auto) 0.7 Baso % (Auto) 0.1 Absolute Neuts (auto) 22.0 H Absolute Lymphs (auto) 2.20 Total Counted Not Reportable Differential Comment SCANNED Diff Path Review Reviewed Sodium Cancelled Potassium Cancelled Chloride Cancelled Carbon Dioxide Cancelled Anion Gap Cancelled BUN Cancelled Creatinine Cancelled Estim Creat Clear Calc Cancelled Est GFR (MDRD) Af Amer Cancelled Est GFR (MDRD) Non-Af Cancelled BUN/Creatinine Ratio Cancelled Glucose Cancelled Lactic Acid 1.7 Calcium Cancelled Troponin I TSH Urine RBC Urine WBC Ur Squamous Epith Cells Urine Bacteria Urine Mucus Ur Random Sodium Urine Creatinine Urine Opiates Screen Urine Methadone Screen Ur Barbiturates Screen Ur Phencyclidine Scrn Ur Amphetamines Screen U Methamphetamin-MDMA U Benzodiazepines Scrn Urine Cocaine Screen U Cannabinoids Screen Ur Drug Screen Comment 07/28/18 07/28/18 07/28/18 04:10 04:10 08:55 WBC RBC Hgb Hct MCV MCH MCHC RDW RDW Differential Plt Count MPV Immature Gran % (Auto) Neut % (Auto) Lymph % (Auto) Cherry % (Auto) Eos % (Auto) Baso % (Auto) Absolute Neuts (auto) Absolute Lymphs (auto) Total Counted Differential Comment Diff Path Review Sodium 136 Potassium 4.9 Chloride 103 Carbon Dioxide 20.0 L Anion Gap 13 BUN 38 H Creatinine 4.84 H Estim Creat Clear Calc 14.21 Est GFR (MDRD) Af Amer 12 L Est GFR (MDRD) Non-Af 10 L BUN/Creatinine Ratio 7.9 L Glucose 59 L Lactic Acid Calcium 7.4 L Troponin I TSH 1.24 Urine RBC Urine WBC Ur Squamous Epith Cells Urine Bacteria Urine Mucus Ur Random Sodium Urine Creatinine Urine Opiates Screen NEGATIVE Urine Methadone Screen NEGATIVE Ur Barbiturates Screen NEGATIVE Ur Phencyclidine Scrn NEGATIVE Ur Amphetamines Screen POSITIVE H U Methamphetamin-MDMA POSITIVE H U Benzodiazepines Scrn NEGATIVE Urine Cocaine Screen NEGATIVE U Cannabinoids Screen NEGATIVE Ur Drug Screen Comment 07/28/18 07/28/18 07/28/18 08:55 08:55 11:46 WBC RBC Hgb Hct MCV MCH MCHC RDW RDW Differential Plt Count MPV Immature Gran % (Auto) Neut % (Auto) Lymph % (Auto) Cherry % (Auto) Eos % (Auto) Baso % (Auto) Absolute Neuts (auto) Absolute Lymphs (auto) Total Counted Differential Comment Diff Path Review Sodium 132 L Potassium 4.9 Chloride 102 Carbon Dioxide 18.0 L Anion Gap 12 BUN 40 H Creatinine 4.29 H Estim Creat Clear Calc 16.03 Est GFR (MDRD) Af Amer 14 L Est GFR (MDRD) Non-Af 12 L BUN/Creatinine Ratio 9.3 L Glucose 353 H Lactic Acid Calcium 7.9 L Troponin I TSH Urine RBC Urine WBC Ur Squamous Epith Cells Urine Bacteria Urine Mucus Ur Random Sodium 12 Urine Creatinine 172.00 Urine Opiates Screen Urine Methadone Screen Ur Barbiturates Screen Ur Phencyclidine Scrn Ur Amphetamines Screen U Methamphetamin-MDMA U Benzodiazepines Scrn Urine Cocaine Screen U Cannabinoids Screen Ur Drug Screen Comment POC Glucose 07/28/18 07/28/18 07/28/18 16:50 11:51 06:34 POC Glucose 253 H 361 H 164 H Clinical Impression(s) from Imaging Studies Chest X-Ray 07/27/18 21:07 IMPRESSION: Right upper lobe infiltrate. Electronically Signed: Wil Harrison DO at 21:35 EDT Tel [phone], Service support , Hip/Pelvis X-Ray 07/27/18 22:39 IMPRESSION: Normal x-ray examination of the pelvis and hip. Electronically Signed: Wil Harrison DO at 22:57 EDT Tel [phone], Service support , Assessment/Plan All Active Problems Community acquired pneumonia (Acute) SIRS (systemic inflammatory response syndrome) (Acute) Severe sepsis (Acute) Intractable nausea and vomiting (Acute) UTI (urinary tract infection) (Acute) Severe sepsis (Acute) Severe sepsis (Acute) Overdose (Acute) Unresponsive episode (Acute) Acute hypoxemic respiratory failure (Acute) Lower abdominal pain (Acute) Diarrhea (Acute) Nausea and vomiting (Acute) Pneumonia, bacterial (Acute) UTI (urinary tract infection) (Acute) Diarrhea (Acute) Abdominal pain (Acute) Diarrhea (Resolved) History of Clostridium difficile (Resolved) Acute exacerbation of chronic obstructive pulmonary disease (COPD) (Ruled-out) SIRS with Severe sepsis due to UTI (Ruled-out) Urinary tract infection (Ruled-out) 1. Acute renal failure with FENA <1% suggestive of dehydration, hypotension, shock. Urine output improved. No need to initiate urgent dialysis at this time. 2. sepsis syndrome with hypotensive shock, pancultured 3. Polysubstance abuse 4. Encephalopathic 5. HTN BP low, support with fluids 6. DM2 stable 7. COPD with tobacco use history
[2018-07-28 22:46] LABS: Bedside Glucose 292 mg/dL (70-110)
[2018-07-29] VITALS (14 sets, daily range): BP systolic 84–112; BP diastolic 47–63; PULSE 72–92; RESP 13–20; TEMP 36.2–36.8; O2SAT 93–97
[2018-07-29] MEDS: Ipratropium/Albuterol Sulfate 3 ML AMPUL.NEB INHALATION ×3 (02:20→20:26)
[2018-07-29] MEDS: 0.9% Normal Saline 1,000 ML 100 ML IV ×2 (05:30→19:40)
[2018-07-29] MEDS: Heparin Injection (Vial) 5,000 UNIT/ML VIAL 5000 UNIT SC ×3 (05:42→21:03)
[2018-07-29] MEDS: Acetaminophen 500 MG Tablet 1000 MG PO ×3 (05:44→21:02)
[2018-07-29] MEDS: Levothyroxine 150 MCG Tablet PO (05:46)
[2018-07-29] MEDS: Gabapentin 800 MG Tablet 1600 MG PO (05:47)
[2018-07-29] MEDS: Insulin Lispro 100 UNIT/ML INSULN.PEN SQ ×4 (06:51→21:00)
[2018-07-29 06:55] LABS: Bedside Glucose 159 mg/dL (70-110)
[2018-07-29 07:39] LABS: Absolute Lymphocyte Count 0.71 X10^3/ul (0.83-4.51); Absolute Neutrophil Count 17.4 X10^3/uL (2.0-7.7); Hematocrit 29.5 % (37-47); Hemoglobin 9.4 g/dl (12.0-15.0); Lymphocyte # 0.71 X10^3/ul (4.0); Lymphocyte % 3.7 % (19-41); Mean Corp Hgb Conc 31.9 g/gl (32-36); Mean Corpuscular Hgb 27.2 pg (27.0-32.0); Mean Corpuscular Volume 85.5 fL (81-99); Mean Platelet Vol. 10.4 fl (6.2-12.0); Monocyte# 0.93 X10^3/uL; Monocyte% 4.9 % (0-10); Neutrophil # 17.39 X10^3/uL (2.7-7.7); Neutrophil % 90.9 % (47-70); Platelet Count 362 K/mm3 (150-450); RBC Distribution Width CV 16.4 % (11.6-14.6); RBC Distribution Width SD 49.8 fl (35.1-43.9); Red Blood Count 3.45 M/mm3 (4.2-5.4); White Blood Count 19.1 K/mm3 (4.4-11.0)
[2018-07-29 07:41] LABS: POSITIVE COUNT NO; POSITIVE DIFFERENTIAL NO; POSITIVE MORPHOLOGY NO
[2018-07-29 07:56] LABS: Anion Gap 8 (5-15); BUN 40 mg/dL (7-18); BUN/Creat Ratio 19.4 RATIO (10-20); Calcium,Total 7.9 mg/dL (8.5-10.1); Chloride 110 mmol/L (98-107); Creatinine, Serum 2.06 mg/dL (0.55-1.02); EST Glomerular Filtration Rate 27 mL/min (>60); Est Glom Filt Rate - Afr Amer 32 mL/min (>60); Estimated Creatinine Clearance 33.39 ml/min; Glucose 158 mg/dL (74-106); Potassium 4.4 mmol/L (3.5-5.1); Sodium Level 141 mmol/L (136-145)
--- NOTE | 2018-07-29 08:31 | PN_ITS ---
Subjective: Patient transferred out of the intensive care unit yesterday. Patient did have some issues with hypotension overnight requiring 2 L of IV fluids. Patient reports subjective improvement in overall condition. Patient did have fever overnight. Urine output has remained stable. General: Alert, Oriented x3, Cooperative, No apparent distress, - - Morbidly obese. HEENT: Atraumatic, PERRLA, EOMI, Normocephalic, - - Slight scleral injection without icterus Oral: Moist Mucosa, No Gingival or Mucosal Lesions/ Ulcerations Neck: Supple, No JVD, No Nodes, Trachea Midline Lungs: No rales, Diminished, Rhonchi - Bilateral, Wheezes - Improved with cough Cardiovascular: Regular rate, Regular Rhythm, Normal S1, Normal S2, No murmurs, No rub noted, No Gallop Abdomen: Bowel Sounds Present, Soft, Non Tender, Non-Distended, Obese Extremities: No clubbing, No cyanosis, Edema Skin: - - No significant change compared to previous Musculoskeletal: No Tenderness to Palpation of Joints or Extremities Lymphatic: No Cervical, Supraclavicular, or Inguinal Adenopathy Neurological: Cranial nerves II-XII grossly intact, Neuro grossly intact, Motor Exam 5/5 strength throughout Psych/Mental Status: Flat Affect, Impulsive Vital Signs Temp Pulse Resp BP Pulse Ox 36.6 C 79 18 96/57 L 96 07/29/18 05:36 07/29/18 07:33 07/29/18 05:36 07/29/18 05:36 07/29/18 06:42 Oxygen Flow Rate (L/min) 3 Oxygen Delivery Method Nasal Cannula Weight: 136.3 kg Body Mass Index (BMI) 43.6 Finger Stick Blood Glucose 294 Intake and Output for Last 24 Hours 07/27/18 07/28/18 07/29/18 23:59 23:59 23:59 Intake Total 5511 / 5511 2928 / 2928 Output Total 1650 / 1650 1675 / 1675 Balance 3861 / 3861 1253 / 1253 Labs (Last 48 Hours) 07/27/18 07/27/18 07/27/18 20:41 20:41 20:41 WBC 28.0 H RBC 4.15 L Hgb 11.4 L Hct 35.2 L MCV 84.8 MCH 27.5 MCHC 32.4 RDW 16.3 H RDW Differential 50.3 H Plt Count 390 MPV 10.0 Immature Gran % (Auto) 0.400 Neut % (Auto) 84.0 H Lymph % (Auto) 6.1 L [place] % (Auto) 9.3 Eos % (Auto) 0.1 Baso % (Auto) 0.1 Absolute Neuts (auto) 23.5 H Absolute Lymphs (auto) 1.71 Total Counted Not Reportable Differential Comment SCANNED Diff Path Review Reviewed Sodium 128 L Potassium 5.0 Chloride 96 L Carbon Dioxide 21.0 Anion Gap 11 BUN 35 H Creatinine 4.74 H Estim Creat Clear Calc 14.51 Est GFR (MDRD) Af Amer 12 L Est GFR (MDRD) Non-Af 10 L BUN/Creatinine Ratio 7.4 L Glucose 131 H Lactic Acid Calcium 8.6 Ionized Calcium Total Bilirubin 0.70 0.60 Direct Bilirubin 0.24 AST 42 H 42 H ALT 18 19 Alkaline Phosphatase 77 78 Troponin I Total Protein 7.4 7.3 Albumin 2.6 L 2.6 L Globulin 4.8 H 4.7 H Albumin/Globulin Ratio 0.6 L TSH Urine Color Urine Clarity Urine pH Ur Specific [place] Urine Protein Urine Glucose (UA) Urine Ketones Urine Occult Blood Urine Nitrite Urine Bilirubin Urine Urobilinogen Ur Leukocyte Esterase Urine RBC Urine WBC Ur Squamous Epith Cells Urine Bacteria Urine Mucus Ur Random Sodium Urine Creatinine Urine Opiates Screen Urine Methadone Screen Ur Barbiturates Screen Ur Phencyclidine Scrn Ur Amphetamines Screen U Methamphetamin-MDMA U Benzodiazepines Scrn Urine Cocaine Screen U Cannabinoids Screen Ur Drug Screen Comment POC Glucose 07/27/18 07/27/18 07/27/18 20:41 21:55 22:06 WBC RBC Hgb Hct MCV MCH MCHC RDW RDW Differential Plt Count MPV Immature Gran % (Auto) Neut % (Auto) Lymph % (Auto) [place] % (Auto) Eos % (Auto) Baso % (Auto) Absolute Neuts (auto) Absolute Lymphs (auto) Total Counted Differential Comment Diff Path Review Sodium Potassium Chloride Carbon Dioxide Anion Gap BUN Creatinine Estim Creat Clear Calc Est GFR (MDRD) Af Amer Est GFR (MDRD) Non-Af BUN/Creatinine Ratio Glucose Lactic Acid 1.7 Calcium Ionized Calcium Total Bilirubin Direct Bilirubin AST ALT Alkaline Phosphatase Troponin I < 0.015 Total Protein Albumin Globulin Albumin/Globulin Ratio TSH Urine Color Yellow Urine Clarity Cloudy Urine pH 5.0 Ur Specific [place] 1.020 Urine Protein 30 H Urine Glucose (UA) Normal Urine Ketones Negative Urine Occult Blood 50 H Urine Nitrite Negative Urine Bilirubin Negative Urine Urobilinogen Normal Ur Leukocyte Esterase 500 H Urine RBC 5-10 SEEN Urine WBC >100 SEEN Ur Squamous Epith Cells 5-10 SEEN Urine Bacteria RARE Urine Mucus 0 SEEN Ur Random Sodium Urine Creatinine Urine Opiates Screen Urine Methadone Screen Ur Barbiturates Screen Ur Phencyclidine Scrn Ur Amphetamines Screen U Methamphetamin-MDMA U Benzodiazepines Scrn Urine Cocaine Screen U Cannabinoids Screen Ur Drug Screen Comment POC Glucose 07/28/18 07/28/18 07/28/18 03:25 03:25 04:10 WBC 27.7 H RBC 3.59 L Hgb 10.2 L Hct 31.1 L MCV 86.6 MCH 28.4 MCHC 32.8 RDW 17.0 H RDW Differential 52.5 H Plt Count 292 MPV 10.4 Immature Gran % (Auto) 0.600 Neut % (Auto) 79.4 H Lymph % (Auto) 8.0 L [place] % (Auto) 11.2 H Eos % (Auto) 0.7 Baso % (Auto) 0.1 Absolute Neuts (auto) 22.0 H Absolute Lymphs (auto) 2.20 Total Counted Not Reportable Differential Comment SCANNED Diff Path Review Reviewed Sodium Cancelled 136 Potassium Cancelled 4.9 Chloride Cancelled 103 Carbon Dioxide Cancelled 20.0 L Anion Gap Cancelled 13 BUN Cancelled 38 H Creatinine Cancelled 4.84 H Estim Creat Clear Calc Cancelled 14.21 Est GFR (MDRD) Af Amer Cancelled 12 L Est GFR (MDRD) Non-Af Cancelled 10 L BUN/Creatinine Ratio Cancelled 7.9 L Glucose Cancelled 59 L Lactic Acid Calcium Cancelled 7.4 L Ionized Calcium Total Bilirubin Direct Bilirubin AST ALT Alkaline Phosphatase Troponin I Total Protein Albumin Globulin Albumin/Globulin Ratio TSH Urine Color Urine Clarity Urine pH Ur Specific [place] Urine Protein Urine Glucose (UA) Urine Ketones Urine Occult Blood Urine Nitrite Urine Bilirubin Urine Urobilinogen Ur Leukocyte Esterase Urine RBC Urine WBC Ur Squamous Epith Cells Urine Bacteria Urine Mucus Ur Random Sodium Urine Creatinine Urine Opiates Screen Urine Methadone Screen Ur Barbiturates Screen Ur Phencyclidine Scrn Ur Amphetamines Screen U Methamphetamin-MDMA U Benzodiazepines Scrn Urine Cocaine Screen U Cannabinoids Screen Ur Drug Screen Comment POC Glucose 07/28/18 07/28/18 07/28/18 04:10 06:34 08:55 WBC RBC Hgb Hct MCV MCH MCHC RDW RDW Differential Plt Count MPV Immature Gran % (Auto) Neut % (Auto) Lymph % (Auto) [place] % (Auto) Eos % (Auto) Baso % (Auto) Absolute Neuts (auto) Absolute Lymphs (auto) Total Counted Differential Comment Diff Path Review Sodium Potassium Chloride Carbon Dioxide Anion Gap BUN Creatinine Estim Creat Clear Calc Est GFR (MDRD) Af Amer Est GFR (MDRD) Non-Af BUN/Creatinine Ratio Glucose Lactic Acid Calcium Ionized Calcium Total Bilirubin Direct Bilirubin AST ALT Alkaline Phosphatase Troponin I Total Protein Albumin Globulin Albumin/Globulin Ratio TSH 1.24 Urine Color Urine Clarity Urine pH Ur Specific [place] Urine Protein Urine Glucose (UA) Urine Ketones Urine Occult Blood Urine Nitrite Urine Bilirubin Urine Urobilinogen Ur Leukocyte Esterase Urine RBC Urine WBC Ur Squamous Epith Cells Urine Bacteria Urine Mucus Ur Random Sodium Urine Creatinine Urine Opiates Screen NEGATIVE Urine Methadone Screen NEGATIVE Ur Barbiturates Screen NEGATIVE Ur Phencyclidine Scrn NEGATIVE Ur Amphetamines Screen POSITIVE H U Methamphetamin-MDMA POSITIVE H U Benzodiazepines Scrn NEGATIVE Urine Cocaine Screen NEGATIVE U Cannabinoids Screen NEGATIVE Ur Drug Screen Comment POC Glucose 164 H 07/28/18 07/28/18 07/28/18 08:55 08:55 11:46 WBC RBC Hgb Hct MCV MCH MCHC RDW RDW Differential Plt Count MPV Immature Gran % (Auto) Neut % (Auto) Lymph % (Auto) [place] % (Auto) Eos % (Auto) Baso % (Auto) Absolute Neuts (auto) Absolute Lymphs (auto) Total Counted Differential Comment Diff Path Review Sodium 132 L Potassium 4.9 Chloride 102 Carbon Dioxide 18.0 L Anion Gap 12 BUN 40 H Creatinine 4.29 H Estim Creat Clear Calc 16.03 Est GFR (MDRD) Af Amer 14 L Est GFR (MDRD) Non-Af 12 L BUN/Creatinine Ratio 9.3 L Glucose 353 H Lactic Acid Calcium 7.9 L Ionized Calcium Total Bilirubin Direct Bilirubin AST ALT Alkaline Phosphatase Troponin I Total Protein Albumin Globulin Albumin/Globulin Ratio TSH Urine Color Urine Clarity Urine pH Ur Specific [place] Urine Protein Urine Glucose (UA) Urine Ketones Urine Occult Blood Urine Nitrite Urine Bilirubin Urine Urobilinogen Ur Leukocyte Esterase Urine RBC Urine WBC Ur Squamous Epith Cells Urine Bacteria Urine Mucus Ur Random Sodium 12 Urine Creatinine 172.00 Urine Opiates Screen Urine Methadone Screen Ur Barbiturates Screen Ur Phencyclidine Scrn Ur Amphetamines Screen U Methamphetamin-MDMA U Benzodiazepines Scrn Urine Cocaine Screen U Cannabinoids Screen Ur Drug Screen Comment POC Glucose 07/28/18 07/28/18 07/28/18 11:51 16:50 21:20 WBC RBC Hgb Hct MCV MCH MCHC RDW RDW Differential Plt Count MPV Immature Gran % (Auto) Neut % (Auto) Lymph % (Auto) [place] % (Auto) Eos % (Auto) Baso % (Auto) Absolute Neuts (auto) Absolute Lymphs (auto) Total Counted Differential Comment Diff Path Review Sodium Potassium Chloride Carbon Dioxide Anion Gap BUN Creatinine Estim Creat Clear Calc Est GFR (MDRD) Af Amer Est GFR (MDRD) Non-Af BUN/Creatinine Ratio Glucose Lactic Acid Calcium Ionized Calcium Total Bilirubin Direct Bilirubin AST ALT Alkaline Phosphatase Troponin I Total Protein Albumin Globulin Albumin/Globulin Ratio TSH Urine Color Urine Clarity Urine pH Ur Specific [place] Urine Protein Urine Glucose (UA) Urine Ketones Urine Occult Blood Urine Nitrite Urine Bilirubin Urine Urobilinogen Ur Leukocyte Esterase Urine RBC Urine WBC Ur Squamous Epith Cells Urine Bacteria Urine Mucus Ur Random Sodium Urine Creatinine Urine Opiates Screen Urine Methadone Screen Ur Barbiturates Screen Ur Phencyclidine Scrn Ur Amphetamines Screen U Methamphetamin-MDMA U Benzodiazepines Scrn Urine Cocaine Screen U Cannabinoids Screen Ur Drug Screen Comment POC Glucose 361 H 253 H 292 H 07/29/18 07/29/18 07/29/18 06:49 06:57 06:57 WBC 19.1 H RBC 3.45 L Hgb 9.4 L Hct 29.5 L MCV 85.5 MCH 27.2 MCHC 31.9 L RDW 16.4 H RDW Differential 49.8 H Plt Count 362 MPV 10.4 Immature Gran % (Auto) 0.500 Neut % (Auto) 90.9 H Lymph % (Auto) 3.7 L [place] % (Auto) 4.9 Eos % (Auto) 0.0 Baso % (Auto) 0.0 Absolute Neuts (auto) 17.4 H Absolute Lymphs (auto) 0.71 L Total Counted Not Reportable Differential Comment Diff Path Review Sodium Potassium Chloride Carbon Dioxide Anion Gap BUN Creatinine Estim Creat Clear Calc Est GFR (MDRD) Af Amer Est GFR (MDRD) Non-Af BUN/Creatinine Ratio Glucose Lactic Acid Calcium Ionized Calcium Pending Total Bilirubin Direct Bilirubin AST ALT Alkaline Phosphatase Troponin I Total Protein Albumin Globulin Albumin/Globulin Ratio TSH Urine Color Urine Clarity Urine pH Ur Specific [place] Urine Protein Urine Glucose (UA) Urine Ketones Urine Occult Blood Urine Nitrite Urine Bilirubin Urine Urobilinogen Ur Leukocyte Esterase Urine RBC Urine WBC Ur Squamous Epith Cells Urine Bacteria Urine Mucus Ur Random Sodium Urine Creatinine Urine Opiates Screen Urine Methadone Screen Ur Barbiturates Screen Ur Phencyclidine Scrn Ur Amphetamines Screen U Methamphetamin-MDMA U Benzodiazepines Scrn Urine Cocaine Screen U Cannabinoids Screen Ur Drug Screen Comment POC Glucose 159 H 07/29/18 06:57 WBC RBC Hgb Hct MCV MCH MCHC RDW RDW Differential Plt Count MPV Immature Gran % (Auto) Neut % (Auto) Lymph % (Auto) [place] % (Auto) Eos % (Auto) Baso % (Auto) Absolute Neuts (auto) Absolute Lymphs (auto) Total Counted Differential Comment Diff Path Review Sodium 141 Potassium 4.4 Chloride 110 H Carbon Dioxide 23.0 Anion Gap 8 BUN 40 H Creatinine 2.06 H Estim Creat Clear Calc 33.39 Est GFR (MDRD) Af Amer 32 L Est GFR (MDRD) Non-Af 27 L BUN/Creatinine Ratio 19.4 Glucose 158 H Lactic Acid Calcium 7.9 L Ionized Calcium Total Bilirubin Direct Bilirubin AST ALT Alkaline Phosphatase Troponin I Total Protein Albumin Globulin Albumin/Globulin Ratio TSH Urine Color Urine Clarity Urine pH Ur Specific [place] Urine Protein Urine Glucose (UA) Urine Ketones Urine Occult Blood Urine Nitrite Urine Bilirubin Urine Urobilinogen Ur Leukocyte Esterase Urine RBC Urine WBC Ur Squamous Epith Cells Urine Bacteria Urine Mucus Ur Random Sodium Urine Creatinine Urine Opiates Screen Urine Methadone Screen Ur Barbiturates Screen Ur Phencyclidine Scrn Ur Amphetamines Screen U Methamphetamin-MDMA U Benzodiazepines Scrn Urine Cocaine Screen U Cannabinoids Screen Ur Drug Screen Comment POC Glucose Microbiology 07/28/18 08:55 Stool Enteric Bacteriology - Final 07/27/18 21:55 Urine Catheter - Al[facility]zan Legionella Antigen - Final 07/27/18 21:55 Urine Catheter - Almazan Streptococcus pneumoniae Antigen (M - Final Medical Necessity - Tobacco Use Smoking Status: Current every day smoker Tobacco Use: Cigarettes Assessment/Plan All Active Problems Community acquired pneumonia (Acute) SIRS (systemic inflammatory response syndrome) (Acute) Severe sepsis (Acute) Intractable nausea and vomiting (Acute) UTI (urinary tract infection) (Acute) Severe sepsis (Acute) Severe sepsis (Acute) Overdose (Acute) Unresponsive episode (Acute) Acute hypoxemic respiratory failure (Acute) Lower abdominal pain (Acute) Diarrhea (Acute) Nausea and vomiting (Acute) Pneumonia, bacterial (Acute) UTI (urinary tract infection) (Acute) Diarrhea (Acute) Abdominal pain (Acute) Diarrhea (Resolved) History of Clostridium difficile (Resolved) Acute exacerbation of chronic obstructive pulmonary disease (COPD) (Ruled-out) SIRS with Severe sepsis due to UTI (Ruled-out) Urinary tract infection (Ruled-out) RECOMMENDATIONS: 1. Increase activity as tolerated 2. Continue empiric antibiotics, awaiting cultures 3. Aggressive pulmonary toileting 4. Wean oxygen as tolerated 5. No transfusion indicated at this time IMPRESSIONS: 1. Severe sepsis with multiple possible sources Patient does have urine that appears to be consistent with a urinary tract infection. Patient also has a right upper lobe infiltrate distant with a community-acquired pneumonia. Patient has had multiple infections previously and has a leukocytosis with hypotension on presentation. Patient's respiratory status appears to be okay at this time. Await cultures, but decrease in leukocytosis indicates probable good response to current selection. 2. Acute kidney injury Improving. Nephrology following. Unclear etiology. Patient may have a prerenal etiology secondary to severe sepsis. Patient also had significant urinary retention reported by the ER staff. Patient's lisinopril should be held. Blood pressure support. Avoid nephrotoxic medications. We will continue to monitor. 3. Acute encephalopathy, possibly toxic Patient with multiple possible etiologies for underlying issues. Patient appears to be improving this morning, so psychiatric meds can be reinitiated. Would continue to hold Plaquenil for now. Continue with delirium protocol. 4. Acute hypoxic respiratory insufficiency Clinical suspicion for underlying pneumonia that may blossom after fluid resuscitation. Obtain chest x-ray if decompensates or respiratory standpoint. BiPAP rescue if necessary overnight. Patient does have a smoking history, so underlying COPD cannot be excluded. 5. Possible recent falls/GERD/anxiety/neuropathy/morbid obesity/anemia Complicates care, management, recovery and prognosis. Initiate fall risk precautions. Decrease in hemoglobin likely secondary to dilution Code Visit Inpatient E&M: [id number] [facility] Hosp L3
[2018-07-29] MEDS: busPIRone 15 MG TABLET 30 MG PO ×2 (09:32→21:01)
[2018-07-29] MEDS: Menthol/Lanolin/Calamine/Znox 113 GM Tube 1 APPLIC TOPICAL ×2 (09:32→21:01)
[2018-07-29] MEDS: DULoxetine Hcl 60 MG Capsule 120 MG PO (09:33)
[2018-07-29] MEDS: Lidocaine 5% Patch 2 PATCH TOPICAL (09:33)
[2018-07-29] MEDS: buPROPion (XL) 300 MG TABLET.XL PO (09:33)
[2018-07-29] MEDS: guaiFENesin 1,200 MG Tablet 1200 MG PO ×2 (09:33→21:03)
[2018-07-29] MEDS: Pantoprazole Sodium 40 MG Tablet PO (09:34)
[2018-07-29] MEDS: Nystatin Ointment 1 APPLIC TOPICAL ×2 (09:34→21:01)
--- NOTE | 2018-07-29 09:54 | CASEMGMT ---
Addendum entered by Kaitlin Walker 07/29/18 10:22: SW asked patient if she has a counselor. She said she sees Montserrat Hinson at [facility] twice a month. She also said she may need a cane at discharge. Kaitlin PICKETT Original Note: Assessment- SW met with patient, introduced self and role at [facility]. Patient agreed to answer SW's questions. Living situation- Patient lives in a 1 story home with 1 entry step. Prior to her hospitalization her ex-boyfriend was living with her. However, she no longer wants him living with her. She said the place is in her and her mom's name. She called [facility] and told them she does not want him in the home anymore. She said he won't be there when she gets out. PCP: Dr Walsh Specialists: Patient said she sees specialists, but could not remember their names Pharmacy: [facility] DME: None ADL's/IADL's: Patient is normally independent. She does not drive. Past SNF/rehab: None Past HH: Yes, but she could not remember the name. She thought maybe it was [facility]. LW: Yes, but not on file. She is aware documents is not on file. POA: Yes, but not on file. She is aware document is not on file. Plan: Patient feels she will be fine to go home at d/c. She was interested in home health. YUSUF/PERLA CM to follow for PT/OT notes and recommendations Kaitlin PICKETT
[2018-07-29 12:06] LABS: Bedside Glucose 193 mg/dL (70-110)
--- NOTE | 2018-07-29 12:19 | CASEMGMT ---
Patient said she has a Healthcare POA and Healthcare LW. She is aware they are not on file at [facility]. Kaitlin PICKETT
--- NOTE | 2018-07-29 12:26 | PN.RENAL_ITS ---
Patient Problems: Active and Suspected Problems Community acquired pneumonia (Acute) Subjective: more awake, responsive. Renal fxn improving with good urine volume - Physical Exam General: Alert, Oriented x3, Cooperative, No apparent distress Lungs: Clear to auscultation Cardiovascular: Regular rate Abdomen: Bowel Sounds Present, Soft, Non Tender, Non-Distended Extremities: No edema Psych/Mental Status: Normal Affect, Appropriate, Alert and oriented to time, place, person, mood and affect Vital Signs Temp Pulse Resp BP Pulse Ox 97.9 F 79 18 96/57 L 96 07/29/18 05:36 07/29/18 07:33 07/29/18 05:36 07/29/18 05:36 07/29/18 06:42 Oxygen Flow Rate (L/min) 3 Oxygen Delivery Method Nasal Cannula Weight: 136.3 kg Body Mass Index (BMI) 43.6 Finger Stick Blood Glucose 294 Intake and Output for Last 24 Hours 07/27/18 07/28/18 07/29/18 23:59 23:59 23:59 Intake Total 5511 / 5511 3128 / 3128 Output Total 1650 / 1650 2075 / 2075 Balance 3861 / 3861 1053 / 1053 Microbiology Past 72 Hours 07/27/18 21:55 Urine Culture - Preliminary Urine Catheter - Almazan Alpha hemolytic organism 07/28/18 08:55 Enteric Bacteriology - Final Stool 07/27/18 21:55 Legionella Antigen - Final Urine Catheter - Almazan 07/27/18 21:55 Streptococcus pneumoniae Antigen (M - Final Urine Catheter - Almazan Laboratory Tests Past 24 Hrs 07/27/18 07/28/18 07/28/18 20:41 03:25 11:46 WBC RBC Hgb Hct MCV MCH MCHC RDW RDW Differential Plt Count MPV Immature Gran % (Auto) Neut % (Auto) Lymph % (Auto) [place] % (Auto) Eos % (Auto) Baso % (Auto) Absolute Neuts (auto) Absolute Lymphs (auto) Total Counted Diff Path Review Reviewed Reviewed Sodium 132 L Potassium 4.9 Chloride 102 Carbon Dioxide 18.0 L Anion Gap 12 BUN 40 H Creatinine 4.29 H Estim Creat Clear Calc 16.03 Est GFR (MDRD) Af Amer 14 L Est GFR (MDRD) Non-Af 12 L BUN/Creatinine Ratio 9.3 L Glucose 353 H Calcium 7.9 L Ionized Calcium 07/29/18 07/29/18 07/29/18 06:57 06:57 06:57 WBC 19.1 H RBC 3.45 L Hgb 9.4 L Hct 29.5 L MCV 85.5 MCH 27.2 MCHC 31.9 L RDW 16.4 H RDW Differential 49.8 H Plt Count 362 MPV 10.4 Immature Gran % (Auto) 0.500 Neut % (Auto) 90.9 H Lymph % (Auto) 3.7 L [place] % (Auto) 4.9 Eos % (Auto) 0.0 Baso % (Auto) 0.0 Absolute Neuts (auto) 17.4 H Absolute Lymphs (auto) 0.71 L Total Counted Not Reportable Diff Path Review Sodium 141 Potassium 4.4 Chloride 110 H Carbon Dioxide 23.0 Anion Gap 8 BUN 40 H Creatinine 2.06 H Estim Creat Clear Calc 33.39 Est GFR (MDRD) Af Amer 32 L Est GFR (MDRD) Non-Af 27 L BUN/Creatinine Ratio 19.4 Glucose 158 H Calcium 7.9 L Ionized Calcium Pending POC Glucose 07/29/18 07/29/18 07/28/18 12:02 06:49 21:20 POC Glucose 193 H 159 H 292 H 07/28/18 16:50 POC Glucose 253 H Medical Necessity - Tobacco Use Smoking Status: Current every day smoker Tobacco Use: Cigarettes Assessment/Plan All Active Problems Community acquired pneumonia (Acute) SIRS (systemic inflammatory response syndrome) (Acute) Severe sepsis (Acute) Intractable nausea and vomiting (Acute) UTI (urinary tract infection) (Acute) Severe sepsis (Acute) Severe sepsis (Acute) Overdose (Acute) Unresponsive episode (Acute) Acute hypoxemic respiratory failure (Acute) Lower abdominal pain (Acute) Diarrhea (Acute) Nausea and vomiting (Acute) Pneumonia, bacterial (Acute) UTI (urinary tract infection) (Acute) Diarrhea (Acute) Abdominal pain (Acute) Diarrhea (Resolved) History of Clostridium difficile (Resolved) Acute exacerbation of chronic obstructive pulmonary disease (COPD) (Ruled-out) SIRS with Severe sepsis due to UTI (Ruled-out) Urinary tract infection (Ruled-out) 1. Acute renal failure due to prerenal event, hypotension, shock. Urine output improved. Creatinine improving 2. sepsis syndrome with hypotensive shock, pancultured 3. Polysubstance abuse 4. Encephalopathic 5. HTN BP low, support with fluids 6. DM2 stable 7. COPD with tobacco use history
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
[2018-07-29 16:31] LABS: Bedside Glucose 176 mg/dL (70-110)
[2018-07-29] MEDS: Gabapentin 600 MG Tablet PO (17:24)
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
[2018-07-29] MEDS: LORazepam 0.5 MG Tablet PO (19:40)
[2018-07-29] MEDS: QUEtiapine 100 MG Tablet 200 MG PO (21:01)
[2018-07-29] MEDS: Atorvastatin Calcium 20 MG Tablet PO (21:03)
[2018-07-29] MEDS: Ceftriaxone 1 GM/50 ML BAG IV (21:04)
[2018-07-29 21:25] LABS: Bedside Glucose 228 mg/dL (70-110)
[2018-07-30] VITALS (11 sets, daily range): BP systolic 105–148; BP diastolic 61–80; PULSE 77–86; RESP 16–18; TEMP 36.2–36.9; O2SAT 95–98
--- NOTE | 2018-07-30 03:01 | PCM.PN.BLA ---
Progress Note Preliminary blood culture showed gram positive cocci in clusters. Of note patient is recovery from JANESSA but still in JANESSA. Will add vancomycin to regimen. Rounding attending to de-escalate antibiotics as necessary. Pharmacy to dose antibiotics. From progress note on 07/29/2016 patient reported IVDU. Will repeat blood culture.
--- NOTE | 2018-07-30 04:28 | PCM.RX.CS ---
Consult Pharmacy has been consulted to manage selected antiobiotic: Vancomycin Type of Consult: New start Suspected Infection: Sepsis, Pneumonia Prior Doses of Antibiotics Received/Current Regimen: Medications Vancomycin HCl 1,500 mg/ (Sodium Chloride) 530 mls @ 250 mls/hr IV Q24H MAX Vancomycin HCl 2,000 mg/ (Sodium Chloride) 540 mls @ 250 mls/hr IV X1 ONE Stop: 07/30/18 05:39 Last Admin: 07/30/18 03:56 Dose: 250 mls/hr Labs: Sodium 141 mmol/L (136-145) 07/29/18 06:57 Potassium 4.4 mmol/L (3.5-5.1) 07/29/18 06:57 Chloride 110 mmol/L (98-107) H 07/29/18 06:57 Carbon Dioxide 23.0 mmol/L (21.0-32.0) 07/29/18 06:57 Anion Gap 8 (5-15) 07/29/18 06:57 BUN 40 mg/dL (7-18) H 07/29/18 06:57 Creatinine 2.06 mg/dL (0.55-1.02) H 07/29/18 06:57 Est GFR (MDRD) Af Amer 32 mL/min (>60) L 07/29/18 06:57 Est GFR (MDRD) Non-Af 27 mL/min (>60) L 07/29/18 06:57 BUN/Creatinine Ratio 19.4 RATIO (10-20) 07/29/18 06:57 Glucose 158 mg/dL (74-106) H 07/29/18 06:57 Microbiology: Microbiology 07/27/18 22:13 Blood Culture (Wb) - Left Forearm Blood Culture - Preliminary 07/27/18 21:55 Urine Catheter - Almazan Urine Culture - Preliminary Alpha hemolytic organism 07/28/18 08:55 Stool Enteric Bacteriology - Final 07/27/18 21:55 Urine Catheter - Almazan Legionella Antigen - Final 07/27/18 21:55 Urine Catheter - Almazan Streptococcus pneumoniae Antigen (M - Final Weight used for dosin.3 kg Estimated Creatinine Clearance: 33 Goal Trough: 15-20 mcg/mL Pharmacy Plan for Drug Dosing: Pharmacy Service will continue to monitor and adjust dosing as required. Follow-Up Labs: Trough Vancomycin Labs to be done on [date and time ordered]: 08-01-18 @0333
[2018-07-30] MEDS: Heparin Injection (Vial) 5,000 UNIT/ML VIAL 5000 UNIT SC ×3 (06:27→21:10)
[2018-07-30] MEDS: Acetaminophen 500 MG Tablet 1000 MG PO ×3 (06:27→21:12)
[2018-07-30] MEDS: Levothyroxine 150 MCG Tablet PO (06:27)
[2018-07-30] MEDS: 0.9% Normal Saline 1,000 ML 100 ML IV ×2 (06:28→16:06)
[2018-07-30] MEDS: Insulin Lispro 100 UNIT/ML INSULN.PEN SQ ×3 (06:28→21:10)
[2018-07-30 06:49] LABS: Absolute Lymphocyte Count 1.25 X10^3/ul (0.83-4.51); Absolute Neutrophil Count 15.3 X10^3/uL (2.0-7.7); Hematocrit 29.5 % (37-47); Hemoglobin 9.5 g/dl (12.0-15.0); Lymphocyte # 1.25 X10^3/ul (4.0); Mean Corp Hgb Conc 32.2 g/gl (32-36); Mean Corpuscular Hgb 27.7 pg (27.0-32.0); Mean Platelet Vol. 9.7 fl (6.2-12.0); Monocyte# 1.27 X10^3/uL; Monocyte% 7.1 % (0-10); Neutrophil # 15.27 X10^3/uL (2.7-7.7); Neutrophil % 85.7 % (47-70); Platelet Count 375 K/mm3 (150-450); RBC Distribution Width CV 16.6 % (11.6-14.6); RBC Distribution Width SD 52.5 fl (35.1-43.9); Red Blood Count 3.43 M/mm3 (4.2-5.4); White Blood Count 17.8 K/mm3 (4.4-11.0)
[2018-07-30] MEDS: Ipratropium/Albuterol Sulfate 3 ML AMPUL.NEB INHALATION (06:53)
[2018-07-30 06:58] LABS: POSITIVE COUNT NO; POSITIVE DIFFERENTIAL NO; POSITIVE MORPHOLOGY NO
[2018-07-30 07:08] LABS: Anion Gap 9 (5-15); BUN 40 mg/dL (7-18); Calcium,Total 8.3 mg/dL (8.5-10.1); Chloride 113 mmol/L (98-107); Creatinine, Serum 1.29 mg/dL (0.55-1.02); EST Glomerular Filtration Rate 46 mL/min (>60); Est Glom Filt Rate - Afr Amer 56 mL/min (>60); Estimated Creatinine Clearance 53.31 ml/min; Glucose 175 mg/dL (74-106); Potassium 4.4 mmol/L (3.5-5.1); Sodium Level 143 mmol/L (136-145)
--- NOTE | 2018-07-30 08:01 | PN_ITS ---
Subjective: Patient did well overnight. No acute issues were reported. Patient did not require any fluid boluses. Patient reports subjective improvement and is asking to go home. Patient denies any nausea or vomiting. General: Alert, Oriented x3, Cooperative, No apparent distress, - - Morbidly obese. Speaking in full sentences. HEENT: Atraumatic, PERRLA, EOMI, Normocephalic, - - No scleral icterus or injection noted. Oral: Moist Mucosa, No Gingival or Mucosal Lesions/ Ulcerations, - - Crowded posterior pharynx Neck: Supple, No JVD, No Nodes, Trachea Midline Lungs: No rhonchi, No wheeze, No rales, Diminished, - - Symmetric expansion. No dullness to percussion. Patient on aerosol therapy on my evaluation. Cardiovascular: Regular rate, Regular Rhythm, Normal S1, Normal S2, No murmurs, No rub noted, No Gallop Abdomen: Bowel Sounds Present, Soft, Non Tender, Non-Distended, Obese Extremities: No cyanosis, Edema Skin: - - No significant change compared to previous Musculoskeletal: No Tenderness to Palpation of Joints or Extremities Lymphatic: No Cervical, Supraclavicular, or Inguinal Adenopathy Neurological: Cranial nerves II-XII grossly intact, Neuro grossly intact, Motor Exam 5/5 strength throughout Psych/Mental Status: Alert and oriented to time, place, person, mood and affect Vital Signs Temp Pulse Resp BP Pulse Ox 36.2 C L 85 18 108/64 96 07/30/18 03:00 07/30/18 07:37 07/30/18 03:00 07/30/18 03:00 07/30/18 03:00 Oxygen Flow Rate (L/min) 2 Oxygen Delivery Method Nasal Cannula Weight: 136.6 kg Body Mass Index (BMI) 43.6 Finger Stick Blood Glucose 294 Intake and Output for Last 24 Hours 07/28/18 07/29/18 07/30/18 23:59 23:59 23:59 Intake Total 5511 / 5511 6385 / 6385 1014 / 1014 Output Total 1650 / 1650 3125 / 3125 650 / 650 Balance 3861 / 3861 3260 / 3260 364 / 364 Labs (Last 48 Hours) 07/27/18 07/28/18 07/28/18 20:41 03:25 08:55 WBC RBC Hgb Hct MCV MCH MCHC RDW RDW Differential Plt Count MPV Immature Gran % (Auto) Neut % (Auto) Lymph % (Auto) [place] % (Auto) Eos % (Auto) Baso % (Auto) Absolute Neuts (auto) Absolute Lymphs (auto) Total Counted Diff Path Review Reviewed Reviewed Sodium Potassium Chloride Carbon Dioxide Anion Gap BUN Creatinine Estim Creat Clear Calc Est GFR (MDRD) Af Amer Est GFR (MDRD) Non-Af BUN/Creatinine Ratio Glucose Calcium Ionized Calcium Ur Random Sodium Urine Creatinine Urine Opiates Screen NEGATIVE Urine Methadone Screen NEGATIVE Ur Barbiturates Screen NEGATIVE Ur Phencyclidine Scrn NEGATIVE Ur Amphetamines Screen POSITIVE H U Methamphetamin-MDMA POSITIVE H U Benzodiazepines Scrn NEGATIVE Urine Cocaine Screen NEGATIVE U Cannabinoids Screen NEGATIVE Ur Drug Screen Comment POC Glucose 07/28/18 07/28/18 07/28/18 08:55 08:55 11:46 WBC RBC Hgb Hct MCV MCH MCHC RDW RDW Differential Plt Count MPV Immature Gran % (Auto) Neut % (Auto) Lymph % (Auto) [place] % (Auto) Eos % (Auto) Baso % (Auto) Absolute Neuts (auto) Absolute Lymphs (auto) Total Counted Diff Path Review Sodium 132 L Potassium 4.9 Chloride 102 Carbon Dioxide 18.0 L Anion Gap 12 BUN 40 H Creatinine 4.29 H Estim Creat Clear Calc 16.03 Est GFR (MDRD) Af Amer 14 L Est GFR (MDRD) Non-Af 12 L BUN/Creatinine Ratio 9.3 L Glucose 353 H Calcium 7.9 L Ionized Calcium Ur Random Sodium 12 Urine Creatinine 172.00 Urine Opiates Screen Urine Methadone Screen Ur Barbiturates Screen Ur Phencyclidine Scrn Ur Amphetamines Screen U Methamphetamin-MDMA U Benzodiazepines Scrn Urine Cocaine Screen U Cannabinoids Screen Ur Drug Screen Comment POC Glucose 07/28/18 07/28/18 07/28/18 11:51 16:50 21:20 WBC RBC Hgb Hct MCV MCH MCHC RDW RDW Differential Plt Count MPV Immature Gran % (Auto) Neut % (Auto) Lymph % (Auto) [place] % (Auto) Eos % (Auto) Baso % (Auto) Absolute Neuts (auto) Absolute Lymphs (auto) Total Counted Diff Path Review Sodium Potassium Chloride Carbon Dioxide Anion Gap BUN Creatinine Estim Creat Clear Calc Est GFR (MDRD) Af Amer Est GFR (MDRD) Non-Af BUN/Creatinine Ratio Glucose Calcium Ionized Calcium Ur Random Sodium Urine Creatinine Urine Opiates Screen Urine Methadone Screen Ur Barbiturates Screen Ur Phencyclidine Scrn Ur Amphetamines Screen U Methamphetamin-MDMA U Benzodiazepines Scrn Urine Cocaine Screen U Cannabinoids Screen Ur Drug Screen Comment POC Glucose 361 H 253 H 292 H 07/29/18 07/29/18 07/29/18 06:49 06:57 06:57 WBC 19.1 H RBC 3.45 L Hgb 9.4 L Hct 29.5 L MCV 85.5 MCH 27.2 MCHC 31.9 L RDW 16.4 H RDW Differential 49.8 H Plt Count 362 MPV 10.4 Immature Gran % (Auto) 0.500 Neut % (Auto) 90.9 H Lymph % (Auto) 3.7 L [place] % (Auto) 4.9 Eos % (Auto) 0.0 Baso % (Auto) 0.0 Absolute Neuts (auto) 17.4 H Absolute Lymphs (auto) 0.71 L Total Counted Not Reportable Diff Path Review Sodium Potassium Chloride Carbon Dioxide Anion Gap BUN Creatinine Estim Creat Clear Calc Est GFR (MDRD) Af Amer Est GFR (MDRD) Non-Af BUN/Creatinine Ratio Glucose Calcium Ionized Calcium Pending Ur Random Sodium Urine Creatinine Urine Opiates Screen Urine Methadone Screen Ur Barbiturates Screen Ur Phencyclidine Scrn Ur Amphetamines Screen U Methamphetamin-MDMA U Benzodiazepines Scrn Urine Cocaine Screen U Cannabinoids Screen Ur Drug Screen Comment POC Glucose 159 H 07/29/18 07/29/18 07/29/18 06:57 12:02 16:21 WBC RBC Hgb Hct MCV MCH MCHC RDW RDW Differential Plt Count MPV Immature Gran % (Auto) Neut % (Auto) Lymph % (Auto) [place] % (Auto) Eos % (Auto) Baso % (Auto) Absolute Neuts (auto) Absolute Lymphs (auto) Total Counted Diff Path Review Sodium 141 Potassium 4.4 Chloride 110 H Carbon Dioxide 23.0 Anion Gap 8 BUN 40 H Creatinine 2.06 H Estim Creat Clear Calc 33.39 Est GFR (MDRD) Af Amer 32 L Est GFR (MDRD) Non-Af 27 L BUN/Creatinine Ratio 19.4 Glucose 158 H Calcium 7.9 L Ionized Calcium Ur Random Sodium Urine Creatinine Urine Opiates Screen Urine Methadone Screen Ur Barbiturates Screen Ur Phencyclidine Scrn Ur Amphetamines Screen U Methamphetamin-MDMA U Benzodiazepines Scrn Urine Cocaine Screen U Cannabinoids Screen Ur Drug Screen Comment POC Glucose 193 H 176 H 07/29/18 07/30/18 07/30/18 20:59 05:20 05:20 WBC 17.8 H RBC 3.43 L Hgb 9.5 L Hct 29.5 L MCV 86.0 MCH 27.7 MCHC 32.2 RDW 16.6 H RDW Differential 52.5 H Plt Count 375 MPV 9.7 Immature Gran % (Auto) 0.200 Neut % (Auto) 85.7 H Lymph % (Auto) 7.0 L [place] % (Auto) 7.1 Eos % (Auto) 0.0 Baso % (Auto) 0.0 Absolute Neuts (auto) 15.3 H Absolute Lymphs (auto) 1.25 Total Counted Not Reportable Diff Path Review Sodium 143 Potassium 4.4 Chloride 113 H Carbon Dioxide 21.0 Anion Gap 9 BUN 40 H Creatinine 1.29 H Estim Creat Clear Calc 53.31 Est GFR (MDRD) Af Amer 56 L Est GFR (MDRD) Non-Af 46 L BUN/Creatinine Ratio 31.0 H Glucose 175 H Calcium 8.3 L Ionized Calcium Ur Random Sodium Urine Creatinine Urine Opiates Screen Urine Methadone Screen Ur Barbiturates Screen Ur Phencyclidine Scrn Ur Amphetamines Screen U Methamphetamin-MDMA U Benzodiazepines Scrn Urine Cocaine Screen U Cannabinoids Screen Ur Drug Screen Comment POC Glucose 228 H Microbiology 07/27/18 22:13 Blood Culture (Wb) - Left Forearm Blood Culture - Preliminary 07/27/18 21:55 Urine Catheter - Almazan Urine Culture - Preliminary Alpha hemolytic organism 07/28/18 08:55 Stool Enteric Bacteriology - Final Medical Necessity - Tobacco Use Smoking Status: Current every day smoker Tobacco Use: Cigarettes Assessment/Plan All Active Problems Community acquired pneumonia (Acute) SIRS (systemic inflammatory response syndrome) (Acute) Severe sepsis (Acute) Intractable nausea and vomiting (Acute) UTI (urinary tract infection) (Acute) Severe sepsis (Acute) Severe sepsis (Acute) Overdose (Acute) Unresponsive episode (Acute) Acute hypoxemic respiratory failure (Acute) Lower abdominal pain (Acute) Diarrhea (Acute) Nausea and vomiting (Acute) Pneumonia, bacterial (Acute) UTI (urinary tract infection) (Acute) Diarrhea (Acute) Abdominal pain (Acute) Diarrhea (Resolved) History of Clostridium difficile (Resolved) Acute exacerbation of chronic obstructive pulmonary disease (COPD) (Ruled-out) SIRS with Severe sepsis due to UTI (Ruled-out) Urinary tract infection (Ruled-out) RECOMMENDATIONS: 1. Increase activity as tolerated 2. Continue empiric antibiotics, awaiting cultures 3. Aggressive pulmonary toileting 4. Wean oxygen as tolerated 5. Walking oximetry prior to discharge 6. Hemodynamically stable on minimal nasal cannula. Will sign off from a critical care perspective IMPRESSIONS: 1. Severe sepsis with multiple possible sources Patient does have urine that appears to be consistent with a urinary tract infection. Patient also has a right upper lobe infiltrate distant with a community-acquired pneumonia. Patient is now growing a gram-positive cocci in blood cultures. Species and sensitivities are still pending. Patient has had multiple infections previously and has a leukocytosis with hypotension on presentation. Patient's respiratory status appears to be okay at this time. Await cultures, but decrease in leukocytosis indicates probable good response to current selection. 2. Acute kidney injury Improving. Nephrology following. Unclear etiology. Patient may have a prerenal etiology secondary to severe sepsis. Patient also had significant urinary retention reported by the ER staff. Patient's lisinopril should be held. Blood pressure support. Avoid nephrotoxic medications. We will continue to monitor. 3. Acute encephalopathy, possibly toxic Patient with multiple possible etiologies for underlying issues. Patient appears to be improving this morning, so psychiatric meds can be reinitiated. Patient appears to be almost to her baseline from previous reports and evaluations. 4. Acute hypoxic respiratory insufficiency Clinical suspicion for underlying pneumonia that may blossom after fluid resuscitation. Patient currently on minimal nasal cannula oxygen, likely secondary to atelectasis. Continue aggressive incentive spirometer and ambulation as tolerated. Patient will need a walking oximetry prior to discharge. BiPAP rescue if necessary overnight. Patient does have a smoking history, so underlying COPD cannot be excluded. 5. Possible recent falls/GERD/anxiety/neuropathy/morbid obesity/anemia Complicates care, management, recovery and prognosis. Initiate fall risk precautions. Decrease in hemoglobin likely secondary to dilution Code Visit Inpatient E&M: 00602 Subs Hosp L2
[2018-07-30] MEDS: Gabapentin 600 MG Tablet PO ×2 (08:38→15:59)
[2018-07-30 09:41] LABS: Bedside Glucose 159 mg/dL (70-110)
[2018-07-30] MEDS: busPIRone 15 MG TABLET 30 MG PO ×2 (10:42→21:09)
[2018-07-30] MEDS: DULoxetine Hcl 60 MG Capsule 120 MG PO (10:43)
[2018-07-30] MEDS: Lidocaine 5% Patch 2 PATCH TOPICAL (10:44)
[2018-07-30] MEDS: guaiFENesin 1,200 MG Tablet 1200 MG PO ×2 (10:44→21:11)
[2018-07-30] MEDS: buPROPion (XL) 300 MG TABLET.XL PO (10:45)
[2018-07-30] MEDS: Pantoprazole Sodium 40 MG Tablet PO (10:45)
[2018-07-30 11:16] LABS: Bedside Glucose 236 mg/dL (70-110)
--- NOTE | 2018-07-30 13:12 | PN_ITS ---
<Shekhar Michael - Last Filed: 07/30/18 13:00> Patient Problems: Active and Suspected Problems Community acquired pneumonia (Acute) Subjective: Pt irritable this AM, states she feels fine and just wants to go home because she has bills and an animal to take care of. She seems unconcerned about bacteremia stating that shes had it before and was fine taking some antibiotic pills and feels that she does not need to be here. I counselled her on the risks of leaving the hospital at this time and the potential side effects of failure to appropriately treat bacteremia including the possibility of endocarditis and . - Physical Exam General: Alert, Oriented x3, Cooperative HEENT: Atraumatic, PERRLA, EOMI, Normocephalic Neck: Supple, No JVD, Negative Carotid Bruits Lungs: Clear to auscultation, Normal air movement Cardiovascular: Regular rate, Murmur - 3/6 systolic murmur best at LSB Abdomen: Bowel Sounds Present, Soft, Non Tender, Obese Extremities: No edema, Capillary Refill Less than 3 Seconds Skin: No rashes, No breakdown Musculoskeletal: No Tenderness to Palpation of Joints or Extremities Neurological: Cranial nerves II-XII grossly intact Psych/Mental Status: Normal Affect, Appropriate, Alert and oriented to time, place, person, mood and affect Vital Signs Temp Pulse Resp BP Pulse Ox 98.0 F 79 16 105/61 96 07/30/18 08:20 07/30/18 08:20 07/30/18 08:24 07/30/18 08:20 07/30/18 08:20 Oxygen Flow Rate (L/min) 2 Oxygen Delivery Method Room Air Weight: 301 lb 2.423 oz Body Mass Index (BMI) 43.6 Finger Stick Blood Glucose 294 Intake and Output for Last 24 Hours 07/28/18 07/29/18 07/30/18 23:59 23:59 23:59 Intake Total 5511 / 5511 6385 / 6385 1014 / 1014 Output Total 1650 / 1650 3125 / 3125 650 / 650 Balance 3861 / 3861 3260 / 3260 364 / 364 Microbiology Past 72 Hours 07/27/18 22:13 Blood Culture - Preliminary Blood Culture (Wb) - Left Forearm Staphylococcus aureus 07/27/18 22:06 Blood Culture - Preliminary Blood Culture (Wb) - Anticubital Left No growth in 48 hours. 05/01/19 21:55 Urine Culture - Final Urine Catheter - Otero Lactobacillus sp. 07/28/18 08:55 Enteric Bacteriology - Final Stool 07/27/18 21:55 Legionella Antigen - Final Urine Catheter - Otero 07/27/18 21:55 Streptococcus pneumoniae Antigen (M - Final Urine Catheter - Otero Laboratory Tests Past 24 Hrs 07/30/18 07/30/18 05:20 05:20 WBC 17.8 H RBC 3.43 L Hgb 9.5 L Hct 29.5 L MCV 86.0 MCH 27.7 MCHC 32.2 RDW 16.6 H RDW Differential 52.5 H Plt Count 375 MPV 9.7 Immature Gran % (Auto) 0.200 Neut % (Auto) 85.7 H Lymph % (Auto) 7.0 L [place] % (Auto) 7.1 Eos % (Auto) 0.0 Baso % (Auto) 0.0 Absolute Neuts (auto) 15.3 H Absolute Lymphs (auto) 1.25 Total Counted Not Reportable Sodium 143 Potassium 4.4 Chloride 113 H Carbon Dioxide 21.0 Anion Gap 9 BUN 40 H Creatinine 1.29 H Estim Creat Clear Calc 53.31 Est GFR (MDRD) Af Amer 56 L Est GFR (MDRD) Non-Af 46 L BUN/Creatinine Ratio 31.0 H Glucose 175 H Calcium 8.3 L POC Glucose 07/30/18 07/30/18 07/29/18 10:56 06:25 20:59 POC Glucose 236 H 159 H 228 H 07/29/18 16:21 POC Glucose 176 H Medical Necessity - Tobacco Use Smoking Status: Current every day smoker Tobacco Use: Cigarettes Assessment/Plan All Active Problems Community acquired pneumonia (Acute) SIRS (systemic inflammatory response syndrome) (Acute) Severe sepsis (Acute) Intractable nausea and vomiting (Acute) UTI (urinary tract infection) (Acute) Severe sepsis (Acute) Severe sepsis (Acute) Overdose (Acute) Unresponsive episode (Acute) Acute hypoxemic respiratory failure (Acute) Lower abdominal pain (Acute) Diarrhea (Acute) Nausea and vomiting (Acute) Pneumonia, bacterial (Acute) UTI (urinary tract infection) (Acute) Diarrhea (Acute) Abdominal pain (Acute) Diarrhea (Resolved) History of Clostridium difficile (Resolved) Acute exacerbation of chronic obstructive pulmonary disease (COPD) (Ruled-out) SIRS with Severe sepsis due to UTI (Ruled-out) Urinary tract infection (Ruled-out) 1. Acute hypoxic respiratory failure with Acute severe sepsis 2/2 Acute RUL CAP, acute cystitis. -No further fevers, WBC steadily improving -Blood culture with Staph aureus. Repeat drawn. -Vancomycin added. Continue Rocephin -DC azithromycin. -Urine culture with lactobacillus. Await final C&S -DC otero cath -there may be uncerlying COPD as well, pt is a smoker and is wheezy. She is on aersosols and solumedrol. Will continue for now. It is not clear if this has been formally diagnosed in the past. -Pt at risk of leaving AMA -ID to see pt Wednesday -Bacteremia with Staph aureus in a pt with recent IV drug use and a heart murmur - likely needs RONALDO. 2. JANESSA 2/2 sepsis - improved. Nephrology following. Continue IV fluids. 3. T2DM with morbid obesity - titrate insulin to response 4. HTN - stable. keep off SUZY given #2. 5. Polysubstance abuse - admitted to IV drug use recently. 6. Nicotine abuse - patch. 7. Chronic back pain, hx drug abuse - no narcotics. Supportive care and no ncontrolled substances. Tolerating lower dose gabapentin 8. hypothyroidism - synthroid 9. Fall - hip xr negative. 10. GERD - on ppi DVT ppx: heparin DC planning: Pt bacteremic. Follow blood cultures. This patient was seen by Shekhar Michael PA-C under the supervision of Dr. Mercado. <Constance Mercado - Last Filed: 07/30/18 14:37> - Physical Exam Vital Signs Temp Pulse Resp BP Pulse Ox 98.0 F 84 16 122/61 H 98 07/30/18 14:07 07/30/18 14:07 07/30/18 14:07 07/30/18 14:07 07/30/18 14:07 Oxygen Flow Rate (L/min) 2 Oxygen Delivery Method Room Air Weight: 136.6 kg Body Mass Index (BMI) 43.6 Finger Stick Blood Glucose 294 Intake and Output for Last 24 Hours 07/28/18 07/29/18 07/30/18 23:59 23:59 23:59 Intake Total 5511 / 5511 6385 / 6385 1014 / 1014 Output Total 1650 / 1650 3125 / 3125 1150 / 1150 Balance 3861 / 3861 3260 / 3260 -136 / -136 Microbiology Past 72 Hours 07/27/18 22:13 Bacteria Detection (PCR) - Final Blood Culture (Wb) - Left Forearm Coag Negative Staph Blood Culture - Preliminary Coag Negative Staph 07/27/18 22:06 Blood Culture - Preliminary Blood Culture (Wb) - Anticubital Left No growth in 48 hours. 07/27/18 21:55 Urine Culture - Final Urine Catheter - Otero Lactobacillus sp. 07/28/18 08:55 Enteric Bacteriology - Final Stool 07/27/18 21:55 Legionella Antigen - Final Urine Catheter - Otero 07/27/18 21:55 Streptococcus pneumoniae Antigen (M - Final Urine Catheter - Otero Laboratory Tests Past 24 Hrs 07/30/18 07/30/18 05:20 05:20 WBC 17.8 H RBC 3.43 L Hgb 9.5 L Hct 29.5 L MCV 86.0 MCH 27.7 MCHC 32.2 RDW 16.6 H RDW Differential 52.5 H Plt Count 375 MPV 9.7 Immature Gran % (Auto) 0.200 Neut % (Auto) 85.7 H Lymph % (Auto) 7.0 L [place] % (Auto) 7.1 Eos % (Auto) 0.0 Baso % (Auto) 0.0 Absolute Neuts (auto) 15.3 H Absolute Lymphs (auto) 1.25 Total Counted Not Reportable Sodium 143 Potassium 4.4 Chloride 113 H Carbon Dioxide 21.0 Anion Gap 9 BUN 40 H Creatinine 1.29 H Estim Creat Clear Calc 53.31 Est GFR (MDRD) Af Amer 56 L Est GFR (MDRD) Non-Af 46 L BUN/Creatinine Ratio 31.0 H Glucose 175 H Calcium 8.3 L POC Glucose 07/30/18 07/30/18 07/29/18 10:56 06:25 20:59 POC Glucose 236 H 159 H 228 H 07/29/18 16:21 POC Glucose 176 H Assessment/Plan This patient was seen in conjunction with ROSCOE Marrero. I have independently interviewed and examined the patient and reviewed pertinent historical, laboratory, and other data. Please refer to ROSCOE Marrero note for his patient's presentation, findings, and recommendations. I have reviewed and his note and concur with his documentation Patient was seen and examined. No new complains. She denied any fever or chills. Blood cultures growing coag neg staph Physical Exam: Gen: Morbidly obese, not pale, not jaundiced CVS:HS I +II, regular, no murmurs RESP: Clinically clear to auscultation GI: BS present and normal, soft, nontender, no palpable organs EXT:No edema Labs: Improving leukocytosis, improving renal function ASSESSMENT: 1. Severe sepsis secondary to community-acquired pneumonia with hypoxia 2. JANESSA, prerenal 3. Hypertension 4. Type II DM 5. Morbid obesity 6. Polysubstance use 7. Nicotine dependence 8. Chronic back pain 9. Bacteremia, coag negative Plan: Continue on ceftriaxone IV Continue on IV fluids Code Visit Inpatient E&M: 45759 Subs Hosp L2
[2018-07-30] MEDS: 0.9% NaCl Peripheral Flush Adult/Peds IV (13:52)
--- NOTE | 2018-07-30 15:42 | NURSING ---
this RN assuming care of pt at this time.
[2018-07-30 16:06] LABS: Bedside Glucose 142 mg/dL (70-110)
[2018-07-30] MEDS: Menthol/Lanolin/Calamine/Znox 113 GM Tube 1 APPLIC TOPICAL (21:09)
[2018-07-30] MEDS: Nystatin Ointment 1 APPLIC TOPICAL (21:11)
[2018-07-30] MEDS: Atorvastatin Calcium 20 MG Tablet PO (21:11)
[2018-07-30] MEDS: Ceftriaxone 1 GM/50 ML BAG IV (21:12)
[2018-07-30] MEDS: QUEtiapine 100 MG Tablet 200 MG PO (21:12)
[2018-07-30 22:41] LABS: Bedside Glucose 237 mg/dL (70-110)
[2018-07-31 02:59] VITALS: PULSE 81
[2018-07-31 03:00] VITALS: BP 137/74; PULSE 82; RESP 16; TEMP 36.7; O2SAT 95
[2018-07-31] MEDS: 0.9% Normal Saline 1,000 ML 100 ML IV (03:02)
[2018-07-31] MEDS: Heparin Injection (Vial) 5,000 UNIT/ML VIAL 5000 UNIT SC (06:26)
[2018-07-31] MEDS: Levothyroxine 150 MCG Tablet PO (06:27)
[2018-07-31] MEDS: Acetaminophen 500 MG Tablet 1000 MG PO (06:27)
[2018-07-31 06:29] LABS: Absolute Lymphocyte Count 1.89 X10^3/ul (0.83-4.51); Absolute Neutrophil Count 9.5 X10^3/uL (2.0-7.7); Hematocrit 29.9 % (37-47); Hemoglobin 9.4 g/dl (12.0-15.0); Lymphocyte # 1.89 X10^3/ul (4.0); Lymphocyte % 15.2 % (19-41); Mean Corp Hgb Conc 31.4 g/gl (32-36); Mean Corpuscular Hgb 27.2 pg (27.0-32.0); Mean Corpuscular Volume 86.4 fL (81-99); Mean Platelet Vol. 9.2 fl (6.2-12.0); Monocyte# 1.01 X10^3/uL; Monocyte% 8.1 % (0-10); Neutrophil # 9.48 X10^3/uL (2.7-7.7); Neutrophil % 76.5 % (47-70); Platelet Count 374 K/mm3 (150-450); RBC Distribution Width CV 16.8 % (11.6-14.6); RBC Distribution Width SD 53.6 fl (35.1-43.9); Red Blood Count 3.46 M/mm3 (4.2-5.4); White Blood Count 12.4 K/mm3 (4.4-11.0)
[2018-07-31 06:32] LABS: POSITIVE COUNT NO; POSITIVE DIFFERENTIAL NO; POSITIVE MORPHOLOGY NO
[2018-07-31 06:36] LABS: Anion Gap 5 (5-15); BUN 31 mg/dL (7-18); BUN/Creat Ratio 35.5 RATIO (10-20); Calcium,Total 8.3 mg/dL (8.5-10.1); Chloride 113 mmol/L (98-107); Creatinine, Serum 0.87 mg/dL (0.55-1.02); EST Glomerular Filtration Rate 72 mL/min (>60); Est Glom Filt Rate - Afr Amer 87 mL/min (>60); Estimated Creatinine Clearance 79.05 ml/min; Glucose 156 mg/dL (74-106); Potassium 4.5 mmol/L (3.5-5.1); Sodium Level 141 mmol/L (136-145)
[2018-07-31] MEDS: Insulin Lispro 100 UNIT/ML INSULN.PEN SQ ×2 (06:37→11:18)
[2018-07-31 07:05] LABS: Bedside Glucose 152 mg/dL (70-110)
[2018-07-31 07:55] VITALS: PULSE 76
[2018-07-31 08:42] VITALS: BP 141/66; PULSE 74; RESP 16; TEMP 36.6; O2SAT 96
[2018-07-31] MEDS: Gabapentin 600 MG Tablet PO (08:51)
--- NOTE | 2018-07-31 09:51 | DCINST_ITS ---
- Discharge Diagnoses Current Active Problems: Current Active and Chronic Problems Community acquired pneumonia (Acute) You will use the following diet at home:: Calorie/Carbohydrate Controlled (specify 1200, 1400, etc) - 1800 tylor / day, Cardiac Your food should be the consistency of: Regular Your liquids should be the consistency of: Regular/Thin Discharge Activity: Return to Normal Activity Allergies/Adverse Reactions: Allergies fentanyl Allergy (Verified 07/27/18 20:12) Rash Iodinated Contrast- Oral and IV Dye [Iodinated Contrast Media - IV Dye] Allergy (Verified 07/27/18 20:12) Hives CAN BE PRE-MEDICATED levofloxacin [From Levaquin] Allergy (Verified 07/27/18 20:12) Rash nitrofurantoin [From Macrobid] Allergy (Verified 07/27/18 20:12) Rash Sulfa (Sulfonamide Antibiotics) Allergy (Verified 07/27/18 20:12) Itching Medications to take at Discharge Atorvastatin Calcium [Lipitor] 20 mg PO QHS 08/28/15 Duloxetine HCl 120 mg PO DAILY 08/28/15 Levothyroxine [Synthroid] 150 mcg PO DAILY 08/28/15 busPIRone [Buspar] 30 mg PO BID #0 11/08/15 Albuterol Inhaler [Ventolin Hfa] 1 - 2 puff INHALATION Q4H PRN PRN #1 inhaler 11/10/15 Pantoprazole Sodium 40 mg PO DAILY 06/01/16 Lisinopril [Zestril] 10 mg PO DAILY 06/28/16 Quetiapine Fumarate [Seroquel] 200 mg PO QHS 06/28/16 Glimepiride [Amaryl] 4 mg PO DAILY 02/23/17 Bupropion HCl [Bupropion Xl] 300 mg PO DAILY 06/05/18 Cyclobenzaprine [Flexeril] 5 mg PO .COMPLEX 06/05/18 Doxepin HCl 50 - 100 mg PO QHS PRN 06/05/18 Empagliflozin [Jardiance] 10 mg PO DAILY 06/05/18 Hydroxychloroquine [Plaquenil] 300 mg PO DAILYCM 06/05/18 Quetiapine Fumarate [Seroquel] 25 mg PO BID PRN 06/05/18 Amoxicillin/Potassium Clav [Augmentin 875-125 Tablet] 1 each PO BID #14 tablet 07/31/18 Cyclobenzaprine [Flexeril] 5 mg PO Q8H PRN PRN #15 tablet 07/31/18 Gabapentin [Neurontin] 600 mg PO BIDCM #28 tablet 07/31/18 Lidocaine [Lidoderm Patch] 1 patch TOPICAL DAILY #14 patch 07/31/18 Menthol [Bengay Vanishing Scent] 1 applic TOPICAL 4X/DAY PRN PRN tube 07/31/18 Nystatin [Mycostatin] 1 applic TOPICAL BID #1 tube 07/31/18 Prednisone 40 mg PO DAILY #10 tablet 07/31/18 The following prescriptions were given: Amoxicillin/Potassium Clav [Augmentin 875-125 Tablet] 1 each PO BID #14 tablet Cyclobenzaprine [Flexeril] 5 mg PO Q8H PRN PRN #15 tablet PRN Reason: Muscle Spasm Gabapentin [Neurontin] 600 mg PO BIDCM #28 tablet Lidocaine [Lidoderm Patch] 1 patch TOPICAL DAILY #14 patch Nystatin [Mycostatin] 1 applic TOPICAL BID #1 tube Prednisone 40 mg PO DAILY #10 tablet Primary Care Physician: Fredy Walsh MD [Primary Care Provider] - Please follow up with your Primary Care Physician in: 1-2 weeks Test Results: Test results from this visit will be discussed in further detail at your follow- up appointment, if applicable. Please Follow Up With: Jose Downey MD When: 2 weeks Please Follow Up With: Nia Boswell DO When: 2 weeks
[2018-07-31] MEDS: busPIRone 15 MG TABLET 30 MG PO (10:06)
[2018-07-31] MEDS: Lidocaine 5% Patch 2 PATCH TOPICAL (10:07)
[2018-07-31] MEDS: guaiFENesin 1,200 MG Tablet 1200 MG PO (10:08)
[2018-07-31] MEDS: Pantoprazole Sodium 40 MG Tablet PO (10:08)
[2018-07-31] MEDS: buPROPion (XL) 300 MG TABLET.XL PO (10:08)
[2018-07-31] MEDS: DULoxetine Hcl 60 MG Capsule 120 MG PO (10:12)
[2018-07-31 11:45] LABS: Bedside Glucose 175 mg/dL (70-110)
[2018-07-31 12:17] VITALS: O2SAT 98
--- NOTE | 2018-07-31 13:04 | PCM.DC.SUM ---
<Shekhar Michael - Last Filed: 07/31/18 13:07> Discharge Date and Diagnosis Date of Admission: 07/27/18 Date of Discharge: 07/31/18 - Primary Discharge Diagnosis Acute hypoxic respiratory failure and Acute severe sepsis 2/2 RUL CAP suspect pneumococcal UTI ruled out JANESSA 2/2 sepsis Suspected COPD with acute exacerbation Acute metabolic encephalopathy 2/2 sepsis IV drug abuse T2DM with morbid obesity HTN Nicotine abuse hypothyroidism chronic back pain GERD - Secondary Discharge Diagnosis Chronic Problems Chronic obstructive lung disease (Chronic) Cigarette smoker (Chronic) Rheumatoid arthritis (Chronic) Leukocytosis (Chronic) likely due to recent high dose steroids Chronic back pain (Chronic) Obesity, morbid, BMI 50 or higher (Chronic) Drug-seeking behavior (Chronic) Diabetes mellitus, type II (Chronic) Psoriatic arthritis (Chronic) HLD (hyperlipidemia) (Chronic) Hypothyroidism (Chronic) Anxiety and depression (Chronic) GERD (gastroesophageal reflux disease) (Chronic) HTN (hypertension) (Chronic) UTI (urinary tract infection) (Chronic) Hospital Course and Treatment Imaging Results: IMAGING: RAD/Chest 1 View (Portable) IMPRESSION: Right upper lobe infiltrate. Consults: [facility] - Nephrology Shayan - Pulmonology Operations: None Procedures: None Summary of Care Provided: Hospital Course: The patient is a 52 year old F with pmhx of polysubstance abuse, DMt2 with morbid obesity, HTN, hypothyroidism, suspected COPD with ongoing nicotine abuse, who presented to the ER after falling at home with right hip pain. She was hypotensive with BP of 80, with elevated lactate, WBC count, fever, SOB with hypoxia requiring up to 4lpm O2 to maintain good sats. She was confused and lethargic. CXR demonstrated RUL pna, she was wheezy, and her UA showed possible UTI. She had JANESSA as well with a creatinine of 4.74 and no hx of kidney disease. She was admitted to the ICU with severe sepsis 2/2 pna, possible UTI, JANESSA, suspected COPD exacerbation, metabolic encephalopathy. Xray of her hip was negative for acute fx. She was given IV azithromycin and rocephin, IV fluids, IV solumedrol and aerosols.. She also admitted that she had used IV drugs, tho she did not know what she had taken stating that somebody else injected it. Her mental status improved with improvement in her breathing, blood pressure, and temperature. She was transitioned to the PCU. Nephrology ([facility]) was consulted given her JANESSA, and this improved to normal levels with IV fluids and holding her nephrotoxic meds. Her gabapentin was reduced given her renal dysfunction and lethargy. Her pain was controllled with non narcotic pain medications well. She was able to be weaned off O2 completely. One of 4 blood cultures showed coag negative staph. This was felt to be contaminant. Urine culture showed lactobacillus and this was felt to be contaminant. Repeat cultures ordered - pending at this time. She was discharged home in stable condition. She will take 5 days of prednisone, continue her home albuterol inhaler, have a total of 10 days of augmentin. She completed 3 days of azithro while here.She will need follow up with her PCP in 1-2 weeks, Nephrology in 1-2 weeks, and Pulmonology in 2 weeks. This patient was seen by Shekhar Michael PA-C under the supervision of Dr. Mercado [] - Physical Exam General: Alert, Oriented x3, Cooperative HEENT: Atraumatic, PERRLA, EOMI, Normocephalic Neck: Supple, No JVD, Negative Carotid Bruits Lungs: Diminished, Rales - BL bases Cardiovascular: Regular rate, No murmurs Abdomen: Bowel Sounds Present, Soft, Non Tender, Obese Extremities: No edema, Capillary Refill Less than 3 Seconds Skin: No rashes, No breakdown Musculoskeletal: No Tenderness to Palpation of Joints or Extremities Neurological: Cranial nerves II-XII grossly intact Psych/Mental Status: Normal Affect, Appropriate Vital Signs Temp Pulse Resp BP Pulse Ox 97.9 F 74 16 141/66 H 98 07/31/18 08:42 07/31/18 08:42 07/31/18 08:42 07/31/18 08:42 07/31/18 12:17 Oxygen Flow Rate (L/min) 2 Oxygen Delivery Method Room Air Weight: 313 lb 0.902 oz Body Mass Index (BMI) 43.6 Finger Stick Blood Glucose 294 Intake and Output for Last 24 Hours 07/29/18 07/30/18 07/31/18 23:59 23:59 23:59 Intake Total 6385 / 6385 3642 / 3642 573 / 573 Output Total 3125 / 3125 1150 / 1150 Balance 3260 / 3260 2492 / 2492 573 / 573 Microbiology Past 72 Hours 07/27/18 22:13 Bacteria Detection (PCR) - Final Blood Culture (Wb) - Left Forearm Coag Negative Staph Blood Culture - Preliminary Coag Negative Staph 07/27/18 22:06 Blood Culture - Preliminary Blood Culture (Wb) - Anticubital Left No growth in 48 hours. 07/27/18 21:55 Urine Culture - Final Urine Catheter - Almazan Lactobacillus sp. 07/28/18 08:55 Enteric Bacteriology - Final Stool Laboratory Tests Past 24 Hrs 07/29/18 07/31/18 07/31/18 06:57 06:07 06:07 WBC 12.4 H RBC 3.46 L Hgb 9.4 L Hct 29.9 L MCV 86.4 MCH 27.2 MCHC 31.4 L RDW 16.8 H RDW Differential 53.6 H Plt Count 374 MPV 9.2 Immature Gran % (Auto) 0.200 Neut % (Auto) 76.5 H Lymph % (Auto) 15.2 L [place] % (Auto) 8.1 Eos % (Auto) 0.0 Baso % (Auto) 0.0 Absolute Neuts (auto) 9.5 H Absolute Lymphs (auto) 1.89 Total Counted Not Reportable Sodium 141 Potassium 4.5 Chloride 113 H Carbon Dioxide 23.0 Anion Gap 5 BUN 31 H Creatinine 0.87 Estim Creat Clear Calc 79.05 Est GFR (MDRD) Af Amer 87 Est GFR (MDRD) Non-Af 72 BUN/Creatinine Ratio 35.5 H Glucose 156 H Calcium 8.3 L Ionized Calcium 4.9 POC Glucose 07/31/18 07/31/18 07/30/18 11:16 06:32 21:03 POC Glucose 175 H 152 H 237 H 07/30/18 15:58 POC Glucose 142 H Discharge Diet: Low fat/ Low Cholesterol, 1800 Calorie Control Diet, 2000 mg Sodium Diet Discharge Activity: Return to Normal Activity Home Medications: Medications to take at Discharge Atorvastatin Calcium [Lipitor] 20 mg PO QHS 08/28/15 Duloxetine HCl 120 mg PO DAILY 08/28/15 Levothyroxine [Synthroid] 150 mcg PO DAILY 08/28/15 busPIRone [Buspar] 30 mg PO BID #0 11/08/15 Albuterol Inhaler [Ventolin Hfa] 1 - 2 puff INHALATION Q4H PRN PRN #1 inhaler 11/10/15 Pantoprazole Sodium 40 mg PO DAILY 06/01/16 Lisinopril [Zestril] 10 mg PO DAILY 06/28/16 Quetiapine Fumarate [Seroquel] 200 mg PO QHS 06/28/16 Glimepiride [Amaryl] 4 mg PO DAILY 02/23/17 Bupropion HCl [Bupropion Xl] 300 mg PO DAILY 06/05/18 Cyclobenzaprine [Flexeril] 5 mg PO .COMPLEX 06/05/18 Doxepin HCl 50 - 100 mg PO QHS PRN 06/05/18 Empagliflozin [Jardiance] 10 mg PO DAILY 06/05/18 Hydroxychloroquine [Plaquenil] 300 mg PO DAILYCM 06/05/18 Quetiapine Fumarate [Seroquel] 25 mg PO BID PRN 06/05/18 Amoxicillin/Potassium Clav [Augmentin 875-125 Tablet] 1 each PO BID #14 tablet 07/31/18 Cyclobenzaprine [Flexeril] 5 mg PO Q8H PRN PRN #15 tablet 07/31/18 Gabapentin [Neurontin] 600 mg PO BIDCM #28 tablet 07/31/18 Lidocaine [Lidoderm Patch] 1 patch TOPICAL DAILY #14 patch 07/31/18 Menthol [Bengay Vanishing Scent] 1 applic TOPICAL 4X/DAY PRN PRN tube 07/31/18 Nystatin [Mycostatin] 1 applic TOPICAL BID #1 tube 07/31/18 Prednisone 40 mg PO DAILY #10 tablet 07/31/18 Following Prescrptions Were Given to Patient: Amoxicillin/Potassium Clav [Augmentin 875-125 Tablet] 1 each PO BID #14 tablet Cyclobenzaprine [Flexeril] 5 mg PO Q8H PRN PRN #15 tablet PRN Reason: Muscle Spasm Gabapentin [Neurontin] 600 mg PO BIDCM #28 tablet Lidocaine [Lidoderm Patch] 1 patch TOPICAL DAILY #14 patch Nystatin [Mycostatin] 1 applic TOPICAL BID #1 tube Prednisone 40 mg PO DAILY #10 tablet Primary Care Physician: Fredy Walsh MD [Primary Care Provider] - Please follow up with your Primary Care Physician in: 1-2 weeks Please Follow Up With: Jose Downey MD When: 2 weeks Please Follow Up With: Nia Boswell DO When: 2 weeks Please Follow Up With: Fredy Walsh MD Disposition: Home Minutes spent on discharge:: 35 Patient Condition:: Stable Medical Necessity - Tobacco Use Smoking Status: Current every day smoker Tobacco Use: Cigarettes Meaningful Use Info Meaningful Use Diagnoses (Choose all that apply): None applicable <Constance Mercado - Last Filed: 07/31/18 15:56> Discharge Date and Diagnosis - Secondary Discharge Diagnosis Chronic Problems Chronic obstructive lung disease (Chronic) Cigarette smoker (Chronic) Rheumatoid arthritis (Chronic) Leukocytosis (Chronic) likely due to recent high dose steroids Chronic back pain (Chronic) Obesity, morbid, BMI 50 or higher (Chronic) Drug-seeking behavior (Chronic) Diabetes mellitus, type II (Chronic) Psoriatic arthritis (Chronic) HLD (hyperlipidemia) (Chronic) Hypothyroidism (Chronic) Anxiety and depression (Chronic) GERD (gastroesophageal reflux disease) (Chronic) HTN (hypertension) (Chronic) UTI (urinary tract infection) (Chronic) Hospital Course and Treatment Summary of Care Provided: This patient was seen in conjunction with ROSCOE Marrero. I have independently interviewed and examined the patient and reviewed pertinent historical, laboratory, and other data. Please refer to ROSCOE Marrero note for his patient's presentation, findings, and recommendations. I have reviewed and his note and concur with his documentation 52-year-old female with past medical history of polysubstance abuse, morbid obesity, type II DM, hypothyroidism, who comes in after a fall and found to be hypotensive with elevated lactic acid as well as white cell count any fever. Patient was found to have community-acquired pneumonia, which chest x-ray showed right upper lobe pneumonia. She was initially managed in the ICU, given IV fluids, started on IV antibiotics. Her urine tox was positive for amphetamine and methamphetamines. Initial blood cultures grew coag negative staph which was later on believed to be a contaminant. Urine cultures grew lactobacillus species which was probably also contaminated. Repeat blood cultures were pending at time of discharge. Acute kidney injury was resolved at the time of discharge. On the day of discharge, physical exam was: Gen: Morbidly obese, not pale, not jaundiced CVS:HS I +II, regular, no murmurs RESP: Clinically clear to auscultation GI: BS present and normal, soft, nontender, no palpable organs EXT:No edema ASSESSMENT: 1. Severe sepsis secondary to community-acquired pneumonia with hypoxia 2. JANESSA, prerenal 3. Hypertension 4. Type II DM 5. Morbid obesity 6. Polysubstance use 7. Nicotine dependence 8. Chronic back pain 9. Bacteremia, coag negative, likely contaminant - Physical Exam Vital Signs Temp Pulse Resp BP Pulse Ox 97.9 F 74 16 141/66 H 98 07/31/18 08:42 07/31/18 08:42 07/31/18 08:42 07/31/18 08:42 07/31/18 12:17 Oxygen Flow Rate (L/min) 2 Oxygen Delivery Method Room Air Weight: 142 kg Body Mass Index (BMI) 43.6 Finger Stick Blood Glucose 294 Intake and Output for Last 24 Hours 07/29/18 07/30/18 07/31/18 23:59 23:59 23:59 Intake Total 6385 / 6385 3642 / 3642 573 / 573 Output Total 3125 / 3125 1150 / 1150 Balance 3260 / 3260 2492 / 2492 573 / 573 Microbiology Past 72 Hours 07/27/18 22:13 Bacteria Detection (PCR) - Final Blood Culture (Wb) - Left Forearm Coag Negative Staph Blood Culture - Preliminary Coag Negative Staph 07/27/18 22:06 Blood Culture - Preliminary Blood Culture (Wb) - Anticubital Left No growth in 48 hours. 07/27/18 21:55 Urine Culture - Final Urine Catheter - Almazan Lactobacillus sp. 07/28/18 08:55 Enteric Bacteriology - Final Stool Laboratory Tests Past 24 Hrs 07/29/18 07/31/18 07/31/18 06:57 06:07 06:07 WBC 12.4 H RBC 3.46 L Hgb 9.4 L Hct 29.9 L MCV 86.4 MCH 27.2 MCHC 31.4 L RDW 16.8 H RDW Differential 53.6 H Plt Count 374 MPV 9.2 Immature Gran % (Auto) 0.200 Neut % (Auto) 76.5 H Lymph % (Auto) 15.2 L [place] % (Auto) 8.1 Eos % (Auto) 0.0 Baso % (Auto) 0.0 Absolute Neuts (auto) 9.5 H Absolute Lymphs (auto) 1.89 Total Counted Not Reportable Sodium 141 Potassium 4.5 Chloride 113 H Carbon Dioxide 23.0 Anion Gap 5 BUN 31 H Creatinine 0.87 Estim Creat Clear Calc 79.05 Est GFR (MDRD) Af Amer 87 Est GFR (MDRD) Non-Af 72 BUN/Creatinine Ratio 35.5 H Glucose 156 H Calcium 8.3 L Ionized Calcium 4.9 POC Glucose 07/31/18 07/31/18 07/30/18 11:16 06:32 21:03 POC Glucose 175 H 152 H 237 H 07/30/18 15:58 POC Glucose 142 H Code Visit Inpatient E&M: 41399 Disch Hosp
== END 2018-07-31 12:35 | disposition home or self-care (01) | DRG 871 ==
LOC: ED 07-28 00:22 → ICU 07-28 01:13 → PCU 07-29 09:23 → ICU 07-29 09:33
PROVIDERS: Internal Medicine Critical Care Medicine; Internal Medicine Nephrology; Physician Assistant; Admitting Provider Hospitalist; Emergency Provider Emergency Medicine; Family Provider Family Medicine; PCP Family Medicine; Referring Provider Hospitalist; Visit Provider Internal Medicine
DX: A41.9 Sepsis, unspecified organism (principal); G93.41 Metabolic encephalopathy; J13 Pneumonia due to Streptococcus pneumoniae; J96.01 Acute respiratory failure with hypoxia; N17.9 Acute kidney failure, unspecified; Z68.41 Body mass index [BMI] 40.0-44.9, adult; J44.1 Chronic obstructive pulmonary disease with (acute) exacerbation; E03.9 Hypothyroidism, unspecified; R65.20 Severe sepsis without septic shock; E66.01 Morbid (severe) obesity due to excess calories; R09.02 Hypoxemia; R06.89 Other abnormalities of breathing; G89.29 Other chronic pain; M54.9 Dorsalgia, unspecified; K21.9 Gastro-esophageal reflux disease without esophagitis; F19.10 Other psychoactive substance abuse, uncomplicated; E11.9 Type 2 diabetes mellitus without complications; F17.210 Nicotine dependence, cigarettes, uncomplicated; E78.5 Hyperlipidemia, unspecified; I10 Essential (primary) hypertension
CPT/HCPCS: 36415; 51702; 71045; 73502; 80048; 80053; 80076; 80307; 81001; 82330; 82570; 82962; 83605; 84300; 84443; 84484; 85025; 87040; 87086; 87088; 87149; 87449; 87506; 93005; 94640; 94667; 94668; 94760; 97161; 97166; 97530; 97535; 97802; 99285; J7030; J7040; A4216; J0696; J7799

== ENCOUNTER → 2018-08-10 12:13 | Outpatient (CLI) | payer MEDICARE, SELFPAY ==
[2018-07-28 01:47] VITALS: BMI 43.6
[2018-08-10 13:45] LABS: Anion Gap 6 (5-15); BUN 11 mg/dL (7-18); BUN/Creat Ratio 12.3 RATIO (10-20); Calcium,Total 8.2 mg/dL (8.5-10.1); Chloride 106 mmol/L (98-107); EST Glomerular Filtration Rate 70 mL/min (>60); Est Glom Filt Rate - Afr Amer 85 mL/min (>60); Glucose 133 mg/dL (74-106); Potassium 4.4 mmol/L (3.5-5.1); Sodium Level 137 mmol/L (136-145)
== END ==
PROVIDERS: Family Provider Family Medicine; PCP Family Medicine; Visit Provider Internal Medicine Nephrology
DX: N17.9 Acute kidney failure, unspecified (principal)
CPT/HCPCS: 36415; 80048

== ENCOUNTER → 2018-08-18 14:27 | Outpatient (CLI) | payer MEDICARE, MEDICAID, SELFPAY ==
[2018-08-18 13:26] VITALS: BMI 43.6
--- NOTE | 2018-08-18 14:31 | RAD_ITS ---
STUDY: X-RAY CHEST REASON FOR EXAM: Female, 52 years old. Shortness of breath/dyspnea. TECHNIQUE: PA and lateral views of the chest. COMPARISON: Comparison is made with prior study dated July 27, 2018. FINDINGS: Residual infiltration is seen in the right upper lobe although there has been a marked degree of improvement. Further follow-up is recommended. Mild increased markings in the left midlung suggestive of underlying atelectasis. There is no demonstrated pleural abnormality. Normal size heart. Normal mediastinum and tony. Normal visualized pulmonary arteries. Normal visualized aortic arch and descending thoracic aorta. There are mild degenerative changes of the visualized thoracic spine. Normal visualized ribs, clavicles, and shoulders. There is no demonstrated abnormality of the visualized soft tissue structures of the upper abdomen. RAD/Chest PA and Lateral IMPRESSION: Focal residual infiltrate in the right upper lobe although there has been marked improvement. Further follow-up is recommended. Linear density in the left mid lung suggestive of atelectasis Electronically Signed: Zander Bethea, at 15:06 EDT , Service support ,
== END ==
PROVIDERS: Family Provider Family Medicine; PCP Family Medicine; Referring Provider Nurse Practitioner Acute Care; Visit Provider Nurse Practitioner Acute Care
DX: J18.9 Pneumonia, unspecified organism (principal); R05 Cough
CPT/HCPCS: 71046; 87070; 87077; 87186; 87205

== ENCOUNTER 2018-09-12 15:18 | Emergency (ER) | payer MEDICARE, MEDICAID, SELFPAY ==
[2018-08-18 13:26] VITALS: BMI 43.6
[2018-09-12 15:19] VITALS: BP 122/95; PULSE 116; RESP 18; TEMP 36.4; O2SAT 96; BMI 42.1
--- NOTE | 2018-09-12 15:25 | RAD_ITS ---
STUDY: X-RAY - LEFT WRIST REASON FOR EXAM: Female, 52 years old. Wrist pain following a fall. TECHNIQUE: 3 view(s) of the wrist were obtained. COMPARISON: Comparison is made with prior study dated March 14, 2018. FINDINGS: Normal visualized distal radius and ulna. Normal radiocarpal articulation. Normal distal radioulnar articulation. Normal carpal bones. Normal carpal articulations. Normal carpometacarpal articulation of the thumb. Normal second through fifth carpometacarpal articulations. Normal visualized metacarpal bones. The soft tissue structures are unremarkable. RAD/Wrist min 3 Views IMPRESSION: Normal x-ray examination of the wrist. Electronically Signed: Zander Bethea, at 15:56 EDT , Service support ,
--- NOTE | 2018-09-12 15:32 | ED.VISSUMM ---
- ER Visit Summary Date of Service: 09/12/18 Chief Complaint: Fall History of Present Illness: The patient is a 52 F presents to the emergency department after mechanical fall. The patient was in her normal state of health. She was walking with her dog on the leash. She tripped over an uneven sidewalk. She fell striking her left hand and left wrist. She did not strike her head. She denies loss of consciousness. She denies other injury. She is otherwise been in her normal state of health. Physical Examination: Exam is relatively unremarkable. The patient does have some tenderness over the ulnar styloid. The skin is intact. Her pulses are normal. There is no gross laxity. Hand is intact. Compartments are soft. Test Results: [] Emergency Department Course and Treatment: [Plain films were obtained of the wrist and of the hand. These are both unremarkable for acute fracture. The patient was given Tylenol. She was placed in an Reese wrap for comfort. She will continue ice and anti-inflammatories. She will be discharged home. Treatment Plan: [] Disposition: Discharge Impression: 1. Left wrist contusion This note was generated with [employer] dictation software. It may contain incorrect words, spelling, and punctuation that were not noted in review of the chart prior to signing ED Disposition - Plan for ED Patient: Instructions: ED Sprain Wrist Prescriptions: Prednisone [Deltasone] 40 mg PO DAILY #10 tab Referrals: Fredy Walsh MD [Primary Care Provider] -
[2018-09-12] MEDS: Acetaminophen 500 MG Tablet 1000 MG PO (15:34)
--- NOTE | 2018-09-12 15:35 | RAD_ITS ---
STUDY: X-RAY - LEFT HAND REASON FOR EXAM: Female, 52 years old. Pain following a fall. TECHNIQUE: 3 view(s) of the hand. COMPARISON: None. FINDINGS: Normal radiocarpal articulation. Normal distal radioulnar joint. Normal visualized carpal bones. Normal carpal articulations Normal carpometacarpal articulation of the thumb. Normal second through fifth carpometacarpal joints. Normal metacarpi. Normal metacarpophalangeal joint of the thumb. Normal interphalangeal joint of the thumb. Normal proximal and distal phalanges of the thumb. Normal metacarpophalangeal joints of the second through fifth fingers. Normal proximal and distal interphalangeal joints of the second through fifth fingers. Normal phalanges of the second through fifth fingers. Soft tissue swelling. RAD/Hand Min 3 Views IMPRESSION: Soft tissue swelling. Electronically Signed: Zander Bethea, at 15:53 EDT , Service support ,
== END 2018-09-12 16:13 | disposition home or self-care (01) ==
LOC: ED 16:11
PROVIDERS: Emergency Provider Emergency Medicine; Family Provider Family Medicine; PCP Family Medicine
DX: S60.212A Contusion of left wrist, initial encounter (principal); W18.09XA Striking against other object with subsequent fall, initial encounter; Y93.K1 Activity, walking an animal; Y92.9 Unspecified place or not applicable; Y99.9 Unspecified external cause status; E11.9 Type 2 diabetes mellitus without complications; I10 Essential (primary) hypertension; Z72.0 Tobacco use; Z79.84 Long term (current) use of oral hypoglycemic drugs; Z79.899 Other long term (current) drug therapy
CPT/HCPCS: 73110; 73130; 99282

== ENCOUNTER → 2018-10-24 10:18 | Outpatient (CLI) | payer MEDICARE, MEDICAID, SELFPAY ==
--- NOTE | 2018-10-24 10:54 | RAD_ITS ---
STUDY: X-RAY CHEST REASON FOR EXAM: Female, 52 years old. Pneumonia. TECHNIQUE: PA and lateral views of the chest. COMPARISON: August 18, 2018. FINDINGS: Cardiac silhouette unremarkable. Pulmonary vascularity unremarkable. Aorta ectatic. No new focal patchy airspace opacities. No pleural effusions. Mild hyperaeration with persistent bibasilar atelectasis/scar. Continued resolving right upper lobe airspace disease. Post surgical changes at the left upper quadrant. Osseous structures intact. No pneumothorax. RAD/Chest PA and Lateral IMPRESSION: Continued resolving right upper lobe airspace disease Hyperaeration with basilar atelectasis/scar Electronically Signed: Tk Piña DO at 8:29 EDT Tel , Service support ,
[2018-10-24 11:22] LABS: Absolute Lymphocyte Count 3.75 X10^3/uL (0.83-4.51); Absolute Neutrophil Count 3.4 X10^3/uL (2.0-7.7); Basophil# 0.07 X10^3/uL; Basophil% 0.9 % (0-1); Eosinophil# 0.33 X10^3/uL; Hematocrit 39.8 % (37-47); Hemoglobin 12.4 g/dL (12.0-15.0); Lymphocyte # 3.75 X10^3/ul (4.0); Mean Corp Hgb Conc 31.2 g/dL (32-36); Mean Corpuscular Hgb 27.9 pg (27.0-32.0); Mean Corpuscular Volume 89.4 fL (81-99); Mean Platelet Vol. 10.5 fl (6.2-12.0); Monocyte# 0.62 X10^3/uL; Monocyte% 7.6 % (0-10); NRBC Flagged by Analyzer 0 % (0-5); Neutrophil # 3.37 X10^3/uL (2.7-7.7); Neutrophil % 41.3 % (47-70); Platelet Count 255 K/mm3 (150-450); RBC Distribution Width CV 15.8 % (11.6-14.6); RBC Distribution Width SD 51.6 fl (35.1-43.9); Red Blood Count 4.45 M/mm3 (4.2-5.4); White Blood Count 8.2 K/mm3 (4.4-11.0)
[2018-10-24 11:49] LABS: Prolactin 8.4 ng/mL
[2018-10-27 03:07] LABS: QNTFERON TB Mitogen Value > 10.00 IU/mL (.); QNTFERON TB Nil Value 0.04 IU/mL (.); QNTFERON TB1+ Ag Value 0.05 IU/mL (.); QNTFERON TB2+ Ag Value 0.03 IU/mL (.)
[2018-10-27 15:23] LABS: QNTIFERON TB Positive Criteria Negative (Negative)
== END ==
PROVIDERS: Family Provider Family Medicine; PCP Family Medicine
DX: J18.9 Pneumonia, unspecified organism (principal)
CPT/HCPCS: 36415; 71046; 84146; 85025; 86480

== ENCOUNTER → 2018-11-02 10:12 | Outpatient (CLI) | payer MEDICARE, MEDICAID, SELFPAY | PROVIDERS: Family Provider Family Medicine; PCP Family Medicine; Referring Provider Internal Medicine Infectious Disease; Visit Provider Internal Medicine Infectious Disease | DX: R05 Cough (principal); Z86.14 Personal history of Methicillin resistant Staphylococcus aureus infection; S81.802A Unspecified open wound, left lower leg, initial encounter; X58.XXXA Exposure to other specified factors, initial encounter; Y93.9 Activity, unspecified; Y92.9 Unspecified place or not applicable; Y99.9 Unspecified external cause status | CPT/HCPCS: 87070; 87077; 87186; 87205 ==

== ENCOUNTER → 2018-11-18 14:54 | Outpatient (CLI) | payer MEDICARE, MEDICAID, SELFPAY ==
[2018-11-08 12:44] VITALS: BMI 35.6
--- NOTE | 2018-11-18 14:58 | CT_ITS ---
STUDY: CT CHEST WITHOUT CONTRAST REASON FOR EXAM: Female, 52 years old. Persistent pneumonia RADIATION DOSAGE (If Supplied By Facility): CTDIvol = ( 20.72 ) mGy, DLP = ( 716.26 ) mGycm TECHNIQUE: Transaxial imaging was performed without the administration of intravenous contrast material. Multiplanar coronal and sagittal images were reformatted. Individualized dose optimization techniques were used for this CT. COMPARISON: October 24, 2018 and July 27, 2018 chest x-ray FINDINGS: There is focal bronchiectasis with scarring and atelectasis in the posterior right upper lobe. There is no demonstrated pleural abnormality. There are calcifications of the coronary arteries. Normal mediastinum. Normal hilar regions. Normal unenhanced pulmonary arteries. Normal aorta arch and descending thoracic aorta. There are multi-level degenerative changes of the thoracic spine. Compression fracture of T12 with 20% loss of height. There is no demonstrated abnormality of the visualized upper abdomen. CT/Chest without Contrast IMPRESSION: There is focal bronchiectasis and scarring in the right upper lobe. Electronically Signed: Mj Fuentes MD at 15:32 EDT , Service support ,
== END ==
PROVIDERS: Family Provider Family Medicine; PCP Family Medicine; Referring Provider Nurse Practitioner Acute Care; Visit Provider Nurse Practitioner Acute Care
DX: J18.9 Pneumonia, unspecified organism (principal)
CPT/HCPCS: 71250

== ENCOUNTER 2020-01-31 10:38 | Inpatient (IN) | payer MEDICARE, MEDICAID, SELFPAY ==
[2018-11-08 12:44] VITALS: BMI 35.6
[2020-01-31] VITALS (35 sets, daily range): BP systolic 64–164; BP diastolic 33–120; PULSE 61–117; RESP 12–39; TEMP 36.6–38.2; O2SAT 84–997; BMI 59.8; BMI 61.0
--- NOTE | 2020-01-31 10:58 | EKG12_ITS ---
Test Reason : Blood Pressure : / mmHG Vent. Rate : 117 BPM Atrial Rate : 117 BPM P-R Int : 122 ms QRS Dur : 080 ms QT Int : 328 ms P-R-T Axes : 056 076 051 degrees QTc Int : 457 ms Sinus tachycardia with Fusion complexes Low voltage QRS Borderline ECG Confirmed by ZOË DANG, EDDIE ([id number]), editorial intern MURPHY GIMENEZ ([id number]) on 02/01/2020 12:08:39 PM Referred By: PAWAN Confirmed By:KAYLA CAMP MD
--- NOTE | 2020-01-31 10:59 | CT_ITS ---
STUDY: CT BRAIN WITHOUT CONTRAST REASON FOR EXAM: Female, 54 years old. PATIENT FOUND LAYING IN BED WITH VOMIT AND BM. PT IS VERY AGITATED RADIATION DOSAGE (If Supplied By Facility): CTDIvol = ( 44.99 ) mGy, DLP = ( 1032.33 ) mGycm TECHNIQUE: Transaxial CT imaging of the brain was performed without administration of intravenous contrast material. Individualized dose optimization techniques were used for this CT. COMPARISON: Comparison is made with prior study dated 07/19/2016. FINDINGS: Normal soft tissue structures. Normal calvarium. Normal size ventricles and extra-axial spaces for the patient''s age. Normal white matter tracts of the cerebral hemispheres. Normal basal ganglia and thalami. Normal brainstem. Normal cerebellum. There is no intracranial hemorrhage. There are no findings of an acute ischemic infarction. Normal visualized paranasal sinuses. CT/Brain/Head without Contrast IMPRESSION: Normal unenhanced CT scan of the brain. Electronically Signed: Zander Bethea, at 13:54 EST , Service support ,
--- NOTE | 2020-01-31 11:44 | ED.DCSUM_ITS ---
History of Present Illness Chief Complaint: Alt LOC Informant: Patient Narrative: Patient is a 54-year-old female with complex medical history including COPD, heavy tobacco use and urosepsis presenting from assisted living with altered mental status. Patient was found in her apartment covered in stool and vomit. She states she been having abdominal pain for a couple days. She is also found to be hypoxic with an O2 saturation of 83% on room air. She states she does not wear oxygen at baseline. Patient is brought to the emergency room for further evaluation. Patient is complaining of diffuse abdominal pain but has no other complaints at this time. Past Medical History - Allergies and Home Meds Allergies/Adverse Reactions: Allergies fentanyl Allergy (Verified 09/12/18 15:18) Rash Iodinated Contrast Media [Iodinated Contrast Media - IV Dye] Allergy (Verified 09/12/18 15:18) Hives CAN BE PRE-MEDICATED levofloxacin [From Levaquin] Allergy (Verified 09/12/18 15:18) Rash nitrofurantoin [From Macrobid] Allergy (Verified 09/12/18 15:18) Rash Sulfa (Sulfonamide Antibiotics) Allergy (Verified 09/12/18 15:18) Itching Past Medical History: - - COPCOPD, RA, diabetes mellitus type 2, psoriatic arthritis, hypertension, hypothyroid, GERD, anxiety/depression Surgical History: cholecystectomy, gastric bypass, - - Multiple back surgeries, ?6 Smoking Status: Current every day smoker - Family History Paternal Family History: Reports: Cancer - Lung CA, tobacco use. Offspring Family History: Reports: - - Obesity Maternal Family History: Reports: Stroke Review of Systems General: Reports: Malaise. Denies: Chills, Fever, Sweats Eyes: Denies: Visual changes - bilaterally, Diplopia ENT: Denies: Rhinorrhea, Sore throat Cardiovascular: Denies: Chest pain, Palpitations Respiratory: Reports: Dyspnea, Cough. Denies: Dyspnea on exertion Gastrointestinal: Reports: Abdominal pain, Nausea, Vomiting. Denies: Diarrhea, Melena, Hematochezia Genitourinary: Denies: Dysuria, Hematuria, Frequency Musculoskeletal: Denies: Back pain, Extremity Pain Skin: Denies: Rash, Wounds Neurological: Reports: Weakness - generalized . Denies: Headache, Numbness Physical Exam Vital Signs/Narrative: Vital Signs Temp Pulse Resp BP Pulse Ox 01/31/20 10:39 98.4 F 61 24 H 112/76 84 Inital Vital Signs reviewed: Yes General: Well nourished, Well developed, Obese, Unkempt, - - covered in dried stool Head: Normocephalic, Atraumatic Eyes: Perrl, EOMI ENT: Moist mucous membranes, No rhinorrhea Neck: Supple, Nontender Cardiovascular: Regular rhythm, No murmurs, Tachycardia Respiratory: Chest nontender, Rhonchi, Diminished Abdomen: Soft, Nontender, Nondistended, Normal bowel sounds Back: Nontender, Normal Inspection Extremities: Nontender, No edema. Negative for: Edema Skin: Normal color, No rash Neurological: Alert, Cranial nerves II-XII grossly intact, Normal Strength, Normal Sensation, Confused, Inattentive Psychological: Normal affect, Normal Mood Diagnostic/Tx/Re-eval Clinical Impression(s) from Imaging Studies Brain CT 01/31/20 10:59 IMPRESSION: Normal unenhanced CT scan of the brain. Electronically Signed: Zander Bethea, at 13:54 EST , Service support , Abdomen/Pelvis CT 01/31/20 12:50 IMPRESSION: Dense airspace disease in the right middle lobe and right lower lobe. No acute abnormality is seen. Electronically Signed: Zander Bethea, at 13:55 EST , Service support , Chest CT 01/31/20 13:04 IMPRESSION: Extensive airspace disease in the right hemithorax as described. With the patient''s history of vomiting, this may represent aspiration pneumonia. Electronically Signed: Zander Bethea, at 13:56 EST , Service support , Laboratory Data 01/31/20 01/31/20 01/31/20 11:06 11:10 11:10 WBC 15.9 H RBC 4.17 L Hgb 11.5 L Hct 37.1 MCV 89.0 MCH 27.6 MCHC 31.0 L RDW Std Deviation 45.6 H RDW Coeff of Ralph 14.1 Plt Count 328 MPV 9.6 Immature Gran % (Auto) 0.400 Neut % (Auto) 73.8 H Lymph % (Auto) 15.5 L Glascock % (Auto) 9.0 Eos % (Auto) 0.9 Baso % (Auto) 0.4 Absolute Neuts (auto) 11.8 H Absolute Lymphs (auto) 2.47 Nucleated RBC % 0 PT 13.4 INR 1.1 APTT 26.7 Specimen Type Sample Site pH Bicarbonate Actual Total CO2 Base Excess O2 Saturation O2 % ABG pCO2 ABG pO2 Bear Test O2 Delivery Device Sodium Potassium Chloride Carbon Dioxide Anion Gap BUN Creatinine Estim Creat Clear Calc Est GFR (MDRD) Af Amer Est GFR (MDRD) Non-Af BUN/Creatinine Ratio Glucose Lactic Acid Calcium Total Bilirubin AST ALT Alkaline Phosphatase Total Creatine Kinase Troponin I Total Protein Albumin Globulin Albumin/Globulin Ratio Lipase Urine Color Urine Clarity Urine pH Ur Specific [place] Urine Protein Urine Glucose (UA) Urine Ketones Urine Occult Blood Urine Nitrite Urine Bilirubin Urine Urobilinogen Ur Leukocyte Esterase Urine RBC Urine WBC Ur Squamous Epith Cells Urine Bacteria Urine Mucus Urine Opiates Screen Urine Methadone Screen Ur Barbiturates Screen Ur Phencyclidine Scrn Ur Amphetamines Screen U Methamphetamin-MDMA U Benzodiazepines Scrn Urine Cocaine Screen U Cannabinoids Screen Ur Drug Screen Comment COVID-19 (AMANDA) Negative 01/31/20 01/31/20 01/31/20 11:10 11:10 11:10 WBC RBC Hgb Hct MCV MCH MCHC RDW Std Deviation RDW Coeff of Ralph Plt Count MPV Immature Gran % (Auto) Neut % (Auto) Lymph % (Auto) Glascock % (Auto) Eos % (Auto) Baso % (Auto) Absolute Neuts (auto) Absolute Lymphs (auto) Nucleated RBC % PT INR APTT Specimen Type Sample Site pH Bicarbonate Actual Total CO2 Base Excess O2 Saturation O2 % ABG pCO2 ABG pO2 Bear Test O2 Delivery Device Sodium 141 Potassium 4.1 Chloride 106 Carbon Dioxide 24.0 Anion Gap 11 BUN 27 H Creatinine 1.96 H Estim Creat Clear Calc 31.91 Est GFR (MDRD) Af Amer 34 L Est GFR (MDRD) Non-Af 28 L BUN/Creatinine Ratio 13.8 Glucose 156 H Lactic Acid 6.8 H* Calcium 8.9 Total Bilirubin 0.30 AST 17 ALT 25 Alkaline Phosphatase 56 Total Creatine Kinase 301 H Troponin I < 0.015 Total Protein 6.3 L Albumin 2.8 L Globulin 3.5 Albumin/Globulin Ratio 0.8 L Lipase 65 L Urine Color Urine Clarity Urine pH Ur Specific [place] Urine Protein Urine Glucose (UA) Urine Ketones Urine Occult Blood Urine Nitrite Urine Bilirubin Urine Urobilinogen Ur Leukocyte Esterase Urine RBC Urine WBC Ur Squamous Epith Cells Urine Bacteria Urine Mucus Urine Opiates Screen Urine Methadone Screen Ur Barbiturates Screen Ur Phencyclidine Scrn Ur Amphetamines Screen U Methamphetamin-MDMA U Benzodiazepines Scrn Urine Cocaine Screen U Cannabinoids Screen Ur Drug Screen Comment COVID-19 (AMANDA) 01/31/20 01/31/20 01/31/20 12:04 12:10 12:10 WBC RBC Hgb Hct MCV MCH MCHC RDW Std Deviation RDW Coeff of Ralph Plt Count MPV Immature Gran % (Auto) Neut % (Auto) Lymph % (Auto) Gl[place]ock % (Auto) Eos % (Auto) Baso % (Auto) Absolute Neuts (auto) Absolute Lymphs (auto) Nucleated RBC % PT INR APTT Specimen Type ART Sample Site L Radial pH 7.37 Bicarbonate Actual 22.4 Total CO2 24 Base Excess -3 L O2 Saturation 93 L O2 % 100 ABG pCO2 38.4 ABG pO2 68 L Bear Test Positive O2 Delivery Device NRB Sodium Potassium Chloride Carbon Dioxide Anion Gap BUN Creatinine Estim Creat Clear Calc Est GFR (MDRD) Af Amer Est GFR (MDRD) Non-Af BUN/Creatinine Ratio Glucose Lactic Acid Calcium Total Bilirubin AST ALT Alkaline Phosphatase Total Creatine Kinase Troponin I Total Protein Albumin Globulin Albumin/Globulin Ratio Lipase Urine Color Yellow Urine Clarity Sl Cloudy Urine pH 5.0 Ur Specific [place] 1.020 Urine Protein Negative Urine Glucose (UA) Normal Urine Ketones 5 H Urine Occult Blood 10 H Urine Nitrite Positive H Urine Bilirubin Negative Urine Urobilinogen Normal Ur Leukocyte Esterase 25 H Urine RBC 0 SEEN Urine WBC 5-10 SEEN Ur Squamous Epith Cells 25-50 SEEN Urine Bacteria 0 SEEN Urine Mucus 0 SEEN Urine Opiates Screen NEGATIVE Urine Methadone Screen NEGATIVE Ur Barbiturates Screen NEGATIVE Ur Phencyclidine Scrn NEGATIVE Ur Amphetamines Screen NEGATIVE U Methamphetamin-MDMA NEGATIVE U Benzodiazepines Scrn NEGATIVE Urine Cocaine Screen NEGATIVE U Cannabinoids Screen NEGATIVE Ur Drug Screen Comment COVID-19 (AMANDA) - Rhythm Strip Rhythm Strip: Sinus Tach Rate: 117 Ectopy: None - EKG Initial EKG Interpretation: Sinus Tachycardia, - - Sinus tachycardia at a rate of 117 Normal axis Normal intervals Normal ST segment however there is poor baseline at V1 through V3 - Medical Decision Making Patient is evaluated for altered mental status and hypoxia. On arrival she is not altered but she is mildly somnolent. She is requiring submental oxygen on wearing a nonrebreather. She does keep taking it off however. She is coarse breath sounds throughout. There is report of vomiting on scene so I am concerned about aspiration pneumonia. Patient is actually complaining of abdominal pain. Patient starts of increased work of breathing and agitation so an ABG is obtained and she is put on BiPAP. She does have improvement with this. ABG shows hypoxia without hypercapnia. Patient's PO2 is turned up. Patient has a significant lactic acidosis as well as leukocytosis. She also appears dehydrated with a doubling of her creatinine/acute kidney injury. Urinalysis shows nitrites but is not highly consistent with infection. Urine culture and blood cultures are obtained. Patient is placed on broad-spectrum antibiotics, vancomycin and Zosyn. Given her hypoxia and respiratory symptoms I suspect pneumonia as a cause. Patient is given a 30 cc/kg fluid bolus in the ER. Covid test is obtained which is ultimately negative. CT the abdomen and pelvis, chest and brain are obtained. Brain for the altered mental status and abdomen pelvis for abdominal pain. The abdomen pelvis showed a dense infiltrate so it was extended up to the chest. Patient has significant right middle and lower lobe infiltrates. This is consistent with an aspiration. Patient becomes more agitated and is given a very small dose of IV Ativan. When she returned from CT she becomes hypotensive and has decreased responsiveness. Patient is saturating at 100% on BiPAP and is given push dose of epinephrine by myself. Patient is given a total of 0.01 mg of epinephrine. She has improvement of her blood pressure. At this time an ultrasound-guided IV is placed for better ainsley pheral access. Levophed is ordered but patient ultimately does not require it as she seems to be fluid responsive now. As patient is not currently requiring Levophed and has good peripheral access, emergent central line is not placed at this time. Consult is made for the ICU and patient is admitted to the hospital service. Patient is accepted to the ICU in critical but stable condition. - Critical Care Time Critical care time (excluding procedures): 30-74 minutes - 60 minutes?frequent bedside evaluation, bedside care, discussing case with ICU as well as admitting physician. Chart review. Diagnosis of septic shock. ED Disposition - Plan for ED Patient: Disposition: Acute Care Hospital [facility] Diagnosis: Septic shock, Aspiration pneumonia, Acute respiratory failure with hypoxia, JANESSA (acute kidney injury), Lactic acidosis, Leukocytosis
[2020-01-31 11:48] LABS: Absolute Lymphocyte Count 2.47 X10^3/uL (0.83-4.51); Absolute Neutrophil Count 11.8 X10^3/uL (2.0-7.7); Basophil# 0.06 X10^3/uL; Basophil% 0.4 % (0-1); Eosinophil# 0.15 X10^3/uL; Eosinophils% 0.9 % (0-5); Hematocrit 37.1 % (37-47); Hemoglobin 11.5 g/dL (12.0-15.0); Lymphocyte # 2.47 X10^3/ul (4.0); Lymphocyte % 15.5 % (19-41); Mean Corpuscular Hgb 27.6 pg (27.0-32.0); Mean Platelet Vol. 9.6 fl (6.2-12.0); Monocyte# 1.44 X10^3/uL; NRBC Flagged by Analyzer 0 % (0-5); Neutrophil # 11.75 X10^3/uL (2.7-7.7); Neutrophil % 73.8 % (47-70); Platelet Count 328 K/mm3 (150-450); RBC Distribution Width CV 14.1 % (11.6-14.6); RBC Distribution Width SD 45.6 fl (35.1-43.9); Red Blood Count 4.17 M/mm3 (4.2-5.4); White Blood Count 15.9 K/mm3 (4.4-11.0)
[2020-01-31] MEDS: 0.9% Normal Saline 1,000 ML 999 ML IV ×5 (11:53→16:53)
[2020-01-31 12:03] LABS: International Normalized Ratio 1.1; Prothrombin Time (Protime)PT. 13.4 SECONDS (11.7-14.9)
[2020-01-31 12:04] LABS: Lactic Acid 6.8 mmol/L (0.4-1.9); Partial Thromboplast Time 26.7 Seconds (24.1-36.2)
[2020-01-31 12:06] LABS: ALB/GLOB Ratio 0.8 RATIO (0.9-2.4); AST(SGOT) 17 U/L (15-37); Alanine Aminotransfer ALT/SGPT 25 U/L (13-56); Albumin, Serum 2.8 g/dL (3.2-5.0); Alkaline Phosphatase 56 U/L (45-117); Anion Gap 11 (5-15); BUN 27 mg/dL (7-18); BUN/Creat Ratio 13.8 RATIO (10-20); CPK Total, Creatine Kinase 301 U/L (26-192); Calcium,Total 8.9 mg/dL (8.5-10.1); Chloride 106 mmol/L (98-107); Creatinine, Serum 1.96 mg/dL (0.55-1.02); EST Glomerular Filtration Rate 28 mL/min (>60); Est Glom Filt Rate - Afr Amer 34 mL/min (>60); Estimated Creatinine Clearance 31.91 ml/min; Globulin 3.5 g/dL (2.2-4.2); Glucose 156 mg/dL (74-106); Potassium 4.1 mmol/L (3.5-5.1); Protein, Total 6.3 g/dL (6.4-8.2); Sodium Level 141 mmol/L (136-145)
--- NOTE | 2020-01-31 12:07 | ED.RN ---
lab called critical of lactic 6.8. dr gonzalez aware
[2020-01-31 12:11] LABS: Allen Test Positive; Base Excess -3 mmol/L (-2 to +2); Bicarbonate 22.4 mmol/L (22-26); Blood Gas Specimen Type ART; FI02 100; O2 Delivery Device NRB; PO2 68 mmHG (75-100); SITE L Radial; SO2 93 % (95-99); Total Carbon Dioxide 24 mmol/L; pCO2 38.4 mmHg (35-45); pH 7.37 (7.35-7.45)
[2020-01-31 12:20] LABS: Bacteria 0 SEEN /hpf (None Seen); Mucous, Urine 0 SEEN /hpf (<or=2+); Red Blood Cells-Urine 0 SEEN /hpf (0-5)
[2020-01-31 12:23] LABS: Color, Urine Yellow (Yellow); Glucose, Dipstick Normal (Normal); Ketone-Dipstick 5 mg/dl (Negative); Leukocyte Esterase-Dipstick 25 /ul (Negative); Nitrite-Dipstick Positive (Negative); Occult Blood-Urine 10 /ul (Negative); Protein-Dipstick Negative (Negative); Urine Bilirubin Dipstick Negative (Negative); Urine Urobilinogen Normal (Normal)
--- NOTE | 2020-01-31 12:50 | CT_ITS ---
STUDY: CT ABDOMEN AND PELVIS WITHOUT CONTRAST REASON FOR EXAM: Female, 54 years old. PATIENT FOUND LAYING IN BED WITH VOMIT AND BM. PT IS VERY AGITATE RADIATION DOSAGE (If Supplied By Facility): CTDIvol = ( 24.18 ) mGy, DLP = ( 1377.32 ) mGycm TECHNIQUE: Transaxial images were obtained from the dome of the diaphragm to the symphysis pubis without oral contrast, and without intravenous contrast. Sagittal and coronal images were reconstructed. Individualized dose optimization techniques were used for this CT. COMPARISON: Comparison is made with prior study dated 08/20/2017. FINDINGS: There is evidence of a dense airspace disease in the right middle lobe as well as in the right lower lobe. With the patient''s history of vomiting, this may represent aspiration. The visualized portions of the heart are within normal limits. Normal liver. There are surgical clips in the gallbladder fossa consistent with a prior cholecystectomy. Normal spleen. Normal pancreas. Normal bilateral adrenal glands. Normal right kidney. Normal left kidney. Evidence of prior gastric bypass surgery. Normal small intestine. Normal colon. There is non-visualization of the appendix. There is scattered atherosclerotic calcification of the abdominal aorta, without a demonstrated aneurysm. Normal inferior vena cava. Normal retroperitoneum. A ORTIZ catheter is seen within the empty bladder. Normal abdominal wall. 50% loss of height of the T12 vertebrae. Stable focal sclerosis along the posterior aspect of the left iliac bone suggestive of a bone island. CT/Abdomen/Pelvis without Cont IMPRESSION: Dense airspace disease in the right middle lobe and right lower lobe. No acute abnormality is seen. Electronically Signed: Zander Bethea, at 13:55 EST , Service support ,
[2020-01-31] MEDS: LORazepam 2 MG/ML Syringe 0.5 MG IV (12:55)
--- NOTE | 2020-01-31 13:04 | CT_ITS ---
STUDY: CT CHEST WITHOUT CONTRAST REASON FOR EXAM: Female, 54 years old. PATIENT FOUND LAYING IN BED WITH VOMIT AND BM. PT IS VERY AGITATED RADIATION DOSAGE (If Supplied By Facility): CTDIvol = ( 20.15 ) mGy, DLP = ( 775.38 ) mGycm TECHNIQUE: Transaxial imaging was performed without the administration of intravenous contrast material. Multiplanar coronal and sagittal images were reformatted. Individualized dose optimization techniques were used for this CT. COMPARISON: Comparison is made with prior study dated 11/18/2018. FINDINGS: Diffuse airspace disease involving the right upper lobe, right middle lobe and right lower lobes. With the patient''s history of vomiting, this may represent aspiration pneumonia. Mild degree of increased markings are also seen in the posterior medial segment of the left lower lobe. There is no demonstrated pleural abnormality. Normal heart and pericardium. Normal mediastinum. Normal hilar regions. Normal unenhanced pulmonary arteries. Normal aorta arch and descending thoracic aorta. There are multi-level degenerative changes of the thoracic spine. Stable compression fracture of the T12 vertebrae. There is no demonstrated abnormality of the visualized upper abdomen. CT/Chest without Contrast IMPRESSION: Extensive airspace disease in the right hemithorax as described. With the patient''s history of vomiting, this may represent aspiration pneumonia. Electronically Signed: Zander Bethea, at 13:56 EST , Service support ,
[2020-01-31 13:22] LABS: Squamous Epithelial Cells - UA 25-50 SEEN /hpf (5-10); Urine Clarity Sl Cloudy (Clear); White Blood Cells 5-10 SEEN /hpf (0-5)
--- NOTE | 2020-01-31 13:24 | ED.RN ---
0.01 mg iv epi given by dr gonzalez
--- NOTE | 2020-01-31 13:37 | NURSING ---
HOSPITALIST PAGED DR MADISON PAGED
--- NOTE | 2020-01-31 13:59 | NURSING ---
ICU YANCY SEPTIC SHOCK, PNEUMONIA
[2020-01-31 14:11] LABS: Lipase 65 U/L (73-393)
[2020-01-31 14:14] LABS: Probe Check PASS; Specimen Processing Control PASS
--- NOTE | 2020-01-31 14:18 | PCM.HP.STD ---
Problem List (1) Septic shock Status: Acute (2) Lactic acidosis Status: Acute (3) Acute respiratory failure with hypoxia Status: Acute (4) JANESSA (acute kidney injury) Status: Acute (5) Aspiration pneumonia Status: Acute (6) Bronchiectasis Status: Chronic (7) MRSA (methicillin resistant staph aureus) culture positive Status: Inactive (8) Community acquired pneumonia Status: Inactive Qualifiers: Laterality: right Lung location: upper lobe of lung (9) SIRS (systemic inflammatory response syndrome) Status: Inactive (10) Severe sepsis Status: Inactive (11) Intractable nausea and vomiting Status: Acute (12) UTI (urinary tract infection) Status: Inactive Qualifiers: Urinary tract infection type: acute cystitis (13) Acute hypoxemic respiratory failure Status: Inactive (14) Lower abdominal pain Status: Inactive (15) Diarrhea Status: Inactive Qualifiers: (16) Nausea and vomiting Status: Inactive Qualifiers: Vomiting type: unspecified (17) Pneumonia, bacterial Status: Inactive (18) UTI (urinary tract infection) Status: Inactive Qualifiers: Urinary tract infection type: acute cystitis Hematuria presence: without hematuria Qualified Code(s): N30.00 - Acute cystitis without hematuria (19) Diarrhea Status: Inactive (20) Abdominal pain Status: Inactive Qualifiers: Abdominal location: generalized Qualified Code(s): R10.84 - Generalized abdominal pain (21) Chronic obstructive lung disease Status: Chronic Qualifiers: COPD type: emphysema Emphysema type: centrilobular Qualified Code(s): J43.2 - Centrilobular emphysema (22) Cigarette smoker Status: Chronic (23) Rheumatoid arthritis Status: Chronic (24) Leukocytosis Status: Acute Qualifiers: Leukocytosis type: other Qualified Code(s): D72.828 - Other elevated white blood cell count Comment: likely due to recent high dose steroids (25) Chronic back pain Status: Chronic Qualifiers: Back pain location: back pain in unspecified location Back pain laterality: unspecified Qualified Code(s): M54.9 - Dorsalgia, unspecified; G89.29 - Other chronic pain (26) Obesity, morbid, BMI 50 or higher Status: Chronic (27) Diabetes mellitus, type II Status: Chronic Qualifiers: Diabetes mellitus termite exterminator helper insulin use: without correction use Diabetes mellitus complication status: with neurologic complications Diabetes mellitus complication detail: with polyneuropathy Qualified Code(s): E11.42 - Type 2 diabetes mellitus with diabetic polyneuropathy (28) Psoriatic arthritis Status: Chronic (29) HLD (hyperlipidemia) Status: Chronic (30) Hypothyroidism Status: Chronic (31) Anxiety and depression Status: Chronic (32) GERD (gastroesophageal reflux disease) Status: Chronic (33) HTN (hypertension) Status: Chronic Qualifiers: Hypertension type: essential hypertension Qualified Code(s): I10 - Essential (primary) hypertension (34) UTI (urinary tract infection) Status: Inactive Qualifiers: Urinary tract infection type: site unspecified Hematuria presence: without hematuria Qualified Code(s): N39.0 - Urinary tract infection, site not specified History of Present Illness Date of Admission: 01/31/20 Ms Paz is a 54 year old F who is well known to this institution and who has multiple medical issues as noted below presented to the ED on 01/31/2020 after being found at her assisted living apt covered in stool and vomit. She told the ED physician that she had been having some diffuse abdominal pain for a couple of days. On presentation her O2 sat was 83% on RA and she had to be placed on NIV at this time to get her SpO2 >90%. She is now satting 96% on 100% FiO2 via NIV. She has had no emesis since arrival and CT of her abdomen and pelvis was unremarkable. She is unable to give much history at this time. She is not O2 dependent at baseline. She is having BM and passing flatus. EKG shows sinus tach, She has been hypotensive and started on IVF boluses and now Levophed. She is not febrile. Her lactic acid is 6.8. LFT are WNL. Lipase is pending and CK is mildly elevated at 301. She has JANESSA with a sCr of 1.96. ABG shows hypoxia but no hypercapnia. She was started on Vanc and Zosyn after cultures were obtained. CT of her chest shows a marked R sided infiltrate. She is on chronic steroids and 100 mg of Cortef was given. Past Medical History Past Medical History (Chronic Problems): Chronic Problems (Last Reviewed 11/08/18 @ 14:53 by Claire Lewis SMALL PARTS ASSEMBLER, SMALL PARTS ASSEMBLER-C) Bronchiectasis (Chronic) Chronic obstructive lung disease (Chronic) Cigarette smoker (Chronic) Rheumatoid arthritis (Chronic) Chronic back pain (Chronic) Obesity, morbid, BMI 50 or higher (Chronic) Drug-seeking behavior (Chronic) Diabetes mellitus, type II (Chronic) Psoriatic arthritis (Chronic) HLD (hyperlipidemia) (Chronic) Hypothyroidism (Chronic) Anxiety and depression (Chronic) GERD (gastroesophageal reflux disease) (Chronic) HTN (hypertension) (Chronic) Medical History: Medical History (Last Reviewed 11/08/18 @ 14:53 by Claire Lewis SMALL PARTS ASSEMBLER, SMALL PARTS ASSEMBLER-C) MRSA (methicillin resistant staph aureus) culture positive (Acute) Z22.322 Community acquired pneumonia (Acute) J18.9 SIRS (systemic inflammatory response syndrome) (Acute) R65.10 Severe sepsis (Acute) A41.9, R65.20 Intractable nausea and vomiting (Acute) R11.2 UTI (urinary tract infection) (Acute) N39.0 Severe sepsis (Acute) A41.9, R65.20 Severe sepsis (Acute) A41.9, R65.20 Overdose (Acute) T50.901A Unresponsive episode (Acute) Acute hypoxemic respiratory failure (Acute) J96.01 Lower abdominal pain (Acute) R10.30 Diarrhea (Acute) R19.7 Nausea and vomiting (Acute) R11.2 Pneumonia, bacterial (Acute) J15.9 UTI (urinary tract infection) (Acute) N39.0 Diarrhea (Acute) R19.7 Abdominal pain (Acute) R10.9 Chronic obstructive lung disease (Chronic) J44.9 Cigarette smoker (Chronic) F17.210 Rheumatoid arthritis (Chronic) M06.9 Leukocytosis (Chronic) D72.829 likely due to recent high dose steroids Chronic back pain (Chronic) M54.9, G89.29 Obesity, morbid, BMI 50 or higher (Chronic) E66.01 Drug-seeking behavior (Chronic) Z76.5 Diabetes mellitus, type II (Chronic) E11.9 Psoriatic arthritis (Chronic) L40.50 HLD (hyperlipidemia) (Chronic) E78.5 Hypothyroidism (Chronic) E03.9 Anxiety and depression (Chronic) F41.9, F32.9 GERD (gastroesophageal reflux disease) (Chronic) K21.9 HTN (hypertension) (Chronic) I10 UTI (urinary tract infection) (Chronic) N39.0 Allergies fentanyl Allergy (Verified 09/12/18 15:18) Rash Iodinated Contrast Media [Iodinated Contrast Media - IV Dye] Allergy (Verified 09/12/18 15:18) Hives CAN BE PRE-MEDICATED levofloxacin [From Levaquin] Allergy (Verified 09/12/18 15:18) Rash nitrofurantoin [From Macrobid] Allergy (Verified 09/12/18 15:18) Rash Sulfa (Sulfonamide Antibiotics) Allergy (Verified 09/12/18 15:18) Itching Home Medications: Ambulatory Orders Medication Instructions Recorded Duloxetine HCl 60 mg PO DAILY 08/28/15 Levothyroxine [Synthroid] 150 mcg PO DAILY 08/28/15 Lisinopril [Zestril] 10 mg PO DAILY 06/28/16 Glimepiride [Amaryl] 4 mg PO DAILY 02/23/17 Hydroxychloroquine [Plaquenil] 300 mg PO DAILYCM 06/05/18 cycloBENZAPRine HCl [Flexeril] 10 mg PO BID 06/05/18 Acetaminophen 650 mg PO Q6H PRN PRN 01/31/20 Amitriptyline HCl [Elavil] 100 mg PO DAILY 01/31/20 Aspirin [Aspirin, Baby] 81 mg PO DAILY@0800 01/31/20 Cholecalciferol (Vitamin D3) 50 mcg PO DAILY 01/31/20 [Vitamin D3] Cranberry Fruit Extract [Cranberry] 400 mg PO DAILY 01/31/20 Cyclobenzaprine HCl 5 mg PO DINNER 01/31/20 Fluticasone/Vilanterol [Breo 1 puff INHALATION DAILY 01/31/20 Ellipta 200-25 Mcg INH] Gabapentin 1,600 mg PO DAILY 01/31/20 Gabapentin 800 mg PO BID 01/31/20 Gabapentin [Neurontin] 400 mg PO DINNER 01/31/20 Hydroxyzine Pamoate [Vistaril] 50 mg PO 4X/DAY 01/31/20 Melatonin 10 mg PO QHS 01/31/20 Omeprazole [Prilosec] 20 mg PO DAILY 01/31/20 Oxybutynin [Ditropan] 10 mg PO DAILY 01/31/20 Prednisone 10 mg PO DAILY 01/31/20 Quetiapine Fumarate 300 mg PO QHS 01/31/20 Simvastatin 40 mg PO DAILY 01/31/20 Sitagliptin Phosphate [Januvia] 100 mg PO DAILY 01/31/20 Tofacitinib Citrate [Xeljanz] 5 mg PO BID 01/31/20 Surgical History: cholecystectomy, gastric bypass, - - Multiple back surgeries, ?6 Psychiatric History: Anxiety, Depression 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 Offspring History Items: - - Obesity Maternal History Items: Stroke Review of Systems Unable to obtain accurate/complete ROS d/t: Unable to obtain a good ROS as pt is on NIV at this time VTE Information - Inpt Only VTE Present on Admission: No VTE Mechan Device Prophylaxis: SCD's VTE Pharm Prophylaxis ordered?: Yes Patient Problems: Active and Suspected Problems (Last Reviewed 11/08/18 @ 14:53 by Claire Lewis SMALL PARTS ASSEMBLER, SMALL PARTS ASSEMBLER-C) Septic shock (Acute) Lactic acidosis (Acute) Acute respiratory failure with hypoxia (Acute) JANESSA (acute kidney injury) (Acute) Aspiration pneumonia (Acute) Intractable nausea and vomiting (Acute) Leukocytosis (Acute) likely due to recent high dose steroids - Physical Exam Vitals/I&O's: Vital Signs Temp Pulse Resp BP Pulse Ox 98.2 F 104 H 39 H 64/53 L 100 01/31/20 14:06 01/31/20 14:06 01/31/20 14:06 01/31/20 14:06 01/31/20 14:06 Oxygen Flow Rate (L/min) 15 Oxygen Delivery Method Bi-pap Weight: 173.3 kg Body Mass Index (BMI) 59.8 Finger Stick Blood Glucose 294 Intake and Output for Last 24 Hours 01/29/20 01/30/20 01/31/20 23:59 23:59 23:59 Intake Total 100 / 100 Balance 100 / 100 General: Alert, Cooperative, Well developed, Well nourished, Confused, - - Super MO WF lying in bed on NIV with nsg at bedside, pt is hypontensive but follows commands HEENT: PERRLA, EOMI, Normocephalic, - - L eye with ecchymosis around eye Oral: No Gingival or Mucosal Lesions/ Ulcerations, Dry Mucosa, - - Mallamapati is 4 Neck: Supple, No JVD, Negative Carotid Bruits, Negative Hepatojugular Reflux, No Nodes, No Nuchal Rigidity, Trachea Midline Lungs: No wheeze, No rales, Rhonchi - R, - - very distant 2/2 body habitus Cardiovascular: Regular Rhythm, Normal S1, Normal S2, No murmurs, No Ectopic Activity, No rub noted, No Gallop, Tachycardic - mild sinus tach, - - distant 2/2 body habitus Abdomen: Bowel Sounds Present, Soft, Non Tender, Non-Distended, Obese, No hernias noted, - - old well healed midline incision from past gastric bypass Extremities: No clubbing, No cyanosis, No edema, Capillary Refill Less than 3 Seconds, Peripheral Pulses Normal Skin: - - B feet with tinea and onychomyocosis and red area at distal L ankle Musculoskeletal: No Tenderness to Palpation of Joints or Extremities, No Muscle Wasting, Arthritic Changes Lymphatic: No Cervical, Supraclavicular, or Inguinal Adenopathy Neurological: Cranial nerves II-XII grossly intact, Deep Tendon Reflexes 2+/4 and Symmetrical, Neuro grossly intact, Muscle tone normal, Coordination normal, - - SCOTT symmetrically Psych/Mental Status: - - confused and somewhat agitated Laboratory Results 01/31/20 11:06: COVID-19 (AMANDA) Negative 01/31/20 11:10: WBC 15.9 H, RBC 4.17 L, Hgb 11.5 L, Hct 37.1, MCV 89.0, MCH 27.6, MCHC 31.0 L, RDW Std Deviation 45.6 H, RDW Coeff of Ralph 14.1, Plt Count 328, MPV 9.6, Immature Gran % (Auto) 0.400, Neut % (Auto) 73.8 H, Lymph % (Auto) 15.5 L, [place] % (Auto) 9.0, Eos % (Auto) 0.9, Baso % (Auto) 0.4, Absolute Neuts (auto) 11.8 H, Absolute Lymphs (auto) 2.47, Nucleated RBC % 0 01/31/20 11:10: PT 13.4, INR 1.1, APTT 26.7 01/31/20 11:10: Sodium 141, Potassium 4.1, Chloride 106, Carbon Dioxide 24.0, Anion Gap 11, BUN 27 H, Creatinine 1.96 H, Estim Creat Clear Calc 31.91, Est GFR (MDRD) Af Amer 34 L, Est GFR (MDRD) Non-Af 28 L, BUN/Creatinine Ratio 13.8, Glucose 156 H, Calcium 8.9, Total Bilirubin 0.30, AST 17, ALT 25, Alkaline Phosphatase 56, Total Creatine Kinase 301 H, Troponin I < 0.015, Total Protein 6.3 L, Albumin 2.8 L, Globulin 3.5, Albumin/Globulin Ratio 0.8 L 01/31/20 11:10: Lactic Acid 6.8 H* 01/31/20 11:10: Lipase 65 L 01/31/20 12:04: Specimen Type ART, Sample Site L Radial, pH 7.37, Bicarbonate Actual 22.4, Total CO2 24, Base Excess -3 L, O2 Saturation 93 L, O2 % 100, ABG pCO2 38.4, ABG pO2 68 L, Bear Test Positive, O2 Delivery Device NRB 01/31/20 12:10: Urine Color Yellow, Urine Clarity Sl Cloudy, Urine pH 5.0, Ur Specific [place] 1.020, Urine Protein Negative, Urine Glucose (UA) Normal, Urine Ketones 5 H, Urine Occult Blood 10 H, Urine Nitrite Positive H, Urine Bilirubin Negative, Urine Urobilinogen Normal, Ur Leukocyte Esterase 25 H, Urine RBC 0 SEEN, Urine WBC 5-10 SEEN, Ur Squamous Epith Cells 25-50 SEEN, Urine Bacteria 0 SEEN, Urine Mucus 0 SEEN Current Medications Hydrocortisone Sodium Succinate (Hydrocortisone Sod Succinate 100 Mg/2 Ml Vial) 100 mg IV X1 ONE Stop: 01/31/20 14:18 Sodium Chloride () 1,000 mls @ 999 mls/hr IV .Q1H1M [facility]; Protocol Stop: 01/31/20 15:10 Last Admin: 01/31/20 13:19 Dose: 999 mls/hr Documented by: Vancomycin HCl 2,000 mg/ (Sodium Chloride) 540 mls @ 250 mls/hr IV X1 ONE Stop: 01/31/20 14:29 Last Admin: 01/31/20 13:41 Dose: 250 mls/hr Documented by: Norepinephrine Bitartrate 8 mg (/ Sodium Chloride) 250 mls @ 9.375 mls/hr CONT INF .[id number] [facility]; Protocol Assessment/Plan All Active Problems (Last Reviewed 11/08/18 @ 14:53 by Claire Lewis SMALL PARTS ASSEMBLER, SMALL PARTS ASSEMBLER-C) Septic shock (Acute) Lactic acidosis (Acute) Acute respiratory failure with hypoxia (Acute) JANESSA (acute kidney injury) (Acute) Aspiration pneumonia (Acute) Intractable nausea and vomiting (Acute) Severe sepsis (Acute) Severe sepsis (Acute) Overdose (Acute) Unresponsive episode (Acute) Leukocytosis (Acute) Diarrhea (Resolved) History of Clostridium difficile (Resolved) Acute exacerbation of chronic obstructive pulmonary disease (COPD) (Ruled-out) SIRS with Severe sepsis due to UTI (Ruled-out) Urinary tract infection (Ruled-out) Septic Shock 2/2 Aspiration PNA R -IVF per sepsis protocol -Levo for now but wean as able -pt is on steroids chronically for psoriasis and psoriatic arthritis -give solucortef 100 mg x 1 dose now and then 100 mg q 8 hrs -Vanc and Zosyn -blood, urine and sputum cx pending -UA with nitrite and leuk est + WBC -COVID-19 is in progress -check flu and viral panel -MRSA PCR -CXR in am -pt may need CVC -consult to CCM Acute Hypoxic Respiratory Failure 2/2 Aspiration PNA -abx as above -CT chest shows marked R sided infiltrate -NIV -CXR in am -nebs scheduled and PRN -pulm to follow Lactic Acidosis -cycle per protocol -IVF -pressors for now -wean as able JANESSA 2/2 ATN -baseline sCr is 0.8-1.0 -now 1.96 -suspect related to dehydration and decreased perfusion with hypotension -if not improved in the am would check urine lytes, creat, eos, and RP US -avoid nephrotoxins and aim for MAP of at least 65 -Almazan in place Hypotension -see above -hold antihypertensives DM-2 -will check A1c in am -last known here was 2017 and was 8.8 -hold Amaryl, Januvia -Mod dose SSI but may need more with stress dose steroids 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 -cortef 100 TID and wean as able Hypothyroidism -check TSH and Free T4 in am -continue Synthroid IV 75 mcg daily Abdominal Pain/N/V -stool in ED was formed -no emesis since admission -CT abdomen and pelvis was neg but no contrast -added on lipase -NPO for now -hold PO meds -IVF H/O HTN -holding antihypertensives HPL -hold statin for now GERD -IV PPI Psoriatic Arthritis and Psoriasis -hold prednisone 10 mg daily -hold Xejanz COPD/Tobacco Abuse -nebs -hold inhaler for now -Nicotine patch 21 mcg per day Neuropathy -hold gabapentin Depression/Anxiety -hold Cymbalta, Vistaril, and Seroquel -restart FABIANA Onychomycosis -consult podiatry Tinea -Lotrimin B LE DVT Prophylaxis -Heparin TID Code Status -Full CCT > 31 min Procedures: 28999 Critial Care 1st Hr
--- NOTE | 2020-01-31 14:44 | CPS ---
decreased to 50%
[2020-01-31 15:27] LABS: Reflex Lactate? Y
[2020-01-31 15:55] LABS: Lactic Acid 5.3 mmol/L (0.4-1.9)
--- NOTE | 2020-01-31 16:24 | PCM.RX.CS ---
Consult Pharmacy has been consulted to manage selected antiobiotic: Vancomycin Type of Consult: New start Suspected Infection: Pneumonia Prior Doses of Antibiotics Received/Current Regimen: Received loading dose of 2gm iv x 1. Labs: Sodium 141 mmol/L (136-145) 01/31/20 11:10 Potassium 4.1 mmol/L (3.5-5.1) 01/31/20 11:10 Chloride 106 mmol/L (98-107) 01/31/20 11:10 Carbon Dioxide 24.0 mmol/L (21.0-32.0) 01/31/20 11:10 Anion Gap 11 (5-15) 01/31/20 11:10 BUN 27 mg/dL (7-18) H 01/31/20 11:10 Creatinine 1.96 mg/dL (0.55-1.02) H 01/31/20 11:10 Est GFR (MDRD) Af Amer 34 mL/min (>60) L 01/31/20 11:10 Est GFR (MDRD) Non-Af 28 mL/min (>60) L 01/31/20 11:10 BUN/Creatinine Ratio 13.8 RATIO (-20) 01/31/20 11:10 Glucose 156 mg/dL (74-106) H 01/31/20 11:10 Weight used for dosin kg Estimated Creatinine Clearance: ~55ml/min Goal Trough: 15-20 mcg/mL Pharmacy Plan for Drug Dosing: Renal function calculated to be CrCl ~55ml/min for adjusted body weight of 106kg. Will begin 1250mg iv q12h starting 12hrs after 2gm loading dose per pharmacokinetic protocol. Trough level ordered for before 4th dose on 02.02.20. Pharmacy Service will continue to monitor and adjust dosing as required. Follow-Up Labs: Trough Vancomycin - 02.02.20 @0130 before 0200 dose
[2020-01-31] MEDS: Hydrocortisone Sod Succinate 100 MG/2 ML Vial IV ×2 (17:06→21:33)
[2020-01-31] MEDS: Heparin Injection (Vial) 5,000 UNIT/ML VIAL 5000 UNIT SC ×2 (17:06→21:32)
[2020-01-31 17:19] LABS: Amphetamine Urine VISTA NEGATIVE (<1000 ng/mL); Barbiturate Urine VISTA NEGATIVE (< 200 ng/mL); Benzodiazepine Urine VISTA NEGATIVE (< 200 ng/mL); Cocaine Urine VISTA NEGATIVE (< 300 ng/mL); Ecstacy Urine VISTA NEGATIVE (< 500 ng/mL); Methadone Urine VISTA NEGATIVE (< 300 ng/mL); PCP Urine VISTA NEGATIVE (< 25 ng/mL); THC Urine VISTA NEGATIVE (< 50 ng/mL); Vista UDS pH Range 5
[2020-01-31 17:21] LABS: Bedside Glucose 145 mg/dL (70-110)
[2020-01-31] MEDS: Lactated Ringers 1,000 ML 75 ML IV (18:38)
[2020-01-31] MEDS: Ipratropium/Albuterol Sulfate 3 ML AMPUL.NEB INHALATION (19:35)
[2020-01-31] MEDS: Menthol/Lanolin/Calamine/Znox 113 GM Tube 1 APPLIC TOPICAL (23:21)
[2020-01-31] MEDS: Insulin Lispro 100 UNIT/ML INSULN.PEN SC (23:58)
[2020-02-01] VITALS (30 sets, daily range): BP systolic 99–141; BP diastolic 65–89; PULSE 20–116; RESP 18–30; TEMP 37.2–38.2; O2SAT 94–100
[2020-02-01 01:06] LABS: Bedside Glucose 185 mg/dL (70-110)
[2020-02-01 05:03] LABS: Absolute Lymphocyte Count 1.06 X10^3/uL (0.83-4.51); Absolute Neutrophil Count 23.5 X10^3/uL (2.0-7.7); Basophil# 0.07 X10^3/uL; Basophil% 0.3 % (0-1); Eosinophil# 0.03 X10^3/uL; Eosinophils% 0.1 % (0-5); Hematocrit 34.9 % (37-47); Hemoglobin 10.8 g/dL (12.0-15.0); Lymphocyte # 1.06 X10^3/ul (4.0); Mean Corp Hgb Conc 30.9 g/dL (32-36); Mean Corpuscular Hgb 27.6 pg (27.0-32.0); Mean Platelet Vol. 9.4 fl (6.2-12.0); Monocyte# 1.94 X10^3/uL; Monocyte% 7.2 % (0-10); NRBC Flagged by Analyzer 0 % (0-5); Neutrophil # 23.46 X10^3/uL (2.7-7.7); Neutrophil % 87.5 % (47-70); POSITIVE DIFFERENTIAL YES; POSITIVE MORPHOLOGY YES; Platelet Count 311 K/mm3 (150-450); RBC Distribution Width CV 14.2 % (11.6-14.6); RBC Distribution Width SD 46.1 fl (35.1-43.9); Red Blood Count 3.92 M/mm3 (4.2-5.4); White Blood Count 26.8 K/mm3 (4.4-11.0)
[2020-02-01 05:26] LABS: ALB/GLOB Ratio 0.6 RATIO (0.9-2.4); AST(SGOT) 50 U/L (15-37); Alanine Aminotransfer ALT/SGPT 30 U/L (13-56); Albumin, Serum 2.4 g/dL (3.2-5.0); Alkaline Phosphatase 61 U/L (45-117); Anion Gap 7 (5-15); BUN 27 mg/dL (7-18); BUN/Creat Ratio 19.1 RATIO (10-20); Calcium,Total 7.7 mg/dL (8.5-10.1); Chloride 110 mmol/L (98-107); Creatinine, Serum 1.41 mg/dL (0.55-1.02); EST Glomerular Filtration Rate 41 mL/min (>60); Est Glom Filt Rate - Afr Amer 50 mL/min (>60); Glucose 173 mg/dL (74-106); Magnesium 1.6 mg/dL (1.6-2.6); Phosphorus 4.4 mg/dL (2.5-4.9); Potassium 4.1 mmol/L (3.5-5.1); Protein, Total 6.4 g/dL (6.4-8.2); Sodium Level 144 mmol/L (136-145); T4 Free Direct 1.29 ng/dL (0.76-1.46); Thyroid Stim Hormone (TSH) 0.79 uIU/mL (0.358-3.74)
[2020-02-01 05:45] LABS: Differential Indicated SCAN CRITERIA MET
[2020-02-01 05:46] LABS: Differential Comment SCANNED
[2020-02-01 05:46] LABS: Bedside Glucose 160 mg/dL (70-110)
[2020-02-01] MEDS: Heparin Injection (Vial) 5,000 UNIT/ML VIAL 5000 UNIT SC ×3 (05:47→21:21)
[2020-02-01] MEDS: Insulin Lispro 100 UNIT/ML INSULN.PEN SC ×3 (05:47→19:34)
[2020-02-01] MEDS: Hydrocortisone Sod Succinate 100 MG/2 ML Vial IV ×3 (05:47→21:21)
--- NOTE | 2020-02-01 05:55 | RAD_ITS ---
STUDY: X-RAY CHEST REASON FOR EXAM: Female, 54 years old. PNEUMONIA -- BEST IMAGES POSSIBLE, PATIENT UNCOOPERATIVE TECHNIQUE: Single AP portable view of the chest. COMPARISON: October 24, 2018 FINDINGS: Right greater than left patchy infiltrates within the lungs. There is no demonstrated pleural abnormality. There is mild cardiac enlargement. Normal mediastinum and tony. Normal visualized pulmonary arteries. Normal visualized aortic arch and descending thoracic aorta. There are diffuse degenerative changes of the visualized thoracic spine. Normal visualized ribs, clavicles, and shoulders. There is no demonstrated abnormality of the visualized soft tissue structures of the upper abdomen. RAD/Chest 1 View (Portable) IMPRESSION: Findings suspicious for right sided predominant multifocal pneumonia. Electronically Signed: Perla Pack MD at 5:34 EST Tel , Service support ,
--- NOTE | 2020-02-01 06:04 | PCM.CON.CC ---
Reason for Consult Date of Consultation: 02/01/20 Reason for Consultation: Encephalopathy, hypoxemia History of Present Illness: The patient is a 54-year-old female, with a history as outlined below, who presented to the emergency department on January 30 with altered mentation and hypoxemia. The patient has been seen on 2 occasions in the pulmonary medicine clinic following hospitalizations for suspected COPD exacerbations. Although testing has been ordered in the past, the patient has never completed pulmonary function studies. The patient has a longstanding history of tobacco dependency and continues to smoke cigarettes daily. She has a number of significant comorbidities and is on a number of sedating medications at her baseline at her nursing facility. On presentation to the emergency department, the patient was noted to be afebrile and hemodynamically stable. She was initially documented to be saturating 84% on room air. Laboratory evaluation revealed an elevated white blood cell count to 16,000. Coagulation profile was within normal limits. Chemistry profile was notable for a creatinine of 1.96. Lactate was elevated to 6.8. Troponin was negative. TSH and free T4 levels were within normal limits. Urine analysis was positive for nitrites and leukocyte esterase. Toxicology screen was negative. Coronavirus PCR was negative. Head CT was unremarkable. CT abdomen pelvis along with chest CT was completed. That imaging study demonstrated the presence of multifocal airspace disease within the right hemithorax. The patient received supplemental IV fluid hydration. Although the patient was hypotensive in the emergency department, she responded to fluid resuscitation. The patient was ultimately placed on BiPAP and admitted to the medical intensive care unit for further management. Past Medical History Past Medical History (Chronic Problems): Chronic Problems (Last Reviewed 11/08/18 @ 14:53 by Claire Lewis GREEN PIPEFITTER, GREEN PIPEFITTER-C) Bronchiectasis (Chronic) Chronic obstructive lung disease (Chronic) Cigarette smoker (Chronic) Rheumatoid arthritis (Chronic) Chronic back pain (Chronic) Obesity, morbid, BMI 50 or higher (Chronic) Drug-seeking behavior (Chronic) Diabetes mellitus, type II (Chronic) Psoriatic arthritis (Chronic) HLD (hyperlipidemia) (Chronic) Hypothyroidism (Chronic) Anxiety and depression (Chronic) GERD (gastroesophageal reflux disease) (Chronic) HTN (hypertension) (Chronic) Medical History: Medical History (Last Reviewed 11/08/18 @ 14:53 by Claire Lewis NP, GREEN PIPEFITTER-C) Intractable nausea and vomiting (Acute) R11.2 Severe sepsis (Acute) A41.9, R65.20 Severe sepsis (Acute) A41.9, R65.20 Overdose (Acute) T50.901A Unresponsive episode (Acute) Chronic obstructive lung disease (Chronic) J44.9 Cigarette smoker (Chronic) F17.210 Rheumatoid arthritis (Chronic) M06.9 Leukocytosis (Acute) D72.829 likely due to recent high dose steroids Chronic back pain (Chronic) M54.9, G89.29 Obesity, morbid, BMI 50 or higher (Chronic) E66.01 Drug-seeking behavior (Chronic) Z76.5 Diabetes mellitus, type II (Chronic) E11.9 Psoriatic arthritis (Chronic) L40.50 HLD (hyperlipidemia) (Chronic) E78.5 Hypothyroidism (Chronic) E03.9 Anxiety and depression (Chronic) F41.9, F32.9 GERD (gastroesophageal reflux disease) (Chronic) K21.9 HTN (hypertension) (Chronic) I10 Abdominal pain (Inactive) R10.9 Acute hypoxemic respiratory failure (Inactive) J96.01 Community acquired pneumonia (Inactive) J18.9 Diarrhea (Inactive) R19.7 Diarrhea (Inactive) R19.7 Lower abdominal pain (Inactive) R10.30 MRSA (methicillin resistant staph aureus) culture positive (Inactive) Z22.322 Nausea and vomiting (Inactive) R11.2 Pneumonia, bacterial (Inactive) J15.9 SIRS (systemic inflammatory response syndrome) (Inactive) R65.10 Severe sepsis (Inactive) A41.9, R65.20 UTI (urinary tract infection) (Inactive) N39.0 UTI (urinary tract infection) (Inactive) N39.0 UTI (urinary tract infection) (Inactive) N39.0 Allergies fentanyl Allergy (Verified 09/12/18 15:18) Rash Iodinated Contrast Media [Iodinated Contrast Media - IV Dye] Allergy (Verified 09/12/18 15:18) Hives CAN BE PRE-MEDICATED levofloxacin [From Levaquin] Allergy (Verified 09/12/18 15:18) Rash nitrofurantoin [From Macrobid] Allergy (Verified 09/12/18 15:18) Rash Sulfa (Sulfonamide Antibiotics) Allergy (Verified 09/12/18 15:18) Itching Home Medications: Ambulatory Orders Medication Instructions Recorded Duloxetine HCl 60 mg PO DAILY 08/28/15 Levothyroxine [Synthroid] 150 mcg PO DAILY 08/28/15 Lisinopril [Zestril] 10 mg PO DAILY 06/28/16 Glimepiride [Amaryl] 4 mg PO DAILY 02/23/17 Hydroxychloroquine [Plaquenil] 300 mg PO DAILYCM 06/05/18 cycloBENZAPRine HCl [Flexeril] 10 mg PO BID 06/05/18 Acetaminophen 650 mg PO Q6H PRN PRN 01/31/20 Amitriptyline HCl [Elavil] 100 mg PO DAILY 01/31/20 Aspirin [Aspirin, Baby] 81 mg PO DAILY@0800 01/31/20 Cholecalciferol (Vitamin D3) 50 mcg PO DAILY 01/31/20 [Vitamin D3] Cranberry Fruit Extract [Cranberry] 400 mg PO DAILY 01/31/20 Cyclobenzaprine HCl 5 mg PO DINNER 01/31/20 Fluticasone/Vilanterol [Breo 1 puff INHALATION DAILY 01/31/20 Ellipta 200-25 Mcg INH] Gabapentin 1,200 mg PO DINNER 01/31/20 Gabapentin 1,600 mg PO DAILY 01/31/20 Gabapentin [Neurontin] 800 mg PO QHS 01/31/20 Hydroxyzine Pamoate [Vistaril] 50 mg PO 4X/DAY 01/31/20 Melatonin 10 mg PO QHS 01/31/20 Omeprazole [Prilosec] 20 mg PO DAILY 01/31/20 Oxybutynin [Ditropan] 10 mg PO DAILY 01/31/20 Prednisone 10 mg PO DAILY 01/31/20 Quetiapine Fumarate 300 mg PO QHS 01/31/20 Simvastatin 40 mg PO DAILY 01/31/20 Sitagliptin Phosphate [Januvia] 100 mg PO DAILY 01/31/20 Tofacitinib Citrate [Xeljanz] 5 mg PO BID 01/31/20 Surgical History: cholecystectomy, gastric bypass, - - Multiple back surgeries, ?6 Psychiatric History: Anxiety, Depression 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 Offspring History Items: - - Obesity Maternal History Items: Stroke Review of Systems Unable to obtain accurate/complete ROS d/t: Due to level of encephalopathy Patient Problems: Active and Suspected Problems (Last Reviewed 11/08/18 @ 14:53 by Claire Lewis GREEN PIPEFITTER, GREEN PIPEFITTER-C) Septic shock (Acute) Lactic acidosis (Acute) Acute respiratory failure with hypoxia (Acute) JANESSA (acute kidney injury) (Acute) Aspiration pneumonia (Acute) Intractable nausea and vomiting (Acute) Leukocytosis (Acute) likely due to recent high dose steroids Objective: The patient's most recent lab work, culture data and imaging studies have all been personally reviewed. Coronavirus PCR was negative. Rapid influenza screen was negative. Blood and urine cultures are pending. - Physical Exam Vitals/I&O's: Vital Signs Temp Pulse Resp BP Pulse Ox 100.0 F H 109 H 24 H 113/71 97 02/01/20 04:00 02/01/20 04:00 02/01/20 04:00 02/01/20 04:00 02/01/20 04:00 Oxygen Flow Rate (L/min) 6 Oxygen Delivery Method Nasal Cannula Weight: 385 lb 12.943 oz Body Mass Index (BMI) 61.0 Finger Stick Blood Glucose 294 Intake and Output for Last 24 Hours 01/30/20 01/31/20 02/01/20 23:59 23:59 23:59 Intake Total 5382.7 / 5382.7 325 / 325 Output Total 840 / 840 500 / 500 Balance 4542.7 / 4542.7 -175 / -175 General: - - The patient is alert but appears confused and disoriented, audibly moaning in bed. Super morbidly obese. HEENT: Atraumatic, Normocephalic Oral: No Gingival or Mucosal Lesions/ Ulcerations Neck: Supple, No Nodes, Trachea Midline, - - Large neck circumference with redundant soft tissue. Lungs: Diminished, Rhonchi Cardiovascular: Regular rate, Regular Rhythm Abdomen: Bowel Sounds Present, Soft, Non Tender, Obese Extremities: No clubbing, No cyanosis Skin: No breakdown Musculoskeletal: No Muscle Wasting Lymphatic: No Cervical, Supraclavicular, or Inguinal Adenopathy Neurological: - - No focal neurological deficits. Psych/Mental Status: Agitated, Restless Labs (Last 48 Hours) 01/31/20 01/31/20 01/31/20 11:06 11:10 11:10 WBC 15.9 H RBC 4.17 L Hgb 11.5 L Hct 37.1 MCV 89.0 MCH 27.6 MCHC 31.0 L RDW Std Deviation 45.6 H RDW Coeff of Ralph 14.1 Plt Count 328 MPV 9.6 Immature Gran % (Auto) 0.400 Neut % (Auto) 73.8 H Lymph % (Auto) 15.5 L Garden % (Auto) 9.0 Eos % (Auto) 0.9 Baso % (Auto) 0.4 Absolute Neuts (auto) 11.8 H Absolute Lymphs (auto) 2.47 Nucleated RBC % 0 Differential Comment Diff Path Review PT 13.4 INR 1.1 APTT 26.7 Specimen Type Sample Site pH Bicarbonate Actual Total CO2 Base Excess O2 Saturation O2 % ABG pCO2 ABG pO2 Bear Test O2 Delivery Device Sodium Potassium Chloride Carbon Dioxide Anion Gap BUN Creatinine Estim Creat Clear Calc Est GFR (MDRD) Af Amer Est GFR (MDRD) Non-Af BUN/Creatinine Ratio Glucose Hemoglobin A1c Lactic Acid Calcium Phosphorus Magnesium Total Bilirubin AST ALT Alkaline Phosphatase Total Creatine Kinase Troponin I Total Protein Albumin Globulin Albumin/Globulin Ratio Lipase TSH Free T4 Urine Color Urine Clarity Urine pH Ur Specific Sod Urine Protein Urine Glucose (UA) Urine Ketones Urine Occult Blood Urine Nitrite Urine Bilirubin Urine Urobilinogen Ur Leukocyte Esterase Urine RBC Urine WBC Ur Squamous Epith Cells Urine Bacteria Urine Mucus Urine Opiates Screen Urine Methadone Screen Ur Barbiturates Screen Ur Phencyclidine Scrn Ur Amphetamines Screen U Methamphetamin-MDMA U Benzodiazepines Scrn Urine Cocaine Screen U Cannabinoids Screen Ur Drug Screen Comment COVID-19 (AMANDA) Negative POC Glucose 01/31/20 01/31/20 01/31/20 11:10 11:10 11:10 WBC RBC Hgb Hct MCV MCH MCHC RDW Std Deviation RDW Coeff of Ralph Plt Count MPV Immature Gran % (Auto) Neut % (Auto) Lymph % (Auto) Garden % (Auto) Eos % (Auto) Baso % (Auto) Absolute Neuts (auto) Absolute Lymphs (auto) Nucleated RBC % Differential Comment Diff Path Review PT INR APTT Specimen Type Sample Site pH Bicarbonate Actual Total CO2 Base Excess O2 Saturation O2 % ABG pCO2 ABG pO2 Bear Test O2 Delivery Device Sodium 141 Potassium 4.1 Chloride 106 Carbon Dioxide 24.0 Anion Gap 11 BUN 27 H Creatinine 1.96 H Estim Creat Clear Calc 31.91 Est GFR (MDRD) Af Amer 34 L Est GFR (MDRD) Non-Af 28 L BUN/Creatinine Ratio 13.8 Glucose 156 H Hemoglobin A1c Lactic Acid 6.8 H* Calcium 8.9 Phosphorus Magnesium Total Bilirubin 0.30 AST 17 ALT 25 Alkaline Phosphatase 56 Total Creatine Kinase 301 H Troponin I < 0.015 Total Protein 6.3 L Albumin 2.8 L Globulin 3.5 Albumin/Globulin Ratio 0.8 L Lipase 65 L TSH Free T4 Urine Color Urine Clarity Urine pH Ur Specific Sod Urine Protein Urine Glucose (UA) Urine Ketones Urine Occult Blood Urine Nitrite Urine Bilirubin Urine Urobilinogen Ur Leukocyte Esterase Urine RBC Urine WBC Ur Squamous Epith Cells Urine Bacteria Urine Mucus Urine Opiates Screen Urine Methadone Screen Ur Barbiturates Screen Ur Phencyclidine Scrn Ur Amphetamines Screen U Methamphetamin-MDMA U Benzodiazepines Scrn Urine Cocaine Screen U Cannabinoids Screen Ur Drug Screen Comment COVID-19 (AMANDA) POC Glucose 01/31/20 01/31/20 01/31/20 12:04 12:10 12:10 WBC RBC Hgb Hct MCV MCH MCHC RDW Std Deviation RDW Coeff of Ralph Plt Count MPV Immature Gran % (Auto) Neut % (Auto) Lymph % (Auto) Garden % (Auto) Eos % (Auto) Baso % (Auto) Absolute Neuts (auto) Absolute Lymphs (auto) Nucleated RBC % Differential Comment Diff Path Review PT INR APTT Specimen Type ART Sample Site L Radial pH 7.37 Bicarbonate Actual 22.4 Total CO2 24 Base Excess -3 L O2 Saturation 93 L O2 % 100 ABG pCO2 38.4 ABG pO2 68 L Bear Test Positive O2 Delivery Device NRB Sodium Potassium Chloride Carbon Dioxide Anion Gap BUN Creatinine Estim Creat Clear Calc Est GFR (MDRD) Af Amer Est GFR (MDRD) Non-Af BUN/Creatinine Ratio Glucose Hemoglobin A1c Lactic Acid Calcium Phosphorus Magnesium Total Bilirubin AST ALT Alkaline Phosphatase Total Creatine Kinase Troponin I Total Protein Albumin Globulin Albumin/Globulin Ratio Lipase TSH Free T4 Urine Color Yellow Urine Clarity Sl Cloudy Urine pH 5.0 Ur Specific Sod 1.020 Urine Protein Negative Urine Glucose (UA) Normal Urine Ketones 5 H Urine Occult Blood 10 H Urine Nitrite Positive H Urine Bilirubin Negative Urine Urobilinogen Normal Ur Leukocyte Esterase 25 H Urine RBC 0 SEEN Urine WBC 5-10 SEEN Ur Squamous Epith Cells 25-50 SEEN Urine Bacteria 0 SEEN Urine Mucus 0 SEEN Urine Opiates Screen NEGATIVE Urine Methadone Screen NEGATIVE Ur Barbiturates Screen NEGATIVE Ur Phencyclidine Scrn NEGATIVE Ur Amphetamines Screen NEGATIVE U Methamphetamin-MDMA NEGATIVE U Benzodiazepines Scrn NEGATIVE Urine Cocaine Screen NEGATIVE U Cannabinoids Screen NEGATIVE Ur Drug Screen Comment COVID-19 (AMANDA) POC Glucose 01/31/20 01/31/20 01/31/20 15:00 17:15 23:52 WBC RBC Hgb Hct MCV MCH MCHC RDW Std Deviation RDW Coeff of Ralph Plt Count MPV Immature Gran % (Auto) Neut % (Auto) Lymph % (Auto) Garden % (Auto) Eos % (Auto) Baso % (Auto) Absolute Neuts (auto) Absolute Lymphs (auto) Nucleated RBC % Differential Comment Diff Path Review PT INR APTT Specimen Type Sample Site pH Bicarbonate Actual Total CO2 Base Excess O2 Saturation O2 % ABG pCO2 ABG pO2 Bear Test O2 Delivery Device Sodium Potassium Chloride Carbon Dioxide Anion Gap BUN Creatinine Estim Creat Clear Calc Est GFR (MDRD) Af Amer Est GFR (MDRD) Non-Af BUN/Creatinine Ratio Glucose Hemoglobin A1c Lactic Acid 5.3 H* Calcium Phosphorus Magnesium Total Bilirubin AST ALT Alkaline Phosphatase Total Creatine Kinase Troponin I Total Protein Albumin Globulin Albumin/Globulin Ratio Lipase TSH Free T4 Urine Color Urine Clarity Urine pH Ur Specific Sod Urine Protein Urine Glucose (UA) Urine Ketones Urine Occult Blood Urine Nitrite Urine Bilirubin Urine Urobilinogen Ur Leukocyte Esterase Urine RBC Urine WBC Ur Squamous Epith Cells Urine Bacteria Urine Mucus Urine Opiates Screen Urine Methadone Screen Ur Barbiturates Screen Ur Phencyclidine Scrn Ur Amphetamines Screen U Methamphetamin-MDMA U Benzodiazepines Scrn Urine Cocaine Screen U Cannabinoids Screen Ur Drug Screen Comment COVID-19 (AMANDA) POC Glucose 145 H 185 H 02/01/20 02/01/20 02/01/20 04:55 04:55 04:55 WBC 26.8 H RBC 3.92 L Hgb 10.8 L Hct 34.9 L MCV 89.0 MCH 27.6 MCHC 30.9 L RDW Std Deviation 46.1 H RDW Coeff of Ralph 14.2 Plt Count 311 MPV 9.4 Immature Gran % (Auto) 0.900 Neut % (Auto) 87.5 H Lymph % (Auto) 4.0 L Garden % (Auto) 7.2 Eos % (Auto) 0.1 Baso % (Auto) 0.3 Absolute Neuts (auto) 23.5 H Absolute Lymphs (auto) 1.06 Nucleated RBC % 0 Differential Comment SCANNED Diff Path Review May foll PT INR APTT Specimen Type Sample Site pH Bicarbonate Actual Total CO2 Base Excess O2 Saturation O2 % ABG pCO2 ABG pO2 Bear Test O2 Delivery Device Sodium 144 Potassium 4.1 Chloride 110 H Carbon Dioxide 27.0 Anion Gap 7 BUN 27 H Creatinine 1.41 H Estim Creat Clear Calc 42.70 Est GFR (MDRD) Af Amer 50 L Est GFR (MDRD) Non-Af 41 L BUN/Creatinine Ratio 19.1 Glucose 173 H Hemoglobin A1c Pending Lactic Acid Calcium 7.7 L Phosphorus 4.4 Magnesium 1.6 Total Bilirubin 0.40 AST 50 H ALT 30 Alkaline Phosphatase 61 Total Creatine Kinase Troponin I Total Protein 6.4 Albumin 2.4 L Globulin 4.0 Albumin/Globulin Ratio 0.6 L Lipase TSH 0.79 Free T4 1.29 Urine Color Urine Clarity Urine pH Ur Specific Sod Urine Protein Urine Glucose (UA) Urine Ketones Urine Occult Blood Urine Nitrite Urine Bilirubin Urine Urobilinogen Ur Leukocyte Esterase Urine RBC Urine WBC Ur Squamous Epith Cells Urine Bacteria Urine Mucus Urine Opiates Screen Urine Methadone Screen Ur Barbiturates Screen Ur Phencyclidine Scrn Ur Amphetamines Screen U Methamphetamin-MDMA U Benzodiazepines Scrn Urine Cocaine Screen U Cannabinoids Screen Ur Drug Screen Comment COVID-19 (AMANDA) POC Glucose 02/01/20 05:42 WBC RBC Hgb Hct MCV MCH MCHC RDW Std Deviation RDW Coeff of Ralph Plt Count MPV Immature Gran % (Auto) Neut % (Auto) Lymph % (Auto) Garden % (Auto) Eos % (Auto) Baso % (Auto) Absolute Neuts (auto) Absolute Lymphs (auto) Nucleated RBC % Differential Comment Diff Path Review PT INR APTT Specimen Type Sample Site pH Bicarbonate Actual Total CO2 Base Excess O2 Saturation O2 % ABG pCO2 ABG pO2 Bear Test O2 Delivery Device Sodium Potassium Chloride Carbon Dioxide Anion Gap BUN Creatinine Estim Creat Clear Calc Est GFR (MDRD) Af Amer Est GFR (MDRD) Non-Af BUN/Creatinine Ratio Glucose Hemoglobin A1c Lactic Acid Calcium Phosphorus Magnesium Total Bilirubin AST ALT Alkaline Phosphatase Total Creatine Kinase Troponin I Total Protein Albumin Globulin Albumin/Globulin Ratio Lipase TSH Free T4 Urine Color Urine Clarity Urine pH Ur Specific Sod Urine Protein Urine Glucose (UA) Urine Ketones Urine Occult Blood Urine Nitrite Urine Bilirubin Urine Urobilinogen Ur Leukocyte Esterase Urine RBC Urine WBC Ur Squamous Epith Cells Urine Bacteria Urine Mucus Urine Opiates Screen Urine Methadone Screen Ur Barbiturates Screen Ur Phencyclidine Scrn Ur Amphetamines Screen U Methamphetamin-MDMA U Benzodiazepines Scrn Urine Cocaine Screen U Cannabinoids Screen Ur Drug Screen Comment COVID-19 (AMANDA) POC Glucose 160 H Microbiology 01/31/20 21:15 Stool C. difficile DNA Amplification - Final 01/31/20 16:30 Mucosa - Nasopharyngeal - Preliminary 01/31/20 12:10 Urine Catheter - Catheter Legionella Antigen - Final 01/31/20 12:10 Urine Catheter - Catheter Streptococcus pneumoniae Antigen (M - Final Clinical Impression(s) from Imaging Studies Brain CT 01/31/20 10:59 IMPRESSION: Normal unenhanced CT scan of the brain. Electronically Signed: Zander Bethea, at 13:54 EST , Service support , Abdomen/Pelvis CT 01/31/20 12:50 IMPRESSION: Dense airspace disease in the right middle lobe and right lower lobe. No acute abnormality is seen. Electronically Signed: Zander Bethea, at 13:55 EST , Service support , Chest CT 01/31/20 13:04 IMPRESSION: Extensive airspace disease in the right hemithorax as described. With the patient''s history of vomiting, this may represent aspiration pneumonia. Electronically Signed: Zander Btehea, at 13:56 EST , Service support , Chest X-Ray 02/01/20 05:55 IMPRESSION: Findings suspicious for right sided predominant multifocal pneumonia. Electronically Signed: Perla Pack MD at 5:34 EST Tel , Service support , Current Medications Acetaminophen (Acetaminophen 650 Mg Suppository) 650 mg RECTAL Q4H PRN PRN PRN Reason: pain 1-10 or fever Albuterol Sulfate (Albuterol 2.5 Mg/3 Ml Vial.Neb.) 2.5 mg INHALATION Q2H PRN PRN PRN Reason: SOB/Wheezing Albuterol/Ipratropium (Ipratropium/Albuterol Sulfate 3 Ml Ampul.Neb) 3 ml INHALATION Q4HWA.RT [facility] Last Admin: 01/31/20 19:35 Dose: 3 ml Documented by: Calamine/Phenol (Menthol/Lanolin/Calamine/Znox 113 Gm Tube) 1 applic TOPICAL 4X/DAY [facility]; Protocol Last Admin: 01/31/20 23:21 Dose: 1 applicatio Documented by: Clotrimazole (Clotrimazole 1 Tube) 1 applicatio TOPICAL BID [facility]; Protocol Last Admin: 01/31/20 21:33 Dose: 1 applicatio Documented by: Heparin Sodium (Porcine) (Heparin Injection (Vial) 5,000 Unit/Ml Vial) 5,000 unit SC Q8 [facility] Last Admin: 02/01/20 05:47 Dose: 5,000 unit Documented by: Hydrocortisone Sodium Succinate (Hydrocortisone Sod Succinate 100 Mg/2 Ml Vial) 100 mg IV Q8 [facility] Last Admin: 02/01/20 05:47 Dose: 100 mg Documented by: Hydromorphone HCl (Hydromorphone 0.5 Mg/0.5 Ml Syringe) 0.5 mg IV Q4H PRN PRN PRN Reason: Pain Score 6-10 Norepinephrine Bitartrate 8 mg (/ Sodium Chloride) 250 mls @ 9.375 mls/hr CONT INF .[id number] [facility]; Protocol Last Admin: 01/31/20 15:19 Dose: Not Given Documented by: Piperacillin Sod/Tazobactam (Sod 3.375 gm/ Sodium Chloride) 50 mls @ 12.5 mls/hr IV Q8 [facility] Last Admin: 02/01/20 05:42 Dose: 12.5 mls/hr Documented by: Vancomycin IV Pharmacy to Dose (1 ea/ Sodium Chloride) 500 mls @ 250 mls/hr IV PRN PRN; Protocol PRN Reason: Rx to Dose Pantoprazole Sodium 40 mg/ (Sodium Chloride) 110 mls @ 330 mls/hr IV Q24 [facility] Last Infusion: 01/31/20 17:26 Dose: Infused Documented by: Vancomycin HCl 1,250 mg/ (Sodium Chloride) 275 mls @ 167 mls/hr IV Q12H [facility] Last Infusion: 02/01/20 03:54 Dose: Infused Documented by: Lactated Ringer's () 1,000 mls @ 75 mls/hr IV .[id number] [facility] Last Admin: 01/31/20 18:38 Dose: 75 mls/hr Documented by: Insulin Human Lispro (Insulin Lispro 100 Unit/Ml Insuln.Pen) 0 unit SC Q6 [facility]; Protocol Last Admin: 02/01/20 05:47 Dose: 1 u Documented by: Nicotine (Nicotine 21 Mg Patch) 21 mg TRANSDERM. DAILY [facility] Ondansetron HCl (Ondansetron 4 Mg/2 Ml Vial) 4 mg IV Q8H PRN PRN PRN Reason: NAUSEA/VOMITING Sodium Chloride (0.9% Saline Lock 10 Ml Syringe) 10 - 40 ml IV UD PRN PRN Reason: SALINE FLUSH Assessment/Plan Active and Suspected Problems (Last Reviewed 11/08/18 @ 14:53 by Claire Lewis GREEN PIPEFITTER, GREEN PIPEFITTER-C) Septic shock (Acute) Lactic acidosis (Acute) Acute respiratory failure with hypoxia (Acute) JANESSA (acute kidney injury) (Acute) Aspiration pneumonia (Acute) Intractable nausea and vomiting (Acute) Leukocytosis (Acute) likely due to recent high dose steroids RECOMMENDATIONS: 1. Wean supplemental oxygen to maintain saturations at or above 90%. 2. Stop continuous supplemental IV fluids. 3. Start as needed Haldol. 4. Continue empiric broad-spectrum antimicrobials, pending infectious work-up. 5. Wean stress dose steroids as tolerated. 6. Continue bronchodilators as ordered. 7. Continue nicotine replacement therapy. 8. Obtain arterial blood gas. IMPRESSIONS: 1. Septic shock with concern for aspiration pneumonia and/or urinary tract source of infection The patient does have extensive right-sided infiltrates on CT along with what appears to be a possible urinary tract source of infection. The patient has been adequately volume resuscitated and remains hemodynamically stable. No need for vasopressors at this point. Continue to monitor clinically. 2. Acute hypoxemic respiratory failure/questionable history of COPD of unknown severity/chronic tobacco dependency The patient does have radiographic evidence of extensive right-sided multifocal airspace disease, concerning for aspiration pneumonia. The patient also has an extensive smoking history with questionable COPD of unknown severity. Accordingly, we will plan to wean supplemental oxygen to maintain saturations at or above 90%. She will be continued on bronchodilator therapy as well. Antimicrobials will be continued as noted above. Nicotine replacement therapy will be continued. 3. Encephalopathy Likely metabolic in etiology. In addition to her underlying infectious etiologies, the patient is on a number of sedating medications at her baseline, including extremely high dose of gabapentin, scheduled hydroxyzine, melatonin and Seroquel, all of which would predispose her to an acute aspiration event. For now the patient will remain n.p.o. pending improvement in her mentation. 4. Acute kidney injury Likely prerenal in etiology and related to ischemic ATN in the setting of #1. The patient has received supplemental IV fluids and remains hemodynamically stable. Continue to monitor urine output. No current indication for renal replacement therapy. 5. Super morbid obesity/suspected sleep disordered breathing/GERD/hyperlipidemia/neuropathy/depression/anxiety Complicates care, management, recovery and prognosis. Hold baseline sedating medications. The patient is at high risk for sleep disordered breathing and would benefit from outpatient polysomnogram. This note was generated with [employer] dictation software. It may contain incorrect words, spelling, and punctuation that were not noted in checking the note before signing. Inpatient E&M: 16024 Init Hosp L3
[2020-02-01] MEDS: Ipratropium/Albuterol Sulfate 3 ML AMPUL.NEB INHALATION ×4 (06:56→18:40)
[2020-02-01 07:01] LABS: Allen Test Positive; Base Excess -1 mmol/L (-2 to +2); Bicarbonate 22.6 mmol/L (22-26); Blood Gas Specimen Type ART; O2 Delivery Device Cannula; PO2 74 mmHG (75-100); SITE L Radial; SO2 95 % (95-99); Total Carbon Dioxide 24 mmol/L; pCO2 32.5 mmHg (35-45); pH 7.45 (7.35-7.45)
--- NOTE | 2020-02-01 07:11 | PN_ITS ---
Patient Problems: Active and Suspected Problems (Last Reviewed 11/08/18 @ 14:53 by Claire Lewis METAL BONDING CRIB ATTENDANT, METAL BONDING CRIB ATTENDANT-C) Septic shock (Acute) Lactic acidosis (Acute) Acute respiratory failure with hypoxia (Acute) JANESSA (acute kidney injury) (Acute) Aspiration pneumonia (Acute) Intractable nausea and vomiting (Acute) Leukocytosis (Acute) likely due to recent high dose steroids Reason for Visit: Septic shock Acute hypoxic respiratory failure Aspiration pneumonia Subjective: Patient is a 54-year-old lady with multiple comorbidities resident assisted living facility was found in stool and vomitus. Subsequently transferred to the emergency department as a result. Patient was found to be relatively hypoxic on admission. Imaging studies on admission demonstrated Dense airspace disease in the right middle lobe and right lower lobe; admitted to the intensive care unit for subsequent management Objective: GENERAL: Delirious HEENT: Atraumatic; EYES; Anicteric, Normal Conjunctiva NECK; supple, normal thyroid, RESPIRATORY: Diminished to auscultation CARDIOVASCULAR: Regular S1 S2, GI: soft, normoactive bowel sounds, : No Renal angle tenderness; EXTREMITIES: No edema, no clubbing, MUSCULOSKELETAL: no muscle waisting NEURO: no lateralizing signs. SKIN: No Rash PSYCH; delirious Vitals/I&O's: Vital Signs Temp Pulse Resp BP Pulse Ox 100.3 F H 113 H 20 H 103/89 H 95 02/01/20 06:00 02/01/20 06:57 02/01/20 06:57 02/01/20 06:00 02/01/20 06:57 Oxygen Flow Rate (L/min) 6 Oxygen Delivery Method Nasal Cannula Weight: 175 kg Body Mass Index (BMI) 61.0 Finger Stick Blood Glucose 294 Intake and Output for Last 24 Hours 01/30/20 01/31/20 02/01/20 23:59 23:59 23:59 Intake Total 5382.7 / 5382.7 325 / 325 Output Total 840 / 840 500 / 500 Balance 4542.7 / 4542.7 -175 / -175 Microbiology Past 72 Hours 01/31/20 21:15 Stool C. difficile DNA Amplification - Final 01/31/20 16:30 Mucosa - Nasopharyngeal - Preliminary 01/31/20 12:10 Urine Catheter - Catheter Legionella Antigen - Final 01/31/20 12:10 Urine Catheter - Catheter Streptococcus pneumoniae Antigen (M - Final Laboratory Results 01/31/20 11:06: COVID-19 (AMANDA) Negative 01/31/20 11:10: WBC 15.9 H, RBC 4.17 L, Hgb 11.5 L, Hct 37.1, MCV 89.0, MCH 27.6, MCHC 31.0 L, RDW Std Deviation 45.6 H, RDW Coeff of Ralph 14.1, Plt Count 328, MPV 9.6, Immature Gran % (Auto) 0.400, Neut % (Auto) 73.8 H, Lymph % (Auto) 15.5 L, [place] % (Auto) 9.0, Eos % (Auto) 0.9, Baso % (Auto) 0.4, Absolute Neuts (auto) 11.8 H, Absolute Lymphs (auto) 2.47, Nucleated RBC % 0 01/31/20 11:10: PT 13.4, INR 1.1, APTT 26.7 01/31/20 11:10: Sodium 141, Potassium 4.1, Chloride 106, Carbon Dioxide 24.0, Anion Gap 11, BUN 27 H, Creatinine 1.96 H, Estim Creat Clear Calc 31.91, Est GFR (MDRD) Af Amer 34 L, Est GFR (MDRD) Non-Af 28 L, BUN/Creatinine Ratio 13.8, Glucose 156 H, Calcium 8.9, Total Bilirubin 0.30, AST 17, ALT 25, Alkaline Phosphatase 56, Total Creatine Kinase 301 H, Troponin I < 0.015, Total Protein 6.3 L, Albumin 2.8 L, Globulin 3.5, Albumin/Globulin Ratio 0.8 L 01/31/20 11:10: Lactic Acid 6.8 H* 01/31/20 11:10: Lipase 65 L 01/31/20 12:04: Specimen Type ART, Sample Site L Radial, pH 7.37, Bicarbonate Actual 22.4, Total CO2 24, Base Excess -3 L, O2 Saturation 93 L, O2 % 100, ABG pCO2 38.4, ABG pO2 68 L, Bear Test Positive, O2 Delivery Device NRB 01/31/20 12:10: Urine Color Yellow, Urine Clarity Sl Cloudy, Urine pH 5.0, Ur Specific Mobile 1.020, Urine Protein Negative, Urine Glucose (UA) Normal, Urine Ketones 5 H, Urine Occult Blood 10 H, Urine Nitrite Positive H, Urine Bilirubin Negative, Urine Urobilinogen Normal, Ur Leukocyte Esterase 25 H, Urine RBC 0 SE EN, Urine WBC 5-10 SEEN, Ur Squamous Epith Cells 25-50 SEEN, Urine Bacteria 0 SEEN, Urine Mucus 0 SEEN 01/31/20 12:10: Urine Opiates Screen NEGATIVE, Urine Methadone Screen NEGATIVE, Ur Barbiturates Screen NEGATIVE, Ur Phencyclidine Scrn NEGATIVE, Ur Amphetamines Screen NEGATIVE, U Methamphetamin-MDMA NEGATIVE, U Benzodiazepines Scrn NEGATIVE, Urine Cocaine Screen NEGATIVE, U Cannabinoids Screen NEGATIVE, Ur Drug Screen Comment 01/31/20 15:00: Lactic Acid 5.3 H* 01/31/20 17:15: POC Glucose 145 H 01/31/20 23:52: POC Glucose 185 H 02/01/20 04:55: WBC 26.8 H, RBC 3.92 L, Hgb 10.8 L, Hct 34.9 L, MCV 89.0, MCH 27.6, MCHC 30.9 L, RDW Std Deviation 46.1 H, RDW Coeff of Ralph 14.2, Plt Count 311, MPV 9.4, Immature Gran % (Auto) 0.900, Neut % (Auto) 87.5 H, Lymph % (Auto) 4.0 L, [place] % (Auto) 7.2, Eos % (Auto) 0.1, Baso % (Auto) 0.3, Absolute Neuts (auto) 23.5 H, Absolute Lymphs (auto) 1.06, Nucleated RBC % 0, Differential Comment SCANNED, Diff Path Review July02/01/20 04:55: Sodium 144, Potassium 4.1, Chloride 110 H, Carbon Dioxide 27.0, Anion Gap 7, BUN 27 H, Creatinine 1.41 H, Estim Creat Clear Calc 42.70, Est GFR (MDRD) Af Amer 50 L, Est GFR (MDRD) Non-Af 41 L, BUN/Creatinine Ratio 19.1, Glucose 173 H, Calcium 7.7 L, Phosphorus 4.4, Magnesium 1.6, Total Bilirubin 0.40, AST 50 H, ALT 30, Alkaline Phosphatase 61, Total Protein 6.4, Albumin 2.4 L, Globulin 4.0, Albumin/Globulin Ratio 0.6 L, TSH 0.79, Free T4 1.29 02/01/20 04:55: Hemoglobin A1c Pending 02/01/20 05:42: POC Glucose 160 H 02/01/20 06:50: Specimen Type ART, Sample Site L Radial, pH 7.45, Bicarbonate Actual 22.6, Total CO2 24, Base Excess -1, O2 Saturation 95, ABG pCO2 32.5 L, ABG pO2 74 L, Bear Test Positive, O2 Delivery Device Cannula, Liter Flow 6.0 Current Medications Acetaminophen (Acetaminophen 650 Mg Suppository) 650 mg RECTAL Q4H PRN PRN PRN Reason: pain 1-10 or fever Albuterol Sulfate (Albuterol 2.5 Mg/3 Ml Vial.Neb.) 2.5 mg INHALATION Q2H PRN PRN PRN Reason: SOB/Wheezing Albuterol/Ipratropium (Ipratropium/Albuterol Sulfate 3 Ml Ampul.Neb) 3 ml INHALATION Q4HWA.RT [facility] Last Admin: 02/01/20 06:56 Dose: 3 ml Documented by: Calamine/Phenol (Menthol/Lanolin/Calamine/Znox 113 Gm Tube) 1 applic TOPICAL 4X/DAY [facility]; Protocol Last Admin: 01/31/20 23:21 Dose: 1 applicatio Documented by: Clotrimazole (Clotrimazole 1 Tube) 1 applicatio TOPICAL BID [facility]; Protocol Last Admin: 01/31/20 21:33 Dose: 1 applicatio Documented by: Heparin Sodium (Porcine) (Heparin Injection (Vial) 5,000 Unit/Ml Vial) 5,000 unit SC Q8 [facility] Last Admin: 02/01/20 05:47 Dose: 5,000 unit Documented by: Hydrocortisone Sodium Succinate (Hydrocortisone Sod Succinate 100 Mg/2 Ml Vial) 100 mg IV Q8 [facility] Last Admin: 02/01/20 05:47 Dose: 100 mg Documented by: Hydromorphone HCl (Hydromorphone 0.5 Mg/0.5 Ml Syringe) 0.5 mg IV Q4H PRN PRN PRN Reason: Pain Score 6-10 Norepinephrine Bitartrate 8 mg (/ Sodium Chloride) 250 mls @ 9.375 mls/hr CONT INF .[id number] [facility]; Protocol Last Admin: 01/31/20 15:19 Dose: Not Given Documented by: Piperacillin Sod/Tazobactam (Sod 3.375 gm/ Sodium Chloride) 50 mls @ 12.5 mls/hr IV Q8 [facility] Last Admin: 02/01/20 05:42 Dose: 12.5 mls/hr Documented by: Vancomycin IV Pharmacy to Dose (1 ea/ Sodium Chloride) 500 mls @ 250 mls/hr IV PRN PRN; Protocol PRN Reason: Rx to Dose Pantoprazole Sodium 40 mg/ (Sodium Chloride) 110 mls @ 330 mls/hr IV Q24 [facility] Last Infusion: 01/31/20 17:26 Dose: Infused Documented by: Vancomycin HCl 1,250 mg/ (Sodium Chloride) 275 mls @ 167 mls/hr IV Q12H [facility] Last Infusion: 02/01/20 03:54 Dose: Infused Documented by: Lactated Ringer's () 1,000 mls @ 75 mls/hr IV .[id number] [facility] Last Admin: 01/31/20 18:38 Dose: 75 mls/hr Documented by: Insulin Human Lispro (Insulin Lispro 100 Unit/Ml Insuln.Pen) 0 unit SC Q6 [facility]; Protocol Last Admin: 02/01/20 05:47 Dose: 1 u Documented by: Nicotine (Nicotine 21 Mg Patch) 21 mg TRANSDERM. DAILY [facility] Ondansetron HCl (Ondansetron 4 Mg/2 Ml Vial) 4 mg IV Q8H PRN PRN PRN Reason: NAUSEA/VOMITING Sodium Chloride (0.9% Saline Lock 10 Ml Syringe) 10 - 40 ml IV UD PRN PRN Reason: SALINE FLUSH STROKE Vital Signs/Narrative: Vital Signs Temp Pulse Resp BP Pulse Ox 02/01/20 06:57 113 H 20 H 95 02/01/20 06:00 100.3 F H 109 H 23 H 103/89 H 100 02/01/20 05:00 100.2 F H 108 H 24 H 111/71 97 02/01/20 04:00 100.0 F H 109 H 24 H 113/71 97 Medical Necessity - Tobacco Use Smoking Status: Current every day smoker Assessment/Plan All Active Problems (Last Reviewed 11/08/18 @ 14:53 by Claire Lewis METAL BONDING CRIB ATTENDANT, METAL BONDING CRIB ATTENDANT- C) Septic shock (Acute) Lactic acidosis (Acute) Acute respiratory failure with hypoxia (Acute) JANESSA (acute kidney injury) (Acute) Aspiration pneumonia (Acute) Intractable nausea and vomiting (Acute) Severe sepsis (Acute) Severe sepsis (Acute) Overdose (Acute) Unresponsive episode (Acute) Leukocytosis (Acute) Diarrhea (Resolved) History of Clostridium difficile (Resolved) Acute exacerbation of chronic obstructive pulmonary disease (COPD) (Ruled-out) SIRS with Severe sepsis due to UTI (Ruled-out) Urinary tract infection (Ruled-out) Patient is a 54-year-old lady with multiple comorbidities resident assisted living facility was found in stool and vomitus. Subsequently transferred to the emergency department as a result. Patient was found to be relatively hypoxic on admission. Imaging studies on admission demonstrated Dense airspace disease in the right middle lobe and right lower lobe; admitted to the intensive care unit for subsequent management 1. Septic shock ?Secondary to aspiration pneumonia imaging studies on admission as stated above demonstrated Dense airspace disease in the right middle lobe and right lower lobe. Patient managed per protocol with aggressive IV fluid resuscitation broad-spectrum antibiotic therapy with consultation placed to electronic calibration technician Dr. Hawk 2. Acute hypoxic respiratory failure ?Secondary to aspiration pneumonia management as discussed above 3. Acute kidney injury ?Suspected to be secondary to ATN from patient sepsis kidney creatinine on admission was 1.96 started on IV fluid with subsequent monitoring of electrolytes ordered 4. Acute metabolic encephalopathy ?Due to combination of patient's acute kidney injury as well as her infectious etiology 5. Hypotension ?Secondary to septic shock management as discussed above 6. Diabetes mellitus type II - Controlled; patient's oral hypoglycemics held. Placed on Accu-Cheks a.c. and at bedtime and covered with sliding scale insulin 7. Hypothyroidism - Patient is on levothyroxine home dose continued 8. Essential hypertension - antihypertensives on hold in view of patient presenting complaints 9. Dyslipidemia ?Patient is on simvastatin at home plan is to resume once patient level of sensorium improves 10. GERD ?Patient on PPI 11. Chronic use of steroids ?Patient did receive stress dose of Solu-Cortef 12. Rheumatoid arthritis ?Patient is on steroids as well as Plaquenil 13. Psoriatic Arthritis and Psoriasis 14. Depression with anxiety ?Patient psychotropic medications held in view of her presenting symptoms 15. Tobacco dependence ?Do plan to academic counselor once level of sensorium improves 16. Morbid obesity with BMI of 60.6 ?Patient will benefit from referral to gastric bypass surgeon in view of patient having other comorbidities including diabetes mellitus type 2 17. Neuropathy ?From diabetic neuropathy 18. DVT Prophylaxis -Heparin TID Code Status -Full Clinical Impression(s) from Imaging Studies Brain CT 01/31/20 10:59 IMPRESSION: Normal unenhanced CT scan of the brain. Electronically Signed: Zander Bethea, at 13:54 EST , Service support , Abdomen/Pelvis CT 01/31/20 12:50 IMPRESSION: Dense airspace disease in the right middle lobe and right lower lobe. No acute abnormality is seen. Electronically Signed: Zanedr Bethea, at 13:55 EST , Service support , Chest CT 01/31/20 13:04 IMPRESSION: Extensive airspace disease in the right hemithorax as described. With the patient''s history of vomiting, this may represent aspiration pneumonia. Electronically Signed: Zander Bethea, at 13:56 EST , Service support , Chest X-Ray 02/01/20 05:55 IMPRESSION: Findings suspicious for right sided predominant multifocal pneumonia. Electronically Signed: Perla Pack MD at 5:34 EST Tel , Service support , Inpatient E&M: [id number] [facility] H[facility] L3
[2020-02-01] MEDS: Menthol/Lanolin/Calamine/Znox 113 GM Tube 1 APPLIC TOPICAL ×3 (07:50→21:22)
[2020-02-01] MEDS: Haloperidol Lactate 5 MG/ML Vial 3 MG IV ×2 (08:08→14:15)
[2020-02-01] MEDS: 0.9% Saline Lock 10 ML Syringe IV ×3 (08:09→21:26)
[2020-02-01 11:35] LABS: Bedside Glucose 178 mg/dL (70-110)
--- NOTE | 2020-02-01 11:47 | CASEMGMT ---
Patient is from [facility]. SW will send them clinicals to update them on her condition. Kaitlin ZUNIGA MSW
[2020-02-01 13:06] LABS: Pathologist Review Reviewed
--- NOTE | 2020-02-01 13:44 | CASEMGMT ---
[facility] faxed updates to [facility]. Kaitlin ZUNIGA DOBIE MAN
[2020-02-01] MEDS: Haloperidol Lactate 5 MG/ML Vial IV (16:22)
[2020-02-01 19:45] LABS: Bedside Glucose 198 mg/dL (70-110)
[2020-02-01] MEDS: QUEtiapine 25 MG Tablet 50 MG PO (21:35)
[2020-02-02] VITALS (23 sets, daily range): BP systolic 90–139; BP diastolic 56–99; PULSE 80–996; RESP 17–26; TEMP 36.6–37.6; O2SAT 89–99
[2020-02-02] MEDS: Insulin Lispro 100 UNIT/ML INSULN.PEN SC (00:02)
[2020-02-02 00:11] LABS: Bedside Glucose 190 mg/dL (70-110)
[2020-02-02 02:16] LABS: Vancomycin, Trough Level 10.7 ug/mL (5.0-15.0)
--- NOTE | 2020-02-02 02:35 | PCM.RX.CS ---
Consult Pharmacy has been consulted to manage selected antiobiotic: Vancomycin Type of Consult: Follow-up Suspected Infection: Pneumonia Labs: Sodium 144 mmol/L (136-145) 02/01/20 04:55 Potassium 4.1 mmol/L (3.5-5.1) 02/01/20 04:55 Chloride 110 mmol/L (98-107) H 02/01/20 04:55 Carbon Dioxide 27.0 mmol/L (21.0-32.0) 02/01/20 04:55 Anion Gap 7 (5-15) 02/01/20 04:55 BUN 27 mg/dL (7-18) H 02/01/20 04:55 Creatinine 1.41 mg/dL (0.55-1.02) H 02/01/20 04:55 Est GFR (MDRD) Af Amer 50 mL/min (>60) L 02/01/20 04:55 Est GFR (MDRD) Non-Af 41 mL/min (>60) L 02/01/20 04:55 BUN/Creatinine Ratio 19.1 RATIO (-20) 02/01/20 04:55 Glucose 173 mg/dL (74-106) H 02/01/20 04:55 Vancomycin Trough 10.7 ug/mL (5.0-15.0) 02/02/20 01:54 Microbiology: Microbiology 02/01/20 11:15 Sputum, Induced/Lukens Gram Stain - Final 01/31/20 12:10 Urine, Random Urine Culture - Preliminary Gram negative christopher 01/31/20 16:30 Mucosa - Nasopharyngeal - Final 01/31/20 21:15 Stool C. difficile DNA Amplification - Final 01/31/20 12:10 Urine Catheter - Catheter Legionella Antigen - Final 01/31/20 12:10 Urine Catheter - Catheter Streptococcus pneumoniae Antigen (M - Final Goal Trough: 15-20 mcg/mL Pharmacy Plan for Drug Dosing: Pharmacy Service will continue to monitor and adjust dosing as required. TROUGH 10.7 INCREASE TO 1750 Q12 H Follow-Up Labs: Trough Vancomycin Labs to be done on [date and time ordered]: 02/03 @ [id number]
[2020-02-02] MEDS: Hydrocortisone Sod Succinate 100 MG/2 ML Vial IV (05:29)
[2020-02-02] MEDS: Heparin Injection (Vial) 5,000 UNIT/ML VIAL 5000 UNIT SC ×3 (05:29→21:56)
[2020-02-02 05:36] LABS: Bedside Glucose 131 mg/dL (70-110)
--- NOTE | 2020-02-02 06:04 | PN_ITS ---
Subjective: The patient was seen and examined at the bedside this morning. Events from the last 24 hours have been reviewed. The patient is currently afebrile, hemodynamically stable and maintaining appropriate oxygen saturations on 2 L/min via nasal cannula. The patient is more alert, interactive and appropriate than yesterday. Objective: The patient's most recent lab work, culture data and imaging studies have all been personally reviewed. Coronavirus PCR was negative. Rapid influenza screen was negative. Urine culture was positive for Pseudomonas aeruginosa. General: Alert, Cooperative, No apparent distress, - - Super morbidly obese HEENT: Atraumatic, Normocephalic Oral: No Gingival or Mucosal Lesions/ Ulcerations Neck: Supple, No Nodes, Trachea Midline Lungs: Diminished Cardiovascular: Regular rate, Regular Rhythm Abdomen: Bowel Sounds Present, Soft, Non Tender, Obese Extremities: No clubbing, No cyanosis Skin: No breakdown Musculoskeletal: No Muscle Wasting Lymphatic: No Cervical, Supraclavicular, or Inguinal Adenopathy Neurological: Neuro grossly intact Vital Signs Temp Pulse Resp BP Pulse Ox 99.2 F H 100 23 H 127/62 H 94 02/02/20 04:00 02/02/20 05:00 02/02/20 05:00 02/02/20 05:00 02/02/20 05:00 Oxygen Flow Rate (L/min) 2 Oxygen Delivery Method Nasal Cannula Weight: 303 lb 2.17 oz Body Mass Index (BMI) 61.0 Finger Stick Blood Glucose 294 Intake and Output for Last 24 Hours 01/31/20 02/01/20 02/02/20 23:59 23:59 23:59 Intake Total 5382.7 / 5382.7 1810 / 1810 325 / 325 Output Total 840 / 840 1525 / 1525 295 / 295 Balance 4542.7 / 4542.7 285 / 285 30 / 30 Labs (Last 48 Hours) 01/31/20 01/31/20 01/31/20 11:06 11:10 11:10 WBC 15.9 H RBC 4.17 L Hgb 11.5 L Hct 37.1 MCV 89.0 MCH 27.6 MCHC 31.0 L RDW Std Deviation 45.6 H RDW Coeff of Ralph 14.1 Plt Count 328 MPV 9.6 Immature Gran % (Auto) 0.400 Neut % (Auto) 73.8 H Lymph % (Auto) 15.5 L [place] % (Auto) 9.0 Eos % (Auto) 0.9 Baso % (Auto) 0.4 Absolute Neuts (auto) 11.8 H Absolute Lymphs (auto) 2.47 Nucleated RBC % 0 Differential Comment Diff Path Review PT 13.4 INR 1.1 APTT 26.7 Specimen Type Sample Site pH Bicarbonate Actual Total CO2 Base Excess O2 Saturation O2 % ABG pCO2 ABG pO2 Bear Test O2 Delivery Device Liter Flow Sodium Potassium Chloride Carbon Dioxide Anion Gap BUN Creatinine Estim Creat Clear Calc Est GFR (MDRD) Af Amer Est GFR (MDRD) Non-Af BUN/Creatinine Ratio Glucose Hemoglobin A1c Lactic Acid Calcium Phosphorus Magnesium Total Bilirubin AST ALT Alkaline Phosphatase Total Creatine Kinase Troponin I Total Protein Albumin Globulin Albumin/Globulin Ratio Lipase TSH Free T4 Urine Color Urine Clarity Urine pH Ur Specific Pixley Urine Protein Urine Glucose (UA) Urine Ketones Urine Occult Blood Urine Nitrite Urine Bilirubin Urine Urobilinogen Ur Leukocyte Esterase Urine RBC Urine WBC Ur Squamous Epith Cells Urine Bacteria Urine Mucus Vancomycin Trough Urine Opiates Screen Urine Methadone Screen Ur Barbiturates Screen Ur Phencyclidine Scrn Ur Amphetamines Screen U Methamphetamin-MDMA U Benzodiazepines Scrn Urine Cocaine Screen U Cannabinoids Screen Ur Drug Screen Comment COVID-19 (AMANDA) Negative POC Glucose 01/31/20 01/31/20 01/31/20 11:10 11:10 11:10 WBC RBC Hgb Hct MCV MCH MCHC RDW Std Deviation RDW Coeff of Ralph Plt Count MPV Immature Gran % (Auto) Neut % (Auto) Lymph % (Auto) [place] % (Auto) Eos % (Auto) Baso % (Auto) Absolute Neuts (auto) Absolute Lymphs (auto) Nucleated RBC % Differential Comment Diff Path Review PT INR APTT Specimen Type Sample Site pH Bicarbonate Actual Total CO2 Base Excess O2 Saturation O2 % ABG pCO2 ABG pO2 Bear Test O2 Delivery Device Liter Flow Sodium 141 Potassium 4.1 Chloride 106 Carbon Dioxide 24.0 Anion Gap 11 BUN 27 H Creatinine 1.96 H Estim Creat Clear Calc 31.91 Est GFR (MDRD) Af Amer 34 L Est GFR (MDRD) Non-Af 28 L BUN/Creatinine Ratio 13.8 Glucose 156 H Hemoglobin A1c Lactic Acid 6.8 H* Calcium 8.9 Phosphorus Magnesium Total Bilirubin 0.30 AST 17 ALT 25 Alkaline Phosphatase 56 Total Creatine Kinase 301 H Troponin I < 0.015 Total Protein 6.3 L Albumin 2.8 L Globulin 3.5 Albumin/Globulin Ratio 0.8 L Lipase 65 L TSH Free T4 Urine Color Urine Clarity Urine pH Ur Specific Pix[place] Urine Protein Urine Glucose (UA) Urine Ketones Urine Occult Blood Urine Nitrite Urine Bilirubin Urine Urobilinogen Ur Leukocyte Esterase Urine RBC Urine WBC Ur Squamous Epith Cells Urine Bacteria Urine Mucus Vancomycin Trough Urine Opiates Screen Urine Methadone Screen Ur Barbiturates Screen Ur Phencyclidine Scrn Ur Amphetamines Screen U Methamphetamin-MDMA U Benzodiazepines Scrn Urine Cocaine Screen U Cannabinoids Screen Ur Drug Screen Comment COVID-19 (AMANDA) POC Glucose 01/31/20 01/31/20 01/31/20 12:04 12:10 12:10 WBC RBC Hgb Hct MCV MCH MCHC RDW Std Deviation RDW Coeff of Ralph Plt Count MPV Immature Gran % (Auto) Neut % (Auto) Lymph % (Auto) [place] % (Auto) Eos % (Auto) Baso % (Auto) Absolute Neuts (auto) Absolute Lymphs (auto) Nucleated RBC % Differential Comment Diff Path Review PT INR APTT Specimen Type ART Sample Site L Radial pH 7.37 Bicarbonate Actual 22.4 Total CO2 24 Base Excess -3 L O2 Saturation 93 L O2 % 100 ABG pCO2 38.4 ABG pO2 68 L Bear Test Positive O2 Delivery Device NRB Liter Flow Sodium Potassium Chloride Carbon Dioxide Anion Gap BUN Creatinine Estim Creat Clear Calc Est GFR (MDRD) Af Amer Est GFR (MDRD) Non-Af BUN/Creatinine Ratio Glucose Hemoglobin A1c Lactic Acid Calcium Phosphorus Magnesium Total Bilirubin AST ALT Alkaline Phosphatase Total Creatine Kinase Troponin I Total Protein Albumin Globulin Albumin/Globulin Ratio Lipase TSH Free T4 Urine Color Yellow Urine Clarity Sl Cloudy Urine pH 5.0 Ur Specific Pixley 1.020 Urine Protein Negative Urine Glucose (UA) Normal Urine Ketones 5 H Urine Occult Blood 10 H Urine Nitrite Positive H Urine Bilirubin Negative Urine Urobilinogen Normal Ur Leukocyte Esterase 25 H Urine RBC 0 SEEN Urine WBC 5-10 SEEN Ur Squamous Epith Cells 25-50 SEEN Urine Bacteria 0 SEEN Urine Mucus 0 SEEN Vancomycin Trough Urine Opiates Screen NEGATIVE Urine Methadone Screen NEGATIVE Ur Barbiturates Screen NEGATIVE Ur Phencyclidine Scrn NEGATIVE Ur Amphetamines Screen NEGATIVE U Methamphetamin-MDMA NEGATIVE U Benzodiazepines Scrn NEGATIVE Urine Cocaine Screen NEGATIVE U Cannabinoids Screen NEGATIVE Ur Drug Screen Comment COVID-19 (AMANDA) POC Glucose 01/31/20 01/31/20 01/31/20 15:00 17:15 23:52 WBC RBC Hgb Hct MCV MCH MCHC RDW Std Deviation RDW Coeff of Ralph Plt Count MPV Immature Gran % (Auto) Neut % (Auto) Lymph % (Auto) [place] % (Auto) Eos % (Auto) Baso % (Auto) Absolute Neuts (auto) Absolute Lymphs (auto) Nucleated RBC % Differential Comment Diff Path Review PT INR APTT Specimen Type Sample Site pH Bicarbonate Actual Total CO2 Base Excess O2 Saturation O2 % ABG pCO2 ABG pO2 Bear Test O2 Delivery Device Liter Flow Sodium Potassium Chloride Carbon Dioxide Anion Gap BUN Creatinine Estim Creat Clear Calc Est GFR (MDRD) Af Amer Est GFR (MDRD) Non-Af BUN/Creatinine Ratio Glucose Hemoglobin A1c Lactic Acid 5.3 H* Calcium Phosphorus Magnesium Total Bilirubin AST ALT Alkaline Phosphatase Total Creatine Kinase Troponin I Total Protein Albumin Globulin Albumin/Globulin Ratio Lipase TSH Free T4 Urine Color Urine Clarity Urine pH Ur Specific [place] Urine Protein Urine Glucose (UA) Urine Ketones Urine Occult Blood Urine Nitrite Urine Bilirubin Urine Urobilinogen Ur Leukocyte Esterase Urine RBC Urine WBC Ur Squamous Epith Cells Urine Bacteria Urine Mucus Vancomycin Trough Urine Opiates Screen Urine Methadone Screen Ur Barbiturates Screen Ur Phencyclidine Scrn Ur Amphetamines Screen U Methamphetamin-MDMA U Benzodiazepines Scrn Urine Cocaine Screen U Cannabinoids Screen Ur Drug Screen Comment COVID-19 (AMANDA) POC Glucose 145 H 185 H 02/01/20 02/01/20 02/01/20 04:55 04:55 04:55 WBC 26.8 H RBC 3.92 L Hgb 10.8 L Hct 34.9 L MCV 89.0 MCH 27.6 MCHC 30.9 L RDW Std Deviation 46.1 H RDW Coeff of Ralph 14.2 Plt Count 311 MPV 9.4 Immature Gran % (Auto) 0.900 Neut % (Auto) 87.5 H Lymph % (Auto) 4.0 L [place] % (Auto) 7.2 Eos % (Auto) 0.1 Baso % (Auto) 0.3 Absolute Neuts (auto) 23.5 H Absolute Lymphs (auto) 1.06 Nucleated RBC % 0 Differential Comment SCANNED Diff Path Review Reviewed PT INR APTT Specimen Type Sample Site pH Bicarbonate Actual Total CO2 Base Excess O2 Saturation O2 % ABG pCO2 ABG pO2 Bear Test O2 Delivery Device Liter Flow Sodium 144 Potassium 4.1 Chloride 110 H Carbon Dioxide 27.0 Anion Gap 7 BUN 27 H Creatinine 1.41 H Estim Creat Clear Calc 42.70 Est GFR (MDRD) Af Amer 50 L Est GFR (MDRD) Non-Af 41 L BUN/Creatinine Ratio 19.1 Glucose 173 H Hemoglobin A1c 6.0 H Lactic Acid Calcium 7.7 L Phosphorus 4.4 Magnesium 1.6 Total Bilirubin 0.40 AST 50 H ALT 30 Alkaline Phosphatase 61 Total Creatine Kinase Troponin I Total Protein 6.4 Albumin 2.4 L Globulin 4.0 Albumin/Globulin Ratio 0.6 L Lipase TSH 0.79 Free T4 1.29 Urine Color Urine Clarity Urine pH Ur Specific [place] Urine Protein Urine Glucose (UA) Urine Ketones Urine Occult Blood Urine Nitrite Urine Bilirubin Urine Urobilinogen Ur Leukocyte Esterase Urine RBC Urine WBC Ur Squamous Epith Cells Urine Bacteria Urine Mucus Vancomycin Trough Urine Opiates Screen Urine Methadone Screen Ur Barbiturates Screen Ur Phencyclidine Scrn Ur Amphetamines Screen U Methamphetamin-MDMA U Benzodiazepines Scrn Urine Cocaine Screen U Cannabinoids Screen Ur Drug Screen Comment COVID-19 (AMANDA) POC Glucose 02/01/20 02/01/20 02/01/20 05:42 06:50 11:26 WBC RBC Hgb Hct MCV MCH MCHC RDW Std Deviation RDW Coeff of Ralph Plt Count MPV Immature Gran % (Auto) Neut % (Auto) Lymph % (Auto) [place] % (Auto) Eos % (Auto) Baso % (Auto) Absolute Neuts (auto) Absolute Lymphs (auto) Nucleated RBC % Differential Comment Diff Path Review PT INR APTT Specimen Type ART Sample Site L Radial pH 7.45 Bicarbonate Actual 22.6 Total CO2 24 Base Excess -1 O2 Saturation 95 O2 % ABG pCO2 32.5 L ABG pO2 74 L Bear Test Positive O2 Delivery Device Cannula Liter Flow 6.0 Sodium Potassium Chloride Carbon Dioxide Anion Gap BUN Creatinine Estim Creat Clear Calc Est GFR (MDRD) Af Amer Est GFR (MDRD) Non-Af BUN/Creatinine Ratio Glucose Hemoglobin A1c Lactic Acid Calcium Phosphorus Magnesium Total Bilirubin AST ALT Alkaline Phosphatase Total Creatine Kinase Troponin I Total Protein Albumin Globulin Albumin/Globulin Ratio Lipase TSH Free T4 Urine Color Urine Clarity Urine pH Ur Specific [place] Urine Protein Urine Glucose (UA) Urine Ketones Urine Occult Blood Urine Nitrite Urine Bilirubin Urine Urobilinogen Ur Leukocyte Esterase Urine RBC Urine WBC Ur Squamous Epith Cells Urine Bacteria Urine Mucus Vancomycin Trough Urine Opiates Screen Urine Methadone Screen Ur Barbiturates Screen Ur Phencyclidine Scrn Ur Amphetamines Screen U Methamphetamin-MDMA U Benzodiazepines Scrn Urine Cocaine Screen U Cannabinoids Screen Ur Drug Screen Comment COVID-19 (AMANDA) POC Glucose 160 H 178 H 02/01/20 02/02/20 02/02/20 19:30 00:01 01:54 WBC RBC Hgb Hct MCV MCH MCHC RDW Std Deviation RDW Coeff of Ralph Plt Count MPV Immature Gran % (Auto) Neut % (Auto) Lymph % (Auto) [place] % (Auto) Eos % (Auto) Baso % (Auto) Absolute Neuts (auto) Absolute Lymphs (auto) Nucleated RBC % Differential Comment Diff Path Review PT INR APTT Specimen Type Sample Site pH Bicarbonate Actual Total CO2 Base Excess O2 Saturation O2 % ABG pCO2 ABG pO2 Bear Test O2 Delivery Device Liter Flow Sodium Potassium Chloride Carbon Dioxide Anion Gap BUN Creatinine Estim Creat Clear Calc Est GFR (MDRD) Af Amer Est GFR (MDRD) Non-Af BUN/Creatinine Ratio Glucose Hemoglobin A1c Lactic Acid Calcium Phosphorus Magnesium Total Bilirubin AST ALT Alkaline Phosphatase Total Creatine Kinase Troponin I Total Protein Albumin Globulin Albumin/Globulin Ratio Lipase TSH Free T4 Urine Color Urine Clarity Urine pH Ur Specific [place] Urine Protein Urine Glucose (UA) Urine Ketones Urine Occult Blood Urine Nitrite Urine Bilirubin Urine Urobilinogen Ur Leukocyte Esterase Urine RBC Urine WBC Ur Squamous Epith Cells Urine Bacteria Urine Mucus Vancomycin Trough 10.7 Urine Opiates Screen Urine Methadone Screen Ur Barbiturates Screen Ur Phencyclidine Scrn Ur Amphetamines Screen U Methamphetamin-MDMA U Benzodiazepines Scrn Urine Cocaine Screen U Cannabinoids Screen Ur Drug Screen Comment COVID-19 (AMANDA) POC Glucose 198 H 190 H 02/02/20 05:27 WBC RBC Hgb Hct MCV MCH MCHC RDW Std Deviation RDW Coeff of Ralph Plt Count MPV Immature Gran % (Auto) Neut % (Auto) Lymph % (Auto) [place] % (Auto) Eos % (Auto) Baso % (Auto) Absolute Neuts (auto) Absolute Lymphs (auto) Nucleated RBC % Differential Comment Diff Path Review PT INR APTT Specimen Type Sample Site pH Bicarbonate Actual Total CO2 Base Excess O2 Saturation O2 % ABG pCO2 ABG pO2 Bear Test O2 Delivery Device Liter Flow Sodium Potassium Chloride Carbon Dioxide Anion Gap BUN Creatinine Estim Creat Clear Calc Est GFR (MDRD) Af Amer Est GFR (MDRD) Non-Af BUN/Creatinine Ratio Glucose Hemoglobin A1c Lactic Acid Calcium Phosphorus Magnesium Total Bilirubin AST ALT Alkaline Phosphatase Total Creatine Kinase Troponin I Total Protein Albumin Globulin Albumin/Globulin Ratio Lipase TSH Free T4 Urine Color Urine Clarity Urine pH Ur Specific [place] Urine Protein Urine Glucose (UA) Urine Ketones Urine Occult Blood Urine Nitrite Urine Bilirubin Urine Urobilinogen Ur Leukocyte Esterase Urine RBC Urine WBC Ur Squamous Epith Cells Urine Bacteria Urine Mucus Vancomycin Trough Urine Opiates Screen Urine Methadone Screen Ur Barbiturates Screen Ur Phencyclidine Scrn Ur Amphetamines Screen U Methamphetamin-MDMA U Benzodiazepines Scrn Urine Cocaine Screen U Cannabinoids Screen Ur Drug Screen Comment COVID-19 (AMANDA) POC Glucose 131 H Microbiology 02/01/20 11:15 Sputum, Induced/Lukens Gram Stain - Final 01/31/20 12:10 Urine, Random Urine Culture - Preliminary Gram negative christopher 01/31/20 16:30 Mucosa - Nasopharyngeal - Final 01/31/20 21:15 Stool C. difficile DNA Amplification - Final 01/31/20 12:10 Urine Catheter - Catheter Legionella Antigen - Final 01/31/20 12:10 Urine Catheter - Catheter Streptococcus pneumoniae Antigen (M - Final Clinical Impression(s) from Imaging Studies Brain CT 01/31/20 10:59 IMPRESSION: Normal unenhanced CT scan of the brain. Electronically Signed: Zander Bethea, at 13:54 EST , Service support , Abdomen/Pelvis CT 01/31/20 12:50 IMPRESSION: Dense airspace disease in the right middle lobe and right lower lobe. No acute abnormality is seen. Electronically Signed: Zander Bethea, at 13:55 EST , Service support , Chest CT 01/31/20 13:04 IMPRESSION: Extensive airspace disease in the right hemithorax as described. With the patient''s history of vomiting, this may represent aspiration pneumonia. Electronically Signed: Zander Bethea, at 13:56 EST , Service support , Chest X-Ray 02/01/20 05:55 IMPRESSION: Findings suspicious for right sided predominant multifocal pneumonia. Electronically Signed: Perla Pack MD at 5:34 EST Tel , Service support , Medical Necessity - Tobacco Use Smoking Status: Current every day smoker Assessment/Plan All Active Problems (Last Reviewed 11/08/18 @ 14:53 by Claire Lewis RESIDENT PHYSICIAN IN RADIOLOGY, RESIDENT PHYSICIAN IN RADIOLOGY- C) Septic shock (Acute) Lactic acidosis (Acute) Acute respiratory failure with hypoxia (Acute) JANESSA (acute kidney injury) (Acute) Aspiration pneumonia (Acute) Intractable nausea and vomiting (Acute) Severe sepsis (Acute) Severe sepsis (Acute) Overdose (Acute) Unresponsive episode (Acute) Leukocytosis (Acute) Diarrhea (Resolved) History of Clostridium difficile (Resolved) Acute exacerbation of chronic obstructive pulmonary disease (COPD) (Ruled-out) SIRS with Severe sepsis due to UTI (Ruled-out) Urinary tract infection (Ruled-out) RECOMMENDATIONS: 1. Wean supplemental oxygen to maintain saturations at or above 90%. 2. Recommend slow reintroduction of outpatient medications. 3. Stop stress dose steroids and restart baseline prednisone regimen. 4. Continue antimicrobials. 5. Continue bronchodilator therapy. 6. Continue nicotine replacement therapy. 7. The patient is medically stable for transfer out of the intensive care unit. IMPRESSIONS: 1. Septic shock with concern for aspiration pneumonia and/or urinary tract source of infection Resolved. The patient does have extensive right-sided infiltrates on CT along with what appears to be a possible urinary tract source of infection. The patient has been adequately volume resuscitated and remains hemodynamically stable. No need for vasopressors at this point. Continue to monitor clinically. The patient stress dose steroids will be discontinued today and the patient will be transition back to her baseline prednisone regimen. Recommend completing a 7-day treatment course of antimicrobials. 2. Acute hypoxemic respiratory failure/questionable history of COPD of unknown severity/chronic tobacco dependency The patient does have radiographic evidence of extensive right-sided multifocal airspace disease, concerning for aspiration pneumonia. The patient also has an extensive smoking history with questionable COPD of unknown severity. Accordingly, we will plan to wean supplemental oxygen to maintain saturations at or above 90%. She will be continued on bronchodilator therapy as well. Antimicrobials will be continued as noted above. Nicotine replacement therapy will be continued. 3. Encephalopathy Improving. Likely metabolic in etiology. In addition to her underlying infectious etiologies, the patient is on a number of sedating medications at her baseline, including extremely high dose of gabapentin, scheduled hydroxyzine, melatonin and Seroquel, all of which would predispose her to an acute aspiration event. 4. Acute kidney injury Likely prerenal in etiology and related to ischemic ATN in the setting of #1. The patient has received supplemental IV fluids and remains hemodynamically stable. Continue to monitor urine output. No current indication for renal replacement therapy. 5. Super morbid obesity/suspected sleep disordered breathing/GERD/hyperlipidemia/neuropathy/depression/anxiety Complicates care, management, recovery and prognosis. Hold baseline sedating medications. The patient is at high risk for sleep disordered breathing and would benefit from outpatient polysomnogram. This note was generated with [employer] dictation software. It may contain incorrect words, spelling, and punctuation that were not noted in checking the note before signing. Inpatient E&M: [id number] [facility]
--- NOTE | 2020-02-02 07:11 | PN_ITS ---
Patient Problems: Active and Suspected Problems (Last Reviewed 11/08/18 @ 14:53 by Claire Lewis BRASS CHASER, BRASS CHASER-C) Septic shock (Acute) Lactic acidosis (Acute) Acute respiratory failure with hypoxia (Acute) JANESSA (acute kidney injury) (Acute) Aspiration pneumonia (Acute) Intractable nausea and vomiting (Acute) Leukocytosis (Acute) likely due to recent high dose steroids Reason for Visit: Septic shock Acute hypoxic respiratory failure Aspiration pneumonia Subjective: Patient is a 54-year-old lady with multiple comorbidities resident assisted living facility was found in stool and vomitus. Subsequently transferred to the emergency department as a result. Patient was found to be relatively hypoxic on admission. Imaging studies on admission demonstrated Dense airspace disease in the right middle lobe and right lower lobe; admitted to the intensive care unit for subsequent management Patient urine cultures positive for Pseudomonas currently on appropriate antibiotic therapy. Patient is less delirious compared to the previous day plan is for patient to be transferred from the intensive care unit to [facility] floor Objective: GENERAL: In no distress HEENT: Atraumatic; EYES; Anicteric, Normal Conjunctiva NECK; supple, normal thyroid, RESPIRATORY: Diminished to auscultation CARDIOVASCULAR: Regular S1 S2, GI: soft, normoactive bowel sounds, : No Renal angle tenderness; EXTREMITIES: No edema, no clubbing, MUSCULOSKELETAL: no muscle waisting NEURO: no lateralizing signs. SKIN: No Rash PSYCH; not affect Vitals/I&O's: Vital Signs Temp Pulse Resp BP Pulse Ox 99.5 F H 101 H 21 H 90/70 96 02/02/20 07:00 02/02/20 07:00 02/02/20 07:00 02/02/20 07:00 02/02/20 07:00 Oxygen Flow Rate (L/min) 2 Oxygen Delivery Method Nasal Cannula Weight: 137.5 kg Body Mass Index (BMI) 61.0 Finger Stick Blood Glucose 294 Intake and Output for Last 24 Hours 01/31/20 02/01/20 02/02/20 23:59 23:59 23:59 Intake Total 5382.7 / 5382.7 1810 / 1810 330.63 / 330.63 Output Total 840 / 840 1525 / 1525 395 / 395 Balance 4542.7 / 4542.7 285 / 285 -64.37 / -64.37 Microbiology Past 72 Hours 02/01/20 11:15 Sputum, Induced/Lukens Gram Stain - Final 01/31/20 12:10 Urine, Random Urine Culture - Preliminary Gram negative christopher 01/31/20 16:30 Mucosa - Nasopharyngeal - Final 01/31/20 21:15 Stool C. difficile DNA Amplification - Final 01/31/20 12:10 Urine Catheter - Catheter Legionella Antigen - Final 01/31/20 12:10 Urine Catheter - Catheter Streptococcus pneumoniae Antigen (M - Final Laboratory Results 02/01/20 04:55: Diff Path Review Reviewed 02/01/20 04:55: Hemoglobin A1c 6.0 H 02/01/20 11:26: POC Glucose 178 H 02/01/20 19:30: POC Glucose 198 H 02/02/20 00:01: POC Glucose 190 H 02/02/20 01:54: Vancomycin Trough 10.7 02/02/20 05:27: POC Glucose 131 H Current Medications Acetaminophen (Acetaminophen 650 Mg Suppository) 650 mg RECTAL Q4H PRN PRN PRN Reason: pain 1-10 or fever Albuterol Sulfate (Albuterol 2.5 Mg/3 Ml Vial.Neb.) 2.5 mg INHALATION Q2H PRN PRN PRN Reason: SOB/Wheezing Albuterol/Ipratropium (Ipratropium/Albuterol Sulfate 3 Ml Ampul.Neb) 3 ml INHALATION Q4HWA.RT MAX Last Admin: 02/01/20 18:40 Dose: 3 ml Documented by: Calamine/Phenol (Menthol/Lanolin/Calamine/Znox 113 Gm Tube) 1 applic TOPICAL 4X/DAY MAX; Protocol Last Admin: 02/01/20 21:22 Dose: 1 applicatio Documented by: Clotrimazole (Clotrimazole 1 Tube) 1 applicatio TOPICAL BID MAX; Protocol Last Admin: 02/01/20 21:23 Dose: 1 applicatio Documented by: Haloperidol Lactate (Haloperidol Lactate 5 Mg/Ml Vial) 3 mg IV Q6H PRN PRN PRN Reason: AGITATION Last Admin: 02/01/20 14:15 Dose: 3 mg Documented by: Heparin Sodium (Porcine) (Heparin Injection (Vial) 5,000 Unit/Ml Vial) 5,000 unit SC Q8 MAX Last Admin: 02/02/20 05:29 Dose: 5,000 unit Documented by: Hydrocortisone Sodium Succinate (Hydrocortisone Sod Succinate 100 Mg/2 Ml Vial) 100 mg IV Q8 [facility] Last Admin: 02/02/20 05:29 Dose: 100 mg Documented by: Piperacillin Sod/Tazobactam (Sod 3.375 gm/ Sodium Chloride) 50 mls @ 12.5 mls/hr IV Q8 MAX Last Infusion: 02/02/20 06:00 Dose: 12.5 mls/hr Documented by: Vancomycin IV Pharmacy to Dose (1 ea/ Sodium Chloride) 500 mls @ 250 mls/hr IV PRN PRN; Protocol PRN Reason: Rx to Dose Pantoprazole Sodium 40 mg/ (Sodium Chloride) 110 mls @ 330 mls/hr IV Q24 MAX Last Infusion: 02/01/20 18:45 Dose: Infused Documented by: Vancomycin HCl 1,750 mg/ (Sodium Chloride) 535 mls @ 250 mls/hr IV Q12H [facility] Insulin Human Lispro (Insulin Lispro 100 Unit/Ml Insuln.Pen) 0 unit SC Q6 MAX; Protocol Last Admin: 02/02/20 05:29 Dose: Not Given Documented by: Nicotine (Nicotine 21 Mg Patch) 21 mg TRANSDERM. DAILY [facility] Last Admin: 02/01/20 11:06 Dose: 21 mg Documented by: Sodium Chloride (0.9% Saline Lock 10 Ml Syringe) 10 - 40 ml IV UD PRN PRN Reason: SALINE FLUSH Last Admin: 02/01/20 21:26 Dose: 10 ml Documented by: STROKE Vital Signs/Narrative: Vital Signs Temp Pulse Resp BP Pulse Ox 02/02/20 07:00 99.5 F H 101 H 21 H 90/70 96 02/02/20 06:00 99.5 F H 101 H 20 H 134/80 H 97 02/02/20 05:00 100 23 H 127/62 H 94 02/02/20 04:00 99.2 F H 98 22 H 125/58 H 94 02/02/20 03:58 99 Medical Necessity - Tobacco Use Smoking Status: Current every day smoker Assessment/Plan All Active Problems (Last Reviewed 11/08/18 @ 14:53 by Claire Lewis BRASS CHASER, BRASS CHASER- C) Septic shock (Acute) Lactic acidosis (Acute) Acute respiratory failure with hypoxia (Acute) JANESSA (acute kidney injury) (Acute) Aspiration pneumonia (Acute) Intractable nausea and vomiting (Acute) Severe sepsis (Acute) Severe sepsis (Acute) Overdose (Acute) Unresponsive episode (Acute) Leukocytosis (Acute) Diarrhea (Resolved) History of Clostridium difficile (Resolved) Acute exacerbation of chronic obstructive pulmonary disease (COPD) (Ruled-out) SIRS with Severe sepsis due to UTI (Ruled-out) Urinary tract infection (Ruled-out) Patient is a 54-year-old lady with multiple comorbidities resident assisted living facility was found in stool and vomitus. Subsequently transferred to the emergency department as a result. Patient was found to be relatively hypoxic on admission. Imaging studies on admission demonstrated Dense airspace disease in the right middle lobe and right lower lobe; admitted to the intensive care unit for subsequent management 1. Septic shock ?Secondary to aspiration pneumonia imaging studies on admission as stated above demonstrated Dense airspace disease in the right middle lobe and right lower lobe. Patient managed per protocol with aggressive IV fluid resuscitation broad-spectrum antibiotic therapy with consultation placed to aerial applicator pilot Dr. Hawk -02/02/2020; Patient urine cultures positive for Pseudomonas currently on appropriate antibiotic therapy. Patient is less delirious compared to the previous day plan is for patient to be transferred from the intensive care unit to [facility] floor 2. Acute hypoxic respiratory failure ?Secondary to aspiration pneumonia management as discussed above 3. Acute kidney injury ?Suspected to be secondary to ATN from patient sepsis kidney creatinine on admission was 1.96 started on IV fluid with subsequent monitoring of electrolytes ordered 4. Acute metabolic encephalopathy ?Due to combination of patient's acute kidney injury as well as her infectious etiology 5. Hypotension ?Secondary to septic shock management as discussed above 6. Diabetes mellitus type II - Controlled; patient's oral hypoglycemics held. Placed on Accu-Cheks a.c. and at bedtime and covered with sliding scale insulin 7. Hypothyroidism - Patient is on levothyroxine home dose continued 8. Essential hypertension - antihypertensives on hold in view of patient presenting complaints 9. Dyslipidemia ?Patient is on simvastatin at home plan is to resume once patient level of sensorium improves 10. GERD ?Patient on PPI 11. Chronic use of steroids ?Patient did receive stress dose of Solu-Cortef 12. Rheumatoid arthritis ?Patient is on steroids as well as Plaquenil 13. Psoriatic Arthritis and Psoriasis 14. Depression with anxiety ?Patient psychotropic medications held in view of her presenting symptoms 15. Tobacco dependence ?Do plan to funeral pre arrangement counselor once level of sensorium improves 16. Morbid obesity with BMI of 60.6 ?Patient will benefit from referral to gastric bypass surgeon in view of patient having other comorbidities including diabetes mellitus type 2 17. Neuropathy ?From diabetic neuropathy 18. DVT Prophylaxis -Heparin TID Code Status -Full Inpatient E&M: 79177 Subs Hosp L2
[2020-02-02] MEDS: Menthol/Lanolin/Calamine/Znox 113 GM Tube 1 APPLIC TOPICAL ×3 (09:23→21:55)
[2020-02-02] MEDS: Ipratropium/Albuterol Sulfate 3 ML AMPUL.NEB INHALATION ×2 (09:58→15:08)
[2020-02-02 12:50] LABS: Bedside Glucose 142 mg/dL (70-110)
--- NOTE | 2020-02-02 14:13 | NURSING ---
report called to med-surg for transfer to room 309, transferred per bed with belongings
--- NOTE | 2020-02-02 14:25 | NURSING ---
[place] [facility] [place] 0210
--- NOTE | 2020-02-02 14:56 | CASEMGMT ---
Social Work SW spoke with Justen Allenvani from [facility] ([phone]) who states pt is on the Assisted Living Waiver Program. Pt has spent the last 10 months at [facility] and moved into [facility] on 01/18/20. Justen states that due to Covid face to face visits have not been happening and therefore Justen does not know how pt was doing at the assisted Living. SW met with pt to discuss discharge plans. Pt was awake in bed when SW entered room. Every question SW asking including either or questions pt answered yes and gave no further expanded conversation. SW will followup when pt is able to converse appropriately. PAYAM Monroe
--- NOTE | 2020-02-02 15:00 | CON.PCM_ITS ---
Reason for Consult Date of Consultation: 02/03/20 Reason for Consultation: Toenails History of Present Illness: The patient is a 54 year old female with multiple medical problems was seen today for consultation (by medicine team) for long painful thick toenails. She is unable to maintain them herself. Patient denies any other foot or ankle complaints. Past Medical History Past Medical History (Chronic Problems): Chronic Problems (Last Reviewed 11/08/18 @ 14:53 by Claire Lewis COSMETIC ACCOUNT COORDINATOR, COSMETIC ACCOUNT COORDINATOR-C) Bronchiectasis (Chronic) Chronic obstructive lung disease (Chronic) Cigarette smoker (Chronic) Rheumatoid arthritis (Chronic) Chronic back pain (Chronic) Obesity, morbid, BMI 50 or higher (Chronic) Drug-seeking behavior (Chronic) Diabetes mellitus, type II (Chronic) Psoriatic arthritis (Chronic) HLD (hyperlipidemia) (Chronic) Hypothyroidism (Chronic) Anxiety and depression (Chronic) GERD (gastroesophageal reflux disease) (Chronic) HTN (hypertension) (Chronic) Medical History: Medical History (Last Reviewed 11/08/18 @ 14:53 by Claire Lewis COSMETIC ACCOUNT COORDINATOR, COSMETIC ACCOUNT COORDINATOR-C) Intractable nausea and vomiting (Acute) R11.2 Severe sepsis (Acute) A41.9, R65.20 Severe sepsis (Acute) A41.9, R65.20 Overdose (Acute) T50.901A Unresponsive episode (Acute) Chronic obstructive lung disease (Chronic) J44.9 Cigarette smoker (Chronic) F17.210 Rheumatoid arthritis (Chronic) M06.9 Leukocytosis (Acute) D72.829 likely due to recent high dose steroids Chronic back pain (Chronic) M54.9, G89.29 Obesity, morbid, BMI 50 or higher (Chronic) E66.01 Drug-seeking behavior (Chronic) Z76.5 Diabetes mellitus, type II (Chronic) E11.9 Psoriatic arthritis (Chronic) L40.50 HLD (hyperlipidemia) (Chronic) E78.5 Hypothyroidism (Chronic) E03.9 Anxiety and depression (Chronic) F41.9, F32.9 GERD (gastroesophageal reflux disease) (Chronic) K21.9 HTN (hypertension) (Chronic) I10 Abdominal pain (Inactive) R10.9 Acute hypoxemic respiratory failure (Inactive) J96.01 Community acquired pneumonia (Inactive) J18.9 Diarrhea (Inactive) R19.7 Diarrhea (Inactive) R19.7 Lower abdominal pain (Inactive) R10.30 MRSA (methicillin resistant staph aureus) culture positive (Inactive) Z22.322 Nausea and vomiting (Inactive) R11.2 Pneumonia, bacterial (Inactive) J15.9 SIRS (systemic inflammatory response syndrome) (Inactive) R65.10 Severe sepsis (Inactive) A41.9, R65.20 UTI (urinary tract infection) (Inactive) N39.0 UTI (urinary tract infection) (Inactive) N39.0 UTI (urinary tract infection) (Inactive) N39.0 Allergies fentanyl Allergy (Verified 09/12/18 15:18) Rash Iodinated Contrast Media [Iodinated Contrast Media - IV Dye] Allergy (Verified 09/12/18 15:18) Hives CAN BE PRE-MEDICATED levofloxacin [From Levaquin] Allergy (Verified 09/12/18 15:18) Rash nitrofurantoin [From Macrobid] Allergy (Verified 09/12/18 15:18) Rash Sulfa (Sulfonamide Antibiotics) Allergy (Verified 09/12/18 15:18) Itching Home Medications: Ambulatory Orders Medication Instructions Recorded Duloxetine HCl 60 mg PO DAILY 08/28/15 Levothyroxine [Synthroid] 150 mcg PO DAILY 08/28/15 Lisinopril [Zestril] 10 mg PO DAILY 06/28/16 Glimepiride [Amaryl] 4 mg PO DAILY 02/23/17 Hydroxychloroquine [Plaquenil] 300 mg PO DAILYCM 06/05/18 cycloBENZAPRine HCl [Flexeril] 10 mg PO BID 06/05/18 Acetaminophen 650 mg PO Q6H PRN PRN 01/31/20 Amitriptyline HCl [Elavil] 100 mg PO DAILY 01/31/20 Aspirin [Aspirin, Baby] 81 mg PO DAILY@0800 01/31/20 Cholecalciferol (Vitamin D3) 50 mcg PO DAILY 01/31/20 [Vitamin D3] Cranberry Fruit Extract [Cranberry] 400 mg PO DAILY 01/31/20 Cyclobenzaprine HCl 5 mg PO DINNER 01/31/20 Fluticasone/Vilanterol [Breo 1 puff INHALATION DAILY 01/31/20 Ellipta 200-25 Mcg INH] Gabapentin 1,200 mg PO DINNER 01/31/20 Gabapentin 1,600 mg PO DAILY 01/31/20 Gabapentin [Neurontin] 800 mg PO QHS 01/31/20 Hydroxyzine Pamoate [Vistaril] 50 mg PO 4X/DAY 01/31/20 Melatonin 10 mg PO QHS 01/31/20 Omeprazole [Prilosec] 20 mg PO DAILY 01/31/20 Oxybutynin [Ditropan] 10 mg PO DAILY 01/31/20 Prednisone 10 mg PO DAILY 01/31/20 Quetiapine Fumarate 300 mg PO QHS 01/31/20 Simvastatin 40 mg PO DAILY 01/31/20 Sitagliptin Phosphate [Januvia] 100 mg PO DAILY 01/31/20 Tofacitinib Citrate [Xeljanz] 5 mg PO BID 01/31/20 Surgical History: cholecystectomy, gastric bypass, - - Multiple back surgeries, ?6 Psychiatric History: Anxiety, Depression FOURTH OFFICER History: No pertinent FOURTH OFFICER history Smoking Status: Current every day smoker - *Family History Paternal History Items: Cancer - Lung CA, tobacco use. Offspring History Items: - - Obesity Maternal History Items: Stroke Review of Systems Constitutional: Denies: Chills, Fever Respiratory: Reports: Shortness of Breath Gastrointestinal: Denies: Nausea, Vomiting Patient Problems: Active and Suspected Problems (Last Reviewed 11/08/18 @ 14:53 by Claire Lewis COSMETIC ACCOUNT COORDINATOR, COSMETIC ACCOUNT COORDINATOR-C) Septic shock (Acute) Lactic acidosis (Acute) Acute respiratory failure with hypoxia (Acute) JANESSA (acute kidney injury) (Acute) Aspiration pneumonia (Acute) Intractable nausea and vomiting (Acute) Leukocytosis (Acute) likely due to recent high dose steroids - Physical Exam Vitals/I&O's: Vital Signs Temp Pulse Resp BP Pulse Ox 97.6 F L 89 20 H 142/72 H 94 02/03/20 07:02 02/03/20 07:15 02/03/20 07:15 02/03/20 02:10 02/03/20 07:15 Oxygen Flow Rate (L/min) 2 Oxygen Delivery Method Nasal Cannula Weight: 137.5 kg Body Mass Index (BMI) 61.0 Finger Stick Blood Glucose 294 Intake and Output for Last 24 Hours 02/01/20 02/02/20 02/03/20 23:59 23:59 23:59 Intake Total 1810 / 1810 1270.00 / 1270.00 885 / 885 Output Total 1525 / 1525 1545 / 1545 300 / 300 Balance 285 / 285 -275.00 / -275.00 585 / 585 General: Alert, Oriented x3, Cooperative Extremities: No cyanosis, Capillary Refill Less than 3 Seconds, No Calf Tenderness, Peripheral Pulses Normal, - - Toenails 1-5 bilateral are yellow, thickened, dystrophic, incurvated, painful with subungual debris. Diffuse xerosis to feet bilateral. Otherwise no open lesions, no erythema, no cellulitis, no ecchymosis, no necrosis bilateral foot and ankle. Skin: No breakdown - No ulcerations or tissue breakdown to the foot/ankle bilateral. Musculoskeletal: - - Sensation intact to the foot/ankle bilateral. Motor function intact to the foot and ankle bilateral. No m/s POP or pain on ROM to the foot/ankle bilateral. Psych/Mental Status: Appropriate Microbiology Past 72 Hours 02/01/20 11:15 Sputum, Induced/Lukens Gram Stain - Final 02/01/20 11:15 Sputum, Induced/Lukens Respiratory Culture - Preliminary Appears to be normal respiratory rafiq. Further studies to follow. 01/31/20 11:10 Blood Culture (Wb) - Left Hand Blood Culture - Preliminary No growth in 48 hours. 01/31/20 11:20 Blood Culture (Wb) - Right Hand Blood Culture - Preliminary No growth in 48 hours. 01/31/20 12:10 Urine, Random Urine Culture - Final Pseudomonas aeroginosa 01/31/20 16:30 Mucosa - Nasopharyngeal - Final 01/31/20 21:15 Stool C. difficile DNA Amplification - Final 01/31/20 12:10 Urine Catheter - Catheter Legionella Antigen - Final 01/31/20 12:10 Urine Catheter - Catheter Streptococcus pneumoniae Antigen (M - Final Laboratory Results 02/02/20 12:44: POC Glucose 142 H 02/02/20 17:09: POC Glucose 103 02/02/20 23:58: POC Glucose 111 H 02/03/20 06:36: POC Glucose 114 H Current Medications Acetaminophen (Acetaminophen 650 Mg Suppository) 650 mg RECTAL Q4H PRN PRN PRN Reason: pain 1-10 or fever Albuterol Sulfate (Albuterol 2.5 Mg/3 Ml Vial.Neb.) 2.5 mg INHALATION Q2H PRN PRN PRN Reason: SOB/Wheezing Albuterol/Ipratropium (Ipratropium/Albuterol Sulfate 3 Ml Ampul.Neb) 3 ml INHALATION Q4HWA.RT [facility] Last Admin: 02/03/20 07:15 Dose: 3 ml Documented by: Calamine/Phenol (Menthol/Lanolin/Calamine/Znox 113 Gm Tube) 1 applic TOPICAL 4X/DAY [facility]; Protocol Last Admin: 02/02/20 21:55 Dose: 1 applicatio Documented by: Clotrimazole (Clotrimazole 1 Tube) 1 applicatio TOPICAL BID [facility]; Protocol Last Admin: 02/02/20 21:57 Dose: 1 applicatio Documented by: Heparin Sodium (Porcine) (Heparin Injection (Vial) 5,000 Unit/Ml Vial) 5,000 unit SC Q8 [facility] Last Admin: 02/03/20 06:40 Dose: 5,000 unit Documented by: Piperacillin Sod/Tazobactam (Sod 3.375 gm/ Sodium Chloride) 50 mls @ 12.5 mls/hr IV Q8 [facility] Last Admin: 02/03/20 06:37 Dose: 12.5 mls/hr Documented by: Vancomycin IV Pharmacy to Dose (1 ea/ Sodium Chloride) 500 mls @ 250 mls/hr IV PRN PRN; Protocol PRN Reason: Rx to Dose Pantoprazole Sodium 40 mg/ (Sodium Chloride) 110 mls @ 330 mls/hr IV Q24 [facility] Last Infusion: 02/02/20 09:31 Dose: Infused Documented by: Vancomycin HCl 1,750 mg/ (Sodium Chloride) 535 mls @ 250 mls/hr IV Q12H [facility] Last Infusion: 02/03/20 05:39 Dose: Infused Documented by: Insulin Human Lispro (Insulin Lispro 100 Unit/Ml Insuln.Pen) 0 unit SC ACHS [facility]; Protocol Last Admin: 02/03/20 06:37 Dose: Not Given Documented by: Nicotine (Nicotine 21 Mg Patch) 21 mg TRANSDERM. DAILY [facility] Last Admin: 02/02/20 09:21 Dose: 21 mg Documented by: Prednisone (Prednisone 10 Mg Tablet) 10 mg PO DAILY@0800 [facility] Last Admin: 02/03/20 07:59 Dose: 10 mg Documented by: Sodium Chloride (0.9% Saline Lock 10 Ml Syringe) 10 - 40 ml IV UD PRN PRN Reason: SALINE FLUSH Last Admin: 02/02/20 21:44 Dose: 10 ml Documented by: Assessment/Plan All Active Problems (Last Reviewed 11/08/18 @ 14:53 by Claire Lewis COSMETIC ACCOUNT COORDINATOR, COSMETIC ACCOUNT COORDINATOR- C) Septic shock (Acute) Lactic acidosis (Acute) Acute respiratory failure with hypoxia (Acute) JANESSA (acute kidney injury) (Acute) Aspiration pneumonia (Acute) Intractable nausea and vomiting (Acute) Severe sepsis (Acute) Severe sepsis (Acute) Overdose (Acute) Unresponsive episode (Acute) Leukocytosis (Acute) Diarrhea (Resolved) History of Clostridium difficile (Resolved) Acute exacerbation of chronic obstructive pulmonary disease (COPD) (Ruled-out) SIRS with Severe sepsis due to UTI (Ruled-out) Urinary tract infection (Ruled-out) Onychomycosis bilateral 1-5 toenails Xerosis/Dry skin bilateral foot Reviewed condition and treatment options. At this time we will proceed palliative care. Debrided toenails 1-5 bilateral using a nail nipper, removing bulk, this was done without incident. Eucerin cream to feet daily for dry skin. Podiatry will follow up with patient as needed. [facility] care [facility] for future [facility] care. Thank you for consultation.
[2020-02-02 17:20] LABS: Bedside Glucose 103 mg/dL (70-110)
[2020-02-02] MEDS: Haloperidol Lactate 5 MG/ML Vial 3 MG IV (20:25)
[2020-02-02] MEDS: 0.9% Saline Lock 10 ML Syringe IV (21:44)
[2020-02-03] VITALS (10 sets, daily range): BP systolic 141–144; BP diastolic 66–93; PULSE 76–94; RESP 18–20; TEMP 36.4–37.6; O2SAT 92–97
[2020-02-03 00:05] LABS: Bedside Glucose 111 mg/dL (70-110)
[2020-02-03] MEDS: Heparin Injection (Vial) 5,000 UNIT/ML VIAL 5000 UNIT SC ×3 (06:40→22:19)
[2020-02-03 06:51] LABS: Bedside Glucose 114 mg/dL (70-110)
[2020-02-03] MEDS: Ipratropium/Albuterol Sulfate 3 ML AMPUL.NEB INHALATION ×3 (07:15→20:19)
--- NOTE | 2020-02-03 07:46 | PCM.PN.HOSP ---
Patient Problems: Active and Suspected Problems (Last Reviewed 11/08/18 @ 14:53 by Claire Lewis PARACHUTE HARNESS RIGGER, PARACHUTE HARNESS RIGGER-C) Septic shock (Acute) Lactic acidosis (Acute) Acute respiratory failure with hypoxia (Acute) JANESSA (acute kidney injury) (Acute) Aspiration pneumonia (Acute) Intractable nausea and vomiting (Acute) Leukocytosis (Acute) likely due to recent high dose steroids Reason for Visit: Acute hypoxic respiratory failure Acute cystitis Subjective: Patient seen level of sensorium continues to improve. Urine culture so far positive for Pseudomonas. On appropriate antibiotic therapy Objective: GENERAL: In no distress HEENT: Atraumatic; EYES; Anicteric, Normal Conjunctiva NECK; supple, normal thyroid, RESPIRATORY: Diminished to auscultation CARDIOVASCULAR: Regular S1 S2, GI: soft, normoactive bowel sounds, : No Renal angle tenderness; EXTREMITIES: No edema, no clubbing, MUSCULOSKELETAL: no muscle waisting NEURO: no lateralizing signs. SKIN: No Rash PSYCH; not affect Vitals/I&O's: Vital Signs Temp Pulse Resp BP Pulse Ox 97.6 F L 86 20 H 142/72 H 94 02/03/20 07:02 02/03/20 06:46 02/03/20 02:10 02/03/20 02:10 02/03/20 06:46 Oxygen Flow Rate (L/min) 2 Oxygen Delivery Method Nasal Cannula Weight: 137.5 kg Body Mass Index (BMI) 61.0 Finger Stick Blood Glucose 294 Intake and Output for Last 24 Hours 02/01/20 02/02/20 02/03/20 23:59 23:59 23:59 Intake Total 1810 / 1810 1270.00 / 1270.00 885 / 885 Output Total 1525 / 1525 1545 / 1545 300 / 300 Balance 285 / 285 -275.00 / -275.00 585 / 585 Microbiology Past 72 Hours 02/01/20 11:15 Sputum, Induced/Lukens Gram Stain - Final 02/01/20 11:15 Sputum, Induced/Lukens Respiratory Culture - Preliminary Appears to be normal respiratory rafiq. Further studies to follow. 01/31/20 11:10 Blood Culture (Wb) - Left Hand Blood Culture - Preliminary No growth in 48 hours. 01/31/20 11:20 Blood Culture (Wb) - Right Hand Blood Culture - Preliminary No growth in 48 hours. 01/31/20 12:10 Urine, Random Urine Culture - Final Pseudomonas aeroginosa 01/31/20 16:30 Mucosa - Nasopharyngeal - Final 01/31/20 21:15 Stool C. difficile DNA Amplification - Final 01/31/20 12:10 Urine Catheter - Catheter Legionella Antigen - Final 01/31/20 12:10 Urine Catheter - Catheter Streptococcus pneumoniae Antigen (M - Final Laboratory Results 02/02/20 12:44: POC Glucose 142 H 02/02/20 17:09: POC Glucose 103 02/02/20 23:58: POC Glucose 111 H 02/03/20 06:36: POC Glucose 114 H Current Medications Acetaminophen (Acetaminophen 650 Mg Suppository) 650 mg RECTAL Q4H PRN PRN PRN Reason: pain 1-10 or fever Albuterol Sulfate (Albuterol 2.5 Mg/3 Ml Vial.Neb.) 2.5 mg INHALATION Q2H PRN PRN PRN Reason: SOB/Wheezing Albuterol/Ipratropium (Ipratropium/Albuterol Sulfate 3 Ml Ampul.Neb) 3 ml INHALATION Q4HWA.RT [facility] Last Admin: 02/03/20 07:15 Dose: 3 ml Documented by: Calamine/Phenol (Menthol/Lanolin/Calamine/Znox 113 Gm Tube) 1 applic TOPICAL 4X/DAY [facility]; Protocol Last Admin: 02/02/20 21:55 Dose: 1 applicatio Documented by: Clotrimazole (Clotrimazole 1 Tube) 1 applicatio TOPICAL BID MAX; Protocol Last Admin: 02/02/20 21:57 Dose: 1 applicatio Documented by: Heparin Sodium (Porcine) (Heparin Injection (Vial) 5,000 Unit/Ml Vial) 5,000 unit SC Q8 [facility] Last Admin: 02/03/20 06:40 Dose: 5,000 unit Documented by: Piperacillin Sod/Tazobactam (Sod 3.375 gm/ Sodium Chloride) 50 mls @ 12.5 mls/hr IV Q8 [facility] Last Admin: 02/03/20 06:37 Dose: 12.5 mls/hr Documented by: Vancomycin IV Pharmacy to Dose (1 ea/ Sodium Chloride) 500 mls @ 250 mls/hr IV PRN PRN; Protocol PRN Reason: Rx to Dose Pantoprazole Sodium 40 mg/ (Sodium Chloride) 110 mls @ 330 mls/hr IV Q24 [facility] Last Infusion: 02/02/20 09:31 Dose: Infused Documented by: Vancomycin HCl 1,750 mg/ (Sodium Chloride) 535 mls @ 250 mls/hr IV Q12H [facility] Last Infusion: 02/03/20 05:39 Dose: Infused Documented by: Insulin Human Lispro (Insulin Lispro 100 Unit/Ml Insuln.Pen) 0 unit SC ACHS MAX; Protocol Last Admin: 02/03/20 06:37 Dose: Not Given Documented by: Nicotine (Nicotine 21 Mg Patch) 21 mg TRANSDERM. DAILY [facility] Last Admin: 02/02/20 09:21 Dose: 21 mg Documented by: Prednisone (Prednisone 10 Mg Tablet) 10 mg PO DAILY@0800 [facility] Sodium Chloride (0.9% Saline Lock 10 Ml Syringe) 10 - 40 ml IV UD PRN PRN Reason: SALINE FLUSH Last Admin: 02/02/20 21:44 Dose: 10 ml Documented by: STROKE Vital Signs/Narrative: Vital Signs Temp Pulse Pulse Ox 02/03/20 07:02 97.6 F L 02/03/20 06:46 86 94 Medical Necessity - Tobacco Use Smoking Status: Current every day smoker Assessment/Plan All Active Problems (Last Reviewed 11/08/18 @ 14:53 by Claire Lewis PARACHUTE HARNESS RIGGER, PARACHUTE HARNESS RIGGER-C) Septic shock (Acute) Lactic acidosis (Acute) Acute respiratory failure with hypoxia (Acute) JANESSA (acute kidney injury) (Acute) Aspiration pneumonia (Acute) Intractable nausea and vomiting (Acute) Severe sepsis (Acute) Severe sepsis (Acute) Overdose (Acute) Unresponsive episode (Acute) Leukocytosis (Acute) Diarrhea (Resolved) History of Clostridium difficile (Resolved) Acute exacerbation of chronic obstructive pulmonary disease (COPD) (Ruled-out) SIRS with Severe sepsis due to UTI (Ruled-out) Urinary tract infection (Ruled-out) Patient is a 54-year-old lady with multiple comorbidities resident assisted living facility was found in stool and vomitus. Subsequently transferred to the emergency department as a result. Patient was found to be relatively hypoxic on admission. Imaging studies on admission demonstrated Dense airspace disease in the right middle lobe and right lower lobe; admitted to the intensive care unit for subsequent management 1. Septic shock ?Secondary to aspiration pneumonia imaging studies on admission as stated above demonstrated Dense airspace disease in the right middle lobe and right lower lobe. Patient managed per protocol with aggressive IV fluid resuscitation broad-spectrum antibiotic therapy with consultation placed to software development intern Dr. Hawk -02/02/2020; Patient urine cultures positive for Pseudomonas currently on appropriate antibiotic therapy. Patient is less delirious compared to the previous day plan is for patient to be transferred from the intensive care unit to [facility] -02/03/2020; patient clinical condition continues to improve 2. Acute hypoxic respiratory failure ?Secondary to aspiration pneumonia management as discussed above 3. Acute kidney injury ?Suspected to be secondary to ATN from patient sepsis kidney creatinine on admission was 1.96 started on IV fluid with subsequent monitoring of electrolytes ordered ?02/03/2020; resolved 4. Acute cystitis with Pseudomonas aeruginosa ?Patient on appropriate antibiotic therapy 5. Acute metabolic encephalopathy ?Due to combination of patient's acute kidney injury as well as her infectious etiology 6. Hypotension ?Secondary to septic shock management as discussed above 02/03/2020; resolved 7. Diabetes mellitus type II - Controlled; patient's oral hypoglycemics held. Placed on Accu-Cheks a.c. and at bedtime and covered with sliding scale insulin 8. Hypothyroidism - Patient is on levothyroxine home dose continued 9. Essential hypertension - antihypertensives on hold in view of patient presenting complaints 10. Dyslipidemia ?Patient is on simvastatin at home plan is to resume once patient level of sensorium improves 11. GERD ?Patient on PPI 12. Chronic use of steroids ?Patient did receive stress dose of Solu-Cortef 13. Rheumatoid arthritis ?Patient is on steroids as well as Plaquenil 14. Psoriatic Arthritis and Psoriasis 15. Depression with anxiety ?Patient psychotropic medications held in view of her presenting symptoms 16. Tobacco dependence ?Do plan to student financial services counselor once level of sensorium improves 17. Morbid obesity with BMI of 60.6 ?Patient will benefit from referral to gastric bypass surgeon in view of patient having other comorbidities including diabetes mellitus type 2 18. Neuropathy ?From diabetic neuropathy 19. DVT Prophylaxis -Heparin TID Code Status -Full Inpatient E&M: 94024 Subs Hosp L2
[2020-02-03] MEDS: predniSONE 10 MG Tablet PO (07:59)
[2020-02-03 09:47] LABS: Absolute Lymphocyte Count 1.75 X10^3/uL (0.83-4.51); Absolute Neutrophil Count 7.2 X10^3/uL (2.0-7.7); Basophil# 0.05 X10^3/uL; Basophil% 0.5 % (0-1); Eosinophil# 0.26 X10^3/uL; Eosinophils% 2.6 % (0-5); Hematocrit 33.1 % (37-47); Hemoglobin 10.1 g/dL (12.0-15.0); Lymphocyte # 1.75 X10^3/ul (4.0); Lymphocyte % 17.8 % (19-41); Mean Corp Hgb Conc 30.5 g/dL (32-36); Mean Corpuscular Hgb 27.7 pg (27.0-32.0); Mean Corpuscular Volume 90.7 fL (81-99); Mean Platelet Vol. 10.2 fl (6.2-12.0); Monocyte# 0.55 X10^3/uL; Monocyte% 5.6 % (0-10); NRBC Flagged by Analyzer 0 % (0-5); Neutrophil # 7.17 X10^3/uL (2.7-7.7); Neutrophil % 72.9 % (47-70); Platelet Count 268 K/mm3 (150-450); RBC Distribution Width CV 14.3 % (11.6-14.6); RBC Distribution Width SD 47.6 fl (35.1-43.9); Red Blood Count 3.65 M/mm3 (4.2-5.4); White Blood Count 9.8 K/mm3 (4.4-11.0)
[2020-02-03 09:58] LABS: Anion Gap 6 (5-15); BUN 16 mg/dL (7-18); BUN/Creat Ratio 17.8 RATIO (10-20); Calcium,Total 8.5 mg/dL (8.5-10.1); Chloride 117 mmol/L (98-107); EST Glomerular Filtration Rate 69 mL/min (>60); Est Glom Filt Rate - Afr Amer 84 mL/min (>60); Glucose 151 mg/dL (74-106); Magnesium 1.9 mg/dL (1.6-2.6); Potassium 3.6 mmol/L (3.5-5.1); Sodium Level 147 mmol/L (136-145)
[2020-02-03] MEDS: Menthol/Lanolin/Calamine/Znox 113 GM Tube 1 APPLIC TOPICAL ×4 (10:58→22:18)
[2020-02-03 11:21] LABS: Bedside Glucose 150 mg/dL (70-110)
--- NOTE | 2020-02-03 16:45 | CASEMGMT ---
SOCIAL WORK Met with patient in room. Patient laying in bed watching TV upon this worker entering room. Introduced role and reason for referral. Patient reports lives at [facility] and wishes to return to apartment at discharge. Inquired about ADLS and IADLS. Patient reports staff at [facility] assists with needs. Patient uses a walker for assistance with ambulation. Patient required extra time and questions repeated. Patient's baseline unknown to this worker. Discussed case with nursing. Patient was a 2 assist up to chair earlier today. Do not anticipate discharge this weekend. SW to follow up Wednesday. Plan: DORON-YUSUF to follow up Wednesday. NIEVES Dias, SENIOR SALES DIRECTOR
[2020-02-03 17:11] LABS: Bedside Glucose 150 mg/dL (70-110)
[2020-02-03 22:30] LABS: Bedside Glucose 139 mg/dL (70-110)
[2020-02-04] VITALS (9 sets, daily range): BP systolic 127–152; BP diastolic 57–112; PULSE 74–91; RESP 18–24; TEMP 36.8–37.4; O2SAT 92–100
--- NOTE | 2020-02-04 02:22 | PCM.RX.CS ---
Consult Pharmacy has been consulted to manage selected antiobiotic: Vancomycin Type of Consult: Follow-up Labs: Sodium 147 mmol/L (136-145) H 02/03/20 09:10 Potassium 3.6 mmol/L (3.5-5.1) 02/03/20 09:10 Chloride 117 mmol/L (98-107) H 02/03/20 09:10 Carbon Dioxide 24.0 mmol/L (21.0-32.0) 02/03/20 09:10 Anion Gap 6 (5-15) 02/03/20 09:10 BUN 16 mg/dL (7-18) 02/03/20 09:10 Creatinine 0.90 mg/dL (0.55-1.02) 02/03/20 09:10 Est GFR (MDRD) Af Amer 84 mL/min (>60) 02/03/20 09:10 Est GFR (MDRD) Non-Af 69 mL/min (>60) 02/03/20 09:10 BUN/Creatinine Ratio 17.8 RATIO (10-20) 02/03/20 09:10 Glucose 151 mg/dL (74-106) H 02/03/20 09:10 Vancomycin Trough 10.7 ug/mL (5.0-15.0) 02/02/20 01:54 Microbiology: Microbiology 02/01/20 11:15 Sputum, Induced/Lukens Gram Stain - Final 02/01/20 11:15 Sputum, Induced/Lukens Respiratory Culture - Preliminary Streptococcus group B Presumptive C albicans 01/31/20 11:10 Blood Culture (Wb) - Left Hand Blood Culture - Preliminary No growth in 48 hours. 01/31/20 11:20 Blood Culture (Wb) - Right Hand Blood Culture - Preliminary No growth in 48 hours. 01/31/20 12:10 Urine, Random Urine Culture - Final Pseudomonas aeroginosa 01/31/20 16:30 Mucosa - Nasopharyngeal - Final 01/31/20 21:15 Stool C. difficile DNA Amplification - Final 01/31/20 12:10 Urine Catheter - Catheter Legionella Antigen - Final 01/31/20 12:10 Urine Catheter - Catheter Streptococcus pneumoniae Antigen (M - Final Goal Trough: 15-20 mcg/mL Pharmacy Plan for Drug Dosing: Pharmacy Service will continue to monitor and adjust dosing as required. TROUGH NOT DRAWN, DRAW BEFORE NEXT DOSE Follow-Up Labs: Trough Vancomycin Labs to be done on [date and time ordered]: 02/03 @ 7207
[2020-02-04] MEDS: Heparin Injection (Vial) 5,000 UNIT/ML VIAL 5000 UNIT SC ×3 (06:35→21:23)
[2020-02-04 06:46] LABS: Bedside Glucose 112 mg/dL (70-110)
--- NOTE | 2020-02-04 07:32 | PCM.PN.HOSP ---
Patient Problems: Active and Suspected Problems (Last Reviewed 11/08/18 @ 14:53 by Claire Lewis INSTRUMENT MAKER APPRENTICE, INSTRUMENT MAKER APPRENTICE-C) Septic shock (Acute) Lactic acidosis (Acute) Acute respiratory failure with hypoxia (Acute) JANESSA (acute kidney injury) (Acute) Aspiration pneumonia (Acute) Intractable nausea and vomiting (Acute) Leukocytosis (Acute) likely due to recent high dose steroids Reason for Visit: Acute cystitis Acute hypoxic respiratory failure Aspiration pneumonia Subjective: Seen clinical condition continues to improve. She is much more awake and coherent. Diagnostic data reviewed significant for potassium of 3.0 repletion initiated Objective: GENERAL: In no distress HEENT: Atraumatic; EYES; Anicteric, Normal Conjunctiva NECK; supple, normal thyroid, RESPIRATORY: Diminished to auscultation CARDIOVASCULAR: Regular S1 S2, GI: soft, normoactive bowel sounds, : No Renal angle tenderness; EXTREMITIES: No edema, no clubbing, MUSCULOSKELETAL: no muscle waisting NEURO: no lateralizing signs. SKIN: No Rash PSYCH; not affect Vitals/I&O's: Vital Signs Temp Pulse Resp BP Pulse Ox 98.3 F 80 18 128/57 H 93 02/04/20 02:35 02/04/20 02:35 02/04/20 02:35 02/04/20 02:35 02/04/20 02:35 Oxygen Flow Rate (L/min) 2 Oxygen Delivery Method Nasal Cannula Weight: 173.9 kg Body Mass Index (BMI) 61.0 Finger Stick Blood Glucose 294 Intake and Output for Last 24 Hours 02/02/20 02/03/20 02/04/20 23:59 23:59 23:59 Intake Total 1270.00 / 1270.00 3960.00 / 3960.00 599.5 / 599.5 Output Total 1545 / 1545 1850 / 1850 225 / 225 Balance -275.00 / -275.00 2110.00 / 2110.00 374.5 / 374.5 Microbiology Past 72 Hours 02/01/20 11:15 Sputum, Induced/Lukens Gram Stain - Final 02/01/20 11:15 Sputum, Induced/Lukens Respiratory Culture - Preliminary Streptococcus group B Presumptive C albicans 01/31/20 11:10 Blood Culture (Wb) - Left Hand Blood Culture - Preliminary No growth in 48 hours. 01/31/20 11:20 Blood Culture (Wb) - Right Hand Blood Culture - Preliminary No growth in 48 hours. 01/31/20 12:10 Urine, Random Urine Culture - Final Pseudomonas aeroginosa 01/31/20 16:30 Mucosa - Nasopharyngeal - Final Laboratory Results 02/03/20 09:10: WBC 9.8, RBC 3.65 L, Hgb 10.1 L, Hct 33.1 L, MCV 90.7, MCH 27.7, MCHC 30.5 L, RDW Std Deviation 47.6 H, RDW Coeff of Ralph 14.3, Plt Count 268, MPV 10.2, Immature Gran % (Auto) 0.600, Neut % (Auto) 72.9 H, Lymph % (Auto) 17.8 L, [place] % (Auto) 5.6, Eos % (Auto) 2.6, Baso % (Auto) 0.5, Absolute Neuts (auto) 7.2, Absolute Lymphs (auto) 1.75, Nucleated RBC % 0 02/03/20 09:10: Sodium 147 H, Potassium 3.6, Chloride 117 H, Carbon Dioxide 24.0, Anion Gap 6, BUN 16, Creatinine 0.90, Estim Creat Clear Calc 66.90, Est GFR (MDRD) Af Amer 84, Est GFR (MDRD) Non-Af 69, BUN/Creatinine Ratio 17.8, Glucose 151 H, Calcium 8.5, Magnesium 1.9 02/03/20 11:14: POC Glucose 150 H 02/03/20 16:57: POC Glucose 150 H 02/03/20 22:16: POC Glucose 139 H 02/04/20 06:34: POC Glucose 112 H Current Medications Acetaminophen (Acetaminophen 650 Mg Suppository) 650 mg RECTAL Q4H PRN PRN PRN Reason: pain 1-10 or fever Albuterol Sulfate (Albuterol 2.5 Mg/3 Ml Vial.Neb.) 2.5 mg INHALATION Q2H PRN PRN PRN Reason: SOB/Wheezing Albuterol/Ipratropium (Ipratropium/Albuterol Sulfate 3 Ml Ampul.Neb) 3 ml INHALATION Q4HWA.RT MAX Last Admin: 02/03/20 20:19 Dose: 3 ml Documented by: Calamine/Phenol (Menthol/Lanolin/Calamine/Znox 113 Gm Tube) 1 applic TOPICAL 4X/DAY MAX; Protocol Last Admin: 02/03/20 22:18 Dose: 1 applicatio Documented by: Clotrimazole (Clotrimazole 1 Tube) 1 applicatio TOPICAL BID [facility]; Protocol Last Admin: 02/03/20 22:21 Dose: Not Given Documented by: Heparin Sodium (Porcine) (Heparin Injection (Vial) 5,000 Unit/Ml Vial) 5,000 unit SC Q8 [facility] Last Admin: 02/04/20 06:35 Dose: 5,000 unit Documented by: Piperacillin Sod/Tazobactam (Sod 3.375 gm/ Sodium Chloride) 50 mls @ 12.5 mls/hr IV Q8 [facility] Last Admin: 02/04/20 06:35 Dose: 12.5 mls/hr Documented by: Vancomycin IV Pharmacy to Dose (1 ea/ Sodium Chloride) 500 mls @ 250 mls/hr IV PRN PRN; Protocol PRN Reason: Rx to Dose Pantoprazole Sodium 40 mg/ (Sodium Chloride) 110 mls @ 330 mls/hr IV Q24 [facility] Last Infusion: 02/03/20 11:20 Dose: Infused Documented by: Vancomycin HCl 1,750 mg/ (Sodium Chloride) 535 mls @ 250 mls/hr IV Q12H [facility] Last Infusion: 02/04/20 05:38 Dose: Infused Documented by: Sodium Chloride () 250 mls @ 15 mls/hr IV .[id number] PRN PRN Reason: Saline Flush Last Infusion: 02/04/20 06:36 Dose: 0 mls/hr Documented by: Sodium Chloride () 250 mls @ 15 mls/hr IV .[id number] PRN PRN Reason: Additional IVPB Infusion Insulin Human Lispro (Insulin Lispro 100 Unit/Ml Insuln.Pen) 0 unit SC ACHS [facility]; Protocol Last Admin: 02/04/20 06:36 Dose: Not Given Documented by: Multi-Ingredient Cream (Mineral Oil/Petrolatum,White Jar) 1 applic TOPICAL DAILY PRN PRN; Protocol PRN Reason: DRY SKIN Nicotine (Nicotine 21 Mg Patch) 21 mg TRANSDERM. DAILY [facility] Last Admin: 02/03/20 09:27 Dose: 21 mg Documented by: Prednisone (Prednisone 10 Mg Tablet) 10 mg PO DAILY@0800 [facility] Last Admin: 02/03/20 07:59 Dose: 10 mg Documented by: Sodium Chloride (0.9% Saline Lock 10 Ml Syringe) 10 - 40 ml IV UD PRN PRN Reason: SALINE FLUSH Last Admin: 02/02/20 21:44 Dose: 10 ml Documented by: Medical Necessity - Tobacco Use Smoking Status: Current every day smoker Assessment/Plan All Active Problems (Last Reviewed 11/08/18 @ 14:53 by Claire Lewis INSTRUMENT MAKER APPRENTICE, INSTRUMENT MAKER APPRENTICE-C) Septic shock (Acute) Lactic acidosis (Acute) Acute respiratory failure with hypoxia (Acute) JANESSA (acute kidney injury) (Acute) Aspiration pneumonia (Acute) Intractable nausea and vomiting (Acute) Severe sepsis (Acute) Severe sepsis (Acute) Overdose (Acute) Unresponsive episode (Acute) Leukocytosis (Acute) Diarrhea (Resolved) History of Clostridium difficile (Resolved) Acute exacerbation of chronic obstructive pulmonary disease (COPD) (Ruled-out) SIRS with Severe sepsis due to UTI (Ruled-out) Urinary tract infection (Ruled-out) Patient is a 54-year-old lady with multiple comorbidities resident assisted living facility was found in stool and vomitus. Subsequently transferred to the emergency department as a result. Patient was found to be relatively hypoxic on admission. Imaging studies on admission demonstrated Dense airspace disease in the right middle lobe and right lower lobe; admitted to the intensive care unit for subsequent management 1. Septic shock ?Secondary to aspiration pneumonia imaging studies on admission as stated above demonstrated Dense airspace disease in the right middle lobe and right lower lobe. Patient managed per protocol with aggressive IV fluid resuscitation broad-spectrum antibiotic therapy with consultation placed to materials planning analyst Dr. Hawk -02/02/2020; Patient urine cultures positive for Pseudomonas currently on appropriate antibiotic therapy. Patient is less delirious compared to the previous day plan is for patient to be transferred from the intensive care unit to [facility] -02/03/2020; patient clinical condition continues to improve - Seen clinical condition continues to improve. She is much more awake and coherent. Diagnostic data reviewed significant for potassium of 3.0 repletion initiated 2. Acute hypoxic respiratory failure ?Secondary to aspiration pneumonia management as discussed above -02/04/2020; respiratory cultures came back positive for Streptococcus group B 3. Acute kidney injury ?Suspected to be secondary to ATN from patient sepsis kidney creatinine on admission was 1.96 started on IV fluid with subsequent monitoring of electrolytes ordered ?02/03/2020; resolved 4. Acute cystitis with Pseudomonas aeruginosa ?Patient on appropriate antibiotic therapy 5. Acute metabolic encephalopathy ?Due to combination of patient's acute kidney injury as well as her infectious etiology 6. Hypotension ?Secondary to septic shock management as discussed above 02/03/2020; resolved 7. Diabetes mellitus type II - Controlled; patient's oral hypoglycemics held. Placed on Accu-Cheks a.c. and at bedtime and covered with sliding scale insulin 8. Hypothyroidism - Patient is on levothyroxine home dose continued 9. Essential hypertension - antihypertensives on hold in view of patient presenting complaints 10. Dyslipidemia ?Patient is on simvastatin at home plan is to resume once patient level of sensorium improves 11. GERD ?Patient on PPI 12. Chronic use of steroids ?Patient did receive stress dose of Solu-Cortef 13. Rheumatoid arthritis ?Patient is on steroids as well as Plaquenil 14. Psoriatic Arthritis and Psoriasis 15. Depression with anxiety ?Patient psychotropic medications held in view of her presenting symptoms 16. Tobacco dependence ?Do plan to quitline counselor once level of sensorium improves 17. Morbid obesity with BMI of 60.6 ?Patient will benefit from referral to gastric bypass surgeon in view of patient having other comorbidities including diabetes mellitus type 2 18. Neuropathy ?From diabetic neuropathy 19. DVT Prophylaxis -Heparin TID 20. Hypokalemia ?Corrected per protocol 21. Physical deconditioning - Requested for PT OT eval and social sciences professor to assist with discharge planning Inpatient E&M: 61675 Subs Hosp L2
[2020-02-04 07:52] LABS: Absolute Lymphocyte Count 1.97 X10^3/uL (0.83-4.51); Absolute Neutrophil Count 4.5 X10^3/uL (2.0-7.7); Basophil# 0.05 X10^3/uL; Basophil% 0.6 % (0-1); Eosinophil# 0.33 X10^3/uL; Eosinophils% 4.2 % (0-5); Hematocrit 32.2 % (37-47); Hemoglobin 10.1 g/dL (12.0-15.0); Lymphocyte # 1.97 X10^3/ul (4.0); Lymphocyte % 25.3 % (19-41); Mean Corp Hgb Conc 31.4 g/dL (32-36); Mean Corpuscular Hgb 27.3 pg (27.0-32.0); Mean Platelet Vol. 9.4 fl (6.2-12.0); Monocyte# 0.84 X10^3/uL; Monocyte% 10.8 % (0-10); NRBC Flagged by Analyzer 0 % (0-5); Neutrophil # 4.54 X10^3/uL (2.7-7.7); Neutrophil % 58.2 % (47-70); Platelet Count 258 K/mm3 (150-450); RBC Distribution Width CV 13.8 % (11.6-14.6); RBC Distribution Width SD 43.6 fl (35.1-43.9); White Blood Count 7.8 K/mm3 (4.4-11.0)
[2020-02-04 08:25] LABS: Anion Gap 5 (5-15); BUN 12 mg/dL (7-18); BUN/Creat Ratio 15.9 RATIO (10-20); Calcium,Total 8.1 mg/dL (8.5-10.1); Chloride 116 mmol/L (98-107); Creatinine, Serum 0.76 mg/dL (0.55-1.02); EST Glomerular Filtration Rate 85 mL/min (>60); Est Glom Filt Rate - Afr Amer 103 mL/min (>60); Estimated Creatinine Clearance 79.22 ml/min; Glucose 120 mg/dL (74-106); Magnesium 1.8 mg/dL (1.6-2.6); Sodium Level 145 mmol/L (136-145)
[2020-02-04] MEDS: Menthol/Lanolin/Calamine/Znox 113 GM Tube 1 APPLIC TOPICAL ×4 (08:29→21:24)
[2020-02-04] MEDS: predniSONE 10 MG Tablet PO (08:30)
[2020-02-04] MEDS: Ipratropium/Albuterol Sulfate 3 ML AMPUL.NEB INHALATION ×3 (10:28→23:47)
[2020-02-04] MEDS: Pantoprazole Sodium 40 MG Tablet PO (10:49)
[2020-02-04 11:35] LABS: Bedside Glucose 163 mg/dL (70-110)
[2020-02-04] MEDS: Insulin Lispro 100 UNIT/ML INSULN.PEN SC (12:21)
[2020-02-04] MEDS: guaiFENesin Dm 10 ML UDC PO ×2 (12:22→21:23)
[2020-02-04] MEDS: Albuterol 2.5 MG/3 ML VIAL.NEB. INHALATION (13:17)
[2020-02-04] MEDS: Acetaminophen 325 MG Tablet 650 MG PO ×2 (13:51→23:21)
[2020-02-04 16:46] LABS: Bedside Glucose 142 mg/dL (70-110)
[2020-02-04 21:36] LABS: Bedside Glucose 128 mg/dL (70-110)
[2020-02-04] MEDS: hydrOXYzine PAM 25 MG Capsule 50 MG PO (23:21)
[2020-02-05] VITALS (7 sets, daily range): BP systolic 143–150; BP diastolic 63–88; PULSE 86–99; RESP 18–20; TEMP 36.4–36.9; O2SAT 96–99
[2020-02-05] MEDS: MELATONIN 10 MG TABLET PO (00:32)
[2020-02-05] MEDS: Heparin Injection (Vial) 5,000 UNIT/ML VIAL 5000 UNIT SC ×2 (05:48→13:05)
[2020-02-05] MEDS: Levothyroxine 150 MCG Tablet PO (05:48)
[2020-02-05 06:55] LABS: Bedside Glucose 131 mg/dL (70-110)
[2020-02-05] MEDS: Aspirin 81 MG TAB.CHEW PO (09:02)
[2020-02-05] MEDS: DULoxetine Hcl 60 MG Capsule PO (09:03)
[2020-02-05] MEDS: Lisinopril 10 MG Tablet PO (09:03)
[2020-02-05] MEDS: Gabapentin 800 MG Tablet 1600 MG PO (09:03)
[2020-02-05] MEDS: hydrOXYzine PAM 25 MG Capsule 50 MG PO ×2 (09:03→13:06)
[2020-02-05] MEDS: Amitriptyline 100 MG Tablet PO (09:03)
[2020-02-05] MEDS: Oxybutynin 5 MG Tablet 10 MG PO (09:03)
[2020-02-05] MEDS: Hydroxychloroquine 200 MG Tablet 300 MG PO (09:03)
[2020-02-05] MEDS: Menthol/Lanolin/Calamine/Znox 113 GM Tube 1 APPLIC TOPICAL ×2 (09:04→13:04)
[2020-02-05] MEDS: predniSONE 10 MG Tablet PO (09:04)
[2020-02-05] MEDS: Pantoprazole Sodium 40 MG Tablet PO (09:07)
--- NOTE | 2020-02-05 10:01 | CASEMGMT ---
Addendum entered by Katherin Tavares 02/05/20 11:01: YUSUF placed a call to Althea DUNCAN at [facility]. Althea states pt was extremely independent at [facility]. Pt was stand by assist for showers, pt was ambulating without a device, completely independent with ALDS, except pt did need help with getting socks on. Marquette states pt was alert and orientated, able to answers questions, able to hold conversations, and pt's only contact is pt's mother Mariam. Althea states pt would be able to return to [facility] as long as pt is no more than 1 assist, is able to ambulate 50-100 yards, pt cannot go back to [facility] with otero. SW in to speak with pt. SW introduced self and role at [facility]. Pt is alert and orientated x3, answers questions appropriately. Pt states I want to go home. Pt conforms that she came from [facility] and has been there since late December. Pt states that she was at [facility] before admitting to [facility] and doesn't want to return to [facility]. Pt states [facility] is her home now an she wants to go home. Pt states that she may need a walker as she is using one at [facility] and also stated she may new oxygen. Pt states she doesn't have a walker at home. UYSUF explained that pt is not on oxygen right now, will likely not qualify for oxygen but this worker can work on getting walker for pt. Pt states understanding. Pt denied additional needs or concerns at this time. Plan: Return to [facility] once medically cleared Katherin PICKETT, PAYAM Original Note: Social Work Note YUSUF faxed updated clinicals to [facility]. Katherin PICKETT, BARREL REPAIRER
[2020-02-05] MEDS: Ipratropium/Albuterol Sulfate 3 ML AMPUL.NEB INHALATION ×2 (10:56→14:52)
[2020-02-05] MEDS: Insulin Lispro 100 UNIT/ML INSULN.PEN SC ×2 (11:51→16:31)
--- NOTE | 2020-02-05 12:06 | DCINST_ITS ---
- Discharge Diagnoses Current Active Problems: Current Active and Chronic Problems (Last Reviewed 11/08/18 @ 14:53 by Claire Lewis FLUORESCENT LAMP REPLACER, FLUORESCENT LAMP REPLACER-C) Septic shock (Acute) Lactic acidosis (Acute) Acute respiratory failure with hypoxia (Acute) JANESSA (acute kidney injury) (Acute) Aspiration pneumonia (Acute) Bronchiectasis (Chronic) Intractable nausea and vomiting (Acute) Chronic obstructive lung disease (Chronic) Cigarette smoker (Chronic) Rheumatoid arthritis (Chronic) Leukocytosis (Acute) likely due to recent high dose steroids Chronic back pain (Chronic) Obesity, morbid, BMI 50 or higher (Chronic) Diabetes mellitus, type II (Chronic) Psoriatic arthritis (Chronic) HLD (hyperlipidemia) (Chronic) Hypothyroidism (Chronic) Anxiety and depression (Chronic) GERD (gastroesophageal reflux disease) (Chronic) HTN (hypertension) (Chronic) You will use the following diet at home:: Calorie/Carbohydrate Controlled (specify 1200, 1400, etc), Cardiac Your food should be the consistency of: Regular Your liquids should be the consistency of: Regular/Thin Discharge Activity: Return to Normal Activity, No Restrictions, May Drive Call your doctor if you observe: Fever of 101 or Higher, Inability to urinate, Shortness of breath Allergies/Adverse Reactions: Allergies fentanyl Allergy (Verified 09/12/18 15:18) Rash Iodinated Contrast Media [Iodinated Contrast Media - IV Dye] Allergy (Verified 09/12/18 15:18) Hives CAN BE PRE-MEDICATED levofloxacin [From Levaquin] Allergy (Verified 09/12/18 15:18) Rash nitrofurantoin [From Macrobid] Allergy (Verified 09/12/18 15:18) Rash Sulfa (Sulfonamide Antibiotics) Allergy (Verified 09/12/18 15:18) Itching Medications to take at Discharge Duloxetine HCl 60 mg PO DAILY 08/28/15 Levothyroxine [Synthroid] 150 mcg PO DAILY 08/28/15 Lisinopril [Zestril] 10 mg PO DAILY 06/28/16 Glimepiride [Amaryl] 4 mg PO DAILY 02/23/17 Hydroxychloroquine [Plaquenil] 300 mg PO DAILYCM 06/05/18 cycloBENZAPRine HCl [Flexeril] 10 mg PO BID 06/05/18 Acetaminophen 650 mg PO Q6H PRN PRN 01/31/20 Amitriptyline HCl [Elavil] 100 mg PO DAILY 01/31/20 Aspirin [Aspirin, Baby] 81 mg PO DAILY@0800 01/31/20 Cholecalciferol (Vitamin D3) [Vitamin D3] 50 mcg PO DAILY 01/31/20 Cranberry Fruit Extract [Cranberry] 400 mg PO DAILY 01/31/20 Cyclobenzaprine HCl 5 mg PO DINNER 01/31/20 Fluticasone/Vilanterol [Breo Ellipta 200-25 Mcg INH] 1 puff INHALATION DAILY 01/31/20 Gabapentin 1,200 mg PO DINNER 01/31/20 Gabapentin 1,600 mg PO DAILY 01/31/20 Gabapentin [Neurontin] 800 mg PO QHS 01/31/20 Hydroxyzine Pamoate [Vistaril] 50 mg PO 4X/DAY 01/31/20 Melatonin 10 mg PO QHS 01/31/20 Omeprazole [Prilosec] 20 mg PO DAILY 01/31/20 Oxybutynin [Ditropan] 10 mg PO DAILY 01/31/20 Quetiapine Fumarate 300 mg PO QHS 01/31/20 Simvastatin 40 mg PO DAILY 01/31/20 Sitagliptin Phosphate [Januvia] 100 mg PO DAILY 01/31/20 Tofacitinib Citrate [Xeljanz] 5 mg PO BID 01/31/20 Amoxicillin/Potassium Clav [Augmentin 875-125 Tablet] 1 ea PO BID #4 tab 02/05/20 Prednisone 10 mg PO DAILY #30 tab 02/05/20 The following prescriptions were given: Amoxicillin/Potassium Clav [Augmentin 875-125 Tablet] 1 ea PO BID #4 tab Transmission Status: Pending to [facility] - [id number] Prednisone 10 mg PO DAILY #30 tab Transmission Status: Pending to [facility] - [id number] Primary Care Physician: Fredy Walsh MD [Primary Care Provider] - Please follow up with your Primary Care Physician in: 1-2 weeks for hospital follow up Test Results: Test results from this visit will be discussed in further detail at your follow- up appointment, if applicable.
--- NOTE | 2020-02-05 12:10 | PCM.DC.SUM ---
Discharge Date and Diagnosis - Problem List Patient Problems: Active and Suspected Problems (Last Reviewed 11/08/18 @ 14:53 by Claire Lewis TELECOM BILLING ANALYST, TELECOM BILLING ANALYST-C) Septic shock (Acute) Lactic acidosis (Acute) Acute respiratory failure with hypoxia (Acute) JANESSA (acute kidney injury) (Acute) Aspiration pneumonia (Acute) Intractable nausea and vomiting (Acute) Leukocytosis (Acute) likely due to recent high dose steroids Date of Admission: 01/31/20 Date of Discharge: 02/05/20 - Primary Discharge Diagnosis Acute Problems: Active Problems (Last Reviewed 11/08/18 @ 14:53 by Claire Lewis TELECOM BILLING ANALYST, TELECOM BILLING ANALYST-C) Septic shock (Acute) Lactic acidosis (Acute) Acute respiratory failure with hypoxia (Acute) JANESSA (acute kidney injury) (Acute) Aspiration pneumonia (Acute) Intractable nausea and vomiting (Acute) Leukocytosis (Acute) likely due to recent high dose steroids - Secondary Discharge Diagnosis Chronic Problems: Chronic Problems (Last Reviewed 11/08/18 @ 14:53 by Claier Lewis TELECOM BILLING ANALYST, TELECOM BILLING ANALYST-C) Bronchiectasis (Chronic) Chronic obstructive lung disease (Chronic) Cigarette smoker (Chronic) Rheumatoid arthritis (Chronic) Chronic back pain (Chronic) Obesity, morbid, BMI 50 or higher (Chronic) Drug-seeking behavior (Chronic) Diabetes mellitus, type II (Chronic) Psoriatic arthritis (Chronic) HLD (hyperlipidemia) (Chronic) Hypothyroidism (Chronic) Anxiety and depression (Chronic) GERD (gastroesophageal reflux disease) (Chronic) HTN (hypertension) (Chronic) Hospital Course and Treatment [facility] Pharmacy Operations: None Procedures: None Summary of Care Provided: Ms Paz is a 54 year old F who is well known to this institution and who has multiple medical issues as noted below presented to the ED on 01/31/2020 after being found at her assisted living apt covered in stool and vomit. She told the ED physician that she had been having some diffuse abdominal pain for a couple of days. On presentation her O2 sat was 83% on RA and she had to be placed on NIV at this time to get her SpO2 >90%. She is now satting 96% on 100% FiO2 via NIV. She had no further emesis since arrival and CT of her abdomen and pelvis was unremarkable. She was unable to give much history with her respiratory status at the time. She is not O2 dependent at baseline. EKG showed sinus tach, She had been hypotensive and started on IVF boluses and now Levophed but only for a very brief period of time. She was also placed on stress dosed steroids as she is on chronic prednisone at home. Her lactic acid was 6.8 and resolved with treatment. LFT are WNL. She had JANESSA with a sCr of 1.96 that resolved to baseline with IVF. ABG showed hypoxia but no hypercapnia. She was started on Vanc and Zosyn after cultures were obtained. CT of her chest shows a marked R sided infiltrate. She was able to be weaned off of IV ABX and is now on RA. Sputum cx grew out S. agalactiae and her urine cx was + for PsAg. She received 5 days of IV abx for her UTI and was discharged with Augmentin to complete her treatment for her PNA. She was treated for a total of 10 days. She will complete a prednisone taper as well. She is in stable condition and to f/u with her PCP at d/c. D/C Time > 31' Patient Problems: Active and Suspected Problems (Last Reviewed 11/08/18 @ 14:53 by Claire Lewis TELECOM BILLING ANALYST, TELECOM BILLING ANALYST-C) Septic shock (Acute) Lactic acidosis (Acute) Acute respiratory failure with hypoxia (Acute) JANESSA (acute kidney injury) (Acute) Aspiration pneumonia (Acute) Intractable nausea and vomiting (Acute) Leukocytosis (Acute) likely due to recent high dose steroids - Physical Exam Vitals/I&O's: Vital Signs Temp Pulse Resp BP Pulse Ox 98.4 F 89 18 150/88 H 98 02/05/20 09:00 02/05/20 10:56 02/05/20 10:56 02/05/20 09:00 02/05/20 09:00 Oxygen Flow Rate (L/min) 3 Oxygen Delivery Method Room Air Weight: 171 kg Body Mass Index (BMI) 61.0 Finger Stick Blood Glucose 294 Intake and Output for Last 24 Hours 02/03/20 02/04/20 02/05/20 23:59 23:59 23:59 Intake Total 3960.00 / 3960.00 2250.5 / 2250.5 1356.75 / 1356.75 Output Total 1850 / 1850 2075 / 2075 1700 / 1700 Balance 2110.00 / 2110.00 175.5 / 175.5 -343.25 / -343.25 General: Alert, Oriented x3, Cooperative, No apparent distress, Well developed, Well nourished, - - MO WF sitting up in a chair getting ready to eat, Almazan still in place--> remove today HEENT: Atraumatic, PERRLA Oral: Moist Mucosa, No Gingival or Mucosal Lesions/ Ulcerations Neck: Supple, Trachea Midline, Thyroid Normal Size and Texture, - - short thick neck Lungs: No rhonchi, No rales, Wheezes - scattered mild but good air movement Cardiovascular: Regular rate, Regular Rhythm, Normal S1, Normal S2, No murmurs, No Ectopic Activity, No rub noted, No Gallop Abdomen: Bowel Sounds Present, Soft, Non Tender, Non-Distended, Obese, No hernias noted Extremities: No clubbing, No cyanosis, No edema, Capillary Refill Less than 3 Seconds, Peripheral Pulses Normal Skin: No rashes, No breakdown Musculoskeletal: No Tenderness to Palpation of Joints or Extremities, No Muscle Wasting Lymphatic: No Cervical, Supraclavicular, or Inguinal Adenopathy Neurological: Cranial nerves II-XII grossly intact, Neuro grossly intact Psych/Mental Status: Normal Affect, Appropriate Microbiology Past 72 Hours 02/01/20 11:15 Sputum, Induced/Lukens Gram Stain - Final 02/01/20 11:15 Sputum, Induced/Lukens Respiratory Culture - Final Streptococcus agalactiae (B) Presumptive C albicans 01/31/20 11:10 Blood Culture (Wb) - Left Hand Blood Culture - Preliminary No growth in 48 hours. 01/31/20 11:20 Blood Culture (Wb) - Right Hand Blood Culture - Preliminary No growth in 48 hours. 01/31/20 12:10 Urine, Random Urine Culture - Final Pseudomonas aeroginosa Laboratory Results 02/04/20 16:39: POC Glucose 142 H 02/04/20 21:22: POC Glucose 128 H 02/05/20 06:51: POC Glucose 131 H Current Medications Acetaminophen (Acetaminophen 325 Mg Tablet) 650 mg PO Q4H PRN PRN PRN Reason: Pain 1-10 or Fever Last Admin: 02/04/20 23:21 Dose: 650 mg Documented by: Albuterol Sulfate (Albuterol 2.5 Mg/3 Ml Vial.Neb.) 2.5 mg INHALATION Q2H PRN PRN PRN Reason: SOB/Wheezing Last Admin: 02/04/20 13:17 Dose: 2.5 mg Documented by: Albuterol/Ipratropium (Ipratropium/Albuterol Sulfate 3 Ml Ampul.Neb) 3 ml INHALATION Q4HWA.RT [facility] Last Admin: 02/05/20 10:56 Dose: 3 ml Documented by: Amitriptyline HCl (Amitriptyline 100 Mg Tablet) 100 mg PO DAILY [facility] Last Admin: 02/05/20 09:03 Dose: 100 mg Documented by: Aspirin (Aspirin 81 Mg Tab.Chew) 81 mg PO DAILY@0800 [facility] Last Admin: 02/05/20 09:02 Dose: 81 mg Documented by: Atorvastatin Calcium (Atorvastatin Calcium 20 Mg Tablet) 20 mg PO QHS [facility] Calamine/Phenol (Menthol/Lanolin/Calamine/Znox 113 Gm Tube) 1 applic TOPICAL 4X/DAY [facility]; Protocol Last Admin: 02/05/20 09:04 Dose: 1 applicatio Documented by: Clotrimazole (Clotrimazole 1 Tube) 1 applicatio TOPICAL BID [facility]; Protocol Last Admin: 02/05/20 09:04 Dose: 1 applicatio Documented by: Duloxetine HCl (Duloxetine Hcl 60 Mg Capsule) 60 mg PO DAILY [facility] Last Admin: 02/05/20 09:03 Dose: 60 mg Documented by: Gabapentin (Gabapentin 400 Mg Capsule) 800 mg PO QHS [facility] Gabapentin (Gab[facility]entin 800 Mg Tablet) [facility] Last Admin: 02/05/20 09:03 Dose: 1,600 mg Documented by: Gabapentin (Gabapentin 600 Mg Tablet) 1,200 mg PO DINNER [facility] Guaifenesin (Guaifenesin Dm 10 Ml Udc) 10 ml PO Q6H PRN PRN PRN Reason: COUGH Last Admin: 02/04/20 21:23 Dose: 10 ml Documented by: Heparin Sodium (Porcine) (Heparin Injection (Vial) 5,000 Unit/Ml Vial) 5,000 unit SC Q8 [facility] Last Admin: 02/05/20 05:48 Dose: 5,000 unit Documented by: Hydroxychloroquine Sulfate (Hydroxychloroquine 200 Mg Tablet) 300 mg PO DAILYCM [facility] Last Admin: 02/05/20 09:03 Dose: 300 mg Documented by: Hydroxyzine Pamoate (Hydroxyzine Dolly 25 Mg Capsule) 50 mg PO 4X/DAY [facility] Last Admin: 02/05/20 09:03 Dose: 50 mg Documented by: Piperacillin Sod/Tazobactam (Sod 3.375 gm/ Sodium Chloride) 50 mls @ 12.5 mls/hr IV Q8 [facility] Last Infusion: 02/05/20 09:47 Dose: Infused Documented by: Sodium Chloride () 250 mls @ 15 mls/hr IV .[id number] PRN PRN Reason: Saline Flush Last Infusion: 02/05/20 09:47 Dose: 15 mls/hr Documented by: Sodium Chloride () 250 mls @ 15 mls/hr IV .[id number] PRN PRN Reason: Additional IVPB Infusion Insulin Human Lispro (Insulin Lispro 100 Unit/Ml Insuln.Pen) 0 unit SC ACHS [facility]; Protocol Last Admin: 02/05/20 11:51 Dose: 1 units Documented by: Levothyroxine Sodium (Levothyroxine 150 Mcg Tablet) 150 mcg PO DAILY@0600 [facility] Last Admin: 02/05/20 05:48 Dose: 150 mcg Documented by: Lisinopril (Lisinopril 10 Mg Tablet) 10 mg PO DAILY [facility] Last Admin: 02/05/20 09:03 Dose: 10 mg Documented by: Melatonin (Melatonin 10 Mg Tablet) 10 mg PO QHS [facility] Last Admin: 02/05/20 00:32 Dose: 10 mg Documented by: Multi-Ingredient Cream (Mineral Oil/Petrolatum,White Jar) 1 applic TOPICAL DAILY PRN PRN; Protocol PRN Reason: DRY SKIN Nicotine (Nicotine 21 Mg Patch) 21 mg TRANSDERM. DAILY [facility] Last Admin: 02/05/20 09:05 Dose: 21 mg Documented by: Non-Formulary Medication (Tofacitinib Citrate) 5 mg PO BID [facility] Oxybutynin Chloride (Oxybutynin 5 Mg Tablet) 10 mg PO DAILY [facility] Last Admin: 02/05/20 09:03 Dose: 10 mg Documented by: Pantoprazole Sodium (Pantoprazole Sodium 40 Mg Tablet) 40 mg PO DAILY [facility] Last Admin: 02/05/20 09:07 Dose: 40 mg Documented by: Potassium Chloride (Potassium Chloride 20 Meq Tablet) [facility] Last Admin: 02/05/20 09:02 Dose: 20 meq Documented by: Prednisone (Prednisone 10 Mg Tablet) 10 mg PO DAILY@0800 [facility] Last Admin: 02/05/20 09:04 Dose: 10 mg Documented by: Quetiapine Fumarate (Quetiapine 100 Mg Tablet) 300 mg PO QHS [facility] Sodium Chloride (0.9% Saline Lock 10 Ml Syringe) 10 - 40 ml IV UD PRN PRN Reason: SALINE FLUSH Last Admin: 02/02/20 21:44 Dose: 10 ml Documented by: Discharge Activity: Return to Normal Activity, No Restrictions, May Drive Call your doctor if you observe: Fever of 101 or Higher, Inability to urinate, Shortness of breath Home Medications: Medications to take at Discharge Duloxetine HCl 60 mg PO DAILY 08/28/15 Levothyroxine [Synthroid] 150 mcg PO DAILY 08/28/15 Lisinopril [Zestril] 10 mg PO DAILY 06/28/16 Glimepiride [Amaryl] 4 mg PO DAILY 02/23/17 Hydroxychloroquine [Plaquenil] 300 mg PO DAILYCM 06/05/18 cycloBENZAPRine HCl [Flexeril] 10 mg PO BID 06/05/18 Acetaminophen 650 mg PO Q6H PRN PRN 01/31/20 Amitriptyline HCl [Elavil] 100 mg PO DAILY 01/31/20 Aspirin [Aspirin, Baby] 81 mg PO DAILY@0800 01/31/20 Cholecalciferol (Vitamin D3) [Vitamin D3] 50 mcg PO DAILY 01/31/20 Cranberry Fruit Extract [Cranberry] 400 mg PO DAILY 01/31/20 Cyclobenzaprine HCl 5 mg PO DINNER 01/31/20 Fluticasone/Vilanterol [Breo Ellipta 200-25 Mcg INH] 1 puff INHALATION DAILY 01/31/20 Gabapentin 1,200 mg PO DINNER 01/31/20 Gabapentin 1,600 mg PO DAILY 01/31/20 Gabapentin [Neurontin] 800 mg PO QHS 01/31/20 Hydroxyzine Pamoate [Vistaril] 50 mg PO 4X/DAY 01/31/20 Melatonin 10 mg PO QHS 01/31/20 Omeprazole [Prilosec] 20 mg PO DAILY 01/31/20 Oxybutynin [Ditropan] 10 mg PO DAILY 01/31/20 Quetiapine Fumarate 300 mg PO QHS 01/31/20 Simvastatin 40 mg PO DAILY 01/31/20 Sitagliptin Phosphate [Januvia] 100 mg PO DAILY 01/31/20 Tofacitinib Citrate [Xeljanz] 5 mg PO BID 01/31/20 Amoxicillin/Potassium Clav [Augmentin 875-125 Tablet] 1 ea PO BID #4 tab 02/05/20 Prednisone 10 mg PO DAILY #30 tab 02/05/20 Following Prescriptions Were Given to Patient: Amoxicillin/Potassium Clav [Augmentin 875-125 Tablet] 1 ea PO BID #4 tab Transmission Status: Received by [place] [id number] Prednisone 10 mg PO DAILY #30 tab Transmission Status: Received by [facility] [id number] Primary Care Physician: Fredy Walsh MD [Primary Care Provider] - Please follow up with your Primary Care Physician in: 1-2 weeks for hospital follow up Medical Necessity - Tobacco Use Smoking Status: Current every day smoker Meaningful Use Info Meaningful Use Diagnoses (Choose all that apply): None applicable Inpatient E&M: 26991 [facility] Hosp
--- NOTE | 2020-02-05 12:38 | CASEMGMT ---
Addendum entered by Katherin Tavares 02/05/20 13:38: YUSUF placed a call to pt's CM Justen at [facility] and updated him that pt will be discharged to [facility] today. Addendum entered by Katherin Tavares 02/05/20 13:24: Mariam also agreeable to pt returning to [facility]. Original Note: Social Work Note Pt is medically cleared for discharge back to [facility]. YUSUF faxed completed discharge paperwork to RN at [facility] including discharge summary, discharge instructions, COVID screening tool and negative COVID test. Original in [facility] folder and copy on pt's chart. YUSUF spoke with RN. Pt has antibiotic running from 1:00-5:00pm, requests transportation be arranged for 5:30pm. Pt is able to transport via wheelchair van. [facility]USUF [facility] a [facility] and arranged transportation via wheelchair van for 5:30pm. Transportation form completed, placed on [facility] folder and copy on pt's chart. YUSUF updated RN. YUSUF placed a call to [facility] and spoke [facility] RN Althea. YUSUF updated Althea on discharge and transportation time. Althea states understanding. YUSUF received call from pt's mother Mariam stating the other day she was updated by RN that pt would not be able to return to [facility] and states she spoke with Marichuy at [facility] who requests referral to be sent to them. YUSUF updated Mariam that this worker has spoken to both pt (who is alert and orientated x3) and Althea at [facility] who were all agreeable to pt returning to [facility]. Mariam states it was the first day that pt was admitted that she was updated of this. YUSUF explained that pt is more alert and orientated now and walking well enough to return to [facility]. YUSUF updated Mariam on discharge today and transportation time. Mariam states understanding. YUSUF updated pt on discharge and transportation time. RN MATEO working on getting walker for pt. Plan: Return to [facility] with [facility] transporting pt via wheelchair van at 5:30pm Katherin Tavares FIRE MANAGEMENT OFFICER, LEARNING COACH
[2020-02-05] MEDS: Acetaminophen 325 MG Tablet 650 MG PO (13:09)
[2020-02-05 13:11] LABS: Bedside Glucose 184 mg/dL (70-110)
[2020-02-05 13:33] LABS: Anion Gap 10 (5-15); BUN 9 mg/dL (7-18); BUN/Creat Ratio 8.7 RATIO (10-20); Calcium,Total 8.9 mg/dL (8.5-10.1); Chloride 114 mmol/L (98-107); Creatinine, Serum 1.04 mg/dL (0.55-1.02); EST Glomerular Filtration Rate 59 mL/min (>60); Est Glom Filt Rate - Afr Amer 71 mL/min (>60); Estimated Creatinine Clearance 57.89 ml/min; Glucose 190 mg/dL (74-106); Magnesium 1.9 mg/dL (1.6-2.6); Potassium 3.6 mmol/L (3.5-5.1); Sodium Level 145 mmol/L (136-145)
[2020-02-05] MEDS: Glycerin/Hypromellose/PEG400 15 ml Bottle 1 DRP EACH EYE (15:46)
[2020-02-05] MEDS: Gabapentin 600 MG Tablet 1200 MG PO (16:34)
[2020-02-05 16:50] LABS: Bedside Glucose 232 mg/dL (70-110)
== END 2020-02-05 17:13 | disposition home or self-care (01) | DRG 871 ==
LOC: ED 11:09 → ICU 14:09 → MS3 02-02 14:20
PROVIDERS: Internal Medicine; Admitting Provider Internal Medicine; Emergency Provider Emergency Medicine; PCP Family Medicine; Visit Provider Internal Medicine
DX: A41.9 Sepsis, unspecified organism (principal); R65.21 Severe sepsis with septic shock; J69.0 Pneumonitis due to inhalation of food and vomit; J96.01 Acute respiratory failure with hypoxia; N17.0 Acute kidney failure with tubular necrosis; G93.41 Metabolic encephalopathy; E87.2 Acidosis; Z68.44 Body mass index [BMI] 60.0-69.9, adult; J47.0 Bronchiectasis with acute lower respiratory infection; J43.2 Centrilobular emphysema; N30.00 Acute cystitis without hematuria; B96.5 Pseudomonas (aeruginosa) (mallei) (pseudomallei) as the cause of diseases classified elsewhere; E86.0 Dehydration; B35.1 Tinea unguium; L85.3 Xerosis cutis; E87.6 Hypokalemia; E11.42 Type 2 diabetes mellitus with diabetic polyneuropathy; I10 Essential (primary) hypertension; E03.9 Hypothyroidism, unspecified; E78.5 Hyperlipidemia, unspecified; L40.50 Arthropathic psoriasis, unspecified; K21.9 Gastro-esophageal reflux disease without esophagitis; F32.9 Major depressive disorder, single episode, unspecified; F41.9 Anxiety disorder, unspecified; E66.9 Obesity, unspecified; F17.200 Nicotine dependence, unspecified, uncomplicated; Z79.84 Long term (current) use of oral hypoglycemic drugs; Z79.52 Long term (current) use of systemic steroids; Z79.82 Long term (current) use of aspirin; Z79.890 Hormone replacement therapy; Z79.899 Other long term (current) drug therapy; Z98.84 Bariatric surgery status; Z86.14 Personal history of Methicillin resistant Staphylococcus aureus infection; F17.210 Nicotine dependence, cigarettes, uncomplicated; M06.9 Rheumatoid arthritis, unspecified; E66.01 Morbid (severe) obesity due to excess calories
CPT/HCPCS: 36415; 36600; 51702; 70450; 71045; 71250; 74176; 80048; 80053; 80202; 80307; 81001; 82550; 82803; 82962; 83036; 83605; 83690; 83735; 84100; 84439; 84443; 84484; 85025; 85610; 85730; 87040; 87070; 87077; 87086; 87088; 87186; 87205; 87449; 87493; 87632; 87635; 92526; 92610; 93005; 94002; 94640; 97110; 97116; 97162; 97166; 97530; 97535; 97802; 99285; 99406; J7030; J7040; J7050; J7120; A4216; U0002

== ENCOUNTER 2020-02-19 11:20 | Inpatient (IN) | payer MEDICARE, MEDICAID, SELFPAY ==
[2020-01-31 17:04] VITALS: BMI 61.0
[2020-02-19] VITALS (14 sets, daily range): BP systolic 92–130; BP diastolic 53–90; PULSE 84–116; RESP 16–26; TEMP 36.1–37.2; O2SAT 92–98; BMI 54.2
--- NOTE | 2020-02-19 12:09 | RAD_ITS ---
STUDY: X-RAY CHEST REASON FOR EXAM: Female, 54 years old. Shortness of breath. TECHNIQUE: Single frontal view of the chest. COMPARISON: 02/01/2020 FINDINGS: Right-sided opacities on the prior study have decreased with a patchy opacity at the right base medially remaining. Minimal interstitial linear opacities remain. Diffuse interstitial opacities are also present. There is no demonstrated pleural abnormality. Cardiomegaly unchanged. Normal mediastinum and tony. Normal visualized pulmonary arteries. Normal visualized aortic arch and descending thoracic aorta. Normal visualized thoracic spine. Normal visualized ribs, clavicles, and shoulders. There is no demonstrated abnormality of the visualized soft tissue structures of the upper abdomen. RAD/Chest 1 View (Portable) IMPRESSION: Cardiomegaly with diffuse interstitial prominence. Decreased density of opacities in the right lung representing improvement. No acute finding. Electronically Signed: Micah Geronimo MD at 12:52 EST , Service support ,
--- NOTE | 2020-02-19 12:09 | EKG12_ITS ---
Test Reason : ESME Blood Pressure : / mmHG Vent. Rate : 100 BPM Atrial Rate : 100 BPM P-R Int : 128 ms QRS Dur : 084 ms QT Int : 352 ms P-R-T Axes : 043 029 040 degrees QTc Int : 454 ms Normal sinus rhythm Low voltage QRS Borderline ECG Confirmed by KAYDEN GARRETT MD ([id number]), online editor MURPHY GIMENEZ ([id number]) on 02/21/2020 10:40:33 AM Referred By: Confirmed By:KAYDEN GARRETT MD
[2020-02-19 12:28] LABS: Absolute Lymphocyte Count 2.52 X10^3/uL (0.83-4.51); Absolute Neutrophil Count 9.8 X10^3/uL (2.0-7.7); Basophil# 0.05 X10^3/uL; Basophil% 0.4 % (0-1); Eosinophil# 0.05 X10^3/uL; Eosinophils% 0.4 % (0-5); Hematocrit 38.5 % (37-47); Hemoglobin 11.6 g/dL (12.0-15.0); Lymphocyte # 2.52 X10^3/ul (4.0); Lymphocyte % 17.8 % (19-41); Mean Corp Hgb Conc 30.1 g/dL (32-36); Mean Corpuscular Volume 89.7 fL (81-99); Mean Platelet Vol. 9.2 fl (6.2-12.0); Monocyte# 1.66 X10^3/uL; Monocyte% 11.7 % (0-10); NRBC Flagged by Analyzer 0 % (0-5); Neutrophil # 9.83 X10^3/uL (2.7-7.7); Neutrophil % 69.3 % (47-70); POSITIVE DIFFERENTIAL YES; Platelet Count 374 K/mm3 (150-450); RBC Distribution Width CV 15.5 % (11.6-14.6); RBC Distribution Width SD 50.8 fl (35.1-43.9); Red Blood Count 4.29 M/mm3 (4.2-5.4); White Blood Count 14.2 K/mm3 (4.4-11.0)
[2020-02-19 12:30] LABS: International Normalized Ratio 1.1; Prothrombin Time (Protime)PT. 13.3 SECONDS (11.7-14.9)
[2020-02-19 12:31] LABS: Partial Thromboplast Time 31.5 Seconds (24.1-36.2)
[2020-02-19 12:32] LABS: ALB/GLOB Ratio 0.7 RATIO (0.9-2.4); AST(SGOT) 55 U/L (15-37); Alanine Aminotransfer ALT/SGPT 36 U/L (13-56); Albumin, Serum 2.4 g/dL (3.2-5.0); Alkaline Phosphatase 49 U/L (45-117); Anion Gap 8 (5-15); BUN 22 mg/dL (7-18); BUN/Creat Ratio 7.9 RATIO (10-20); Calcium,Total 6.8 mg/dL (8.5-10.1); Chloride 112 mmol/L (98-107); Creatinine, Serum 2.79 mg/dL (0.55-1.02); EST Glomerular Filtration Rate 19 mL/min (>60); Est Glom Filt Rate - Afr Amer 23 mL/min (>60); Estimated Creatinine Clearance 24.09 ml/min; Globulin 3.5 g/dL (2.2-4.2); Glucose 107 mg/dL (74-106); Potassium 3.7 mmol/L (3.5-5.1); Protein, Total 5.9 g/dL (6.4-8.2); Sodium Level 143 mmol/L (136-145)
[2020-02-19 12:33] LABS: Differential Indicated SCAN CRITERIA MET; Lactic Acid 2.3 mmol/L (0.4-1.9)
[2020-02-19] MEDS: 0.9% Normal Saline 1,000 ML 999 ML IV ×2 (12:50→14:46)
--- NOTE | 2020-02-19 12:59 | ED.VIS.GEN ---
History of Present Illness Chief Complaint: Shortness of Breath Informant: Patient Narrative: 54-year-old female with multiple chronic medical problems presents the emergency department via EMS. She tells me she has suprapubic abdominal pain. She tells me she is recently diagnosed with a UTI and started on the medications began with a C. Review of her chart shows that she was recently in the hospital with aspiration pneumonia at that time her urine grew out Pseudomonas. Patient states that she feels very fatigued and confused at times. She tells me that she has felt slightly short of breath. - Past Medical History (1) Anxiety and depression Status: Chronic (2) Diabetes mellitus, type II Status: Chronic (3) GERD (gastroesophageal reflux disease) Status: Chronic (4) HLD (hyperlipidemia) Status: Chronic (5) HTN (hypertension) Status: Chronic (6) Hypothyroidism Status: Chronic (7) Obesity, morbid, BMI 50 or higher Status: Chronic (8) Psoriatic arthritis Status: Chronic (9) Rheumatoid arthritis Status: Chronic Past Medical History - Allergies and Home Meds Allergies/Adverse Reactions: Allergies fentanyl Allergy (Verified 09/12/18 15:18) Rash Iodinated Contrast Media [Iodinated Contrast Media - IV Dye] Allergy (Verified 09/12/18 15:18) Hives CAN BE PRE-MEDICATED levofloxacin [From Levaquin] Allergy (Verified 09/12/18 15:18) Rash nitrofurantoin [From Macrobid] Allergy (Verified 09/12/18 15:18) Rash Sulfa (Sulfonamide Antibiotics) Allergy (Verified 09/12/18 15:18) Itching Primary Care Physician: Fredy Walsh MD [Primary Care Provider] - Prior records reviewed: Yes Surgical History: cholecystectomy, gastric bypass, - - Multiple back surgeries, ?6 Lives: - - Assisted living Smoking Status: Current every day smoker - Family History Paternal Family History: Reports: Cancer - Lung CA, tobacco use. Offspring Family History: Reports: - - Obesity Maternal Family History: Reports: Stroke Review of Systems General: Reports: Malaise. Denies: Chills, Fever, Sweats Eyes: Denies: Visual changes - bilaterally, Diplopia ENT: Denies: Rhinorrhea, Sore throat Cardiovascular: Denies: Chest pain, Palpitations Respiratory: Reports: Dyspnea. Denies: Cough, Dyspnea on exertion Gastrointestinal: Reports: Abdominal pain, Nausea. Denies: Vomiting, Diarrhea, Melena, Hematochezia Genitourinary: Reports: Dysuria. Denies: Hematuria, Frequency Musculoskeletal: Denies: Back pain, Extremity Pain Skin: Denies: Rash, Wounds Neurological: Denies: Headache, Weakness, Numbness Physical Exam Vital Signs/Narrative: Vital Signs Temp Pulse Resp BP Pulse Ox 02/19/20 12:14 98.0 F 02/19/20 12:12 112 H 20 H 93/78 93 02/19/20 11:22 98.1 F 116 H 26 H 93/82 H 94 Inital Vital Signs reviewed: Yes General: Well nourished, Well developed, Obese, Unkempt, No Acute Distress Head: Normocephalic, Atraumatic Eyes: Perrl, EOMI ENT: Moist mucous membranes, No rhinorrhea Neck: Supple, Nontender Cardiovascular: Regular rate, No murmurs, Tachycardia Respiratory: No distress, Chest nontender, Rhonchi Abdomen: Soft, Nondistended, Normal bowel sounds, Tender Back: Nontender, Normal Inspection Extremities: Nontender, No edema Skin: Normal color, No rash Neurological: Oriented x3, Cranial nerves II-XII grossly intact, Normal Strength, Normal Sensation, Lethargic Diagnostic/Tx/Re-eval Clinical Impression(s) from Imaging Studies Chest X-Ray 02/19/20 12:09 IMPRESSION: Cardiomegaly with diffuse interstitial prominence. Decreased density of opacities in the right lung representing improvement. No acute finding. Electronically Signed: Micah Geronimo MD at 12:52 EST , Service support , Laboratory Last Values WBC 14.2 K/mm3 (4.4-11.0) H 02/19/20 11:45 RBC 4.29 M/mm3 (4.2-5.4) 02/19/20 11:45 Hgb 11.6 g/dL (12.0-15.0) L 02/19/20 11:45 Hct 38.5 % (37-47) 02/19/20 11:45 MCV 89.7 fL (81-99) 02/19/20 11:45 MCH 27.0 pg (27.0-32.0) 02/19/20 11:45 MCHC 30.1 g/dL (32-36) L 02/19/20 11:45 RDW Std Deviation 50.8 fl (35.1-43.9) H 02/19/20 11:45 RDW Coeff of Ralph 15.5 % (11.6-14.6) H 02/19/20 11:45 Plt Count 374 K/mm3 (150-450) 02/19/20 11:45 MPV 9.2 fl (6.2-12.0) 02/19/20 11:45 Immature Gran % (Auto) 0.400 % (0.0-0.9) 02/19/20 11:45 Neut % (Auto) 69.3 % (47-70) 02/19/20 11:45 Lymph % (Auto) 17.8 % (19-41) L 02/19/20 11:45 [place] % (Auto) 11.7 % (0-10) H 02/19/20 11:45 Eos % (Auto) 0.4 % (0-5) 02/19/20 11:45 Baso % (Auto) 0.4 % (0-1) 02/19/20 11:45 Absolute Neuts (auto) 9.8 X10^3/uL (2.0-7.7) H 02/19/20 11:45 Absolute Lymphs (auto) 2.52 X10^3/uL (0.83-4.51) 02/19/20 11:45 Nucleated RBC % 0 % (0-5) 02/19/20 11:45 Differential Comment COMMENT 02/19/20 11:45 Diff Path Review July02/19/20 11:45 PT 13.3 SECONDS (11.7-14.9) 02/19/20 11:45 INR 1.1 02/19/20 11:45 APTT 31.5 Seconds (24.1-36.2) 02/19/20 11:45 Sodium 143 mmol/L (136-145) 02/19/20 11:45 Potassium 3.7 mmol/L (3.5-5.1) 02/19/20 11:45 Chloride 112 mmol/L (98-107) H 02/19/20 11:45 Carbon Dioxide 23.0 mmol/L (21.0-32.0) 02/19/20 11:45 Anion Gap 8 (5-15) 02/19/20 11:45 BUN 22 mg/dL (7-18) H 02/19/20 11:45 Creatinine 2.79 mg/dL (0.55-1.02) H 02/19/20 11:45 Estim Creat Clear Calc 24.09 ml/min 02/19/20 11:45 Est GFR (MDRD) Af Amer 23 mL/min (>60) L 02/19/20 11:45 Est GFR (MDRD) Non-Af 19 mL/min (>60) L 02/19/20 11:45 BUN/Creatinine Ratio 7.9 RATIO (10-20) L 02/19/20 11:45 Glucose 107 mg/dL (74-106) H 02/19/20 11:45 Lactic Acid 2.3 mmol/L (0.4-1.9) H* 02/19/20 11:45 Calcium 6.8 mg/dL (8.5-10.1) L 02/19/20 11:45 Total Bilirubin 0.20 mg/dL (0.20-1.00) 02/19/20 11:45 AST 55 U/L (15-37) H 02/19/20 11:45 ALT 36 U/L (13-56) 02/19/20 11:45 Alkaline Phosphatase 49 U/L (45-117) 02/19/20 11:45 Troponin I < 0.015 ng/mL (<0.045) 02/19/20 11:45 Total Protein 5.9 g/dL (6.4-8.2) L 02/19/20 11:45 Albumin 2.4 g/dL (3.2-5.0) L 02/19/20 11:45 Globulin 3.5 g/dL (2.2-4.2) 02/19/20 11:45 Albumin/Globulin Ratio 0.7 RATIO (0.9-2.4) L 02/19/20 11:45 Urine Color Yellow (Yellow) 02/19/20 14:05 Urine Clarity Sl. Cloudy (Clear) 02/19/20 14:05 Urine pH 6.0 (5.0 - 8.0) 02/19/20 14:05 Ur Specific [place] 1.020 (1.002-1.030) 02/19/20 14:05 Urine Protein 30 mg/dl (Negative) H 02/19/20 14:05 Urine Glucose (UA) Normal mg/dl (Normal) 02/19/20 14:05 Urine Ketones Negative mg/dl (Negative) 02/19/20 14:05 Urine Occult Blood 150 /ul (Negative) H 02/19/20 14:05 Urine Nitrite Negative (Negative) 02/19/20 14:05 Urine Bilirubin Negative mg/dL (Negative) 02/19/20 14:05 Urine Urobilinogen Normal mg/dl (Normal) 02/19/20 14:05 Ur Leukocyte Esterase 500 /ul (Negative) H 02/19/20 14:05 Urine RBC 10-25 SEEN /hpf (0-5) 02/19/20 14:05 Urine WBC 25-50 SEEN /hpf (0-5) 02/19/20 14:05 Ur Squamous Epith Cells 0-5 SEEN /hpf (5-10) 02/19/20 14:05 Urine Bacteria 2+ /hpf (None Seen) 02/19/20 14:05 Urine Mucus 1+ /hpf (<or=2+) 02/19/20 14:05 - EKG Initial EKG Interpretation: Sinus Rhythm - EKG shows a sinus rhythm at a rate of 100 without concerning features of ACS. - Medical Decision Making I interpretation of the chest x-ray is improving infiltrates. Cath urine was obtained. This is consistent with infection. Will be sent for culture. White count is slightly elevated at 14. Lactic acid is 2.3. Her blood pressure is improving with fluids. Based on her body weight she would require almost 5 L of fluid boluses to comply with CMS sepsis criteria. I do not agree with this. As her blood pressure is improving we will continue to monitor her status and provide fluids as needed. Patient has been reassessed several times. She continues to have altered mental status. She appears to be perfusing her tissue normally. Because the patient grew out Pseudomonas on her last culture Zosyn was given. Our plan is admission into the hospital. Sepsis re-evaluation was performed. Her Covid test did return positive. ED Disposition - Plan for ED Patient: Disposition: Acute Care Hospital [facility] Diagnosis: JANESSA (acute kidney injury), Lactic acidosis, UTI (urinary tract infection), Severe sepsis, COVID-19 Referrals: Fredy Walsh MD [Primary Care Provider] -
--- NOTE | 2020-02-19 14:00 | ED.RN ---
dr tovar aware unable to obtain second blood cx. lab came and attempted and multiple nurses. dr reported to disregard it was fine
[2020-02-19 14:33] LABS: Color, Urine Yellow (Yellow); Glucose, Dipstick Normal (Normal); Ketone-Dipstick Negative (Negative); Leukocyte Esterase-Dipstick 500 /ul (Negative); Nitrite-Dipstick Negative (Negative); Occult Blood-Urine 150 /ul (Negative); Protein-Dipstick 30 mg/dl (Negative); Urine Bilirubin Dipstick Negative (Negative); Urine Clarity Sl. Cloudy (Clear); Urine Urobilinogen Normal (Normal)
[2020-02-19 14:40] LABS: Bacteria 2+ /hpf (None Seen); Mucous, Urine 1+ /hpf (<or=2+); Red Blood Cells-Urine 10-25 SEEN /hpf (0-5); Squamous Epithelial Cells - UA 0-5 SEEN /hpf (5-10); White Blood Cells 25-50 SEEN /hpf (0-5)
--- NOTE | 2020-02-19 15:40 | HP.PCM_ITS ---
<Nevin Gee CENTRAL OFFICE OPERATOR - Last Filed: 02/19/20 16:20> Problem List (1) Acute respiratory failure with hypoxia Status: Resolved (2) JANESSA (acute kidney injury) Status: Acute (3) Aspiration pneumonia Status: Resolved (4) UTI (urinary tract infection) Status: Acute (5) COVID-19 Status: Acute (6) Bronchiectasis Status: Chronic (7) Severe sepsis Status: Acute (8) Overdose Status: Resolved (9) Unresponsive episode Status: Resolved (10) Chronic obstructive lung disease Status: Chronic Qualifiers: COPD type: emphysema Emphysema type: centrilobular Qualified Code(s): J43.2 - Centrilobular emphysema (11) Cigarette smoker Status: Chronic (12) Rheumatoid arthritis Status: Chronic (13) Chronic back pain Status: Chronic Qualifiers: Back pain location: back pain in unspecified location Back pain laterality: unspecified Qualified Code(s): M54.9 - Dorsalgia, unspecified; G89.29 - Other chronic pain (14) Obesity, morbid, BMI 50 or higher Status: Chronic (15) Drug-seeking behavior Status: Chronic (16) Diabetes mellitus, type II Status: Chronic Qualifiers: Diabetes mellitus ad terminal makeup operator insulin use: without ad terminal makeup operator use Diabetes mellitus complication status: with neurologic complications Diabetes mellitus complication detail: with polyneuropathy Qualified Code(s): E11.42 - Type 2 diabetes mellitus with diabetic polyneuropathy (17) Psoriatic arthritis Status: Chronic (18) HLD (hyperlipidemia) Status: Chronic (19) Hypothyroidism Status: Chronic (20) Anxiety and depression Status: Chronic (21) GERD (gastroesophageal reflux disease) Status: Chronic (22) HTN (hypertension) Status: Chronic Qualifiers: Hypertension type: essential hypertension Qualified Code(s): I10 - Essential (primary) hypertension History of Present Illness Date of Admission: 02/19/20 Chief Complaint: Shortness of breath, cough. The patient is a 54 year old F who presents to the emergency room due to cough, shortness of breath. Patient states her symptoms began about 2 days ago. Patient reports associated fatigue and confusion. She also reports dysuria and frequency. She denies fever, chills. She states she is currently living in an assisted living facility. She denies exposure to sick contacts at assisted living facility. Patient requesting pain medicine during assessment. Her oxygen is currently stable on room air. Discussed with patient that her Covid test came back positive and she became tearful. She does report her taste and smell has been altered for the past few days. Patient was recently admitted 01/31/2020 where she was treated for septic shock as a result of aspiration pneumonia and Pseudomonas cystitis. Her other past medical history includes type 2 diabetes mellitus, hypothyroidism, hypertension, hyperlipidemia, GERD, rheumatoid arthritis, psoriatic arthritis and psoriasis on chronic steroids, depression, anxiety, tobacco dependence, morbid obesity. Past Medical History Past Medical History (Chronic Problems): Chronic Problems (Last Reviewed 11/08/18 @ 14:53 by Claire Lewis CENTRAL OFFICE OPERATOR, CENTRAL OFFICE OPERATOR-C) Bronchiectasis (Chronic) Chronic obstructive lung disease (Chronic) Cigarette smoker (Chronic) Rheumatoid arthritis (Chronic) Chronic back pain (Chronic) Obesity, morbid, BMI 50 or higher (Chronic) Drug-seeking behavior (Chronic) Diabetes mellitus, type II (Chronic) Psoriatic arthritis (Chronic) HLD (hyperlipidemia) (Chronic) Hypothyroidism (Chronic) Anxiety and depression (Chronic) GERD (gastroesophageal reflux disease) (Chronic) HTN (hypertension) (Chronic) Medical History: Medical History (Last Reviewed 11/08/18 @ 14:53 by Claire Lewis CENTRAL OFFICE OPERATOR, CENTRAL OFFICE OPERATOR-C) Severe sepsis (Acute) A41.9, R65.20 Chronic obstructive lung disease (Chronic) J44.9 Cigarette smoker (Chronic) F17.210 Rheumatoid arthritis (Chronic) M06.9 Chronic back pain (Chronic) M54.9, G89.29 Obesity, morbid, BMI 50 or higher (Chronic) E66.01 Drug-seeking behavior (Chronic) Z76.5 Diabetes mellitus, type II (Chronic) E11.9 Psoriatic arthritis (Chronic) L40.50 HLD (hyperlipidemia) (Chronic) E78.5 Hypothyroidism (Chronic) E03.9 Anxiety and depression (Chronic) F41.9, F32.9 GERD (gastroesophageal reflux disease) (Chronic) K21.9 HTN (hypertension) (Chronic) I10 Overdose (Resolved) T50.901A Unresponsive episode (Resolved) Abdominal pain (Inactive) R10.9 Acute hypoxemic respiratory failure (Inactive) J96.01 Community acquired pneumonia (Inactive) J18.9 Diarrhea (Inactive) R19.7 Diarrhea (Inactive) R19.7 Lower abdominal pain (Inactive) R10.30 MRSA (methicillin resistant staph aureus) culture positive (Inactive) Z22.322 Nausea and vomiting (Inactive) R11.2 Pneumonia, bacterial (Inactive) J15.9 SIRS (systemic inflammatory response syndrome) (Inactive) R65.10 Severe sepsis (Inactive) A41.9, R65.20 UTI (urinary tract infection) (Inactive) N39.0 UTI (urinary tract infection) (Inactive) N39.0 UTI (urinary tract infection) (Inactive) N39.0 Allergies fentanyl Allergy (Verified 09/12/18 15:18) Rash Iodinated Contrast Media [Iodinated Contrast Media - IV Dye] Allergy (Verified 09/12/18 15:18) Hives CAN BE PRE-MEDICATED levofloxacin [From Levaquin] Allergy (Verified 09/12/18 15:18) Rash nitrofurantoin [From Macrobid] Allergy (Verified 09/12/18 15:18) Rash Sulfa (Sulfonamide Antibiotics) Allergy (Verified 09/12/18 15:18) Itching Home Medications: Ambulatory Orders Medication Instructions Recorded Duloxetine HCl 60 mg PO DAILY 08/28/15 Levothyroxine [Synthroid] 150 mcg PO DAILY 08/28/15 Lisinopril [Zestril] 10 mg PO DAILY 06/28/16 Glimepiride [Amaryl] 4 mg PO DAILY 02/23/17 Hydroxychloroquine [Plaquenil] 300 mg PO DAILYCM 06/05/18 cycloBENZAPRine HCl [Flexeril] 10 mg PO BID 06/05/18 Amitriptyline HCl [Elavil] 100 mg PO DAILY 01/31/20 Aspirin [Aspirin, Baby] 81 mg PO DAILY@0800 01/31/20 Cholecalciferol (Vitamin D3) 50 mcg PO DAILY 01/31/20 [Vitamin D3] Cranberry Fruit Extract [Cranberry] 400 mg PO DAILY 01/31/20 Cyclobenzaprine HCl 5 mg PO DINNER 01/31/20 Fluticasone/Vilanterol [Breo 1 puff INHALATION DAILY 01/31/20 Ellipta 200-25 Mcg INH] Gabapentin 1,600 mg PO DAILY 01/31/20 Gabapentin 800 mg PO BID 01/31/20 Hydroxyzine Pamoate [Vistaril] 50 mg PO 4X/DAY 01/31/20 Melatonin 10 mg PO QHS 01/31/20 Omeprazole [Prilosec] 20 mg PO DAILY 01/31/20 Quetiapine Fumarate 300 mg PO QHS 01/31/20 Simvastatin 40 mg PO QHS 01/31/20 Sitagliptin Phosphate [Januvia] 100 mg PO DAILY 01/31/20 Tofacitinib Citrate [Xeljanz] 5 mg PO BID 01/31/20 Acetaminophen [Tylenol Extra 1,000 mg PO TID 02/19/20 Strength] Furosemide [Lasix] 20 mg PO DAILY 02/19/20 Gabapentin [Neurontin] 400 mg PO DINNER 02/19/20 Linezolid [Zyvox] 600 mg PO Q12H 02/19/20 Potassium Chloride [Klor-Con M10] 10 meq PO DAILY 02/19/20 Surgical History: cholecystectomy, gastric bypass, - - Multiple back surgeries, ?6 Psychiatric History: Anxiety, Depression INTERVENTION ANALYST History: No pertinent INTERVENTION ANALYST history Lives: - - Assisted living Smoking Status: Current every day smoker Tobacco Use: Cigarettes Drugs: None - *Family History Paternal History Items: Cancer - Lung CA, tobacco use. Offspring History Items: - - Obesity Maternal History Items: Stroke Review of Systems Constitutional: Reports: Malaise, Weakness. Denies: Chills, Fever HEENT: Reports: - - Change in taste/smell. Denies: Head Aches, Sinus Congestion, Sinus Drainage Cardiovascular: Denies: Chest Pain, Edema, Palpitations, Syncope Respiratory: Reports: Cough, Shortness of Breath Gastrointestinal: Reports: - - Suprapubic tenderness. Denies: Constipation, Diarrhea, Nausea, Vomiting Genitourinary: Reports: Dysuria, Urgency Musculoskeletal: Denies: Joint Pain, Joint Tenderness Skin: Reports: - - Chronic psoriasis. Denies: Rash, Wounds Neurological: Denies: Numbness, Tingling, Focal weakness Psychiatric: Reports: Anxiety, Depression Hematologic/ Lymphatic: Denies: Easy Bruising, Easy Bleeding VTE Information - Inpt Only VTE Present on Admission: No VTE Mechan Device Prophylaxis: None VTE Pharm Prophylaxis ordered?: Yes Patient Problems: Active and Suspected Problems (Last Reviewed 11/08/18 @ 14:53 by Claire Lewis CENTRAL OFFICE OPERATOR, CENTRAL OFFICE OPERATOR-C) JANESSA (acute kidney injury) (Acute) UTI (urinary tract infection) (Acute) COVID-19 (Acute) Lactic acidosis (Acute) Severe sepsis (Acute) - Physical Exam Vitals/I&O's: Vital Signs Temp Pulse Resp BP Pulse Ox 98.3 F 95 20 H 101/68 93 02/19/20 14:09 02/19/20 14:09 02/19/20 14:09 02/19/20 14:09 02/19/20 14:09 Oxygen Flow Rate (L/min) 2 Oxygen Delivery Method Room Air Weight: 367 lb 8.169 oz Body Mass Index (BMI) 54.2 Finger Stick Blood Glucose 294 General: Alert, Oriented x3, Cooperative HEENT: Atraumatic, PERRLA, EOMI, Normocephalic Oral: Dry Mucosa Neck: Supple, No JVD, Negative Carotid Bruits Lungs: Clear to auscultation, Diminished Cardiovascular: Regular rate, No murmurs Abdomen: Bowel Sounds Present, Soft, Non Tender, Non-Distended, Obese Extremities: No clubbing, No cyanosis, No edema, Capillary Refill Less than 3 Seconds Skin: No rashes, No breakdown Musculoskeletal: No Tenderness to Palpation of Joints or Extremities Neurological: Cranial nerves II-XII grossly intact, Neuro grossly intact Psych/Mental Status: Impulsive, Restless Laboratory Results 02/19/20 11:45: WBC 14.2 H, RBC 4.29, Hgb 11.6 L, Hct 38.5, MCV 89.7, MCH 27.0, MCHC 30.1 L, RDW Std Deviation 50.8 H, RDW Coeff of Ralph 15.5 H, Plt Count 374, MPV 9.2, Immature Gran % (Auto) 0.400, Neut % (Auto) 69.3, Lymph % (Auto) 17.8 L , [place] % (Auto) 11.7 H, Eos % (Auto) 0.4, Baso % (Auto) 0.4, Absolute Neuts (auto) 9.8 H, Absolute Lymphs (auto) 2.52, Nucleated RBC % 0, Differential Comment COMMENT, Diff Path Review July02/19/20 11:45: PT 13.3, INR 1.1, APTT 31.5 02/19/20 11:45: Sodium 143, Potassium 3.7, Chloride 112 H, Carbon Dioxide 23.0, Anion Gap 8, BUN 22 H, Creatinine 2.79 H, Estim Creat Clear Calc 24.09, Est GFR (MDRD) Af Amer 23 L, Est GFR (MDRD) Non-Af 19 L, BUN/Creatinine Ratio 7.9 L, Glucose 107 H, Calcium 6.8 L, Total Bilirubin 0.20, AST 55 H, ALT 36, Alkaline Phosphatase 49, Troponin I < 0.015, Total Protein 5.9 L, Albumin 2.4 L, Globulin 3.5, Albumin/Globulin Ratio 0.7 L 02/19/20 11:45: Lactic Acid 2.3 H* 02/19/20 12:20: COVID-19 (AMANDA) Detected 02/19/20 14:05: Urine Color Yellow, Urine Clarity Sl. Cloudy, Urine pH 6.0, Ur S pecific [place] 1.020, Urine Protein 30 H, Urine Glucose (UA) Normal, Urine Ketones Negative, Urine Occult Blood 150 H, Urine Nitrite Negative, Urine Bilirubin Negative, Urine Urobilinogen Normal, Ur Leukocyte Esterase 500 H, Urine RBC 10-25 SEEN, Urine WBC 25-50 SEEN, Ur Squamous Epith Cells 0-5 SEEN, Urine Bacteria 2+, Urine Mucus 1+ Current Medications Sodium Chloride () 1,000 mls @ 250 mls/hr IV .Q4H [facility] Assessment/Plan All Active Problems (Last Reviewed 11/08/18 @ 14:53 by Claire Lewis CENTRAL OFFICE OPERATOR, CENTRAL OFFICE OPERATOR- C) JANESSA (acute kidney injury) (Acute) UTI (urinary tract infection) (Acute) COVID-19 (Acute) Lactic acidosis (Acute) Severe sepsis (Acute) Acute respiratory failure with hypoxia (Resolved) Aspiration pneumonia (Resolved) Overdose (Resolved) Unresponsive episode (Resolved) Diarrhea (Resolved) History of Clostridium difficile (Resolved) Acute exacerbation of chronic obstructive pulmonary disease (COPD) (Ruled-out) SIRS with Severe sepsis due to UTI (Ruled-out) Urinary tract infection (Ruled-out) 1. Severe sepsis secondary to UTI and COVID-19-UA positive. Recent urine culture grew Pseudomonas. IV Zosyn. Repeat urine and blood cultures pending. Oxygen stable on room air. Supportive treatment for COVID-19 at this time. Monitor O2. 2. Acute kidney injury-IV fluids, trend BMP. 3. Type 2 diabetes mellitus-hold oral regimen. Accu-Cheks with sliding scale insulin. 4. Hypertension-stable, continue lisinopril 5. Hyperlipidemia-continue statin. 6. Hypothyroidism-continue Synthroid. 7. GERD-continue PPI. 8. Rheumatoid arthritis/psoriatic arthritis and psoriasis-on Xeljanz, Plaquenil. 9. Depression/anxiety-on amitriptyline, duloxetine, quetiapine, as needed Vistaril. 10. Tobacco dependence- encouraged cessation. 11. Morbid obesity- encouraged diet and lifestyle modifications. DVT prophylaxis-Heparin sc This patient was seen by eNvin Gee NP-C under the supervision of Dr. Herman. <Declan Herman F - Last Filed: 02/19/20 18:18> History of Present Illness The patient is a 54 year old F [] Past Medical History Medical History: Medical History (Last Reviewed 11/08/18 @ 14:53 by Claire Lewis NP, CENTRAL OFFICE OPERATOR-C) Severe sepsis (Acute) A41.9, R65.20 Chronic obstructive lung disease (Chronic) J44.9 Cigarette smoker (Chronic) F17.210 Rheumatoid arthritis (Chronic) M06.9 Chronic back pain (Chronic) M54.9, G89.29 Obesity, morbid, BMI 50 or higher (Chronic) E66.01 Drug-seeking behavior (Chronic) Z76.5 Diabetes mellitus, type II (Chronic) E11.9 Psoriatic arthritis (Chronic) L40.50 HLD (hyperlipidemia) (Chronic) E78.5 Hypothyroidism (Chronic) E03.9 Anxiety and depression (Chronic) F41.9, F32.9 GERD (gastroesophageal reflux disease) (Chronic) K21.9 HTN (hypertension) (Chronic) I10 Overdose (Resolved) T50.901A Unresponsive episode (Resolved) Abdominal pain (Inactive) R10.9 Acute hypoxemic respiratory failure (Inactive) J96.01 Community acquired pneumonia (Inactive) J18.9 Diarrhea (Inactive) R19.7 Diarrhea (Inactive) R19.7 Lower abdominal pain (Inactive) R10.30 MRSA (methicillin resistant staph aureus) culture positive (Inactive) Z22.322 Nausea and vomiting (Inactive) R11.2 Pneumonia, bacterial (Inactive) J15.9 SIRS (systemic inflammatory response syndrome) (Inactive) R65.10 Severe sepsis (Inactive) A41.9, R65.20 UTI (urinary tract infection) (Inactive) N39.0 UTI (urinary tract infection) (Inactive) N39.0 UTI (urinary tract infection) (Inactive) N39.0 Allergies fentanyl Allergy (Verified 09/12/18 15:18) Rash Iodinated Contrast Media [Iodinated Contrast Media - IV Dye] Allergy (Verified 09/12/18 15:18) Hives CAN BE PRE-MEDICATED levofloxacin [From Levaquin] Allergy (Verified 09/12/18 15:18) Rash nitrofurantoin [From Macrobid] Allergy (Verified 09/12/18 15:18) Rash Sulfa (Sulfonamide Antibiotics) Allergy (Verified 09/12/18 15:18) Itching - Physical Exam Vitals/I&O's: Vital Signs Temp Pulse Resp BP Pulse Ox 97.0 F L 92 20 H 110/53 L 97 02/19/20 17:40 02/19/20 17:40 02/19/20 17:40 02/19/20 17:40 02/19/20 17:40 Oxygen Flow Rate (L/min) 2 Oxygen Delivery Method Nasal Cannula Weight: 366 lb 13.587 oz Body Mass Index (BMI) 54.2 Finger Stick Blood Glucose 294 Intake and Output for Last 24 Hours 02/17/20 02/18/20 02/19/20 23:59 23:59 23:59 Intake Total 1100 / 1100 Balance 1100 / 1100 Laboratory Results 02/19/20 11:45: WBC 14.2 H, RBC 4.29, Hgb 11.6 L, Hct 38.5, MCV 89.7, MCH 27.0, MCHC 30.1 L, RDW Std Deviation 50.8 H, RDW Coeff of Ralph 15.5 H, Plt Count 374, MPV 9.2, Immature Gran % (Auto) 0.400, Neut % (Auto) 69.3, Lymph % (Auto) 17.8 L , [place] % (Auto) 11.7 H, Eos % (Auto) 0.4, Baso % (Auto) 0.4, Absolute Neuts (auto) 9.8 H, Absolute Lymphs (auto) 2.52, Nucleated RBC % 0, Differential Comment COMMENT, Diff Path Review July02/19/20 11:45: PT 13.3, INR 1.1, APTT 31.5 02/19/20 11:45: Sodium 143, Potassium 3.7, Chloride 112 H, Carbon Dioxide 23.0, Anion Gap 8, BUN 22 H, Creatinine 2.79 H, Estim Creat Clear Calc 24.09, Est GFR (MDRD) Af Amer 23 L, Est GFR (MDRD) Non-Af 19 L, BUN/Creatinine Ratio 7.9 L, Glucose 107 H, Calcium 6.8 L, Total Bilirubin 0.20, AST 55 H, ALT 36, Alkaline Phosphatase 49, Troponin I < 0.015, Total Protein 5.9 L, Albumin 2.4 L, Globulin 3.5, Albumin/Globulin Ratio 0.7 L 02/19/20 11:45: Lactic Acid 2.3 H* 02/19/20 12:20: COVID-19 (AMANDA) Detected 02/19/20 14:05: Urine Color Yellow, Urine Clarity Sl. Cloudy, Urine pH 6.0, Ur Specific [place] 1.020, Urine Protein 30 H, Urine Glucose (UA) Normal, Urine Ketones Negative, Urine Occult Blood 150 H, Urine Nitrite Negative, Urine Bilirubin Negative, Urine Urobilinogen Normal, Ur Leukocyte Esterase 500 H, Urine RBC 10-25 SEEN, Urine WBC 25-50 SEEN, Ur Squamous Epith Cells 0-5 SEEN, Urine Bacteria 2+, Urine Mucus 1+ Current Medications Heparin Sodium (Porcine) (Heparin Injection (Vial) 5,000 Unit/Ml Vial) 5,000 unit SC Q8 [facility] Sodium Chloride () 1,000 mls @ 100 mls/hr IV .Q10H [facility] Last Admin: 02/19/20 17:35 Dose: 100 mls/hr Documented by: Piperacillin Sod/Tazobactam (Sod 3.375 gm/ Sodium Chloride) 50 mls @ 12.5 mls/hr IV Q8 [facility] Prednisone (Prednisone 20 Mg Tablet) 20 mg PO DAILY@0800 [facility] Sodium Chloride (0.9% Saline Lock 10 Ml Syringe) 10 - 40 ml IV UD PRN PRN Reason: SALINE FLUSH Addendum: Dr. Herman I personally examined the patient and reviewed the chart. I agree with the above. 54-year-old female who was recently discharged from the hospital with aspiration pneumonia and a UTI presents back to the hospital with a cough and shortness of breath. Symptoms started about 2 days ago, and in the ER her chest x-ray was improving but her Covid test did come back positive. She is on room air at the moment at 93% and she is already on steroids for her RA, she does require oxygen could change to Decadron. Her UA is dirty and therefore we will start her on Zosyn because her previous culture was pansensitive Pseudomonas and will reculture her. She is supposed to be on chronic steroids, prednisone 10 mg daily therefore given her acute illness we will just increase this to 20 a day until she is feeling better. Inpatient E&M: [id number] Init Hosp L3
[2020-02-19 16:14] LABS: Reflex Lactate? Y
[2020-02-19] MEDS: 0.9% Normal Saline 1,000 ML 100 ML IV (17:35)
[2020-02-19 18:50] LABS: Lactic Acid 1.8 mmol/L (0.4-1.9)
[2020-02-19] MEDS: Atorvastatin Calcium 20 MG Tablet PO (20:58)
[2020-02-19] MEDS: QUEtiapine 100 MG Tablet 300 MG PO (20:58)
[2020-02-19] MEDS: Heparin Injection (Vial) 5,000 UNIT/ML VIAL 5000 UNIT SC (20:58)
[2020-02-19] MEDS: Menthol/Lanolin/Calamine/Znox 113 GM Tube 1 APPLIC TOPICAL (20:58)
[2020-02-19] MEDS: MELATONIN 10 MG TABLET PO (20:59)
[2020-02-19] MEDS: cycloBENZAPRine HCl 10 MG Tablet PO (20:59)
[2020-02-19] MEDS: hydrOXYzine PAM 25 MG Capsule 50 MG PO (20:59)
[2020-02-19] MEDS: 0.9% Saline Lock 10 ML Syringe IV (21:01)
[2020-02-19 21:16] LABS: Bedside Glucose 87 mg/dL (70-110)
[2020-02-20] VITALS (9 sets, daily range): BP systolic 93–119; BP diastolic 33–75; PULSE 85–100; RESP 14–20; TEMP 36.4–37.5; O2SAT 92–96
[2020-02-20] MEDS: Heparin Injection (Vial) 5,000 UNIT/ML VIAL 5000 UNIT SC ×3 (02:34→17:05)
[2020-02-20 05:36] LABS: Bedside Glucose 74 mg/dL (70-110)
[2020-02-20] MEDS: 0.9% Normal Saline 1,000 ML 100 ML IV ×2 (05:37→16:31)
[2020-02-20 08:03] LABS: Absolute Lymphocyte Count 1.97 X10^3/uL (0.83-4.51); Absolute Neutrophil Count 9.2 X10^3/uL (2.0-7.7); Basophil# 0.03 X10^3/uL; Basophil% 0.2 % (0-1); Eosinophil# 0.08 X10^3/uL; Eosinophils% 0.7 % (0-5); Hematocrit 35.2 % (37-47); Hemoglobin 10.3 g/dL (12.0-15.0); Lymphocyte # 1.97 X10^3/ul (4.0); Lymphocyte % 16.2 % (19-41); Mean Corp Hgb Conc 29.3 g/dL (32-36); Mean Corpuscular Hgb 26.5 pg (27.0-32.0); Mean Corpuscular Volume 90.7 fL (81-99); Mean Platelet Vol. 9.5 fl (6.2-12.0); Monocyte# 0.89 X10^3/uL; Monocyte% 7.3 % (0-10); NRBC Flagged by Analyzer 0 % (0-5); Neutrophil # 9.15 X10^3/uL (2.7-7.7); Neutrophil % 75.2 % (47-70); Platelet Count 332 K/mm3 (150-450); RBC Distribution Width CV 15.8 % (11.6-14.6); RBC Distribution Width SD 51.5 fl (35.1-43.9); Red Blood Count 3.88 M/mm3 (4.2-5.4); White Blood Count 12.2 K/mm3 (4.4-11.0)
[2020-02-20 08:25] LABS: Anion Gap 7 (5-15); BUN 25 mg/dL (7-18); Calcium,Total 7.6 mg/dL (8.5-10.1); Chloride 109 mmol/L (98-107); Creatinine, Serum 1.92 mg/dL (0.55-1.02); EST Glomerular Filtration Rate 29 mL/min (>60); Est Glom Filt Rate - Afr Amer 35 mL/min (>60); Estimated Creatinine Clearance 35.01 ml/min; Glucose 55 mg/dL (74-106); Sodium Level 142 mmol/L (136-145)
[2020-02-20] MEDS: Menthol/Lanolin/Calamine/Znox 113 GM Tube 1 APPLIC TOPICAL ×3 (08:57→17:06)
[2020-02-20] MEDS: Aspirin 81 MG TAB.CHEW PO (08:58)
[2020-02-20] MEDS: hydrOXYzine PAM 25 MG Capsule 50 MG PO ×4 (08:58→21:37)
[2020-02-20] MEDS: cycloBENZAPRine HCl 10 MG Tablet PO ×2 (08:58→21:37)
[2020-02-20] MEDS: predniSONE 20 MG Tablet PO (08:58)
--- NOTE | 2020-02-20 09:06 | CASEMGMT ---
YUSUF called [facility] and spoke with Althea, one of the RNs. SW let her know patient did test positive for COVID. She said she did not know and appreciates the call. She said they have had several other people come up positive including 3 staff members. She said patient can return as long as she does not need super close monitoring as they are short staffed due to COVID. She thanked YUSUF for the update. Kaitlin ZUNIGA MSW
[2020-02-20] MEDS: Pantoprazole Sodium 20 MG Tablet PO (09:10)
[2020-02-20] MEDS: DULoxetine Hcl 60 MG Capsule PO (09:10)
[2020-02-20] MEDS: Amitriptyline 100 MG Tablet PO (09:11)
[2020-02-20] MEDS: Levothyroxine 150 MCG Tablet PO (09:11)
[2020-02-20] MEDS: Hydroxychloroquine 200 MG Tablet 300 MG PO (09:11)
--- NOTE | 2020-02-20 11:13 | CASEMGMT ---
Readmission chart review: Pt was initially admitted 01/30-02/05/2020 for Septic shock secondary to aspiration pna. Pt had been in [facility] for the last 10 months and now is at [facility]. Pt does have Direction home set up but they have been unable to complete F2F with pt d/t COVID. Pt has been at [facility] since 01/18/2020 and this is her 2nd admission at this time. Pt admitted 02/19/2020 for Sepsis from UTI and pt has hx of frequent UTI's as well as frequent ED visits/admissions. Pt is also positive for COVID at this time and per facility, so are some staff members. Pt is currently on room air at this time. SW to follow d/t AL pt and direction home involved. CM to follow for any further discharge planning/needs. Moriah DUNCAN CM
[2020-02-20 11:35] LABS: Bedside Glucose 92 mg/dL (70-110)
--- NOTE | 2020-02-20 12:05 | CASEMGMT ---
YUSUF received a call from [facility] from [facility] ([phone]). He said he is patient's patient case manager. He asked about a discharge plan. YUSUF told him that a d/c plan has not been made yet. We are waiting on therapy to see her. YUSUF told him YUSUF will let him know when there is a d/c plan in place. Kaitlin PICKETT
--- NOTE | 2020-02-20 14:01 | PN_ITS ---
<Nevin Gee DATABASE MODELER - Last Filed: 02/20/20 14:07> Patient Problems: Active and Suspected Problems (Last Reviewed 11/08/18 @ 14:53 by Claire cordoba DATABASE MODELER, DATABASE MODELER-C) JANESSA (acute kidney injury) (Acute) UTI (urinary tract infection) (Acute) COVID-19 (Acute) Lactic acidosis (Acute) Severe sepsis (Acute) Subjective: Patient seen and examined. Multiple generalized complaints including back pain, and general aching and weakness. States she feels she may need to go to [facility] for weakness. Denies fever, chills. Denies significant shortness of breath. - Physical Exam Vitals/I&O's: Vital Signs Temp Pulse Resp BP Pulse Ox 97.9 F 96 18 107/33 L 96 02/20/20 09:02 02/20/20 09:02 02/20/20 09:02 02/20/20 09:02 02/20/20 09:02 Oxygen Flow Rate (L/min) 2 Oxygen Delivery Method Room Air Weight: 366 lb 13.587 oz Body Mass Index (BMI) 54.2 Finger Stick Blood Glucose 294 Intake and Output for Last 24 Hours 02/18/20 02/19/20 02/20/20 23:59 23:59 23:59 Intake Total 2451.67 / 2571.67 1708.33 / 1708.33 Balance 2451.67 / 2571.67 1708.33 / 1708.33 General: Alert, Oriented x3, Cooperative HEENT: Atraumatic, PERRLA, EOMI, Normocephalic Neck: Supple, No JVD, Negative Carotid Bruits Lungs: Clear to auscultation, Diminished Cardiovascular: Regular rate, No murmurs Abdomen: Bowel Sounds Present, Soft, Non Tender, Non-Distended, Obese Extremities: No clubbing, No cyanosis, No edema, Capillary Refill Less than 3 Seconds Skin: No rashes, No breakdown Musculoskeletal: No Tenderness to Palpation of Joints or Extremities Neurological: Cranial nerves II-XII grossly intact, Neuro grossly intact Psych/Mental Status: Impulsive, Restless Microbiology Past 72 Hours 02/19/20 14:05 Urine, Random Urine Culture - Preliminary GNR Poss Pseudomonas sp Laboratory Results 02/19/20 12:20: COVID-19 (AMANDA) Detected 02/19/20 14:05: Urine Color Yellow, Urine Clarity Sl. Cloudy, Urine pH 6.0, Ur Specific [place] 1.020, Urine Protein 30 H, Urine Glucose (UA) Normal, Urine Ketones Negative, Urine Occult Blood 150 H, Urine Nitrite Negative, Urine Bilirubin Negative, Urine Urobilinogen Normal, Ur Leukocyte Esterase 500 H, Urine RBC 10-25 SEEN, Urine WBC 25-50 SEEN, Ur Squamous Epith Cells 0-5 SEEN, Urine Bacteria 2+, Urine Mucus 1+ 02/19/20 17:02: Lactic Acid 1.8 02/19/20 21:00: POC Glucose 87 02/20/20 05:27: POC Glucose 74 02/20/20 06:30: WBC 12.2 H, RBC 3.88 L, Hgb 10.3 L, Hct 35.2 L, MCV 90.7, MCH 26.5 L, MCHC 29.3 L, RDW Std Deviation 51.5 H, RDW Coeff of Ralph 15.8 H, Plt Count 332, MPV 9.5, Immature Gran % (Auto) 0.400, Neut % (Auto) 75.2 H, Lymph % (Auto) 16.2 L, [place] % (Auto) 7.3, Eos % (Auto) 0.7, Baso % (Auto) 0.2, Absolute Neuts (auto) 9.2 H, Absolute Lymphs (auto) 1.97, Nucleated RBC % 0 02/20/20 06:30: Sodium 142, Potassium 4.0, Chloride 109 H, Carbon Dioxide 26.0, Anion Gap 7, BUN 25 H, Creatinine 1.92 H, Estim Creat Clear Calc 35.01, Est GFR (MDRD) Af Amer 35 L, Est GFR (MDRD) Non-Af 29 L, BUN/Creatinine Ratio 13.0, Glucose 55 L, Calcium 7.6 L 02/20/20 11:08: POC Glucose 92 Current Medications Albuterol Sulfate (Albuterol 2.5 Mg/3 Ml Vial.Neb.) 2.5 mg INHALATION Q6HWA.RT [facility] Amitriptyline HCl (Amitriptyline 100 Mg Tablet) 100 mg PO DAILY [facility] Last Admin: 02/20/20 09:11 Dose: 100 mg Documented by: Aspirin (Aspirin 81 Mg Tab.Chew) 81 mg PO DAILY [facility] Last Admin: 02/20/20 08:58 Dose: 81 mg Documented by: Atorvastatin Calcium (Atorvastatin Calcium 20 Mg Tablet) 20 mg PO QHS [facility] Last Admin: 02/19/20 20:58 Dose: 20 mg Documented by: Calamine/Phenol (Menthol/Lanolin/Calamine/Znox 113 Gm Tube) 1 applic TOPICAL 4X/DAY [facility]; Protocol Last Admin: 02/20/20 13:11 Dose: 1 dose Documented by: Cyclobenzaprine HCl (Cyclobenzaprine Hcl 5 Mg Tablet) 5 mg PO DINNER [facility] Cyclobenzaprine HCl (Cyclobenzaprine Hcl 10 Mg Tablet) 10 mg PO BID [facility] Last Admin: 02/20/20 08:58 Dose: 10 mg Documented by: Dextrose (Dextrose 50%-Water 25 Gm/50 Ml Disp.Syrin) 0 gm IV X1 PRN; Protocol PRN Reason: Hypoglycemia Duloxetine HCl (Duloxetine Hcl 60 Mg Capsule) 60 mg PO DAILY [facility] Last Admin: 02/20/20 09:10 Dose: 60 mg Documented by: Glucagon (Glucagon 1 Mg/Ml Syringe) 1 mg IM .X1 PRN PRN Reason: Hypoglycemia Heparin Sodium (Porcine) (Heparin Injection (Vial) 5,000 Unit/Ml Vial) 5,000 unit SC 0200,1000,1800 [facility] Last Admin: 02/20/20 08:58 Dose: 5,000 unit Documented by: Hydroxychloroquine Sulfate (Hydroxychloroquine 200 Mg Tablet) 300 mg PO DAILY [facility] Last Admin: 02/20/20 09:11 Dose: 300 mg Documented by: Hydroxyzine Pamoate (Hydroxyzine Dolly 25 Mg Capsule) 50 mg PO 4X/DAY [facility] Last Admin: 02/20/20 13:09 Dose: 50 mg Documented by: Sodium Chloride () 1,000 mls @ 100 mls/hr IV .Q10H [facility] Last Admin: 02/20/20 05:37 Dose: 100 mls/hr Documented by: Piperacillin Sod/Tazobactam (Sod 3.375 gm/ Sodium Chloride) 50 mls @ 12.5 mls/hr IV Q8 [facility] Last Admin: 02/20/20 13:09 Dose: 12.5 mls/hr Documented by: Insulin Human Lispro (Insulin Lispro 100 Unit/Ml Insuln.Pen) 0 unit SC ACHS [facility]; Protocol Last Admin: 02/20/20 11:46 Dose: Not Given Documented by: Levothyroxine Sodium (Levothyroxine 150 Mcg Tablet) 150 mcg PO DAILY [facility] Last Admin: 02/20/20 09:11 Dose: 150 mcg Documented by: Melatonin (Melatonin 10 Mg Tablet) 10 mg PO QHS [facility] Last Admin: 02/19/20 20:59 Dose: 10 mg Documented by: Pantoprazole Sodium (Pantoprazole Sodium 20 Mg Tablet) 20 mg PO DAILY [facility] Last Admin: 02/20/20 09:10 Dose: 20 mg Documented by: Prednisone (Prednisone 20 Mg Tablet) 20 mg PO DAILY [facility] Last Admin: 02/20/20 08:58 Dose: 20 mg Documented by: Quetiapine Fumarate (Quetiapine 100 Mg Tablet) 300 mg PO QHS [facility] Last Admin: 02/19/20 20:58 Dose: 300 mg Documented by: Sodium Chloride (0.9% Saline Lock 10 Ml Syringe) 10 - 40 ml IV UD PRN PRN Reason: SALINE FLUSH Last Admin: 02/19/20 21:01 Dose: 10 ml Documented by: Medical Necessity - Tobacco Use Smoking Status: Current every day smoker Tobacco Use: Cigarettes Assessment/Plan All Active Problems (Last Reviewed 11/08/18 @ 14:53 by Claire Lewis DATABASE MODELER, DATABASE MODELER- C) JANESSA (acute kidney injury) (Acute) UTI (urinary tract infection) (Acute) COVID-19 (Acute) Lactic acidosis (Acute) Severe sepsis (Acute) Acute respiratory failure with hypoxia (Resolved) Aspiration pneumonia (Resolved) Overdose (Resolved) Unresponsive episode (Resolved) Diarrhea (Resolved) History of Clostridium difficile (Resolved) Acute exacerbation of chronic obstructive pulmonary disease (COPD) (Ruled-out) SIRS with Severe sepsis due to UTI (Ruled-out) Urinary tract infection (Ruled-out) 1. Severe sepsis secondary to UTI and COVID-19-UA positive. Recent urine culture grew Pseudomonas. IV Zosyn. Repeat urine and blood cultures pending. Oxygen stable on room air. Supportive treatment for COVID-19 at this time. Monitor O2. Patient has not been noted to be hypoxic. PT/OT. 2. Acute kidney injury-significantly improved with IV fluids, trend BMP. 3. Type 2 diabetes mellitus-hold oral regimen. Accu-Cheks with sliding scale insulin. 4. Hypertension-stable, continue lisinopril 5. Hyperlipidemia-continue statin. 6. Hypothyroidism-continue Synthroid. 7. GERD-continue PPI. 8. Rheumatoid arthritis/psoriatic arthritis and psoriasis-on Xeljanz, Plaquenil. 9. Depression/anxiety-on amitriptyline, duloxetine, quetiapine, as needed Vistaril. 10. Tobacco dependence- encouraged cessation. 11. Morbid obesity- encouraged diet and lifestyle modifications. DVT prophylaxis-Heparin sc This patient was seen by BYRON Navarro under the supervision of Dr. Mercado. <Constance Mercado - Last Filed: 02/20/20 16:07> - Physical Exam Vitals/I&O's: Vital Signs Temp Pulse Resp BP Pulse Ox 99.5 F H 100 20 H 119/75 94 02/20/20 15:00 02/20/20 15:00 02/20/20 15:00 02/20/20 15:00 02/20/20 15:00 Oxygen Flow Rate (L/min) 2 Oxygen Delivery Method Room Air Weight: 166.4 kg Body Mass Index (BMI) 54.2 Finger Stick Blood Glucose 294 Intake and Output for Last 24 Hours 02/18/20 02/19/20 02/20/20 23:59 23:59 23:59 Intake Total 2451.67 / 2571.67 1708.33 / 1708.33 Balance 2451.67 / 2571.67 1708.33 / 1708.33 Microbiology Past 72 Hours 02/19/20 14:05 Urine, Random Urine Culture - Preliminary GNR Poss Pseudomonas sp Laboratory Results 02/19/20 11:45: Diff Path Review Reviewed 02/19/20 12:20: COVID-19 (AMANDA) Detected 02/19/20 17:02: Lactic Acid 1.8 02/19/20 21:00: POC Glucose 87 02/20/20 05:27: POC Glucose 74 02/20/20 06:30: WBC 12.2 H, RBC 3.88 L, Hgb 10.3 L, Hct 35.2 L, MCV 90.7, MCH 26.5 L, MCHC 29.3 L, RDW Std Deviation 51.5 H, RDW Coeff of Ralph 15.8 H, Plt Count 332, MPV 9.5, Immature Gran % (Auto) 0.400, Neut % (Auto) 75.2 H, Lymph % (Auto) 16.2 L, [place] % (Auto) 7.3, Eos % (Auto) 0.7, Baso % (Auto) 0.2, Absolute Neuts (auto) 9.2 H, Absolute Lymphs (auto) 1.97, Nucleated RBC % 0 02/20/20 06:30: Sodium 142, Potassium 4.0, Chloride 109 H, Carbon Dioxide 26.0, Anion Gap 7, BUN 25 H, Creatinine 1.92 H, Estim Creat Clear Calc 35.01, Est GFR (MDRD) Af Amer 35 L, Est GFR (MDRD) Non-Af 29 L, BUN/Creatinine Ratio 13.0, Glucose 55 L, Calcium 7.6 L 02/20/20 11:08: POC Glucose 92 Current Medications Acetaminophen (Acetaminophen 500 Mg Tablet) 1,000 mg PO Q8H PRN PRN PRN Reason: Pain 1-10 or Fever Albuterol Sulfate (Albuterol 2.5 Mg/3 Ml Vial.Neb.) 2.5 mg INHALATION Q6HWA.RT [facility] Amitriptyline HCl (Amitriptyline 100 Mg Tablet) 100 mg PO DAILY [facility] Last Admin: 02/20/20 09:11 Dose: 100 mg Documented by: Aspirin (Aspirin 81 Mg Tab.Chew) 81 mg PO DAILY [facility] Last Admin: 02/20/20 08:58 Dose: 81 mg Documented by: Atorvastatin Calcium (Atorvastatin Calcium 20 Mg Tablet) 20 mg PO QHS [facility] Last Admin: 02/19/20 20:58 Dose: 20 mg Documented by: Calamine/Phenol (Menthol/Lanolin/Calamine/Znox 113 Gm Tube) 1 applic TOPICAL 4X/DAY [facility]; Protocol Last Admin: 02/20/20 13:11 Dose: 1 dose Documented by: Cyclobenzaprine HCl (Cyclobenzaprine Hcl 5 Mg Tablet) 5 mg PO DINNER [facility] Cyclobenzaprine HCl (Cyclobenzaprine Hcl 10 Mg Tablet) 10 mg PO BID [facility] Last Admin: 02/20/20 08:58 Dose: 10 mg Documented by: Dextrose (Dextrose 50%-Water 25 Gm/50 Ml Disp.Syrin) 0 gm IV X1 PRN; Protocol PRN Reason: Hypoglycemia Duloxetine HCl (Duloxetine Hcl 60 Mg Capsule) 60 mg PO DAILY [facility] Last Admin: 02/20/20 09:10 Dose: 60 mg Documented by: Glucagon (Glucagon 1 Mg/Ml Syringe) 1 mg IM .X1 PRN PRN Reason: Hypoglycemia Heparin Sodium (Porcine) (Heparin Injection (Vial) 5,000 Unit/Ml Vial) 5,000 unit SC 0200,1000,1800 [facility] Last Admin: 02/20/20 08:58 Dose: 5,000 unit Documented by: Hydroxychloroquine Sulfate (Hydroxychloroquine 200 Mg Tablet) 300 mg PO DAILY [facility] Last Admin: 02/20/20 09:11 Dose: 300 mg Documented by: Hydroxyzine Pamoate (Hydroxyzine Dolly 25 Mg Capsule) 50 mg PO 4X/DAY [facility] Last Admin: 02/20/20 13:09 Dose: 50 mg Documented by: Sodium Chloride () 1,000 mls @ 100 mls/hr IV .Q10H [facility] Last Admin: 02/20/20 05:37 Dose: 100 mls/hr Documented by: Piperacillin Sod/Tazobactam (Sod 3.375 gm/ Sodium Chloride) 50 mls @ 12.5 mls/hr IV Q8 [facility] Last Admin: 02/20/20 13:09 Dose: 12.5 mls/hr Documented by: Insulin Human Lispro (Insulin Lispro 100 Unit/Ml Insuln.Pen) 0 unit SC ACHS [facility]; Protocol Last Admin: 02/20/20 11:46 Dose: Not Given Documented by: Levothyroxine Sodium (Levothyroxine 150 Mcg Tablet) 150 mcg PO DAILY [facility] Last Admin: 02/20/20 09:11 Dose: 150 mcg Documented by: Melatonin (Melatonin 10 Mg Tablet) 10 mg PO QHS [facility] Last Admin: 02/19/20 20:59 Dose: 10 mg Documented by: Oxycodone HCl (Oxycodone 5 Mg Tablet) 5 mg PO Q6H PRN PRN PRN Reason: Pain Score 6-10 Last Admin: 02/20/20 15:12 Dose: 5 mg Documented by: Pantoprazole Sodium (Pantoprazole Sodium 20 Mg Tablet) 20 mg PO DAILY [facility] Last Admin: 02/20/20 09:10 Dose: 20 mg Documented by: Prednisone (Prednisone 20 Mg Tablet) 20 mg PO DAILY [facility] Last Admin: 02/20/20 08:58 Dose: 20 mg Documented by: Quetiapine Fumarate (Quetiapine 100 Mg Tablet) 300 mg PO QHS [facility] Last Admin: 02/19/20 20:58 Dose: 300 mg Documented by: Sodium Chloride (0.9% Saline Lock 10 Ml Syringe) 10 - 40 ml IV UD PRN PRN Reason: SALINE FLUSH Last Admin: 02/19/20 21:01 Dose: 10 ml Documented by: Assessment/Plan This patient was seen in conjunction with Nevin Gee DATABASE MODELER. I have independently interviewed and examined the patient and reviewed pertinent historical, laboratory, and other data. Please refer to her note for patient's presentation, findings, and recommendations. Patient was seen and examined. Patient had multiple complaints of feeling unwell. She is on 2 L of oxygen. Stated that she feels that she cannot walk. Will have PT and OT evaluate her. Vitals were reviewed -stable Physical Exam: Gen: Morbidly obese, not pale, not jaundiced, alert oriented x3 CVS:HS I +II, regular, no murmurs RESP: Diminished at lung bases GI: BS present and normal, nontender, no palpable organs EXT:No edema Labs reviewed: ASSESSMENT: 1. Severe sepsis secondary to UTI/COVID-19 2. Acute COVID-19 without hypoxia 3. Type II DM 4. Hypertension 5. Hyperlipidemia 6. Hypothyroidism 7. GERD 8. Rheumatoid arthritis/psoriatic arthritis 9. Anxiety/depression 10.Nicotine dependence 11. Morbid obesity Meds reviewed Plan: Continue on IV Zosyn for now PT and OT to evaluate and treat Discharge planning in place Inpatient E&M: [id number] Subs Hosp L2
--- NOTE | 2020-02-20 14:22 | CASEMGMT ---
YUSUF called patient in her room per her request. YUSUF called her on phone because she is COVID positive. Patient wanted to know if SW called [facility]. YUSUF told her SW did and spoke with RN Althea. Althea said she could return as long as she does not need close monitoring as they are short staffed due to staff being out with COVID. She said she may need to stay for a couple of days. YUSUF told her we will take it one day at a time. YUSUF asked her about going to a correction. She said she wants to go back to [facility]. YUSUF told her SW will follow and see how she does with therapy. Kaitlin ZUNIGA MSW
[2020-02-20 14:55] LABS: Pathologist Review Reviewed
[2020-02-20] MEDS: oxyCODONE 5 MG Tablet PO (15:12)
[2020-02-20] MEDS: Insulin Lispro 100 UNIT/ML INSULN.PEN SC (16:30)
[2020-02-20 16:46] LABS: Bedside Glucose 269 mg/dL (70-110)
[2020-02-20] MEDS: cycloBENZAPRine HCl 5 MG TABLET PO (17:05)
[2020-02-20] MEDS: Acetaminophen 500 MG Tablet 1000 MG PO (17:43)
--- NOTE | 2020-02-20 19:26 | CPS ---
PATIENT REFUSED TREATEMTN.
[2020-02-20] MEDS: MELATONIN 10 MG TABLET PO (21:37)
[2020-02-20] MEDS: Atorvastatin Calcium 20 MG Tablet PO (21:37)
[2020-02-20] MEDS: QUEtiapine 100 MG Tablet 300 MG PO (21:39)
[2020-02-21] VITALS (8 sets, daily range): BP systolic 117–144; BP diastolic 70–81; PULSE 75–96; RESP 16–20; TEMP 36.8–37.1; O2SAT 93–95
[2020-02-21 00:16] LABS: Bedside Glucose 85 mg/dL (70-110)
[2020-02-21] MEDS: Heparin Injection (Vial) 5,000 UNIT/ML VIAL 5000 UNIT SC ×2 (01:20→09:52)
[2020-02-21] MEDS: Acetaminophen 500 MG Tablet 1000 MG PO (01:22)
[2020-02-21] MEDS: 0.9% Normal Saline 1,000 ML 100 ML IV (01:23)
[2020-02-21] MEDS: oxyCODONE 5 MG Tablet PO ×2 (03:35→11:50)
[2020-02-21] MEDS: Albuterol 2.5 MG/3 ML VIAL.NEB. INHALATION ×2 (04:21→11:15)
--- NOTE | 2020-02-21 04:21 | CPS ---
patient recieved prn treatment by nursing request due to sob.
[2020-02-21 06:33] LABS: Hematocrit 34.5 % (37-47); Hemoglobin 10.5 g/dL (12.0-15.0); Mean Corp Hgb Conc 30.4 g/dL (32-36); Mean Corpuscular Volume 88.7 fL (81-99); Mean Platelet Vol. 9.5 fl (6.2-12.0); Platelet Count 297 K/mm3 (150-450); RBC Distribution Width CV 15.5 % (11.6-14.6); RBC Distribution Width SD 49.7 fl (35.1-43.9); Red Blood Count 3.89 M/mm3 (4.2-5.4); White Blood Count 7.7 K/mm3 (4.4-11.0)
[2020-02-21 07:00] LABS: Anion Gap 4 (5-15); BUN 15 mg/dL (7-18); BUN/Creat Ratio 15.1 RATIO (10-20); Calcium,Total 7.6 mg/dL (8.5-10.1); Chloride 113 mmol/L (98-107); Creatinine, Serum 0.99 mg/dL (0.55-1.02); EST Glomerular Filtration Rate 62 mL/min (>60); Est Glom Filt Rate - Afr Amer 75 mL/min (>60); Estimated Creatinine Clearance 67.89 ml/min; Glucose 50 mg/dL (74-106); Potassium 4.3 mmol/L (3.5-5.1); Sodium Level 143 mmol/L (136-145)
[2020-02-21 07:26] LABS: Bedside Glucose 67 mg/dL (70-110)
[2020-02-21 07:26] LABS: Bedside Glucose 51 mg/dL (70-110)
[2020-02-21 07:50] LABS: Bedside Glucose 70 mg/dL (70-110)
[2020-02-21] MEDS: Hydroxychloroquine 200 MG Tablet 300 MG PO (09:52)
[2020-02-21] MEDS: predniSONE 20 MG Tablet PO (09:53)
[2020-02-21] MEDS: cycloBENZAPRine HCl 10 MG Tablet PO (09:53)
[2020-02-21] MEDS: DULoxetine Hcl 60 MG Capsule PO (09:53)
[2020-02-21] MEDS: Aspirin 81 MG TAB.CHEW PO (09:53)
[2020-02-21] MEDS: Amitriptyline 100 MG Tablet PO (09:53)
[2020-02-21] MEDS: Levothyroxine 150 MCG Tablet PO (09:53)
[2020-02-21] MEDS: hydrOXYzine PAM 25 MG Capsule 50 MG PO ×3 (09:53→17:03)
[2020-02-21] MEDS: Pantoprazole Sodium 20 MG Tablet PO (09:53)
[2020-02-21] MEDS: Menthol/Lanolin/Calamine/Znox 113 GM Tube 1 APPLIC TOPICAL ×2 (09:54→14:16)
--- NOTE | 2020-02-21 11:45 | CASEMGMT ---
Therapy is recommending [facility] facility for patient. There is only one local facility that is taking COVID positive patients right now. Unfortunately that facility is not in network with patient's insurance. However, due to COVID and no other local facilities accepting positive patients insurance may give the facility a one time contract. YUSUF spoke with patient and let her know this information. She is in agreement with going to [facility] short term as long as she can return to her assisted living apartment. YUSUF asked if she would like YUSUF to call her mom and she said yes. YUSUF called Sophia with [facility] regarding referral. She told SW to go ahead and fax everything. YUSUF faxed referral. A short time later SW received a call from Alyse who works on obtaining pre-certs for [facility]. They asked that YUSUF give a list of 5 facilities and their contact people in the area that are declining patient due to being COVID positive. YUSUF completed this information [facility] [phone]. Await response. YUSUF did call patient's mom and explained situation to her. She is in agreement as well. Kaitlin ZUNIGA MSW
--- NOTE | 2020-02-21 14:15 | CASEMGMT ---
YUSUF called Sophia at [facility] in [place]. She will call the individual handling patient's case to check on progress. She will call YUSUF back. Plan: [facility] pending insurance approval. Kaitlin PICKETT
[2020-02-21 14:36] LABS: Bedside Glucose 90 mg/dL (70-110)
[2020-02-21 14:36] LABS: Bedside Glucose 71 mg/dL (70-110)
--- NOTE | 2020-02-21 14:47 | PCM.PN.HOSP ---
Patient Problems: Active and Suspected Problems (Last Reviewed 11/08/18 @ 14:53 by Claire Lewis DECAY CONTROL OPERATOR, DECAY CONTROL OPERATOR-C) JANESSA (acute kidney injury) (Acute) UTI (urinary tract infection) (Acute) COVID-19 (Acute) Lactic acidosis (Acute) Severe sepsis (Acute) Reason for Visit: Follow-up on COVID-19 infection/acute UTI Subjective: Patient was seen and examined. She complains of feeling weak. No other acute events overnight. Discharge planning in progress Objective: Physical exam: General: Alert, Oriented x3, Cooperative HEENT: Atraumatic, PERRLA, EOMI, Normocephalic Neck: Supple, No JVD, Negative Carotid Bruits Lungs: Clear to auscultation, Diminished Cardiovascular: Regular rate, No murmurs Abdomen: Bowel Sounds Present, Soft, Non Tender, Non-Distended, Obese Extremities: No clubbing, No cyanosis, No edema, Capillary Refill Less than 3 Seconds Skin: No rashes, No breakdown Musculoskeletal: No Tenderness to Palpation of Joints or Extremities Neurological: Cranial nerves II-XII grossly intact, Neuro grossly intact Psych/Mental Status: Impulsive, Restless Vitals/I&O's: Vital Signs Temp Pulse Resp BP Pulse Ox 98.3 F 96 18 127/81 H 94 02/21/20 14:13 02/21/20 14:13 02/21/20 14:13 02/21/20 14:13 02/21/20 14:13 Oxygen Flow Rate (L/min) 2 Oxygen Delivery Method Room Air Weight: 166.4 kg Body Mass Index (BMI) 54.2 Finger Stick Blood Glucose 294 Intake and Output for Last 24 Hours 02/19/20 02/20/20 02/21/20 23:59 23:59 23:59 Intake Total 2451.67 / 2571.67 3243.08 / 3243.08 2157. / 215.25 Output Total 150 / 150 Balance 2451.67 / 2571.67 3093.08 / 3093.08 215.25 / 215.25 Microbiology Past 72 Hours 02/19/20 11:45 Blood Culture (Wb) - Anticubital Left Blood Culture - Preliminary No growth in 48 hours. 02/19/20 14:05 Urine, Random Urine Culture - Final Pseudomonas aeroginosa 02/20/20 15:30 Stool C. difficile DNA Amplification - Final Laboratory Results 02/19/20 11:45: Diff Path Review Reviewed 02/20/20 16:26: POC Glucose 269 H 02/20/20 21:36: POC Glucose 85 02/21/20 06:24: WBC 7.7, RBC 3.89 L, Hgb 10.5 L, Hct 34.5 L, MCV 88.7, MCH 27.0, MCHC 30.4 L, RDW Std Deviation 49.7 H, RDW Coeff of Ralph 15.5 H, Plt Count 297, MPV 9.5 02/21/20 06:24: Sodium 143, Potassium 4.3, Chloride 113 H, Carbon Dioxide 26.0, Anion Gap 4 L, BUN 15, Creatinine 0.99, Estim Creat Clear Calc 67.89, Est GFR (MDRD) Af Amer 75, Est GFR (MDRD) Non-Af 62, BUN/Creatinine Ratio 15.1, Glucose 50 L, Calcium 7.6 L 02/21/20 06:51: POC Glucose 51 L 02/21/20 07:07: POC Glucose 67 L 02/21/20 07:39: POC Glucose 70 02/21/20 09:51: POC Glucose 71 02/21/20 11:34: POC Glucose 90 Current Medications Acetaminophen (Acetaminophen 500 Mg Tablet) 1,000 mg PO Q8H PRN PRN PRN Reason: Pain 1-10 or Fever Last Admin: 02/21/20 01:22 Dose: 1,000 mg Documented by: Albuterol Sulfate (Albuterol 2.5 Mg/3 Ml Vial.Neb.) 2.5 mg INHALATION Q6HWA.RT [facility] Last Admin: 02/21/20 11:15 Dose: 2.5 mg Documented by: Amitriptyline HCl (Amitriptyline 100 Mg Tablet) 100 mg PO DAILY [facility] Last Admin: 02/21/20 09:53 Dose: 100 mg Documented by: Aspirin (Aspirin 81 Mg Tab.Chew) 81 mg PO DAILY [facility] Last Admin: 02/21/20 09:53 Dose: 81 mg Documented by: Atorvastatin Calcium (Atorvastatin Calcium 20 Mg Tablet) 20 mg PO QHS [facility] Last Admin: 02/20/20 21:37 Dose: 20 mg Documented by: Calamine/Phenol (Menthol/Lanolin/Calamine/Znox 113 Gm Tube) 1 applic TOPICAL 4X/DAY [facility]; Protocol Last Admin: 02/21/20 14:16 Dose: 1 dose Documented by: Cyclobenzaprine HCl (Cyclobenzaprine Hcl 5 Mg Tablet) 5 mg PO DINNER [facility] Last Admin: 02/20/20 17:05 Dose: 5 mg Documented by: Cyclobenzaprine HCl (Cyclobenzaprine Hcl 10 Mg Tablet) 10 mg PO BID [facility] Last Admin: 02/21/20 09:53 Dose: 10 mg Documented by: Dextrose (Dextrose 50%-Water 25 Gm/50 Ml Disp.Syrin) 0 gm IV X1 PRN; Protocol PRN Reason: Hypoglycemia Duloxetine HCl (Duloxetine Hcl 60 Mg Capsule) 60 mg PO DAILY [facility] Last Admin: 02/21/20 09:53 Dose: 60 mg Documented by: Glucagon (Glucagon 1 Mg/Ml Syringe) 1 mg IM .X1 PRN PRN Reason: Hypoglycemia Heparin Sodium (Porcine) (Heparin Injection (Vial) 5,000 Unit/Ml Vial) 5,000 unit SC 0200,1000,1800 [facility] Last Admin: 02/21/20 09:52 Dose: 5,000 unit Documented by: Hydroxychloroquine Sulfate (Hydroxychloroquine 200 Mg Tablet) 300 mg PO DAILY [facility] Last Admin: 02/21/20 09:52 Dose: 300 mg Documented by: Hydroxyzine Pamoate (Hydroxyzine Dolly 25 Mg Capsule) 50 mg PO 4X/DAY [facility] Last Admin: 02/21/20 14:16 Dose: 50 mg Documented by: Piperacillin Sod/Tazobactam (Sod 3.375 gm/ Sodium Chloride) 50 mls @ 12.5 mls/hr IV Q8 [facility] Last Admin: 02/21/20 14:17 Dose: 12.5 mls/hr Documented by: Sodium Chloride () 250 mls @ 15 mls/hr IV .[id number] PRN PRN Reason: Saline Flush Last Infusion: 02/21/20 11:48 Dose: 0 mls/hr Documented by: Sodium Chloride () 250 mls @ 15 mls/hr IV .[id number] PRN PRN Reason: Additional IVPB Infusion Insulin Human Lispro (Insulin Lispro 100 Unit/Ml Insuln.Pen) 0 unit SC ACHS [facility]; Protocol Last Admin: 02/21/20 11:36 Dose: Not Given Documented by: Levothyroxine Sodium (Levothyroxine 150 Mcg Tablet) 150 mcg PO DAILY [facility] Last Admin: 02/21/20 09:53 Dose: 150 mcg Documented by: Melatonin (Melatonin 10 Mg Tablet) 10 mg PO QHS [facility] Last Admin: 02/20/20 21:37 Dose: 10 mg Documented by: Oxycodone HCl (Oxycodone 5 Mg Tablet) 5 mg PO Q6H PRN PRN PRN Reason: Pain Score 6-10 Last Admin: 02/21/20 11:50 Dose: 5 mg Documented by: Pantoprazole Sodium (Pantoprazole Sodium 20 Mg Tablet) 20 mg PO DAILY [facility] Last Admin: 02/21/20 09:53 Dose: 20 mg Documented by: Prednisone (Prednisone 20 Mg Tablet) 20 mg PO DAILY [facility] Last Admin: 02/21/20 09:53 Dose: 20 mg Documented by: Quetiapine Fumarate (Quetiapine 100 Mg Tablet) 300 mg PO QHS [facility] Last Admin: 02/20/20 21:39 Dose: 300 mg Documented by: Sodium Chloride (0.9% Saline Lock 10 Ml Syringe) 10 - 40 ml IV UD PRN PRN Reason: SALINE FLUSH Last Admin: 02/19/20 21:01 Dose: 10 ml Documented by: STROKE Vital Signs/Narrative: Vital Signs Temp Pulse Resp BP Pulse Ox 02/21/20 14:13 98.3 F 96 18 127/81 H 94 02/21/20 11:15 75 20 H 94 Medical Necessity - Tobacco Use Smoking Status: Current every day smoker Tobacco Use: Cigarettes Assessment/Plan All Active Problems (Last Reviewed 11/08/18 @ 14:53 by Claire Lewis DECAY CONTROL OPERATOR, DECAY CONTROL OPERATOR-C) JANESSA (acute kidney injury) (Acute) UTI (urinary tract infection) (Acute) COVID-19 (Acute) Lactic acidosis (Acute) Severe sepsis (Acute) Acute respiratory failure with hypoxia (Resolved) Aspiration pneumonia (Resolved) Overdose (Resolved) Unresponsive episode (Resolved) Diarrhea (Resolved) History of Clostridium difficile (Resolved) Acute exacerbation of chronic obstructive pulmonary disease (COPD) (Ruled-out) SIRS with Severe sepsis due to UTI (Ruled-out) Urinary tract infection (Ruled-out) Assessment: 1. Severe sepsis secondary to Pseudomonas UTI/COVID-19 2. Acute COVID-19 without hypoxia 3. Type II DM 4. Hypertension 5. Hyperlipidemia 6. Hypothyroidism 7. GERD 8. Rheumatoid arthritis/psoriatic arthritis 9. Anxiety/depression 10.Nicotine dependence 11. Morbid obesity Plan: Continue with IV Zosyn Follow-up with discharge planning Inpatient E&M: [id number] Subs Hosp L2
--- NOTE | 2020-02-21 15:30 | CASEMGMT ---
YUSUF called Justen with [facility] and let him know that the plan is to get patient to [facility] [place] if her insurance approves. YUSUF also called Lorraine Mullen RN phone and left a message letting them know the plan. Awaiting pre-cert for [facility]. Kaitlin ZUNIGA MSW
--- NOTE | 2020-02-21 15:53 | CASEMGMT ---
YUSUF called Sophia with [facility]. She still has not heard from insurance. YUSUF gave her the phone number to [facility] if she gets approval as SW is leaving for the day. There is a green sheet on her chart. Plan: d/c to [facility] pending insurance approval. Kaitlin ZUNIGA MSW
--- NOTE | 2020-02-21 16:35 | PCM.TXEXTCAR ---
- Diet 02/19/20 17:02 Diet: Cardiac: Calorie-Controlled Food consistency:: Regular Liquid Consistency:: Regular/Thin How many daily calories?: 1800 calorie - Routine Orders/Code Status Keep PO Greater than or Equal to (%): 94 - Encourage use of incentive spirometer Routine Lab Work: CBC - within 3 days, BMP - within 3 days Code Status: Full Code - Wound(s) left forearm Wound Type: Skin Tear Coccyx Wound Type: excoriation with some small areas beginning to open left great toe Wound Type: Skin Tear - Therapies Weight Bearing: Weight bearing as tolerated Physical Therapy: Eval and Treat Occupational Therapy: Eval and Treat - Allergies/Procedures Done in Hospital Allergies/Adverse Reactions: Allergies fentanyl Allergy (Verified 09/12/18 15:18) Rash Iodinated Contrast Media [Iodinated Contrast Media - IV Dye] Allergy (Verified 09/12/18 15:18) Hives CAN BE PRE-MEDICATED levofloxacin [From Levaquin] Allergy (Verified 09/12/18 15:18) Rash nitrofurantoin [From Macrobid] Allergy (Verified 09/12/18 15:18) Rash Sulfa (Sulfonamide Antibiotics) Allergy (Verified 09/12/18 15:18) Itching Procedures: None - Type of Care/Length of Stay Estimated LOS: Convalescent Care Less Than 30 days Type of Care Needed: Skilled Rehab Potential: Fair Prognosis: Fair - Additional Orders/Day of Discharge Day of Discharge: 02/21/20 - Dietary and Speech Recommendations Dietitian Recommendations/Changes: Will change diet to Cardiac 2000 tylor to better meet pt est nutritional needs. Will provide 120 ml Glucerna Shake w/ meals per pt request - Follow Up Care Primary Care Physician: Fredy Walsh MD [Primary Care Provider] - Please follow up with your Primary Care Physician in: within 1-2 weeks
--- NOTE | 2020-02-21 16:38 | DS.PCM_ITS ---
Discharge Date and Diagnosis - Problem List Patient Problems: Active and Suspected Problems (Last Reviewed 11/08/18 @ 14:53 by Claire Lewis RUBBER GOODS CUTTER FINISHER, RUBBER GOODS CUTTER FINISHER-C) JANESSA (acute kidney injury) (Acute) UTI (urinary tract infection) (Acute) COVID-19 (Acute) Lactic acidosis (Acute) Severe sepsis (Acute) Date of Admission: 02/19/20 Date of Discharge: 02/21/20 - Primary Discharge Diagnosis Acute Problems: Active Problems (Last Reviewed 11/08/18 @ 14:53 by Claire Lewis RUBBER GOODS CUTTER FINISHER, RUBBER GOODS CUTTER FINISHER-C) 1. Severe sepsis secondary to Pseudomonas UTI/COVID-19 2. Acute COVID-19 without hypoxia 3. JANESSA 4. Super morbid obesity, BMI 54.3 - Secondary Discharge Diagnosis Chronic Problems: Chronic Problems (Last Reviewed 11/08/18 @ 14:53 by Claire Lewis NP, RUBBER GOODS CUTTER FINISHER-C) Bronchiectasis (Chronic) Chronic obstructive lung disease (Chronic) Cigarette smoker (Chronic) Rheumatoid arthritis (Chronic) Chronic back pain (Chronic) Obesity, morbid, BMI 50 or higher (Chronic) Drug-seeking behavior (Chronic) Diabetes mellitus, type II (Chronic) Psoriatic arthritis (Chronic) HLD (hyperlipidemia) (Chronic) Hypothyroidism (Chronic) Anxiety and depression (Chronic) GERD (gastroesophageal reflux disease) (Chronic) HTN (hypertension) (Chronic) Hospital Course and Treatment Imaging Results: Clinical Impression(s) from Imaging Studies Chest X-Ray 02/19/20 12:09 IMPRESSION: Cardiomegaly with diffuse interstitial prominence. Decreased density of opacities in the right lung representing improvement. No acute finding. Electronically Signed: Micah Geronimo MD at 12:52 EST , Service support , Operations: None Procedures: None Summary of Care Provided: The patient is a 54 year old F with multiple comorbidities, with history of recurrent admissions to the hospital for recurrent UTI. She was admitted with shortness of breath and cough. This was associated with fatigue, dysuria frequency. Recently admitted on 01/31/20 septic shock secondary to aspiration pneumonia and Pseudomonas cystitis patient resides in an assisted living facility. COVID-19 PCR test was positive. She however was not on oxygen. Admitting creatinine was 2.79, baseline creatinine of less than 1. UA was suggestive of UTI. Admitted to the telemetry floor, managed as severe sepsis on IV fluids. She also received dexamethasone for COVID-19. During her hospital stay, she did not require oxygen. Her urine cultures grew Pseudomonas that was pansensitive. She was managed on IV Zosyn during the hospital stay. She was discharged on Levaquin. Levaquin is listed in her allergy list rashes. She will complete 1 week treatment for UTI. She was seen and examined by PT and OT and skilled for discharge to assisted facility. Patient Problems: Active and Suspected Problems (Last Reviewed 11/08/18 @ 14:53 by Claire Leiws RUBBER GOODS CUTTER FINISHER, RUBBER GOODS CUTTER FINISHER-C) JANESSA (acute kidney injury) (Acute) UTI (urinary tract infection) (Acute) COVID-19 (Acute) Lactic acidosis (Acute) Severe sepsis (Acute) Subjective: The day of being discharge, patient was seen and examined. Complains of fatigue. She was not on oxygen. Objective: Physical exam: General: Alert, Oriented x3, Cooperative, super morbid obesity HEENT: Atraumatic, PERRLA, EOMI, Normocephalic Neck: Supple, No JVD, Negative Carotid Bruits Lungs: Clear to auscultation, Diminished Cardiovascular: Regular rate, No murmurs Abdomen: Bowel Sounds Present, Soft, Non Tender, Non-Distended, Obese Extremities: No clubbing, No cyanosis, No edema, Capillary Refill Less than 3 Seconds Skin: No rashes, No breakdown Musculoskeletal: No Tenderness to Palpation of Joints or Extremities Neurological: Cranial nerves II-XII grossly intact, Neuro grossly intact - Physical Exam Vitals/I&O's: Vital Signs Temp Pulse Resp BP Pulse Ox 98.3 F 96 18 127/81 H 94 02/21/20 14:13 02/21/20 14:13 02/21/20 14:13 02/21/20 14:13 02/21/20 14:13 Oxygen Flow Rate (L/min) 2 Oxygen Delivery Method Room Air Weight: 166.4 kg Body Mass Index (BMI) 54.2 Finger Stick Blood Glucose 294 Intake and Output for Last 24 Hours 02/19/20 02/20/20 02/21/20 23:59 23:59 23:59 Intake Total 2451.67 / 2571.67 3243.08 / 3243.08 2157.25 / 2157.25 Output Total 150 / 150 Balance 2451.67 / 2571.67 3093.08 / 3093.08 2157.25 / 2157.25 Microbiology Past 72 Hours 02/19/20 11:45 Blood Culture (Wb) - Anticubital Left Blood Culture - Preliminary No growth in 48 hours. 02/19/20 14:05 Urine, Random Urine Culture - Final Pseudomonas aeroginosa 02/20/20 15:30 Stool C. difficile DNA Amplification - Final Laboratory Results 02/20/20 16:26: POC Glucose 269 H 02/20/20 21:36: POC Glucose 85 02/21/20 06:24: WBC 7.7, RBC 3.89 L, Hgb 10.5 L, Hct 34.5 L, MCV 88.7, MCH 27.0, MCHC 30.4 L, RDW Std Deviation 49.7 H, RDW Coeff of Ralph 15.5 H, Plt Count 297, MPV 9.5 02/21/20 06:24: Sodium 143, Potassium 4.3, Chloride 113 H, Carbon Dioxide 26.0, Anion Gap 4 L, BUN 15, Creatinine 0.99, Estim Creat Clear Calc 67.89, Est GFR (MDRD) Af Amer 75, Est GFR (MDRD) Non-Af 62, BUN/Creatinine Ratio 15.1, Glucose 50 L, Calcium 7.6 L 02/21/20 06:51: POC Glucose 51 L 02/21/20 07:07: POC Glucose 67 L 02/21/20 07:39: POC Glucose 70 02/21/20 09:51: POC Glucose 71 02/21/20 11:34: POC Glucose 90 Current Medications Acetaminophen (Acetaminophen 500 Mg Tablet) 1,000 mg PO Q8H PRN PRN PRN Reason: Pain 1-10 or Fever Last Admin: 02/21/20 01:22 Dose: 1,000 mg Documented by: Albuterol Sulfate (Albuterol 2.5 Mg/3 Ml Vial.Neb.) 2.5 mg INHALATION Q6HWA.RT [facility] Last Admin: 02/21/20 11:15 Dose: 2.5 mg Documented by: Amitriptyline HCl (Amitriptyline 100 Mg Tablet) 100 mg PO DAILY [facility] Last Admin: 02/21/20 09:53 Dose: 100 mg Documented by: Aspirin (Aspirin 81 Mg Tab.Chew) 81 mg PO DAILY [facility] Last Admin: 02/21/20 09:53 Dose: 81 mg Documented by: Atorvastatin Calcium (Atorvastatin Calcium 20 Mg Tablet) 20 mg PO QHS [facility] Last Admin: 02/20/20 21:37 Dose: 20 mg Documented by: Calamine/Phenol (Menthol/Lanolin/Calamine/Znox 113 Gm Tube) 1 applic TOPICAL 4X/DAY [facility]; Protocol Last Admin: 02/21/20 14:16 Dose: 1 dose Documented by: Cyclobenzaprine HCl (Cyclobenzaprine Hcl 5 Mg Tablet) 5 mg PO DINNER [facility] Last Admin: 02/20/20 17:05 Dose: 5 mg Documented by: Cyclobenzaprine HCl (Cyclobenzaprine Hcl 10 Mg Tablet) 10 mg PO BID [facility] Last Admin: 02/21/20 09:53 Dose: 10 mg Documented by: Dextrose (Dextrose 50%-Water 25 Gm/50 Ml Disp.Syrin) 0 gm IV X1 PRN; Protocol PRN Reason: Hypoglycemia Duloxetine HCl (Duloxetine Hcl 60 Mg Capsule) 60 mg PO DAILY [facility] Last Admin: 02/21/20 09:53 Dose: 60 mg Documented by: Glucagon (Glucagon 1 Mg/Ml Syringe) 1 mg IM .X1 PRN PRN Reason: Hypoglycemia Heparin Sodium (Porcine) (Heparin Injection (Vial) 5,000 Unit/Ml Vial) 5,000 unit SC 0200,1000,1800 [facility] Last Admin: 02/21/20 09:52 Dose: 5,000 unit Documented by: Hydroxychloroquine Sulfate (Hydroxychloroquine 200 Mg Tablet) 300 mg PO DAILY [facility] Last Admin: 02/21/20 09:52 Dose: 300 mg Documented by: Hydroxyzine Pamoate (Hydroxyzine Dolly 25 Mg Capsule) 50 mg PO 4X/DAY [facility] Last Admin: 02/21/20 14:16 Dose: 50 mg Documented by: Piperacillin Sod/Tazobactam (Sod 3.375 gm/ Sodium Chloride) 50 mls @ 12.5 mls/hr IV Q8 [facility] Last Admin: 02/21/20 14:17 Dose: 12.5 mls/hr Documented by: Sodium Chloride () 250 mls @ 15 mls/hr IV .[id number] PRN PRN Reason: Saline Flush Last Infusion: 02/21/20 11:48 Dose: 0 mls/hr Documented by: Sodium Chloride () 250 mls @ 15 mls/hr IV .[id number] PRN PRN Reason: Additional IVPB Infusion Insulin Human Lispro (Insulin Lispro 100 Unit/Ml Insuln.Pen) 0 unit SC ACHS [facility]; Protocol Last Admin: 02/21/20 11:36 Dose: Not Given Documented by: Levothyroxine Sodium (Levothyroxine 150 Mcg Tablet) 150 mcg PO DAILY [facility] Last Admin: 02/21/20 09:53 Dose: 150 mcg Documented by: Melatonin (Melatonin 10 Mg Tablet) 10 mg PO QHS [facility] Last Admin: 02/20/20 21:37 Dose: 10 mg Documented by: Oxycodone HCl (Oxycodone 5 Mg Tablet) 5 mg PO Q6H PRN PRN PRN Reason: Pain Score 6-10 Last Admin: 02/21/20 11:50 Dose: 5 mg Documented by: Pantoprazole Sodium (Pantoprazole Sodium 20 Mg Tablet) 20 mg PO DAILY [facility] Last Admin: 02/21/20 09:53 Dose: 20 mg Documented by: Prednisone (Prednisone 20 Mg Tablet) 20 mg PO DAILY [facility] Last Admin: 02/21/20 09:53 Dose: 20 mg Documented by: Quetiapine Fumarate (Quetiapine 100 Mg Tablet) 300 mg PO QHS [facility] Last Admin: 02/20/20 21:39 Dose: 300 mg Documented by: Sodium Chloride (0.9% Saline Lock 10 Ml Syringe) 10 - 40 ml IV UD PRN PRN Reason: SALINE FLUSH Last Admin: 02/19/20 21:01 Dose: 10 ml Documented by: Discharge Diet: Low fat/ Low Cholesterol, 2000 mg Sodium Diet Discharge Activity: Return to Normal Activity Home Medications: Medications to take at Discharge Duloxetine HCl 60 mg PO DAILY 08/28/15 Levothyroxine [Synthroid] 150 mcg PO DAILY 08/28/15 Lisinopril [Zestril] 10 mg PO DAILY 06/28/16 Hydroxychloroquine [Plaquenil] 300 mg PO DAILYCM 06/05/18 cycloBENZAPRine HCl [Flexeril] 10 mg PO BID 06/05/18 Amitriptyline HCl [Elavil] 100 mg PO DAILY 01/31/20 Aspirin [Aspirin, Baby] 81 mg PO DAILY@0800 01/31/20 Cholecalciferol (Vitamin D3) [Vitamin D3] 50 mcg PO DAILY 01/31/20 Cranberry Fruit Extract [Cranberry] 400 mg PO DAILY 01/31/20 Cyclobenzaprine HCl 5 mg PO DINNER 01/31/20 Fluticasone/Vilanterol [Breo Ellipta 200-25 Mcg INH] 1 puff INHALATION DAILY 01/31/20 Gabapentin 1,600 mg PO DAILY 01/31/20 Gabapentin 800 mg PO BID 01/31/20 Hydroxyzine Pamoate [Vistaril] 50 mg PO 4X/DAY 01/31/20 Melatonin 10 mg PO QHS 01/31/20 Omeprazole [Prilosec] 20 mg PO DAILY 01/31/20 Quetiapine Fumarate 300 mg PO QHS 01/31/20 Simvastatin 40 mg PO QHS 01/31/20 Sitagliptin Phosphate [Januvia] 100 mg PO DAILY 01/31/20 Tofacitinib Citrate [Xeljanz] 5 mg PO BID 01/31/20 Acetaminophen [Tylenol] 1,000 mg PO TID 02/19/20 Furosemide [Lasix] 20 mg PO DAILY 02/19/20 Gabapentin [Neurontin] 400 mg PO DINNER 02/19/20 Potassium Chloride [Klor-Con M10] 10 meq PO DAILY 02/19/20 Dexamethasone [Decadron] 6 mg PO DAILY 7 Days #7 tab 02/21/20 Insulin Lispro [Humalog KwikPen] See Protocol SC ACHS insuln.pen 02/21/20 Levofloxacin [Levaquin] 750 mg PO DAILY 5 Days #5 tab 02/21/20 Menthol/Lanolin/Calamine/Znox [Calmoseptine Ointment] 1 applic TOPICAL 4X/DAY tube 02/21/20 Following Prescriptions Were Given to Patient: Dexamethasone [Decadron] 6 mg PO DAILY 7 Days #7 tab Levofloxacin [Levaquin] 750 mg PO DAILY 5 Days #5 tab Primary Care Physician: Fredy Walsh MD [Primary Care Provider] - Please follow up with your Primary Care Physician in: within 1-2 weeks [facility]position: [facility] facility Minutes spent on discharge:: 40 Patient Condition:: Stable Medical Necessity - Tobacco Use Smoking Status: Current every day smoker Tobacco Use: Cigarettes Meaningful Use Info Meaningful Use Diagnoses (Choose all that apply): None applicable Inpatient E&M: 96121 [facility] Hosp
[2020-02-21] MEDS: cycloBENZAPRine HCl 5 MG TABLET PO (17:03)
[2020-02-21 17:10] LABS: Bedside Glucose 136 mg/dL (70-110)
== END 2020-02-21 17:45 | disposition skilled nursing facility (03) | DRG 871 ==
LOC: ED 12:59 → PCU 15:32
PROVIDERS: Nurse Practitioner Family; Admitting Provider Family Medicine; Emergency Provider Emergency Medicine; PCP Family Medicine; Visit Provider Internal Medicine
DX: A41.89 Other specified sepsis (principal); U07.1 COVID-19; N39.0 Urinary tract infection, site not specified; N17.9 Acute kidney failure, unspecified; E87.2 Acidosis; Z68.43 Body mass index [BMI] 50.0-59.9, adult; A41.52 Sepsis due to Pseudomonas; R65.20 Severe sepsis without septic shock; J43.2 Centrilobular emphysema; J47.9 Bronchiectasis, uncomplicated; E11.42 Type 2 diabetes mellitus with diabetic polyneuropathy; I10 Essential (primary) hypertension; E78.5 Hyperlipidemia, unspecified; E03.9 Hypothyroidism, unspecified; L40.50 Arthropathic psoriasis, unspecified; M06.9 Rheumatoid arthritis, unspecified; M54.9 Dorsalgia, unspecified; G89.29 Other chronic pain; K21.9 Gastro-esophageal reflux disease without esophagitis; F32.9 Major depressive disorder, single episode, unspecified; F41.9 Anxiety disorder, unspecified; E66.01 Morbid (severe) obesity due to excess calories; F17.210 Nicotine dependence, cigarettes, uncomplicated; Z76.5 Malingerer [conscious simulation]; Z79.52 Long term (current) use of systemic steroids; Z79.82 Long term (current) use of aspirin; Z79.4 Long term (current) use of insulin; Z79.890 Hormone replacement therapy; Z79.899 Other long term (current) drug therapy; Z87.440 Personal history of urinary (tract) infections; Z98.84 Bariatric surgery status
CPT/HCPCS: 36415; 71045; 80048; 80053; 81001; 82962; 83605; 84484; 85025; 85027; 85610; 85730; 87040; 87077; 87086; 87088; 87184; 87186; 87493; 87635; 93005; 94640; 97110; 97116; 97162; 97166; 97530; 97535; 99285; 99406; J7030; J7050; A4216; U0002

== ENCOUNTER 2020-05-11 22:27 | Observation (INO) | payer MEDICARE, MEDICAID, SELFPAY ==
[2020-02-19 11:22] VITALS: BMI 54.2
[2020-05-11 22:28] VITALS: BP 142/80; PULSE 105; RESP 20; TEMP 36.7; O2SAT 97; BMI 53.2
--- NOTE | 2020-05-11 22:33 | EKG12_ITS ---
Test Reason : WEAKNESS Blood Pressure : / mmHG Vent. Rate : 104 BPM Atrial Rate : 104 BPM P-R Int : 152 ms QRS Dur : 072 ms QT Int : 342 ms P-R-T Axes : 054 081 016 degrees QTc Int : 449 ms Sinus tachycardia with occasional Premature ventricular complexes Low voltage QRS Septal infarct , age undetermined Abnormal ECG Confirmed by ZOË DANG, EDDIE ([id number]), senior editor CONNIE [employer] ([id number]) on 05/13/2020 12:22:02 P M Referred By: FAREED Confirmed By:KAYLA CAMP MD
--- NOTE | 2020-05-11 22:51 | ED.DCSUM_ITS ---
History of Present Illness Chief Complaint: Weakness Narrative: Patient presenting for evaluation secondary to generalized weakness. Patient tells me that over the course of the last couple of days she has been having some difficulties that seem consistent with when she has had urinary tract infections in the past. She reports that she is having difficulty with urinating and generalized weakness. Patient apparently sat in her chair at assisted living all day today and was unable to get up. EMS was contacted, they stated that they found the patient seated on the floor. Patient denies any laterality to her weakness. No vision changes or speech difficulty. She does report that she has been getting some subjective fevers. No chest pain or cough, no shortness of breath. Review of systems otherwise negative. Past Medical History - Allergies and Home Meds Allergies/Adverse Reactions: Allergies fentanyl Allergy (Verified 05/11/20 22:53) Rash Iodinated Contrast Media [Iodinated Contrast Media - IV Dye] Allergy (Verified 05/11/20 22:53) Hives CAN BE PRE-MEDICATED levofloxacin [From Levaquin] Allergy (Verified 05/11/20 22:53) Rash nitrofurantoin [From Macrobid] Allergy (Verified 05/11/20 22:53) Rash Sulfa (Sulfonamide Antibiotics) Allergy (Verified 05/11/20 22:53) Itching Primary Care Physician: Fredy Walsh MD [Primary Care Provider] - Prior records reviewed: Yes Past Medical History: - - Hypertension, hyperlipidemia, diabetes, COPD Surgical History: cholecystectomy, gastric bypass, - - Multiple back surgeries, ?6 Smoking Status: Current every day smoker - Family History Paternal Family History: Reports: Cancer - Lung CA, tobacco use. Offspring Family History: Reports: - - Obesity Maternal Family History: Reports: Stroke Review of Systems General: Reports: Fever, Malaise Eyes: Denies: Visual changes - bilaterally, Diplopia ENT: Denies: Rhinorrhea, Sore throat Cardiovascular: Denies: Chest pain, Palpitations Respiratory: Denies: Dyspnea, Cough, Dyspnea on exertion Gastrointestinal: Denies: Abdominal pain, Nausea, Vomiting, Diarrhea, Melena, Hematochezia Genitourinary: Denies: Dysuria, Hematuria, Frequency Musculoskeletal: Denies: Back pain, Extremity Pain Skin: Denies: Rash, Wounds Neurological: Denies: Headache, Weakness, Numbness Physical Exam Vital Signs/Narrative: Vital Signs Temp Pulse Resp BP Pulse Ox 05/11/20 22:28 98.1 F 105 H 20 H 142/80 H 97 Inital Vital Signs reviewed: Yes General: Well nourished, Well developed, Obese, No Acute Distress Head: Normocephalic, Atraumatic Eyes: Perrl, EOMI ENT: Moist mucous membranes, No rhinorrhea Neck: Supple, Nontender Cardiovascular: Regular rhythm, No murmurs, Tachycardia Respiratory: No distress, CTA bilaterally, Chest nontender Abdomen: Soft, Nontender, Nondistended, Normal bowel sounds Back: Nontender, Normal Inspection Extremities: Nontender, Edema - 1+ bilaterally lower extremity Skin: Normal color, No rash Neurological: Alert, Oriented x3, Cranial nerves II-XII grossly intact, Normal Strength, Normal Sensation, - - No lateralizing deficits. NIH is 0. Psychological: Normal affect, Normal Mood Diagnostic/Tx/Re-eval Chest X-Ray - ED: 1 View, Read by ED Physician, No Acute Disease Clinical Impression(s) from Imaging Studies Chest X-Ray 05/11/20 23:00 IMPRESSION: No acute findings on this portable exam. at 0002 Reported and signed by: Jennifer العلي MD Electronically Signed: Jennifer العلي MD at 0:02 EST Tel , Service support , Laboratory Data 05/11/20 05/11/20 05/11/20 22:50 22:50 22:50 WBC 8.5 RBC 4.06 L Hgb 11.7 L Hct 35.5 L MCV 87.4 MCH 28.8 MCHC 33.0 RDW Std Deviation 58.2 H RDW Coeff of Ralph 18.5 H Plt Count 289 MPV 9.8 Immature Gran % (Auto) 0.400 Neut % (Auto) 53.1 Lymph % (Auto) 29.0 [place] % (Auto) 15.3 H Eos % (Auto) 1.5 Baso % (Auto) 0.7 Absolute Neuts (auto) 4.5 Absolute Lymphs (auto) 2.48 Nucleated RBC % 0 Sodium 137 Potassium 3.2 L Chloride 102 Carbon Dioxide 28.0 Anion Gap 7 BUN 4 L Creatinine 0.81 Estim Creat Clear Calc 82.98 Est GFR (MDRD) Af Amer 95 Est GFR (MDRD) Non-Af 78 BUN/Creatinine Ratio 4.9 L Glucose 124 H Calcium 8.7 Total Creatine Kinase Troponin I < 0.015 B-Natriuretic Peptide 18.0 Urine Color Urine Clarity Urine pH Ur Specific [place] Urine Protein Urine Glucose (UA) Urine Ketones Urine Occult Blood Urine Nitrite Urine Bilirubin Urine Urobilinogen Ur Leukocyte Esterase Urine RBC Urine WBC Ur Squamous Epith Cells Ur Transition Epith Cell Urine Bacteria Urine Mucus 05/11/20 05/11/20 22:50 23:37 WBC RBC Hgb Hct MCV MCH MCHC RDW Std Deviation RDW Coeff of Ralph Plt Count MPV Immature Gran % (Auto) Neut % (Auto) Lymph % (Auto) [place] % (Auto) Eos % (Auto) Baso % (Auto) Absolute Neuts (auto) Absolute Lymphs (auto) Nucleated RBC % Sodium Potassium Chloride Carbon Dioxide Anion Gap BUN Creatinine Estim Creat Clear Calc Est GFR (MDRD) Af Amer Est GFR (MDRD) Non-Af BUN/Creatinine Ratio Glucose Calcium Total Creatine Kinase 206 H Troponin I B-Natriuretic Peptide Urine Color Radha Urine Clarity Turbid Urine pH 6.5 Ur Specific [place] 1.020 Urine Protein 100 H Urine Glucose (UA) Normal Urine Ketones 15 H Urine Occult Blood 250 H Urine Nitrite Positive H Urine Bilirubin 1 H Urine Urobilinogen 8 H Ur Leukocyte Esterase 500 H Urine RBC 10-25 SEEN Urine WBC 25-50 SEEN Ur Squamous Epith Cells 0 SEEN Ur Transition Epith Cell 0-5 SEEN Urine Bacteria 4+ Urine Mucus 0 SEEN - EKG Initial EKG Interpretation: - - Sinus tachycardia with a rate of 104, occasional PVCs are noted. Septal Q waves that are found to be chronic. Isoelectric ST segments, chronic T wave flattening that is noted diffusely. No evidence of acute ischemic changes. - Medical Decision Making Patient presented secondary to generalized weakness, no indication for stroke team patient's weakness is generalized and not lateralizing. 1 view chest x-ray shows chronic changes nothing acute by my personal review as well as radiology. Laboratory work-up unremarkable, no signs of sepsis or electrolyte derangement troponin was negative. EKG was found to be unremarkable. Urinalysis does demonstrate signs of infection. Patient was cultured was given Rocephin. Patient still has an inability to walk and has a functional decline. Patient will be admitted for further treatment of her UTI. ED Disposition - Plan for ED Patient: Disposition: Acute Care Hospital [facility] Diagnosis: UTI (urinary tract infection), Declining functional status
[2020-05-11 22:58] LABS: Absolute Lymphocyte Count 2.48 X10^3/uL (0.83-4.51); Absolute Neutrophil Count 4.5 X10^3/uL (2.0-7.7); Basophil# 0.06 X10^3/uL; Basophil% 0.7 % (0-1); Eosinophil# 0.13 X10^3/uL; Eosinophils% 1.5 % (0-5); Hematocrit 35.5 % (37-47); Hemoglobin 11.7 g/dL (12.0-15.0); Lymphocyte # 2.48 X10^3/ul (4.0); Mean Corpuscular Hgb 28.8 pg (27.0-32.0); Mean Corpuscular Volume 87.4 fL (81-99); Mean Platelet Vol. 9.8 fl (6.2-12.0); Monocyte# 1.31 X10^3/uL; Monocyte% 15.3 % (0-10); NRBC Flagged by Analyzer 0 % (0-5); Neutrophil # 4.53 X10^3/uL (2.7-7.7); Neutrophil % 53.1 % (47-70); Platelet Count 289 K/mm3 (150-450); RBC Distribution Width CV 18.5 % (11.6-14.6); RBC Distribution Width SD 58.2 fl (35.1-43.9); Red Blood Count 4.06 M/mm3 (4.2-5.4); White Blood Count 8.5 K/mm3 (4.4-11.0)
--- NOTE | 2020-05-11 23:00 | RAD_ITS ---
HISTORY: Weakness last couple of days. ADDITIONAL HISTORY: None provided. EXAMINATION/TECHNIQUE: XR Chest 1 View AP/PA Number of images including paperwork: 1 COMPARISON: 02/19/2020 FINDINGS: LUNGS AND PLEURA: No consolidation, mass or pleural effusion. CARDIAC SILHOUETTE: Stable. MEDIASTINUM AND KEENA: Stable. UPPER ABDOMEN: Unremarkable. SKELETON AND SOFT TISSUES: No acute skeletal findings. OTHER DEVICES AND HARDWARE: None. RAD/Chest 1 View (Portable) IMPRESSION: No acute findings on this portable exam. at 0002 Reported and signed by: Jennifer العلي MD Electronically Signed: Jennifer العلي MD at 0:02 EST Tel , Service support ,
[2020-05-11 23:15] LABS: Anion Gap 7 (5-15); BUN 4 mg/dL (7-18); BUN/Creat Ratio 4.9 RATIO (10-20); Calcium,Total 8.7 mg/dL (8.5-10.1); Chloride 102 mmol/L (98-107); Creatinine, Serum 0.81 mg/dL (0.55-1.02); EST Glomerular Filtration Rate 78 mL/min (>60); Est Glom Filt Rate - Afr Amer 95 mL/min (>60); Estimated Creatinine Clearance 82.98 ml/min; Glucose 124 mg/dL (74-106); Potassium 3.2 mmol/L (3.5-5.1); Sodium Level 137 mmol/L (136-145)
[2020-05-11 23:42] VITALS: BP 120/90; PULSE 104; RESP 15; TEMP 37.1; O2SAT 97
[2020-05-11 23:45] LABS: Color, Urine Amber (Yellow); Glucose, Dipstick Normal (Normal); Ketone-Dipstick 15 mg/dl (Negative); Leukocyte Esterase-Dipstick 500 /ul (Negative); Mucous, Urine 0 SEEN /hpf (<or=2+); Nitrite-Dipstick Positive (Negative); Occult Blood-Urine 250 /ul (Negative); Protein-Dipstick 100 mg/dl (Negative); Squamous Epithelial Cells - UA 0 SEEN /hpf (5-10); Urine Clarity Turbid (Clear); Urine Urobilinogen 8 mg/dl (Normal); Urine pH 6.5 (5.0 - 8.0)
[2020-05-11 23:47] LABS: CPK Total, Creatine Kinase 206 U/L (26-192)
[2020-05-12] VITALS (12 sets, daily range): BP systolic 104–129; BP diastolic 50–82; PULSE 102–106; RESP 14–28; TEMP 36.5–37.6; O2SAT 94–97; BMI 50.6; BMI 50.7
[2020-05-12 00:01] LABS: Urine Bilirubin Dipstick 1 mg/dL (Negative)
[2020-05-12 00:04] LABS: Bacteria 4+ /hpf (None Seen); Red Blood Cells-Urine 10-25 SEEN /hpf (0-5); Transitional Epithelial - Ur 0-5 SEEN /hpf (0-5); White Blood Cells 25-50 SEEN /hpf (0-5)
[2020-05-12] MEDS: Ceftriaxone 1 GM/50 ML BAG IV (00:35)
--- NOTE | 2020-05-12 00:41 | PCM.HP.STD ---
History of Present Illness Date of Admission: 05/12/20 Chief Complaint: weakness, lethargy The patient is a 54 year old F with an extensive past medical history as outlined was admitted through the ED on 05/12/2020 with a complaint of generalized weakness. Per ED documentation, patient had been having increasing weakness over the last couple of days which was consistent with how she felt when she had UTIs. She was having problems urinating and also a generalized weakness and urinated today of admission, she sat in a chair at her assisted living facility called the and was unable to get up. EMS was called and they found patient seated on the floor. Complaint of shortness of breath and fevers but review of symptoms otherwise negative. Of note, patient was very lethargic at the time that I reviewed her and though she was arousable she could not give me much history. Vitals in the ED showed temperature of 98.7 Fahrenheit with blood pressure of 120/93, pulse rate of 104 and respiratory rate 15. Pulse ox was 97% on room air. Chemistry showed sodium of 137 potassium of 3.2 and creatinine of 0.81. CBC showed hemoglobin of 11.7 and WBC of 8.5 as well as platelets of 289. Urinalysis showed 4+ bacteria with 500 leukocyte esterase positive nitrites. She has been admitted to evaluate for acute metabolic encephalopathy due to UTI. [] Past Medical History Past Medical History (Chronic Problems): Chronic Problems (Last Reviewed 11/08/18 @ 14:53 by Claire Lewis CNC MAINTENANCE TECHNICIAN, CNC MAINTENANCE TECHNICIAN-C) Bronchiectasis (Chronic) Chronic obstructive lung disease (Chronic) Cigarette smoker (Chronic) Rheumatoid arthritis (Chronic) Chronic back pain (Chronic) Obesity, morbid, BMI 50 or higher (Chronic) Drug-seeking behavior (Chronic) Diabetes mellitus, type II (Chronic) Psoriatic arthritis (Chronic) HLD (hyperlipidemia) (Chronic) Hypothyroidism (Chronic) Anxiety and depression (Chronic) GERD (gastroesophageal reflux disease) (Chronic) HTN (hypertension) (Chronic) Medical History: Medical History (Last Reviewed 11/08/18 @ 14:53 by Claire Lewis CNC MAINTENANCE TECHNICIAN, CNC MAINTENANCE TECHNICIAN-C) Severe sepsis (Acute) A41.9, R65.20 Chronic obstructive lung disease (Chronic) J44.9 Cigarette smoker (Chronic) F17.210 Rheumatoid arthritis (Chronic) M06.9 Chronic back pain (Chronic) M54.9, G89.29 Obesity, morbid, BMI 50 or higher (Chronic) E66.01 Drug-seeking behavior (Chronic) Z76.5 Diabetes mellitus, type II (Chronic) E11.9 Psoriatic arthritis (Chronic) L40.50 HLD (hyperlipidemia) (Chronic) E78.5 Hypothyroidism (Chronic) E03.9 Anxiety and depression (Chronic) F41.9, F32.9 GERD (gastroesophageal reflux disease) (Chronic) K21.9 HTN (hypertension) (Chronic) I10 Overdose (Resolved) T50.901A Unresponsive episode (Resolved) Abdominal pain (Inactive) R10.9 Acute hypoxemic respiratory failure (Inactive) J96.01 Community acquired pneumonia (Inactive) J18.9 Diarrhea (Inactive) R19.7 Diarrhea (Inactive) R19.7 Lower abdominal pain (Inactive) R10.30 MRSA (methicillin resistant staph aureus) culture positive (Inactive) Z22.322 Nausea and vomiting (Inactive) R11.2 Pneumonia, bacterial (Inactive) J15.9 SIRS (systemic inflammatory response syndrome) (Inactive) R65.10 Severe sepsis (Inactive) A41.9, R65.20 UTI (urinary tract infection) (Inactive) N39.0 UTI (urinary tract infection) (Inactive) N39.0 UTI (urinary tract infection) (Inactive) N39.0 Allergies fentanyl Allergy (Verified 05/11/20 22:53) Rash Iodinated Contrast Media [Iodinated Contrast Media - IV Dye] Allergy (Verified 05/11/20 22:53) Hives CAN BE PRE-MEDICATED levofloxacin [From Levaquin] Allergy (Verified 05/11/20 22:53) Rash nitrofurantoin [From Macrobid] Allergy (Verified 05/11/20 22:53) Rash Sulfa (Sulfonamide Antibiotics) Allergy (Verified 05/11/20 22:53) Itching Home Medications: Ambulatory Orders Medication Instructions Recorded Duloxetine HCl 60 mg PO DAILY 08/28/15 Levothyroxine [Synthroid] 150 mcg PO DAILY 08/28/15 Lisinopril [Zestril] 10 mg PO DAILY 06/28/16 Hydroxychloroquine [Plaquenil] 300 mg PO DAILYCM 06/05/18 cycloBENZAPRine HCl [Flexeril] 10 mg PO BID 06/05/18 Amitriptyline HCl [Elavil] 100 mg PO DAILY 01/31/20 Aspirin [Aspirin, Baby] 81 mg PO DAILY@0800 01/31/20 Cholecalciferol (Vitamin D3) 50 mcg PO DAILY 01/31/20 [Vitamin D3] Cranberry Fruit Extract [Cranberry] 400 mg PO DAILY 01/31/20 Cyclobenzaprine HCl 5 mg PO DINNER 01/31/20 Fluticasone/Vilanterol [Breo 1 puff INHALATION DAILY 01/31/20 Ellipta 200-25 Mcg INH] Gabapentin 1,600 mg PO DAILY 01/31/20 Gabapentin 800 mg PO BID 01/31/20 Hydroxyzine Pamoate [Vistaril] 50 mg PO 4X/DAY 01/31/20 Melatonin 10 mg PO QHS 01/31/20 Omeprazole [Prilosec] 20 mg PO DAILY 01/31/20 Quetiapine Fumarate 300 mg PO QHS 01/31/20 Simvastatin 40 mg PO QHS 01/31/20 Sitagliptin Phosphate [Januvia] 100 mg PO DAILY 01/31/20 Tofacitinib Citrate [Xeljanz] 5 mg PO BID 01/31/20 Acetaminophen [Tylenol] 1,000 mg PO TID 02/19/20 Furosemide [Lasix] 20 mg PO DAILY 02/19/20 Gabapentin [Neurontin] 400 mg PO DINNER 02/19/20 Potassium Chloride [Klor-Con M10] 10 meq PO DAILY 02/19/20 Insulin Lispro [Humalog KwikPen] See Protocol SC ACHS insuln.pen 02/21/20 Menthol/Lanolin/Calamine/Znox 1 applic TOPICAL 4X/DAY tube 02/21/20 [Calmoseptine Ointment] Surgical History: cholecystectomy, gastric bypass, - - Multiple back surgeries, ?6 Psychiatric History: Anxiety, Depression FURNACE LINER History: No pertinent FURNACE LINER history Lives: Alone Smoking Status: Current every day smoker Alcohol: None Drugs: None - *Family History Paternal History Items: Cancer - Lung CA, tobacco use. Offspring History Items: - - Obesity Maternal History Items: Stroke Review of Systems Unable to obtain accurate/complete ROS d/t: patient is very drowsy VTE Information - Inpt Only VTE Present on Admission: No VTE Pharm Prophylaxis ordered?: Yes Patient Problems: Active and Suspected Problems (Last Reviewed 11/08/18 @ 14:53 by Claire Lewis CNC MAINTENANCE TECHNICIAN, CNC MAINTENANCE TECHNICIAN-C) UTI (urinary tract infection) (Acute) Declining functional status (Acute) - Physical Exam Vitals/I&O's: Vital Signs Temp Pulse Resp BP Pulse Ox 98.9 F 102 H 15 124/81 H 96 05/12/20 00:37 05/12/20 00:37 05/12/20 00:37 05/12/20 00:37 05/12/20 00:37 Oxygen Delivery Method Room Air Weight: 360 lb 7.292 oz Body Mass Index (BMI) 53.2 Finger Stick Blood Glucose 294 General: No apparent distress, Confused, Lethargic HEENT: Atraumatic, PERRLA, EOMI, Normocephalic Oral: Dry Mucosa Neck: Supple, No JVD, Negative Carotid Bruits, Negative Hepatojugular Reflux, No Nodes Lungs: Clear to auscultation, Normal air movement, No rhonchi, No wheeze Cardiovascular: Regular Rhythm, Normal S1, Normal S2, No murmurs, Tachycardic Abdomen: Bowel Sounds Present, Soft, Non Tender, Non-Distended, No Hepato-splenomegaly Extremities: No edema, Capillary Refill Less than 3 Seconds Skin: No rashes, No breakdown Musculoskeletal: No Tenderness to Palpation of Joints or Extremities Lymphatic: No Cervical, Supraclavicular, or Inguinal Adenopathy Neurological: Cranial nerves II-XII grossly intact, Neuro grossly intact, Motor Exam 5/5 strength throughout Psych/Mental Status: Normal Affect, Appropriate, Alert and oriented to time, place, person, mood and affect Microbiology Past 72 Hours 05/11/20 22:50 Mucosa - Nose SARS-CoV-2 Antigen (Rapid) - Final Laboratory Results 05/11/20 22:50: WBC 8.5, RBC 4.06 L, Hgb 11.7 L, Hct 35.5 L, MCV 87.4, MCH 28.8, MCHC 33.0, RDW Std Deviation 58.2 H, RDW Coeff of Ralph 18.5 H, Plt Count 289, MPV 9.8, Immature Gran % (Auto) 0.400, Neut % (Auto) 53.1, Lymph % (Auto) 29.0, [place] % (Auto) 15.3 H, Eos % (Auto) 1.5, Baso % (Auto) 0.7, Absolute Neuts (auto) 4.5, Absolute Lymphs (auto) 2.48, Nucleated RBC % 0 05/11/20 22:50: Sodium 137, Potassium 3.2 L, Chloride 102, Carbon Dioxide 28.0, Anion Gap 7, BUN 4 L, Creatinine 0.81, Estim Creat Clear Calc 82.98, Est GFR (MDRD) Af Amer 95, Est GFR (MDRD) Non-Af 78, BUN/Creatinine Ratio 4.9 L, Glucose 124 H, Calcium 8.7, Troponin I < 0.015 05/11/20 22:50: B-Natriuretic Peptide 18.0 05/11/20 22:50: Total Creatine Kinase 206 H 05/11/20 23:37: Urine Color Radha, Urine Clarity Turbid, Urine pH 6.5, Ur Specific [place] 1.020, Urine Protein 100 H, Urine Glucose (UA) Normal, Urine Ketones 15 H, Urine Occult Blood 250 H, Urine Nitrite Positive H, Urine Bilirubin 1 H, Urine Urobilinogen 8 H, Ur Leukocyte Esterase 500 H, Urine RBC 10-25 SEEN, Urine WBC 25-50 SEEN, Ur Squamous Epith Cells 0 SEEN, Ur Transition Epith Cell 0-5 SEEN, Urine Bacteria 4+, Urine Mucus 0 SEEN Diagnostic Data Chest X-Ray 05/11/20 23:00 IMPRESSION: No acute findings on this portable exam. at 0002 Reported and signed by: Jennifer العلي MD Electronically Signed: Jennifer العلي MD at 0:02 EST Tel , Service support , Current Medications Ceftriaxone Sodium (Rocephin) 1 gm in 50 mls @ 100 mls/hr IV X1 ONE Stop: 05/12/20 00:45 Last Admin: 05/12/20 00:35 Dose: 100 mls/hr Documented by: Sodium Chloride () 250 mls @ 15 mls/hr IV .[id number] PRN PRN Reason: Saline Flush Last Admin: 05/12/20 00:35 Dose: 15 mls/hr Documented by: Assessment/Plan All Active Problems (Last Reviewed 11/08/18 @ 14:53 by Claire Lewis CNC MAINTENANCE TECHNICIAN, CNC MAINTENANCE TECHNICIAN-C) JANESSA (acute kidney injury) (Acute) UTI (urinary tract infection) (Acute) COVID-19 (Acute) Lactic acidosis (Acute) Declining functional status (Acute) Severe sepsis (Acute) Acute respiratory failure with hypoxia (Resolved) Aspiration pneumonia (Resolved) Diarrhea (Resolved) History of Clostridium difficile (Resolved) Overdose (Resolved) Unresponsive episode (Resolved) Acute exacerbation of chronic obstructive pulmonary disease (COPD) (Ruled-out) SIRS with Severe sepsis due to UTI (Ruled-out) Urinary tract infection (Ruled-out) 54 y/o admitted with a complaint of weakness and lethargy, and found to have UTI #Acute metabolic encephalopathy due to UTI admit to med surg started on IV ceftriaxone for UTI; will continue get urine culture hydrate with IVF normal saline at 125cc/hr x 2 bags #UTI: as above #Hypokalemia: K is 3.2. Will replace and monitor #Hypertension: on lisinopril #Hypothyroidism: on synthroid #Type 2 diabetes mellitus: on Januvia. ISS. Accuchecks TUS. DVT prophylaxis: lovenox Inpatient E&M: [id number] Init Hosp L2
[2020-05-12] MEDS: 0.9% Normal Saline 1,000 ML 125 ML IV ×2 (02:54→09:56)
--- NOTE | 2020-05-12 04:42 | NURSING ---
PT IS LETHARGIC ON ARRIVAL TO FLOOR. DOES OPEN EYES BRIEFLY TO VERBAL & TACTILE STIMULI AND DENIES C/O PAIN BUT THEN FALLS BACK TO SLEEP. VITALS STABLE, RA POX 95-97%. PBG=604. HOLDING PO MEDS AT THIS TIME. OBTAINED ORDER FOR IV POTASSIUM AND URINE TOX. WILL CONTINUE TO MONITOR
[2020-05-12 04:55] LABS: Amphetamine Urine VISTA NEGATIVE (<1000 ng/mL); Barbiturate Urine VISTA NEGATIVE (< 200 ng/mL); Benzodiazepine Urine VISTA NEGATIVE (< 200 ng/mL); Cocaine Urine VISTA NEGATIVE (< 300 ng/mL); Ecstacy Urine VISTA NEGATIVE (< 500 ng/mL); Methadone Urine VISTA NEGATIVE (< 300 ng/mL); PCP Urine VISTA NEGATIVE (< 25 ng/mL); THC Urine VISTA NEGATIVE (< 50 ng/mL); Vista UDS pH Range 6
[2020-05-12] MEDS: Potassium Chloride 10mEq/100mL 10 MEQ/100 ML IV.SOLN. 100 MEQ IV BOLUS ×4 (05:07→08:47)
[2020-05-12 05:26] LABS: Absolute Lymphocyte Count 2.39 X10^3/uL (0.83-4.51); Absolute Neutrophil Count 3.7 X10^3/uL (2.0-7.7); Basophil# 0.05 X10^3/uL; Basophil% 0.7 % (0-1); Eosinophil# 0.17 X10^3/uL; Eosinophils% 2.2 % (0-5); Hematocrit 33.1 % (37-47); Hemoglobin 10.5 g/dL (12.0-15.0); Lymphocyte # 2.39 X10^3/ul (4.0); Lymphocyte % 31.5 % (19-41); Mean Corp Hgb Conc 31.7 g/dL (32-36); Mean Corpuscular Hgb 28.4 pg (27.0-32.0); Mean Corpuscular Volume 89.5 fL (81-99); Mean Platelet Vol. 10.3 fl (6.2-12.0); Monocyte# 1.26 X10^3/uL; Monocyte% 16.6 % (0-10); NRBC Flagged by Analyzer 0 % (0-5); Neutrophil # 3.68 X10^3/uL (2.7-7.7); Neutrophil % 48.5 % (47-70); Platelet Count 265 K/mm3 (150-450); RBC Distribution Width CV 18.5 % (11.6-14.6); RBC Distribution Width SD 59.6 fl (35.1-43.9); White Blood Count 7.6 K/mm3 (4.4-11.0)
[2020-05-12 05:51] LABS: Anion Gap 9 (5-15); BUN 5 mg/dL (7-18); BUN/Creat Ratio 8.5 RATIO (10-20); Calcium,Total 8.2 mg/dL (8.5-10.1); Chloride 103 mmol/L (98-107); Creatinine, Serum 0.59 mg/dL (0.55-1.02); EST Glomerular Filtration Rate 113 mL/min (>60); Est Glom Filt Rate - Afr Amer 136 mL/min (>60); Estimated Creatinine Clearance 113.92 ml/min; Glucose 96 mg/dL (74-106); Potassium 2.9 mmol/L (3.5-5.1); Sodium Level 140 mmol/L (136-145)
--- NOTE | 2020-05-12 06:30 | NURSING ---
PT IS MORE ALERT THIS AM. DOES HAVE SOME CONFUSED CONVERSATION AT TIMES BUT IS NOT LETHARGIC. NOTEAM POTASSIUM LEVEL OF 2.9 WAS DRAWN PRIOR TO PT RCVNG IV FORM OF POTASSIUM.
[2020-05-12 06:41] LABS: Bedside Glucose 110 mg/dL (70-110)
[2020-05-12 06:50] LABS: Bedside Glucose 100 mg/dL (70-110)
--- NOTE | 2020-05-12 09:46 | NURSING ---
called [facility] for flu shot info, unable to get that from them, they had no record. and asked for them to bring c pap. they stated she refused to wear it there, but they would have someone bring it on Wednesday.
--- NOTE | 2020-05-12 10:01 | PCM.PROGNOTE ---
Patient Problems: Active and Suspected Problems (Last Reviewed 11/08/18 @ 14:53 by Claire Lewis CUSTOMER SERVICE DRIVER, CUSTOMER SERVICE DRIVER-C) UTI (urinary tract infection) (Acute) Declining functional status (Acute) Subjective: Patient seen and examined. Drowsy however easily arousable. Denies current symptoms or complaints. States she wants to go home. - Physical Exam Vitals/I&O's: Vital Signs Temp Pulse Resp BP Pulse Ox 99.7 F H 103 H 16 129/68 H 95 05/12/20 08:08 05/12/20 09:39 05/12/20 08:08 05/12/20 08:08 05/12/20 08:08 Oxygen Delivery Method Room Air Weight: 343 lb 3.2 oz Body Mass Index (BMI) 50.6 Finger Stick Blood Glucose 294 Intake and Output for Last 24 Hours 05/10/20 05/11/20 05/12/20 23:59 23:59 23:59 Intake Total 1365.42 / 1365.42 Balance 1365.42 / 1365.42 General: Oriented x3, Cooperative, No apparent distress, - - Drowsy HEENT: Atraumatic, PERRLA, EOMI, Normocephalic Neck: Supple, No JVD, Negative Carotid Bruits Lungs: Clear to auscultation, Diminished Cardiovascular: Regular rate, No murmurs Abdomen: Bowel Sounds Present, Soft, Non Tender, Non-Distended, Obese Extremities: No clubbing, No cyanosis, No edema, Capillary Refill Less than 3 Seconds Skin: No rashes, No breakdown Musculoskeletal: No Tenderness to Palpation of Joints or Extremities Neurological: Cranial nerves II-XII grossly intact, Neuro grossly intact Psych/Mental Status: Normal Affect Microbiology Past 72 Hours 05/11/20 22:50 Mucosa - Nose SARS-CoV-2 Antigen (Rapid) - Final Laboratory Results 05/11/20 22:50: WBC 8.5, RBC 4.06 L, Hgb 11.7 L, Hct 35.5 L, MCV 87.4, MCH 28.8, MCHC 33.0, RDW Std Deviation 58.2 H, RDW Coeff of Ralph 18.5 H, Plt Count 289, MPV 9.8, Immature Gran % (Auto) 0.400, Neut % (Auto) 53.1, Lymph % (Auto) 29.0, [place] % (Auto) 15.3 H, Eos % (Auto) 1.5, Baso % (Auto) 0.7, Absolute Neuts (auto) 4.5, Absolute Lymphs (auto) 2.48, Nucleated RBC % 0 05/11/20 22:50: Sodium 137, Potassium 3.2 L, Chloride 102, Carbon Dioxide 28.0, Anion Gap 7, BUN 4 L, Creatinine 0.81, Estim Creat Clear Calc 82.98, Est GFR (MDRD) Af Amer 95, Est GFR (MDRD) Non-Af 78, BUN/Creatinine Ratio 4.9 L, Glucose 124 H, Calcium 8.7, Troponin I < 0.015 05/11/20 22:50: B-Natriuretic Peptide 18.0 05/11/20 22:50: Total Creatine Kinase 206 H 05/11/20 23:37: Urine Color Radha, Urine Clarity Turbid, Urine pH 6.5, Ur Specific [place] 1.020, Urine Protein 100 H, Urine Glucose (UA) Normal, Urine Ketones 15 H, Urine Occult Blood 250 H, Urine Nitrite Positive H, Urine Bilirubin 1 H, Urine Urobilinogen 8 H, Ur Leukocyte Esterase 500 H, Urine RBC 10-25 SEEN, Urine WBC 25-50 SEEN, Ur Squamous Epith Cells 0 SEEN, Ur Transition Epith Cell 0-5 SEEN, Urine Bacteria 4+, Urine Mucus 0 SEEN 05/11/20 23:37: Urine Opiates Screen NEGATIVE, Urine Methadone Screen NEGATIVE, Ur Barbiturates Screen NEGATIVE, Ur Phencyclidine Scrn NEGATIVE, Ur Amphetamines Screen NEGATIVE, U Methamphetamin-MDMA NEGATIVE, U Benzodiazepines Scrn NEGATIVE, Urine Cocaine Screen NEGATIVE, U Cannabinoids Screen NEGATIVE, Ur Drug Screen Comment 05/12/20 04:38: POC Glucose 110 05/12/20 04:45: WBC 7.6, RBC 3.70 L, Hgb 10.5 L, Hct 33.1 L, MCV 89.5, MCH 28.4, MCHC 31.7 L, RDW Std Deviation 59.6 H, RDW Coeff of Ralph 18.5 H, Plt Count 265, MPV 10.3, Immature Gran % (Auto) 0.500, Neut % (Auto) 48.5, Lymph % (Auto) 31.5, [place] % (Auto) 16.6 H, Eos % (Auto) 2.2, Baso % (Auto) 0.7, Absolute Neuts (auto) 3.7, Absolute Lymphs (auto) 2.39, Nucleated RBC % 0 05/12/20 04:45: Sodium 140, Potassium 2.9 L, Chloride 103, Carbon Dioxide 28.0, Anion Gap 9, BUN 5 L, Creatinine 0.59, Estim Creat Clear Calc 113.92, Est GFR (MDRD) Af Amer 136, Est GFR (MDRD) Non-Af 113, BUN/Creatinine Ratio 8.5 L, Glucose 96, Calcium 8.2 L 05/12/20 06:43: POC Glucose 100 Current Medications Acetaminophen (Acetaminophen 325 Mg Tablet) 650 mg PO Q6H PRN PRN PRN Reason: Pain Score 1-10/Temp > 100.7 F Sodium Chloride () 250 mls @ 15 mls/hr IV .[id number] PRN PRN Reason: Saline Flush Last Infusion: 05/12/20 06:27 Dose: 0 mls/hr Documented by: Sodium Chloride () 1,000 mls @ 125 mls/hr IV .Q8H MAX Stop: 05/12/20 18:29 Last Infusion: 05/12/20 09:59 Dose: 0 mls/hr Documented by: Cefepime HCl 2 gm/ Sodium (Chloride) 100 mls @ 200 mls/hr IV Q12 MAX Last Admin: 05/12/20 09:56 Dose: 200 mls/hr Documented by: Ondansetron HCl (Ondansetron 4 Mg/2 Ml Vial) 4 mg IV Q8H PRN PRN PRN Reason: NAUSEA/VOMITING Oxycodone HCl (Oxycodone 5 Mg Tablet) 5 mg PO Q4H PRN PRN PRN Reason: Pain Score 4-5 Medical Necessity - Tobacco Use Smoking Status: Current every day smoker Assessment/Plan All Active Problems (Last Reviewed 11/08/18 @ 14:53 by Claire Lewis CUSTOMER SERVICE DRIVER, CUSTOMER SERVICE DRIVER-C) JANESSA (acute kidney injury) (Acute) UTI (urinary tract infection) (Acute) COVID-19 (Acute) Lactic acidosis (Acute) Declining functional status (Acute) Severe sepsis (Acute) Acute respiratory failure with hypoxia (Resolved) Aspiration pneumonia (Resolved) Diarrhea (Resolved) History of Clostridium difficile (Resolved) Overdose (Resolved) Unresponsive episode (Resolved) Acute exacerbation of chronic obstructive pulmonary disease (COPD) (Ruled-out) SIRS with Severe sepsis due to UTI (Ruled-out) Urinary tract infection (Ruled-out) 1. Acute metabolic encephalopathy secondary to acute UTI-prior urine cultures grew Pseudomonas. Continue IV cefepime. Urine culture pending. 2. Hypokalemia-replace per protocol, trend BMP. 3. Type 2 diabetes mellitus-hold oral regimen. Accu-Cheks with sliding scale insulin. 4. Hypertension-stable, continue Lasix. 5. Hyperlipidemia-continue statin. 6. Hypothyroidism-continue Synthroid. 7. GERD-continue PPI. 8. Rheumatoid arthritis/psoriatic arthritis and psoriasis-on Xeljanz, Plaquenil. 9. Depression/anxiety-on amitriptyline, duloxetine, quetiapine, as needed Vistaril. 10. Tobacco dependence- encouraged cessation. 11. Morbid obesity- encouraged diet and lifestyle modifications. DVT prophylaxis-Lovenox subcu This patient was seen by BYRON Navarro under the supervision of Dr. Benjamin.
[2020-05-12 11:36] LABS: Bedside Glucose 99 mg/dL (70-110)
[2020-05-12] MEDS: Acetaminophen 325 MG Tablet 650 MG PO (14:37)
[2020-05-12] MEDS: Potassium Chloride Oral Tablet 20 MEQ 40 MEQ PO (14:39)
[2020-05-12 15:51] LABS: Bedside Glucose 121 mg/dL (70-110)
[2020-05-12] MEDS: oxyCODONE 5 MG Tablet PO (20:24)
[2020-05-12] MEDS: Atorvastatin Calcium 20 MG Tablet PO (21:16)
[2020-05-12] MEDS: QUEtiapine 100 MG Tablet 300 MG PO (21:17)
[2020-05-12 21:25] LABS: Bedside Glucose 105 mg/dL (70-110)
[2020-05-13 02:28] VITALS: BP 137/63; PULSE 101; RESP 18; TEMP 36.9; O2SAT 94
[2020-05-13] MEDS: Enoxaparin 40 MG/0.4 ML Syringe SC (06:21)
[2020-05-13] MEDS: Levothyroxine 150 MCG Tablet PO (06:21)
[2020-05-13 06:41] LABS: Bedside Glucose 95 mg/dL (70-110)
[2020-05-13 07:38] VITALS: BP 119/64; PULSE 103; RESP 18; TEMP 36.9; O2SAT 93
[2020-05-13] MEDS: Potassium Chloride Oral Tablet 20 MEQ 40 MEQ PO (07:40)
[2020-05-13] MEDS: Hydroxychloroquine 200 MG Tablet 300 MG PO (07:41)
[2020-05-13] MEDS: Aspirin 81 MG TAB.CHEW PO (08:00)
[2020-05-13 08:28] LABS: Hematocrit 31.9 % (37-47); Hemoglobin 10.4 g/dL (12.0-15.0); Mean Corp Hgb Conc 32.6 g/dL (32-36); Mean Corpuscular Hgb 28.9 pg (27.0-32.0); Mean Corpuscular Volume 88.6 fL (81-99); Mean Platelet Vol. 9.7 fl (6.2-12.0); Platelet Count 191 K/mm3 (150-450); RBC Distribution Width CV 18.9 % (11.6-14.6); White Blood Count 6.3 K/mm3 (4.4-11.0)
[2020-05-13 08:44] LABS: Anion Gap 7 (5-15); BUN 4 mg/dL (7-18); BUN/Creat Ratio 7.1 RATIO (10-20); Calcium,Total 7.7 mg/dL (8.5-10.1); Chloride 108 mmol/L (98-107); Creatinine, Serum 0.56 mg/dL (0.55-1.02); EST Glomerular Filtration Rate 120 mL/min (>60); Est Glom Filt Rate - Afr Amer 145 mL/min (>60); Estimated Creatinine Clearance 120.02 ml/min; Glucose 114 mg/dL (74-106); Potassium 3.8 mmol/L (3.5-5.1); Sodium Level 137 mmol/L (136-145)
[2020-05-13] MEDS: Amitriptyline 100 MG Tablet PO (09:15)
[2020-05-13] MEDS: Pantoprazole Sodium 20 MG Tablet PO (09:15)
[2020-05-13] MEDS: Furosemide 20 MG Tablet PO (09:15)
[2020-05-13] MEDS: DULoxetine Hcl 60 MG Capsule PO (09:15)
--- NOTE | 2020-05-13 09:37 | PCM.DC ---
- Discharge Diagnoses Current Active Problems: Current Active and Chronic Problems (Last Reviewed 11/08/18 @ 14:53 by Claire Lewis GLUCOSE AND SYRUP WEIGHER, GLUCOSE AND SYRUP WEIGHER-C) UTI (urinary tract infection) (Acute) Declining functional status (Acute) You will use the following diet at home:: Calorie/Carbohydrate Controlled (specify 1200, 1400, etc) Discharge Activity: Return to Normal Activity Call your doctor if you observe: Fever of 101 or Higher, Shortness of breath, Dizziness, Fainting spells, Chest pain Additional Instructions: Continue cefdinir 300 mg twice daily for 10 days as prescribed 05/11/2020. Allergies/Adverse Reactions: Allergies fentanyl Allergy (Verified 05/11/20 22:53) Rash Iodinated Contrast Media [Iodinated Contrast Media - IV Dye] Allergy (Verified 05/11/20 22:53) Hives CAN BE PRE-MEDICATED levofloxacin [From Levaquin] Allergy (Verified 05/11/20 22:53) Rash nitrofurantoin [From Macrobid] Allergy (Verified 05/11/20 22:53) Rash Sulfa (Sulfonamide Antibiotics) Allergy (Verified 05/11/20 22:53) Itching Medications to take at Discharge Duloxetine HCl 60 mg PO DAILY 08/28/15 Levothyroxine [Synthroid] 150 mcg PO DAILY 08/28/15 Hydroxychloroquine [Plaquenil] 300 mg PO DAILYCM 06/05/18 cycloBENZAPRine HCl [Flexeril] 10 mg PO BID 06/05/18 Amitriptyline HCl [Elavil] 100 mg PO DAILY 01/31/20 Aspirin [Aspirin, Baby] 81 mg PO DAILY@0800 01/31/20 Cholecalciferol (Vitamin D3) [Vitamin D3] 50 mcg PO DAILY 01/31/20 Cyclobenzaprine HCl 5 mg PO DINNER 01/31/20 Fluticasone/Vilanterol [Breo Ellipta 200-25 Mcg INH] 1 puff INHALATION DAILY 01/31/20 Gabapentin 800 mg PO DAILY 01/31/20 Gabapentin 800 mg PO DINNER 01/31/20 Hydroxyzine Pamoate [Vistaril] 50 mg PO 4X/DAY 01/31/20 Melatonin 10 mg PO QHS 01/31/20 Omeprazole [Prilosec] 20 mg PO DAILY 01/31/20 Quetiapine Fumarate 300 mg PO QHS 01/31/20 Simvastatin 40 mg PO QHS 01/31/20 Sitagliptin Phosphate [Januvia] 100 mg PO DAILY 01/31/20 Tofacitinib Citrate [Xeljanz] 5 mg PO BID 01/31/20 Acetaminophen [Tylenol] 1,000 mg PO TID 02/19/20 Furosemide [Lasix] 20 mg PO DAILY 02/19/20 Gabapentin [Neurontin] 400 mg PO DINNER 02/19/20 Potassium Chloride [Klor-Con M10] 10 meq PO DAILY 02/19/20 Ascorbic Acid [Vitamin C] 500 mg PO DAILY 05/12/20 Cefdinir 300 mg PO BID 05/12/20 Ipratropium/Albuterol Respimat [Combivent Respimat Inhal [place]] 1 puff INHALATION BID 05/12/20 L.acidoph,Paracasei, B.lactis [Probiotic] 1 ea PO DAILY 05/12/20 Oxybutynin [Ditropan] 5 mg PO DAILY 05/12/20 Zinc Sulfate 220 mg PO DAILY 05/12/20 Primary Care Physician: Fredy Walsh MD [Primary Care Provider] - Please follow up with your Primary Care Physician in: 3-5 Days Test Results: Test results from this visit will be discussed in further detail at your follow-up appointment, if applicable. Proposed Discharge Date: 05/13/20
--- NOTE | 2020-05-13 09:41 | DS.PCM_ITS ---
<GerardNevin MANAGER OFFICE SERVICES - Last Filed: 05/13/20 09:46> Discharge Date and Diagnosis - Problem List Patient Problems: Active and Suspected Problems (Last Reviewed 11/08/18 @ 14:53 by Claire Lewis MANAGER OFFICE SERVICES, MANAGER OFFICE SERVICES-C) UTI (urinary tract infection) (Acute) Declining functional status (Acute) Date of Admission: 05/12/20 Date of Discharge: 05/13/20 - Primary Discharge Diagnosis Acute Problems: Active Problems (Last Reviewed 11/08/18 @ 14:53 by Claire Lewis MANAGER OFFICE SERVICES, MANAGER OFFICE SERVICES-C) 1. Acute metabolic encephalopathy secondary to acute Klebsiella UTI 2. Hypokalemia 3. Type 2 diabetes mellitus 4. Hypertension 5. Hyperlipidemia 6. Hypothyroidism 7. GERD 8. Rheumatoid arthritis/psoriatic arthritis and psoriasis 9. Depression/anxiety 10. Tobacco dependence 11. Morbid obesity - Secondary Discharge Diagnosis Chronic Problems: Chronic Problems (Last Reviewed 11/08/18 @ 14:53 by Claire Lewis MANAGER OFFICE SERVICES, MANAGER OFFICE SERVICES-C) Bronchiectasis (Chronic) Chronic obstructive lung disease (Chronic) Cigarette smoker (Chronic) Rheumatoid arthritis (Chronic) Chronic back pain (Chronic) Obesity, morbid, BMI 50 or higher (Chronic) Drug-seeking behavior (Chronic) Diabetes mellitus, type II (Chronic) Psoriatic arthritis (Chronic) HLD (hyperlipidemia) (Chronic) Hypothyroidism (Chronic) Anxiety and depression (Chronic) GERD (gastroesophageal reflux disease) (Chronic) HTN (hypertension) (Chronic) Hospital Course and Treatment Imaging Results: Diagnostic Data Chest X-Ray 05/11/20 23:00 IMPRESSION: No acute findings on this portable exam. at 0002 Reported and signed by: Jennifer العلي MD Electronically Signed: Jennifer العلي MD at 0:02 EST Tel , Service support , Operations: None Procedures: None Summary of Care Provided: The patient is a 54 year old F admitted 05/12/2020 due to weakness and lethargy. 1. Acute metabolic encephalopathy secondary to acute complicated Klebsiella UTI-urine culture grew Klebsiella, pansensitive. Patient was prescribed cefdinir 300 mg twice daily on 05/11/2020, day of admission. Continue at discharge to complete 10-day course. Follow-up with PCP in 1 week. 2. Hypokalemia-replaced per protocol, resolved. 3. Type 2 diabetes mellitus-continue home oral regimen. 4. Hypertension-stable, continue Lasix. 5. Hyperlipidemia-continue statin. 6. Hypothyroidism-continue Synthroid. 7. GERD-continue PPI. 8. Rheumatoid arthritis/psoriatic arthritis and psoriasis-on Xeljanz, Plaquenil. 9. Depression/anxiety-on amitriptyline, duloxetine, quetiapine, as needed Vistaril. 10. Tobacco dependence- encouraged cessation. 11. Morbid obesity- encouraged diet and lifestyle modifications. General: Alert, Oriented x3, Cooperative, No apparent distress HEENT: Atraumatic, PERRLA, EOMI, Normocephalic Neck: Supple, No JVD, Negative Carotid Bruits Lungs: Clear to auscultation, Diminished Cardiovascular: Regular rate, No murmurs Abdomen: Bowel Sounds Present, Soft, Non Tender, Non-Distended, Obese Extremities: No clubbing, No cyanosis, No edema, Capillary Refill Less than 3 Seconds Skin: No rashes, No breakdown Musculoskeletal: No Tenderness to Palpation of Joints or Extremities Neurological: Cranial nerves II-XII grossly intact, Neuro grossly intact Psych/Mental Status: Normal Affect Patient seen and examined prior to discharge. Physical assessment as noted above. Patient is stable for discharge with follow up recommendations as noted above. This patient was seen by BYRON Navarro under the supervision of Dr. Jose. Patient Problems: Active and Suspected Problems (Last Reviewed 11/08/18 @ 14:53 by Claire Lewis NP, MANAGER OFFICE SERVICES-C) UTI (urinary tract infection) (Acute) Declining functional status (Acute) - Physical Exam Vitals/I&O's: Vital Signs Temp Pulse Resp BP Pulse Ox 98.5 F 103 H 18 119/64 93 05/13/20 07:38 05/13/20 07:38 05/13/20 07:38 05/13/20 07:38 05/13/20 07:38 Oxygen Delivery Method Room Air Weight: 343 lb 4.156 oz Body Mass Index (BMI) 50.6 Finger Stick Blood Glucose 294 Intake and Output for Last 24 Hours 05/11/20 05/12/20 05/13/20 23:59 23:59 23:59 Intake Total 1765.42 / 1765.42 Output Total 200 / 200 Balance 1565.42 / 1565.42 Microbiology Past 72 Hours 05/11/20 23:37 Interface Orders Urine Culture - Final Klebsiella oxytoca 05/11/20 22:50 Mucosa - Nose SARS-CoV-2 Antigen (Rapid) - Final Laboratory Results 05/12/20 11:05: POC Glucose 99 05/12/20 15:45: POC Glucose 121 H 05/12/20 21:15: POC Glucose 105 05/13/20 06:20: POC Glucose 95 05/13/20 08:20: WBC 6.3, RBC 3.60 L, Hgb 10.4 L, Hct 31.9 L, MCV 88.6, MCH 28.9, MCHC 32.6, RDW Std Deviation 60.0 H, RDW Coeff of Ralph 18.9 H, Plt Count 191, MPV 9.7 05/13/20 08:20: Sodium 137, Potassium 3.8, Chloride 108 H, Carbon Dioxide 22.0, Anion Gap 7, BUN 4 L, Creatinine 0.56, Estim Creat Clear Calc 120.02, Est GFR (MDRD) Af Amer 145, Est GFR (MDRD) Non-Af 120, BUN/Creatinine Ratio 7.1 L, Glucose 114 H, Calcium 7.7 L Current Medications Acetaminophen (Acetaminophen 325 Mg Tablet) 650 mg PO Q6H PRN PRN PRN Reason: Pain Score 1-10/Temp > 100.7 F Last Admin: 05/12/20 14:37 Dose: 650 mg Documented by: Amitriptyline HCl (Amitriptyline 100 Mg Tablet) 100 mg PO DAILY [facility] Last Admin: 05/13/20 09:15 Dose: 100 mg Documented by: Aspirin (Aspirin 81 Mg Tab.Chew) 81 mg PO DAILY@0800 [facility] Last Admin: 05/13/20 08:00 Dose: 81 mg Documented by: Atorvastatin Calcium (Atorvastatin Calcium 20 Mg Tablet) 20 mg PO QHS [facility] Last Admin: 05/12/20 21:16 Dose: 20 mg Documented by: Duloxetine HCl (Duloxetine Hcl 60 Mg Capsule) 60 mg PO DAILY [facility] Last Admin: 05/13/20 09:15 Dose: 60 mg Documented by: Enoxaparin Sodium (Enoxaparin 40 Mg/0.4 Ml Syringe) 40 mg SC DAILY@0600 [facility] Last Admin: 05/13/20 06:21 Dose: 40 mg Documented by: Furosemide (Furosemide 20 Mg Tablet) 20 mg PO DAILY [facility] Last Admin: 05/13/20 09:15 Dose: 20 mg Documented by: Hydroxychloroquine Sulfate ([facility]xychloroquine 200 Mg Tablet) [facility] Last Admin: 05/13/20 07:41 Dose: 300 mg Documented by: Sodium Chloride () 250 mls @ 15 mls/hr IV .[id number] PRN PRN Reason: Saline Flush Last Infusion: 05/12/20 06:27 Dose: 0 mls/hr Documented by: Cefepime HCl 2 gm/ Sodium (Chloride) 100 mls @ 200 mls/hr IV Q12 [facility] Last Admin: 05/13/20 09:14 Dose: 200 mls/hr Documented by: Insulin Human Lispro (Insulin Lispro 100 Unit/Ml Insuln.Pen) 0 unit SC ACHS [facility]; Protocol Last Admin: 05/13/20 06:20 Dose: Not Given Documented by: Levothyroxine Sodium (Levothyroxine 150 Mcg Tablet) 150 mcg PO DAILY@0600 [facility] Last Admin: 05/13/20 06:21 Dose: 150 mcg Documented by: Ondansetron HCl (Ondansetron 4 Mg/2 Ml Vial) 4 mg IV Q8H PRN PRN PRN Reason: NAUSEA/VOMITING Oxybutynin Chloride (Oxybutynin 5 Mg Tablet) 5 mg PO DAILY [facility] Pantoprazole Sodium (Pantoprazole Sodium 20 Mg Tablet) 20 mg PO DAILY [facility] Last Admin: 05/13/20 09:15 Dose: 20 mg Documented by: Potassium Chloride (Potassium Chloride Oral Tablet 20 Meq) [address] [facility] [facility] Last Admin: 05/13/20 07:40 Dose: 40 meq Documented by: Quetiapine Fumarate (Quetiapine 100 Mg Tablet) 300 mg PO QHS [facility] Last Admin: 05/12/20 21:17 Dose: 300 mg Documented by: Discharge Diet: 1800 Calorie Control Diet, Carb Control Diet Discharge Activity: Return to Normal Activity Call your doctor if you observe: Fever of 101 or Higher, Shortness of breath, Dizziness, Fainting spells, Chest pain Home Medications: Medications to take at Discharge Duloxetine HCl 60 mg PO DAILY 08/28/15 Levothyroxine [Synthroid] 150 mcg PO DAILY 08/28/15 Hydroxychloroquine [Plaquenil] 300 mg PO DAILYCM 06/05/18 cycloBENZAPRine HCl [Flexeril] 10 mg PO BID 06/05/18 Amitriptyline HCl [Elavil] 100 mg PO DAILY 01/31/20 Aspirin [Aspirin, Baby] 81 mg PO DAILY@0800 01/31/20 Cholecalciferol (Vitamin D3) [Vitamin D3] 50 mcg PO DAILY 01/31/20 Cyclobenzaprine HCl 5 mg PO DINNER 01/31/20 Fluticasone/Vilanterol [Breo Ellipta 200-25 Mcg INH] 1 puff INHALATION DAILY 01/31/20 Gabapentin 800 mg PO DAILY 01/31/20 Gabapentin 800 mg PO DINNER 01/31/20 Hydroxyzine Pamoate [Vistaril] 50 mg PO 4X/DAY 01/31/20 Melatonin 10 mg PO QHS 01/31/20 Omeprazole [Prilosec] 20 mg PO DAILY 01/31/20 Quetiapine Fumarate 300 mg PO QHS 01/31/20 Simvastatin 40 mg PO QHS 01/31/20 Sitagliptin Phosphate [Januvia] 100 mg PO DAILY 01/31/20 Tofacitinib Citrate [Xeljanz] 5 mg PO BID 01/31/20 Acetaminophen [Tylenol] 1,000 mg PO TID 02/19/20 Furosemide [Lasix] 20 mg PO DAILY 02/19/20 Gabapentin [Neurontin] 400 mg PO DINNER 02/19/20 Potassium Chloride [Klor-Con M10] 10 meq PO DAILY 02/19/20 Ascorbic Acid [Vitamin C] 500 mg PO DAILY 05/12/20 Cefdinir 300 mg PO BID 05/12/20 Ipratropium/Albuterol Respimat [Combivent Respimat Inhal [place]] 1 puff INHALATION BID 05/12/20 L.acidoph,Paracasei, B.lactis [Probiotic] 1 ea PO DAILY 05/12/20 Oxybutynin [Ditropan] 5 mg PO DAILY 05/12/20 Zinc Sulfate 220 mg PO DAILY 05/12/20 Primary Care Physician: Fredy Walsh MD [Primary Care Provider] - Please follow up with your Primary Care Physician in: 3-5 Days Disposition: Asstd Living/Non-Skill [place] Minutes spent on discharge:: 35 Patient Condition:: Stable Medical Necessity - Tobacco Use Smoking Status: Current every day smoker Meaningful Use Info Meaningful Use Diagnoses (Choose all that apply): None applicable <ZoyaannaTk burden - Last Filed: 05/13/20 14:28> Discharge Date and Diagnosis - Primary Discharge Diagnosis Acute Problems: Active Problems (Last Reviewed 11/08/18 @ 14:53 by Claire Lewis MANAGER OFFICE SERVICES, MANAGER OFFICE SERVICES-C) UTI (urinary tract infection) (Acute) Declining functional status (Acute) - Secondary Discharge Diagnosis Chronic Problems: Chronic Problems (Last Reviewed 11/08/18 @ 14:53 by Claire Lewis MANAGER OFFICE SERVICES, MANAGER OFFICE SERVICES-C) Bronchiectasis (Chronic) Chronic obstructive lung disease (Chronic) Cigarette smoker (Chronic) Rheumatoid arthritis (Chronic) Chronic back pain (Chronic) Obesity, morbid, BMI 50 or higher (Chronic) Drug-seeking behavior (Chronic) Diabetes mellitus, type II (Chronic) Psoriatic arthritis (Chronic) HLD (hyperlipidemia) (Chronic) Hypothyroidism (Chronic) Anxiety and depression (Chronic) GERD (gastroesophageal reflux disease) (Chronic) HTN (hypertension) (Chronic) Hospital Course and Treatment Operations: None Procedures: None Summary of Care Provided: Patient seen and examined independently. Data reviewed. I agree with the above note by the physician appeals assistant. The patient is a 54 year old F presents with weakness and lethargy. Patient was found to have a UTI which came back showing Klebsiella oxytoca. Patient will be discharged to continue with the cefdinir. [] - Physical Exam Vitals/I&O's: Vital Signs Temp Pulse Resp BP Pulse Ox 36.7 C 70 18 118/68 94 05/13/20 13:22 05/13/20 13:22 05/13/20 13:22 05/13/20 13:22 05/13/20 13:22 Oxygen Delivery Method Room Air Weight: 155.7 kg Body Mass Index (BMI) 50.6 Finger Stick Blood Glucose 294 Intake and Output for Last 24 Hours 05/11/20 05/12/20 05/13/20 23:59 23:59 23:59 Intake Total 1765.42 / 1765.42 900 / 900 Output Total 200 / 200 Balance 1565.42 / 1565.42 900 / 900 General: Alert, - - listless. afebrile HEENT: Atraumatic, Normocephalic Oral: Moist Mucosa, No Gingival or Mucosal Lesions/ Ulcerations Neck: No Nodes, Thyroid Normal Size and Texture Lungs: Clear to auscultation, Normal air movement, No rhonchi, No wheeze, No rales Cardiovascular: Regular rate, Regular Rhythm, Normal S1, Normal S2, No murmurs Abdomen: Bowel Sounds Present, Soft, Non Tender, Non-Distended, No Hepato-splenomegaly Extremities: No edema, No Calf Tenderness Psych/Mental Status: Normal Affect, Appropriate Microbiology Past 72 Hours 05/11/20 23:37 Interface Orders Urine Culture - Final Klebsiella oxytoca 05/11/20 22:50 Mucosa - Nose SARS-CoV-2 Antigen (Rapid) - Final Laboratory Results 05/12/20 15:45: POC Glucose 121 H 05/12/20 21:15: POC Glucose 105 05/13/20 06:20: POC Glucose 95 05/13/20 08:20: WBC 6.3, RBC 3.60 L, Hgb 10.4 L, Hct 31.9 L, MCV 88.6, MCH 28.9, MCHC 32.6, RDW Std Deviation 60.0 H, RDW Coeff of Ralph 18.9 H, Plt Count 191, MPV 9.7 05/13/20 08:20: Sodium 137, Potassium 3.8, Chloride 108 H, Carbon Dioxide 22.0, Anion Gap 7, BUN 4 L, Creatinine 0.56, Estim Creat Clear Calc 120.02, Est GFR (MDRD) Af Amer 145, Est GFR (MDRD) Non-Af 120, BUN/Creatinine Ratio 7.1 L, G lucose 114 H, Calcium 7.7 L 05/13/20 11:15: POC Glucose 124 H Discharge Diet: 1800 Calorie Control Diet, Carb Control Diet Discharge Activity: Return to Normal Activity Call your doctor if you observe: Fever of 101 or Higher, Shortness of breath, Dizziness, Fainting spells, Chest pain Disposition: Asstd Living/Non-Skill [place] Minutes spent on discharge:: 35 Patient Condition:: Stable Medical Necessity - Tobacco Use Smoking Status: Current every day smoker Meaningful Use Info Meaningful Use Diagnoses (Choose all that apply): None applicable Inpatient E&M: 55597 Disch Hosp
--- NOTE | 2020-05-13 10:11 | PHA.DC.MR ---
Pharmacy Service has performed discharge medication reconciliation for this patient. The patient's discharge medication list was reviewed for discrepancies and discrepancies were resolved. Home Medications Duloxetine HCl 60 mg PO DAILY 08/28/15 Levothyroxine [Synthroid] 150 mcg PO DAILY 08/28/15 Hydroxychloroquine [Plaquenil] 300 mg PO DAILYCM 06/05/18 cycloBENZAPRine HCl [Flexeril] 10 mg PO BID 06/05/18 Amitriptyline HCl [Elavil] 100 mg PO DAILY 01/31/20 Aspirin [Aspirin, Baby] 81 mg PO DAILY@0800 01/31/20 Cholecalciferol (Vitamin D3) [Vitamin D3] 50 mcg PO DAILY 01/31/20 Cyclobenzaprine HCl 5 mg PO DINNER 01/31/20 Fluticasone/Vilanterol [Breo Ellipta 200-25 Mcg INH] 1 puff INHALATION DAILY 01/31/20 Gabapentin 800 mg PO DAILY 01/31/20 Gabapentin 800 mg PO DINNER 01/31/20 Hydroxyzine Pamoate [Vistaril] 50 mg PO 4X/DAY 01/31/20 Melatonin 10 mg PO QHS 01/31/20 Omeprazole [Prilosec] 20 mg PO DAILY 01/31/20 Quetiapine Fumarate 300 mg PO QHS 01/31/20 Simvastatin 40 mg PO QHS 01/31/20 Sitagliptin Phosphate [Januvia] 100 mg PO DAILY 01/31/20 Tofacitinib Citrate [Xeljanz] 5 mg PO BID 01/31/20 Acetaminophen [Tylenol] 1,000 mg PO TID 02/19/20 Furosemide [Lasix] 20 mg PO DAILY 02/19/20 Gabapentin [Neurontin] 400 mg PO DINNER 02/19/20 Potassium Chloride [Klor-Con M10] 10 meq PO DAILY 02/19/20 Ascorbic Acid [Vitamin C] 500 mg PO DAILY 05/12/20 Cefdinir 300 mg PO BID 05/12/20 Ipratropium/Albuterol Respimat [Combivent Respimat Inhal [place]] 1 puff INHALATION BID 05/12/20 L.acidoph,Paracasei, B.lactis [Probiotic] 1 ea PO DAILY 05/12/20 Oxybutynin [Ditropan] 5 mg PO DAILY 05/12/20 Zinc Sulfate 220 mg PO DAILY 05/12/20
--- NOTE | 2020-05-13 10:21 | CASEMGMT ---
Addendum entered by Katherin Tavares 05/13/20 11:56: Per previous notes, pt has CM Justen [place] through [facility]. SW placed a call to Justen and updated him on discharge back to [facility] today. Addendum entered by Katherin Tavares 05/13/20 11:23: SW reviewed PT/OT, pt was assist of two for transfers/bed mobility. YUSUF placed a call to [facility] and spoke with Bella. Bella states pt was active with therapy at [facility], is able to return. Bella states it is all behavior. Bella states pt will walk to main office, sit in chair and then state she can't get up. Bella again confirms pt is able to return to [facility]. SW in to speak with pt. SW introduced self and role at [facility]. Pt confirms she is from [facility] and will be returning. Pt states she would like to be transported via wheelchair van. SW informed pt transportation will be arranged and then pt will be updated. Pt gave this worker permission to call her mother to also provide update. YUSUF accessed trip assist and arranged transportation via wheelchair van for 1:00pm. SW did request wide wheelchair van for pt. Transportation form completed and placed on [facility] folder and copy on pt's chart. RN updated on transportation time. Pt updated. Althea at [facility] updated on transportation time. YUSUF placed a call to pt's mother Mariam, no answer, no identifying information on Mariam's voicemail, SW requested call back to update. Plan: Return to [facility] with [facility] transporting pt via wheelchair van at 1:00pm Original Note: Social Work Note Pt is listed as being from [facility]. YUSUF placed a call to Bella at [facility] and updated her pt will discharge back today. YUSUF faxed updated clinicals including COVID screening tool and COVID test to [facility] and faxed discharge paperwork to [facility]. YUSUF spoke with PT/OT, will fax PT/OT evaluations to [facility]. Plan: Likely back to [facility], will fax PT/OT to [facility] to confirm they are able to accept pt back. Katherin Tavares POSITION CLERK, MANAGER ORGANIZATIONAL
[2020-05-13] MEDS: Oxybutynin 5 MG Tablet PO (10:25)
[2020-05-13 11:21] LABS: Bedside Glucose 124 mg/dL (70-110)
[2020-05-13 13:22] VITALS: BP 118/68; PULSE 70; RESP 18; TEMP 36.7; O2SAT 94
== END 2020-05-13 13:27 | disposition home or self-care (01) | DRG 689 ==
LOC: ED 05-12 00:43 → MS3 05-12 07:04
PROVIDERS: Family Medicine; Nurse Practitioner Family; Admitting Provider Student in an Organized Health Care Education/Training Program; Emergency Provider Emergency Medicine; PCP Family Medicine
DX: N39.0 Urinary tract infection, site not specified (principal); G93.41 Metabolic encephalopathy; Z68.43 Body mass index [BMI] 50.0-59.9, adult; B96.1 Klebsiella pneumoniae [K. pneumoniae] as the cause of diseases classified elsewhere; E87.6 Hypokalemia; J47.9 Bronchiectasis, uncomplicated; M06.9 Rheumatoid arthritis, unspecified; L40.50 Arthropathic psoriasis, unspecified; E11.9 Type 2 diabetes mellitus without complications; I10 Essential (primary) hypertension; E78.5 Hyperlipidemia, unspecified; E03.9 Hypothyroidism, unspecified; M54.9 Dorsalgia, unspecified; G89.29 Other chronic pain; E66.01 Morbid (severe) obesity due to excess calories; K21.9 Gastro-esophageal reflux disease without esophagitis; R29.700 NIHSS score 0; R06.02 Shortness of breath; F32.9 Major depressive disorder, single episode, unspecified; F41.9 Anxiety disorder, unspecified; F17.200 Nicotine dependence, unspecified, uncomplicated; Z79.4 Long term (current) use of insulin; Z20.822 Contact with and (suspected) exposure to COVID-19; Z79.82 Long term (current) use of aspirin; Z79.890 Hormone replacement therapy; Z79.899 Other long term (current) drug therapy; Z87.440 Personal history of urinary (tract) infections; Z98.84 Bariatric surgery status
CPT/HCPCS: 36415; 71045; 80048; 80307; 81001; 82550; 82962; 83880; 84484; 85025; 85027; 87077; 87086; 87088; 87186; 87426; 93005; 96361; 96365; 96366; 96367; 96372; 97162; 97166; 97802; 99218; 99285; 99406; J7030; J7050; P9612; A4216; G0378

== ENCOUNTER 2020-05-14 11:43 | Observation (INO) | payer MEDICARE, MEDICAID, SELFPAY ==
[2020-05-12 01:45] VITALS: BMI 50.6
[2020-05-14 11:44] VITALS: BP 122/103; PULSE 97; RESP 18; TEMP 36.6; O2SAT 98; BMI 54.6
--- NOTE | 2020-05-14 12:01 | RAD_ITS ---
STUDY: X-RAY - RIGHT SHOULDER REASON FOR EXAM: Female, 54 years old. FALL. BEST PICTURES OBTAINABLE DUE TO PATIENTS COOPERATION. TECHNIQUE: 3 view(s) of the shoulder. COMPARISON: None. FINDINGS: There is mild degenerative arthrosis of the glenohumeral articulation. Normal acromioclavicular joint. Normal acromion. Normal humeral head and visualized proximal humerus. The soft tissue structures are unremarkable. Normal visualized pulmonary apex. RAD/Shoulder min 2 Views IMPRESSION: Degenerative changes. No acute abnormality is seen. Electronically Signed: Zander Bethea MD at 13:41 EST , Service support ,
--- NOTE | 2020-05-14 12:01 | RAD_ITS ---
STUDY: X-RAY - RIGHT ELBOW REASON FOR EXAM: Female, 54 years old. FALL. TECHNIQUE: 3 view(s) of the elbow. COMPARISON: None. FINDINGS: Normal visualized humerus, radius and ulna. Normal radiocapitellar and ulnotrochlear articulations. Soft tissue swelling. RAD/Elbow min 3 Views IMPRESSION: Soft tissue swelling. No fracture is seen. Electronically Signed: Zander Bethea MD at 13:39 EST , Service support ,
--- NOTE | 2020-05-14 12:01 | RAD_ITS ---
STUDY: X-RAY - RIGHT WRIST REASON FOR EXAM: Female, 54 years old. FALL. BEST PICTURES OBTAINABLE DUE TO PATIENTS COOPERATION. TECHNIQUE: 3 view(s) of the wrist were obtained. COMPARISON: None. FINDINGS: Normal visualized distal radius and ulna. Normal radiocarpal articulation. Normal distal radioulnar articulation. Normal carpal bones. Normal carpal articulations. Normal carpometacarpal articulation of the thumb. Normal second through fifth carpometacarpal articulations. Normal visualized metacarpal bones. Soft tissue swelling. RAD/Wrist min 3 Views IMPRESSION: Soft tissue swelling. No fracture or dislocation is seen. Electronically Signed: Zander Bethea MD at 13:39 EST , Service support ,
--- NOTE | 2020-05-14 12:02 | RAD_ITS ---
STUDY: X-RAY - PELVIS AND RIGHT HIP REASON FOR EXAM: Female, 54 years old. FALL TECHNIQUE: 3 views of the pelvis and hip. COMPARISON: Comparison is made with prior examination dated 07/27/2018. FINDINGS: There is a non-specific bowel gas pattern. Normal visualized soft tissue structures. Stable 1.6 cm x 0.8 cm rounded sclerotic density in the medial aspect of the left iliac bone. This most likely represents a bone island. Normal bilateral superior and inferior pubic rami. Normal pubic symphysis. Normal bilateral ischial tuberosities. Normal visualized femoral head. Normal acetabulum. There is mild articular joint space narrowing of the hip. RAD/HIP, UNI W/ Pelvis 2-3 Views IMPRESSION: Degenerative changes. No acute abnormality is seen. Electronically Signed: Zander Bethea MD at 13:43 EST , Service support ,
[2020-05-14] MEDS: Morphine 4 MG/ML Syringe IM (12:13)
--- NOTE | 2020-05-14 12:21 | ED.VISSUMM ---
- ER Visit Summary Date of Service: 05/14/20 Chief Complaint: Fall History of Present Illness: The patient is a 54 F who presents after a fall that occurred today. Patient states she left her walker in the bedroom and was walking in the kitchen when she fell. Patient denies any head injury or loss of consciousness. Patient states she landed on her right side. Patient admits to some pain in her right shoulder, elbow, wrist, hip, and ankle. She describes her pain is sharp. Patient states her pain is worse with any movement. Patient denies any paresthesias or weakness. Patient was recently admitted to the hospital for urinary tract infection and was discharged yesterday to assisted living facility. Patient states she still has some dysuria. Physical Examination: Vital signs are stable. Patient is afebrile. Patient is in no acute distress. Oral mucosa is pink and moist. Neck is supple. Trachea is midline. There is no JVD. Heart was regular rate and rhythm. Lungs are clear and equal bilaterally. Abdomen is soft. Bowel sounds are normal. There is some mild lower abdominal tenderness. There is no rebound or guarding noted. Extremities are intact. There is tenderness over the right shoulder, right elbow, right wrist, right hip, and right ankle. There is no obvious deformity noted. Range of motion was limited in all motions of the right upper and lower extremity secondary to pain. Sensation was intact to light touch bilateral in the upper and lower extremities. Cranial nerves II through XII are intact. Test Results: X-rays of the right ankle were obtained. There are 4 views. On my interpretation, there is no acute fracture or dislocation. There is some mild soft tissue swelling. Radiologist also interpreted the x-rays and agrees. X-rays of the right hip were obtained. There are 4 views. On my interpretation, there is no acute fracture or dislocation. There is no pelvic fracture. Radiologist also interpreted the x-rays and agrees. X-rays of the right shoulder were obtained. There are 3 views. On my interpretation, there is no acute fracture or dislocation. There are degenerative changes. Radiologist also interpreted the x-ray and agrees. X-rays of the right elbow were obtained. There are 3 views. On my interpretation, there is no acute fracture or dislocation. There are mild degenerative changes. Radiologist also interpreted the x-rays and agrees. X-rays of the right wrist were obtained. There are 3 views. On my interpretation, there is no acute fracture. There is no dislocation. There is mild soft tissue swelling. Radiologist also interpreted the x-rays and agrees. Emergency Department Course and Treatment: Patient was given a dose of morphine here. Patient is resting comfortably on reevaluation. The assisted living facility states the patient is unsafe to go back there. Patient is agreeable to go to a retirement. Patient does require admission in order to be placed in a retirement. Case was discussed with the hospitalist. He will admit the patient. Patient understands and is agreeable with the plan. All questions were answered. Disposition: Admit to hospital Impression: 1. Fall 2. Debility This note was generated with [employer]ee[employer] dictation software. It may contain incorrect words, spelling, and punctuation that were not noted in review of the chart prior to signing ED Disposition - Plan for ED Patient: Disposition: Acute Care Hospital [facility] Diagnosis: Fall, Debility Referrals: Fredy Walsh MD [Primary Care Provider] -
--- NOTE | 2020-05-14 13:00 | RAD_ITS ---
STUDY: X-RAY - RIGHT ANKLE REASON FOR EXAM: Female, 54 years old. FALL. RIGHT ANKLE PAIN. BEST PICTURES OBTAINABLE DUE TO PATIENTS COOPERATION. TECHNIQUE: 3 view(s) of the ankle. COMPARISON: Comparison is made with prior examination dated 03/17/2010. FINDINGS: Normal visualized distal tibia and fibula. Normal medial and lateral malleoli. Normal tibiotalar articulation and ankle mortise. Normal visualized talus and calcaneus. The visualized subtalar, talonavicular, calcaneocuboid and tarsal articulations are normal. Soft tissue swelling. RAD/Ankle min 3 Views IMPRESSION: Soft tissue swelling. Electronically Signed: Zander Bethea MD at 13:58 EST , Service support ,
--- NOTE | 2020-05-14 14:46 | PCM.HP.STD ---
History of Present Illness Date of Admission: 05/14/20 Chief Complaint: fall The patient is a 54 year old F had a fall today. Patient was not able to tell me what happened but per the emergency room physician, patient was going to her bedroom without her walker when she fell. Patient did not hit her head nor lose consciousness. Patient presented to the emergency room because of this. Patient had a numerous x-ray that showed no acute process. The try to get her up but she was too weak. They try to facilitate patient going to a alf facility, but due to her insurance, were unable to do so. The hospital service was contacted to bring the patient in so that alf facility could be facilitated through the hospital. Patient denies consumption of any illicit substances. [] Past Medical History Past Medical History (Chronic Problems): Chronic Problems (Last Reviewed 11/08/18 @ 14:53 by Claire Lewis BUGGY RUNNER, BUGGY RUNNER-C) Bronchiectasis (Chronic) Chronic obstructive lung disease (Chronic) Cigarette smoker (Chronic) Rheumatoid arthritis (Chronic) Chronic back pain (Chronic) Obesity, morbid, BMI 50 or higher (Chronic) Drug-seeking behavior (Chronic) Diabetes mellitus, type II (Chronic) Psoriatic arthritis (Chronic) HLD (hyperlipidemia) (Chronic) Hypothyroidism (Chronic) Anxiety and depression (Chronic) GERD (gastroesophageal reflux disease) (Chronic) HTN (hypertension) (Chronic) Medical History: Medical History (Last Reviewed 05/14/20 @ 14:[address] Tk Jose, DO) Severe sepsis (Acute) A41.9, R65.20 Chronic obstructive lung disease (Chronic) J44.9 Cigarette smoker (Chronic) F17.210 Rheumatoid arthritis (Chronic) M06.9 Chronic back pain (Chronic) M54.9, G89.29 Obesity, morbid, BMI 50 or higher (Chronic) E66.01 Drug-seeking behavior (Chronic) Z76.5 Diabetes mellitus, type II (Chronic) E11.9 Psoriatic arthritis (Chronic) L40.50 HLD (hyperlipidemia) (Chronic) E78.5 Hypothyroidism (Chronic) E03.9 Anxiety and depression (Chronic) F41.9, F32.9 GERD (gastroesophageal reflux disease) (Chronic) K21.9 HTN (hypertension) (Chronic) I10 Overdose (Resolved) T50.901A Unresponsive episode (Resolved) Abdominal pain (Inactive) R10.9 Acute hypoxemic respiratory failure (Inactive) J96.01 Community acquired pneumonia (Inactive) J18.9 Diarrhea (Inactive) R19.7 Diarrhea (Inactive) R19.7 Lower abdominal pain (Inactive) R10.30 MRSA (methicillin resistant staph aureus) culture positive (Inactive) Z22.322 Nausea and vomiting (Inactive) R11.2 Pneumonia, bacterial (Inactive) J15.9 SIRS (systemic inflammatory response syndrome) (Inactive) R65.10 Severe sepsis (Inactive) A41.9, R65.20 UTI (urinary tract infection) (Inactive) N39.0 UTI (urinary tract infection) (Inactive) N39.0 UTI (urinary tract infection) (Inactive) N39.0 Allergies fentanyl Allergy (Verified 05/11/20 22:53) Rash Iodinated Contrast Media [Iodinated Contrast Media - IV Dye] Allergy (Verified 05/11/20 22:53) Hives CAN BE PRE-MEDICATED levofloxacin [From Levaquin] Allergy (Verified 05/11/20 22:53) Rash nitrofurantoin [From Macrobid] Allergy (Verified 05/11/20 22:53) Rash Sulfa (Sulfonamide Antibiotics) Allergy (Verified 05/11/20 22:53) Itching Home Medications: Ambulatory Orders Medication Instructions Recorded Duloxetine HCl 60 mg PO DAILY 08/28/15 Levothyroxine [Synthroid] 150 mcg PO DAILY 08/28/15 Hydroxychloroquine [Plaquenil] 300 mg PO DAILYCM 06/05/18 cycloBENZAPRine HCl [Flexeril] 10 mg PO BID 06/05/18 Amitriptyline HCl [Elavil] 100 mg PO DAILY 01/31/20 Aspirin [Aspirin, Baby] 81 mg PO DAILY@0800 01/31/20 Cholecalciferol (Vitamin D3) 50 mcg PO DAILY 01/31/20 [Vitamin D3] Cyclobenzaprine HCl 5 mg PO DINNER 01/31/20 Fluticasone/Vilanterol [Breo 1 puff INHALATION DAILY 01/31/20 Ellipta 200-25 Mcg INH] Gabapentin 800 mg PO DAILY 01/31/20 Gabapentin 800 mg PO DINNER 01/31/20 Hydroxyzine Pamoate [Vistaril] 50 mg PO 4X/DAY 01/31/20 Melatonin 10 mg PO QHS 01/31/20 Omeprazole [Prilosec] 20 mg PO DAILY 01/31/20 Quetiapine Fumarate 300 mg PO QHS 01/31/20 Simvastatin 40 mg PO QHS 01/31/20 Sitagliptin Phosphate [Januvia] 100 mg PO DAILY 01/31/20 Tofacitinib Citrate [Xeljanz] 5 mg PO BID 01/31/20 Acetaminophen [Tylenol] 1,000 mg PO TID 02/19/20 Furosemide [Lasix] 20 mg PO DAILY 02/19/20 Gabapentin [Neurontin] 400 mg PO DINNER 02/19/20 Potassium Chloride [Klor-Con M10] 10 meq PO DAILY 02/19/20 Ascorbic Acid [Vitamin C] 500 mg PO DAILY 05/12/20 Cefdinir 300 mg PO BID 05/12/20 Ipratropium/Albuterol Respimat 1 puff INHALATION BID 05/12/20 [Combivent Respimat Inhal [place]] L.acidoph,Paracasei, B.lactis 1 ea PO DAILY 05/12/20 [Probiotic] Oxybutynin [Ditropan] 5 mg PO DAILY 05/12/20 Zinc Sulfate 220 mg PO DAILY 05/12/20 Surgical History: cholecystectomy, gastric bypass, - - Multiple back surgeries, ?6 Psychiatric History: Anxiety, Depression 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 Offspring History Items: - - Obesity Maternal History Items: Stroke Review of Systems Comment: All review of systems were negative except as mentioned above in the history of present illness and the other review of systems. VTE Information - Inpt Only VTE Present on Admission: No VTE Mechan Device Prophylaxis: None VTE Pharm Prophylaxis ordered?: No Patient Problems: Active and Suspected Problems (Last Reviewed 11/08/18 @ 14:53 by Claire Lewis BUGGY RUNNER, BUGGY RUNNER-C) Fall (Acute) Debility (Acute) - Physical Exam Vitals/I&O's: Vital Signs Temp Pulse Resp BP Pulse Ox 36.6 C 97 18 122/103 H 98 05/14/20 11:44 05/14/20 11:44 05/14/20 11:44 05/14/20 11:44 05/14/20 11:44 Oxygen Delivery Method Room Air Weight: 163 kg Body Mass Index (BMI) 54.6 Finger Stick Blood Glucose 294 General: - - Groggy. Afebrile. Appears much older than stated age. HEENT: Atraumatic, Normocephalic Oral: Moist Mucosa, No Gingival or Mucosal Lesions/ Ulcerations Neck: No Nodes, Thyroid Normal Size and Texture Lungs: Clear to auscultation, Normal air movement, No rhonchi, No wheeze, No rales Cardiovascular: Regular rate, Regular Rhythm, Normal S1, Normal S2, No murmurs Abdomen: Bowel Sounds Present, Soft, Non Tender, Non-Distended, No Hepato-splenomegaly, Obese Extremities: No Calf Tenderness, Edema - Trace Psych/Mental Status: Appropriate, Flat Affect Clinical Impression(s) from Imaging Studies Elbow X-Ray 05/14/20 12:01 IMPRESSION: Soft tissue swelling. No fracture is seen. Electronically Signed: Zander Bethea MD at 13:39 EST , Service support , Shoulder X-Ray 05/14/20 12:01 IMPRESSION: Degenerative changes. No acute abnormality is seen. Electronically Signed: Zander Bethea MD at 13:41 EST , Service support , Wrist X-Ray 05/14/20 12:01 IMPRESSION: Soft tissue swelling. No fracture or dislocation is seen. Electronically Signed: Zander Bethea MD at 13:39 EST , Service support , Hip/Pelvis X-Ray 05/14/20 12:02 IMPRESSION: Degenerative changes. No acute abnormality is seen. Electronically Signed: Zander Bethea MD at 13:43 EST , Service support , Ankle X-Ray 05/14/20 13:00 IMPRESSION: Soft tissue swelling. Electronically Signed: Zander Bethea MD at 13:58 EST , Service support , Assessment/Plan All Active Problems (Last Reviewed 11/08/18 @ 14:53 by Claire Lewis BUGGY RUNNER, BUGGY RUNNER-C) JANESSA (acute kidney injury) (Acute) UTI (urinary tract infection) (Acute) COVID-19 (Acute) Lactic acidosis (Acute) Declining functional status (Acute) Fall (Acute) Debility (Acute) Severe sepsis (Acute) Acute respiratory failure with hypoxia (Resolved) Aspiration pneumonia (Resolved) Diarrhea (Resolved) History of Clostridium difficile (Resolved) Overdose (Resolved) Unresponsive episode (Resolved) Acute exacerbation of chronic obstructive pulmonary disease (COPD) (Ruled-out) SIRS with Severe sepsis due to UTI (Ruled-out) Urinary tract infection (Ruled-out) 1. Debility: Patient unable to go back home. Will have physical occupational therapy evaluate her. Plan is for the patient go to a alf facility which was not able to be performed through the emergency room. I am concerned about polypharmacy. Patient has had history of drug-seeking behavior in the past. Patient is on gabapentin 800 mg twice a day +400 mg daily. We will hold that as well as Vistaril and cyclobenzaprine as I am concerned about these medications caused the patient to be too somnolent. I did inform the patient that she would not be receiving any narcotics, which she responded, why are you so mean to me. I told the patient that my intent is not to be mean to her but to be garcia given her previous history of drug-seeking behavior and I am just setting terms that given previous experience that I have had with this particular patient that she would not be receiving any narcotics from me during his hospitalization which has been well-established during previous encounters. 2. UTI: Klebsiella. Continue cefdinir through May 21 3. Diabetes mellitus type 2: Continue with home medications. Add sliding scale insulin. 4. Chronic conditions: Hypertension, hyperlipidemia, hypothyroidism, GERD, rheumatoid arthritis/psoriatic arthritis, depression/anxiety. Complicates overall care and recovery but otherwise stable. Continue with her home medications. 5. VTE prophylaxis: Not indicated given observation status. OBSV E&M: 73201 Initial observation care L2
[2020-05-14 14:56] VITALS: BP 112/79; PULSE 100; RESP 16; TEMP 36.8; O2SAT 94
[2020-05-14 15:12] VITALS: BMI 54.6
--- NOTE | 2020-05-14 15:30 | CM.ED ---
SOCIAL WORK Informant: Dr. Almanza Reason for Consult: Discharge Planning Met with patient in room. Patient states resides in Assisted Living at [facility]. Patient states they don't want me there anymore. They want me to have skilled therapy. Patient voiced hesitation with skilled nursing and states wishes to return home. Patient requesting this worker call [facility] and speak with nurse. Call to [facility] [facility] with [facility]. Per Leah, patient with frequent falls and staff has concerns for patient's safety. [facility] [place] states patient was in agreement with referral to [facility] and they have already initiated referral to Eileen at [facility] prior to sending patient to ER for x-rays due to fall. Discussed Leah and staff concerns at [facility] with patient. Patient in agreement with plan for [facility]. Call to Eileen at [facility]. Eileen reports is aware of referral. Discussed possibility of patient discharging to facility from ER. Per Dafne Arellano is no longer waiving precerts as of 04/28/20 and will need auth prior to patient's admission. Referral faxed, Eileen to initiate precert today. Updated Dr. Almanza on the above. Plan: Admit, referral made to [facility], pending precert at this time. YUSUF Pandey notified. Bulmaro Torres, WEATHER TEACHER, VEHICLE CHECK IN CLERK
[2020-05-14 16:17] VITALS: BMI 53.3
[2020-05-14 16:18] VITALS: BP 120/67; PULSE 100; RESP 20; TEMP 35.9; O2SAT 100
[2020-05-14 16:55] LABS: Bedside Glucose 110 mg/dL (70-110)
[2020-05-14] MEDS: Acetaminophen 325 MG Tablet 650 MG PO (17:12)
[2020-05-14] MEDS: Glucerna Shake 120 ML LIQUID PO (17:16)
[2020-05-14] MEDS: Budesonide Respules 0.5 MG/2 ML AMPUL.NEB. INHALATION (18:56)
[2020-05-14] MEDS: Ipratropium/Albuterol Sulfate 3 ML AMPUL.NEB INHALATION (18:56)
[2020-05-14 18:57] VITALS: PULSE 100; RESP 20; O2SAT 98
[2020-05-14 21:02] VITALS: BP 109/65; PULSE 100; RESP 18; TEMP 36.8; O2SAT 93
[2020-05-14] MEDS: Acetaminophen 500 MG Tablet 1000 MG PO (21:19)
[2020-05-14] MEDS: Cefdinir 300 MG Capsule PO (21:21)
[2020-05-14] MEDS: Atorvastatin Calcium 20 MG Tablet PO (21:21)
[2020-05-14 22:15] LABS: Bedside Glucose 101 mg/dL (70-110)
[2020-05-15] VITALS (8 sets, daily range): BP systolic 101–121; BP diastolic 55–76; PULSE 95–102; RESP 18–20; TEMP 36.8–37.2; O2SAT 94–100
[2020-05-15] MEDS: Acetaminophen 500 MG Tablet 1000 MG PO ×3 (06:34→22:55)
[2020-05-15] MEDS: Levothyroxine 150 MCG Tablet PO (06:35)
[2020-05-15 06:45] LABS: Bedside Glucose 100 mg/dL (70-110)
[2020-05-15] MEDS: Ipratropium/Albuterol Sulfate 3 ML AMPUL.NEB INHALATION ×2 (07:19→13:20)
[2020-05-15] MEDS: Budesonide Respules 0.5 MG/2 ML AMPUL.NEB. INHALATION (07:19)
[2020-05-15] MEDS: Aspirin 81 MG TAB.CHEW PO (08:26)
[2020-05-15] MEDS: Ascorbic Acid 500 MG Tablet PO (08:26)
[2020-05-15] MEDS: Furosemide 20 MG Tablet PO (08:26)
[2020-05-15] MEDS: Potassium Chloride Oral Tablet 10 MEQ PO (08:26)
[2020-05-15] MEDS: DULoxetine Hcl 60 MG Capsule PO (08:27)
[2020-05-15] MEDS: Hydroxychloroquine 200 MG Tablet 300 MG PO (08:27)
[2020-05-15] MEDS: LINAGLIPTIN 5 MG TABLET PO (08:27)
[2020-05-15] MEDS: Amitriptyline 100 MG Tablet PO (08:28)
[2020-05-15] MEDS: Oxybutynin 5 MG Tablet PO (08:28)
[2020-05-15] MEDS: Pantoprazole Sodium 20 MG Tablet PO (08:29)
[2020-05-15] MEDS: Cefdinir 300 MG Capsule PO ×2 (08:34→22:56)
--- NOTE | 2020-05-15 09:17 | CASEMGMT ---
Addendum entered by Katherin Tavares 05/15/20 12:45: YUSUF reviewed chart, pt with mental health hx. SW in to speak with pt. SW introduced self and role at [facility]. SW familiar with pt from previous visits. Pt confirms she has mental health hx, states she has anxiety and depression. Pt states she gets SSI and SSDI and she thinks she gets both of them due to her mental health and physical health. YUSUF placed a a call to [facility]ileen at [facility] and updated her pt is in observation, PAS/RR will be submitted and pt will trip the screen. SW to complete PAS/RR and fax clinicals to [facility] as pt will need to remain at [facility] until [facility] approves pt to admit to SNF. [facility]ileen to call this worker when pre-cert is obtained. Plan: [facility] pending pre-cert and approval from [facility] Original Note: Social Work Note YUSUF placed a call to Eileen at [facility] and informed Eileen to let this worker know when pre-cert is obtained as pt is likely medically ready for discharge today. Plan: [facility] pending pre-cert Katherin Tavares BUTTON BREAKER OPERATOR, OD GRINDER OPERATOR
--- NOTE | 2020-05-15 09:51 | US_ITS ---
STUDY: ABDOMINAL ULTRASOUND REASON FOR EXAM: Female, 54 years old. DX: ABD PAIN. PT DENIED ANY ABDOMINAL PAIN PRIOR TO EXAM. HX OF CHOLECYSTECTOMY AND GASTRIC BYPASS SX. TECHNIQUE: Transabdominal ultrasound was performed with real-time and static garcia scale imaging. TECHNICAL QUALITY: Limited. Examination limited due to obesity. COMPARISON: None. FINDINGS: Liver: The liver measures 18 cm. There is increased echogenicity consistent with fatty infiltration. The bile ducts are within normal limits. There is hepatic color flow. The direction of portal flow is hepatopetal. There is no demonstrated mass lesion. Portal vein measurement: Gallbladder: The patient is status post cholecystectomy. Common Bile Duct (C.B.D.): The common bile duct measures 8.7 mm. Pancreas: Normal size of the head, body and tail of the pancreas. There is normal echogenicity of the pancreas. There is no demonstrated pancreatic mass or cyst. Spleen: There is mild splenomegaly. The spleen measures 12.7 cm x 3.1 cm x 3.1 cm. Right Kidney: Normal size of the right kidney. The right kidney measures 9.2 cm x 5.2 cm x 5.4 cm. Normal renal cortex. The right cortex measures 1.4 cm. There is no demonstrated renal mass or cyst. There is no right hydronephrosis. Left Kidney: Normal size of the left kidney. The left kidney measures 12.4 cm x 5.1 cm x 5.4 cm. Normal renal cortex. The left cortex measures 1.2 cm. There is no demonstrated renal mass or cyst. There is no left hydronephrosis. Aorta: Unremarkable I.V.C.: The IVC is patent. There is no ascites. US/Abdomen Complete IMPRESSION: Diffuse fatty infiltration of the liver. Prior cholecystectomy. Electronically Signed: Zander Bethea MD at 12:28 EST , Service support ,
--- NOTE | 2020-05-15 09:53 | PN_ITS ---
Patient Problems: Active and Suspected Problems (Last Reviewed 05/14/20 @ 14:[address] Tk Jose, DO) Fall (Acute) Debility (Acute) Subjective: Does not feel well. Cannot elaborate what specifically is bothering her. No appetite. Vitals/I&O's: Vital Signs Temp Pulse Resp BP Pulse Ox 37.2 C 95 18 101/68 94 05/15/20 08:24 05/15/20 08:24 05/15/20 08:24 05/15/20 08:24 05/15/20 08:24 Oxygen Delivery Method Room Air Weight: 159.1 kg Body Mass Index (BMI) 53.3 Finger Stick Blood Glucose 294 Intake and Output for Last 24 Hours 05/13/20 05/14/20 05/15/20 23:59 23:59 23:59 Intake Total 300 / 300 Balance 300 / 300 General: Alert, - - flat affect. minimal eye contact. appears much older than stated age. HEENT: Atraumatic, Normocephalic Oral: Moist Mucosa, No Gingival or Mucosal Lesions/ Ulcerations Neck: No Nodes, Thyroid Normal Size and Texture Lungs: Clear to auscultation, Normal air movement, No rhonchi, No wheeze, No rales Cardiovascular: Regular rate, Regular Rhythm, Normal S1, Normal S2, No murmurs Abdomen: Bowel Sounds Present, Soft, Non-Distended, Obese, - - epigastric tenderness. Extremities: No edema, No Calf Tenderness Psych/Mental Status: Normal Affect, Appropriate Laboratory Results 05/14/20 16:48: POC Glucose 110 05/14/20 21:16: POC Glucose 101 05/15/20 06:38: POC Glucose 100 Current Medications Acetaminophen (Acetaminophen 500 Mg Tablet) 1,000 mg PO TID [facility] Last Admin: 05/15/20 06:34 Dose: 1,000 mg Documented by: Acetaminophen (Acetaminophen 325 Mg Tablet) 650 mg PO Q6H PRN PRN PRN Reason: Pain Score 1-10/Temp > 100.7 F Last Admin: 05/14/20 17:12 Dose: 650 mg Documented by: Albuterol/Ipratropium (Ipratropium/Albuterol Sulfate 3 Ml Ampul.Neb) 3 ml INHALATION Q6HWA.RT [facility] Last Admin: 05/15/20 07:19 Dose: 3 ml Documented by: Amitriptyline HCl (Amitriptyline 100 Mg Tablet) 100 mg PO DAILY [facility] Last Admin: 05/15/20 08:28 Dose: 100 mg Documented by: Ascorbic Acid (Ascorbic Acid 500 Mg Tablet) 500 mg PO DAILY [facility] Last Admin: 05/15/20 08:26 Dose: 500 mg Documented by: Aspirin (Aspirin 81 Mg Tab.Chew) 81 mg PO DAILY@0800 [facility] Last Admin: 05/15/20 08:26 Dose: 81 mg Documented by: Atorvastatin Calcium (Atorvastatin Calcium 20 Mg Tablet) 20 mg PO QHS [facility] Last Admin: 05/14/20 21:21 Dose: 20 mg Documented by: Budesonide (Budesonide Respules 0.5 Mg/2 Ml Ampul.Neb.) 0.5 mg INHALATION Q12H.RT [facility] Last Admin: 05/15/20 07:19 Dose: 0.5 mg Documented by: Cefdinir (Cefdinir 300 Mg Capsule) 300 mg PO BID [facility] Stop: 05/21/20 22:01 Last Admin: 05/15/20 08:34 Dose: 300 mg Documented by: Cholecalciferol (Cholecalciferol (Vit D3) 1,000 Unit (25mcg)) 1,000 unit PO DAILY [facility] Last Admin: 05/15/20 08:26 Dose: 1,000 unit Documented by: Dextrose (Dextrose 50%-Water 25 Gm/50 Ml Disp.Syrin) 0 gm IV X1 PRN; Protocol PRN Reason: Hypoglycemia Duloxetine HCl (Duloxetine Hcl 60 Mg Capsule) 60 mg PO DAILY [facility] Last Admin: 05/15/20 08:27 Dose: 60 mg Documented by: Furosemide (Furosemide 20 Mg Tablet) 20 mg PO DAILY [facility] Last Admin: 05/15/20 08:26 Dose: 20 mg Documented by: Glucagon (Glucagon 1 Mg/Ml Syringe) 1 mg IM .X1 PRN PRN Reason: Hypoglycemia Hydroxychloroquine Sulfate ([facility] 200 Mg [facility]) [facility] Last Admin: 05/15/20 08:27 Dose: 300 mg Documented by: Insulin Human Lispro (Insulin Lispro 100 Unit/Ml Insuln.Pen) 0 unit SC TIDAC [facility]; Protocol Last Admin: 05/15/20 06:39 Dose: Not Given Documented by: Lactobacillus Acidophilus (Lactobacillus Acidophilus) 1 tablet PO DAILY [facility] Last Admin: 05/15/20 08:26 Dose: 1 tablet Documented by: Levothyroxine Sodium (Levothyroxine 150 Mcg Tablet) 150 mcg PO DAILY@0600 [facility] Last Admin: 05/15/20 06:35 Dose: 150 mcg Documented by: Linagliptin (Linagliptin 5 Mg Tablet) 5 mg PO DAILY [facility] Last Admin: 05/15/20 08:27 Dose: 5 mg Documented by: Melatonin (Melatonin 10 Mg Tablet) 10 mg PO QHS [facility] Last Admin: 05/14/20 21:20 Dose: Not Given Documented by: Non-Formulary Medication (Tofacitinib Citrate) 5 mg PO BID [facility] Nutritional Formula (Lactose Free) (Glucerna Shake 120 Ml Liquid) 120 ml PO 4X/DAY [facility] Last Admin: 05/15/20 08:28 Dose: Not Given Documented by: Ondansetron HCl (Ondansetron 4 Mg/2 Ml Vial) 4 mg IV Q8H PRN PRN PRN Reason: NAUSEA/VOMITING Oxybutynin Chloride (Oxybutynin 5 Mg Tablet) 5 mg PO DAILY [facility] Last Admin: 05/15/20 08:28 Dose: 5 mg Documented by: Pantoprazole Sodium (Pantoprazole Sodium 40 Mg Tablet) 40 mg PO BID [facility] Potassium Chloride (Potassium Chloride Oral Tablet 10 Meq) 10 meq PO DAILY[facility] Last Admin: 05/15/20 08:26 Dose: 10 meq Documented by: Quetiapine Fumarate (Quetiapine 100 Mg Tablet) 300 mg PO QHS [facility] Last Admin: 05/14/20 21:19 Dose: Not Given Documented by: Sodium Chloride (0.9% Saline Lock 10 Ml Syringe) 10 - 40 ml IV UD PRN PRN Reason: SALINE FLUSH Zinc Sulfate (Zinc Sulfate (50mg Elemental) 220 Mg Capsule) 220 mg PO DAILY [facility] Last Admin: 05/15/20 08:27 Dose: 220 mg Documented by: STROKE Vital Signs/Narrative: Vital Signs Temp Pulse Resp BP Pulse Ox 05/15/20 08:24 37.2 C 95 18 101/68 94 05/15/20 07:19 102 H 20 H 98 Medical Necessity - Tobacco Use Smoking Status: Current every day smoker Tobacco Use: Cigarettes Assessment/Plan All Active Problems (Last Reviewed 05/14/20 @ 14:[address] Tk Jose DO) JANESSA (acute kidney injury) (Acute) UTI (urinary tract infection) (Acute) COVID-19 (Acute) Lactic acidosis (Acute) Declining functional status (Acute) Fall (Acute) Debility (Acute) Severe sepsis (Acute) Acute respiratory failure with hypoxia (Resolved) Aspiration pneumonia (Resolved) Diarrhea (Resolved) History of Clostridium difficile (Resolved) Overdose (Resolved) Unresponsive episode (Resolved) Acute exacerbation of chronic obstructive pulmonary disease (COPD) (Ruled-out) SIRS with Severe sepsis due to UTI (Ruled-out) Urinary tract infection (Ruled-out) 1. Debility: * Patient unable to go back home. * Will have physical occupational therapy evaluate her. Plan is for the patient go to a senior care facility which was not able to be performed through the emergency room. * 05/14: I am concerned about polypharmacy. Patient has had history of drug- seeking behavior in the past. Patient is on gabapentin 800 mg twice a day +400 mg daily. We will hold that as well as Vistaril and cyclobenzaprine as I am concerned about these medications caused the patient to be too somnolent. I did inform the patient that she would not be receiving any narcotics, which she responded, why are you so mean to me. I told the patient that my intent is not to be mean to her but to be garcia given her previous history of drug- seeking behavior and I am just setting terms that given previous experience that I have had with this particular patient that she would not be receiving any narcotics from me during his hospitalization which has been well- established during previous encounters. * 05/15: Pt vague about symptoms. Does have some epigastric tenderness. Will check US (pt with reported allergy to iodinated contrast) plus check CMP and lipase 2. UTI: Klebsiella. Continue cefdinir through May 21 3. Diabetes mellitus type 2: Continue with home medications. Add sliding scale insulin. 4. Chronic conditions: Hypertension, hyperlipidemia, hypothyroidism, GERD, rheumatoid arthritis/psoriatic arthritis, depression/anxiety. Complicates overall care and recovery but otherwise stable. Continue with her home medications. 5. VTE prophylaxis: Not indicated given observation status. OBSV E&M: 80654 Subsequent observation care L2
[2020-05-15 11:56] LABS: Bedside Glucose 113 mg/dL (70-110)
[2020-05-15] MEDS: Glucerna Shake 120 ML LIQUID PO (12:59)
[2020-05-15] MEDS: Pantoprazole Sodium 40 MG Tablet PO ×2 (12:59→22:56)
--- NOTE | 2020-05-15 15:40 | CHAPLAIN ---
Type of Pastoral Visit _x__ Initial Visit ___ Follow-up Visit ___ On-call Visit ___ General Patient Visit ___ Spiritual Assessment ___ Family Conference ___ Bereavement ___ Rapid Response ___ Code Blue ___ Other (describe below) Pastoral Care Referral From _x__ Patient ___ Family ___ Nurse ___ Physician ___ Cloth Bleaching Range Back Tender ___ Lay Out Worker ___ Other (describe below) Sacrament/Intervention ___ Active listening ___ Anointing ___ Orthodoxy ___ Bereavement ___ Communion ___ Sadie exploration ___ ___ Life review _x__ Prayer ___ Reconciliation ___ Sacrament of Sick _x__ Supportive presence ___ Wedding ___ Other (describe below) Pastoral Comments
--- NOTE | 2020-05-15 15:49 | CASEMGMT ---
PERLA GALINDO in to discuss GROSSMAN form with patient. RN MATEO explained GROSSMAN form, patient voiced understanding. Patient signed GROSSMAN form and filed in chart. Patient provided with copy of signed GROSSMAN form. Patient had no further questions or concerns at this time.
[2020-05-15] MEDS: CLARIFY ORDER NOTE (16:10)
--- NOTE | 2020-05-15 16:17 | CASEMGMT ---
Social Work MS3 Collaboration with NIEVES Montelongo for MS3. [facility]. Patient is in observation status, and requires a PASARR screen for admission to the SNF. Due too patient's mental health history, patient will trip the PASARR and requires a further review assessment before going to the SNF. Met with patient to touch base about mental health services and ADL completion at the assisted living. Patient presenting as forgetful with short term memory questions, such as knows she has received mental health services through [facility] but unable to recall names or when last talked to anyone. Denies any psychiatric hospitalizations in the last 2 years. Patient reports she has fallen 2 times in a short amount of time is not allowed to return to the assisted living. Patient states desire to go home, but willing to go to SNF at this time. Patient admits to not using walker as she always should. Spoke with Leah, a nurse at the assisted living. Leah reports to have a counselor at the mental health center and to do phone visits since the COVID pandemic started. Patient moved into the assisted living January 18, 2020. Leah describes patient as: requiring reminders 2-3 times a day to use the walker for safe ambulation. Requires reminders to change depends, as well as proper pericare (patient reportedly has frequent UTI's with ecoli). Patient has to be reminded to wash silverware, hands on help with changing bedding. Overall much encouragement to care for self and daily living activities. Leah reports concern for patient's frequent falls, 2 times in 5 days, and that the assisted living is not equipped to provide more than a light one person assist when a fall occurs. Per Leah, an order was received by patient's physician to send patient to the ED for evaluation, and assistance with SNF admit so that patient can get skilled therapy services. Leah reports patient's waiver case advocate through [facility] is Justen Moore ([phone]). PASARR screen completed via [facility] [facility]. Called [facility] at to notify of impending fax. Verified what information is needed, as well as fax of . Average turnaround time for a decision is 3 days, but this could be shorter or longer. Patient cannot be discharged to SNF until results are back from [facility]. Results will be uploaded to [employer] and faxed to the hospital. Called patient's waiver case advocate and left message of patient's observation admission, with this automobile service writer's as well as Katherin Pro's contact information if needed. PLAN: Seeking short term SNF admission. Await insurance precert as well as authorization from the [facility] department for approval of SNF admission. Social work will continue to follow and assist. -FORTINO Patle, VENDING MACHINE FILLER
--- NOTE | 2020-05-15 16:43 | CASEMGMT ---
Social Work MS3 Further review information faxed to confirmed fax for [facility]. See prior social work notes for further details. -FORTINO Patel, WOMEN'S ACTIVITIES ADVISER
[2020-05-15 17:40] LABS: Bedside Glucose 82 mg/dL (70-110)
[2020-05-15] MEDS: MELATONIN 10 MG TABLET PO (22:55)
[2020-05-15] MEDS: Atorvastatin Calcium 20 MG Tablet PO (22:55)
[2020-05-15] MEDS: QUEtiapine 100 MG Tablet 300 MG PO (22:56)
[2020-05-16 00:21] LABS: Bedside Glucose 88 mg/dL (70-110)
[2020-05-16 04:19] VITALS: BP 119/73; PULSE 95; RESP 20; TEMP 36.8; O2SAT 99
[2020-05-16] MEDS: Levothyroxine 150 MCG Tablet PO (06:26)
[2020-05-16] MEDS: Acetaminophen 500 MG Tablet 1000 MG PO ×3 (06:26→23:00)
[2020-05-16 06:50] LABS: Bedside Glucose 91 mg/dL (70-110)
[2020-05-16 07:04] VITALS: O2SAT 97
[2020-05-16 08:29] VITALS: BP 115/67; PULSE 97; RESP 18; TEMP 36.9; O2SAT 99
--- NOTE | 2020-05-16 09:48 | CASEMGMT ---
Addendum entered by Katherin Tavares 05/16/20 12:05: YUSUF received message from Justen Julian (MATEO) requesting update. YUSUF placed a call to Justen and informed pt that plan is [facility] pending approval from [facility]. YUSUF updated Justen that it will likely take a few days before [facility] provides approval. Justen asked just to be updated when pt discharges. Original Note: Social Work Note YUSUF received call from Eileen at [facility] stating pre-cert has been obtained. YUSUF updated Eileen that pt tripped the screen with PAS/RR so pt will need to remain at [facility] until [facility] approves pt. Eileen states if pt is not admitted today, she will need to resubmit pre-cert. YUSUF informed Eileen that last [facility] took about 3-4 days for results so it is unlikely results from [facility] will be received today. Eileen states understanding. Plan: [facility] when results from [facility] are received Katherin Tavares DIRECTOR OF SOCIAL SERVICES, BENEFITS SPECIALIST
[2020-05-16] MEDS: Pantoprazole Sodium 40 MG Tablet PO ×2 (10:29→21:42)
[2020-05-16] MEDS: Furosemide 20 MG Tablet PO (10:29)
[2020-05-16] MEDS: Potassium Chloride Oral Tablet 10 MEQ PO (10:29)
[2020-05-16] MEDS: Aspirin 81 MG TAB.CHEW PO (10:29)
[2020-05-16] MEDS: Cefdinir 300 MG Capsule PO ×2 (10:30→21:42)
[2020-05-16] MEDS: Ascorbic Acid 500 MG Tablet PO (10:30)
[2020-05-16] MEDS: LINAGLIPTIN 5 MG TABLET PO (10:30)
[2020-05-16] MEDS: Oxybutynin 5 MG Tablet PO (10:30)
[2020-05-16] MEDS: DULoxetine Hcl 60 MG Capsule PO (10:30)
[2020-05-16] MEDS: Hydroxychloroquine 200 MG Tablet 300 MG PO (10:31)
[2020-05-16] MEDS: Amitriptyline 100 MG Tablet PO (10:32)
[2020-05-16] MEDS: Acetaminophen 325 MG Tablet 650 MG PO (10:44)
[2020-05-16 11:01] LABS: Bedside Glucose 90 mg/dL (70-110)
--- NOTE | 2020-05-16 13:56 | PCM.PN.HOSP ---
Patient Problems: Active and Suspected Problems (Last Reviewed 05/14/20 @ 14:[address] Tk Jose, DO) Fall (Acute) Debility (Acute) Subjective: does not feel well still. Still without much appetite. Vitals/I&O's: Vital Signs Temp Pulse Resp BP Pulse Ox 36.9 C 97 18 115/67 99 05/16/20 08:29 05/16/20 08:29 05/16/20 08:29 05/16/20 08:29 05/16/20 08:29 Oxygen Delivery Method Room Air Weight: 159.1 kg Body Mass Index (BMI) 53.3 Finger Stick Blood Glucose 294 Intake and Output for Last 24 Hours 05/14/20 05/15/20 05/16/20 23:59 23:59 23:59 Intake Total 1600 / 1700 400 / 400 Balance 1600 / 1700 400 / 400 General: Alert, No apparent distress, - - appears older than stated age. HEENT: Atraumatic, Normocephalic Oral: Moist Mucosa, No Gingival or Mucosal Lesions/ Ulcerations Neck: No Nodes, Thyroid Normal Size and Texture Lungs: Clear to auscultation, Normal air movement, No rhonchi, No wheeze, No rales Cardiovascular: Regular rate, Regular Rhythm, Normal S1, Normal S2 Abdomen: Bowel Sounds Present, Soft, Non Tender, Non-Distended Extremities: No edema, No Calf Tenderness Psych/Mental Status: Normal Affect, Appropriate Microbiology Past 72 Hours 05/15/20 09:45 Mucosa - Nose SARS-CoV-2 Antigen (Rapid) - Final Laboratory Results 05/15/20 17:01: POC Glucose 82 05/15/20 23:16: POC Glucose 88 05/16/20 06:41: POC Glucose 91 05/16/20 10:52: POC Glucose 90 Current Medications Acetaminophen (Acetaminophen 500 Mg Tablet) 1,000 mg PO TID MAX Last Admin: 05/16/20 13:35 Dose: 1,000 mg Documented by: Acetaminophen (Acetaminophen 325 Mg Tablet) 650 mg PO Q6H PRN PRN PRN Reason: Pain Score 1-10/Temp > 100.7 F Last Admin: 05/16/20 10:44 Dose: 650 mg Documented by: Albuterol/Ipratropium (Ipratropium/Albuterol Sulfate 3 Ml Ampul.Neb) 3 ml INHALATION Q6HWA.RT [facility] Last Admin: 05/15/20 13:20 Dose: 3 ml Documented by: Amitriptyline HCl (Amitriptyline 100 Mg Tablet) 100 mg PO DAILY [facility] Last Admin: 05/16/20 10:32 Dose: 100 mg Documented by: Ascorbic Acid (Ascorbic Acid 500 Mg Tablet) 500 mg PO DAILY [facility] Last Admin: 05/16/20 10:30 Dose: 500 mg Documented by: Aspirin (Aspirin 81 Mg Tab.Chew) 81 mg PO DAILY@0800 [facility] Last Admin: 05/16/20 10:29 Dose: 81 mg Documented by: Atorvastatin Calcium (Atorvastatin Calcium 20 Mg Tablet) 20 mg PO QHS [facility] Last Admin: 05/15/20 22:55 Dose: 20 mg Documented by: Budesonide (Budesonide Respules 0.5 Mg/2 Ml Ampul.Neb.) 0.5 mg INHALATION Q12H.RT [facility] Last Admin: 05/15/20 07:19 Dose: 0.5 mg Documented by: Cefdinir (Cefdinir 300 Mg Capsule) 300 mg PO BID [facility] Stop: 05/21/20 22:01 Last Admin: 05/16/20 10:30 Dose: 300 mg Documented by: Cholecalciferol (Cholecalciferol (Vit D3) 1,000 Unit (25mcg)) 1,000 unit PO DAILY [facility] Last Admin: 05/16/20 10:29 Dose: 1,000 unit Documented by: Dextrose (Dextrose 50%-Water 25 Gm/50 Ml Disp.Syrin) 0 gm IV X1 PRN; Protocol PRN Reason: Hypoglycemia Duloxetine HCl (Duloxetine Hcl 60 Mg Capsule) 60 mg PO DAILY [facility] Last Admin: 05/16/20 10:30 Dose: 60 mg Documented by: Furosemide (Furosemide 20 Mg Tablet) 20 mg PO DAILY [facility] Last Admin: 05/16/20 10:29 Dose: 20 mg Documented by: Glucagon (Glucagon 1 Mg/Ml Syringe) 1 mg IM .X1 PRN PRN Reason: Hypoglycemia Hydroxychloroquine Sulfate (Hydroxychloroquine 200 Mg Tablet) 300 mg PO DAILYCM [facility] Last Admin: 05/16/20 10:31 Dose: 300 mg Documented by: Insulin Human Lispro (Insulin Lispro 100 Unit/Ml Insuln.Pen) 0 unit SC TIDAC [facility]; Protocol Last Admin: 05/16/20 10:53 Dose: Not Given Documented by: Lactobacillus Acidophilus (Lactobacillus Acidophilus) 1 tablet PO DAILY [facility] Last Admin: 05/16/20 10:30 Dose: 1 tablet Documented by: Levothyroxine Sodium (Levothyroxine 150 Mcg Tablet) 150 mcg PO DAILY@0600 [facility] Last Admin: 05/16/20 06:26 Dose: 150 mcg Documented by: Linagliptin (Linagliptin 5 Mg Tablet) 5 mg PO DAILY [facility] Last Admin: 05/16/20 10:30 Dose: 5 mg Documented by: Melatonin (Melatonin 10 Mg Tablet) 10 mg PO QHS [facility] Last Admin: 05/15/20 22:55 Dose: 10 mg Documented by: Non-Formulary Medication (Tofacitinib Citrate) 5 mg PO BID [facility] Ondansetron HCl (Ondansetron 4 Mg/2 Ml Vial) 4 mg PO Q8H PRN PRN PRN Reason: NAUSEA/VOMITING Oxybutynin Chloride (Oxybutynin 5 Mg Tablet) 5 mg PO DAILY [facility] Last Admin: 05/16/20 10:30 Dose: 5 mg Documented by: Pantoprazole Sodium (Pantoprazole Sodium 40 Mg Tablet) 40 mg PO BID [facility] Last Admin: 05/16/20 10:29 Dose: 40 mg Documented by: Potassium Chloride (Potassium Chloride [facility] 10 [facility]) [facility] Last Admin: 05/16/20 10:29 Dose: 10 meq Documented by: Quetiapine Fumarate (Quetiapine 100 Mg Tablet) 300 mg PO QHS [facility] Last Admin: 05/15/20 22:56 Dose: 300 mg Documented by: Sodium Chloride (0.9% Saline Lock 10 Ml Syringe) 10 - 40 ml IV UD PRN PRN Reason: SALINE FLUSH Zinc Sulfate (Zinc Sulfate (50mg Elemental) 220 Mg Capsule) 220 mg PO DAILY [facility] Last Admin: 05/16/20 10:30 Dose: 220 mg Documented by: Medical Necessity - Tobacco Use Smoking Status: Current every day smoker Tobacco Use: Cigarettes Assessment/Plan All Active Problems (Last Reviewed 05/14/20 @ 14:[address] Tk Jose DO) JANESSA (acute kidney injury) (Acute) UTI (urinary tract infection) (Acute) COVID-19 (Acute) Lactic acidosis (Acute) Declining functional status (Acute) Fall (Acute) Debility (Acute) Severe sepsis (Acute) Acute respiratory failure with hypoxia (Resolved) Aspiration pneumonia (Resolved) Diarrhea (Resolved) History of Clostridium difficile (Resolved) Overdose (Resolved) Unresponsive episode (Resolved) Acute exacerbation of chronic obstructive pulmonary disease (COPD) (Ruled-out) SIRS with Severe sepsis due to UTI (Ruled-out) Urinary tract infection (Ruled-out) 1. Debility: Patient unable to go back home. Will have physical occupational therapy evaluate her. Plan is for the patient go to a retirement facility which was not able to be performed through the emergency room. 05/14: I am concerned about polypharmacy. Patient has had history of drug-seeking behavior in the past. Patient is on gabapentin 800 mg twice a day +400 mg daily. We will hold that as well as Vistaril and cyclobenzaprine as I am concerned about these medications caused the patient to be too somnolent. I did inform the patient that she would not be receiving any narcotics, which she responded, why are you so mean to me. I told the patient that my intent is not to be mean to her but to be garcia given her previous history of drug-seeking behavior and I am just setting terms that given previous experience that I have had with this particular patient that she would not be receiving any narcotics from me during his hospitalization which has been well-established during previous encounters. 05/15: Pt vague about symptoms. Does have some epigastric tenderness. Will check US (pt with reported allergy to iodinated contrast) plus check CMP and lipase 2. UTI: Klebsiella. Continue cefdinir through May 21 3. Diabetes mellitus type 2: Continue with home medications. Add sliding scale insulin. 4. Chronic conditions: Hypertension, hyperlipidemia, hypothyroidism, GERD, rheumatoid arthritis/psoriatic arthritis, depression/anxiety. Complicates overall care and recovery but otherwise stable. Continue with her home medications. 5. VTE prophylaxis: Not indicated given observation status. Inpatient E&M: 64798 [facility] L1
[2020-05-16 14:00] VITALS: BP 106/62; PULSE 98; RESP 18; TEMP 36.6; O2SAT 98
--- NOTE | 2020-05-16 16:03 | NURSING ---
Student documentation reviewed.
[2020-05-16] MEDS: Ondansetron 8 MG Tablet PO (17:03)
[2020-05-16] MEDS: Ipratropium/Albuterol Sulfate 3 ML AMPUL.NEB INHALATION (19:23)
[2020-05-16 21:36] VITALS: BP 125/71; PULSE 93; RESP 18; TEMP 36.4; O2SAT 98
[2020-05-16] MEDS: QUEtiapine 100 MG Tablet 300 MG PO (21:42)
[2020-05-16] MEDS: MELATONIN 10 MG TABLET PO (21:42)
[2020-05-16] MEDS: Atorvastatin Calcium 20 MG Tablet PO (21:42)
[2020-05-16] MEDS: Nystatin Powder 15gm Bottle 1 APPLIC TOPICAL (21:50)
[2020-05-16 21:56] LABS: Bedside Glucose 90 mg/dL (70-110)
[2020-05-17 00:25] LABS: Bedside Glucose 96 mg/dL (70-110)
[2020-05-17 04:16] VITALS: BP 119/76; PULSE 95; RESP 18; TEMP 36.6; O2SAT 96
[2020-05-17] MEDS: Nystatin Powder 15gm Bottle 1 APPLIC TOPICAL ×2 (06:30→13:48)
[2020-05-17] MEDS: Levothyroxine 150 MCG Tablet PO (06:31)
[2020-05-17] MEDS: Acetaminophen 500 MG Tablet 1000 MG PO ×2 (06:31→13:48)
[2020-05-17 06:41] LABS: Bedside Glucose 81 mg/dL (70-110)
[2020-05-17 07:40] VITALS: BP 119/70; PULSE 99; RESP 12; TEMP 36.3; O2SAT 96
[2020-05-17 07:55] VITALS: O2SAT 96
[2020-05-17 08:18] VITALS: PULSE 70
[2020-05-17] MEDS: Furosemide 20 MG Tablet PO (08:24)
[2020-05-17] MEDS: Potassium Chloride Oral Tablet 10 MEQ PO (08:24)
[2020-05-17] MEDS: LINAGLIPTIN 5 MG TABLET PO (08:24)
[2020-05-17] MEDS: Oxybutynin 5 MG Tablet PO (08:25)
[2020-05-17] MEDS: Pantoprazole Sodium 40 MG Tablet PO (08:25)
[2020-05-17] MEDS: Ascorbic Acid 500 MG Tablet PO (08:25)
[2020-05-17] MEDS: Amitriptyline 100 MG Tablet PO (08:26)
[2020-05-17] MEDS: DULoxetine Hcl 60 MG Capsule PO (08:26)
[2020-05-17] MEDS: Aspirin 81 MG TAB.CHEW PO (08:27)
[2020-05-17] MEDS: Cefdinir 300 MG Capsule PO (08:27)
--- NOTE | 2020-05-17 10:13 | CASEMGMT ---
Addendum entered by Katherin Tavares 05/17/20 10:46: YSUUF received call from Eileen at [facility] stating pre-cert is still good, pt can admit to SNF today. YUSUF updated physician. Original Note: Social Work Note [facility] Pt has been RULED OUT from further PAS/RR review, pt can admit to long-term. YUSUF placed a call to Eileen at [facility] and updated her [facility] has approved pt to admit to long-term. Eileen states she will reach out to pt's insurance to determine if prior authorization is still good. YUSUF faxed updated clinicals to [facility]. YUSUF faxed [facility] results and PAS/RR to Eileen at [facility], copy placed on pt's chart. Physician updated. Plan: [facility] skilled pending pre-cert Katherin Tavares COLLAR PACKER, SAFETY AND HEALTH CONSULTANT
[2020-05-17] MEDS: Hydroxychloroquine 200 MG Tablet 300 MG PO (10:37)
[2020-05-17 10:44] VITALS: BP 124/75; PULSE 96; RESP 18; TEMP 36.5; O2SAT 96
--- NOTE | 2020-05-17 11:17 | DCINST_ITS ---
- Discharge Diagnoses Current Active Problems: Current Active and Chronic Problems (Last Reviewed 05/14/20 @ 14:[address] Tk Jose, DO) Fall (Acute) Debility (Acute) You will use the following diet at home:: Calorie/Carbohydrate Controlled (specify 1200, 1400, etc) - 1800 Your food should be the consistency of: Regular Your liquids should be the consistency of: Regular/Thin Discharge Activity: Return to Normal Activity Allergies/Adverse Reactions: Allergies fentanyl Allergy (Verified 05/11/20 22:53) Rash Iodinated Contrast Media [Iodinated Contrast Media - IV Dye] Allergy (Verified 05/11/20 22:53) Hives CAN BE PRE-MEDICATED levofloxacin [From Levaquin] Allergy (Verified 05/11/20 22:53) Rash nitrofurantoin [From Macrobid] Allergy (Verified 05/11/20 22:53) Rash Sulfa (Sulfonamide Antibiotics) Allergy (Verified 05/11/20 22:53) Itching Medications to take at Discharge Duloxetine HCl 60 mg PO DAILY 08/28/15 Levothyroxine [Synthroid] 150 mcg PO DAILY 08/28/15 Hydroxychloroquine [Plaquenil] 300 mg PO DAILYCM 06/05/18 Amitriptyline HCl [Elavil] 100 mg PO DAILY 01/31/20 Aspirin [Aspirin, Baby] 81 mg PO DAILY@0800 01/31/20 Cholecalciferol (Vitamin D3) [Vitamin D3] 50 mcg PO DAILY 01/31/20 Fluticasone/Vilanterol [Breo Ellipta 200-25 Mcg INH] 1 puff INHALATION DAILY 01/31/20 Melatonin 10 mg PO QHS 01/31/20 Omeprazole [Prilosec] 20 mg PO DAILY 01/31/20 Quetiapine Fumarate 300 mg PO QHS 01/31/20 Simvastatin 40 mg PO QHS 01/31/20 Sitagliptin Phosphate [Januvia] 100 mg PO DAILY 01/31/20 Tofacitinib Citrate [Xeljanz] 5 mg PO BID 01/31/20 Furosemide [Lasix] 20 mg PO DAILY 02/19/20 Potassium Chloride [Klor-Con M10] 10 meq PO DAILY 02/19/20 Ascorbic Acid [Vitamin C] 500 mg PO DAILY 05/12/20 Cefdinir 300 mg PO BID 05/12/20 L.acidoph,Paracasei, B.lactis [Probiotic] 1 ea PO DAILY 05/12/20 Oxybutynin [Ditropan] 10 mg PO DAILY 05/12/20 Zinc Sulfate 220 mg PO DAILY 05/12/20 Ipratropium/Albuterol Respimat [Combivent Respimat Inhal [place]] 1 puff INHALA TION BID 05/14/20 Acetaminophen [Tylenol] 1,000 mg PO TID PRN tab 05/17/20 Primary Care Physician: Fredy Walsh MD [Primary Care Provider] - Within 2 Weeks Test Results: Test results from this visit will be discussed in further detail at your follow- up appointment, if applicable. Proposed Discharge Date: 05/17/20
--- NOTE | 2020-05-17 11:18 | PCM.TXEXTCAR ---
- Diet 05/15/20 15:03 Diet: Carbohydrate Controlled Food consistency:: Regular Liquid Consistency:: Regular/Thin Dietary Modifications:: Cardiac / Heart Healthy Is pt able to select menu?: Yes - Routine Orders/Code Status Routine Lab Work: CBC, BMP - Wound(s) right elbow Wound Type: Abrasion - Therapies Physical Therapy: Eval and Treat Occupational Therapy: Eval and Treat - Allergies/Procedures Done in Hospital Allergies/Adverse Reactions: Allergies fentanyl Allergy (Verified 05/11/20 22:53) Rash Iodinated Contrast Media [Iodinated Contrast Media - IV Dye] Allergy (Verified 05/11/20 22:53) Hives CAN BE PRE-MEDICATED levofloxacin [From Levaquin] Allergy (Verified 05/11/20 22:53) Rash nitrofurantoin [From Macrobid] Allergy (Verified 05/11/20 22:53) Rash Sulfa (Sulfonamide Antibiotics) Allergy (Verified 05/11/20 22:53) Itching - Type of Care/Length of Stay Estimated LOS: Convalescent Care Less Than 30 days Type of Care Needed: Skilled Rehab Potential: Fair Prognosis: Good - Additional Orders/Day of Discharge Day of Discharge: 05/17/20 - Dietary and Speech Recommendations Dietitian Recommendations/Changes: Will provide CHO consistent-Cardiac diet d/t to pt pmhx & to meet pt estimated nutrient needs. Will D/C ana desir as pt w/ reported good intake. - Follow Up Care Primary Care Physician: Fredy Walsh MD [Primary Care Provider] - Within 2 Weeks
--- NOTE | 2020-05-17 11:20 | PCM.DC.SUM ---
Discharge Date and Diagnosis - Problem List Patient Problems: Active and Suspected Problems (Last Reviewed 05/14/20 @ 14:[address] Tk Jose DO) Fall (Acute) Debility (Acute) Date of Admission: 05/14/20 Date of Discharge: 05/17/20 - Primary Discharge Diagnosis Acute Problems: Active Problems (Last Reviewed 05/14/20 @ 14:[address] Tk Jose DO) Fall (Acute) Debility (Acute) - Secondary Discharge Diagnosis Chronic Problems: Chronic Problems (Last Reviewed 05/14/20 @ 14:[address] Tk Jose DO) Bronchiectasis (Chronic) Chronic obstructive lung disease (Chronic) Cigarette smoker (Chronic) Rheumatoid arthritis (Chronic) Chronic back pain (Chronic) Obesity, morbid, BMI 50 or higher (Chronic) Drug-seeking behavior (Chronic) Diabetes mellitus, type II (Chronic) Psoriatic arthritis (Chronic) HLD (hyperlipidemia) (Chronic) Hypothyroidism (Chronic) Anxiety and depression (Chronic) GERD (gastroesophageal reflux disease) (Chronic) HTN (hypertension) (Chronic) Hospital Course and Treatment Imaging Results: Clinical Impression(s) from Imaging Studies Elbow X-Ray 05/14/20 12:01 IMPRESSION: Soft tissue swelling. No fracture is seen. Electronically Signed: Zander Bethea MD at 13:39 EST , Service support , Shoulder X-Ray 05/14/20 12:01 IMPRESSION: Degenerative changes. No acute abnormality is seen. Electronically Signed: Zander Bethea MD at 13:41 EST , Service support , Wrist X-Ray 05/14/20 12:01 IMPRESSION: Soft tissue swelling. No fracture or dislocation is seen. Electronically Signed: Zander Bethea MD at 13:39 EST , Service support , Hip/Pelvis X-Ray 05/14/20 12:02 IMPRESSION: Degenerative changes. No acute abnormality is seen. Electronically Signed: Zander Bethea MD at 13:43 EST , Service support , Ankle X-Ray 05/14/20 13:00 IMPRESSION: Soft tissue swelling. Electronically Signed: Zander Bethea MD at 13:58 EST , Service support , Abdomen Ultrasound 05/15/20 09:51 IMPRESSION: Diffuse fatty infiltration of the liver. Prior cholecystectomy. Electronically Signed: Zander Bethea MD at 12:28 EST , Service support , Operations: None Procedures: None Summary of Care Provided: The patient is a 54 year old F who was just discharged on the , present on the after a fall. Patient had no acute issues pertaining to her fall but was unable to get up and go home. The decision was made to bring the patient in for nursing home facility placement. Patient's biggest complaint is abdominal pain and lack of taste. Patient had Covid previously that has affected her smell or taste. Patient did have an abdominal ultrasound that was unremarkable. She declined lab work to evaluate for acute hepatitis or pancreatitis. Clinically patient is stable not having any acute intra-abdominal catastrophe. Patient has been groggy when she presented also during the previous admission so her gabapentin, hydroxyzine as well as cyclobenzaprine have been held and will continue to be held for now. Patient does have a history of drug-seeking behavior as well concern for manipulation in regards to self inoculation herself to cause urinary tract infections. Patient was previously treated with cefdinir for recent urinary tract infection which she will continue through the complete a 10-day course. Patient did have to have an [facility] evaluation given her psychiatric history. Patient was cleared by that and got precertification [facility] condition. 1. Debility: Patient unable to go back home. Will have physical occupational therapy evaluate her. Plan is for the patient go to a nursing home facility which was not able to be performed through the emergency room. 05/14: I am concerned about polypharmacy. Patient has had history of drug-seeking behavior in the past. Patient is on gabapentin 800 mg twice a day +400 mg daily. We will hold that as well as Vistaril and cyclobenzaprine as I am concerned about these medications caused the patient to be too somnolent. I did inform the patient that she would not be receiving any narcotics, which she responded, why are you so mean to me. I told the patient that my intent is not to be mean to her but to be garcia given her previous history of drug-seeking behavior and I am just setting terms that given previous experience that I have had with this particular patient that she would not be receiving any narcotics from me during his hospitalization which has been well-established during previous encounters. 05/15: Pt vague about symptoms. Does have some epigastric tenderness. Will check US (pt with reported allergy to iodinated contrast) plus check CMP and lipase 2. UTI: Klebsiella. Continue cefdinir through May 21 3. Diabetes mellitus type 2: stable Continue with home medications. 4. Chronic conditions: Hypertension, hyperlipidemia, hypothyroidism, GERD, rheumatoid arthritis/psoriatic arthritis, depression/anxiety. Complicates overall care and recovery but otherwise stable. Continue with her home medications.[] Patient Problems: Active and Suspected Problems (Last Reviewed 05/14/20 @ 14:[address] Tk Jose, DO) Fall (Acute) Debility (Acute) - Physical Exam Vitals/I&O's: Vital Signs Temp Pulse Resp BP Pulse Ox 36.5 C L 96 18 124/75 H 96 05/17/20 10:44 05/17/20 10:44 05/17/20 10:44 05/17/20 10:44 05/17/20 10:44 Oxygen Delivery Method Room Air Weight: 159.1 kg Body Mass Index (BMI) 53.3 Finger Stick Blood Glucose 294 Intake and Output for Last 24 Hours 05/15/20 05/16/20 05/17/20 23:59 23:59 23:59 Intake Total 1600 / 1700 400 / 800 520 / 520 Balance 1600 / 1700 400 / 800 520 / 520 General: Alert, No apparent distress, - - appears older than stated age. HEENT: Atraumatic, Normocephalic Oral: Moist Mucosa, No Gingival or Mucosal Lesions/ Ulcerations Neck: No Nodes, Thyroid Normal Size and Texture Lungs: Clear to auscultation, Normal air movement, No rhonchi, No wheeze Cardiovascular: Regular rate, Regular Rhythm, Normal S1, Normal S2, No murmurs Abdomen: Bowel Sounds Present, Soft, Non Tender, Non-Distended, Obese Extremities: Edema Microbiology Past 72 Hours 05/15/20 09:45 Mucosa - Nose SARS-CoV-2 Antigen (Rapid) - Final Laboratory Results 05/16/20 17:01: POC Glucose 96 05/16/20 21:50: POC Glucose 90 05/17/20 06:32: POC Glucose 81 Current Medications Acetaminophen (Acetaminophen 500 Mg Tablet) 1,000 mg PO TID [facility] Last Admin: 05/17/20 06:31 Dose: 1,000 mg Documented by: Acetaminophen (Acetaminophen 325 Mg Tablet) 650 mg PO Q6H PRN PRN PRN Reason: Pain Score 1-10/Temp > 100.7 F Last Admin: 05/16/20 10:44 Dose: 650 mg Documented by: Albuterol/Ipratropium (Ipratropium/Albuterol Sulfate 3 Ml Ampul.Neb) 3 ml INHALATION Q6HWA.RT [facility] Last Admin: 05/16/20 19:23 Dose: 3 ml Documented by: Amitriptyline HCl (Amitriptyline 100 Mg Tablet) 100 mg PO DAILY [facility] Last Admin: 05/17/20 08:26 Dose: 100 mg Documented by: Ascorbic Acid (Ascorbic Acid 500 Mg Tablet) 500 mg PO DAILY [facility] Last Admin: 05/17/20 08:25 Dose: 500 mg Documented by: Aspirin (Aspirin 81 Mg Tab.Chew) 81 mg PO DAILY@0800 [facility] Last Admin: 05/17/20 08:27 Dose: 81 mg Documented by: Atorvastatin Calcium (Atorvastatin Calcium 20 Mg Tablet) 20 mg PO QHS [facility] Last Admin: 05/16/20 21:42 Dose: 20 mg Documented by: Budesonide (Budesonide Respules 0.5 Mg/2 Ml Ampul.Neb.) 0.5 mg INHALATION Q12H.RT [facility] Last Admin: 05/15/20 07:19 Dose: 0.5 mg Documented by: Cefdinir (Cefdinir 300 Mg Capsule) 300 mg PO BID [facility] Stop: 05/21/20 22:01 Last Admin: 05/17/20 08:27 Dose: 300 mg Documented by: Cholecalciferol (Cholecalciferol (Vit D3) 1,000 Unit (25mcg)) 1,000 unit PO DAILY [facility] Last Admin: 05/17/20 08:25 Dose: 1,000 unit Documented by: Dextrose (Dextrose 50%-Water 25 Gm/50 Ml Disp.Syrin) 0 gm IV X1 PRN; Protocol PRN Reason: Hypoglycemia Duloxetine HCl (Duloxetine Hcl 60 Mg Capsule) 60 mg PO DAILY [facility] Last Admin: 05/17/20 08:26 Dose: 60 mg Documented by: Furosemide (Furosemide 20 Mg Tablet) 20 mg PO DAILY [facility] Last Admin: 05/17/20 08:24 Dose: 20 mg Documented by: Glucagon (Glucagon 1 Mg/Ml Syringe) 1 mg IM .X1 PRN PRN Reason: Hypoglycemia Hydroxychloroquine Sulfate ([facility] 200 Mg Tablet) [facility] Admin: 05/17/20 10:37 Dose: 300 mg Documented by: Insulin Human Lispro (Insulin Lispro 100 Unit/Ml Insuln.Pen) 0 unit SC TIDAC [facility]; Protocol Last Admin: 05/17/20 10:36 Dose: Not Given Documented by: Lactobacillus Acidophilus (Lactobacillus Acidophilus) 1 tablet PO DAILY [facility] Last Admin: 05/17/20 08:25 Dose: 1 tablet Documented by: Levothyroxine Sodium (Levothyroxine 150 Mcg Tablet) 150 mcg PO DAILY@0600 [facility] Last Admin: 05/17/20 06:31 Dose: 150 mcg Documented by: Linagliptin (Linagliptin 5 Mg Tablet) 5 mg PO DAILY [facility] Last Admin: 05/17/20 08:24 Dose: 5 mg Documented by: Melatonin (Melatonin 10 Mg Tablet) 10 mg PO QHS [facility] Last Admin: 05/16/20 21:42 Dose: 10 mg Documented by: Non-Formulary Medication (Tofacitinib Citrate) 5 mg PO BID [facility] Nystatin (Nystatin Powder 15gm Bottle) 1 applic TOPICAL TID [facility]; Protocol Last Admin: 05/17/20 06:30 Dose: 1 applicatio Documented by: Ondansetron HCl (Ondansetron 8 Mg Tablet) 8 mg PO Q8H PRN PRN PRN Reason: NAUSEA/VOMITING Last Admin: 05/16/20 17:03 Dose: 8 mg Documented by: Oxybutynin Chloride (Oxybutynin 5 Mg Tablet) 5 mg PO DAILY [facility] Last Admin: 05/17/20 08:25 Dose: 5 mg Documented by: Pantoprazole Sodium (Pantoprazole Sodium 40 Mg Tablet) 40 mg PO BID [facility] Last Admin: 05/17/20 08:25 Dose: 40 mg Documented by: Potassium Chloride (Potassium Chloride Oral Tablet 10 Meq) [facility] Last Admin: 05/17/20 08:24 Dose: 10 meq Documented by: Quetiapine Fumarate (Quetiapine 100 Mg Tablet) 300 mg PO QHS [facility] Last Admin: 05/16/20 21:42 Dose: 300 mg Documented by: Sodium Chloride (0.9% Saline Lock 10 Ml Syringe) 10 - 40 ml IV UD PRN PRN Reason: SALINE FLUSH Zinc Sulfate (Zinc Sulfate (50mg Elemental) 220 Mg Capsule) 220 mg PO DAILY [facility] Last Admin: 05/17/20 08:25 Dose: 220 mg Documented by: Discharge Diet: 1800 Calorie Control Diet Discharge Activity: Return to Normal Activity Home Medications: Medications to take at Discharge Duloxetine HCl 60 mg PO DAILY 08/28/15 Levothyroxine [Synthroid] 150 mcg PO DAILY 08/28/15 Hydroxychloroquine [Plaquenil] 300 mg PO DAILY 06/05/18 Amitriptyline HCl [Elavil] 100 mg PO DAILY 01/31/20 Aspirin [Aspirin, Baby] 81 mg PO DAILY@0800 01/31/20 Cholecalciferol (Vitamin D3) [Vitamin D3] 50 mcg PO DAILY 01/31/20 Fluticasone/Vilanterol [Breo Ellipta 200-25 Mcg INH] 1 puff INHALATION DAILY 01/31/20 Melatonin 10 mg PO QHS 01/31/20 Omeprazole [Prilosec] 20 mg PO DAILY 01/31/20 Quetiapine Fumarate 300 mg PO QHS 01/31/20 Simvastatin 40 mg PO QHS 01/31/20 Sitagliptin Phosphate [Januvia] 100 mg PO DAILY 01/31/20 Tofacitinib Citrate [Xeljanz] 5 mg PO BID 01/31/20 Furosemide [Lasix] 20 mg PO DAILY 02/19/20 Potassium Chloride [Klor-Con M10] 10 meq PO DAILY 02/19/20 Ascorbic Acid [Vitamin C] 500 mg PO DAILY 05/12/20 Cefdinir 300 mg PO BID 05/12/20 L.acidoph,Paracasei, B.lactis [Probiotic] 1 ea PO DAILY 05/12/20 Oxybutynin [Ditropan] 10 mg PO DAILY 05/12/20 Zinc Sulfate 220 mg PO DAILY 05/12/20 Ipratropium/Albuterol Respimat [Combivent Respimat Inhal [place]] 1 puff INHALATION BID 05/14/20 Acetaminophen [Tylenol] 1,000 mg PO TID PRN tab 05/17/20 Primary Care Physician: Fredy Walsh MD [Primary Care Provider] - Within 2 Weeks Disposition: [facility] facility Minutes spent on discharge:: 32 Patient Condition:: Good Medical Necessity - Tobacco Use Smoking Status: Current every day smoker Tobacco Use: Cigarettes Meaningful Use Info Meaningful Use Diagnoses (Choose all that apply): None applicable OBSV E&M: 30092 Observation care discharge
--- NOTE | 2020-05-17 12:00 | PHA.DC.MR ---
Pharmacy Service has performed discharge medication reconciliation for this patient. The patient's discharge medication list was reviewed for discrepancies and discrepancies were resolved. Home Medications Duloxetine HCl 60 mg PO DAILY 08/28/15 Levothyroxine [Synthroid] 150 mcg PO DAILY 08/28/15 Hydroxychloroquine [Plaquenil] 300 mg PO DAILYCM 06/05/18 Amitriptyline HCl [Elavil] 100 mg PO DAILY 01/31/20 Aspirin [Aspirin, Baby] 81 mg PO DAILY@0800 01/31/20 Cholecalciferol (Vitamin D3) [Vitamin D3] 50 mcg PO DAILY 01/31/20 Fluticasone/Vilanterol [Breo Ellipta 200-25 Mcg INH] 1 puff INHALATION DAILY 01/31/20 Melatonin 10 mg PO QHS 01/31/20 Omeprazole [Prilosec] 20 mg PO DAILY 01/31/20 Quetiapine Fumarate 300 mg PO QHS 01/31/20 Simvastatin 40 mg PO QHS 01/31/20 Sitagliptin Phosphate [Januvia] 100 mg PO DAILY 01/31/20 Tofacitinib Citrate [Xeljanz] 5 mg PO BID 01/31/20 Furosemide [Lasix] 20 mg PO DAILY 02/19/20 Potassium Chloride [Klor-Con M10] 10 meq PO DAILY 02/19/20 Ascorbic Acid [Vitamin C] 500 mg PO DAILY 05/12/20 Cefdinir 300 mg PO BID 05/12/20 L.acidoph,Paracasei, B.lactis [Probiotic] 1 ea PO DAILY 05/12/20 Oxybutynin [Ditropan] 10 mg PO DAILY 05/12/20 Zinc Sulfate 220 mg PO DAILY 05/12/20 Ipratropium/Albuterol Respimat [Combivent Respimat Inhal [place]] 1 puff INHALATION BID 05/14/20 Acetaminophen [Tylenol] 1,000 mg PO TID PRN tab 05/17/20
[2020-05-17] MEDS: Ondansetron 8 MG Tablet PO (12:09)
[2020-05-17 12:20] LABS: Bedside Glucose 120 mg/dL (70-110)
--- NOTE | 2020-05-17 12:53 | CASEMGMT ---
Social Work Note Pt is discharging to [facility] today. YUSUF faxed completed discharge paperwork to [facility] including transfer to extended care facility, signed medication list, any scripts, COVID screening tool, [facility] results and PAS/RR. Original in SNF folder and copy on pt's chart. SW in to speak with pt. SW updated pt that she will discharge to [facility] today. Pt states that her leg still hurts from when she fell. SW informed pt that medically pt is ready for discharge and pain can be managed at [facility]. Pt states understanding, agreeable to discharge to [facility] today. YUSUF spoke with RN, pt can transport via cot due to pt being high risk fall and needed supervision for transport. SW accessed trip assist and arranged transportation via cot for 1:30pm. Transportation form completed and placed on SNF folder and copy on pt's chart. SW updated Pt and RN on transportation time. Pt gave this worker permission to call her mother to update on discharge. YUSUF placed a call to pt's mother Mariam and updated her on discharge and transportation time. Mariam asked how pt will get her things from [facility]. YUSUF informed Mariam that this worker is not sure, encouraged Mariam to call [facility]. YUSUF placed a call to Eileen at [facility] and updated her on transportation time. YUSUF placed a call to pt's MATEO Julian and left message updating him pt will discharge to [facility] today. Plan: [facility] skilled today with Physician's transporting pt via cot at 1:30pm Katherin Tavares BATTERY CHECKER, SEC ACCOUNTANT
[2020-05-17 13:30] VITALS: PULSE 97
[2020-05-17] MEDS: Ipratropium/Albuterol Sulfate 3 ML AMPUL.NEB INHALATION (13:30)
--- NOTE | 2020-05-17 13:44 | NURSING ---
Report called to Terese the nurse at [facility].
== END 2020-05-17 14:05 | disposition skilled nursing facility (03) ==
LOC: ED 14:34 → MS3 14:49
PROVIDERS: Emergency Provider Emergency Medicine; PCP Family Medicine
DX: R53.81 Other malaise (principal); N39.0 Urinary tract infection, site not specified; B96.1 Klebsiella pneumoniae [K. pneumoniae] as the cause of diseases classified elsewhere; E11.9 Type 2 diabetes mellitus without complications; I10 Essential (primary) hypertension; E78.5 Hyperlipidemia, unspecified; K21.9 Gastro-esophageal reflux disease without esophagitis; M06.9 Rheumatoid arthritis, unspecified; E03.9 Hypothyroidism, unspecified; F32.9 Major depressive disorder, single episode, unspecified; F41.9 Anxiety disorder, unspecified; J44.9 Chronic obstructive pulmonary disease, unspecified; E66.01 Morbid (severe) obesity due to excess calories; M25.511 Pain in right shoulder; M25.521 Pain in right elbow; F17.210 Nicotine dependence, cigarettes, uncomplicated; M25.531 Pain in right wrist; M25.551 Pain in right hip; M25.571 Pain in right ankle and joints of right foot; G89.29 Other chronic pain; L40.50 Arthropathic psoriasis, unspecified; Z79.82 Long term (current) use of aspirin; Z79.51 Long term (current) use of inhaled steroids; Z79.899 Other long term (current) drug therapy; Z79.4 Long term (current) use of insulin; Z68.43 Body mass index [BMI] 50.0-59.9, adult; Z91.81 History of falling; Z86.14 Personal history of Methicillin resistant Staphylococcus aureus infection; Z86.16 Personal history of COVID-19
CPT/HCPCS: 73030; 73080; 73110; 73502; 73610; 76700; 82962; 87426; 94640; 96372; 97162; 97166; 97530; 97535; 97802; 99218; 99285; 99406; G0378

== ENCOUNTER 2020-07-02 11:35 | Inpatient (IN) | payer MEDICARE, MEDICAID, SELFPAY ==
[2020-07-02] VITALS (17 sets, daily range): BP systolic 80–129; BP diastolic 50–106; PULSE 100–120; RESP 18–21; TEMP 35.9–36.7; O2SAT 91–95; BMI 44.0
--- NOTE | 2020-07-02 11:50 | RAD_ITS ---
EXAM: XR CHEST, 1 VIEW CLINICAL INDICATION: confusion TECHNIQUE: Frontal view of the chest. This report was created using [employer] report generation technology. COMPARISON: 05/11/2020. FINDINGS: LUNGS AND PLEURAL SPACES: Unremarkable. No consolidation or edema. No pneumothorax. No effusion. HEART: Unremarkable. Cardiac silhouette not enlarged. MEDIASTINUM: Central airways and mediastinal contour are unremarkable. BONES/JOINTS: Unremarkable. SOFT TISSUES: Unremarkable. RAD/Chest 1 View (Portable) IMPRESSION: No radiographic evidence of acute cardiopulmonary disease and no significant interval change when compared to 05/11/2020. Electronically Signed: Wily Clement MD at 12:59 EDT , Service support ,
--- NOTE | 2020-07-02 11:50 | EKG12_ITS ---
Test Reason : ALTERED STATUS Blood Pressure : / mmHG Vent. Rate : 108 BPM Atrial Rate : 108 BPM P-R Int : 120 ms QRS Dur : 086 ms QT Int : 298 ms P-R-T Axes : 039 059 191 degrees QTc Int : 399 ms Sinus tachycardia with frequent Premature ventricular complexes Low voltage QRS Nonspecific ST and T wave abnormality Abnormal ECG Confirmed by ZOË DANG, EDDIE ([id number]), fan mail editor MURPHY GIMENEZ ([id number]) on 07/05/2020 2:54:18 PM Referred By: GARRY Confirmed By:KAYLA CAMP MD
--- NOTE | 2020-07-02 11:51 | CT_ITS ---
STUDY: CT BRAIN WITHOUT CONTRAST REASON FOR EXAM: Female, 54 years old. Altered ms RADIATION DOSAGE (If Supplied By Facility): CTDIvol = ( 44.99 ) mGy, DLP = ( 1015.46 ) mGycm TECHNIQUE: Transaxial CT imaging of the brain was performed without administration of intravenous contrast material. Coronal and sagittal reconstructions were performed. Individualized dose optimization techniques were used for this CT. COMPARISON: CT head without contrast 01/31/2020. FINDINGS: Normal soft tissue structures. Normal calvarium. Normal size ventricles and extra-axial spaces for the patient''s age. Normal white matter tracts of the cerebral hemispheres. Normal basal ganglia and thalami. Normal brainstem. Normal cerebellum. There is no intracranial hemorrhage. There are no findings of an acute ischemic infarction. Normal visualized paranasal sinuses. CT/Brain/Head without Contrast IMPRESSION: Normal unenhanced CT scan of the brain and unchanged since 01/31/2020. Electronically Signed: Wily Clement MD at 12:52 EDT , Service support ,
--- NOTE | 2020-07-02 12:00 | ED.VIS.GEN ---
History of Present Illness Chief Complaint: Alt LOC Informant: [employer], SNF Onset: Yesterday Narrative: Patient unable to give information due to current condition. [facility] reported increasing confusion since yesterday. From records currently Dung lift with wheelchair for transport. She is a DNR CCA. She is a diabetic blood glucose 170s by EMS. Reported sluggish pupils and slurred speech. However exam she is mumbling moving all 4 extremities. Reviewing records multiple urinary tract infections last one in April with Klebsiella. She has had similar episodes with metabolic encephalopathy from UTIs. Reported her pulse ox is 89% on EMS arrival. She was placed on oxygen. Reviewed discharge summaries for concerns of self inoculations causing UTIs. No additional information at this time. Prior similar symptoms: Yes Past Medical History - Allergies and Home Meds Allergies/Adverse Reactions: Allergies fentanyl Allergy (Verified 05/11/20 22:53) Rash Iodinated Contrast Media [Iodinated Contrast Media - IV Dye] Allergy (Verified 05/11/20 22:53) Hives CAN BE PRE-MEDICATED levofloxacin [From Levaquin] Allergy (Verified 05/11/20 22:53) Rash nitrofurantoin [From Macrobid] Allergy (Verified 05/11/20 22:53) Rash Sulfa (Sulfonamide Antibiotics) Allergy (Verified 05/11/20 22:53) Itching Primary Care Physician: Fredy Walsh MD [Primary Care Provider] - Past Medical History: - - Hypertension, hyperlipidemia, GERD, type 2 diabetes, anxiety and depression, UTIs, rheumatoid arthritis Surgical History: cholecystectomy, gastric bypass, - - Multiple back surgeries, ?6 Smoking Status: Current every day smoker - Family History Paternal Family History: Reports: Cancer - Lung CA, tobacco use. Offspring Family History: Reports: - - Obesity Maternal Family History: Reports: Stroke Review of Systems ROS: Unable to Obtain Physical Exam Vital Signs/Narrative: Vital Signs Temp Pulse Resp BP Pulse Ox 07/02/20 11:40 97.4 F L 105 H 21 H 113/102 H 92 Inital Vital Signs reviewed: Yes General: Obese, - - Patient altered unable to follow commands moves all 4 extremities Head: Normocephalic, Atraumatic Eyes: Perrl ENT: Moist mucous membranes Cardiovascular: Regular rhythm, Tachycardia Respiratory: Decreased Air Movement, - - Unable to follow commands with deep breaths. Abdomen: Soft, Nontender, Nondistended, Normal bowel sounds Extremities: - - Pulses intact x4, moves all 4 extremities Skin: Normal color, No rash Neurological: Confused Diagnostic/Tx/Re-eval Chest X-Ray - ED: 1 View, Read by ED Physician, Read by Radiologist, No Acute Disease Clinical Impression(s) from Imaging Studies Chest X-Ray 07/02/20 11:50 IMPRESSION: No radiographic evidence of acute cardiopulmonary disease and no significant interval change when compared to 05/11/2020. Electronically Signed: Wily Clement MD at 12:59 EDT , Service support , Brain CT 07/02/20 11:51 IMPRESSION: Normal unenhanced CT scan of the brain and unchanged since 01/31/2020. Electronically Signed: Wily Clement MD at 12:52 EDT , Service support , Abnormal Lab Results 07/02/20 07/02/20 07/02/20 12:00 12:00 12:00 WBC 11.4 H RBC 4.05 L Hgb 11.9 L Hct 37.4 MCV 92.3 MCH 29.4 MCHC 31.8 L RDW Std Deviation 56.0 H RDW Coeff of Ralph 16.7 H Plt Count 241 MPV 11.1 Immature Gran % (Auto) 0.300 Neut % (Auto) 62.5 Lymph % (Auto) 20.4 [place] % (Auto) 13.6 H Eos % (Auto) 2.5 Baso % (Auto) 0.7 Absolute Neuts (auto) 7.1 Absolute Lymphs (auto) 2.32 Nucleated RBC % 0 Differential Comment COMMENT Diff Path Review July PT 14.4 INR 1.2 APTT 31.8 Sodium 147 H Potassium 3.2 L Chloride 113 H Carbon Dioxide 23.0 Anion Gap 11 BUN 16 Creatinine 0.76 Estim Creat Clear Calc 85.36 Est GFR (MDRD) Af Amer 102 Est GFR (MDRD) Non-Af 84 BUN/Creatinine Ratio 21.0 H Glucose 105 Lactic Acid Calcium 8.6 Total Bilirubin 0.90 AST 38 H ALT 24 Alkaline Phosphatase 94 Total Protein 6.8 Albumin 2.6 L Globulin 4.2 Albumin/Globulin Ratio 0.6 L Urine Color Urine Clarity Urine pH Ur Specific [place] Urine Protein Urine Glucose (UA) Urine Ketones Urine Occult Blood Urine Nitrite Urine Bilirubin Urine Urobilinogen Ur Leukocyte Esterase Urine RBC Urine WBC Ur Squamous Epith Cells Amorphous Sediment Urine Bacteria Urine Mucus 07/02/20 07/02/20 12:00 12:29 WBC RBC Hgb Hct MCV MCH MCHC RDW Std Deviation RDW Coeff of Ralph Plt Count MPV Immature Gran % (Auto) Neut % (Auto) Lymph % (Auto) [place] % (Auto) Eos % (Auto) Baso % (Auto) Absolute Neuts (auto) Absolute Lymphs (auto) Nucleated RBC % Differential Comment Diff Path Review PT INR APTT Sodium Potassium Chloride Carbon Dioxide Anion Gap BUN Creatinine Estim Creat Clear Calc Est GFR (MDRD) Af Amer Est GFR (MDRD) Non-Af BUN/Creatinine Ratio Glucose Lactic Acid 1.6 Calcium Total Bilirubin AST ALT Alkaline Phosphatase Total Protein Albumin Globulin Albumin/Globulin Ratio Urine Color Radha Urine Clarity Cloudy Urine pH 6.0 Ur Specific [place] 1.025 Urine Protein 30 H Urine Glucose (UA) Normal Urine Ketones 15 H Urine Occult Blood 10 H Urine Nitrite Positive H Urine Bilirubin 1 H Urine Urobilinogen 4 H Ur Leukocyte Esterase 500 H Urine RBC 0-5 SEEN Urine WBC 25-50 SEEN Ur Squamous Epith Cells 0-5 SEEN Amorphous Sediment 1+ URATE Urine Bacteria 2+ Urine Mucus 0 SEEN - EKG Initial EKG Interpretation: Sinus Rhythm - Sinus rate of 108, no ST or T wave changes, occasional PVCs. - Medical Decision Making Patient tachycardic respiratory rate in the 20s with confusion, sepsis work-up initiated. Patient started on IV fluids, lactic acid returned at 1.6. White count 11 range. Creatinine normal. Cath urine was positive for infection. She given Rocephin IV. Chest x-ray negative head CT negative. Reevaluation per nursing patient did awaken transiently scratched her and spoke in sentences and laid back down. When I evaluated the patient, walking away she did tap my elbow getting my attention then laid back down. Blood pressure stable. Her potassium was 3.2. Due to her unclear condition at this time, ordered for IV replacement. EKG was sinus with occasional PVCs. I spoke with hospitalist, Dr. Benjamin who knows her well, will admit to [facility] telemetry for further inpatient management. - Critical Care Time Critical care time (excluding procedures): 30-74 minutes ED Disposition - Plan for ED Patient: Disposition: Acute Care Hospital [facility] Diagnosis: Sepsis, UTI (urinary tract infection), Acute encephalopathy Referrals: Fredy Walsh MD [Primary Care Provider] -
[2020-07-02] MEDS: 0.9% Normal Saline 1,000 ML 150 ML IV (12:10)
[2020-07-02 12:24] LABS: International Normalized Ratio 1.2; Prothrombin Time (Protime)PT. 14.4 SECONDS (11.7-14.9)
[2020-07-02 12:25] LABS: Absolute Lymphocyte Count 2.32 X10^3/uL (0.83-4.51); Absolute Neutrophil Count 7.1 X10^3/uL (2.0-7.7); Basophil# 0.08 X10^3/uL; Basophil% 0.7 % (0-1); Eosinophil# 0.29 X10^3/uL; Eosinophils% 2.5 % (0-5); Hematocrit 37.4 % (37-47); Hemoglobin 11.9 g/dL (12.0-15.0); Lymphocyte # 2.32 X10^3/ul (4.0); Lymphocyte % 20.4 % (19-41); Mean Corp Hgb Conc 31.8 g/dL (32-36); Mean Corpuscular Hgb 29.4 pg (27.0-32.0); Mean Corpuscular Volume 92.3 fL (81-99); Mean Platelet Vol. 11.1 fl (6.2-12.0); Monocyte# 1.55 X10^3/uL; Monocyte% 13.6 % (0-10); NRBC Flagged by Analyzer 0 % (0-5); Neutrophil # 7.12 X10^3/uL (2.7-7.7); Neutrophil % 62.5 % (47-70); POSITIVE DIFFERENTIAL YES; Partial Thromboplast Time 31.8 Seconds (24.1-36.2); Platelet Count 241 K/mm3 (150-450); RBC Distribution Width CV 16.7 % (11.6-14.6); Red Blood Count 4.05 M/mm3 (4.2-5.4); White Blood Count 11.4 K/mm3 (4.4-11.0)
[2020-07-02 12:26] LABS: Differential Indicated SCAN CRITERIA MET
[2020-07-02 12:31] LABS: ALB/GLOB Ratio 0.6 RATIO (0.9-2.4); AST(SGOT) 38 U/L (15-37); Alanine Aminotransfer ALT/SGPT 24 U/L (13-56); Albumin, Serum 2.6 g/dL (3.2-5.0); Alkaline Phosphatase 94 U/L (45-117); Anion Gap 11 (5-15); BUN 16 mg/dL (7-18); Calcium,Total 8.6 mg/dL (8.5-10.1); Chloride 113 mmol/L (98-107); Creatinine, Serum 0.76 mg/dL (0.55-1.02); EST Glomerular Filtration Rate 84 mL/min (>60); Est Glom Filt Rate - Afr Amer 102 mL/min (>60); Estimated Creatinine Clearance 85.36 ml/min; Globulin 4.2 g/dL (2.2-4.2); Glucose 105 mg/dL (74-106); Potassium 3.2 mmol/L (3.5-5.1); Protein, Total 6.8 g/dL (6.4-8.2); Sodium Level 147 mmol/L (136-145)
[2020-07-02 12:37] LABS: Mucous, Urine 0 SEEN /hpf (<or=2+)
[2020-07-02 12:44] LABS: Color, Urine Amber (Yellow); Glucose, Dipstick Normal (Normal); Ketone-Dipstick 15 mg/dl (Negative); Leukocyte Esterase-Dipstick 500 /ul (Negative); Nitrite-Dipstick Positive (Negative); Occult Blood-Urine 10 /ul (Negative); Protein-Dipstick 30 mg/dl (Negative); Specific Gravity, Urine 1.025 (1.002-1.030); Urine Clarity Cloudy (Clear); Urine Urobilinogen 4 mg/dl (Normal)
[2020-07-02 12:46] LABS: Lactic Acid 1.6 mmol/L (0.4-1.9)
[2020-07-02 12:47] LABS: Urine Bilirubin Dipstick 1 mg/dL (Negative)
[2020-07-02 12:52] LABS: Amorphous Sediment 1+ URATE; Bacteria 2+ /hpf (None Seen); Red Blood Cells-Urine 0-5 SEEN /hpf (0-5); Squamous Epithelial Cells - UA 0-5 SEEN /hpf (5-10); White Blood Cells 25-50 SEEN /hpf (0-5)
--- NOTE | 2020-07-02 13:35 | ED.RN ---
pt in bed and still mostly incomprensible. attempted to perform oral care d/t tongue being dry and cracked but pt shuts and swatted and scratched at this rn. when told that doesnt need to hit stated, it didnt hurt did it? pt rolled eyes when said that appears to have urine infection. waiting on covid test before chart re eval
[2020-07-02] MEDS: Ceftriaxone 1 GM/50 ML BAG IV (14:18)
--- NOTE | 2020-07-02 14:24 | HP.PCM_ITS ---
Problem List (1) Acute encephalopathy Status: Acute (2) Sepsis Status: Acute Qualifiers: Sepsis type: sepsis due to unspecified organism Sepsis acute organ dysfunction status: unspecified Qualified Code(s): A41.9 - Sepsis, unspecified organism (3) UTI (urinary tract infection) Status: Acute (4) Morbid obesity Status: Chronic (5) Chronic obstructive lung disease Status: Chronic Qualifiers: COPD type: emphysema Emphysema type: centrilobular Qualified Code(s): J43.2 - Centrilobular emphysema (6) Rheumatoid arthritis Status: Chronic Qualifiers: Rheumatoid arthritis location: unspecified site Rheumatoid factor presence: unspecified presence Qualified Code(s): M06.9 - Rheumatoid arthritis, unspecified (7) Diabetes mellitus, type II Status: Chronic Qualifiers: Diabetes mellitus halfway insulin use: without halfway use Diabetes mellitus complication status: with neurologic complications Diabetes mellitus complication detail: with polyneuropathy Qualified Code(s): E11.42 - Type 2 diabetes mellitus with diabetic polyneuropathy (8) Psoriatic arthritis Status: Chronic (9) HLD (hyperlipidemia) Status: Chronic Qualifiers: Hyperlipidemia type: unspecified Qualified Code(s): E78.5 - Hyperlipidemia, unspecified (10) Hypothyroidism Status: Chronic Qualifiers: Hypothyroidism type: unspecified Qualified Code(s): E03.9 - Hypothyroidism, unspecified (11) Anxiety and depression Status: Chronic (12) GERD (gastroesophageal reflux disease) Status: Chronic Qualifiers: Esophagitis presence: esophagitis presence not specified Qualified Code(s): K21.9 - Gastro-esophageal reflux disease without esophagitis (13) HTN (hypertension) Status: Chronic Qualifiers: Hypertension type: essential hypertension Qualified Code(s): I10 - Essential (primary) hypertension History of Present Illness Date of Admission: 07/02/20 Chief Complaint: Confusion, lethargy. The patient is a 54 y/o F w/ PMHx: HTN, HLD, Hypothyroidism, GERD, Rheumatoid arthritis/Psoriatic arthritis, Depression and Anxiety, Chronic COPD w/ ongoing Tobacco use, Morbid obesity, Diabetes mellitus type II, Frequent UTIs, Anxiety and Depression/? Bipolar disorder who presents to the [facility] ED on 07/02/20 with history of creasing confusion over the last 24 hours with lethargy and altered speech reportedly mumbling prompting EMS call with blood sugar noted to be 170 and pulse ox noted to be 89%, placed on oxygen with some improvement prompting EMS to bring her to the ED for evaluation. Patient has had similar presentations with encephalopathy with frequent urinary tract infections. EMS did report that she was mildly tachypneic upon their evaluation. Work-up in the ED included T 97.1, heart rate 105, BP 129/106, respiratory rate 18, 92% on 2 L nasal cannula, CBC with WC 11.4, hemoglobin 1.9, platelet 241 without marked shift, unremarkable coags, CMP with sodium 147, potassium 3.2, chloride 113 otherwise not marked appearing, lactic acid 1.6, urinalysis with specific gravity elevated 1.025, protein 30, ketone 15, occult blood 10, positive nitrite, 1+ bilirubin, 4+ urobilinogen, 500 leukocyte esterase, 25-50 urine WBCs, 2+ urine bacteria, urine culture pending per ED, blood culture x2 pending per ED, negative SARS rapid Covid antigen, chest x-ray with no acute cardiopulmonary findings and no significant change from 05/11/2020 chest x-ray at that time, CT of the brain with no acute intracranial findings. Most recent urine cultures 05/11/2020 with Klebsiella and 02/19/2020 with Pseudomonas, both with decent sensitivities. Past Medical History Past Medical History (Chronic Problems): Chronic Problems (Last Reviewed 05/14/20 @ 14:[address] Tk Jose DO) Morbid obesity (Chronic) Bronchiectasis (Chronic) Chronic obstructive lung disease (Chronic) Cigarette smoker (Chronic) Rheumatoid arthritis (Chronic) Chronic back pain (Chronic) Obesity, morbid, BMI 50 or higher (Chronic) Drug-seeking behavior (Chronic) Diabetes mellitus, type II (Chronic) Psoriatic arthritis (Chronic) HLD (hyperlipidemia) (Chronic) Hypothyroidism (Chronic) Anxiety and depression (Chronic) GERD (gastroesophageal reflux disease) (Chronic) HTN (hypertension) (Chronic) Medical History: Medical History (Last Reviewed 05/14/20 @ 14:[address] Tk Jose DO) Severe sepsis (Acute) A41.9, R65.20 Chronic obstructive lung disease (Chronic) J44.9 Cigarette smoker (Chronic) F17.210 Rheumatoid arthritis (Chronic) M06.9 Chronic back pain (Chronic) M54.9, G89.29 Obesity, morbid, BMI 50 or higher (Chronic) E66.01 Drug-seeking behavior (Chronic) Z76.5 Diabetes mellitus, type II (Chronic) E11.9 Psoriatic arthritis (Chronic) L40.50 HLD (hyperlipidemia) (Chronic) E78.5 Hypothyroidism (Chronic) E03.9 Anxiety and depression (Chronic) F41.9, F32.9 GERD (gastroesophageal reflux disease) (Chronic) K21.9 HTN (hypertension) (Chronic) I10 Overdose (Resolved) T50.901A Unresponsive episode (Resolved) Abdominal pain (Inactive) R10.9 Acute hypoxemic respiratory failure (Inactive) J96.01 Community acquired pneumonia (Inactive) J18.9 Diarrhea (Inactive) R19.7 Diarrhea (Inactive) R19.7 Lower abdominal pain (Inactive) R10.30 MRSA (methicillin resistant staph aureus) culture positive (Inactive) Z22.322 Nausea and vomiting (Inactive) R11.2 Pneumonia, bacterial (Inactive) J15.9 SIRS (systemic inflammatory response syndrome) (Inactive) R65.10 Severe sepsis (Inactive) A41.9, R65.20 UTI (urinary tract infection) (Inactive) N39.0 UTI (urinary tract infection) (Inactive) N39.0 UTI (urinary tract infection) (Inactive) N39.0 Allergies fentanyl Allergy (Verified 05/11/20 22:53) Rash Iodinated Contrast Media [Iodinated Contrast Media - IV Dye] Allergy (Verified 05/11/20 22:53) Hives CAN BE PRE-MEDICATED levofloxacin [From Levaquin] Allergy (Verified 05/11/20 22:53) Rash nitrofurantoin [From Macrobid] Allergy (Verified 05/11/20 22:53) Rash Sulfa (Sulfonamide Antibiotics) Allergy (Verified 05/11/20 22:53) Itching Home Medications: Ambulatory Orders Medication Instructions Recorded Duloxetine HCl 60 mg PO DAILY 08/28/15 Levothyroxine [Synthroid] 150 mcg PO DAILY 08/28/15 Hydroxychloroquine [Plaquenil] 300 mg PO DAILYCM 06/05/18 Amitriptyline HCl [Elavil] 100 mg PO DAILY 01/31/20 Aspirin [Aspirin, Baby] 81 mg PO DAILY@0800 01/31/20 Cholecalciferol (Vitamin D3) 50 mcg PO DAILY 01/31/20 [Vitamin D3] Fluticasone/Vilanterol [Breo 1 puff INHALATION DAILY 01/31/20 Ellipta 200-25 Mcg INH] Melatonin 10 mg PO QHS 01/31/20 Omeprazole [Prilosec] 20 mg PO DAILY 01/31/20 Quetiapine Fumarate 300 mg PO QHS 01/31/20 Simvastatin 40 mg PO QHS 01/31/20 Sitagliptin Phosphate [Januvia] 100 mg PO DAILY 01/31/20 Tofacitinib Citrate [Xeljanz] 5 mg PO BID 01/31/20 Furosemide [Lasix] 20 mg PO DAILY 02/19/20 Potassium Chloride [Klor-Con M10] 20 meq PO DAILY 02/19/20 Ascorbic Acid [Vitamin C] 500 mg PO DAILY 05/12/20 L.acidoph,Paracasei, B.lactis 1 ea PO DAILY 05/12/20 [Probiotic] Oxybutynin [Ditropan] 10 mg PO DAILY 05/12/20 Ipratropium/Albuterol Respimat 1 puff INHALATION BID 05/14/20 [Combivent Respimat Inhal [place]] Acetaminophen [Tylenol] 1,000 mg PO TID PRN 07/02/20 Atorvastatin Calcium [Lipitor] 40 mg PO QHS 07/02/20 Cranberry Fruit Extract [Cranberry] 750 mg PO BID 07/02/20 Gabapentin [Neurontin] 400 mg PO TIDCM 07/02/20 Hydroxyzine Pamoate [Vistaril] 50 mg PO 4X/DAY PRN PRN 07/02/20 Ondansetron HCl [Zofran] 4 mg PO Q12H PRN 07/02/20 Potassium Chloride [Klor-Con 10] 10 mg PO DAILY 07/02/20 Surgical History: cholecystectomy, gastric bypass, - - Multiple back surgeries ? 6. Psychiatric History: Anxiety, Bipolar, Depression [employer] History: No pertinent [employer]AND DEPARTMENT [employer] history Lives: Prison Smoking Status: Former smoker Tobacco Use: Cigarettes Alcohol: None Drugs: None - *Family History Paternal History Items: Cancer - Father with history of Lung CA, tobacco use. Offspring History Items: - - Obesity, no history of heart disease, diabetes, cancer. Maternal History Items: Stroke Review of Systems Constitutional: Reports: Anorexia, Chills, Malaise, Weakness, Fatigue. Denies: Fever, Weight Change HEENT: Denies: Head Aches, Sinus Congestion, Sinus Drainage Cardiovascular: Denies: Chest Pain, Palpitations Respiratory: Reports: Shortness of breath upon exertion. Denies: Cough, Shortness of Breath, Shortness of breath at rest, Sputum production, Wheezing Gastrointestinal: Denies: Abdominal Pain, Nausea, Vomiting Genitourinary: Reports: Dysuria, Frequency Musculoskeletal: Reports: Back Pain, Joint Pain, Muscle pain. Denies: Joint Tenderness Skin: Reports: Skin Changes. Denies: Rash, Wounds Neurological: Reports: Confusion. Denies: Focal weakness, Numbness, Tingling Psychiatric: Reports: Anxiety, Depression. Denies: Homicidal Ideations, Suicidal Ideations Hematologic/ Lymphatic: Reports: Anemia. Denies: Easy Bruising, Easy Bleeding VTE Information - Inpt Only VTE Present on Admission: No VTE Mechan Device Prophylaxis: SCD's VTE Pharm Prophylaxis ordered?: Yes Patient Problems: Active and Suspected Problems (Last Reviewed 05/14/20 @ 14:[address] Tk Jose, DO) UTI (urinary tract infection) (Acute) Acute encephalopathy (Acute) Sepsis (Acute) Subjective: Patient laying in the ED bed, occasionally moaning, will answer some questions but very difficult exam, improves when distracted. Objective: Physical Examination: General: awake, alert, oriented to self, place but frequently continues to moan, able to note that she is uncomfortable, intermittently following commands, laying in the ED bed, similar to prior presentation with confused appearance. Skin: normal color, turgor, no icterus, cyanosis except occasional abrasion. HEENT: AT/NC, EOMI, PERRLA, dry MM, no carotid bruits or JVD noted. Lungs: Diminished breath sounds, greater bases, no evidence of distress, no rales, ronchi or wheezing. Heart: Mildly tachycardic with regular rhythm; no gallop, rub audible. Abdomen: soft, morbidly obese habitus, no obvious tenderness palpation, no obvious distention, distant mildly hyperactive BS, no obvious HSM although examination difficult given habitus. Extremities: no cyanosis, clubbing, or edema. Neurological: patient awake, alert, oriented as noted to self and place but not to baseline intact, encephalopathic, lethargic although intermittently agitated while in the ED, pupils equally reactive to light and accomodation; cranial nerves II-XII grossly normal, moving all 4 extremities, no obvious focal deficits, strength difficult to assess given current presentation however appears moderately to severely global decrease. Psychiatric: affect appears lethargic with intermittent periods of agitation, no acute evidence of depressive or anxiety feelings but difficult assessment given acute presentation. - Physical Exam Vitals/I&O's: Vital Signs Temp Pulse Resp BP Pulse Ox 97.1 F L 105 H 18 129/106 H 92 07/02/20 13:29 07/02/20 13:00 07/02/20 13:00 07/02/20 13:00 07/02/20 13:00 Oxygen Flow Rate (L/min) 2 Oxygen Delivery Method Nasal Cannula Weight: 289 lb 7.471 oz Body Mass Index (BMI) 44.0 Finger Stick Blood Glucose 294 Microbiology Past 72 Hours 07/02/20 12:27 Mucosa - Nose SARS-CoV-2 Antigen (Rapid) - Final Laboratory Results 07/02/20 12:00: WBC 11.4 H, RBC 4.05 L, Hgb 11.9 L, Hct 37.4, MCV 92.3, MCH 29.4, MCHC 31.8 L, RDW Std Deviation 56.0 H, RDW Coeff of Ralph 16.7 H, Plt Count 241, MPV 11.1, Immature Gran % (Auto) 0.300, Neut % (Auto) 62.5, Lymph % (Auto) 20.4, [place] % (Auto) 13.6 H, Eos % (Auto) 2.5, Baso % (Auto) 0.7, Absolute Neuts (auto) 7.1, Absolute Lymphs (auto) 2.32, Nucleated RBC % 0, Differential Comment COMMENT, Diff Path Review July07/02/20 12:00: PT 14.4, INR 1.2, APTT 31.8 07/02/20 12:00: Sodium 147 H, Potassium 3.2 L, Chloride 113 H, Carbon Dioxide 23.0, Anion Gap 11, BUN 16, Creatinine 0.76, Estim Creat Clear Calc 85.36, Est GFR (MDRD) Af Amer 102, Est GFR (MDRD) Non-Af 84, BUN/Creatinine Ratio 21.0 H, Glucose 105, Calcium 8.6, Total Bilirubin 0.90, AST 38 H, ALT 24, Alkaline Phosphatase 94, Total Protein 6.8, Albumin 2.6 L, Globulin 4.2, Albumin/Globulin Ratio 0.6 L 07/02/20 12:00: Lactic Acid 1.6 07/02/20 12:29: Urine Color Radha, Urine Clarity Cloudy, Urine pH 6.0, Ur Specific [place] 1.025, Urine Protein 30 H, Urine Glucose (UA) Normal, Urine Ketones 15 H, Urine Occult Blood 10 H, Urine Nitrite Positive H, Urine Bilirubin 1 H, Urine Urobilinogen 4 H, Ur Leukocyte Esterase 500 H, Urine RBC 0-5 SEEN, Urine WBC 25-50 SEEN, Ur Squamous Epith Cells 0-5 SEEN, Amorphous Sediment 1+ URATE, Urine Bacteria 2+, Urine Mucus 0 SEEN Current Medications Sodium Chloride () 1,000 mls @ 150 mls/hr IV .Q6H40M MAX Last Admin: 07/02/20 12:10 Dose: 150 mls/hr Documented by: Ceftriaxone Sodium (Rocephin) 1 gm in 50 mls @ 100 mls/hr IV X1 ONE Stop: 07/02/20 14:30 Last Admin: 07/02/20 14:18 Dose: 100 mls/hr Documented by: Assessment/Plan All Active Problems (Last Reviewed 05/14/20 @ 14:[address] Tk Jose, DO) JANESSA (acute kidney injury) (Acute) UTI (urinary tract infection) (Acute) COVID-19 (Acute) Lactic acidosis (Acute) Declining functional status (Acute) Fall (Acute) Debility (Acute) Acute encephalopathy (Acute) Sepsis (Acute) Severe sepsis (Acute) Acute respiratory failure with hypoxia (Resolved) Aspiration pneumonia (Resolved) Diarrhea (Resolved) History of Clostridium difficile (Resolved) Overdose (Resolved) Unresponsive episode (Resolved) Acute exacerbation of chronic obstructive pulmonary disease (COPD) (Ruled-out) SIRS with Severe sepsis due to UTI (Ruled-out) Urinary tract infection (Ruled-out) The patient is a 54 y/o F w/ PMHx: HTN, HLD, Hypothyroidism, GERD, Rheumatoid arthritis/Psoriatic arthritis, Depression and Anxiety, Chronic COPD w/ ongoing Tobacco use, Morbid obesity, Diabetes mellitus type II, Frequent UTIs, Anxiety and Depression/? Bipolar disorder who presents to the [facility] ED on 07/02/20 with history of creasing confusion over the last 24 hours with lethargy and altered speech reportedly mumbling prompting EMS call with blood sugar noted to be 170 and pulse ox noted to be 89%, placed on oxygen with some improvement prompting EMS to bring her to the ED for evaluation. 1. Acute encephalopathy secondary to Acute Sepsis secondary to Acute complicated urinary tract infection with prior history of Pseudomonas: We will admit to medical surgical floor, temporarily made on telemetry given a septic presentation, very similar to prior presentations with previous noted concerns for possible self inoculation and drug-seeking behavior, given confusion we will hold off on any sedate of medications, maintain on IV cefepime pending urine cultures given prior noted history of Pseudomonas with alteration once species and sensitivities have resulted, monitor for urinary retention, straight catheterization with conversion to Almazan catheter if necessary, once mental status improving would allow oral intake, monitor I's and O's, maintain on fall precautions, PT/OT/case management consultation for discharge planning possibly to assisted living/alf facility again. 2. Hypokalemia: Admission K+ 3.2, magnesium level requested, supplementation given, repeat level in AM. 3. Chronic COPD: Will maintain on oxygen with wean as tolerated to room air, continue ATC duonebs, PRN albuterol, HOB, IS parameters. 4. Diabetes mellitus type II: Hold oral home regimen, ADA diet once intake safe, accu checks w/ ISS. 5. Hypertension: Given patient elevated specific gravity upon presentation we will temporarily hold Lasix, judiciously hydrating, resume once appropriate, PRN hydralazine. 6. Hyperlipidemia: Continue home statin regimen. 7. Hypothyroidism: Continue home synthroid regimen. 8. Rheumatoid arthritis/psoriatic arthritis: Continue patient out patient regimen including Plaquenil and Tofacitinib. 9. Tobacco Abuse: Encouraged cessation, inpatient consultation per RT, NR if desired. 10. Morbid Obesity: Weight loss and lifestyle changes encouraged, nutrition consulted. 11. Anxiety and depression/? Bipolar disorder: We will continue patient home duloxetine regimen. We will temporarily hold patient Seroquel as well as Vistaril given sedation but resume patient Seroquel once clinically improving given underlying history. 12. DVT prophylaxis: SCDs, Lovenox. 13. CODE status: DNR-CCA, no intubation status per SNF paperwork. Inpatient E&M: [id number] Init Hosp L3
--- NOTE | 2020-07-02 15:36 | NURSING ---
dr marks aware of manual bp 80/50. will hold till sbp >100
[2020-07-02] MEDS: 0.9% Normal Saline 1,000 ML 999 ML IV (15:37)
--- NOTE | 2020-07-02 16:21 | ED.RN ---
pt had 3/4 liter and bp up to 120/81 manually. pt belongings packed and pt to ms3 via bed with rn.
[2020-07-02] MEDS: Potassium Chloride 10mEq/100mL 10 MEQ/100 ML IV.SOLN. 100 MEQ IV BOLUS ×4 (16:52→21:32)
[2020-07-02] MEDS: 0.9% Normal Saline 1,000 ML 100 ML IV (17:03)
[2020-07-02 17:05] LABS: Bedside Glucose 95 mg/dL (70-110)
[2020-07-02 17:25] LABS: Magnesium 1.6 mg/dL (1.6-2.6)
[2020-07-02] MEDS: Ipratropium/Albuterol Sulfate 3 ML AMPUL.NEB INHALATION (18:40)
[2020-07-02] MEDS: 0.9% Saline Lock 10 ML Syringe IV (18:58)
[2020-07-02 22:00] LABS: Bedside Glucose 98 mg/dL (70-110)
--- NOTE | 2020-07-02 23:39 | NURSING ---
Spoke to RN from the [facility], states based on the note previous RN wrote pt increasing confusion, refusing to take meds, not talking much and became inc. of stool, states pt was A&O before.
[2020-07-03] VITALS (15 sets, daily range): BP systolic 118–138; BP diastolic 64–106; PULSE 103–119; RESP 17–22; TEMP 36.6–37.3; O2SAT 95–97
[2020-07-03] MEDS: Ipratropium/Albuterol Sulfate 3 ML AMPUL.NEB INHALATION ×4 (01:05→19:06)
[2020-07-03] MEDS: 0.9% Normal Saline 1,000 ML 100 ML IV (03:24)
[2020-07-03 06:41] LABS: Absolute Lymphocyte Count 2.01 X10^3/uL (0.83-4.51); Absolute Neutrophil Count 6.4 X10^3/uL (2.0-7.7); Basophil# 0.07 X10^3/uL; Basophil% 0.7 % (0-1); Eosinophil# 0.19 X10^3/uL; Eosinophils% 1.9 % (0-5); Hematocrit 34.3 % (37-47); Hemoglobin 10.9 g/dL (12.0-15.0); Lymphocyte # 2.01 X10^3/ul (4.0); Lymphocyte % 20.1 % (19-41); Mean Corp Hgb Conc 31.8 g/dL (32-36); Mean Corpuscular Hgb 29.9 pg (27.0-32.0); Mean Platelet Vol. 10.9 fl (6.2-12.0); Monocyte# 1.35 X10^3/uL; Monocyte% 13.5 % (0-10); NRBC Flagged by Analyzer 0 % (0-5); Neutrophil # 6.36 X10^3/uL (2.7-7.7); Neutrophil % 63.6 % (47-70); Platelet Count 187 K/mm3 (150-450); RBC Distribution Width CV 17.6 % (11.6-14.6); RBC Distribution Width SD 59.8 fl (35.1-43.9); Red Blood Count 3.65 M/mm3 (4.2-5.4)
[2020-07-03 06:45] LABS: Bedside Glucose 102 mg/dL (70-110)
[2020-07-03 07:04] LABS: ALB/GLOB Ratio 0.6 RATIO (0.9-2.4); AST(SGOT) 34 U/L (15-37); Alanine Aminotransfer ALT/SGPT 20 U/L (13-56); Albumin, Serum 2.4 g/dL (3.2-5.0); Alkaline Phosphatase 87 U/L (45-117); Anion Gap 10 (5-15); BUN 14 mg/dL (7-18); BUN/Creat Ratio 22.7 RATIO (10-20); Calcium,Total 7.9 mg/dL (8.5-10.1); Chloride 118 mmol/L (98-107); Creatinine, Serum 0.62 mg/dL (0.55-1.02); EST Glomerular Filtration Rate 107 mL/min (>60); Est Glom Filt Rate - Afr Amer 130 mL/min (>60); Estimated Creatinine Clearance 104.64 ml/min; Globulin 3.9 g/dL (2.2-4.2); Glucose 101 mg/dL (74-106); Potassium 3.4 mmol/L (3.5-5.1); Protein, Total 6.3 g/dL (6.4-8.2); Sodium Level 148 mmol/L (136-145)
[2020-07-03] MEDS: Enoxaparin 40 MG/0.4 ML Syringe SC (09:24)
--- NOTE | 2020-07-03 10:10 | CASEMGMT ---
Addendum entered by Katherin Tavares 07/03/20 13:59: Pt does have CM Justen Arcadia ([phone]). YUSUF placed a call to Justen and left message updating him on pt's admission to [facility]. Original Note: Social Work Note YUSUF reviewed chart. Pt is listed as being from [facility]. Per notes, pt is currently not communicating, not responding to name, simple commands. YUSUF placed a call to Eileen at [facility]. Pt was at [facility] under Medicaid, is on bed hold, can return to [facility]. Eileen states they were working on trying to get pt back to [facility] but pt would state that she couldn't do therapy but when pt's family would come and visit her, pt would get out of chair and meet with her family. YUSUF faxed updated clinicals to [facility]. SW to continue to follow. Katherin Tavares ROAD PATCHER, HOT TAMALE WORKER
[2020-07-03] MEDS: 0.9% Saline Lock 10 ML Syringe IV ×2 (11:03→21:11)
[2020-07-03 11:05] LABS: Bedside Glucose 110 mg/dL (70-110)
[2020-07-03 11:10] LABS: Allen Test Positive; Base Excess -5 mmol/L (-2 to +2); Bicarbonate 18.8 mmol/L (22-26); Blood Gas Specimen Type ART; FI02 28; O2 Delivery Device Cannula; PO2 156 mmHG (75-100); SITE L Radial; SO2 100 % (95-99); Total Carbon Dioxide 20 mmol/L; pCO2 25.6 mmHg (35-45); pH 7.47 (7.35-7.45)
--- NOTE | 2020-07-03 11:51 | CASEMGMT ---
Palliative Care Screening Tool completed due to pt being a [employer] 3. Pt met criteria. No order received due to pt being A&O x0.
[2020-07-03 12:28] LABS: Pathologist Review Reviewed
[2020-07-03] MEDS: 0.9% Normal Saline 1,000 ML 150 ML IV (12:43)
[2020-07-03 17:05] LABS: Bedside Glucose 141 mg/dL (70-110)
--- NOTE | 2020-07-03 17:40 | PN_ITS ---
Patient Problems: Active and Suspected Problems (Last Reviewed 05/14/20 @ 14:[address] Tk Jose, DO) UTI (urinary tract infection) (Acute) Acute encephalopathy (Acute) Sepsis (Acute) Sepsis (Acute) UTI (urinary tract infection) (Acute) Acute encephalopathy (Acute) Subjective: Patient was seen and examined today, she remains nonverbal, moaning at times, she does respond to painful stimuli. Patient's mother inquired as to whether neurology could see the patient-I told nursing to tell the patient's mother that I did not feel that this would be beneficial and that would we would have to wait to see if the patient's mental status improved, patient had a CT on admission and there is no evidence for stroke on this patient, it is likely she has a metabolic encephalopathy. We do not have an in-house neurologist I can physically examined the patient. - Physical Exam Vitals/I&O's: Vital Signs Temp Pulse Resp BP Pulse Ox 99.1 F 119 H 17 124/106 H 96 07/03/20 13:49 07/03/20 13:49 07/03/20 13:49 07/03/20 13:49 07/03/20 13:49 Oxygen Flow Rate (L/min) 2 Oxygen Delivery Method Nasal Cannula Weight: 131.2 kg Body Mass Index (BMI) 44.0 Finger Stick Blood Glucose 294 Intake and Output for Last 24 Hours 07/01/20 07/02/20 07/03/20 23:59 23:59 23:59 Intake Total 2142.5 / 2142.5 2301.67 / 2301.67 Output Total 350 / 350 350 / 350 Balance 1792.5 / 1792.5 1951.67 / 1951.67 General: No apparent distress, Well developed, Lethargic HEENT: Atraumatic, PERRLA, EOMI, Normocephalic Neck: Supple, No JVD, Trachea Midline, Thyroid Normal Size and Texture Lungs: Clear to auscultation, Normal air movement, No rhonchi, No wheeze, No rales Cardiovascular: Regular rate, Regular Rhythm, Normal S1, Normal S2, No murmurs, PMI Normal, No rub noted, No Gallop Abdomen: Bowel Sounds Present, Soft, Non Tender, Non-Distended, Obese Extremities: No clubbing, No cyanosis, No edema, Capillary Refill Less than 3 Seconds Skin: No rashes, No breakdown Musculoskeletal: No Tenderness to Palpation of Joints or Extremities Neurological: Cranial nerves II-XII grossly intact, Neuro grossly intact, Sensory exam intact to light touch and pain Psych/Mental Status: - - Patient is lethargic, she does respond to painful stimuli and she responds to verbal stimulation but does not talk. Microbiology Past 72 Hours 07/02/20 12:29 Urine Catheter - Catheter Urine Culture - Preliminary GNR lactose tents assembler GNR lactose tents assembler#2 Alpha hemolytic organism 07/02/20 12:27 Mucosa - Nose SARS-CoV-2 Antigen (Rapid) - Final Laboratory Results 07/02/20 12:00: Diff Path Review Reviewed 07/02/20 12:29: Urine Color Radha, Urine Clarity Cloudy, Urine pH 6.0, Ur Specific [place] 1.025, Urine Protein 30 H, Urine Glucose (UA) Normal, Urine Ket ones 15 H, Urine Occult Blood 10 H, Urine Nitrite Positive H, Urine Bilirubin 1 H, Urine Urobilinogen 4 H, Ur Leukocyte Esterase 500 H, Urine RBC 0-5 SEEN, Urine WBC 25-50 SEEN, Ur Squamous Epith Cells 0-5 SEEN, Amorphous Sediment 1+ URATE, Urine Bacteria 2+, Urine Mucus 0 SEEN 07/02/20 21:36: POC Glucose 98 07/03/20 06:00: WBC 10.0, RBC 3.65 L, Hgb 10.9 L, Hct 34.3 L, MCV 94.0, MCH 29.9, MCHC 31.8 L, RDW Std Deviation 59.8 H, RDW Coeff of Ralph 17.6 H, Plt Count 187, MPV 10.9, Immature Gran % (Auto) 0.200, Neut % (Auto) 63.6, Lymph % (Auto) 20.1, Owen % (Auto) 13.5 H, Eos % (Auto) 1.9, Baso % (Auto) 0.7, Absolute Neuts (auto) 6.4, Absolute Lymphs (auto) 2.01, Nucleated RBC % 0 07/03/20 06:00: Sodium 148 H, Potassium 3.4 L, Chloride 118 H, Carbon Dioxide 20.0 L, Anion Gap 10, BUN 14, Creatinine 0.62, Estim Creat Clear Calc 104.64, Est GFR (MDRD) Af Amer 130, Est GFR (MDRD) Non-Af 107, BUN/Creatinine Ratio 22.7 H, Glucose 101, Calcium 7.9 L, Total Bilirubin 0.90, AST 34, ALT 20, Alkaline Phosphatase 87, Total Protein 6.3 L, Albumin 2.4 L, Globulin 3.9, Albumin/Globulin Ratio 0.6 L 07/03/20 06:33: POC Glucose 102 07/03/20 11:00: POC Glucose 110 07/03/20 11:05: Specimen Type ART, Sample Site L Radial, pH 7.47 H, Bicarbonate Actual 18.8 L, Total CO2 20, Base Excess -5 L, O2 Saturation 100 H, O2 % 28, ABG pCO2 25.6 L, ABG pO2 156 H, Bear Test Positive, O2 Delivery Device Cannula 07/03/20 12:55: Ammonia 29.0 07/03/20 16:59: POC Glucose 141 H Current Medications Acetaminophen (Acetaminophen 325 Mg Tablet) 650 mg PO Q6H PRN PRN PRN Reason: Pain Score 1-10/Temp > 100.7 F Albuterol Sulfate (Albuterol 2.5 Mg/3 Ml Vial.Neb.) 2.5 mg INHALATION Q2H PRN PRN PRN Reason: Dyspnea, wheezing Albuterol/Ipratropium (Ipratropium/Albuterol Sulfate 3 Ml Ampul.Neb) 3 ml INHALATION Q6H.RT [facility] Last Admin: 07/03/20 12:51 Dose: 3 ml Documented by: Amitriptyline HCl (Amitriptyline 100 Mg Tablet) 100 mg PO DAILY [facility] Last Admin: 07/03/20 10:06 Dose: Not Given Documented by: Ascorbic Acid (Ascorbic Acid 500 Mg Tablet) 500 mg PO DAILY [facility] Last Admin: 07/03/20 10:06 Dose: Not Given Documented by: Aspirin (Aspirin 81 Mg Tab.Chew) 81 mg PO DAILY@0800 [facility] Last Admin: 07/03/20 10:05 Dose: Not Given Documented by: Atorvastatin Calcium (Atorvastatin Calcium 40 Mg Tablet) 40 mg PO QHS [facility] Last Admin: 07/02/20 21:39 Dose: Not Given Documented by: Duloxetine HCl (Duloxetine Hcl 60 Mg Capsule) 60 mg PO DAILY [facility] Last Admin: 07/03/20 10:06 Dose: Not Given Documented by: Enoxaparin Sodium (Enoxaparin 40 Mg/0.4 Ml Syringe) 40 mg SC DAILY [facility] Last Admin: 07/03/20 09:24 Dose: 40 mg Documented by: Hydroxychloroquine Sulfate (Hydroxychloroquine 200 Mg Tablet) 300 mg PO DAILYCM [facility] Last Admin: 07/03/20 10:06 Dose: Not Given Documented by: Sodium Chloride () 1,000 mls @ 150 mls/hr IV .Q6H40M [facility] Last Infusion: 07/03/20 13:51 Dose: 150 mls/hr Documented by: Cefepime HCl 2 gm/ Sodium (Chloride) 100 mls @ 200 mls/hr IV Q8 [facility] Last Infusion: 07/03/20 13:51 Dose: Infused Documented by: Sodium Chloride () 250 mls @ 15 mls/hr IV .[id number] PRN PRN Reason: Saline Flush Sodium Chloride () 250 mls @ 15 mls/hr IV .[id number] PRN PRN Reason: Additional IVPB Infusion Insulin Human Lispro (Insulin Lispro 100 Unit/Ml Insuln.Pen) 0 unit SC ACHS [facility]; Protocol Last Admin: 07/03/20 17:00 Dose: Not Given Documented by: Levothyroxine Sodium (Levothyroxine 150 Mcg Tablet) 150 mcg PO 0600 [facility] Last Admin: 07/03/20 06:04 Dose: Not Given Documented by: Melatonin (Melatonin 10 Mg Tablet) 10 mg PO QHS [facility] Last Admin: 07/02/20 21:39 Dose: Not Given Documented by: Methylprednisolone (Methylprednisolone 40 Mg/Ml Vial) 40 mg IV Q8 [facility] Last Admin: 07/03/20 11:03 Dose: 40 mg Documented by: Nystatin (Nystatin 500,000 Unit/5 Ml Udc) 500,000 unit PO 4X/DAY [facility] Last Admin: 07/03/20 17:01 Dose: Not Given Documented by: Ondansetron HCl (Ondansetron 4 Mg/2 Ml Vial) 4 mg IV Q8H PRN PRN PRN Reason: NAUSEA/VOMITING Oxybutynin Chloride (Oxybutynin 5 Mg Tablet) 10 mg PO DAILY [facility] Last Admin: 07/03/20 10:06 Dose: Not Given Documented by: Pantoprazole Sodium (Pantoprazole Sodium 20 Mg Tablet) 20 mg PO DAILY [facility] Last Admin: 07/03/20 10:06 Dose: Not Given Documented by: Potassium Chloride (Potassium Chloride Oral Tablet 20 Meq) 20 meq PO DAILY [facility] Last Admin: 07/03/20 10:06 Dose: Not Given Documented by: Sodium Chloride (0.9% Saline Lock 10 Ml Syringe) 10 - 40 ml IV UD PRN PRN Reason: SALINE FLUSH Last Admin: 07/03/20 11:03 Dose: 10 ml Documented by: Medical Necessity - Tobacco Use Smoking Status: Former smoker Tobacco Use: Cigarettes Assessment/Plan All Active Problems (Last Reviewed 05/14/20 @ 14:[address] Tk Jose, DO) JANESSA (acute kidney injury) (Acute) UTI (urinary tract infection) (Acute) COVID-19 (Acute) Lactic acidosis (Acute) Declining functional status (Acute) Fall (Acute) Debility (Acute) Acute encephalopathy (Acute) Sepsis (Acute) Sepsis (Acute) UTI (urinary tract infection) (Acute) Acute encephalopathy (Acute) Severe sepsis (Acute) Acute respiratory failure with hypoxia (Resolved) Aspiration pneumonia (Resolved) Diarrhea (Resolved) History of Clostridium difficile (Resolved) Overdose (Resolved) Unresponsive episode (Resolved) Acute exacerbation of chronic obstructive pulmonary disease (COPD) (Ruled-out) SIRS with Severe sepsis due to UTI (Ruled-out) Urinary tract infection (Ruled-out) #1 acute metabolic encephalopathy-continue supportive care at this time, probably secondary to acute sepsis #2 acute sepsis secondary to urinary tract infection-continue present antibiotic coverage #3 hypokalemia-potassium replacement will be provided, recheck labs tomorrow #4 chronic obstructive pulmonary disease-I had a blood gas performed on the patient today, it shows no evidence of hypercapnia and the patient is not acidotic. We will try to wean her oxygen if possible. I will place the patient on IV corticosteroids due to expiratory wheezing today and she will get programmed breathing treatments every 6 hours. #5 morbid obesity #6 type 2 diabetes-continue Accu-Cheks and insulin coverage #7 essential hypertension #8 hypothyroidism #9 chronic depression and anxiety #10 hyperlipidemia #11 mild hyponatremia-I will change the patient's IV fluids to D5 half-normal Inpatient E&M: 79517 Subs Hosp L2
[2020-07-03] MEDS: Dext 5%-0.45% NS 1,000 ML 150 ML IV (18:42)
[2020-07-03 22:00] LABS: Bedside Glucose 140 mg/dL (70-110)
[2020-07-04] VITALS (15 sets, daily range): BP systolic 114–129; BP diastolic 55–92; PULSE 101–109; RESP 17–24; TEMP 36.7–37.2; O2SAT 94–98
[2020-07-04] MEDS: Dext 5%-0.45% NS 1,000 ML 150 ML IV ×3 (02:10→22:29)
[2020-07-04] MEDS: Insulin Lispro 100 UNIT/ML INSULN.PEN SC ×3 (06:28→22:25)
[2020-07-04 06:46] LABS: Bedside Glucose 151 mg/dL (70-110)
[2020-07-04] MEDS: Ipratropium/Albuterol Sulfate 3 ML AMPUL.NEB INHALATION ×3 (07:06→19:19)
[2020-07-04 07:39] LABS: Anion Gap 12 (5-15); BUN 13 mg/dL (7-18); BUN/Creat Ratio 21.1 RATIO (10-20); Calcium,Total 7.9 mg/dL (8.5-10.1); Chloride 118 mmol/L (98-107); Creatinine, Serum 0.62 mg/dL (0.55-1.02); EST Glomerular Filtration Rate 107 mL/min (>60); Est Glom Filt Rate - Afr Amer 130 mL/min (>60); Estimated Creatinine Clearance 104.64 ml/min; Glucose 108 mg/dL (74-106); Potassium 3.7 mmol/L (3.5-5.1); Sodium Level 148 mmol/L (136-145)
--- NOTE | 2020-07-04 10:55 | MRI_ITS ---
STUDY: MRI BRAIN WITHOUT CONTRAST REASON FOR EXAM: Female, 54 years old. encephalopathy TECHNIQUE: Standardized multiplanar fat and water weighted pulse sequences were obtained. COMPARISON: CT 07/02/2020 FINDINGS: Normal size of the ventricles and extra-axial spaces for the patient''s age. Normal white matter tracts of the supratentorial brain. There is no evidence for recent intracranial ischemia or other cause of cytotoxic edema on diffusion weighted imaging (DWI). Normal T2* images of the brain without demonstrated susceptibility artifact. There is no demonstrated hemosiderin stain. Normal bilateral basal ganglia. Normal thalami. There is no extra-axial fluid accumulation. Normal flow voids within the major intracranial circulation suggesting patency by spin echo criteria. Normal sella turcica, pituitary gland, infundibular stalk, optic chiasm and hypothalamus. Normal tectal plate and pineal gland. Normal midbrain, nelsy and medulla. Normal cerebellum. Normal basal cisterns. There is mild chronic otomastoiditis of the left temporal bone. Normal bilateral internal auditory canals. There are bilateral ocular lens implants with otherwise normal intraorbital contents. Normal visualized paranasal sinuses. Normal calvarium and skull base. Normal visualized soft tissue structures. Normal visualized upper cervical spine. MRI/Brain without Contrast IMPRESSION: Normal unenhanced MRI of the brain. Electronically Signed: Jak Merino MD at 15:46 EDT Tel , Service support ,
[2020-07-04 11:41] LABS: Bedside Glucose 191 mg/dL (70-110)
[2020-07-04] MEDS: Enoxaparin 40 MG/0.4 ML Syringe SC (11:49)
--- NOTE | 2020-07-04 14:03 | CASEMGMT ---
Social Work Note SW reviewed handoff communication. Pt Alert and Orientated x0, moans, mumbles, refused to take pills, confused, not following commands. YUSUF placed a call to pt's mother Mariam. SW introduced self and role at [facility]. Mariam confirms pt was at [facility] and was there since April. Mariam states pt was at [facility], got COVID, went to a place in [place], back to [facility] and then to [facility]. Mariam states pt has gradually gotten worse since she had COVID. Mariam states that if pt is unable to make decisions for herself, she would prefer for pt to discharge to [facility] as pt has been there before and it is closer for Mariam. SW informed Mariam that tests are still being ran, SW will continue to follow pt. SW in to speak with pt. SW introduced self and role. Pt laying in bed and eyes are open. Pt nonverbal at this time. YUSUF asked pt if she will be returning to [facility] at discharge, pt didn't respond. YUSUF asked pt to blink if pt wanted to return to [facility] and pt blinked her eyes. YUSUF asked pt to move her toes if she wanted to return to [facility] and pt moved toes/foot. YUSUF discussed case with Adriel FREITAS. YUSUF will meet with pt tomorrow to continue discussion of discharge plans. YUSUF faxed updated clinicals to [facility]. Plan: [facility] Katherin Tavares ENAMEL CRACKER, ADVERTISING SALES REPRESENTATIVE
[2020-07-04] MEDS: 0.9% Saline Lock 10 ML Syringe IV ×2 (15:36→22:24)
--- NOTE | 2020-07-04 17:08 | PCM.PROGNOTE ---
Patient Problems: Active and Suspected Problems (Last Reviewed 05/14/20 @ 14:[address] Tk Jose, DO) UTI (urinary tract infection) (Acute) Acute encephalopathy (Acute) Sepsis (Acute) Sepsis (Acute) UTI (urinary tract infection) (Acute) Acute encephalopathy (Acute) Subjective: Patient was seen and examined today, she does not perform any purposeful movements upon any commands, she does not verbally respond when talked to today. I talked to the patient's mother today who visited her yesterday and today, she stated that the patient was able to open her eyes and try to say the word mother but then did not finish the word and closed her eyes. I had an MRI performed today which showed no evidence of stroke, I ordered an EEG which will have to be done tomorrow. I think it is unlikely the patient has seizures. Patient's urine culture grew out multiple organisms, exact sensitivity of which are pending. Patient's vital signs appear to be stable at this time, she is on room air. Objective: General: No apparent distress, Well developed, Lethargic HEENT: Atraumatic, PERRLA, EOMI, Normocephalic Neck: Supple, No JVD, Trachea Midline, Thyroid Normal Size and Texture Lungs: Clear to auscultation, Normal air movement, No rhonchi, No wheeze, No rales Cardiovascular: Regular rate, Regular Rhythm, Normal S1, Normal S2, No murmurs, PMI Normal, No rub noted, No Gallop Abdomen: Bowel Sounds Present, Soft, Non Tender, Non-Distended, Obese Extremities: No clubbing, No cyanosis, No edema, Capillary Refill Less than 3 Seconds Skin: No rashes, No breakdown Musculoskeletal: No Tenderness to Palpation of Joints or Extremities Neurological: Cranial nerves II-XII grossly intact, Neuro grossly intact, Sensory exam intact to light touch and pain Psych/Mental Status: - - Patient is lethargic, she does respond to painful stimuli and she responds to verbal stimulation but does not talk or follow commands - Physical Exam Vitals/I&O's: Vital Signs Temp Pulse Resp BP Pulse Ox 98.9 F 104 H 18 114/55 L 98 07/04/20 16:46 07/04/20 16:46 07/04/20 16:46 07/04/20 16:46 07/04/20 16:46 Oxygen Flow Rate (L/min) 2 Oxygen Delivery Method Room Air Weight: 131.8 kg Body Mass Index (BMI) 44.0 Finger Stick Blood Glucose 294 Intake and Output for Last 24 Hours 07/02/20 07/03/20 07/04/20 23:59 23:59 23:59 Intake Total 2142.5 / 2142.5 3128.67 / 3128.67 2647.5 / 2647.5 Output Total 350 / 350 525 / 725 475 / 475 Balance 1792.5 / 1792.5 2603.67 / 2403.67 2172.5 / 2172.5 Microbiology Past 72 Hours 07/02/20 12:00 Blood Culture (Wb) - Anticubital Left Blood Culture - Preliminary No growth in 48 hours. 07/02/20 12:15 Blood Culture (Wb) - Left Wrist Blood Culture - Preliminary No growth in 48 hours. 07/02/20 12:29 Urine Catheter - Catheter Urine Culture - Preliminary GNR lactose hand thermal cutter GNR lactose hand thermal cutter#2 Alpha Hemolytic Streptococcus 07/02/20 12:27 Mucosa - Nose SARS-CoV-2 Antigen (Rapid) - Final Laboratory Results 07/02/20 12:29: Urine Color Radha, Urine Clarity Cloudy, Urine pH 6.0, Ur Specific [place] 1.025, Urine Protein 30 H, Urine Glucose (UA) Normal, Urine Ketones 15 H, Urine Occult Blood 10 H, Urine Nitrite Positive H, Urine Bilirubin 1 H, Urine Urobilinogen 4 H, Ur Leukocyte Esterase 500 H, Urine RBC 0-5 SEEN, Urine WBC 25-50 SEEN, Ur Squamous Epith Cells 0-5 SEEN, Amorphous Sediment 1+ URATE, Urine Bacteria 2+, Urine Mucus 0 SEEN 07/03/20 21:22: POC Glucose 140 H 07/04/20 06:26: POC Glucose 151 H 07/04/20 06:40: Sodium 148 H, Potassium 3.7, Chloride 118 H, Carbon Dioxide 18.0 L, Anion Gap 12, BUN 13, Creatinine 0.62, Estim Creat Clear Calc 104.64, Est GFR (MDRD) Af Amer 130, Est GFR (MDRD) Non-Af 107, BUN/Creatinine Ratio 21.1 H, Glucose 108 H, Calcium 7.9 L 07/04/20 11:32: POC Glucose 191 H Current Medications Acetaminophen (Acetaminophen 325 Mg Tablet) 650 mg PO Q6H PRN PRN PRN Reason: Pain Score 1-10/Temp > 100.7 F Albuterol Sulfate (Albuterol 2.5 Mg/3 Ml Vial.Neb.) 2.5 mg INHALATION Q2H PRN PRN PRN Reason: Dyspnea, wheezing Albuterol/Ipratropium (Ipratropium/Albuterol Sulfate 3 Ml Ampul.Neb) 3 ml INHALATION Q6H.RT [facility] Last Admin: 07/04/20 13:03 Dose: 3 ml Documented by: Amitriptyline HCl (Amitriptyline 100 Mg Tablet) 100 mg PO DAILY [facility] Last Admin: 07/04/20 11:06 Dose: Not Given Documented by: Ascorbic Acid (Ascorbic Acid 500 Mg Tablet) 500 mg PO DAILY [facility] Last Admin: 07/04/20 11:05 Dose: Not Given Documented by: Aspirin (Aspirin 81 Mg Tab.Chew) 81 mg PO DAILY@0800 [facility] Last Admin: 07/04/20 11:07 Dose: Not Given Documented by: Atorvastatin Calcium (Atorvastatin Calcium 40 Mg Tablet) 40 mg PO QHS [facility] Last Admin: 07/03/20 21:14 Dose: Not Given Documented by: Duloxetine HCl (Duloxetine Hcl 60 Mg Capsule) 60 mg PO DAILY [facility] Last Admin: 07/04/20 11:06 Dose: Not Given Documented by: Enoxaparin Sodium (Enoxaparin 40 Mg/0.4 Ml Syringe) 40 mg SC DAILY [facility] Last Admin: 07/04/20 11:49 Dose: 40 mg Documented by: Hydroxychloroquine Sulfate (Hydroxychloroquine 200 Mg Tablet) 300 mg PO DAILYCM [facility] Last Admin: 07/04/20 11:07 Dose: Not Given Documented by: Cefepime HCl 2 gm/ Sodium (Chloride) 100 mls @ 200 mls/hr IV Q8 [facility] Last Admin: 07/04/20 15:36 Dose: 200 mls/hr Documented by: Sodium Chloride () 250 mls @ 15 mls/hr IV .[id number] PRN PRN Reason: Saline Flush Sodium Chloride () 250 mls @ 15 mls/hr IV .[id number] PRN PRN Reason: Additional IVPB Infusion Dextrose/Sodium Chloride () 1,000 mls @ 150 mls/hr IV .Q6H40M [facility] Last Infusion: 07/04/20 15:30 Dose: 150 mls/hr Documented by: Insulin Human Lispro (Insulin Lispro 100 Unit/Ml Insuln.Pen) 0 unit SC ACHS [facility]; Protocol Last Admin: 07/04/20 11:51 Dose: 2 units Documented by: Levothyroxine Sodium (Levothyroxine 150 Mcg Tablet) 150 mcg PO 0600 [facility] Last Admin: 07/04/20 06:32 Dose: Not Given Documented by: Melatonin (Melatonin 10 Mg Tablet) 10 mg PO QHS [facility] Last Admin: 07/03/20 21:14 Dose: Not Given Documented by: Methylprednisolone (Methylprednisolone 40 Mg/Ml Vial) 40 mg IV Q8 [facility] Last Admin: 07/04/20 15:36 Dose: 40 mg Documented by: Nystatin (Nystatin 500,000 Unit/5 Ml Udc) 500,000 unit PO 4X/DAY [facility] Last Admin: 07/04/20 16:05 Dose: Not Given Documented by: Ondansetron HCl (Ondansetron 4 Mg/2 Ml Vial) 4 mg IV Q8H PRN PRN PRN Reason: NAUSEA/VOMITING Oxybutynin Chloride (Oxybutynin 5 Mg Tablet) 10 mg PO DAILY [facility] Last Admin: 07/04/20 11:06 Dose: Not Given Documented by: Pantoprazole Sodium (Pantoprazole Sodium 20 Mg Tablet) 20 mg PO DAILY [facility] Last Admin: 07/04/20 11:06 Dose: Not Given Documented by: Potassium Chloride (Potassium Chloride Oral Tablet 20 Meq) 20 meq PO DAILY [facility] Last Admin: 07/04/20 11:06 Dose: Not Given Documented by: Sodium Chloride (0.9% Saline Lock 10 Ml Syringe) 10 - 40 ml IV UD PRN PRN Reason: SALINE FLUSH Last Admin: 07/04/20 15:36 Dose: 10 ml Documented by: Medical Necessity - Tobacco Use Smoking Status: Former smoker Tobacco Use: Cigarettes Assessment/Plan All Active Problems (Last Reviewed 05/14/20 @ 14:[address] Tk Jose, DO) JANESSA (acute kidney injury) (Acute) UTI (urinary tract infection) (Acute) COVID-19 (Acute) Lactic acidosis (Acute) Declining functional status (Acute) Fall (Acute) Debility (Acute) Acute encephalopathy (Acute) Sepsis (Acute) Sepsis (Acute) UTI (urinary tract infection) (Acute) Acute encephalopathy (Acute) Severe sepsis (Acute) Acute respiratory failure with hypoxia (Resolved) Aspiration pneumonia (Resolved) Diarrhea (Resolved) History of Clostridium difficile (Resolved) Overdose (Resolved) Unresponsive episode (Resolved) Acute exacerbation of chronic obstructive pulmonary disease (COPD) (Ruled-out) SIRS with Severe sepsis due to UTI (Ruled-out) Urinary tract infection (Ruled-out) #1 acute metabolic encephalopathy-continue supportive care at this time, probably secondary to acute sepsis, EEG will be performed tomorrow, I talked at length with the patient's mother. #2 acute sepsis secondary to urinary tract infection-continue present antibiotic coverage #3 hypokalemia-potassium replacement will be provided, recheck labs tomorrow #4 chronic obstructive pulmonary disease patient is currently on room air, I will decrease the patient's IV Solu-Medrol to 40 mg every 12 #5 morbid obesity #6 type 2 diabetes-continue Accu-Cheks and insulin coverage #7 essential hypertension #8 hypothyroidism #9 chronic depression and anxiety #10 hyperlipidemia #11 mild hyponatremia-patient will remain on her current fluids, repeat BMP in the morning Inpatient E&M: [id number] Subs Hosp L2
[2020-07-04 17:15] LABS: Bedside Glucose 139 mg/dL (70-110)
[2020-07-04 22:41] LABS: Bedside Glucose 164 mg/dL (70-110)
[2020-07-05] VITALS (12 sets, daily range): BP systolic 124–141; BP diastolic 71–84; PULSE 82–116; RESP 14–24; TEMP 36.5–36.8; O2SAT 96–100
[2020-07-05] MEDS: Dext 5%-0.45% NS 1,000 ML 150 ML IV ×3 (06:27→21:52)
[2020-07-05] MEDS: 0.9% Saline Lock 10 ML Syringe IV ×4 (06:28→21:52)
[2020-07-05 06:46] LABS: Bedside Glucose 134 mg/dL (70-110)
[2020-07-05] MEDS: Ipratropium/Albuterol Sulfate 3 ML AMPUL.NEB INHALATION ×3 (06:54→19:30)
[2020-07-05] MEDS: Enoxaparin 40 MG/0.4 ML Syringe SC (10:33)
[2020-07-05] MEDS: Ceftriaxone 1 GM/50 ML BAG IV (10:47)
[2020-07-05 10:51] LABS: Bedside Glucose 120 mg/dL (70-110)
--- NOTE | 2020-07-05 11:54 | CASEMGMT ---
Addendum entered by Katherin Tavares 07/05/20 14:45: Pt's mother Mariam is at [facility]. SW in to speak with pt and Mariam. Pt no longer moaning. SW introduced self and role at [facility]. SW informed Mariam that this worker was in pt's room earlier today and yesterday and discussed with pt discharge planning. SW informed Mariam that this worker yesterday asked pt to blink her eyes if she wanted to return to [facility] and pt blinked. SW had asked pt to wiggle her toes if she wanted to return to [facility] and pt moved her foot. Today SW asked pt to raise her arm if she wanted to return to [facility] and pt raised her arm. SW explained that yesterday and today pt had indicated to this worker on different occasions that she wanted to return to [facility]. SW informed Mariam that this worker had told pt that Mariam wanted her to go to [facility] and pt moaned louder. SW explained that at this time, pt has responded in some way about returning to [facility] at [facility]. SW informed Mariam that pt's bed is on bed hold at [facility] and once pt returns to [facility] if pt becomes able to communicate verbally and pt chooses to go to a different SNF, then [facility] can help facilitate that transfer. YUSUF reiterated that the last time pt was at [facility], pt choose [facility] to go to. YUSUF placed a call to Eileen at [facility]. Pt's bed hold is good for 30 days. SW to continue to follow. Original Note: Social Work Note SW in to speak with pt to continue discussion of discharge plans. Pt currently moaning, didn't stop when this worker entered the room. SW attempted to speak with pt regarding discharge plans. SW asked pt if she could talk and tell this worker if she wanted to return to [facility], pt kept moaning. SW informed pt that her mother wants pt to go to [facility], pt moaned louder. SW asked pt to raise her arm if she wanted to return to [facility] and pt raised arm and put it on her chest. Katherin Tavares BOTTOM FILLER, STATION ENGINEER CHIEF
--- NOTE | 2020-07-05 12:44 | TELEMED_ITS ---
[facility] Telemed has confirmed receipt of a request for visit. This document confirms receipt of the order initiating the consult. To find the results of the consultation, please view the patient's reports for the scanned Telemed Consult.
[2020-07-05 16:20] LABS: Bedside Glucose 133 mg/dL (70-110)
--- NOTE | 2020-07-05 17:38 | PN_ITS ---
Patient Problems: Active and Suspected Problems (Last Reviewed 05/14/20 @ 14:[address] Tk Jose, DO) UTI (urinary tract infection) (Acute) Acute encephalopathy (Acute) Sepsis (Acute) Sepsis (Acute) UTI (urinary tract infection) (Acute) Acute encephalopathy (Acute) Subjective: Patient was seen and examined today, she remains nonverbal, she is moaning and does not follow commands. According to case management and social media developer however, patient does respond to questions by blinking her eye or moving her arm. I could not get the patient to respond to any of my questions. Patient is EEG did not show any evidence of seizure disorder only diffuse slowing. I talked with the patient's mother by phone today, I am not certain what is causing the patient's encephalopathy but her vital signs appear stable and she does not appear septic. - Physical Exam Vitals/I&O's: Vital Signs Temp Pulse Resp BP Pulse Ox 97.9 F 105 H 18 135/84 H 100 07/05/20 14:26 07/05/20 14:26 07/05/20 14:26 07/05/20 14:26 07/05/20 14:26 Oxygen Flow Rate (L/min) 2 Oxygen Delivery Method Room Air Weight: 132 kg Body Mass Index (BMI) 44.0 Finger Stick Blood Glucose 294 Intake and Output for Last 24 Hours 07/03/20 07/04/20 07/05/20 23:59 23:59 23:59 Intake Total 3128.67 / 3128.67 3302.5 / 3302.5 1725.0 / 1725.0 Output Total 525 / 725 675 / 675 825 / 825 Balance 2603.67 / 2403.67 2627.5 / 2627.5 900.0 / 900.0 General: Confused, Lethargic HEENT: Atraumatic, Normocephalic Oral: Moist Mucosa Neck: Supple, No JVD, Trachea Midline, Thyroid Normal Size and Texture Lungs: Clear to auscultation, Normal air movement, No rhonchi, No wheeze, No rales Cardiovascular: Regular rate, Regular Rhythm, Normal S1, Normal S2, No murmurs Abdomen: Bowel Sounds Present, Soft, Non Tender, Non-Distended Extremities: No clubbing, No cyanosis, No edema, Capillary Refill Less than 3 Seconds Skin: No rashes, No breakdown Musculoskeletal: No Tenderness to Palpation of Joints or Extremities Neurological: Cranial nerves II-XII grossly intact, Neuro grossly intact Psych/Mental Status: - - Patient is somnolent and confused, she moves all extremities and moans. Microbiology Past 72 Hours 07/02/20 12:29 Urine Catheter - Catheter Urine Culture - Final Klebsiella pneumoniae sp pneum Escherichia coli Aerococcus urinae 07/02/20 12:00 Blood Culture (Wb) - Anticubital Left Blood Culture - Preliminary No growth in 48 hours. 07/02/20 12:15 Blood Culture (Wb) - Left Wrist Blood Culture - Preliminary No growth in 48 hours. Laboratory Results 07/04/20 22:24: POC Glucose 164 H 07/05/20 06:35: POC Glucose 134 H 07/05/20 10:43: POC Glucose 120 H 07/05/20 16:14: POC Glucose 133 H Current Medications Acetaminophen (Acetaminophen 325 Mg Tablet) 650 mg PO Q6H PRN PRN PRN Reason: Pain Score 1-10/Temp > 100.7 F Albuterol Sulfate (Albuterol 2.5 Mg/3 Ml Vial.Neb.) 2.5 mg INHALATION Q2H PRN PRN PRN Reason: Dyspnea, wheezing Albuterol/Ipratropium (Ipratropium/Albuterol Sulfate 3 Ml Ampul.Neb) 3 ml INHALATION Q6H.RT [facility] Last Admin: 07/05/20 12:56 Dose: 3 ml Documented by: Amitriptyline HCl (Amitriptyline 100 Mg Tablet) 100 mg PO DAILY [facility] Last Admin: 07/05/20 09:44 Dose: Not Given Documented by: Ascorbic Acid (Ascorbic Acid 500 Mg Tablet) 500 mg PO DAILY [facility] Last Admin: 07/05/20 09:45 Dose: Not Given Documented by: Aspirin (Aspirin 81 Mg Tab.Chew) 81 mg PO DAILY@0800 [facility] Last Admin: 07/05/20 09:43 Dose: Not Given Documented by: Atorvastatin Calcium (Atorvastatin Calcium 40 Mg Tablet) 40 mg PO QHS [facility] Last Admin: 07/04/20 22:07 Dose: Not Given Documented by: Duloxetine HCl (Duloxetine Hcl 60 Mg Capsule) 60 mg PO DAILY [facility] Last Admin: 07/05/20 09:43 Dose: Not Given Documented by: Enoxaparin Sodium (Enoxaparin 40 Mg/0.4 Ml Syringe) 40 mg SC DAILY [facility] Last Admin: 07/05/20 10:33 Dose: 40 mg Documented by: Hydroxychloroquine Sulfate (Hydroxychloroquine 200 Mg Tablet) 300 mg PO DAILYCM [facility] Last Admin: 07/05/20 09:43 Dose: Not Given Documented by: Sodium Chloride () 250 mls @ 15 mls/hr IV .[id number] PRN PRN Reason: Saline Flush Sodium Chloride () 250 mls @ 15 mls/hr IV .[id number] PRN PRN Reason: Additional IVPB Infusion Dextrose/Sodium Chloride () 1,000 mls @ 150 mls/hr IV .Q6H40M [facility] Last Admin: 07/05/20 14:57 Dose: 150 mls/hr Documented by: Ceftriaxone Sodium (Rocephin) 1 gm in 50 mls @ 100 mls/hr IV Q24 [facility] Last Infusion: 07/05/20 11:17 Dose: Infused Documented by: Insulin Human Lispro (Insulin Lispro 100 Unit/Ml Insuln.Pen) 0 unit SC ACHS [facility]; Protocol Last Admin: 07/05/20 16:47 Dose: Not Given Documented by: Levothyroxine Sodium (Levothyroxine 150 Mcg Tablet) 150 mcg PO 0600 [facility] Last Admin: 07/05/20 06:27 Dose: Not Given Documented by: Melatonin (Melatonin 10 Mg Tablet) 10 mg PO QHS [facility] Last Admin: 07/04/20 22:08 Dose: Not Given Documented by: Methylprednisolone (Methylprednisolone 40 Mg/Ml Vial) 40 mg IV Q12 [facility] Last Admin: 07/05/20 10:34 Dose: 40 mg Documented by: Nystatin (Nystatin 500,000 Unit/5 Ml Udc) 500,000 unit PO 4X/DAY [facility] Last Admin: 07/05/20 16:48 Dose: Not Given Documented by: Ondansetron HCl (Ondansetron 4 Mg/2 Ml Vial) 4 mg IV Q8H PRN PRN PRN Reason: NAUSEA/VOMITING Oxybutynin Chloride (Oxybutynin 5 Mg Tablet) 10 mg PO DAILY [facility] Last Admin: 07/05/20 09:43 Dose: Not Given Documented by: Pantoprazole Sodium (Pantoprazole Sodium 20 Mg Tablet) 20 mg PO DAILY [facility] Last Admin: 07/05/20 09:45 Dose: Not Given Documented by: Potassium Chloride (Potassium Chloride Oral Tablet 20 Meq) 20 meq PO DAILY MAX Last Admin: 07/05/20 09:44 Dose: Not Given Documented by: Sodium Chloride (0.9% Saline Lock 10 Ml Syringe) 10 - 40 ml IV UD PRN PRN Reason: SALINE FLUSH Last Admin: 07/05/20 10:34 Dose: 10 ml Documented by: Medical Necessity - Tobacco Use Smoking Status: Former smoker Tobacco Use: Cigarettes Assessment/Plan All Active Problems (Last Reviewed 05/14/20 @ 14:[address] Tk Jose, DO) JANESSA (acute kidney injury) (Acute) UTI (urinary tract infection) (Acute) COVID-19 (Acute) Lactic acidosis (Acute) Declining functional status (Acute) Fall (Acute) Debility (Acute) Acute encephalopathy (Acute) Sepsis (Acute) Sepsis (Acute) UTI (urinary tract infection) (Acute) Acute encephalopathy (Acute) Severe sepsis (Acute) Acute respiratory failure with hypoxia (Resolved) Aspiration pneumonia (Resolved) Diarrhea (Resolved) History of Clostridium difficile (Resolved) Overdose (Resolved) Unresponsive episode (Resolved) Acute exacerbation of chronic obstructive pulmonary disease (COPD) (Ruled-out) SIRS with Severe sepsis due to UTI (Ruled-out) Urinary tract infection (Ruled-out) #1 acute metabolic encephalopathy-continue supportive care at this time, the etiology is unknown at this time #2 acute sepsis secondary to urinary tract infection-secondary to Klebsiella pneumoniae, E. coli, and Aerococcus-patient was changed to Rocephin today #3 hypokalemia-corrected at this time #4 chronic obstructive pulmonary disease patient is currently on room air, I will stop the patient's Solu-Medrol #5 morbid obesity #6 type 2 diabetes-continue Accu-Cheks and insulin coverage #7 essential hypertension #8 hypothyroidism #9 chronic depression and anxiety #10 hyperlipidemia #11 mild hyponatremia-patient will remain on her current fluids, repeat BMP in the morning Inpatient E&M: 95891 Subs Hosp L2
[2020-07-05 22:00] LABS: Bedside Glucose 133 mg/dL (70-110)
[2020-07-06] VITALS (9 sets, daily range): BP systolic 120–139; BP diastolic 66–82; PULSE 94–119; RESP 18–24; TEMP 36.6–37.1; O2SAT 94–99
[2020-07-06] MEDS: Ipratropium/Albuterol Sulfate 3 ML AMPUL.NEB INHALATION ×3 (02:20→13:15)
[2020-07-06] MEDS: Dext 5%-0.45% NS 1,000 ML 150 ML IV (05:12)
[2020-07-06 06:06] LABS: Bedside Glucose 162 mg/dL (70-110)
[2020-07-06] MEDS: Insulin Lispro 100 UNIT/ML INSULN.PEN SC (06:59)
[2020-07-06 07:50] LABS: Anion Gap 12 (5-15); BUN 13 mg/dL (7-18); BUN/Creat Ratio 16.9 RATIO (10-20); Calcium,Total 7.7 mg/dL (8.5-10.1); Chloride 116 mmol/L (98-107); Creatinine, Serum 0.77 mg/dL (0.55-1.02); EST Glomerular Filtration Rate 83 mL/min (>60); Est Glom Filt Rate - Afr Amer 100 mL/min (>60); Estimated Creatinine Clearance 84.25 ml/min; Glucose 154 mg/dL (74-106); Sodium Level 145 mmol/L (136-145)
[2020-07-06] MEDS: Ceftriaxone 1 GM/50 ML BAG IV (09:26)
[2020-07-06] MEDS: Enoxaparin 40 MG/0.4 ML Syringe SC (09:29)
--- NOTE | 2020-07-06 10:46 | CASEMGMT ---
SW attempted to speak w/pt this morning, pt is moaning, eyes half open, does not respond at all to SW's attempt to speak w/her. SW will continue to follow. FORTINO Fortune
--- NOTE | 2020-07-06 11:11 | CASEMGMT ---
According to the [facility] website, the following tertiary facilities are in network: [facility], [place], [facility], [facility], [facility], [place], [facility] and .
[2020-07-06 11:20] LABS: Bedside Glucose 115 mg/dL (70-110)
[2020-07-06] MEDS: Dext 5%-0.45% NS 1,000 ML 100 ML IV (12:04)
[2020-07-06] MEDS: Potassium Chloride 10mEq/100mL 10 MEQ/100 ML IV.SOLN. 100 MEQ IV BOLUS ×2 (12:05→13:24)
[2020-07-06 16:45] LABS: Bedside Glucose 99 mg/dL (70-110)
--- NOTE | 2020-07-06 18:33 | NURSING ---
pt sent with remaining bag of ivf running.
--- NOTE | 2020-07-06 18:41 | DS.PCM_ITS ---
Discharge Date and Diagnosis - Problem List Patient Problems: Active and Suspected Problems (Last Reviewed 05/14/20 @ 14:[address] Tk Jose DO) UTI (urinary tract infection) (Acute) Acute encephalopathy (Acute) Sepsis (Acute) Sepsis (Acute) UTI (urinary tract infection) (Acute) Acute encephalopathy (Acute) Date of Admission: 07/02/20 Date of Discharge: 07/06/20 - Primary Discharge Diagnosis Acute Problems: Active Problems (Last Reviewed 05/14/20 @ 14:[address] Tk Jose DO) #1 acute metabolic encephalopathy-etiology unclear #2 acute sepsis secondary to urinary tract infection-secondary to Klebsiella pneumoniae, E. coli, and Aerococcus #3 hypokalemia #4 chronic obstructive pulmonary disease #5 morbid obesity #6 type 2 diabetes #7 essential hypertension #8 hypothyroidism #9 chronic depression and anxiety #10 hyperlipidemia #11 mild hyponatremia - Secondary Discharge Diagnosis Chronic Problems: Chronic Problems (Last Reviewed 05/14/20 @ 14:[address] Tk Jose DO) Morbid obesity (Chronic) Bronchiectasis (Chronic) Chronic obstructive lung disease (Chronic) Cigarette smoker (Chronic) Rheumatoid arthritis (Chronic) Chronic back pain (Chronic) Obesity, morbid, BMI 50 or higher (Chronic) Drug-seeking behavior (Chronic) Diabetes mellitus, type II (Chronic) Psoriatic arthritis (Chronic) HLD (hyperlipidemia) (Chronic) Hypothyroidism (Chronic) Anxiety and depression (Chronic) GERD (gastroesophageal reflux disease) (Chronic) HTN (hypertension) (Chronic) Hospital Course and Treatment Operations: None Procedures: Electroencephalogram Summary of Care Provided: The patient is a 54 year old F seen in the emergency room at [facility] after she was sent in from a local extended care facility where she was undergoing short-term rehab services due to confusion. Patient had been lethargic and was not able to carry on a conversation. Work-up in the emergency room included labs which showed a slightly elevated white blood cell count, UA indicated a possible urinary tract infection, CT of the head and chest x-ray were both negative. Patient did awaken briefly in the emergency room and spoke a few sentences and then laid back down to sleep. Patient's potassium was 3.2. Patient was admitted to [facility] 3, she was placed on IV antibiotics and IV fluids, she remained lethargic while on MedSurg 3 and she underwent an MRI of the brain which did not show any acute process. Patient also had an EEG which did not show any signs of seizure activity but just showed generalized slowing. Patient's urine culture grew out E. coli, Klebsiella pneumoniae, and Aerococcus. Patient's mental status did not improve significantly during her hospital stay and it was felt she would be better served to be transferred to a tertiary facility for neurological consultation and possibly infectious disease consultation. I discussed this with the patient's mother by phone. On 07/06/2020, patient was seen and examined:General: Confused, Lethargic HEENT: Atraumatic, Normocephalic Oral: Moist Mucosa Neck: Supple, No JVD, Trachea Midline, Thyroid Normal Size and Texture Lungs: Clear to auscultation, Normal air movement, No rhonchi, No wheeze, No rales Cardiovascular: Regular rate, Regular Rhythm, Normal S1, Normal S2, No murmurs Abdomen: Bowel Sounds Present, Soft, Non Tender, Non-Distended Extremities: No clubbing, No cyanosis, No edema, Capillary Refill Less than 3 Seconds Skin: No rashes, No breakdown Musculoskeletal: No Tenderness to Palpation of Joints or Extremities Neurological: Cranial nerves II-XII grossly intact, Neuro grossly intact Psych/Mental Status: - - Patient is somnolent and confused, she moves all extremities and moans. Patient was transferred to [facility] in stable condition on 07/06/2020 for further care. Patient Problems: Active and Suspected Problems (Last Reviewed 05/14/20 @ 14:[address] Tk Jose, DO) UTI (urinary tract infection) (Acute) Acute encephalopathy (Acute) Sepsis (Acute) Sepsis (Acute) UTI (urinary tract infection) (Acute) Acute encephalopathy (Acute) - Physical Exam Vitals/I&O's: Vital Signs Temp Pulse Resp BP Pulse Ox 98.3 F 103 H 20 H 120/82 H 99 07/06/20 14:27 07/06/20 14:27 07/06/20 14:27 07/06/20 14:27 07/06/20 14:27 Oxygen Flow Rate (L/min) 2 Oxygen Delivery Method Room Air Weight: 131.8 kg Body Mass Index (BMI) 44.0 Finger Stick Blood Glucose 294 Intake and Output for Last 24 Hours 04/11/1607/05/20 07/06/20 23:59 23:59 23:59 Intake Total 3302.5 / 3302.5 2725.0 / 2725.0 2205.0 / 2205.0 Output Total 675 / 675 1045 / 1195 1175 / 1175 Balance 2627.5 / 2627.5 1680.0 / 1530.0 1030.0 / 1030.0 Microbiology Past 72 Hours 07/02/20 12:29 Urine Catheter - Catheter Urine Culture - Final Klebsiella pneumoniae sp pneum Escherichia coli Aerococcus urinae 07/02/20 12:00 Blood Culture (Wb) - Anticubital Left Blood Culture - Preliminary No growth in 48 hours. 07/02/20 12:15 Blood Culture (Wb) - Left Wrist Blood Culture - Preliminary No growth in 48 hours. Laboratory Results 07/05/20 21:51: POC Glucose 133 H 07/06/20 06:01: POC Glucose 162 H 07/06/20 06:46: Sodium 145, Potassium 3.0 L, Chloride 116 H, Carbon Dioxide 17.0 L, Anion Gap 12, BUN 13, Creatinine 0.77, Estim Creat Clear Calc 84.25, Est GFR (MDRD) Af Amer 100, Est GFR (MDRD) Non-Af 83, BUN/Creatinine Ratio 16.9, Glucose 154 H, Calcium 7.7 L 07/06/20 11:06: POC Glucose 115 H 07/06/20 16:29: POC Glucose 99 Current Medications Acetaminophen (Acetaminophen 325 Mg Tablet) 650 mg PO Q6H PRN PRN PRN Reason: Pain Score 1-10/Temp > 100.7 F Albuterol Sulfate (Albuterol 2.5 Mg/3 Ml Vial.Neb.) 2.5 mg INHALATION Q2H PRN PRN PRN Reason: Dyspnea, wheezing Albuterol/Ipratropium (Ipratropium/Albuterol Sulfate 3 Ml Ampul.Neb) 3 ml INHALATION Q6H.RT [facility] Last Admin: 07/06/20 13:15 Dose: 3 ml Documented by: Amitriptyline HCl (Amitriptyline 100 Mg Tablet) 100 mg PO DAILY [facility] Last Admin: 07/06/20 08:06 Dose: Not Given Documented by: Ascorbic Acid (Ascorbic Acid 500 Mg Tablet) 500 mg PO DAILY [facility] Last Admin: 07/06/20 08:07 Dose: Not Given Documented by: Aspirin (Aspirin 81 Mg Tab.Chew) 81 mg PO DAILY@0800 [facility] Last Admin: 07/06/20 08:06 Dose: Not Given Documented by: Atorvastatin Calcium (Atorvastatin Calcium 40 Mg Tablet) 40 mg PO QHS [facility] Last Admin: 07/05/20 21:56 Dose: Not Given Documented by: Duloxetine HCl (Duloxetine Hcl 60 Mg Capsule) 60 mg PO DAILY [facility] Last Admin: 07/06/20 08:06 Dose: Not Given Documented by: Enoxaparin Sodium (Enoxaparin 40 Mg/0.4 Ml Syringe) 40 mg SC DAILY [facility] Last Admin: 07/06/20 09:29 Dose: 40 mg Documented by: Hydroxychloroquine Sulfate (Hydroxychloroquine 200 Mg Tablet) 300 mg PO DAILYCM [facility] Last Admin: 07/06/20 08:06 Dose: Not Given Documented by: Sodium Chloride () 250 mls @ 15 mls/hr IV .[id number] PRN PRN Reason: Saline Flush Sodium Chloride () 250 mls @ 15 mls/hr IV .[id number] PRN PRN Reason: Additional IVPB Infusion Dextrose/Sodium Chloride () 1,000 mls @ 150 mls/hr IV .Q6H40M [facility] Last Admin: 07/06/20 12:04 Dose: 100 mls/hr Documented by: Ceftriaxone Sodium (Rocephin) 1 gm in 50 mls @ 100 mls/hr IV Q24 [facility] Last Infusion: 07/06/20 09:59 Dose: Infused Documented by: Insulin Human Lispro (Insulin Lispro 100 Unit/Ml Insuln.Pen) 0 unit SC [facility]; Protocol Last Admin: 07/06/20 16:44 Dose: Not Given Documented by: Levothyroxine Sodium (Levothyroxine 150 Mcg Tablet) 150 mcg PO 0600 [facility] Last Admin: 07/06/20 05:50 Dose: Not Given Documented by: Melatonin (Melatonin 10 Mg Tablet) 10 mg PO QHS [facility] Last Admin: 07/05/20 21:56 Dose: Not Given Documented by: Nystatin (Nystatin 500,000 Unit/5 Ml Udc) 500,000 unit PO 4X/DAY [facility] Last Admin: 07/06/20 16:45 Dose: Not Given Documented by: Ondansetron HCl (Ondansetron 4 Mg/2 Ml Vial) 4 mg IV Q8H PRN PRN PRN Reason: NAUSEA/VOMITING Oxybutynin Chloride (Oxybutynin 5 Mg Tablet) 10 mg PO DAILY [facility] Last Admin: 07/06/20 08:06 Dose: Not Given Documented by: Pantoprazole Sodium (Pantoprazole Sodium 20 Mg Tablet) 20 mg PO DAILY [facility] Last Admin: 07/06/20 08:06 Dose: Not Given Documented by: Potassium Chloride (Potassium Chloride Oral Tablet 20 Meq) 20 meq PO DAILY [facility] Last Admin: 07/06/20 08:06 Dose: Not Given Documented by: Sodium Chloride (0.9% Saline Lock 10 Ml Syringe) 10 - 40 ml IV UD PRN PRN Reason: SALINE FLUSH Last Admin: 07/05/20 21:52 Dose: 10 ml Documented by: Home Medications: Medications to take at Discharge Duloxetine HCl 60 mg PO DAILY 08/28/15 Hydroxychloroquine [Plaquenil] 300 mg PO DAILYCM 06/05/18 Amitriptyline HCl [Elavil] 100 mg PO DAILY 01/31/20 Aspirin [Aspirin, Baby] 81 mg PO DAILY@0800 01/31/20 Cholecalciferol (Vitamin D3) [Vitamin D3] 2,000 unit PO DAILY 01/31/20 Fluticasone/Vilanterol [Breo Ellipta 200-25 Mcg INH] 1 puff INHALATION DAILY 01/31/20 Omeprazole [Prilosec] 20 mg PO DAILY 01/31/20 Quetiapine Fumarate 300 mg PO QHS 01/31/20 Sitagliptin Phosphate [Januvia] 100 mg PO DAILY 01/31/20 Tofacitinib Citrate [Xeljanz] 5 mg PO BID 01/31/20 Furosemide [Lasix] 20 mg PO DAILY 02/19/20 Ascorbic Acid [Vitamin C] 500 mg PO DAILY 05/12/20 Oxybutynin [Ditropan] 10 mg PO DAILY 05/12/20 Ipratropium/Albuterol Respimat [Combivent Respimat Inhal [place]] 1 puff INHALATION BID 05/14/20 Acetaminophen [Tylenol] 1,000 mg PO TID PRN 07/02/20 Atorvastatin Calcium [Lipitor] 40 mg PO QHS 07/02/20 Cranberry Fruit Extract [Cranberry] 750 mg PO BID 07/02/20 Gabapentin [Neurontin] 400 mg PO TIDCM 07/02/20 Hydroxyzine Pamoate [Vistaril] 50 mg PO 4X/DAY PRN PRN 07/02/20 Levothyroxine Sodium [Levo-T] 150 mcg PO DAILY 07/02/20 Melatonin 10 mg PO QHS 07/02/20 Nicotine [Nicotine Patch] 1 each TOPICAL DAILY 07/02/20 Potassium Chloride [Klor-Con 10] 20 mg PO DAILY 07/02/20 Primary Care Physician: Fredy Walsh MD [Primary Care Provider] - Disposition: Acute care Hospital Minutes spent on discharge:: 32 Patient Condition:: Stable Medical Necessity - Tobacco Use Smoking Status: Former smoker Tobacco Use: Cigarettes Meaningful Use Info Meaningful Use Diagnoses (Choose all that apply): None applicable Inpatient E&M: 97051 Disch Hosp
== END 2020-07-06 18:43 | disposition short-term general hospital (02) | DRG 871 ==
LOC: ED 14:41 → MS3 14:46
PROVIDERS: Admitting Provider Family Medicine; Emergency Provider Emergency Medicine; PCP Family Medicine; Visit Provider Internal Medicine
DX: A41.51 Sepsis due to Escherichia coli [E. coli] (principal); G93.41 Metabolic encephalopathy; N39.0 Urinary tract infection, site not specified; Z68.41 Body mass index [BMI] 40.0-44.9, adult; E87.0 Hyperosmolality and hypernatremia; B96.1 Klebsiella pneumoniae [K. pneumoniae] as the cause of diseases classified elsewhere; E87.6 Hypokalemia; J43.2 Centrilobular emphysema; J47.9 Bronchiectasis, uncomplicated; E11.42 Type 2 diabetes mellitus with diabetic polyneuropathy; I10 Essential (primary) hypertension; E78.5 Hyperlipidemia, unspecified; E03.9 Hypothyroidism, unspecified; M06.9 Rheumatoid arthritis, unspecified; L40.50 Arthropathic psoriasis, unspecified; K21.9 Gastro-esophageal reflux disease without esophagitis; F31.9 Bipolar disorder, unspecified; F41.9 Anxiety disorder, unspecified; Z76.5 Malingerer [conscious simulation]; M54.9 Dorsalgia, unspecified; G89.29 Other chronic pain; Z20.822 Contact with and (suspected) exposure to COVID-19; Z66 Do not resuscitate; E66.01 Morbid (severe) obesity due to excess calories; Z79.82 Long term (current) use of aspirin; Z79.84 Long term (current) use of oral hypoglycemic drugs; Z79.890 Hormone replacement therapy; Z79.899 Other long term (current) drug therapy; Z87.440 Personal history of urinary (tract) infections; Z87.891 Personal history of nicotine dependence; Z98.84 Bariatric surgery status
CPT/HCPCS: 36415; 36600; 51702; 70450; 70551; 71045; 80048; 80053; 81001; 82140; 82803; 82962; 83605; 83735; 85025; 85610; 85730; 87040; 87077; 87086; 87088; 87186; 87426; 93005; 94640; 95819; 97110; 97162; 97166; 99285; J7030; A4216; J7799